=== PATIENT | female | born 1945 | race Caucasian/White ===

== ENCOUNTER 2016-09-19 22:43 | Inpatient (IN) | payer BC, OTHER ==
[~2016-09-19] VITALS: Ht 162.6 cm; Wt 102.3 kg
[~2016-09-19 22:43] MED LIST: ACET-1311 PO; ADVIN25050 INH; AMOX1TAB43 PO; CRDCD240 PO; DXY100 PO; EMOL-63 TOP; FERR325T74 PO; HYDR-5688 PO; INSU70IN2 SC; LEVO200T20 PO; LNX125 PO; LSX40 PO; MAGN400T6 PO; METO2.5T PO; NTRGSL4 SL; OMEP20CA9 PO; OXGN; POLY335019 PO; POTA20TA16 PO; RIVA1TAB4 PO; THEO300T5 PO; TIOTCAP INH; TRAM-10 PO
[2016-09-19] MEDS ORDERED: SODIUM CHLORIDE 0.9% 250ML 250 ML IV STA (22:58)
[2016-09-19] MEDS ORDERED: ACETAMINOPHEN 500 MG TAB PO STA (23:07)
[2016-09-19] MEDS ORDERED: DAPTOmycin IV 550 MG in SODIUM CHLORIDE 0.9% 50ML 50 ML IV STA (23:09)
[2016-09-19] MEDS ORDERED: IMIPENEM/CILASTATIN IV 500 MG in DEXTROSE 5% 100ML 100 ML IV STA (23:09)
[2016-09-19 23:22] LABS: ISTAT CREATININE 1.4 mg/dl (0.6-1.3); ISTAT HEMOGLOBIN 8.2 g/dl (12.0-16.0); ISTAT IONIZED CALCIUM 1.02 mmol/l (1.12-1.32)
[2016-09-19] MEDS ORDERED: NYSTATIN POWDER 15GM BTL EXT STA (23:24)
[2016-09-19] MEDS ORDERED: POTASSIUM CHLORIDE 10 MEQ TABCR PO STA (23:27)
[2016-09-19] MEDS ORDERED: OPTIRAY 320 IV PRN (23:30)
[2016-09-19 23:38] LABS: INR 1.2 (0.9-1.1); PARTIAL THROMBOPLASTIN RATIO 1.2; PROTHROMBIN TIME (PATIENT) 12.7 SECONDS (9.0-12.0)
[2016-09-19] MEDS ORDERED: NTRGSL/4 UT (23:40)
[2016-09-19] MEDS ORDERED: TRAM-10 PO (23:41)
[2016-09-19 23:47] LABS: MEAN CELL VOLUME 85.9 fL (80-100); MEAN CORPUSCULAR HEMOGLOBIN 30.2 pg (25-34); MEAN CORPUSCULAR HGB CONC 35.2 g/dl (32-36); MEAN PLATELET VOLUME 8.4 fL (7.4-10.4); PLATELET COUNT 234 K/uL (130-400); RED BLOOD COUNT 2.91 M/uL (4.2-5.4); WHITE BLOOD COUNT 36.44 K/uL (4.8-10.8)
[2016-09-19 23:52] LABS: BUN/CREATININE RATIO 18.2 (10-20); CALCIUM 8.7 mg/dl (8.5-10.1); CREATININE 1.5 mg/dl (0.60-1.20); MAGNESIUM 1.8 mg/dl (1.8-2.4); POTASSIUM 2.7 mmol/L (3.5-5.1)
[2016-09-19 23:55] LABS: ALB/GLOB RATIO 0.7 (0.9-2); BASO % 0.1 %; BASO ABS # 0.02 K/uL (0-0.2); COMPLETE YES; IG% 0.7 %; LYMPH % 0.8 %; LYMPH ABS # 0.28 K/uL (1.2-3.4); MONO % 1.3 %; NEUT % 97.1 %; PLT ESTIMATE NORMAL; POLYCHROMASIA 1+; SPHEROCYTE 2+
[2016-09-20] VITALS (8 sets, daily range): BP systolic 93–145; BP diastolic 47–71; PULSE 58–80; TEMP 36.8–37.4; O2SAT 96–100; BMI 37.5
[2016-09-20 00:03] LABS: BETA-HYDROXYBUTYRATE 2.03 mg/dL (0.2-2.81); CKMB/CK RATIO 0.6 (0-3.0); THYROID STIMULATING HORMONE 4.8 uIu/ml (0.300-4.500)
[2016-09-20] MEDS ORDERED: LEVO50TA6 PO (00:04)
[2016-09-20] MEDS ORDERED: SODIUM CHLORIDE 0.9% 1000ML 1,000 ML IV STA ×2 (00:15→01:12)
[2016-09-20 00:53] LABS: URINE APPEARANCE CLEAR (CLEAR); URINE BILIRUBIN NEG (NEG); URINE COLOR YELLOW; URINE NITRITE NEG (NEG); URINE SPECIFIC GRAVITY 1.011 (1.000-1.030); UROBILINOGEN NEG (NEG); ZZURINE CULT IF INDIC CATH NO
[2016-09-20 01:00] LABS: MANUAL MICROSCOPIC REQUIRED? NO; REVIEW REQ? NO
--- NOTE | 2016-09-20 01:12 | EMERGENCY ROOM VISIT NOTE ---
History First contact with patient: 22:49 Chief Complaint: FALL Stated Complaint: FALL/ DIZZY, SOB History of Present Illness The patient is a 71 year old female who presents to the Emergency Room with complaints of falls, fever and confusion for the past day. Patient fell twice today. Patient was just discharged from [facility] for a diabetic wound that has a wound VAC on it. Family denies chest pain, dyspnea, cough, congestion, vomiting, diarrhea. Patient was unable to get up so she summoned EMS. This is her second summoned EMS today. The first time she refused care. She is unsure she is currently on antibiotics. Review of Systems See HPI for pertinent positives & negatives. A total of 10 systems reviewed and were otherwise negative. Past Medical/Surgical History Medical Problems: (1) Ambulatory dysfunction (2) Ambulatory dysfunction (3) Anemia (4) CHF (congestive heart failure) (5) Cholecystectomy (6) Chronic congestive heart failure (7) Chronic obstructive lung disease (8) COPD exacerbation (9) Diabetes mellitus (10) History of anxiety (11) History of hypokalemia (12) Hypokalemia (13) Hypothyroidism (14) Obstructive sleep apnea (15) Open wound (16) PNA (pneumonia) (17) Shortness of breath Family History Heart disease Social History Smoking Status: Unknown if Ever Smoked Smokeless Tobacco Use: No Alcohol Use: none Drug Use: none Marital Status: Housing Status: lives with family, intermediate Occupation Status: disabled Current/Historical Medications Scheduled Digoxin (Digoxin), 0.125 MCG PO QAM Diltiazem Hcl Cd (Cardizem Cd *), 240 MG PO QAM Emollient (Eucerin), 1 APPLN TOP BID Ferrous Gluconate (Ferrous Gluconate), 650 MG PO BID Fluticasone Prop/Salmeterol (Advair Diskus 250/50 Mcg *), 1 PUFF INH BID Furosemide (Furosemide), 80 MG PO BID Insulin Human Isophan/Regular (Novolin 70/30), 90 UNITS SC BID Levothyroxine Sodium (Levoxyl), 200 MCG PO DAILY Levothyroxine Sodium (Levothyroxine Sodium), 50 MCG PO DAILY Magnesium Oxide (Mag-Ox), 400 MG PO BID Metolazone (Zaroxolyn), 2.5 MG PO MWF Nitroglycerin (Nitrostat), 0.4 MG UT PRN Omeprazole (Prilosec), 20 MG PO DAILY Oxygen (Oxygen), 3 LITERS NA CONTINOUS Potassium Ext Rel (Klor-Con), 40 MEQ PO QID Rivaroxaban (Xarelto), 20 MG PO DAILYBD Theophylline (Theophylline Cr), 600 MG PO HS Tiotropium [place] (Spiriva Handihaler), 1 CAP INH DAILY Scheduled PRN Acetaminophen (Tylenol), 650 MG PO Q8H PRN for mild pain or fever Polyethylene Glycol 3350 (Miralax), 17 GM PO DAILY PRN for Constipation Tramadol (Ultram), 50 MG PO Q6H PRN for Pain Allergies Coded Allergies: Duloxetine (Verified Adverse Reaction, Mild, DIZZINESS, 05/27/16) Indigotindisulfonate (Verified Adverse Reaction, Unknown, "spaced out", ) Physical Exam Vital Signs Date Time Temp Pulse Resp B/P Pulse Ox O2 Delivery O2 Flow Rate FiO2 09/19/16 23:22 99 Nasal Cannula 3.0 09/19/16 22:56 39.4 80 21 130/56 99 Nasal Cannula 3.0 Physical Exam VITALS: Vitals are noted on the nurse's note and reviewed by myself. Vital signs febrile GENERAL: Ill-appearing elderly female mildly confused SKIN: Left foot with wound VAC present with cellulitis extending up to the calf The rest of the skin was without rashes, erythema, edema, or bruising. . Capillary reflex less than 2 seconds. HEAD: Normocephalic atraumatic. EARS: External auditory canals clear, tympanic membranes pearly christine without erythema or effusion bilaterally. EYES: Pupils equal round and reactive to light and accommodation. Conjunctivae without injection, sclerae without icterus. Extraocular movements intact. NOSE: Patent, turbinates without inflammation or discharge. No sinus tenderness. MOUTH: Mucous membranes dry Pharynx without erythema or exudate. Uvula midline. Airway patent. Tongue does not deviate. NECK: Supple without nuchal rigidity. No lymphadenopathy. No thyromegaly. Cervical spine is nontender. No JVD. HEART irregularly irregular with 2/6 systolic murmur LUNGS: Clear to auscultation bilaterally without wheezes . No retractions or accessory muscle use. ABDOMEN: Positive bowel sounds x 4. Normal tympanic percussion. Soft, diffusely tender to palpation, no CVA tenderness, without masses or organomegaly. Mo sign negative. No guarding or rebound tenderness. MUSCULOSKELETAL: No muscle atrophy noted. NEURO: Patient was alert and oriented to person place. Normal sensation to light and sharp touch. No focal neurological deficits. Medical Decision & Procedures Laboratory Results 09/19/16 22:55 Red Blood Count 2.91, Mean Corpuscular Volume 85.9, Mean Corpuscular Hemoglobin 30.2, Mean Corpuscular Hemoglobin Concent 35.2, Mean Platelet Volume 8.4, Neutrophils (%) (Auto) 97.1, Lymphocytes (%) (Auto) 0.8, Monocytes (%) (Auto) 1.3, Eosinophils (%) (Auto) 0.0, Basophils (%) (Auto) 0.1, Neutrophils # (Auto) 35.40, Lymphocytes # (Auto) 0.28, Monocytes # (Auto) 0.49, Eosinophils # (Auto) 0.01, Basophils # (Auto) 0.02 09/19/16 22:55 Test 09/19/16 22:55 09/19/16 23:01 09/19/16 23:05 09/19/16 23:26 White Blood Count 36.44 K/uL (4.8-10.8) Red Blood Count 2.91 M/uL (4.2-5.4) Hemoglobin 8.8 g/dL (12.0-16.0) Hematocrit 25.0 % (37-47) Mean Corpuscular Volume 85.9 fL (80-100) Mean Corpuscular Hemoglobin 30.2 pg (25-34) Mean Corpuscular Hemoglobin Concent 35.2 g/dl (32-36) Platelet Count 234 K/uL (130-400) Mean Platelet Volume 8.4 fL (7.4-10.4) Neutrophils (%) (Auto) 97.1 % Lymphocytes (%) (Auto) 0.8 % Monocytes (%) (Auto) 1.3 % Eosinophils (%) (Auto) 0.0 % Basophils (%) (Auto) 0.1 % Neutrophils # (Auto) 35.40 K/uL (1.4-6.5) Lymphocytes # (Auto) 0.28 K/uL (1.2-3.4) Monocytes # (Auto) 0.49 K/uL (0.11-0.59) Eosinophils # (Auto) 0.01 K/uL (0-0.5) Basophils # (Auto) 0.02 K/uL (0-0.2) RDW Standard Deviation 57.5 fL (36.4-46.3) RDW Coefficient of Variation 18.5 % (11.5-14.5) Immature Granulocyte % (Auto) 0.7 % Immature Granulocyte # (Auto) 0.24 K/uL (0.00-0.02) Platelet Estimate NORMAL Polychromasia 1+ Basophilic Stippling 1+ Spherocytes 2+ Prothrombin Time 12.7 SECONDS (9.0-12.0) Prothromb Time International Ratio 1.2 (0.9-1.1) Activated Partial Thromboplast Time 30.8 SECONDS (21.0-31.0) Partial Thromboplastin Ratio 1.2 Est Creatinine Clear Calc Drug Dose 37.2 ml/min Estimated GFR () 39.9 Estimated GFR (Non- 34.4 BUN/Creatinine Ratio 18.2 (10-20) Calcium Level 8.7 mg/dl (8.5-10.1) Magnesium Level 1.8 mg/dl (1.8-2.4) Total Bilirubin 1.9 mg/dl (0.2-1) Aspartate Amino Transf (AST/SGOT) 15 U/L (15-37) Alanine Aminotransferase (ALT/SGPT) 13 U/L (12-78) Alkaline Phosphatase 106 U/L (45-117) Total Creatine Kinase 131 U/L (26-192) Creatine Kinase MB 0.8 ng/ml (0.5-3.6) Creatine Kinase MB Ratio 0.6 (0-3.0) Troponin I 0.038 ng/ml (0-0.045) Total Protein 6.5 gm/dl (6.4-8.2) Albumin 2.7 gm/dl (3.4-5.0) Globulin 3.8 gm/dl (2.5-4.0) Albumin/Globulin Ratio 0.7 (0.9-2) Beta-Hydroxybutyric Acid 2.03 mg/dL (0.2-2.81) Thyroid Stimulating Hormone (TSH) 4.800 uIu/ml (0.300-4.500) Digoxin Level 1.2 ng/ml (0.8-2.0) Bedside Lactic Acid Venous 2.73 mmol/L (0.90-1.70) Bedside Hemoglobin 8.2 g/dl (12.0-16.0) Bedside Hematocrit 24 % (37-47) Bedside Sodium 130 mEq/L (135-144) Bedside Potassium 2.7 mEq/L (3.3-5.0) Bedside Chloride 80 mEq/L (101-112) Bedside Total CO2 39 mEq/l (24-31) Anion Gap 15.0 mmol/L (16-25) Bedside Blood Urea Nitrogen 27 mg/dl (7-18) Bedside Creatinine 1.4 mg/dl (0.6-1.3) Bedside Glucose (other) 328 mg/dl (70-99) Bedside Ionized Calcium (Magdaleno) 1.02 mmol/l (1.12-1.32) Test 09/20/16 00:05 Urine Color YELLOW Urine Appearance CLEAR (CLEAR) Urine pH 6.0 (4.5-7.5) Urine Specific [place] 1.011 (1.000-1.030) Urine Protein TRACE (NEG) Urine Glucose (UA) NEG (NEG) Urine Ketones NEG (NEG) Urine Occult Blood NEG (NEG) Urine Nitrite NEG (NEG) Urine Bilirubin NEG (NEG) Urine Urobilinogen NEG (NEG) Urine Leukocyte Esterase NEG (NEG) Urine WBC (Auto) 0 /hpf (0-5) Urine RBC (Auto) 0-4 /hpf (0-4) Urine Hyaline Casts (Auto) 1-5 /lpf (0-5) Urine Epithelial Cells (Auto) 5-10 /lpf (0-5) Urine Bacteria (Auto) NEG (NEG) Medications Administered Medications (Trade) Dose Ordered Sig/Hans Route Start Time Stop Time Status Last Admin Dose Admin Sodium Chloride (Nss 250ml) 250 ml @ 999 mls/hr Q16M STAT IV 09/19/16 22:58 09/19/16 23:13 DC 09/19/16 22:58 999 MLS/HR Acetaminophen 1000 mg 1,000 mg NOW STAT PO 09/19/16 23:07 09/19/16 23:08 DC 09/19/16 23:58 1,000 MG Imipenem/ Cilastatin Sodium 500 mg/Dextrose 110 ml @ 100 mls/hr NOW STAT IV 09/19/16 23:09 09/20/16 00:14 DC 09/19/16 23:58 100 MLS/HR Daptomycin/Sodium Chloride (Cubicin IV/Nss 50ml) 61 ml @ 100 mls/hr NOW STAT IV 09/19/16 23:09 09/19/16 23:45 DC 09/19/16 23:58 100 MLS/HR Nystatin (Mycostatin Powder) 1 appln NOW STAT EXT 09/19/16 23:24 09/19/16 23:25 DC 09/19/16 23:57 1 APPLN Potassium Chloride 40 meq 40 meq NOW STAT PO 09/19/16 23:27 09/19/16 23:28 DC 09/19/16 23:58 40 MEQ Sodium Chloride (Nss 1000ml) 1,000 ml @ 999 mls/hr Q1H1M STAT IV 09/20/16 00:15 09/20/16 01:15 09/20/16 00:15 999 MLS/HR ED Course Prior records/ancillary studies reviewed. Triage Nursing notes reviewed. Additional history obtained from EMS. The patient's history was concerning for fever, fall, confusion. Differential diagnosis: Etiologies such as sepsis, UTI, pneumonia, metabolic, electrolyte abnormalities , cardiac sources, intracerebral event, toxicologic, neurologic, as well as others were entertained. Physical examination: As above. Pertinent findings were febrile and left lower leg infection from the wound ulcer. Vital signs reviewed and revealed febrile ER treatment provided: IV fluid resuscitation with Normal saline solution, 1250mL bolus. IV fluid hydration with Normal saline solution at 100 mL/hr. Blood and urine cultures Antibiotics:Imipenem, Daptomycin potassium, Tylenol On reassessment the patient vital signs improved. Diagnostics interpretation by me: ECG: Irregularly irregular with no acute ST-T wave changes, ventricular rate of 83. Impression atrial fibrillation interpreted by myself The labs revealed leukocytosis on CBC. Chemistry panel revealed hypokalemia. Elevated creatinine baseline for patient. LFTs revealed. Cardiac enzymes were negative. Serum Lactate measurement was 2.73. Blood and urine cultures are pending. Imaging studies: Chest xray revealed mild pulmonary congestion per my interpretation There is no evidence of acute intracranial hemorrhage, mass effect, or midline shift. There are involutional and chronic small vessel ischemic changes. Christine-white differentiation is preserved. There is intracranial atherosclerosis. The visualized paranasal sinuses and mastoid air cells are clear. The calvarium is intact. CT ABDOMEN & PELVIS: Findings: There is cardiomegaly. There is a 7.3 mm pulmonary nodule at the right lung base (series 4, image 14). There is a small hiatal hernia. Gallbladder is surgically absent. The liver demonstrates borderline in surface nodularity. The spleen is mildly enlarged. There are tortuous collateral vessels near the splenic hilum representing a spontaneous splenorenal shunt and indicative of portal hypertension. The pancreas and left adrenal gland are within normal limits. There is a 23 mm indeterminant nodule in the right adrenal gland. There is a cyst in the right kidney. The kidneys are otherwise similar in size and contour, without hydronephrosis. There is aortoiliac atherosclerosis without aneurysm. There is no evidence of bowel obstruction, appendicitis, or diverticulitis. Uterus and urinary bladder are unremarkable. There is no free fluid or free air. There is diffuse body wall edema. There are no acute osseous findings. Impression: 1. Subtle liver surface nodularity raising the possibility of cirrhosis, which is supported by the presence of mild splenomegaly and spontaneous splenorenal shunt. 2. 7.3 mm pulmonary nodule right lung base. Consider CT follow-upin 3-6 months to document stability. 3. 23 mm indeterminate nodule right adrenal gland. While this is likely an adenoma, it is incompletely evaluated without noncontrast images. Correlation with clinical history is recommended. Adrenal protocol CT may be obtained as clinically indicated. 4. Diffuse body wall edema Radiologist: Eboni Stokes M.D. Consultation: A consultation was placed with the Dr. Olea hospitalist. The case was discussed and diagnostics were reviewed. The patient was evaluated in the ER for further treatment. case reviewed with my Attending. Exam and history seem consistent with sepsis most likely from the wound infection. Patient was febrile and had a leukocytosis of 36,000. Potassium was replaced. She was started on broad-spectrum antibiotics and hydrated as above. She will be evaluated by medicine for admission. She was reassessed multiple times. Blood cultures are pending. Elevated lactic acid. I did review the wound clinic picture of the patient's leg and today is much worse from the other day. Medical Decision as above Impression Primary Impression: Sepsis Additional Impressions: Hypokalemia Leukocytosis Cellulitis of left lower leg Critical Care I have personally spent greater than 30 minutes of critical care time in the direct management of this patient. This includes bedside care, interpretation of diagnostic studies, and testing, discussion with consultants, patient, and family members, and other required patient management activities. This 30 minutes is in excess of all separately billable procedures. Departure Information Dispostion Being Evaluated By Hospitalist Condition FAIR Referrals Oscar Etienne M.D. (PCP) Patient Instructions My [facility] Problem Qualifiers Primary Impression: Sepsis Sepsis type: sepsis due to unspecified organism Qualified Codes: A41.9 - Sepsis, unspecified organism
[2016-09-20 01:19] LABS: INFLUENZA A PCR Neg for Influ A (NEG); INFLUENZA B PCR Neg for Influ B (NEG)
[2016-09-20] MEDS ORDERED: TRAMADOL HCL 50 MG TAB PO PRN (02:30)
[2016-09-20] MEDS ORDERED: ZOLPIDEM TARTRATE 5 MG TAB PO PRN (02:30)
[2016-09-20] MEDS ORDERED: NITROGLYCERIN 0.4 MG SL PER TAB CHARGE UT SCH (02:30)
[2016-09-20] MEDS ORDERED: POLYETHYLENE (MIRALAX) 17 GM PACK PO PRN (02:30)
[2016-09-20] MEDS ORDERED: ACETAMINOPHEN 325 MG TAB PO PRN (02:30)
[2016-09-20] MEDS ORDERED: MoRPHine SULFATE 4 MG/ML 1 ML CARP\\VIAL ONE (02:51)
[2016-09-20] MEDS ORDERED: GLUCOSE 40% GEL 15 GM TUBE PO PRN (03:00)
[2016-09-20] MEDS ORDERED: ONDANSETRON INJ 2 MG/ML 2 ML VIAL IV PRN (03:00)
[2016-09-20] MEDS ORDERED: DEXTROSE 50% 50 ML SYR IV PRN (03:00)
[2016-09-20] MEDS ORDERED: GLUCOSE 10 TABS/TUBE PO PRN (03:00)
[2016-09-20] MEDS ORDERED: GLUCAGON FOR INJ 1 MG VIAL SQ PRN (03:00)
[2016-09-20] MEDS ORDERED: MoRPHine SULFATE 2 MG/ML CARP IV PRN (03:30)
[2016-09-20] MEDS ORDERED: MoRPHine SULFATE 4 MG/ML 1 ML CARP\\VIAL IV PRN (03:30)
[2016-09-20] MEDS ORDERED: AZTREONAM IV 1,000 MG in DEXTROSE 5% 100ML 100 ML IV SCH (04:00)
[2016-09-20] MEDS ORDERED: ALBUMIN 25% 50 ML with FUROSEMIDE INJ 40 MG IV STA ×2 (04:00)
[2016-09-20] MEDS: LEVOTHYROXINE 50 MCG TAB PO SCH (05:53)
[2016-09-20] MEDS: LEVOTHYROXINE 200 MCG TAB PO SCH (05:53)
[2016-09-20] MEDS: TRAMADOL HCL 50 MG TAB PO PRN (06:24)
--- NOTE | 2016-09-20 06:26 | History and Physical ---
History & Physical Date & Time of Service: Sep 20, 2016 at 06:13 Chief Complaint: Cellulitis Of Left Lower Leg Primary Care Physician: Oscar Etienne M.D. History of Present Illness Source: patient The patient is a 71-year-old female who presents emergency department with complaint of 2 falls, confusion and fever for the past day prior to arrival. She was recently discharged from [facility] for a diabetic left lower extremity wound with wound VAC in place. She was unable to get up either time, and was instances called EMS. The first time she refused care from EMS, the second time she agreed to come to emergency department for assessment. Past Medical/Surgical History Medical Problems: (1) Ambulatory dysfunction Status: Chronic (2) CHF (congestive heart failure) Status: Chronic (3) Cholecystectomy Status: Resolved (4) Chronic congestive heart failure Status: Chronic (5) Chronic obstructive lung disease Status: Chronic (6) COPD exacerbation Status: Resolved (7) Diabetes mellitus Status: Chronic (8) History of anxiety Status: Chronic (9) History of hypokalemia Status: Chronic (10) Hypothyroidism Status: Chronic (11) Obstructive sleep apnea Status: Chronic (12) PNA (pneumonia) Status: Resolved Family History Heart disease Social History Smoking Status: Former Smoker Smokeless Tobacco Use: No Alcohol Use: none Drug Use: none Marital Status: Housing status: lives alone Occupational Status: disabled Immunizations History of Influenza Vaccine: Unknown Influenza Vaccine Date: Jun 23, 2013 History of Tetanus Vaccine?: Unknown History of Pneumococcal: Unknown Pneumococcal Date: Jun 23, 2011 History of Hepatitis B Vaccine: Unknown Multi-Drug Resistant Organisms History of MDRO: No Type of MDRO: MRSA Allergies Coded Allergies: Duloxetine (Verified Adverse Reaction, Mild, DIZZINESS, 05/27/16) Indigotindisulfonate (Verified Adverse Reaction, Unknown, "spaced out", ) Home Medications Scheduled Digoxin (Digoxin), 0.125 MCG PO QAM Diltiazem Hcl Cd (Cardizem Cd *), 240 MG PO QAM Emollient (Eucerin), 1 APPLN TOP BID Ferrous Gluconate (Ferrous Gluconate), 650 MG PO BID Fluticasone Prop/Salmeterol (Advair Diskus 250/50 Mcg *), 1 PUFF INH BID Furosemide (Furosemide), 80 MG PO BID Insulin Human Isophan/Regular (Novolin 70/30), 90 UNITS SC BID Levothyroxine Sodium (Levoxyl), 200 MCG PO DAILY Levothyroxine Sodium (Levothyroxine Sodium), 50 MCG PO DAILY Magnesium Oxide (Mag-Ox), 400 MG PO BID Metolazone (Zaroxolyn), 2.5 MG PO MWF Nitroglycerin (Nitrostat), 0.4 MG UT PRN Omeprazole (Prilosec), 20 MG PO DAILY Oxygen (Oxygen), 3 LITERS NA CONTINOUS Potassium Ext Rel (Klor-Con), 40 MEQ PO QID Rivaroxaban (Xarelto), 20 MG PO DAILYBD Theophylline (Theophylline Cr), 600 MG PO HS Tiotropium [place] (Spiriva Handihaler), 1 CAP INH DAILY Scheduled PRN Acetaminophen (Tylenol), 650 MG PO Q8H PRN for mild pain or fever Polyethylene Glycol 3350 (Miralax), 17 GM PO DAILY PRN for Constipation Tramadol (Ultram), 50 MG PO Q6H PRN for Pain Review of Systems The patient denies chest pain, palpitations, shortness of breath, cough, lower extremity swelling, vision change, hearing change, sore throat, sweats, weight change, nausea, vomiting, abdominal pain, pelvic pain, blood in urine or stool , dysuria, urinary frequency or urgency, memory loss, rash, abnormal bruising or bleeding, focal weakness, night sweats, or allergy symptoms. The review of systems is otherwise negative other than for that already noted above, and at least 10 systems have been reviewed. Physical Exam Vital Signs Date Time Temp Pulse Resp B/P Pulse Ox O2 Delivery O2 Flow Rate FiO2 09/20/16 04:45 37.4 75 16 93/54 96 Nasal Cannula 3.0 09/20/16 04:35 37.0 75 18 97/47 96 Nasal Cannula 3.0 09/20/16 03:16 77 17 105/37 94 Nasal Cannula 3.0 09/20/16 03:13 75 09/20/16 02:20 78 17 105/34 96 Nasal Cannula 3.0 09/20/16 01:10 76 18 104/33 99 Nasal Cannula 3.0 09/20/16 00:10 72 09/19/16 23:22 99 Nasal Cannula 3.0 09/19/16 22:56 39.4 80 21 130/56 99 Nasal Cannula 3.0 The patient is awake, alert and oriented 3, normocephalic and atraumatic, lying in bed and in no acute distress. HEENT--PERRL, mucous membranes moist, and oropharynx normal. Neck--supple, no JVD or bruits, thyroid normal, trachea midline, no adenopathy. Heart--normal S1 and S2, no extra beats, no murmurs, rubs or gallops. Lungs--clear bilaterally with good air movement, no respiratory distress, no accessory muscle use. Abdomen--normal bowel sounds and soft, nontender and nondistended, no hernias or masses, no organomegaly and obese Extremities--no cyanosis, clubbing. She has generalized pitting edema lower extremity, upper extremity and abdominal wall. The left lower extremity has diffuse erythema and warmth involving the entire foot and three quarters [address] the way up the tibial shaft. Dermatologic--as noted above. Neurologic--cranial nerves II through XII grossly intact. Psychiatric--normal affect. Diagnostics Laboratory Results Results Past 24 Hours Test 09/19/16 22:55 09/19/16 23:01 09/19/16 23:05 09/19/16 23:26 Range/Units White Blood Count 36.44 4.8-10.8 K/uL Red Blood Count 2.91 4.2-5.4 M/uL Hemoglobin 8.8 12.0-16.0 g/dL Hematocrit 25.0 37-47 % Mean Corpuscular Volume 85.9 80-100 fL Mean Corpuscular Hemoglobin 30.2 25-34 pg Mean Corpuscular Hemoglobin Concent 35.2 32-36 g/dl Platelet Count 234 130-400 K/uL Mean Platelet Volume 8.4 7.4-10.4 fL Neutrophils (%) (Auto) 97.1 % Lymphocytes (%) (Auto) 0.8 % Monocytes (%) (Auto) 1.3 % Eosinophils (%) (Auto) 0.0 % Basophils (%) (Auto) 0.1 % Neutrophils # (Auto) 35.40 1.4-6.5 K/uL Lymphocytes # (Auto) 0.28 1.2-3.4 K/uL Monocytes # (Auto) 0.49 0.11-0.59 K/uL Eosinophils # (Auto) 0.01 0-0.5 K/uL Basophils # (Auto) 0.02 0-0.2 K/uL RDW Standard Deviation 57.5 36.4-46.3 fL RDW Coefficient of Variation 18.5 11.5-14.5 % Immature Granulocyte % (Auto) 0.7 % Immature Granulocyte # (Auto) 0.24 0.00-0.02 K/uL Platelet Estimate NORMAL Polychromasia 1+ Basophilic Stippling 1+ Spherocytes 2+ Prothrombin Time 12.7 9.0-12.0 SECONDS Prothromb Time International Ratio 1.2 0.9-1.1 Activated Partial Thromboplast Time 30.8 21.0-31.0 SECONDS Partial Thromboplastin Ratio 1.2 Sodium Level 133 136-145 mmol/L Potassium Level 2.7 3.5-5.1 mmol/L Chloride Level 83 98-107 mmol/L Carbon Dioxide Level 37 21-32 mmol/L Anion Gap 13.0 15.0 16-25 mmol/L Blood Urea Nitrogen 27 7-18 mg/dl Creatinine 1.50 0.60-1.20 mg/dl Est Creatinine Clear Calc Drug Dose 37.2 ml/min Estimated GFR () 39.9 Estimated GFR (Non- 34.4 BUN/Creatinine Ratio 18.2 10-20 Random Glucose 322 70-99 mg/dl Calcium Level 8.7 8.5-10.1 mg/dl Magnesium Level 1.8 1.8-2.4 mg/dl Total Bilirubin 1.9 0.2-1 mg/dl Aspartate Amino Transf (AST/SGOT) 15 15-37 U/L Alanine Aminotransferase (ALT/SGPT) 13 12-78 U/L Alkaline Phosphatase 106 45-117 U/L Total Creatine Kinase 131 26-192 U/L Creatine Kinase MB 0.8 0.5-3.6 ng/ml Creatine Kinase MB Ratio 0.6 0-3.0 Troponin I 0.038 0-0.045 ng/ml Total Protein 6.5 6.4-8.2 gm/dl Albumin 2.7 3.4-5.0 gm/dl Globulin 3.8 2.5-4.0 gm/dl Albumin/Globulin Ratio 0.7 0.9-2 Beta-Hydroxybutyric Acid 2.03 0.2-2.81 mg/dL Thyroid Stimulating Hormone (TSH) 4.800 0.300-4.500 uIu/ml Digoxin Level 1.2 0.8-2.0 ng/ml Bedside Lactic Acid Venous 2.73 0.90-1.70 mmol/L Bedside Hemoglobin 8.2 12.0-16.0 g/dl Bedside Hematocrit 24 37-47 % Bedside Sodium 130 135-144 mEq/L Bedside Potassium 2.7 3.3-5.0 mEq/L Bedside Chloride 80 101-112 mEq/L Bedside Total CO2 39 24-31 mEq/l Bedside Blood Urea Nitrogen 27 7-18 mg/dl Bedside Creatinine 1.4 0.6-1.3 mg/dl Bedside Glucose (other) 328 70-99 mg/dl Bedside Ionized Calcium (Magdaleno) 1.02 1.12-1.32 mmol/l Influenza Type A (RT-PCR) Neg for Influ A NEG Influenza Type B (RT-PCR) Neg for Influ B NEG Test 09/20/16 00:05 09/20/16 02:13 Range/Units Urine Color YELLOW Urine Appearance CLEAR CLEAR Urine pH 6.0 4.5-7.5 Urine Specific [place] 1.011 1.000-1.030 Urine Protein TRACE NEG Urine Glucose (UA) NEG NEG Urine Ketones NEG NEG Urine Occult Blood NEG NEG Urine Nitrite NEG NEG Urine Bilirubin NEG NEG Urine Urobilinogen NEG NEG Urine Leukocyte Esterase NEG NEG Urine WBC (Auto) 0 0-5 /hpf Urine RBC (Auto) 0-4 0-4 /hpf Urine Hyaline Casts (Auto) 1-5 0-5 /lpf Urine Epithelial Cells (Auto) 5-10 0-5 /lpf Urine Bacteria (Auto) NEG NEG Lactic Acid Level 2.6 0.4-2.0 mmol/L Microbiology Results 09/19/16 Blood Culture, Received Pending 09/19/16 Blood Culture, Received Pending Impression Assessment and Plan Left lower extremity cellulitis in the setting of a diabetic foot infection with wound VAC in place--she will be admitted to the medical floor. We'll place her on daptomycin 550 mg IV daily, and Zosyn 3.375 mg IV every 8 hours. We'll consult wound care, and infectious disease. Diabetes mellitus--continue Novolin 70/30 9 units subcutaneous twice a day, will place on Accu-Cheks before meals and at bedtime with NovoLog coverage. CAD/hypertension/CHF/anasarca/hypokalemia/dysrhythmia--continue digoxin 0.125 mg by mouth every morning, Cardizem CD 240 mg by mouth every morning, mag oxide 400 mg by mouth twice a day, nitroglycerin sublingual when necessary, potassium extended release 40 mEq by mouth 4 times a day, Xarelto 20 mg by mouth daily. We'll change furosemide 80 mg by mouth twice a day 2 albumin 25 g with Lasix 40 mg IV 4 times a day. We will hold Zaroxolyn 2.5 mg by mouth every Friday , Friday, Friday. Hypothyroidism--continue levothyroxine sodium at 250 g by mouth daily. COPD--continue Advair Diskus 250/50 one inhalation twice a day, Spiriva HandiHaler 1 inhalation every morning, and theophylline CR 600 mg by mouth at bedtime. GERD--change omeprazole 20 mg by mouth daily to pantoprazole 40 mg by mouth daily. Level of Care Med/Surg Advanced Directives Existing Advance Directive: Yes Existing Living Will: Yes Existing Power of Contractor Field Hauling: Yes Resuscitation Status FULL RESUSCITATION VTE Prophylaxis VTE Risk Assessment Done? Y/N: Yes Risk Level: Moderate
--- NOTE | 2016-09-20 06:55 | DIAGNOSTIC IMAGING REPORT ---
CHEST ONE VIEW PORTABLE CLINICAL HISTORY: Sepsis. Fall. COMPARISON STUDY: Chest radiograph June 24, 2016. FINDINGS: Lung volumes are normal. No consolidation is identified. Moderate cardiomegaly is unchanged. Upper mediastinal widening is unchanged. Prominence of the vascular is unchanged. There is no evidence for overt pulmonary edema. IMPRESSION: No acute cardiopulmonary findings. Stable cardiomegaly and pulmonary vascular congestion. Electronically signed by: Joe Rajput M.D. 09/20/2016 6:53 AM Dictated Date/Time: 09/20/2016 6:52 AM
--- NOTE | 2016-09-20 07:15 | DIAGNOSTIC IMAGING REPORT ---
HEAD CT NONCONTRAST CT DOSE: 2094.11 mGy.cm HISTORY: Altered mental status. TECHNIQUE: Multiaxial CT images of the head were performed without the use of intravenous contrast. Automated exposure control was utilized for this study. Comparison: Head CT 03/27/2008. Findings: The paranasal sinuses and mastoid air cells are clear. The calvarium and skull base are intact. The ventricles and sulci are within normal limits. There is no mass, hematoma, midline shift, or acute infarct. Impression: No acute intracranial abnormality. Electronically signed by: Alexander Herman M.D. 09/20/2016 7:14 AM Dictated Date/Time: 09/20/2016 7:09 AM
--- NOTE | 2016-09-20 07:50 | DIAGNOSTIC IMAGING REPORT ---
CT OF THE ABDOMEN AND PELVIS WITH CONTRAST CLINICAL HISTORY: Altered mental status. Abdominal pain. COMPARISON STUDY: CT of the abdomen and pelvis December 13, 2008 TECHNIQUE: Following IV administration of 92 mL of Optiray-320, axial images of the abdomen and pelvis were obtained from the lung bases to the proximal femurs. Images were reviewed in the axial, sagittal, and coronal planes. IV contrast was administered without complication. FINDINGS: Moderate cardiomegaly is noted. Note is made of a 7 mm right lower lobe nodule which is new since CT of December 13, 2008. This is shown on image 12 of 98. There may be a partially visualized right middle lobe nodule shown on image 1. No pneumatosis, free air or portal venous gas is present. There is a moderate sized hiatal hernia. The liver is likely cirrhotic. The gallbladder is surgically absent. There is moderate splenomegaly. Left upper quadrant collaterals are noted with a suspected splenorenal shunt. There may be small bilateral renal calculi. There is no hydronephrosis. Note is made of a 2.5 cm cyst within the upper pole of the right kidney. A 2.8 cm right adrenal nodule has increased in size since exam of December 13, 2008 but likely reflects an adenoma. There is no evidence for a bowel obstruction. Anasarca is noted. There is mild endometrial thickening in a postmenopausal patient. There are multiple mildly enlarged aortoiliac as well as inguinal lymph nodes. An index left common iliac node measures 1.3 cm in short axis diameter. An index left external iliac node measures 1.3 cm an index left inguinal node measures 1.4 cm. Apparent rectal wall thickening is probably due to underdistention. IMPRESSION: 1. Suspected cirrhosis with manifestations of portal hypertension including mild to moderate splenomegaly and varices formation with a splenorenal shunt. No ascites. Anasarca. 2. Interval development of a 7 mm right lower lobe nodule and a possible right middle lobe nodule which is partially imaged on this exam. A follow-up chest CT is recommended on nonemergent basis. 3. Mild endometrial thickening in a postmenopausal patient. Correlation with postmenopausal bleeding is recommended as well as follow-up pelvic ultrasound. 4. Mild aortoiliac and inguinal lymphadenopathy. This could be reactive given lower extremity cellulitis although a neoplastic process could appear similar. A short-term follow-up CT of the abdomen and pelvis in 2 months is recommended. 5. 2.8 cm right adrenal nodule which likely reflects an adenoma. Discussed with Dr. Coe at time of dictation. 6. Mild nonspecific rectal wall thickening which may be due to underdistention. Electronically signed by: Joe Rajput M.D. 09/20/2016 7:48 AM Dictated Date/Time: 09/20/2016 7:15 AM
[2016-09-20] MEDS: INSULIN ASPART 100 UNITS/ML 3 ML PEN SC SCH ×4 (08:25→20:34)
[2016-09-20] MEDS: INSULIN HUMAN 70% NPH/30% REGULAR SC SCH ×2 (08:26→17:31)
[2016-09-20] MEDS: EUCERIN CR 120 GM JAR EXT SCH ×2 (08:37→20:39)
[2016-09-20] MEDS: FERROUS GLUCONATE 324 MG TAB PO SCH ×2 (08:37→17:34)
[2016-09-20] MEDS: FLUTICASONE/SALMETEROL 250/50 (ADVAIR) 14 PUFF/1 INHALER INH SCH ×2 (08:37→20:39)
[2016-09-20] MEDS: TIOTROPIUM BROMIDE 5 PUFF/90 MCG INH INH SCH (08:38)
[2016-09-20] MEDS: DILTIAZEM HCL 240 MG CAPCR PO SCH (08:39)
[2016-09-20] MEDS: MAGNESIUM OXIDE 400 MG TAB PO SCH ×2 (08:39→20:40)
[2016-09-20] MEDS: POTASSIUM CHLORIDE 20 MEQ TABCR PO SCH ×4 (08:39→20:40)
[2016-09-20] MEDS: PANTOprazole SOD 40 MG TAB PO SCH (08:40)
[2016-09-20] MEDS ORDERED: ALBUMIN 25% 50 ML with FUROSEMIDE INJ 40 MG IV SCH ×4 (09:00→11:00)
[2016-09-20 09:30] LABS: BUN/CREATININE RATIO 16.9 (10-20); CALCIUM 8.4 mg/dl (8.5-10.1); CREATININE 1.9 mg/dl (0.60-1.20); POTASSIUM 2.8 mmol/L (3.5-5.1)
[2016-09-20 09:32] LABS: BETA-HYDROXYBUTYRATE 3.08 mg/dL (0.2-2.81)
[2016-09-20] MEDS ORDERED: INSULIN GLARGINE PER UNIT 30 UNITS in SYRINGE 0 ML SC STA (09:47)
[2016-09-20] MEDS ORDERED: POTASSIUM CHLORIDE 10 MEQ TABCR PO ONE (10:15)
[2016-09-20] MEDS ORDERED: INSULIN GLARGINE SOLOSTAR 100 UNITS/ML 3 ML PEN SC ONE (10:15)
[2016-09-20] MEDS: POTASSIUM CHLR 10 MEQ / WTR 10 MEQ in PREMIXED WATER 100 ML IV SCH ×4 (10:24→17:28)
--- NOTE | 2016-09-20 10:26 | Progress Note ---
Progress Note ID Consult Dictated #[id number] A/P: 1. LLE cellulitis/diabetic foot ulcer, concerning for osteo 2. Leukocytosis 3. Fever -Continue emperic abx, follow cultures -Wound care eval pending, suggest re-imaging of foot -Will need prolonged abx and follow up post d/c, maintain broad spectrum Iv abx for now pending additional workup -C. 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
[2016-09-20] MEDS ORDERED: PIPERACILL/TAZOBAC CONSULT ACTIVE PRN (11:00)
[2016-09-20] MEDS ORDERED: PIPERACILL/TAZOBAC IV 4.5 GM in DEXTROSE 5% 100ML IV ONE (11:00)
--- NOTE | 2016-09-20 11:12 | INFECT. DISEASE CONSULTATION ---
DATE OF CONSULTATION: 09/20/2016 DATE OF CONSULTATION: 09/20/2016. REQUESTING PHYSICIAN: Dr. Bhakta. HISTORY OF PRESENT ILLNESS: This is a 71-year-old female who was admitted from home after she had 2 days of weakness and nausea at home. She states she did have 1 day of diarrhea prior to admission as well. She states her son has been sick with GI flu and she feels that she had the same illness. She denies any fevers or chills. She is being followed at the wound care center for a left heel ulceration. She was admitted in late July to early August with the same. At that time she was followed by infectious diseases. A culture of ulcer grew group B strep and MRSA. She was discharged on a 4-week course of oral doxycycline and Augmentin. She also has had a VAC in place. She was at rehab and now is discharged to home. She states that she did stop her antibiotics within the last week to 10 days. She denies having any diarrhea, nausea, vomiting or abdominal pain while on antibiotics. She has been followed routinely at the wound care center for VAC care and wound debridement. She was last there on 09/11/2016 and had a culture obtained from the heel that grew Enterobacter with resistance to Rocephin only. She currently is not on any antibiotics. She was to follow up this past Friday to review culture results and potentially start antibiotics; however, due to the weather she was unable to make her appointment. She has been receiving VAC changes at home; however with home care. She states they have been checking her temperature at each visit and she has not had any fevers documented. She does complain of pain in the left lower extremity but also significant neuropathy. She did have a fever of 39.4 on arrival to the hospital yesterday. She states over the last 24-48 hours, she has had increasing weakness and dizziness and associated nausea. She does admit to poor p.o. intake as well. For this reason, she called EMS. They did arrive and she initially refused transport to the hospital, but continued to feel worse and called EMS a second time. She then was transferred to the hospital. In the Emergency Room, she was found to have markedly elevated white blood cell count of 36.4. She has been started on empiric antibiotics consisting of daptomycin and Zosyn. She also received one time dose of imipenem in the Emergency Room. Cultures are pending at this time. She has been afebrile since admission to the hospital. On my examination her major complaint is of nausea. She was given medication this morning and she states it did give her relief. She denies any cough, shortness of breath or chest pain. She currently denies any nausea, vomiting, diarrhea, or abdominal pain but does admit to continued poor appetite. She denies any urinary complaints. She does have pain in the left lower extremity. The VAC is currently off pending wound care evaluation. All remaining review of systems are reviewed and are negative except or as noted above. PAST MEDICAL HISTORY: Significant for ambulatory dysfunction, congestive heart failure, COPD, type 2 diabetes, anxiety, hypothyroidism, obstructive sleep apnea. PAST SURGICAL HISTORY: Significant for cholecystectomy and multiple foot debridements with wound VAC. FAMILY HISTORY: Noncontributory. SOCIAL HISTORY: Significant for history of tobacco use. She denies any alcohol or drug use. She lives at home. ALLERGIES: SHE HAS ALLERGIES TO DULOXETINE. CURRENT MEDICATIONS: Include daptomycin, theophylline, digoxin, Xarelto, Lasix, potassium, insulin, Cardizem, Advair, magnesium, potassium, Spiriva, Protonix, insulin, iron, Synthroid, aztreonam, Percocet, morphine, Ultram, Zofran, Ambien, Tylenol, MiraLax. PHYSICAL EXAMINATION: VITAL SIGNS: Her temperature on admission was 39.4. Her current temperature is 37.1, pulse 73, respiratory rate 20, blood pressure 145/68, oxygen saturation is 98% on 3 liters nasal cannula. GENERAL: She is awake, alert and oriented x3. She is in no acute distress. HEAD, EYES, EARS, NOSE, AND THROAT: Mucous membranes are dry. HEART: Regular. LUNGS: Clear. ABDOMEN: Soft with minimal tenderness. There is no rebound, rigidity or guarding. EXTREMITIES: Examination of the lower extremities reveals chronic changes bilaterally. The left lower extremity does have warmth, erythema and tenderness to mid calf. There is significant edema around the heel ulceration. There is no active purulent drainage; however, there is significant ulceration of the left heel with surrounding induration, edema and erythema. LABORATORY STUDIES: CBC yesterday reveals a white blood cell count of 36.4, hemoglobin 8.8, hematocrit 25, platelets are 234. Chemistry panel today reveals a sodium of 133, potassium 2.8, chloride 86, bicarbonate 34, BUN 32, creatinine 1.9, anion gap is 13, glucose is 373. Lactic acid is 2.1. LFTs are within normal limits. Urinalysis today is unremarkable. Flu swab was negative. Blood cultures are pending. Wound culture from the 4th grew Enterobacter with resistance to Rocephin only. Previous blood culture from 08/06/2016 grew group B strep and MRSA. Review of imaging CT of the abdomen and pelvis was done this morning. No free air is identified. Moderate splenomegaly is found. No hydronephrosis. There is a cyst in the right kidney, no bowel obstruction is noted, questionable cirrhosis with portal hypertension. Seven millimeter right lower lobe nodule. CT of the head was done in the Emergency Room and showed no abnormality. A chest x-ray was done in the Emergency Room and shows no evidence of pneumonia. There was some pulmonary congestion. She did have a foot x-ray on 08/06/2016 that showed no evidence to suggest osteomyelitis. No repeat foot imaging has been done since that time. ASSESSMENT AND PLAN: 1. Left lower extremity cellulitis with a heel ulceration and diabetic foot ulcer. 2. Significant leukocytosis and fever on admission. PLAN: At this time, she will be continued on empiric antibiotics. A C. diff has been ordered and is pending. If she has any clinical worsening empiric oral vancomycin could be administered. She was on a prolonged course of doxycycline and Augmentin prior to this admission so certainly would be at risk for C. diff. A wound care evaluation is pending regarding her heel ulceration. Certainly the Enterobacter would be susceptible to oral antibiotics; however, additional information should be obtained regarding extensive injury either with x-rays or CAT scan. Her last foot imaging was at the end of July and did not show osteomyelitis; however, she continues now with the open wound. She will need continued followup with infectious diseases after her discharge from the hospital. Certainly can be done at the wound center; however, we will follow along with you. Thank you for this consultation.
[2016-09-20] MEDS ORDERED: PIPERACILL/TAZOBAC IV 3.375 GM in DEXTROSE 5% 100ML 100 ML IV SCH (12:00)
--- NOTE | 2016-09-20 12:00 | Nephrology Consultation ---
Nephrology Consultation Date & Providers Date of Consultation: Sep 20, 2016. Primary Care Provider: Oscar Etienne M.D. Referring Provider: Reason for Consultation AINSLEY and hypokalemia History of Present Illness Valery is a 71 y o F with PMH significant for CKD, HTN, COPD, CHF, chronic LE edema and ambulatory dysfunction admitted to the hospital after she had recurrent fall at home. Nephrology consult was requested to manage AINSLEY and hypokalemia. EMR records were reviewed in detail during pts visit. Valery has baseline stage 3 CKD but her cr has been variable overtime and has been some where around 1.3-1.5. Seems to be volume sensitive as she has been on high dose of diuretics for chronic CHF and LE edema. At home she was on lasix 80 BID and metolazone which is currently on hold. Over last few days she was generally not feeling well, has been having poor po intake and had episodes of diarrhea but she continued on her regular dose of diuretics. Yesterday she had 2 episodes of fall at home and after second fall she was brought to ED by EMS. Her cr on admission was 1.5 and K was 2.7 which worsened further to 1.9 this am. UA with trace proteinuria but no hematuria. Her BP has been extremily variable since yesterday with several hypotensive episode but now improved. CT abdomen/pelvis on admission with Iv contrast was negative for post renal obstruction but had multiple intra abdominal enlarged LN. Also found to have endometrial thickening and lung nodule. She has chronic LE ulcer and there was concern for osteomyelitis. She was seen by ID and started on Daptomycin and Imepnem. Currently over all she continues to feel poorly and hurting all over but denies nausea, SOB, CP. Johnston catheter was placed. Allergies Coded Allergies: Duloxetine (Verified Adverse Reaction, Mild, DIZZINESS, 05/27/16) Indigotindisulfonate (Verified Adverse Reaction, Unknown, "spaced out", ) Inpatient Medications Current Inpatient Medications Medications (Trade) Dose Ordered Sig/Hans Route Start Time Stop Time Status Last Admin Dose Admin Ioversol (Optiray 320) 100 ml UD PRN IV 09/19/16 23:30 09/23/16 23:29 Zolpidem Tartrate (Ambien Tab) 5 mg HSZ PRN PO 09/20/16 02:30 10/20/16 02:29 Acetaminophen (Tylenol Tab) 650 mg Q8H PRN PO 09/20/16 02:30 10/20/16 02:29 Digoxin (Lanoxin Tab) 0.125 mg DAILY@1600 PO 09/20/16 16:00 10/20/16 15:59 Diltiazem HCl (Cardizem Cd Cap) 240 mg QAM PO 09/20/16 09:00 10/20/16 08:59 09/20/16 08:39 240 MG Salmeterol Xinafoate/ Fluticasone (Advair Diskus 250/50 Inh) 1 puff BID INH 09/20/16 09:00 10/20/16 08:59 09/20/16 08:37 1 PUFF Insulin Human Isoph/Insulin Regular (novoLIN 70/30 REGULAR) 90 units BIDM SC 09/20/16 08:00 10/20/16 07:59 09/20/16 08:26 90 UNITS Levothyroxine Sodium (Synthroid Tab) 200 mcg DAILYBB PO 09/20/16 06:30 10/20/16 06:29 09/20/16 05:53 200 MCG Magnesium Oxide (Mag-Ox Tab) 400 mg BID PO 09/20/16 09:00 10/20/16 08:59 09/20/16 08:39 400 MG Nitroglycerin (Nitrostat Tab) 0.4 mg PRN UT 09/20/16 02:30 10/20/16 02:29 Potassium Chloride (Klor-Con Tab) 40 meq QID PO 09/20/16 09:00 10/20/16 08:59 09/20/16 08:39 40 MEQ Rivaroxaban (Xarelto Tab) 20 mg DAILYBD PO 09/20/16 16:00 10/20/16 15:59 Theophylline (Paul-Dur Extended Rel Tab) 600 mg HS PO 09/20/16 21:00 10/20/16 20:59 Tiotropium [place] (Spiriva Handihaler Inhaler) 1 puff DAILY INH 09/20/16 09:00 10/20/16 08:59 09/20/16 08:38 1 PUFF Multi-Ingredient Ointment (Eucerin Unscented Cr) 1 appln BID EXT 09/20/16 09:00 10/20/16 08:59 09/20/16 08:37 1 APPLN Ferrous Gluconate (Ferrous Gluconate Tab) 648 mg BIDM PO 09/20/16 08:00 10/20/16 07:59 09/20/16 08:37 648 MG Pantoprazole Sodium (Protonix Tab) 40 mg QAM PO 09/20/16 09:00 10/20/16 08:59 09/20/16 08:40 40 MG Polyethylene (Miralax Powder Packet) 17 gm DAILY PRN PO 09/20/16 02:30 10/20/16 02:29 Ondansetron HCl (Zofran Inj) 4 mg Q6H PRN IV 09/20/16 03:00 10/20/16 02:59 09/20/16 08:34 4 MG Insulin Aspart (novoLOG ASPART) SLIDING SCALE If C... ACHS SC 09/20/16 06:30 10/20/16 06:59 09/20/16 08:25 10 UNITS Glucose (Glucose 40% Gel) UD PRN PO 09/20/16 03:00 10/20/16 02:59 Glucose (Glucose Chew Tab) 1 tabs UD PRN PO 09/20/16 03:00 10/20/16 02:59 Dextrose (Dextrose 50% 50ML Syringe) 50 ml UD PRN IV 09/20/16 03:00 10/20/16 02:59 Glucagon (Glucagon Inj) 1 mg UD PRN SQ 09/20/16 03:00 10/20/16 02:59 Acetaminophen/ Hydrocodone Bitart ([place] 5/325 Tab) 1 tab Q6H PRN PO 09/20/16 03:30 10/04/16 03:29 Acetaminophen/ Hydrocodone Bitart ([place] 5/325 Tab) 2 tab Q6H PRN PO 09/20/16 03:30 10/04/16 03:29 Morphine Sulfate (MoRPHine SULFATE INJ) 2 mg Q2H PRN IV 09/20/16 03:30 10/04/16 03:29 Morphine Sulfate (MoRPHine SULFATE INJ) 4 mg Q2H PRN IV 09/20/16 03:30 10/04/16 03:29 Tramadol HCl (Ultram Tab) 50 mg Q4H PRN PO 09/20/16 03:30 10/20/16 03:29 09/20/16 06:24 50 MG Tramadol HCl 100 mg 100 mg Q4H PRN PO 09/20/16 03:30 10/20/16 03:29 Daptomycin/Sodium Chloride (Cubicin IV/Nss 50ml) 61 ml @ 100 mls/hr DAILY@0000 IV 09/21/16 00:00 09/29/16 00:37 Levothyroxine Sodium 50 mcg 50 mcg DAILYBB PO 09/20/16 06:30 10/20/16 06:29 09/20/16 05:53 50 MCG Furosemide 40 mg/ Albumin Human 54 ml @ 54 mls/hr BID@0900,2100 IV 09/20/16 11:00 09/22/16 21:59 09/20/16 10:32 54 MLS/HR Potassium Chloride/Prmx (Kcl 10 Meq / Wtr/Premixed Water) 100 ml @ 100 mls/hr Q1H IV 09/20/16 10:30 09/20/16 12:29 09/20/16 10:24 100 MLS/HR Piperacillin Sod/ Tazobactam Sod 1 ea 1 ea UD PRN N/A 09/20/16 11:00 10/20/16 10:59 Piperacillin Sod/ Tazobactam Sod 4.5 gm/Dextrose 120 ml @ 200 mls/hr NOW ONCE IV 09/20/16 11:00 09/20/16 11:35 Piperacillin Sod/ Tazobactam Sod/ Dextrose (Zosyn Iv/D5 100ml) 120 ml @ 30 mls/hr Q8H IV 09/20/16 16:00 10/20/16 15:59 Family History Heart disease Social History Smoking Status: Former Smoker Smokeless Tobacco Use: No Alcohol Use: none Drug Use: none Marital Status: Housing Status: lives alone Occupation: disabled Review of Systems Constitutional: no fatigue, weakness, chills, fever or night sweats Head neck: no visual changes, hearing loss Respiratory: No cough, dyspnea on exertion, shortness of breath, sputum or wheezing Cardiac: No chest pain or palpitation Abdomen: No anorexia, nausea, vomiting. No constipation or diarrhea, Musculoskeletal: No joint pain, muscle pain, back pain : No dysuria, hematuria, foamy urine, incontinence, No urinary frequency Endocrine: no polyuria, excessive thirst, heat or cold intolerance Hematological: no petechiae, easy bruising Neurologic: no confusion, weakness, No memory loss, No numbness/tingling, No paralysis, No vertigo Skin: no rash , Psychiatry: no anxiety, depression. Physical Exam Date Time Temp Pulse Resp B/P Pulse Ox O2 Delivery O2 Flow Rate FiO2 09/20/16 07:59 37.1 73 20 145/68 98 3.0 09/20/16 04:45 37.4 75 16 93/54 96 Nasal Cannula 3.0 09/20/16 04:35 37.0 75 18 97/47 96 Nasal Cannula 3.0 09/20/16 03:16 77 17 105/37 94 Nasal Cannula 3.0 09/20/16 03:13 75 09/20/16 02:20 78 17 105/34 96 Nasal Cannula 3.0 09/20/16 01:10 76 18 104/33 99 Nasal Cannula 3.0 09/20/16 00:10 72 09/19/16 23:22 99 Nasal Cannula 3.0 09/19/16 22:56 39.4 80 21 130/56 99 Nasal Cannula 3.0 GENERAL: elderly female, AAA x 3, obese, chronically ill-appearing, not in any distress. HEENT: Atraumatic, normocephalic. NECK: Supple, no JVD, no carotid bruit appreciated. ENT: No sinus tenderness MOUTH and THROAT: Moist oral mucosa, no oral ulcer or pharyngeal erythema RESPIRATORY: Normal breathing efforts, no accessory muscle use, clear to auscultation bilaterally, no wheezes or rales. CARDIOVASCULAR: S1, S2 normal, rate rhythm regular. ABDOMEN: Soft, nontender, positive bowel sound. SKIN: No skin rash EXTREMITY: B/L lower extremity edema trace edema, deformed foot with chronic ulcer NEURO: No gross focal neurological deficit, speech fluent. PSYCHIATRY: Normal mood and judgment Laboratory Results Last 24 Hours Test 09/19/16 22:55 09/19/16 23:01 09/19/16 23:05 09/19/16 23:26 White Blood Count 36.44 K/uL Red Blood Count 2.91 M/uL Hemoglobin 8.8 g/dL Hematocrit 25.0 % Mean Corpuscular Volume 85.9 fL Mean Corpuscular Hemoglobin 30.2 pg Mean Corpuscular Hemoglobin Concent 35.2 g/dl Platelet Count 234 K/uL Mean Platelet Volume 8.4 fL Neutrophils (%) (Auto) 97.1 % Lymphocytes (%) (Auto) 0.8 % Monocytes (%) (Auto) 1.3 % Eosinophils (%) (Auto) 0.0 % Basophils (%) (Auto) 0.1 % Neutrophils # (Auto) 35.40 K/uL Lymphocytes # (Auto) 0.28 K/uL Monocytes # (Auto) 0.49 K/uL Eosinophils # (Auto) 0.01 K/uL Basophils # (Auto) 0.02 K/uL RDW Standard Deviation 57.5 fL RDW Coefficient of Variation 18.5 % Immature Granulocyte % (Auto) 0.7 % Immature Granulocyte # (Auto) 0.24 K/uL Platelet Estimate NORMAL Polychromasia 1+ Basophilic Stippling 1+ Spherocytes 2+ Prothrombin Time 12.7 SECONDS Prothromb Time International Ratio 1.2 Activated Partial Thromboplast Time 30.8 SECONDS Partial Thromboplastin Ratio 1.2 Sodium Level 133 mmol/L Potassium Level 2.7 mmol/L Chloride Level 83 mmol/L Carbon Dioxide Level 37 mmol/L Anion Gap 13.0 mmol/L 15.0 mmol/L Blood Urea Nitrogen 27 mg/dl Creatinine 1.50 mg/dl Est Creatinine Clear Calc Drug Dose 37.2 ml/min Estimated GFR () 39.9 Estimated GFR (Non- 34.4 BUN/Creatinine Ratio 18.2 Random Glucose 322 mg/dl Calcium Level 8.7 mg/dl Magnesium Level 1.8 mg/dl Total Bilirubin 1.9 mg/dl Aspartate Amino Transf (AST/SGOT) 15 U/L Alanine Aminotransferase (ALT/SGPT) 13 U/L Alkaline Phosphatase 106 U/L Total Creatine Kinase 131 U/L Creatine Kinase MB 0.8 ng/ml Creatine Kinase MB Ratio 0.6 Troponin I 0.038 ng/ml Total Protein 6.5 gm/dl Albumin 2.7 gm/dl Globulin 3.8 gm/dl Albumin/Globulin Ratio 0.7 Beta-Hydroxybutyric Acid 2.03 mg/dL Thyroid Stimulating Hormone (TSH) 4.800 uIu/ml Digoxin Level 1.2 ng/ml Bedside Lactic Acid Venous 2.73 mmol/L Bedside Hemoglobin 8.2 g/dl Bedside Hematocrit 24 % Bedside Sodium 130 mEq/L Bedside Potassium 2.7 mEq/L Bedside Chloride 80 mEq/L Bedside Total CO2 39 mEq/l Bedside Blood Urea Nitrogen 27 mg/dl Bedside Creatinine 1.4 mg/dl Bedside Glucose (other) 328 mg/dl Bedside Ionized Calcium ([place]) 1.02 mmol/l Influenza Type A (RT-PCR) Neg for Influ A Influenza Type B (RT-PCR) Neg for Influ B Test 09/20/16 00:05 09/20/16 02:13 09/20/16 08:53 09/20/16 09:36 Urine Color YELLOW Urine Appearance CLEAR Urine pH 6.0 Urine Specific [place] 1.011 Urine Protein TRACE Urine Glucose (UA) NEG Urine Ketones NEG Urine Occult Blood NEG Urine Nitrite NEG Urine Bilirubin NEG Urine Urobilinogen NEG Urine Leukocyte Esterase NEG Urine WBC (Auto) 0 /hpf Urine RBC (Auto) 0-4 /hpf Urine Hyaline Casts (Auto) 1-5 /lpf Urine Epithelial Cells (Auto) 5-10 /lpf Urine Bacteria (Auto) NEG Lactic Acid Level 2.6 mmol/L 2.1 mmol/L Sodium Level 133 mmol/L Potassium Level 2.8 mmol/L Chloride Level 86 mmol/L Carbon Dioxide Level 34 mmol/L Anion Gap 13.0 mmol/L Blood Urea Nitrogen 32 mg/dl Creatinine 1.90 mg/dl Est Creatinine Clear Calc Drug Dose 30.6 ml/min Estimated GFR () 30.0 Estimated GFR (Non- 25.9 BUN/Creatinine Ratio 16.9 Random Glucose 337 mg/dl Calcium Level 8.4 mg/dl Beta-Hydroxybutyric Acid 3.08 mg/dL Free Thyroxine 1.33 ng/dl Bedside Glucose 373 mg/dl Test 09/20/16 09:53 Impression (1) AINSLEY (acute kidney injury) (2) Hypokalemia (3) Ambulatory dysfunction (4) CHF (congestive heart failure) (5) CKD (chronic kidney disease) stage 3, GFR 30-59 ml/min 71 y o F with PMH of CKD, Hypertension, Chf, ambulatory dysfunction, chronic LE edema and chronic ischemic ulcer with possible osteomyelitis. Admitted to hospital with fall at home and concern for flu and possible C diff. Found to have AINSLEY which seems to be hemodynamically mediated vs contrast nephropathy with IV contrast exposure, hypotension with variable BP, hypoalbuminemia, high does of diuretic. Baseline cr around 1.5, developed AINSLEY, cr 1.9. Currently non oliguric. Recommendations --would hold diuretics for now as pt in fact seems euvolemic or slightly volume depleted but avoid any further IV fluid. Encourage po intake --replace K with 80 meq KCL --avoid all NSAIDs --Discussed in detail with the patient and explained the current status of her kidney function --with her underlying comorbidities, she is at risk for further worsening of renal function --will monitor renal function with hemodynamic support Thank you for the consult. Will follow.
[2016-09-20 12:33] LABS: ARTERIAL BLD GAS O2 SATURATION 97.4 % (90-95); ARTERIAL BLOOD GAS BASE EXCESS 10.2 mEq/L (-9-1.8); ARTERIAL BLOOD GAS HCO3 35 mmol/L (19-24); ARTERIAL BLOOD GAS PO2 96 mm/Hg (80-95); ARTERIAL BLOOD GAS pH 7.47 (7.35-7.45); O2 ADMINISTRATION 2.5 L
[2016-09-20 12:34] LABS: ALLEN TEST POS (POS)
[2016-09-20] MEDS: ACETAMINOPHEN 325 MG TAB PO PRN (12:50)
[2016-09-20] MEDS: HYDROCODONE/ACETAMOPHEN 5/325MG TAB PO PRN ×2 (13:36→20:38)
--- NOTE | 2016-09-20 13:51 | Progress Note ---
Subjective Subjective Date of Service: Sep 20, 2016. Pt evaluation today including: conversation w/ patient, physical exam, chart review, review of studies, review of inpatient medication list Problem List Medical Problems: (1) Atrial fibrillation Status: Acute (2) Bifascicular block Status: Acute (3) Cellulitis of both lower extremities Status: Acute (4) Cellulitis of foot, left Status: Acute (5) Cellulitis of left lower leg Status: Acute (6) CHF (congestive heart failure) Status: Acute (7) Constipation Status: Acute (8) Diabetic foot ulcer Status: Acute (9) Electrolyte abnormality Status: Acute (10) Hypokalemia Status: Acute (11) Leukocytosis Status: Acute (12) Sepsis Status: Acute (13) UTI (urinary tract infection) Status: Acute Review of Systems Constitutional: No fever ENT: No hearing loss Respiratory: + dyspnea on exertion Cardiac: No chest pain Abdomen: No pain Female : No dysuria Neurologic: No memory loss Psychiatric: No depression symptoms Physical Exam Vital Signs Vital Signs Past 24 Hours: Date Time Temp Pulse Resp B/P Pulse Ox O2 Delivery O2 Flow Rate FiO2 09/20/16 12:31 36.8 65 20 145/71 99 Nasal Cannula 3.0 09/20/16 12:23 37.1 73 20 98 3.0 09/20/16 08:00 Nasal Cannula 3.0 09/20/16 07:59 37.1 73 20 145/68 98 3.0 09/20/16 04:45 37.4 75 16 93/54 96 Nasal Cannula 3.0 09/20/16 04:35 37.0 75 18 97/47 96 Nasal Cannula 3.0 09/20/16 03:16 77 17 105/37 94 Nasal Cannula 3.0 09/20/16 03:13 75 09/20/16 02:20 78 17 105/34 96 Nasal Cannula 3.0 09/20/16 01:10 76 18 104/33 99 Nasal Cannula 3.0 09/20/16 00:10 72 09/19/16 23:22 99 Nasal Cannula 3.0 09/19/16 22:56 39.4 80 21 130/56 99 Nasal Cannula 3.0 Physical Exam: General Appearance: WD/WN, no apparent distress, + obese Eyes: bilateral eyes normal inspection ENT: hearing grossly normal Neck: supple Respiratory/Chest: + crackles Cardiovascular: regular rate, rhythm Abdomen: normal bowel sounds Extremities: normal range of motion Neurologic/Psychiatric: alert Skin: normal color Medications Medications: Current Inpatient Medications Medications (Trade) Dose Ordered Sig/Hans Route Start Time Stop Time Status Last Admin Dose Admin Ioversol (Optiray 320) 100 ml UD PRN IV 09/19/16 23:30 09/23/16 23:29 Zolpidem Tartrate (Ambien Tab) 5 mg HSZ PRN PO 09/20/16 02:30 10/20/16 02:29 Acetaminophen (Tylenol Tab) 650 mg Q8H PRN PO 09/20/16 02:30 10/20/16 02:29 09/20/16 12:50 650 MG Digoxin (Lanoxin Tab) 0.125 mg DAILY@1600 PO 09/20/16 16:00 10/20/16 15:59 Diltiazem HCl (Cardizem Cd Cap) 240 mg QAM PO 09/20/16 09:00 10/20/16 08:59 09/20/16 08:39 240 MG Salmeterol Xinafoate/ Fluticasone (Advair Diskus 250/50 Inh) 1 puff BID INH 09/20/16 09:00 10/20/16 08:59 09/20/16 08:37 1 PUFF Insulin Human Isoph/Insulin Regular (novoLIN 70/30 REGULAR) 90 units BIDM SC 09/20/16 08:00 10/20/16 07:59 09/20/16 08:26 90 UNITS Levothyroxine Sodium (Synthroid Tab) 200 mcg DAILYBB PO 09/20/16 06:30 10/20/16 06:29 09/20/16 05:53 200 MCG Magnesium Oxide (Mag-Ox Tab) 400 mg BID PO 09/20/16 09:00 10/20/16 08:59 09/20/16 08:39 400 MG Nitroglycerin (Nitrostat Tab) 0.4 mg PRN UT 09/20/16 02:30 10/20/16 02:29 Potassium Chloride (Klor-Con Tab) 40 meq QID PO 09/20/16 09:00 10/20/16 08:59 09/20/16 12:25 40 MEQ Rivaroxaban (Xarelto Tab) 20 mg DAILYBD PO 09/20/16 16:00 10/20/16 15:59 Theophylline (Paul-Dur Extended Rel Tab) 600 mg HS PO 09/20/16 21:00 10/20/16 20:59 Tiotropium [place] (Spiriva Handihaler Inhaler) 1 puff DAILY INH 09/20/16 09:00 10/20/16 08:59 09/20/16 08:38 1 PUFF Multi-Ingredient Ointment (Eucerin Unscented Cr) 1 appln BID EXT 09/20/16 09:00 10/20/16 08:59 09/20/16 08:37 1 APPLN Ferrous Gluconate (Ferrous Gluconate Tab) 648 mg BIDM PO 09/20/16 08:00 10/20/16 07:59 09/20/16 08:37 648 MG Pantoprazole Sodium (Protonix Tab) 40 mg QAM PO 09/20/16 09:00 10/20/16 08:59 09/20/16 08:40 40 MG Polyethylene (Miralax Powder Packet) 17 gm DAILY PRN PO 09/20/16 02:30 10/20/16 02:29 Ondansetron HCl (Zofran Inj) 4 mg Q6H PRN IV 09/20/16 03:00 10/20/16 02:59 09/20/16 08:34 4 MG Insulin Aspart (novoLOG ASPART) SLIDING SCALE If C... ACHS SC 09/20/16 06:30 10/20/16 06:59 09/20/16 12:15 5 UNITS Glucose (Glucose 40% Gel) UD PRN PO 09/20/16 03:00 10/20/16 02:59 Glucose (Glucose Chew Tab) 1 tabs UD PRN PO 09/20/16 03:00 10/20/16 02:59 Dextrose (Dextrose 50% 50ML Syringe) 50 ml UD PRN IV 09/20/16 03:00 10/20/16 02:59 Glucagon (Glucagon Inj) 1 mg UD PRN SQ 09/20/16 03:00 10/20/16 02:59 Acetaminophen/ Hydrocodone Bitart ([place] 5/325 Tab) 1 tab Q6H PRN PO 09/20/16 03:30 10/04/16 03:29 Acetaminophen/ Hydrocodone Bitart ([place] 5/325 Tab) 2 tab Q6H PRN PO 09/20/16 03:30 10/04/16 03:29 09/20/16 13:36 2 TAB Morphine Sulfate (MoRPHine SULFATE INJ) 2 mg Q2H PRN IV 09/20/16 03:30 10/04/16 03:29 Morphine Sulfate (MoRPHine SULFATE INJ) 4 mg Q2H PRN IV 09/20/16 03:30 10/04/16 03:29 Tramadol HCl (Ultram Tab) 50 mg Q4H PRN PO 09/20/16 03:30 10/20/16 03:29 09/20/16 06:24 50 MG Tramadol HCl 100 mg 100 mg Q4H PRN PO 09/20/16 03:30 10/20/16 03:29 Daptomycin/Sodium Chloride (Cubicin IV/Nss 50ml) 61 ml @ 100 mls/hr DAILY@0000 IV 09/21/16 00:00 09/29/16 00:37 Levothyroxine Sodium (Synthroid Tab) 50 mcg DAILYBB PO 09/20/16 06:30 10/20/16 06:29 09/20/16 05:53 50 MCG Piperacillin Sod/ Tazobactam Sod 1 ea 1 ea UD PRN N/A 09/20/16 11:00 10/20/16 10:59 Piperacillin Sod/ Tazobactam Sod 4.5 gm/Dextrose 120 ml @ 30 mls/hr Q8H IV 09/20/16 16:00 10/20/16 15:59 Potassium Chloride/Prmx (Kcl 20 Meq / Wtr/Premixed Water) 100 ml @ 50 mls/hr NOW STAT IV 09/20/16 13:40 09/20/16 15:39 UNV Laboratory Data Labs: Last 24 Hours Test 09/19/16 22:55 09/19/16 23:01 09/19/16 23:05 09/19/16 23:26 White Blood Count 36.44 K/uL Red Blood Count 2.91 M/uL Hemoglobin 8.8 g/dL Hematocrit 25.0 % Mean Corpuscular Volume 85.9 fL Mean Corpuscular Hemoglobin 30.2 pg Mean Corpuscular Hemoglobin Concent 35.2 g/dl Platelet Count 234 K/uL Mean Platelet Volume 8.4 fL Neutrophils (%) (Auto) 97.1 % Lymphocytes (%) (Auto) 0.8 % Monocytes (%) (Auto) 1.3 % Eosinophils (%) (Auto) 0.0 % Basophils (%) (Auto) 0.1 % Neutrophils # (Auto) 35.40 K/uL Lymphocytes # (Auto) 0.28 K/uL Monocytes # (Auto) 0.49 K/uL Eosinophils # (Auto) 0.01 K/uL Basophils # (Auto) 0.02 K/uL RDW Standard Deviation 57.5 fL RDW Coefficient of Variation 18.5 % Immature Granulocyte % (Auto) 0.7 % Immature Granulocyte # (Auto) 0.24 K/uL Platelet Estimate NORMAL Polychromasia 1+ Basophilic Stippling 1+ Spherocytes 2+ Prothrombin Time 12.7 SECONDS Prothromb Time International Ratio 1.2 Activated Partial Thromboplast Time 30.8 SECONDS Partial Thromboplastin Ratio 1.2 Sodium Level 133 mmol/L Potassium Level 2.7 mmol/L Chloride Level 83 mmol/L Carbon Dioxide Level 37 mmol/L Anion Gap 13.0 mmol/L 15.0 mmol/L Blood Urea Nitrogen 27 mg/dl Creatinine 1.50 mg/dl Est Creatinine Clear Calc Drug Dose 37.2 ml/min Estimated GFR () 39.9 Estimated GFR (Non- 34.4 BUN/Creatinine Ratio 18.2 Random Glucose 322 mg/dl Calcium Level 8.7 mg/dl Magnesium Level 1.8 mg/dl Total Bilirubin 1.9 mg/dl Aspartate Amino Transf (AST/SGOT) 15 U/L Alanine Aminotransferase (ALT/SGPT) 13 U/L Alkaline Phosphatase 106 U/L Total Creatine Kinase 131 U/L Creatine Kinase MB 0.8 ng/ml Creatine Kinase MB Ratio 0.6 Troponin I 0.038 ng/ml Total Protein 6.5 gm/dl Albumin 2.7 gm/dl Globulin 3.8 gm/dl Albumin/Globulin Ratio 0.7 Beta-Hydroxybutyric Acid 2.03 mg/dL Thyroid Stimulating Hormone (TSH) 4.800 uIu/ml Digoxin Level 1.2 ng/ml Bedside Lactic Acid Venous 2.73 mmol/L Bedside Hemoglobin 8.2 g/dl Bedside Hematocrit 24 % Bedside Sodium 130 mEq/L Bedside Potassium 2.7 mEq/L Bedside Chloride 80 mEq/L Bedside Total CO2 39 mEq/l Bedside Blood Urea Nitrogen 27 mg/dl Bedside Creatinine 1.4 mg/dl Bedside Glucose (other) 328 mg/dl Bedside Ionized Calcium ([place]) 1.02 mmol/l Influenza Type A (RT-PCR) Neg for Influ A Influenza Type B (RT-PCR) Neg for Influ B Test 09/20/16 00:05 09/20/16 02:13 09/20/16 08:53 09/20/16 09:36 Urine Color YELLOW Urine Appearance CLEAR Urine pH 6.0 Urine Specific [place] 1.011 Urine Protein TRACE Urine Glucose (UA) NEG Urine Ketones NEG Urine Occult Blood NEG Urine Nitrite NEG Urine Bilirubin NEG Urine Urobilinogen NEG Urine Leukocyte Esterase NEG Urine WBC (Auto) 0 /hpf Urine RBC (Auto) 0-4 /hpf Urine Hyaline Casts (Auto) 1-5 /lpf Urine Epithelial Cells (Auto) 5-10 /lpf Urine Bacteria (Auto) NEG Lactic Acid Level 2.6 mmol/L 2.1 mmol/L Sodium Level 133 mmol/L Potassium Level 2.8 mmol/L Chloride Level 86 mmol/L Carbon Dioxide Level 34 mmol/L Anion Gap 13.0 mmol/L Blood Urea Nitrogen 32 mg/dl Creatinine 1.90 mg/dl Est Creatinine Clear Calc Drug Dose 30.6 ml/min Estimated GFR () 30.0 Estimated GFR (Non- 25.9 BUN/Creatinine Ratio 16.9 Random Glucose 337 mg/dl Calcium Level 8.4 mg/dl Beta-Hydroxybutyric Acid 3.08 mg/dL Free Thyroxine 1.33 ng/dl Bedside Glucose 373 mg/dl Test 09/20/16 11:11 09/20/16 12:10 Bedside Glucose 293 mg/dl Arterial Blood pH 7.47 Arterial Blood Partial Pressure CO2 49 mmHg Arterial Blood Partial Pressure O2 96 mm/Hg Arterial Blood HCO3 35 mmol/L Arterial Blood Oxygen Saturation 97.4 % Arterial Blood Base Excess 10.2 mEq/L Arterial Blood Gas Delivery 2.5 L Bernard Test POS Assessment and Plan A 71 yo female comes with Left lower extremity cellulitis in the setting of a diabetic foot infection continue medical floor. appreciated ID input, continue daptomycin 550 mg IV daily, and Zosyn 3.375 mg IV every 8 hours. consult wound care/Dr Wells lactic acid trending up, transfer to [facility] bacteremia 1/ blood cultures are positive for gram positive cocci. cont above abx and follow ID recs recheck blood cultures, lactic acid trending up, but no acidosis present on ABG , will recheck it again Anasarca/edema sec to cirrhosis, portal HTN and hypoalbuminemia, stopped Lasix due to euvolemia and worsening kidney function ARF in the setting of hypotension and contrast induced nephropathy, diarrhea causing dehydration. stop lasix, continue monitoring creatinine, nephrology consulted, recheck BMP at 3 pm Diarrhea in the setting of using antibiotics, check cdiff, stool cultures Diabetes mellitus type 2, a1c is pending, elevated glucose this am due to patient not getting pm Novolin 70/30 continue Novolin 70/30 90 units subcutaneous twice a day, given additional 30 units Glargine sq continue Accu-Cheks before meals and at bedtime with NovoLog coverage. diabetic diet, life educator consulted CAD/hypertension/CHF/hypokalemia/dysrhythmia, continue digoxin 0.125 mg by mouth every morning, Cardizem CD 240 mg by mouth every morning, mag oxide 400 mg by mouth twice a day, nitroglycerin sublingual when necessary, potassium extended release 40 mEq by mouth 4 times a day, Xarelto 20 mg by mouth daily. We'll Stop Lasix with albumin, hold Zaroxolyn 2.5 mg by mouth every Friday, Friday, Friday. recheck BMP at 3 pm Interval development of a 7 mm right lower lobe nodule and a possible right middle lobe nodule on abdomen CT 09/20/16. may need CT chest Mild endometrial thickening in a postmenopausal patient. check pelvic ultrasound. 2.8 cm right adrenal nodule which likely reflects an adenoma. needs outpatient workup Hypothyroidism, continue levothyroxine sodium at 250 g by mouth daily. COPD, continue Advair Diskus 250/50 one inhalation twice a day, Spiriva HandiHaler 1 inhalation every morning, and theophylline CR 600 mg by mouth at bedtime. GERD, pantoprazole 40 mg by mouth daily. DVT/GI proph FULL code
[2016-09-20 15:51] LABS: BUN/CREATININE RATIO 16.5 (10-20); CALCIUM 8.1 mg/dl (8.5-10.1); CREATININE 2.1 mg/dl (0.60-1.20); POTASSIUM 3.8 mmol/L (3.5-5.1)
[2016-09-20] MEDS ORDERED: RIVAROXABAN 10 MG TAB PO SCH (16:00)
[2016-09-20] MEDS ORDERED: DIGOXIN 0.125 MG TAB PO SCH (16:00)
--- NOTE | 2016-09-20 16:04 | DIAGNOSTIC IMAGING REPORT ---
ULTRASOUND OF THE PELVIS CLINICAL HISTORY: Endometrial thickening shown by CT. COMPARISON STUDY: Pelvic CT dated 09/19/2016. TECHNIQUE: Real-time, grayscale, and color flow sonography of the pelvis is performed transabdominally. Images are reviewed in the transverse and longitudinal planes. The examination is degraded by large body habitus and lack of transvaginal examination. FINDINGS: Uterus: The uterus is normal in size and echotexture, measuring 9.0 x 4.4 x 5.4 cm. Endometrium: The endometrium appears thickened and heterogeneous with cystic spaces. This measures up to 1.4 cm in thickness Ovaries: The ovaries were not visualized. Pelvis: There is no free fluid in the cul-de-sac. No concerning adnexal lesion is seen. IMPRESSION: 1. The examination is degraded by large body habitus and lack of a transvaginal assessment. 2. The endometrial stripe appears thickened and heterogeneous and contains cystic spaces. This measures up to 1.4 cm and is abnormal for age. Although this could represent endometrial hyperplasia, follow-up with gynecology is recommended for endometrial biopsy to exclude underlying neoplasm. 3. The ovaries were not visualized on this transabdominal examination. Electronically signed by: Rahul Early M.D. 09/20/2016 4:02 PM Dictated Date/Time: 09/20/2016 3:59 PM
[2016-09-20] MEDS: RIVAROXABAN TAB 15 MG TAB PO SCH (17:29)
[2016-09-20] MEDS: PIPERACILL/TAZOBAC IV 4.5 GM in DEXTROSE 5% 100ML IV SCH (17:58)
[2016-09-20 18:55] LABS: ESTIMATED AVERAGE GLUCOSE 105 mg/dl; HA1C FLAG Normal (Normal)
[2016-09-20] MEDS: THEOPHYLLINE 300MG EXTENDED REL TAB PO SCH (20:40)
[2016-09-21] VITALS (12 sets, daily range): BP systolic 114–152; BP diastolic 55–68; PULSE 64–101; TEMP 36.6–37.2; O2SAT 96–100
[2016-09-21] MEDS: PIPERACILL/TAZOBAC IV 4.5 GM in DEXTROSE 5% 100ML IV SCH ×3 (00:26→21:09)
[2016-09-21] MEDS: DAPTOmycin IV 550 MG in SODIUM CHLORIDE 0.9% 50ML 50 ML IV SCH (00:26)
[2016-09-21] MEDS: HYDROCODONE/ACETAMOPHEN 5/325MG TAB PO PRN ×3 (03:53→21:08)
[2016-09-21 05:39] LABS: HEMATOCRIT 21.8 % (37-47); MEAN CELL VOLUME 88.3 fL (80-100); MEAN CORPUSCULAR HGB CONC 33.9 g/dl (32-36); MEAN PLATELET VOLUME 8.2 fL (7.4-10.4); PLATELET COUNT 170 K/uL (130-400); RED BLOOD COUNT 2.47 M/uL (4.2-5.4); WHITE BLOOD COUNT 21.32 K/uL (4.8-10.8)
[2016-09-21] MEDS: TRAMADOL HCL 50 MG TAB PO PRN (05:41)
[2016-09-21] MEDS: LEVOTHYROXINE 50 MCG TAB PO SCH (05:42)
[2016-09-21] MEDS: LEVOTHYROXINE 200 MCG TAB PO SCH (05:42)
[2016-09-21 06:12] LABS: BASO ABS # 0.01 K/uL (0-0.2); COMPLETE YES; EOS % 0.8 %; IG% 0.4 %; LYMPH % 2.8 %; LYMPH ABS # 0.59 K/uL (1.2-3.4); MONO % 4.2 %; NEUT % 91.8 %; POLYCHROMASIA 1+
[2016-09-21 06:13] LABS: BUN/CREATININE RATIO 15.7 (10-20); CREATININE 2.6 mg/dl (0.60-1.20); MAGNESIUM 2.2 mg/dl (1.8-2.4); POTASSIUM 4.6 mmol/L (3.5-5.1)
[2016-09-21] MEDS: MAGNESIUM OXIDE 400 MG TAB PO SCH ×2 (09:07→20:57)
[2016-09-21] MEDS: PANTOprazole SOD 40 MG TAB PO SCH (09:08)
[2016-09-21] MEDS: FERROUS GLUCONATE 324 MG TAB PO SCH ×2 (09:08→16:38)
[2016-09-21] MEDS: DILTIAZEM HCL 240 MG CAPCR PO SCH (09:08)
[2016-09-21] MEDS: POTASSIUM CHLORIDE 20 MEQ TABCR PO SCH ×4 (09:09→20:49)
[2016-09-21] MEDS: FLUTICASONE/SALMETEROL 250/50 (ADVAIR) 14 PUFF/1 INHALER INH SCH ×2 (09:09→20:47)
[2016-09-21] MEDS: EUCERIN CR 120 GM JAR EXT SCH ×2 (09:10→20:53)
[2016-09-21] MEDS: TIOTROPIUM BROMIDE 5 PUFF/90 MCG INH INH SCH (09:10)
[2016-09-21] MEDS: INSULIN ASPART 100 UNITS/ML 3 ML PEN SC SCH ×4 (09:23→20:55)
[2016-09-21 11:06] LABS: FERRITIN 691.4 ng/ml (8.0-388.0)
--- NOTE | 2016-09-21 11:32 | Progress Note ---
Subjective Subjective Date of Service: Sep 21, 2016. Pt evaluation today including: conversation w/ patient, physical exam, chart review, review of studies, review of inpatient medication list Problem List Medical Problems: (1) Atrial fibrillation Status: Acute (2) Bifascicular block Status: Acute (3) Cellulitis of both lower extremities Status: Acute (4) Cellulitis of foot, left Status: Acute (5) Cellulitis of left lower leg Status: Acute (6) CHF (congestive heart failure) Status: Acute (7) Constipation Status: Acute (8) Diabetic foot ulcer Status: Acute (9) Electrolyte abnormality Status: Acute (10) Hypokalemia Status: Acute (11) Leukocytosis Status: Acute (12) Sepsis Status: Acute (13) UTI (urinary tract infection) Status: Acute Review of Systems Constitutional: No fever, No weight loss ENT: No hearing loss Respiratory: No cough Abdomen: No pain Female : No dysuria Neurologic: No memory loss Psychiatric: No depression symptoms Endo: + fatigue Physical Exam Vital Signs Vital Signs Past 24 Hours: Date Time Temp Pulse Resp B/P Pulse Ox O2 Delivery O2 Flow Rate FiO2 09/21/16 07:39 36.9 69 20 141/65 99 Nasal Cannula 2.5 09/21/16 04:00 Nasal Cannula 3.0 09/21/16 03:25 36.7 71 16 135/61 100 Nasal Cannula 2.0 09/21/16 00:02 Nasal Cannula 3.0 09/20/16 20:05 Nasal Cannula 3.0 09/20/16 20:00 60 09/20/16 19:56 36.8 80 20 123/57 97 Nasal Cannula 2.0 09/20/16 17:43 60 09/20/16 16:05 Nasal Cannula 3.0 09/20/16 15:24 36.9 58 20 105/58 100 Nasal Cannula 3.0 09/20/16 12:31 36.8 65 20 145/71 99 Nasal Cannula 3.0 09/20/16 12:23 37.1 73 20 98 3.0 Physical Exam: General Appearance: WD/WN, no apparent distress, + obese Eyes: bilateral eyes normal inspection ENT: hearing grossly normal, pharynx normal Neck: supple, no JVD Respiratory/Chest: chest non-tender, + crackles (occasional crackles ) Cardiovascular: regular rate, rhythm, no gallop Abdomen: non tender, soft Extremities: + pertinent finding (left foot has a wound with a wound vac attached) Neurologic/Psychiatric: no motor/sensory deficits, normal mood/affect Skin: normal color Medications Medications: Current Inpatient Medications Medications (Trade) Dose Ordered Sig/Hans Route Start Time Stop Time Status Last Admin Dose Admin Ioversol (Optiray 320) 100 ml UD PRN IV 09/19/16 23:30 09/23/16 23:29 Zolpidem Tartrate (Ambien Tab) 5 mg HSZ PRN PO 09/20/16 02:30 10/20/16 02:29 Acetaminophen (Tylenol Tab) 650 mg Q8H PRN PO 09/20/16 02:30 10/20/16 02:29 09/20/16 12:50 650 MG Digoxin (Lanoxin Tab) 0.125 mg DAILY@1600 PO 09/20/16 16:00 10/20/16 15:59 Future Hold 09/20/16 17:43 0.125 MG Diltiazem HCl (Cardizem Cd Cap) 240 mg QAM PO 09/20/16 09:00 10/20/16 08:59 09/21/16 09:08 240 MG Salmeterol Xinafoate/ Fluticasone (Advair Diskus 250/50 Inh) 1 puff BID INH 09/20/16 09:00 10/20/16 08:59 09/21/16 09:09 1 PUFF Levothyroxine Sodium (Synthroid Tab) 200 mcg DAILYBB PO 09/20/16 06:30 10/20/16 06:29 09/21/16 05:42 200 MCG Magnesium Oxide (Mag-Ox Tab) 400 mg BID PO 09/20/16 09:00 10/20/16 08:59 09/21/16 09:07 400 MG Nitroglycerin (Nitrostat Tab) 0.4 mg PRN UT 09/20/16 02:30 10/20/16 02:29 Potassium Chloride (Klor-Con Tab) 40 meq QID PO 09/20/16 09:00 10/20/16 08:59 09/21/16 09:09 40 MEQ Theophylline (Paul-Dur Extended Rel Tab) 600 mg HS PO 09/20/16 21:00 10/20/16 20:59 09/20/16 20:40 600 MG Tiotropium [place] (Spiriva Handihaler Inhaler) 1 puff DAILY INH 09/20/16 09:00 10/20/16 08:59 09/21/16 09:10 1 PUFF Multi-Ingredient Ointment (Eucerin Unscented Cr) 1 appln BID EXT 09/20/16 09:00 10/20/16 08:59 09/21/16 09:10 1 APPLN Ferrous Gluconate (Ferrous Gluconate Tab) 648 mg BIDM PO 09/20/16 08:00 10/20/16 07:59 09/21/16 09:08 648 MG Pantoprazole Sodium (Protonix Tab) 40 mg QAM PO 09/20/16 09:00 10/20/16 08:59 09/21/16 09:08 40 MG Polyethylene (Miralax Powder Packet) 17 gm DAILY PRN PO 09/20/16 02:30 10/20/16 02:29 Ondansetron HCl (Zofran Inj) 4 mg Q6H PRN IV 09/20/16 03:00 10/20/16 02:59 09/20/16 08:34 4 MG Insulin Aspart (novoLOG ASPART) SLIDING SCALE If C... ACHS SC 09/20/16 06:30 10/20/16 06:59 09/21/16 09:23 3 UNITS Glucose (Glucose 40% Gel) UD PRN PO 09/20/16 03:00 10/20/16 02:59 Glucose (Glucose Chew Tab) 1 tabs UD PRN PO 09/20/16 03:00 10/20/16 02:59 Dextrose (Dextrose 50% 50ML Syringe) 50 ml UD PRN IV 09/20/16 03:00 10/20/16 02:59 Glucagon (Glucagon Inj) 1 mg UD PRN SQ 09/20/16 03:00 10/20/16 02:59 Acetaminophen/ Hydrocodone Bitart ([place] 5/325 Tab) 1 tab Q6H PRN PO 09/20/16 03:30 10/04/16 03:29 Acetaminophen/ Hydrocodone Bitart ([place] 5/325 Tab) 2 tab Q6H PRN PO 09/20/16 03:30 10/04/16 03:29 09/21/16 09:19 2 TAB Morphine Sulfate (MoRPHine SULFATE INJ) 2 mg Q2H PRN IV 09/20/16 03:30 10/04/16 03:29 Morphine Sulfate (MoRPHine SULFATE INJ) 4 mg Q2H PRN IV 09/20/16 03:30 10/04/16 03:29 Tramadol HCl (Ultram Tab) 50 mg Q4H PRN PO 09/20/16 03:30 10/20/16 03:29 09/20/16 06:24 50 MG Tramadol HCl 100 mg 100 mg Q4H PRN PO 09/20/16 03:30 10/20/16 03:29 09/21/16 05:41 100 MG Daptomycin/Sodium Chloride (Cubicin IV/Nss 50ml) 61 ml @ 100 mls/hr DAILY@0000 IV 09/21/16 00:00 09/29/16 00:37 09/21/16 00:26 100 MLS/HR Levothyroxine Sodium (Synthroid Tab) 50 mcg DAILYBB PO 09/20/16 06:30 10/20/16 06:29 09/21/16 05:42 50 MCG Piperacillin Sod/ Tazobactam Sod 1 ea 1 ea UD PRN N/A 09/20/16 11:00 10/20/16 10:59 Piperacillin Sod/ Tazobactam Sod/ Dextrose (Zosyn Iv/D5 100ml) 120 ml @ 30 mls/hr Q8H IV 09/20/16 16:00 10/20/16 15:59 09/21/16 09:18 30 MLS/HR Rivaroxaban (Xarelto Tab) 15 mg DAILYBD PO 09/20/16 16:15 10/20/16 16:14 Future hold 09/20/16 17:29 15 MG Insulin Human Isoph/Insulin Regular (novoLIN 70/30 REGULAR) 70 units BIDM SC 09/21/16 16:45 10/21/16 16:44 Nystatin (Mycostatin Powder) 1 appln TID PRN EXT 09/21/16 10:30 10/21/16 10:29 Laboratory Data Labs: Last 24 Hours Test 09/20/16 12:10 09/20/16 14:53 09/20/16 16:13 09/20/16 20:05 Arterial Blood pH 7.47 Arterial Blood Partial Pressure CO2 49 mmHg Arterial Blood Partial Pressure O2 96 mm/Hg Arterial Blood HCO3 35 mmol/L Arterial Blood Oxygen Saturation 97.4 % Arterial Blood Base Excess 10.2 mEq/L Arterial Blood Gas Delivery 2.5 L Bernard Test POS Sodium Level 133 mmol/L Potassium Level 3.8 mmol/L Chloride Level 87 mmol/L Carbon Dioxide Level 35 mmol/L Anion Gap 11.0 mmol/L Blood Urea Nitrogen 35 mg/dl Creatinine 2.10 mg/dl Est Creatinine Clear Calc Drug Dose 27.7 ml/min Estimated GFR () 26.6 Estimated GFR (Non- 22.9 BUN/Creatinine Ratio 16.5 Random Glucose 194 mg/dl Estimated Average Glucose 105 mg/dl Hemoglobin A1c 5.3 % Calcium Level 8.1 mg/dl Digoxin Level 1.7 ng/ml Bedside Glucose 190 mg/dl 66 mg/dl Test 09/20/16 20:07 09/20/16 20:26 09/20/16 21:19 09/21/16 05:26 Bedside Glucose 61 mg/dl 69 mg/dl 93 mg/dl White Blood Count 21.32 K/uL Red Blood Count 2.47 M/uL Hemoglobin 7.4 g/dL Hematocrit 21.8 % Mean Corpuscular Volume 88.3 fL Mean Corpuscular Hemoglobin 30.0 pg Mean Corpuscular Hemoglobin Concent 33.9 g/dl Platelet Count 170 K/uL Mean Platelet Volume 8.2 fL Neutrophils (%) (Auto) 91.8 % Lymphocytes (%) (Auto) 2.8 % Monocytes (%) (Auto) 4.2 % Eosinophils (%) (Auto) 0.8 % Basophils (%) (Auto) 0.0 % Neutrophils # (Auto) 19.58 K/uL Lymphocytes # (Auto) 0.59 K/uL Monocytes # (Auto) 0.89 K/uL Eosinophils # (Auto) 0.16 K/uL Basophils # (Auto) 0.01 K/uL RDW Standard Deviation 61.2 fL RDW Coefficient of Variation 18.7 % Immature Granulocyte % (Auto) 0.4 % Immature Granulocyte # (Auto) 0.09 K/uL Polychromasia 1+ Basophilic Stippling 1+ Sodium Level 134 mmol/L Potassium Level 4.6 mmol/L Chloride Level 90 mmol/L Carbon Dioxide Level 35 mmol/L Anion Gap 9.0 mmol/L Blood Urea Nitrogen 41 mg/dl Creatinine 2.60 mg/dl Est Creatinine Clear Calc Drug Dose 22.4 ml/min Estimated GFR () 20.5 Estimated GFR (Non- 17.7 BUN/Creatinine Ratio 15.7 Random Glucose 140 mg/dl Calcium Level 8.0 mg/dl Magnesium Level 2.2 mg/dl Iron Level 33 mcg/dl Total Iron Binding Capacity 127 mcg/dl Transferrin 112 mg/dl Transferrin % Saturation 21 % Ferritin 691.4 ng/ml Test 09/21/16 06:03 Bedside Glucose 134 mg/dl Assessment and Plan A 71 yo female comes with Left lower extremity cellulitis in the setting of a diabetic foot infection, wound vac continue medical floor. appreciated ID input, continue daptomycin 550 mg IV daily, and Zosyn 3.375 mg IV every 8 hours. consult wound care/Dr Wells lactic acid trending up, will recheck in am bacteremia 1/2 blood cultures are positive for group G Beta strep. cont above abx and follow ID recs rechecked blood cultures, lactic acid trending up, but no acidosis present on ABG, will recheck it again in am Anasarca/edema sec to cirrhosis, portal HTN and hypoalbuminemia, patient is intravascularly dry, stopped Lasix due to euvolemia and worsening kidney function ARF, worse in the setting of hypotension and contrast induced nephropathy, diarrhea causing dehydration. stop lasix, continue monitoring creatinine, appreciated nephrology consult, recheck BMP at 6 pm anemia of chronic kidney dz/iron defeciency anemia: given 1 units PRBCs today, iron studies completed today, may benefit from erythropoietin injection, will d/ w nephrology Diarrhea in the setting of using antibiotics, check cdiff, stool cultures Diabetes mellitus type 2, a1c is pending, elevated glucose this am due to patient not getting pm Novolin 70/30 decrease Novolin 70/30 to 70 units subcutaneous twice a day due to hypoglycemia continue Accu-Cheks before meals and at bedtime with NovoLog coverage. diabetic diet, drug abuse social worker consulted CAD/hypertension/CHF/hypokalemia/dysrhythmia, continue digoxin 0.125 mg by mouth every morning, Cardizem CD 240 mg by mouth every morning, mag oxide 400 mg by mouth twice a day, nitroglycerin sublingual when necessary, potassium extended release 40 mEq by mouth 4 times a day, Xarelto 20 mg by mouth daily. hold Lasix with albumin, hold Zaroxolyn 2.5 mg by mouth every Friday,Friday, Friday. recheck BMP at 6 pm Interval development of a 7 mm right lower lobe nodule and a possible right middle lobe nodule on abdomen CT 09/20/16. [address] chest with contrast when kidneys recover to evaluate for metastatic endometrial cancer? Mild endometrial thickening in a postmenopausal patient. pelvic ultrasound: thickening endometrial lining, 1.4 cm. consult obgyn, may need biopsy outpatient 2.8 cm right adrenal nodule which likely reflects an adenoma. needs outpatient workup Hypothyroidism, continue levothyroxine sodium at 250 g by mouth daily. COPD, continue Advair Diskus 250/50 one inhalation twice a day, Spiriva HandiHaler 1 inhalation every morning, and theophylline CR 600 mg by mouth at bedtime. GERD, pantoprazole 40 mg by mouth daily. DVT/GI proph FULL code
--- NOTE | 2016-09-21 12:03 | Nephrology Progress Note ---
Nephrology Progress Note Date of Service Sep 21, 2016. Chief Complaint F/U for AINSLEY and hypokalemia. Lea Rasmussen was seen and examined this morning. She has been otherwise doing well, urine output somewhat low around 450 over last 24 hours. Renal function worsened further to creatinine 2.6, electrolyte remain acceptable. Blood pressure stable. Review of Systems A complete review of systems was performed. Pertinent positives are noted above. All other systems are negative. Vital Signs Last 8 Hrs Date Time Temp Pulse Resp B/P Pulse Ox O2 Delivery O2 Flow Rate FiO2 09/21/16 07:39 36.9 69 20 141/65 99 Nasal Cannula 2.5 09/21/16 04:00 Nasal Cannula 3.0 09/21/16 03:25 36.7 71 16 135/61 100 Nasal Cannula 2.0 I & O 24-Hour Column 09/21/16 08:00 Intake Total 1847 ml Output Total 625 ml Balance 1222 ml Last Recorded Weight Weight (Kilograms): 101.500 Physical Exam GENERAL: Elderly female, AAA x 3, pleasant, obese, chronically ill appearing, not in any distress. NECK: Supple, no JVD. RESPIRATORY: Normal breathing efforts, no accessory muscle use, clear to auscultation bilaterally, no wheezes or rales. CARDIOVASCULAR: S1, S2 normal, rate rhythm regular. EXTREMITY: Bilateral lower extremity foot deformity with chronic ulcer NEURO: speech fluent. PSYCHIATRY: Normal mood and judgment Family History Heart disease Social History Smoking Status: Never smoker Smokeless Tobacco Use: No Alcohol Use: none Drug Use: none Marital Status: Housing Status: lives alone Occupation: disabled Laboratory Results Past 24 Hours 09/21/16 05:26 Red Blood Count 2.47, Mean Corpuscular Volume 88.3, Mean Corpuscular Hemoglobin 30.0, Mean Corpuscular Hemoglobin Concent 33.9, Mean Platelet Volume 8.2, Neutrophils (%) (Auto) 91.8, Lymphocytes (%) (Auto) 2.8, Monocytes (%) (Auto) 4.2, Eosinophils (%) (Auto) 0.8, Basophils (%) (Auto) 0.0, Neutrophils # (Auto) 19.58, Lymphocytes # (Auto) 0.59, Monocytes # (Auto) 0.89, Eosinophils # (Auto) 0.16, Basophils # (Auto) 0.01 09/20/16 14:53 09/21/16 05:26 Test 09/20/16 11:11 09/20/16 12:10 09/20/16 14:53 09/20/16 16:13 Bedside Glucose 293 mg/dl (70-90) 190 mg/dl (70-90) Arterial Blood pH 7.47 (7.35-7.45) Arterial Blood Partial Pressure CO2 49 mmHg (35-46) Arterial Blood Partial Pressure O2 96 mm/Hg (80-95) Arterial Blood HCO3 35 mmol/L (19-24) Arterial Blood Oxygen Saturation 97.4 % (90-95) Arterial Blood Base Excess 10.2 mEq/L (-9-1.8) Arterial Blood Gas Delivery 2.5 L Bernard Test POS (POS) Anion Gap 11.0 mmol/L (3-11) Est Creatinine Clear Calc Drug Dose 27.7 ml/min Estimated GFR () 26.6 Estimated GFR (Non- 22.9 BUN/Creatinine Ratio 16.5 (10-20) Estimated Average Glucose 105 mg/dl Hemoglobin A1c 5.3 % (4.5-5.6) Calcium Level 8.1 mg/dl (8.5-10.1) Digoxin Level 1.7 ng/ml (0.8-2.0) Test 09/20/16 20:05 09/20/16 20:07 09/20/16 20:26 09/20/16 21:19 Bedside Glucose 66 mg/dl (70-90) 61 mg/dl (70-90) 69 mg/dl (70-90) 93 mg/dl (70-90) Test 09/21/16 05:26 09/21/16 06:03 White Blood Count 21.32 K/uL (4.8-10.8) Red Blood Count 2.47 M/uL (4.2-5.4) Hemoglobin 7.4 g/dL (12.0-16.0) Hematocrit 21.8 % (37-47) Mean Corpuscular Volume 88.3 fL (80-100) Mean Corpuscular Hemoglobin 30.0 pg (25-34) Mean Corpuscular Hemoglobin Concent 33.9 g/dl (32-36) Platelet Count 170 K/uL (130-400) Mean Platelet Volume 8.2 fL (7.4-10.4) Neutrophils (%) (Auto) 91.8 % Lymphocytes (%) (Auto) 2.8 % Monocytes (%) (Auto) 4.2 % Eosinophils (%) (Auto) 0.8 % Basophils (%) (Auto) 0.0 % Neutrophils # (Auto) 19.58 K/uL (1.4-6.5) Lymphocytes # (Auto) 0.59 K/uL (1.2-3.4) Monocytes # (Auto) 0.89 K/uL (0.11-0.59) Eosinophils # (Auto) 0.16 K/uL (0-0.5) Basophils # (Auto) 0.01 K/uL (0-0.2) RDW Standard Deviation 61.2 fL (36.4-46.3) RDW Coefficient of Variation 18.7 % (11.5-14.5) Immature Granulocyte % (Auto) 0.4 % Immature Granulocyte # (Auto) 0.09 K/uL (0.00-0.02) Polychromasia 1+ Basophilic Stippling 1+ Anion Gap 9.0 mmol/L (3-11) Est Creatinine Clear Calc Drug Dose 22.4 ml/min Estimated GFR () 20.5 Estimated GFR (Non- 17.7 BUN/Creatinine Ratio 15.7 (10-20) Calcium Level 8.0 mg/dl (8.5-10.1) Magnesium Level 2.2 mg/dl (1.8-2.4) Bedside Glucose 134 mg/dl (70-90) Allergies Coded Allergies: Duloxetine (Verified Adverse Reaction, Mild, DIZZINESS, 05/27/16) Indigotindisulfonate (Verified Adverse Reaction, Unknown, "spaced out", ) Medications Current Inpatient Medications Medications (Trade) Dose Ordered Sig/Hans Route Start Time Stop Time Status Last Admin Dose Admin Ioversol (Optiray 320) 100 ml UD PRN IV 09/19/16 23:30 09/23/16 23:29 Zolpidem Tartrate (Ambien Tab) 5 mg HSZ PRN PO 09/20/16 02:30 10/20/16 02:29 Acetaminophen (Tylenol Tab) 650 mg Q8H PRN PO 09/20/16 02:30 10/20/16 02:29 09/20/16 12:50 650 MG Digoxin (Lanoxin Tab) 0.125 mg DAILY@1600 PO 09/20/16 16:00 10/20/16 15:59 09/20/16 17:43 0.125 MG Diltiazem HCl (Cardizem Cd Cap) 240 mg QAM PO 09/20/16 09:00 10/20/16 08:59 09/21/16 09:08 240 MG Salmeterol Xinafoate/ Fluticasone (Advair Diskus 250/50 Inh) 1 puff BID INH 09/20/16 09:00 10/20/16 08:59 09/21/16 09:09 1 PUFF Levothyroxine Sodium (Synthroid Tab) 200 mcg DAILYBB PO 09/20/16 06:30 10/20/16 06:29 09/21/16 05:42 200 MCG Magnesium Oxide (Mag-Ox Tab) 400 mg BID PO 09/20/16 09:00 10/20/16 08:59 09/21/16 09:07 400 MG Nitroglycerin (Nitrostat Tab) 0.4 mg PRN UT 09/20/16 02:30 10/20/16 02:29 Potassium Chloride (Klor-Con Tab) 40 meq QID PO 09/20/16 09:00 10/20/16 08:59 09/21/16 09:09 40 MEQ Theophylline (Paul-Dur Extended Rel Tab) 600 mg HS PO 09/20/16 21:00 10/20/16 20:59 09/20/16 20:40 600 MG Tiotropium [place] (Spiriva Handihaler Inhaler) 1 puff DAILY INH 09/20/16 09:00 10/20/16 08:59 09/21/16 09:10 1 PUFF Multi-Ingredient Ointment (Eucerin Unscented Cr) 1 appln BID EXT 09/20/16 09:00 10/20/16 08:59 09/21/16 09:10 1 APPLN Ferrous Gluconate (Ferrous Gluconate Tab) 648 mg BIDM PO 09/20/16 08:00 10/20/16 07:59 09/21/16 09:08 648 MG Pantoprazole Sodium (Protonix Tab) 40 mg QAM PO 09/20/16 09:00 10/20/16 08:59 09/21/16 09:08 40 MG Polyethylene (Miralax Powder Packet) 17 gm DAILY PRN PO 09/20/16 02:30 10/20/16 02:29 Ondansetron HCl (Zofran Inj) 4 mg Q6H PRN IV 09/20/16 03:00 10/20/16 02:59 09/20/16 08:34 4 MG Insulin Aspart (novoLOG ASPART) SLIDING SCALE If C... ACHS SC 09/20/16 06:30 10/20/16 06:59 09/21/16 09:23 3 UNITS Glucose (Glucose 40% Gel) UD PRN PO 09/20/16 03:00 10/20/16 02:59 Glucose (Glucose Chew Tab) 1 tabs UD PRN PO 09/20/16 03:00 10/20/16 02:59 Dextrose (Dextrose 50% 50ML Syringe) 50 ml UD PRN IV 09/20/16 03:00 10/20/16 02:59 Glucagon (Glucagon Inj) 1 mg UD PRN SQ 09/20/16 03:00 10/20/16 02:59 Acetaminophen/ Hydrocodone Bitart ([place] 5/325 Tab) 1 tab Q6H PRN PO 09/20/16 03:30 10/04/16 03:29 Acetaminophen/ Hydrocodone Bitart ([place] 5/325 Tab) 2 tab Q6H PRN PO 09/20/16 03:30 10/04/16 03:29 09/21/16 09:19 2 TAB Morphine Sulfate (MoRPHine SULFATE INJ) 2 mg Q2H PRN IV 09/20/16 03:30 10/04/16 03:29 Morphine Sulfate (MoRPHine SULFATE INJ) 4 mg Q2H PRN IV 09/20/16 03:30 10/04/16 03:29 Tramadol HCl (Ultram Tab) 50 mg Q4H PRN PO 09/20/16 03:30 10/20/16 03:29 09/20/16 06:24 50 MG Tramadol HCl 100 mg 100 mg Q4H PRN PO 09/20/16 03:30 10/20/16 03:29 09/21/16 05:41 100 MG Daptomycin/Sodium Chloride (Cubicin IV/Nss 50ml) 61 ml @ 100 mls/hr DAILY@0000 IV 09/21/16 00:00 09/29/16 00:37 09/21/16 00:26 100 MLS/HR Levothyroxine Sodium (Synthroid Tab) 50 mcg DAILYBB PO 09/20/16 06:30 10/20/16 06:29 09/21/16 05:42 50 MCG Piperacillin Sod/ Tazobactam Sod 1 ea 1 ea UD PRN N/A 09/20/16 11:00 10/20/16 10:59 Piperacillin Sod/ Tazobactam Sod/ Dextrose (Zosyn Iv/D5 100ml) 120 ml @ 30 mls/hr Q8H IV 09/20/16 16:00 10/20/16 15:59 09/21/16 09:18 30 MLS/HR Rivaroxaban (Xarelto Tab) 15 mg DAILYBD PO 09/20/16 16:15 10/20/16 16:14 09/20/16 17:29 15 MG Insulin Human Isoph/Insulin Regular (novoLIN 70/30 REGULAR) 70 units BIDM SC 09/21/16 16:45 10/21/16 16:44 Impression (1) AINSLEY (acute kidney injury) (2) Hypokalemia (3) Ambulatory dysfunction (4) CHF (congestive heart failure) (5) CKD (chronic kidney disease) stage 3, GFR 30-59 ml/min (6) Anemia 71 y o F with PMH of CKD, Hypertension, Chf, ambulatory dysfunction, chronic LE edema and chronic ischemic ulcer with possible osteomyelitis. Admitted to hospital with fall at home and concern for flu and possible C diff. Found to have AINSLEY which seems to be hemodynamically mediated vs contrast nephropathy with IV contrast exposure, hypotension with variable BP, hypoalbuminemia, high does of diuretic. Baseline cr around 1.5, developed AINSLEY, cr 1.9. Currently non oliguric. Recommendations --start on NS at 75 ml/h for 1 L and then reassess --renal function worsened further, could be due to hemodynamically mediated ATN vs contrast nephropathy, may take few days until renal function stabilize --avoid all NSAIDs --Discussed in detail with the patient and explained the current status of her kidney function --with her underlying comorbidities, she is at risk for further worsening of renal function --will monitor renal function with hemodynamic support --check iron study --agree with PRBC 1 unit today Will follow.
[2016-09-21] MEDS: SODIUM CHLORIDE 0.9% 1000ML 1,000 ML IV SCH (12:47)
[2016-09-21] MEDS ORDERED: HEPARIN SOD 5000 UNIT/0.5 ML CARP SQ SCH (14:00)
[2016-09-21] MEDS ORDERED: NURSING VERBAL MED ORDER ONE (14:30)
[2016-09-21] MEDS ORDERED: ALPRAZOLAM 0.5 MG TAB PO PRN (14:30)
[2016-09-21] MEDS: RIVAROXABAN TAB 15 MG TAB PO SCH (16:38)
[2016-09-21] MEDS: INSULIN HUMAN 70% NPH/30% REGULAR SC SCH (16:39)
[2016-09-21 19:40] LABS: BUN/CREATININE RATIO 16.4 (10-20); CREATININE 2.7 mg/dl (0.60-1.20); POTASSIUM 5.7 mmol/L (3.5-5.1)
[2016-09-21] MEDS: THEOPHYLLINE 300MG EXTENDED REL TAB PO SCH (20:48)
[2016-09-21] MEDS: NYSTATIN POWDER 15GM BTL EXT PRN (20:58)
--- NOTE | 2016-09-21 21:15 | GYNECOLOGICAL CONSULTATION ---
DATE OF CONSULTATION: 09/21/2016 HISTORY OF PRESENT ILLNESS: The patient is a 71-year-old 1, P1-0-0-1 postmenopausal white female who had been admitted because of ongoing cellulitis of her left lower leg and multiple other medical issues. Apparently she also had a fever and sepsis on admission. We were consulted because CT scan of the abdomen and pelvis had shown thickened endometrium. A followup abdominal ultrasound also confirmed the presence of a 1.4 cm microcystic endometrial lining. The patient has been postmenopausal for at least 20 years. She does not recall the actual date. She has not experienced any abnormal discharge vaginally nor any vaginal bleeding since menopause that she can recall. 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 I checked her historical chart because she had seen Dr. Blanca Becker in the past and there is no record from 2008 and onward. She states that while she was seeing Dr. Becker, there was some thickening on ultrasound and abnormal bleeding, at which point she had what sounds like a D\\T\\C and everything was benign. She has had no other further issues of this type. She has not been back to see Dr. Becker for quite a while. She felt like that these MEDICAID BILLING CLERK visits were not necessary. She has also not had a mammogram for quite a while, and again she cannot remember the last time she has had one. Because of her oxygen-requiring status, she felt it was cumbersome to have that study done. She states that she has a poor surgical risk and is concerned for any other problems that might require a surgery. OBSTETRIC HISTORY: She was an infertility patient, her periods were irregular and sporadic. She originally saw Dr. Leonard Johnson who gave her fertility pills and was able to conceive her son. She did not pursue infertility treatment following the delivery of her son, "I was happy with 1 child." Menopause apparently was uneventful. While she was seeing Dr. Johnson, she had been told that she had early cancer, she believes of the cervix and she had a procedure to "clean out her tubes" prior to the infertility treatment; however, following this diagnosis, her Pap smears have all been within normal limits, according to the patient. I explained to the patient with the 1.4 cm thickened endometrium and probable history of endometrial polyp in the past, that this is the most likely diagnosis at this time in light of no vaginal bleeding or unusual discharge, this most likely is benign. In light also of the patient's ongoing chronic and acute medical conditions, the evaluation in our MEDICAID BILLING CLERK office can be done at a later date. I explained to Mrs. Gloria that a hysterosonogram would be done in the office using normal saline to evaluate the endometrial lining to see if it is indeed a polyp or just a thickened endometrium which would require an endometrial biopsy in the office. Hopefully, these procedures can be done in the office as she is a poor surgical risk. Occasionally, the surgical procedure is not successful because of cervical stenosis. The patient states that she would not treat any cancer nor would she want to have any surgical procedure to further pursue the thickened lining if it was not able to be done in the office. The plan would be to have her follow up with Dr. Becker if possible since this was her doctor in the past, for the hysterosonogram and evaluation of thickened lining when she has been discharged and the weather is better. If you have any other concerns about this patient, please do not hesitate to call.
[2016-09-22] MEDS: DAPTOmycin IV 550 MG in SODIUM CHLORIDE 0.9% 50ML 50 ML IV SCH (00:04)
[2016-09-22 04:30] VITALS: BP 137/66; PULSE 70; TEMP 36.9; O2SAT 100
[2016-09-22] MEDS: HYDROCODONE/ACETAMOPHEN 5/325MG TAB PO PRN ×2 (05:00→18:21)
[2016-09-22] MEDS: LEVOTHYROXINE 200 MCG TAB PO SCH (05:01)
[2016-09-22] MEDS: LEVOTHYROXINE 50 MCG TAB PO SCH (05:01)
[2016-09-22 06:12] LABS: BASO % 0.2 %; BASO ABS # 0.03 K/uL (0-0.2); EOS % 1.8 %; HEMATOCRIT 23.5 % (37-47); IG% 0.4 %; LYMPH % 4.8 %; LYMPH ABS # 0.67 K/uL (1.2-3.4); MEAN CELL VOLUME 90.4 fL (80-100); MEAN CORPUSCULAR HGB CONC 33.2 g/dl (32-36); MEAN PLATELET VOLUME 8.9 fL (7.4-10.4); MONO % 4.6 %; NEUT % 88.2 %; PLATELET COUNT 193 K/uL (130-400); WHITE BLOOD COUNT 13.99 K/uL (4.8-10.8)
[2016-09-22 06:46] LABS: BUN/CREATININE RATIO 17.9 (10-20); CREATININE 2.3 mg/dl (0.60-1.20); MAGNESIUM 2.5 mg/dl (1.8-2.4); POTASSIUM 4.4 mmol/L (3.5-5.1)
[2016-09-22 07:00] LABS: COMPLETE YES
[2016-09-22 07:31] VITALS: BP 154/64; PULSE 81; TEMP 36.8; O2SAT 98
[2016-09-22] MEDS: PIPERACILL/TAZOBAC IV 4.5 GM in DEXTROSE 5% 100ML IV SCH ×3 (08:05→23:54)
[2016-09-22] MEDS: FERROUS GLUCONATE 324 MG TAB PO SCH ×2 (08:05→17:08)
[2016-09-22] MEDS: POTASSIUM CHLORIDE 20 MEQ TABCR PO SCH (08:06)
[2016-09-22] MEDS: FLUTICASONE/SALMETEROL 250/50 (ADVAIR) 14 PUFF/1 INHALER INH SCH ×2 (08:06→20:32)
[2016-09-22] MEDS: MAGNESIUM OXIDE 400 MG TAB PO SCH (08:07)
[2016-09-22] MEDS: TIOTROPIUM BROMIDE 5 PUFF/90 MCG INH INH SCH (08:07)
[2016-09-22] MEDS: PANTOprazole SOD 40 MG TAB PO SCH (08:08)
[2016-09-22] MEDS: EUCERIN CR 120 GM JAR EXT SCH ×2 (08:08→20:33)
[2016-09-22] MEDS: DILTIAZEM HCL 240 MG CAPCR PO SCH (08:08)
[2016-09-22] MEDS: INSULIN ASPART 100 UNITS/ML 3 ML PEN SC SCH ×4 (08:17→20:29)
[2016-09-22] MEDS: INSULIN HUMAN 70% NPH/30% REGULAR SC SCH ×2 (08:18→17:13)
[2016-09-22] MEDS: SODIUM CHLORIDE 0.9% 1000ML 1,000 ML IV SCH (08:26)
[2016-09-22] MEDS ORDERED: hydrOXYzine HCL 25 MG TAB PO PRN (09:30)
[2016-09-22 11:08] VITALS: BP 138/55; PULSE 76; TEMP 36.9; O2SAT 98
--- NOTE | 2016-09-22 12:27 | Nephrology Progress Note ---
Nephrology Progress Note Date of Service Sep 22, 2016. Chief Complaint F/U for AINSLEY and hypokalemia. Lea Rasmussen was seen and examined this morning. She has been otherwise doing well, urine output improved > 1L over last 24 hours. Renal function started to improve, creatinine 2.3, electrolyte remain acceptable. Blood pressure stable. Review of Systems A complete review of systems was performed. Pertinent positives are noted above. All other systems are negative. Vital Signs Last 8 Hrs Date Time Temp Pulse Resp B/P Pulse Ox O2 Delivery O2 Flow Rate FiO2 09/22/16 07:31 36.8 81 20 154/64 98 Nasal Cannula 3.0 Humidified Oxygen 09/22/16 04:30 36.9 70 18 137/66 100 09/22/16 04:10 Nasal Cannula 3.0 I & O 24-Hour Column 09/22/16 08:00 Intake Total 2397 ml Output Total 1800 ml Balance 597 ml Last Recorded Weight Weight (Kilograms): 101.500 Physical Exam GENERAL: Elderly female, AAA x 3, pleasant, not in any distress. NECK: Supple, no JVD. RESPIRATORY: decreased BS at bases CARDIOVASCULAR: S1, S2 normal, rate rhythm regular. EXTREMITY: B/L foot deformity, trace b/l lower extremity edema with chronic ulcer NEURO: speech fluent. PSYCHIATRY: Normal mood and judgment Family History Heart disease Social History Smoking Status: Never smoker Smokeless Tobacco Use: No Alcohol Use: none Drug Use: none Marital Status: Housing Status: lives alone Occupation: disabled Laboratory Results Past 24 Hours 09/22/16 06:00 Red Blood Count 2.60, Mean Corpuscular Volume 90.4, Mean Corpuscular Hemoglobin 30.0, Mean Corpuscular Hemoglobin Concent 33.2, Mean Platelet Volume 8.9, Neutrophils (%) (Auto) 88.2, Lymphocytes (%) (Auto) 4.8, Monocytes (%) (Auto) 4.6, Eosinophils (%) (Auto) 1.8, Basophils (%) (Auto) 0.2, Neutrophils # (Auto) 12.34, Lymphocytes # (Auto) 0.67, Monocytes # (Auto) 0.65, Eosinophils # (Auto) 0.25, Basophils # (Auto) 0.03 09/21/16 18:55 09/22/16 06:00 Test 09/21/16 11:52 09/21/16 15:51 09/21/16 18:55 09/21/16 20:36 Bedside Glucose 206 mg/dl (70-90) 234 mg/dl (70-90) 206 mg/dl (70-90) Anion Gap 12.0 mmol/L (3-11) Est Creatinine Clear Calc Drug Dose 21.8 ml/min Estimated GFR () 19.6 Estimated GFR (Non- 16.9 BUN/Creatinine Ratio 16.4 (10-20) Calcium Level 8.0 mg/dl (8.5-10.1) Test 09/22/16 06:00 09/22/16 06:55 White Blood Count 13.99 K/uL (4.8-10.8) Red Blood Count 2.60 M/uL (4.2-5.4) Hemoglobin 7.8 g/dL (12.0-16.0) Hematocrit 23.5 % (37-47) Mean Corpuscular Volume 90.4 fL (80-100) Mean Corpuscular Hemoglobin 30.0 pg (25-34) Mean Corpuscular Hemoglobin Concent 33.2 g/dl (32-36) Platelet Count 193 K/uL (130-400) Mean Platelet Volume 8.9 fL (7.4-10.4) Neutrophils (%) (Auto) 88.2 % Lymphocytes (%) (Auto) 4.8 % Monocytes (%) (Auto) 4.6 % Eosinophils (%) (Auto) 1.8 % Basophils (%) (Auto) 0.2 % Neutrophils # (Auto) 12.34 K/uL (1.4-6.5) Lymphocytes # (Auto) 0.67 K/uL (1.2-3.4) Monocytes # (Auto) 0.65 K/uL (0.11-0.59) Eosinophils # (Auto) 0.25 K/uL (0-0.5) Basophils # (Auto) 0.03 K/uL (0-0.2) RDW Standard Deviation 59.5 fL (36.4-46.3) RDW Coefficient of Variation 18.0 % (11.5-14.5) Immature Granulocyte % (Auto) 0.4 % Immature Granulocyte # (Auto) 0.05 K/uL (0.00-0.02) Red Blood Cell Morphology Unremarkable Anion Gap 11.0 mmol/L (3-11) Est Creatinine Clear Calc Drug Dose 25.6 ml/min Estimated GFR () 23.8 Estimated GFR (Non- 20.5 BUN/Creatinine Ratio 17.9 (10-20) Lactic Acid Level 1.8 mmol/L (0.4-2.0) Calcium Level 8.0 mg/dl (8.5-10.1) Phosphorus Level 3.0 mg/dl (2.5-4.9) Magnesium Level 2.5 mg/dl (1.8-2.4) Bedside Glucose 141 mg/dl (70-90) Allergies Coded Allergies: Duloxetine (Verified Adverse Reaction, Mild, DIZZINESS, 05/27/16) Indigotindisulfonate (Verified Adverse Reaction, Unknown, "spaced out", ) Medications Current Inpatient Medications Medications (Trade) Dose Ordered Sig/Hans Route Start Time Stop Time Status Last Admin Dose Admin Ioversol (Optiray 320) 100 ml UD PRN IV 09/19/16 23:30 09/23/16 23:29 Zolpidem Tartrate (Ambien Tab) 5 mg HSZ PRN PO 09/20/16 02:30 10/20/16 02:29 Acetaminophen (Tylenol Tab) 650 mg Q8H PRN PO 09/20/16 02:30 10/20/16 02:29 09/20/16 12:50 650 MG Digoxin (Lanoxin Tab) 0.125 mg DAILY@1600 PO 09/20/16 16:00 10/20/16 15:59 Future Hold 09/20/16 17:43 0.125 MG Diltiazem HCl (Cardizem Cd Cap) 240 mg QAM PO 09/20/16 09:00 10/20/16 08:59 09/22/16 08:08 240 MG Salmeterol Xinafoate/ Fluticasone (Advair Diskus 250/50 Inh) 1 puff BID INH 09/20/16 09:00 10/20/16 08:59 09/22/16 08:06 1 PUFF Levothyroxine Sodium (Synthroid Tab) 200 mcg DAILYBB PO 09/20/16 06:30 10/20/16 06:29 09/22/16 05:01 200 MCG Magnesium Oxide (Mag-Ox Tab) 400 mg BID PO 09/20/16 09:00 10/20/16 08:59 09/22/16 08:07 400 MG Nitroglycerin (Nitrostat Tab) 0.4 mg PRN UT 09/20/16 02:30 10/20/16 02:29 Potassium Chloride (Klor-Con Tab) 40 meq QID PO 09/20/16 09:00 10/20/16 08:59 09/22/16 08:06 40 MEQ Theophylline (Paul-Dur Extended Rel Tab) 600 mg HS PO 09/20/16 21:00 10/20/16 20:59 09/21/16 20:48 600 MG Tiotropium [place] (Spiriva Handihaler Inhaler) 1 puff DAILY INH 09/20/16 09:00 10/20/16 08:59 09/22/16 08:07 1 PUFF Multi-Ingredient Ointment (Eucerin Unscented Cr) 1 appln BID EXT 09/20/16 09:00 10/20/16 08:59 09/22/16 08:08 1 APPLN Ferrous Gluconate (Ferrous Gluconate Tab) 648 mg BIDM PO 09/20/16 08:00 10/20/16 07:59 09/22/16 08:05 648 MG Pantoprazole Sodium (Protonix Tab) 40 mg QAM PO 09/20/16 09:00 10/20/16 08:59 09/22/16 08:08 40 MG Polyethylene (Miralax Powder Packet) 17 gm DAILY PRN PO 09/20/16 02:30 10/20/16 02:29 Ondansetron HCl (Zofran Inj) 4 mg Q6H PRN IV 09/20/16 03:00 10/20/16 02:59 09/20/16 08:34 4 MG Insulin Aspart (novoLOG ASPART) SLIDING SCALE If C... ACHS SC 09/20/16 06:30 10/20/16 06:59 09/22/16 08:17 4 UNITS Glucose (Glucose 40% Gel) UD PRN PO 09/20/16 03:00 10/20/16 02:59 Glucose (Glucose Chew Tab) 1 tabs UD PRN PO 09/20/16 03:00 10/20/16 02:59 Dextrose (Dextrose 50% 50ML Syringe) 50 ml UD PRN IV 09/20/16 03:00 10/20/16 02:59 Glucagon (Glucagon Inj) 1 mg UD PRN SQ 09/20/16 03:00 10/20/16 02:59 Acetaminophen/ Hydrocodone Bitart ([place] 5/325 Tab) 1 tab Q6H PRN PO 09/20/16 03:30 10/04/16 03:29 Acetaminophen/ Hydrocodone Bitart ([place] 5/325 Tab) 2 tab Q6H PRN PO 09/20/16 03:30 10/04/16 03:29 09/22/16 05:00 2 TAB Tramadol HCl (Ultram Tab) 50 mg Q4H PRN PO 09/20/16 03:30 10/20/16 03:29 09/20/16 06:24 50 MG Tramadol HCl 100 mg 100 mg Q4H PRN PO 09/20/16 03:30 10/20/16 03:29 09/21/16 05:41 100 MG Daptomycin/Sodium Chloride (Cubicin IV/Nss 50ml) 61 ml @ 100 mls/hr DAILY@0000 IV 09/21/16 00:00 09/29/16 00:37 09/22/16 00:04 100 MLS/HR Levothyroxine Sodium (Synthroid Tab) 50 mcg DAILYBB PO 09/20/16 06:30 10/20/16 06:29 09/22/16 05:01 50 MCG Piperacillin Sod/ Tazobactam Sod (Consult) 1 ea UD PRN N/A 09/20/16 11:00 10/20/16 10:59 Rivaroxaban (Xarelto Tab) 15 mg DAILYBD PO 09/20/16 16:15 10/20/16 16:14 Future hold 09/21/16 16:38 15 MG Insulin Human Isoph/Insulin Regular (novoLIN 70/30 REGULAR) 70 units BIDM SC 09/21/16 16:45 10/21/16 16:44 09/22/16 08:18 70 UNITS Nystatin 1 appln 1 appln TID PRN EXT 09/21/16 10:30 10/21/16 10:29 09/21/16 20:58 1 APPLN Piperacillin Sod/ Tazobactam Sod 4.5 gm/Dextrose 120 ml @ 30 mls/hr Q12H IV 09/21/16 20:00 10/21/16 19:59 09/22/16 08:05 30 MLS/HR Sodium Chloride (Nss 1000ml) 1,000 ml @ 75 mls/hr [id number] IV 09/21/16 12:00 10/21/16 11:59 09/22/16 08:26 75 MLS/HR Alprazolam (Xanax Tab) 0.5 mg Q8H PRN PO 09/21/16 14:30 10/21/16 14:29 Hydroxyzine HCl (Vistaril Tab) 25 mg Q8H PRN PO 09/22/16 09:30 10/22/16 09:29 Impression (1) AINSLEY (acute kidney injury) (2) Hypokalemia (3) Ambulatory dysfunction (4) CHF (congestive heart failure) (5) CKD (chronic kidney disease) stage 3, GFR 30-59 ml/min (6) Anemia 71 y o F with PMH of CKD, Hypertension, Chf with diastolic dysfunction ambulatory dysfunction, chronic LE edema and chronic ischemic ulcer with possible osteomyelitis. Admitted to hospital with fall at home and concern for flu and possible C diff. Developed AINSLEY with IV contrast exposure , hypotension with variable BP, hypoalbuminemia, high does of diuretic. Baseline cr around 1.5, developed AINSLEY, cr peaked to 2.6, and now started to improve. non oliguric. Has baseline chronic kidney disease with variable creatinine around 1.5. Recommendations --discontinue IV fluid --continue to monitor renal function with daily renal panel, renal function seems to be improving, expect renal function continued to improve with hemodynamic support. --suggest continue to hold diuretics for now --avoid all NSAIDs Will follow.
--- NOTE | 2016-09-22 14:11 | Progress Note ---
Subjective Subjective Date of Service: Sep 22, 2016. Pt evaluation today including: conversation w/ patient, physical exam, chart review, review of studies, review of inpatient medication list Problem List Medical Problems: (1) Atrial fibrillation Status: Acute (2) Bifascicular block Status: Acute (3) Cellulitis of both lower extremities Status: Acute (4) Cellulitis of foot, left Status: Acute (5) Cellulitis of left lower leg Status: Acute (6) CHF (congestive heart failure) Status: Acute (7) Constipation Status: Acute (8) Diabetic foot ulcer Status: Acute (9) Electrolyte abnormality Status: Acute (10) Hypokalemia Status: Acute (11) Leukocytosis Status: Acute (12) Sepsis Status: Acute (13) UTI (urinary tract infection) Status: Acute Review of Systems Constitutional: No fever, No weight loss ENT: No hearing loss Respiratory: No cough Cardiac: No chest pain Abdomen: No pain Musculoskeletal: No joint pain Neurologic: No memory loss Psychiatric: No depression symptoms Endo: No fatigue Physical Exam Vital Signs Vital Signs Past 24 Hours: Date Time Temp Pulse Resp B/P Pulse Ox O2 Delivery O2 Flow Rate FiO2 09/22/16 11:08 36.9 76 24 138/55 98 Nasal Cannula 3.0 Humidified Oxygen 09/22/16 07:31 36.8 81 20 154/64 98 Nasal Cannula 3.0 Humidified Oxygen 09/22/16 04:30 36.9 70 18 137/66 100 09/22/16 04:10 Nasal Cannula 3.0 09/22/16 00:00 Nasal Cannula 3.0 09/21/16 23:55 36.7 79 18 135/55 96 Room Air 09/21/16 20:00 Nasal Cannula 3.0 09/21/16 19:38 36.6 67 24 149/68 98 Nasal Cannula 3.0 09/21/16 16:00 Nasal Cannula 3.0 09/21/16 15:27 36.7 64 22 144/64 97 2.0 09/21/16 14:26 36.8 75 22 146/68 98 2.0 Physical Exam: General Appearance: + obese Eyes: bilateral eyes normal inspection ENT: hearing grossly normal, pharynx normal Neck: supple, no JVD Respiratory/Chest: chest non-tender, + rales (bases) Cardiovascular: no edema, no JVD Abdomen: no organomegaly Extremities: non-tender Neurologic/Psychiatric: no motor/sensory deficits Skin: normal color Medications Medications: Current Inpatient Medications Medications (Trade) Dose Ordered Sig/Hans Route Start Time Stop Time Status Last Admin Dose Admin Ioversol (Optiray 320) 100 ml UD PRN IV 09/19/16 23:30 09/23/16 23:29 Zolpidem Tartrate (Ambien Tab) 5 mg HSZ PRN PO 09/20/16 02:30 10/20/16 02:29 Acetaminophen (Tylenol Tab) 650 mg Q8H PRN PO 09/20/16 02:30 10/20/16 02:29 09/20/16 12:50 650 MG Digoxin (Lanoxin Tab) 0.125 mg DAILY@1600 PO 09/20/16 16:00 10/20/16 15:59 Future Hold 09/20/16 17:43 0.125 MG Diltiazem HCl (Cardizem Cd Cap) 240 mg QAM PO 09/20/16 09:00 10/20/16 08:59 09/22/16 08:08 240 MG Salmeterol Xinafoate/ Fluticasone (Advair Diskus 250/50 Inh) 1 puff BID INH 09/20/16 09:00 10/20/16 08:59 09/22/16 08:06 1 PUFF Levothyroxine Sodium (Synthroid Tab) 200 mcg DAILYBB PO 09/20/16 06:30 10/20/16 06:29 09/22/16 05:01 200 MCG Nitroglycerin (Nitrostat Tab) 0.4 mg PRN UT 09/20/16 02:30 10/20/16 02:29 Theophylline (Paul-Dur Extended Rel Tab) 600 mg HS PO 09/20/16 21:00 10/20/16 20:59 09/21/16 20:48 600 MG Tiotropium [place] (Spiriva Handihaler Inhaler) 1 puff DAILY INH 09/20/16 09:00 10/20/16 08:59 09/22/16 08:07 1 PUFF Multi-Ingredient Ointment (Eucerin Unscented Cr) 1 appln BID EXT 09/20/16 09:00 10/20/16 08:59 09/22/16 08:08 1 APPLN Ferrous Gluconate (Ferrous Gluconate Tab) 648 mg BIDM PO 09/20/16 08:00 10/20/16 07:59 09/22/16 08:05 648 MG Pantoprazole Sodium (Protonix Tab) 40 mg QAM PO 09/20/16 09:00 10/20/16 08:59 09/22/16 08:08 40 MG Polyethylene (Miralax Powder Packet) 17 gm DAILY PRN PO 09/20/16 02:30 10/20/16 02:29 Ondansetron HCl (Zofran Inj) 4 mg Q6H PRN IV 09/20/16 03:00 10/20/16 02:59 09/20/16 08:34 4 MG Insulin Aspart (novoLOG ASPART) SLIDING SCALE If C... ACHS SC 09/20/16 06:30 10/20/16 06:59 09/22/16 12:16 5 UNITS Glucose (Glucose 40% Gel) UD PRN PO 09/20/16 03:00 10/20/16 02:59 Glucose (Glucose Chew Tab) 1 tabs UD PRN PO 09/20/16 03:00 10/20/16 02:59 Dextrose (Dextrose 50% 50ML Syringe) 50 ml UD PRN IV 09/20/16 03:00 10/20/16 02:59 Glucagon (Glucagon Inj) 1 mg UD PRN SQ 09/20/16 03:00 10/20/16 02:59 Acetaminophen/ Hydrocodone Bitart ([place] 5/325 Tab) 1 tab Q6H PRN PO 09/20/16 03:30 10/04/16 03:29 Acetaminophen/ Hydrocodone Bitart ([place] 5/325 Tab) 2 tab Q6H PRN PO 09/20/16 03:30 10/04/16 03:29 09/22/16 05:00 2 TAB Tramadol HCl (Ultram Tab) 50 mg Q4H PRN PO 09/20/16 03:30 10/20/16 03:29 09/20/16 06:24 50 MG Tramadol HCl 100 mg 100 mg Q4H PRN PO 09/20/16 03:30 10/20/16 03:29 09/21/16 05:41 100 MG Daptomycin/Sodium Chloride (Cubicin IV/Nss 50ml) 61 ml @ 100 mls/hr DAILY@0000 IV 09/21/16 00:00 09/29/16 00:37 09/22/16 00:04 100 MLS/HR Levothyroxine Sodium (Synthroid Tab) 50 mcg DAILYBB PO 09/20/16 06:30 10/20/16 06:29 09/22/16 05:01 50 MCG Piperacillin Sod/ Tazobactam Sod (Consult) 1 ea UD PRN N/A 09/20/16 11:00 10/20/16 10:59 Rivaroxaban (Xarelto Tab) 15 mg DAILYBD PO 09/20/16 16:15 10/20/16 16:14 Future hold 09/21/16 16:38 15 MG Insulin Human Isoph/Insulin Regular (novoLIN 70/30 REGULAR) 70 units BIDM SC 09/21/16 16:45 10/21/16 16:44 09/22/16 08:18 70 UNITS Nystatin 1 appln 1 appln TID PRN EXT 09/21/16 10:30 10/21/16 10:29 09/21/16 20:58 1 APPLN Piperacillin Sod/ Tazobactam Sod/ Dextrose (Zosyn Iv/D5 100ml) 120 ml @ 30 mls/hr Q12H IV 09/21/16 20:00 10/21/16 19:59 09/22/16 08:05 30 MLS/HR Alprazolam (Xanax Tab) 0.5 mg Q8H PRN PO 09/21/16 14:30 10/21/16 14:29 Hydroxyzine HCl (Vistaril Tab) 25 mg Q8H PRN PO 09/22/16 09:30 10/22/16 09:29 Laboratory Data Labs: Last 24 Hours Test 09/21/16 15:51 09/21/16 18:55 09/21/16 20:36 09/22/16 06:00 Bedside Glucose 234 mg/dl 206 mg/dl Sodium Level 133 mmol/L 136 mmol/L Potassium Level 5.7 mmol/L 4.4 mmol/L Chloride Level 90 mmol/L 93 mmol/L Carbon Dioxide Level 31 mmol/L 32 mmol/L Anion Gap 12.0 mmol/L 11.0 mmol/L Blood Urea Nitrogen 44 mg/dl 41 mg/dl Creatinine 2.70 mg/dl 2.30 mg/dl Est Creatinine Clear Calc Drug Dose 21.8 ml/min 25.6 ml/min Estimated GFR () 19.6 23.8 Estimated GFR (Non- 16.9 20.5 BUN/Creatinine Ratio 16.4 17.9 Random Glucose 213 mg/dl 120 mg/dl Calcium Level 8.0 mg/dl 8.0 mg/dl White Blood Count 13.99 K/uL Red Blood Count 2.60 M/uL Hemoglobin 7.8 g/dL Hematocrit 23.5 % Mean Corpuscular Volume 90.4 fL Mean Corpuscular Hemoglobin 30.0 pg Mean Corpuscular Hemoglobin Concent 33.2 g/dl Platelet Count 193 K/uL Mean Platelet Volume 8.9 fL Neutrophils (%) (Auto) 88.2 % Lymphocytes (%) (Auto) 4.8 % Monocytes (%) (Auto) 4.6 % Eosinophils (%) (Auto) 1.8 % Basophils (%) (Auto) 0.2 % Neutrophils # (Auto) 12.34 K/uL Lymphocytes # (Auto) 0.67 K/uL Monocytes # (Auto) 0.65 K/uL Eosinophils # (Auto) 0.25 K/uL Basophils # (Auto) 0.03 K/uL RDW Standard Deviation 59.5 fL RDW Coefficient of Variation 18.0 % Immature Granulocyte % (Auto) 0.4 % Immature Granulocyte # (Auto) 0.05 K/uL Red Blood Cell Morphology Unremarkable Lactic Acid Level 1.8 mmol/L Phosphorus Level 3.0 mg/dl Magnesium Level 2.5 mg/dl Test 09/22/16 06:55 09/22/16 11:05 Bedside Glucose 141 mg/dl 152 mg/dl Assessment and Plan A 71 yo female comes with Left lower extremity cellulitis in the setting of a diabetic foot infection, wound vac continue medical floor. appreciated ID input, continue daptomycin 550 mg IV daily, and Zosyn 3.375 mg IV every 8 hours. consult wound care/Dr Wells lactic acid improved bacteremia 1/2 blood cultures are positive for group G Beta strep. likely a contaminant rechecked blood cultures also negative, lactic acid trended down, no acidosis present on ABG, Anasarca/edema sec to cirrhosis, portal HTN and hypoalbuminemia, patient is intravascularly dry, stopped Lasix due to euvolemia and worsening kidney function, stopped IVF ARF, improved with IVF, ATN? sec hypotension and contrast induced nephropathy, diarrhea causing dehydration. stop lasix yesterday, stopped fluids today, continue monitoring creatinine, appreciated nephrology consult, recheck BMP at 6 pm anemia of chronic kidney dz/iron defeciency anemia: given 1 units PRBCs 09/22/16 , iron studies completed, may benefit from erythropoietin injection, will d/w nephrology, patient received IVF and now hgb 7.8 from 7.4, likely delusional, check CBC at 6pm Diarrhea in the setting of using antibiotics, check cdiff, stool cultures Diabetes mellitus type 2, a1c is pending, elevated glucose this am due to patient not getting pm Novolin 70/30 decrease Novolin 70/30 to 70 units subcutaneous twice a day due to hypoglycemia continue Accu-Cheks before meals and at bedtime with NovoLog coverage. 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 hold Lasix with albumin, hold Zaroxolyn 2.5 mg by mouth every Friday,Friday, Friday. recheck BMP at 6 pm Interval development of a 7 mm right lower lobe nodule and a possible right middle lobe nodule on abdomen CT 09/20/16. may [address] CT chest with contrast when kidneys recover to evaluate for metastatic endometrial cancer? Mild endometrial thickening in a postmenopausal patient. pelvic ultrasound: thickening endometrial lining, 1.4 cm. appreciated obgyn input, may need biopsy outpatient in 1 week 2.8 cm right adrenal nodule which likely reflects an adenoma. needs outpatient workup Hypothyroidism, continue levothyroxine sodium at 250 g by mouth daily. COPD, continue Advair Diskus 250/50 one inhalation twice a day, Spiriva HandiHaler 1 inhalation every morning, and theophylline CR 600 mg by mouth at bedtime. GERD, pantoprazole 40 mg by mouth daily. DVT/GI proph FULL code
[2016-09-22 16:01] VITALS: BP 143/63; PULSE 78; TEMP 36.9; O2SAT 99
[2016-09-22] MEDS: RIVAROXABAN TAB 15 MG TAB PO SCH (17:07)
[2016-09-22 19:19] LABS: BUN/CREATININE RATIO 18.7 (10-20); CALCIUM 8.1 mg/dl (8.5-10.1); CREATININE 1.9 mg/dl (0.60-1.20)
[2016-09-22 19:20] LABS: POTASSIUM 3.4 mmol/L (3.5-5.1)
[2016-09-22 19:35] VITALS: BP 144/62; PULSE 80; TEMP 36.9; O2SAT 99
[2016-09-22] MEDS: THEOPHYLLINE 300MG EXTENDED REL TAB PO SCH (20:34)
[2016-09-23] VITALS (7 sets, daily range): BP systolic 127–186; BP diastolic 63–76; PULSE 76–101; TEMP 36.4–37.2; O2SAT 98–100; BMI 39.1
[2016-09-23] MEDS: DAPTOmycin IV 550 MG in SODIUM CHLORIDE 0.9% 50ML 50 ML IV SCH ×2 (00:13→23:52)
[2016-09-23] MEDS: LEVOTHYROXINE 200 MCG TAB PO SCH (05:58)
[2016-09-23] MEDS: LEVOTHYROXINE 50 MCG TAB PO SCH (05:58)
[2016-09-23] MEDS: INSULIN ASPART 100 UNITS/ML 3 ML PEN SC SCH ×4 (07:00→20:23)
[2016-09-23 08:16] LABS: BASO % 0.3 %; BASO ABS # 0.03 K/uL (0-0.2); EOS % 4.5 %; HEMATOCRIT 26.6 % (37-47); IG% 1.6 %; LYMPH % 7.6 %; LYMPH ABS # 0.69 K/uL (1.2-3.4); MEAN CELL VOLUME 89.9 fL (80-100); MEAN CORPUSCULAR HEMOGLOBIN 30.1 pg (25-34); MEAN CORPUSCULAR HGB CONC 33.5 g/dl (32-36); MEAN PLATELET VOLUME 8.6 fL (7.4-10.4); MONO % 5.9 %; NEUT % 80.1 %; PLATELET COUNT 212 K/uL (130-400); RED BLOOD COUNT 2.96 M/uL (4.2-5.4); WHITE BLOOD COUNT 9.03 K/uL (4.8-10.8)
[2016-09-23] MEDS: FLUTICASONE/SALMETEROL 250/50 (ADVAIR) 14 PUFF/1 INHALER INH SCH ×2 (08:18→20:46)
[2016-09-23] MEDS: NYSTATIN POWDER 15GM BTL EXT PRN (08:18)
[2016-09-23] MEDS: TIOTROPIUM BROMIDE 5 PUFF/90 MCG INH INH SCH (08:18)
[2016-09-23] MEDS: FERROUS GLUCONATE 324 MG TAB PO SCH ×2 (08:19→17:38)
[2016-09-23] MEDS: EUCERIN CR 120 GM JAR EXT SCH ×2 (08:20→20:50)
[2016-09-23] MEDS: DILTIAZEM HCL 240 MG CAPCR PO SCH (08:20)
[2016-09-23] MEDS: PANTOprazole SOD 40 MG TAB PO SCH (08:20)
[2016-09-23] MEDS: HYDROCODONE/ACETAMOPHEN 5/325MG TAB PO PRN ×3 (08:34→20:50)
[2016-09-23 08:40] LABS: BUN/CREATININE RATIO 18.1 (10-20); CALCIUM 8.5 mg/dl (8.5-10.1); CREATININE 1.5 mg/dl (0.60-1.20)
[2016-09-23] MEDS: PIPERACILL/TAZOBAC IV 4.5 GM in DEXTROSE 5% 100ML IV SCH ×3 (08:50→23:52)
[2016-09-23 09:01] LABS: COMPLETE YES
[2016-09-23] MEDS ORDERED: NURSING VERBAL MED ORDER ONE (09:15)
[2016-09-23] MEDS ORDERED: PHARMACY GLYCEMIC MGMT CONSULT PRN (09:19)
[2016-09-23] MEDS ORDERED: POTASSIUM CHLORIDE 10 MEQ TABCR PO ONE (09:30)
[2016-09-23] MEDS: INSULIN GLARGINE SOLOSTAR 100 UNITS/ML 3 ML PEN SC SCH ×2 (10:54→20:49)
--- NOTE | 2016-09-23 10:59 | Nephrology Progress Note ---
Nephrology Progress Note Date of Service Sep 23, 2016. Chief Complaint AINSLEY Subjective Valery was very tearful this morning. She is experiencing significant anxiety in the hospital. She slept well with zolpidem last night but states the medication made her feel uncomfortably weak. She denies any shortness of breath. She has no fevers or chills. Hypoglycemic episode noted yesterday evening. Review of Systems A complete review of systems was performed. Pertinent positives are noted above. All other systems are negative. Vital Signs Last 8 Hrs Date Time Temp Pulse Resp B/P Pulse Ox O2 Delivery O2 Flow Rate FiO2 09/23/16 07:57 36.8 82 20 144/75 99 Nasal Cannula 3.0 09/23/16 04:00 Nasal Cannula 3.0 09/23/16 03:15 36.4 78 18 149/76 100 Room Air I & O 24-Hour Column 09/23/16 08:00 Intake Total 2659 ml Output Total 4050 ml Balance -1391 ml Last Recorded Weight Weight (Kilograms): 103.200 Physical Exam General Appearance: no apparent distress, + obese Head: normocephalic, atraumatic Eyes: normal inspection, sclerae normal ENT: normal ENT inspection, pharynx normal Neck: supple, no JVD Respiratory/Chest: + rales (basilar right greater than left) Cardiovascular: no gallop, + irregularly irregular Abdomen/GI: non tender, soft Genitourinary - Female: + pertinent finding ([place] draining yellow urine) Extremities/Musculoskelatal: normal inspection, + pedal edema Neurologic/Psych: alert, + depressed affect Family History Heart disease Social History Smoking Status: Never smoker Smokeless Tobacco Use: No Alcohol Use: none Drug Use: none Marital Status: Housing Status: lives alone Occupation: disabled Laboratory Results Past 24 Hours 09/23/16 07:39 Red Blood Count 2.96, Mean Corpuscular Volume 89.9, Mean Corpuscular Hemoglobin 30.1, Mean Corpuscular Hemoglobin Concent 33.5, Mean Platelet Volume 8.6, Neutrophils (%) (Auto) 80.1, Lymphocytes (%) (Auto) 7.6, Monocytes (%) (Auto) 5.9, Eosinophils (%) (Auto) 4.5, Basophils (%) (Auto) 0.3, Neutrophils # (Auto) 7.23, Lymphocytes # (Auto) 0.69, Monocytes # (Auto) 0.53, Eosinophils # (Auto) 0.41, Basophils # (Auto) 0.03 09/22/16 18:35 09/23/16 07:39 Test 09/22/16 11:05 09/22/16 16:16 09/22/16 18:35 09/22/16 20:00 Bedside Glucose 152 mg/dl (70-90) 140 mg/dl (70-90) 45 mg/dl (70-90) Anion Gap 9.0 mmol/L (3-11) Est Creatinine Clear Calc Drug Dose 31.0 ml/min Estimated GFR () 30.0 Estimated GFR (Non- 25.9 BUN/Creatinine Ratio 18.7 (10-20) Calcium Level 8.1 mg/dl (8.5-10.1) Test 09/22/16 20:25 09/23/16 02:14 09/23/16 07:39 09/23/16 09:49 Bedside Glucose 110 mg/dl (70-90) 84 mg/dl (70-90) 143 mg/dl (70-90) White Blood Count 9.03 K/uL (4.8-10.8) Red Blood Count 2.96 M/uL (4.2-5.4) Hemoglobin 8.9 g/dL (12.0-16.0) Hematocrit 26.6 % (37-47) Mean Corpuscular Volume 89.9 fL (80-100) Mean Corpuscular Hemoglobin 30.1 pg (25-34) Mean Corpuscular Hemoglobin Concent 33.5 g/dl (32-36) Platelet Count 212 K/uL (130-400) Mean Platelet Volume 8.6 fL (7.4-10.4) Neutrophils (%) (Auto) 80.1 % Lymphocytes (%) (Auto) 7.6 % Monocytes (%) (Auto) 5.9 % Eosinophils (%) (Auto) 4.5 % Basophils (%) (Auto) 0.3 % Neutrophils # (Auto) 7.23 K/uL (1.4-6.5) Lymphocytes # (Auto) 0.69 K/uL (1.2-3.4) Monocytes # (Auto) 0.53 K/uL (0.11-0.59) Eosinophils # (Auto) 0.41 K/uL (0-0.5) Basophils # (Auto) 0.03 K/uL (0-0.2) RDW Standard Deviation 58.2 fL (36.4-46.3) RDW Coefficient of Variation 17.6 % (11.5-14.5) Immature Granulocyte % (Auto) 1.6 % Immature Granulocyte # (Auto) 0.14 K/uL (0.00-0.02) Red Blood Cell Morphology Unremarkable Anion Gap 10.0 mmol/L (3-11) Est Creatinine Clear Calc Drug Dose 39.7 ml/min Estimated GFR () 39.9 Estimated GFR (Non- 34.4 BUN/Creatinine Ratio 18.1 (10-20) Calcium Level 8.5 mg/dl (8.5-10.1) Albumin 2.2 gm/dl (3.4-5.0) Allergies Coded Allergies: Duloxetine (Verified Adverse Reaction, Mild, DIZZINESS, 05/27/16) Indigotindisulfonate (Verified Adverse Reaction, Unknown, "spaced out", ) Medications Current Inpatient Medications Medications (Trade) Dose Ordered Sig/Hans Route Start Time Stop Time Status Last Admin Dose Admin Ioversol (Optiray 320) 100 ml UD PRN IV 09/19/16 23:30 09/23/16 23:29 Zolpidem Tartrate (Ambien Tab) 5 mg HSZ PRN PO 09/20/16 02:30 10/20/16 02:29 Acetaminophen (Tylenol Tab) 650 mg Q8H PRN PO 09/20/16 02:30 10/20/16 02:29 09/20/16 12:50 650 MG Digoxin (Lanoxin Tab) 0.125 mg DAILY@1600 PO 09/20/16 16:00 10/20/16 15:59 Future Hold 09/20/16 17:43 0.125 MG Diltiazem HCl (Cardizem Cd Cap) 240 mg QAM PO 09/20/16 09:00 10/20/16 08:59 09/23/16 08:20 240 MG Salmeterol Xinafoate/ Fluticasone (Advair Diskus 250/50 Inh) 1 puff BID INH 09/20/16 09:00 10/20/16 08:59 09/23/16 08:18 1 PUFF Levothyroxine Sodium (Synthroid Tab) 200 mcg DAILYBB PO 09/20/16 06:30 10/20/16 06:29 09/23/16 05:58 200 MCG Nitroglycerin (Nitrostat Tab) 0.4 mg PRN UT 09/20/16 02:30 10/20/16 02:29 Theophylline (Paul-Dur Extended Rel Tab) 600 mg HS PO 09/20/16 21:00 10/20/16 20:59 09/22/16 20:34 600 MG Tiotropium [place] (Spiriva Handihaler Inhaler) 1 puff DAILY INH 09/20/16 09:00 10/20/16 08:59 09/23/16 08:18 1 PUFF Multi-Ingredient Ointment (Eucerin Unscented Cr) 1 appln BID EXT 09/20/16 09:00 10/20/16 08:59 09/23/16 08:20 1 APPLN Ferrous Gluconate (Ferrous Gluconate Tab) 648 mg BIDM PO 09/20/16 08:00 10/20/16 07:59 09/23/16 08:19 648 MG Pantoprazole Sodium (Protonix Tab) 40 mg QAM PO 09/20/16 09:00 10/20/16 08:59 09/23/16 08:20 40 MG Polyethylene (Miralax Powder Packet) 17 gm DAILY PRN PO 09/20/16 02:30 10/20/16 02:29 Ondansetron HCl (Zofran Inj) 4 mg Q6H PRN IV 09/20/16 03:00 10/20/16 02:59 09/20/16 08:34 4 MG Insulin Aspart (novoLOG ASPART) SLIDING SCALE If C... ACHS SC 09/20/16 06:30 10/20/16 06:59 09/22/16 17:12 2 UNITS Glucose (Glucose 40% Gel) UD PRN PO 09/20/16 03:00 10/20/16 02:59 Glucose (Glucose Chew Tab) 1 tabs UD PRN PO 09/20/16 03:00 10/20/16 02:59 Dextrose (Dextrose 50% 50ML Syringe) 50 ml UD PRN IV 09/20/16 03:00 10/20/16 02:59 09/22/16 20:12 50 ML Glucagon (Glucagon Inj) 1 mg UD PRN SQ 09/20/16 03:00 10/20/16 02:59 Acetaminophen/ Hydrocodone Bitart ([place] 5/325 Tab) 1 tab Q6H PRN PO 09/20/16 03:30 10/04/16 03:29 Acetaminophen/ Hydrocodone Bitart ([place] 5/325 Tab) 2 tab Q6H PRN PO 09/20/16 03:30 10/04/16 03:29 09/23/16 08:34 2 TAB Tramadol HCl (Ultram Tab) 50 mg Q4H PRN PO 09/20/16 03:30 10/20/16 03:29 09/20/16 06:24 50 MG Tramadol HCl 100 mg 100 mg Q4H PRN PO 09/20/16 03:30 10/20/16 03:29 09/21/16 05:41 100 MG Daptomycin/Sodium Chloride (Cubicin IV/Nss 50ml) 61 ml @ 100 mls/hr DAILY@0000 IV 09/21/16 00:00 09/29/16 00:37 09/23/16 00:13 100 MLS/HR Levothyroxine Sodium (Synthroid Tab) 50 mcg DAILYBB PO 09/20/16 06:30 10/20/16 06:29 09/23/16 05:58 50 MCG Piperacillin Sod/ Tazobactam Sod (Consult) 1 ea UD PRN N/A 09/20/16 11:00 10/20/16 10:59 Rivaroxaban (Xarelto Tab) 15 mg DAILYBD PO 09/20/16 16:15 10/20/16 16:14 Future hold 09/22/16 17:07 15 MG Insulin Human Isoph/Insulin Regular (novoLIN 70/30 REGULAR) 70 units BIDM SC 09/21/16 16:45 10/21/16 16:44 Future Hold 09/22/16 17:13 70 UNITS Nystatin (Mycostatin Powder) 1 appln TID PRN EXT 09/21/16 10:30 10/21/16 10:29 09/23/16 08:18 1 APPLN Alprazolam (Xanax Tab) 0.5 mg Q8H PRN PO 09/21/16 14:30 10/21/16 14:29 Hydroxyzine HCl 25 mg 25 mg Q8H PRN PO 09/22/16 09:30 10/22/16 09:29 09/22/16 20:35 25 MG Piperacillin Sod/ Tazobactam Sod/ Dextrose (Zosyn Iv/D5 100ml) 120 ml @ 30 mls/hr Q8H IV 09/22/16 16:00 10/22/16 15:59 09/23/16 08:50 30 MLS/HR Miscellaneous Information (Consult Glycemic Management Pharmacy) 1 ea UD PRN N/A 09/23/16 09:19 10/23/16 09:18 Insulin Glargine (Lantus Solostar Pen) 50 unit BID SC 09/23/16 10:27 10/23/16 10:26 Impression (1) AINSLEY (acute kidney injury) (2) Hypokalemia (3) Ambulatory dysfunction (4) CHF (congestive heart failure) (5) CKD (chronic kidney disease) stage 3, GFR 30-59 ml/min (6) Anemia Valery is a 71 year-old female with CKD, Hypertension, CHF with diastolic dysfunction, ambulatory dysfunction, chronic LE edema and chronic ischemic ulcer with possible osteomyelitis. Admitted to hospital with fall at home and viral syndrome. Developed AINSLEY with IV contrast exposure, hypotension with variable BP, hypoalbuminemia, high does of diuretic. Baseline creatinine around 1.5 mg/dL. Non oliguric. Recommendations -- IVF discontinued. Maintain even fluid balance -- Document I/O's -- Replete hypokalemia, additional 20 mEq BID ordered this morning -- Check metabolic profile in the AM with repeat magnesium level -- May consider restarting diuretics as needed to maintain even to slightly negative fluid balance
--- NOTE | 2016-09-23 11:01 | Progress Note ---
Subjective Date of Service: Sep 23, 2016. Subjective Pt evaluation today including: conversation w/ patient, physical exam, chart review, lab review, review of studies Problem List Medical Problems: (1) Atrial fibrillation Status: Acute (2) Bifascicular block Status: Acute (3) Cellulitis of both lower extremities Status: Acute (4) Cellulitis of foot, left Status: Acute (5) Cellulitis of left lower leg Status: Acute (6) CHF (congestive heart failure) Status: Acute (7) Constipation Status: Acute (8) Diabetic foot ulcer Status: Acute (9) Electrolyte abnormality Status: Acute (10) Hypokalemia Status: Acute (11) Leukocytosis Status: Acute (12) Sepsis Status: Acute (13) UTI (urinary tract infection) Status: Acute Review of Systems Constitutional: No chills, No fever Eyes: No worsening of vision ENT: No hearing loss Respiratory: No cough, No shortness of breath, No sputum Cardiac: No chest pain Abdomen: No pain, No vomiting Musculoskeletal: No joint pain, No muscle pain Female : No dysuria, No hematuria Neurologic: No paralysis, No weakness Psychiatric: No depression symptoms Heme: No abnormal bleeding/bruising Skin: No rash Objective Vital Signs Date Time Temp Pulse Resp B/P Pulse Ox O2 Delivery O2 Flow Rate FiO2 09/23/16 07:57 36.8 82 20 144/75 99 Nasal Cannula 3.0 09/23/16 04:00 Nasal Cannula 3.0 09/23/16 03:15 36.4 78 18 149/76 100 Room Air 09/23/16 00:50 36.4 86 21 148/63 100 Nasal Cannula 3.0 09/23/16 00:01 Nasal Cannula 3.0 09/22/16 20:00 Nasal Cannula 3.0 09/22/16 19:35 36.9 80 20 144/62 99 Nasal Cannula 3.0 09/22/16 16:01 36.9 78 24 143/63 99 Nasal Cannula 3.0 09/22/16 15:20 Nasal Cannula 3.0 09/22/16 12:05 Nasal Cannula 3.0 09/22/16 11:08 36.9 76 24 138/55 98 Nasal Cannula 3.0 Humidified Oxygen Physical Exam General Appearance: no apparent distress Eyes: normal inspection, PERRL, EOMI ENT: normal ENT inspection, hearing grossly normal Neck: supple Respiratory/Chest: lungs clear, normal breath sounds, no respiratory distress, no accessory muscle use Cardiovascular: regular rate, rhythm, no edema, no gallop, no JVD, no murmur Abdomen: non tender, soft, no organomegaly Extremities: normal range of motion, + pertinent finding (deformity in both feet, wound vac in left foot) Neurologic/Psychiatric: electronic health records specialist II-XII nml as tested, no motor/sensory deficits, alert, normal mood/affect, oriented x 3 Skin: normal color, warm/dry, no rash Laboratory Results Last 24 Hours Test 09/22/16 11:05 09/22/16 16:16 09/22/16 18:35 09/22/16 20:00 Bedside Glucose 152 mg/dl 140 mg/dl 45 mg/dl Sodium Level 137 mmol/L Potassium Level 3.4 mmol/L Chloride Level 97 mmol/L Carbon Dioxide Level 31 mmol/L Anion Gap 9.0 mmol/L Blood Urea Nitrogen 36 mg/dl Creatinine 1.90 mg/dl Est Creatinine Clear Calc Drug Dose 31.0 ml/min Estimated GFR () 30.0 Estimated GFR (Non- 25.9 BUN/Creatinine Ratio 18.7 Random Glucose 70 mg/dl Calcium Level 8.1 mg/dl Test 09/22/16 20:25 09/23/16 02:14 09/23/16 07:39 09/23/16 09:49 Bedside Glucose 110 mg/dl 84 mg/dl 143 mg/dl White Blood Count 9.03 K/uL Red Blood Count 2.96 M/uL Hemoglobin 8.9 g/dL Hematocrit 26.6 % Mean Corpuscular Volume 89.9 fL Mean Corpuscular Hemoglobin 30.1 pg Mean Corpuscular Hemoglobin Concent 33.5 g/dl Platelet Count 212 K/uL Mean Platelet Volume 8.6 fL Neutrophils (%) (Auto) 80.1 % Lymphocytes (%) (Auto) 7.6 % Monocytes (%) (Auto) 5.9 % Eosinophils (%) (Auto) 4.5 % Basophils (%) (Auto) 0.3 % Neutrophils # (Auto) 7.23 K/uL Lymphocytes # (Auto) 0.69 K/uL Monocytes # (Auto) 0.53 K/uL Eosinophils # (Auto) 0.41 K/uL Basophils # (Auto) 0.03 K/uL RDW Standard Deviation 58.2 fL RDW Coefficient of Variation 17.6 % Immature Granulocyte % (Auto) 1.6 % Immature Granulocyte # (Auto) 0.14 K/uL Red Blood Cell Morphology Unremarkable Sodium Level 139 mmol/L Potassium Level 3.0 mmol/L Chloride Level 99 mmol/L Carbon Dioxide Level 30 mmol/L Anion Gap 10.0 mmol/L Blood Urea Nitrogen 27 mg/dl Creatinine 1.50 mg/dl Est Creatinine Clear Calc Drug Dose 39.7 ml/min Estimated GFR () 39.9 Estimated GFR (Non- 34.4 BUN/Creatinine Ratio 18.1 Random Glucose 54 mg/dl Calcium Level 8.5 mg/dl Albumin 2.2 gm/dl Assessment and Plan Left foot diabetic cellulitis/abscess S/P I&D and wound VAC Continue wound care continue Abx daptomycin 550 mg IV daily, and Zosyn 4.5 G IV every 8 hours. (A culture of ulcer grew group B strep and MRSA. She was discharged on a 4-week course of oral doxycycline and Augmentin from 08/14) Diabetes mellitus--continue Novolin 70/30 twice a day, Had multiple episodes of hypoglycemia will consult pharmacy to adjust insulin dose. CAD/hypertension/CHF/anasarca currently appears to be at base lone diuretics are on hold as well as IVF Hypothyroidism--continue levothyroxine sodium at 250 g by mouth daily. TSH was 4.8 COPD--continue Advair Diskus 250/50 one inhalation twice a day, Spiriva HandiHaler 1 inhalation every morning, and theophylline CR 600 mg by mouth at bedtime. GERD--change omeprazole 20 mg by mouth daily to pantoprazole 40 mg by mouth daily. AINSLEY/CKD nephrology consult appreciated Hold IVF Hold nephrotoxics and diuretics monitor renal function 1.4 cm thickened endometrium and probable history of endometrial polyp in the past General Assistant consult appreciated The plan would be to have her follow up with Dr. Becker ( her doctor in the past), for the hysterosonogram upon discharged Suspected liver cirrhosis with manifestations of portal hypertension/ splenomegaly and varices formation on CT abdomen 7 mm right lower lobe nodule and a possible right and middle lobe nodule which can be followed up as an out patient 3. Mild endometrial thickening in a postmenopausal patient. Correlation with postmenopausal bleeding is recommended as well as follow-up pelvic ultrasound. Mild aortoiliac and inguinal lymphadenopathy. This could be reactive given lower extremity cellulitis although a neoplastic process could appear similar. A short-term follow-up CT of the abdomen and pelvis in 2 months is recommended. 2.8 cm right adrenal nodule which likely reflects an adenoma Afib currently rate controlled continue xarelto
--- NOTE | 2016-09-23 14:20 | Pharmacy Progress Note ---
Glycemic Control Intl Consult Date of Service Sep 23, 2016. Scope Glycemic Pharmacist consulted by Dr Wild on 09/23/16 for glycemic control and to write orders per [facility] inpatient glycemic control protocol Objective Weight (Kilograms): 103.200 Accuchecks BSG (last 24hrs): Test 09/22/16 16:16 09/22/16 18:35 09/22/16 20:00 09/22/16 20:25 Bedside Glucose 140 mg/dl (70-90) 45 mg/dl (70-90) 110 mg/dl (70-90) Random Glucose 70 mg/dl (70-99) Test 09/23/16 02:14 09/23/16 07:39 09/23/16 09:49 09/23/16 11:22 Bedside Glucose 84 mg/dl (70-90) 143 mg/dl (70-90) 135 mg/dl (70-90) Random Glucose 54 mg/dl (70-99) Laboratory Data (last 24hrs) Test 09/22/16 18:35 09/23/16 07:39 Anion Gap 9.0 mmol/L 10.0 mmol/L BUN/Creatinine Ratio 18.7 18.1 Blood Urea Nitrogen 36 mg/dl 27 mg/dl Creatinine 1.90 mg/dl 1.50 mg/dl Potassium Level 3.4 mmol/L 3.0 mmol/L Sodium Level 137 mmol/L 139 mmol/L White Blood Count 9.03 K/uL Red Blood Count 2.96 M/uL Hemoglobin 8.9 g/dL Hematocrit 26.6 % Mean Corpuscular Volume 89.9 fL Mean Corpuscular Hemoglobin 30.1 pg Mean Corpuscular Hemoglobin Concent 33.5 g/dl Platelet Count 212 K/uL Mean Platelet Volume 8.6 fL Neutrophils (%) (Auto) 80.1 % Lymphocytes (%) (Auto) 7.6 % Monocytes (%) (Auto) 5.9 % Eosinophils (%) (Auto) 4.5 % Basophils (%) (Auto) 0.3 % Neutrophils # (Auto) 7.23 K/uL Lymphocytes # (Auto) 0.69 K/uL Monocytes # (Auto) 0.53 K/uL Eosinophils # (Auto) 0.41 K/uL Basophils # (Auto) 0.03 K/uL HbA1c Test 09/20/16 14:53 Hemoglobin A1c 5.3 % (4.5-5.6) Recent Pertinent Medications Outpatient Anti-diabetic Regimen: * Novolin 70%/30% 90 units bid * A1c = 5.3 % 09/20/16 The patient is currently receiving: * Basal insulin: Novolin 70%/30% 70 units every 12 hours * Correctional Insulin: Novolog Correction per scale ACHS Goal Range: Low 100 mg/dL - High 150 mg/dL Correction Factor: 30 mg/dL/unit * Prandial insulin: Per carb ratio of 1 unit per 10 grams CHO consumed Risk Factors for Insulin Resistance: * Steroids: no * Infection: diabetic foot infection, on Zosyn and daptomycin * Pressors: no * IVF: Zosyn mixed in D5W * Recent Surgery: no * Diet: type 2 diabetic AHA, variable appetite * Mechanical Ventilation: no Assessment & Plan ASSESSMENT: * ADA & AACE recommend a goal blood sugar range 140-180 mg/dl for the majority of critically ill & non-critically ill patients. However, more stringent targets may be selected in individual cases. * 71 yo type 2 diabetic admitted with cellulitis. A1c of 5.3 indicates too- tight glycemic control recently with some hypoglycemic episodes. On admission she was started on home dose of Novolin 70/30 (fixed dose basal and carb coverage) with additional Novolog correction and carb factor. She received 233 units of insulin on 09/20 with hypoglycemic episode. * Novolin 70/30 was decreased to 70 units bid with same Novolog. She received 86 units of insulin on 09/21, 151 units on 09/22 with hypoglycemic episode yesterday evening and this morning, likely due to some accumulation with poor renal function and inadequate po intake. Insulins held until BSG's rebounded, then switched to Lantus lower dose and slightly tighter Novolog, for greater flexibility. Will reassess in am. PLAN FOR INPATIENT GLYCEMIC CONTROL: Holding Novolin 70%/30% * Changing to Lantus 50 units SQ BID, give 1/2 dose if BSG is less than 120 * Changing correction factor to 20 mg/dl/unit * Changing carb ratio to 1 unit per 7 grams CHO consumed * Changing goal range to Low 120 mg/dL - High 160 mg/dL, higher to decrease risk of hypoglycemia * Please note that the plan above was derived based on current level of insulin resistance and hospital stress. These recommendations are appropriate for inpatient admission only. Plan of care upon discharge will need to be reassessed to avoid potential outpatient hypo/hyperglycemia. Thank you.
[2016-09-23] MEDS: RIVAROXABAN TAB 15 MG TAB PO SCH (17:38)
[2016-09-23] MEDS: POTASSIUM CHLORIDE 20 MEQ TABCR PO SCH (20:47)
[2016-09-23] MEDS: THEOPHYLLINE 300MG EXTENDED REL TAB PO SCH (20:47)
[2016-09-24] VITALS (11 sets, daily range): BP systolic 119–153; BP diastolic 55–76; PULSE 55–84; TEMP 36.7–37.2; O2SAT 97–99
[2016-09-24] MEDS: ACETAMINOPHEN 325 MG TAB PO PRN (00:05)
[2016-09-24] MEDS: HYDROCODONE/ACETAMOPHEN 5/325MG TAB PO PRN ×2 (02:33→22:44)
[2016-09-24] MEDS: LEVOTHYROXINE 50 MCG TAB PO SCH (04:51)
[2016-09-24] MEDS: LEVOTHYROXINE 200 MCG TAB PO SCH (04:51)
[2016-09-24] MEDS: INSULIN ASPART 100 UNITS/ML 3 ML PEN SC SCH ×4 (08:24→21:00)
[2016-09-24] MEDS: PIPERACILL/TAZOBAC IV 4.5 GM in DEXTROSE 5% 100ML IV SCH ×2 (08:30→16:29)
[2016-09-24] MEDS: TRAMADOL HCL 50 MG TAB PO PRN (08:34)
[2016-09-24] MEDS: FLUTICASONE/SALMETEROL 250/50 (ADVAIR) 14 PUFF/1 INHALER INH SCH ×2 (08:35→22:36)
[2016-09-24] MEDS: FERROUS GLUCONATE 324 MG TAB PO SCH ×2 (08:35→16:29)
[2016-09-24] MEDS: TIOTROPIUM BROMIDE 5 PUFF/90 MCG INH INH SCH (08:36)
[2016-09-24] MEDS: DILTIAZEM HCL 240 MG CAPCR PO SCH (08:36)
[2016-09-24] MEDS: EUCERIN CR 120 GM JAR EXT SCH ×2 (08:36→20:00)
[2016-09-24] MEDS: POTASSIUM CHLORIDE 20 MEQ TABCR PO SCH ×2 (08:36→22:37)
[2016-09-24] MEDS: PANTOprazole SOD 40 MG TAB PO SCH (08:37)
[2016-09-24 08:38] LABS: BASO % 0.5 %; BASO ABS # 0.05 K/uL (0-0.2); EOS % 3.6 %; HEMATOCRIT 25.6 % (37-47); IG% 3.6 %; LYMPH % 6.6 %; LYMPH ABS # 0.72 K/uL (1.2-3.4); MEAN CELL VOLUME 89.8 fL (80-100); MEAN CORPUSCULAR HEMOGLOBIN 29.8 pg (25-34); MEAN CORPUSCULAR HGB CONC 33.2 g/dl (32-36); MEAN PLATELET VOLUME 8.3 fL (7.4-10.4); MONO % 7.9 %; NEUT % 77.8 %; PLATELET COUNT 204 K/uL (130-400); RED BLOOD COUNT 2.85 M/uL (4.2-5.4); WHITE BLOOD COUNT 10.98 K/uL (4.8-10.8)
[2016-09-24] MEDS ORDERED: INSULIN GLARGINE SOLOSTAR 100 UNITS/ML 3 ML PEN SC SCH ×2 (09:00→21:00)
[2016-09-24 09:01] LABS: ANISOCYTOSIS PRESENT; COMPLETE YES
[2016-09-24 09:15] LABS: CALCIUM 8.7 mg/dl (8.5-10.1); CREATININE 1.4 mg/dl (0.60-1.20); MAGNESIUM 2.4 mg/dl (1.8-2.4); POTASSIUM 3.3 mmol/L (3.5-5.1)
[2016-09-24 09:22] LABS: ALB/GLOB RATIO 0.6 (0.9-2); PHOSPHORUS 1.9 mg/dl (2.5-4.9)
[2016-09-24] MEDS ORDERED: POTASSIUM PHOS 3 MMOL/1 ML INFUSION IV STA (10:07)
--- NOTE | 2016-09-24 10:07 | Nephrology Progress Note ---
Nephrology Progress Note Date of Service Sep 24, 2016. Chief Complaint AINSLEY Subjective No acute events overnight. Denies shortness of breath. No fevers or chills. Appetite good. Denies significant fluid retention. Review of Systems A complete review of systems was performed. Pertinent positives are noted above. All other systems are negative. Vital Signs Last 8 Hrs Date Time Temp Pulse Resp B/P Pulse Ox O2 Delivery O2 Flow Rate FiO2 09/24/16 08:00 99 Nasal Cannula 3.0 Humidified Oxygen 09/24/16 07:15 36.9 80 20 134/67 99 Nasal Cannula 3.0 Humidified Oxygen 09/24/16 04:00 Nasal Cannula 3.0 09/24/16 03:56 36.9 83 18 135/65 99 3.0 I & O 24-Hour Column 09/24/16 08:00 Intake Total 1357 ml Output Total 4400 ml Balance -3043 ml Last Recorded Weight Weight (Kilograms): 102.300 Physical Exam General Appearance: no apparent distress, + obese Head: normocephalic, atraumatic Eyes: normal inspection, sclerae normal ENT: normal ENT inspection, pharynx normal Neck: supple, + JVD Respiratory/Chest: lungs clear, + rales Cardiovascular: regular rate, rhythm, no gallop Abdomen/GI: non tender, soft Extremities/Musculoskelatal: normal inspection, + pedal edema, + pertinent finding Neurologic/Psych: alert, oriented x 3 Family History Heart disease Social History Smoking Status: Never smoker Smokeless Tobacco Use: No Alcohol Use: none Drug Use: none Marital Status: Housing Status: lives alone Occupation: disabled Laboratory Results Past 24 Hours 09/24/16 08:11 Red Blood Count 2.85, Mean Corpuscular Volume 89.8, Mean Corpuscular Hemoglobin 29.8, Mean Corpuscular Hemoglobin Concent 33.2, Mean Platelet Volume 8.3, Neutrophils (%) (Auto) 77.8, Lymphocytes (%) (Auto) 6.6, Monocytes (%) (Auto) 7.9, Eosinophils (%) (Auto) 3.6, Basophils (%) (Auto) 0.5, Neutrophils # (Auto) 8.55, Lymphocytes # (Auto) 0.72, Monocytes # (Auto) 0.87, Eosinophils # (Auto) 0.40, Basophils # (Auto) 0.05 09/24/16 08:11 Test 09/23/16 11:22 09/23/16 16:16 09/23/16 20:13 09/24/16 07:02 Bedside Glucose 135 mg/dl (70-90) 99 mg/dl (70-90) 97 mg/dl (70-90) 122 mg/dl (70-90) Test 09/24/16 08:11 White Blood Count 10.98 K/uL (4.8-10.8) Red Blood Count 2.85 M/uL (4.2-5.4) Hemoglobin 8.5 g/dL (12.0-16.0) Hematocrit 25.6 % (37-47) Mean Corpuscular Volume 89.8 fL (80-100) Mean Corpuscular Hemoglobin 29.8 pg (25-34) Mean Corpuscular Hemoglobin Concent 33.2 g/dl (32-36) Platelet Count 204 K/uL (130-400) Mean Platelet Volume 8.3 fL (7.4-10.4) Neutrophils (%) (Auto) 77.8 % Lymphocytes (%) (Auto) 6.6 % Monocytes (%) (Auto) 7.9 % Eosinophils (%) (Auto) 3.6 % Basophils (%) (Auto) 0.5 % Neutrophils # (Auto) 8.55 K/uL (1.4-6.5) Lymphocytes # (Auto) 0.72 K/uL (1.2-3.4) Monocytes # (Auto) 0.87 K/uL (0.11-0.59) Eosinophils # (Auto) 0.40 K/uL (0-0.5) Basophils # (Auto) 0.05 K/uL (0-0.2) RDW Standard Deviation 58.1 fL (36.4-46.3) RDW Coefficient of Variation 17.6 % (11.5-14.5) Immature Granulocyte % (Auto) 3.6 % Immature Granulocyte # (Auto) 0.39 K/uL (0.00-0.02) Nucleated RBC Absolute Count (auto) 0.02 K/uL (0-0) Nucleated Red Blood Cells % 0.2 % Basophilic Stippling 1+ Anisocytosis PRESENT Anion Gap 11.0 mmol/L (3-11) Est Creatinine Clear Calc Drug Dose 42.3 ml/min Estimated GFR () 43.4 Estimated GFR (Non- 37.4 BUN/Creatinine Ratio 16.0 (10-20) Calcium Level 8.7 mg/dl (8.5-10.1) Phosphorus Level 1.9 mg/dl (2.5-4.9) Magnesium Level 2.4 mg/dl (1.8-2.4) Total Bilirubin 0.7 mg/dl (0.2-1) Aspartate Amino Transf (AST/SGOT) 13 U/L (15-37) Alanine Aminotransferase (ALT/SGPT) 10 U/L (12-78) Alkaline Phosphatase 134 U/L (45-117) Total Protein 6.1 gm/dl (6.4-8.2) Albumin 2.3 gm/dl (3.4-5.0) Globulin 3.8 gm/dl (2.5-4.0) Albumin/Globulin Ratio 0.6 (0.9-2) Allergies Coded Allergies: Duloxetine (Verified Adverse Reaction, Mild, DIZZINESS, 05/27/16) Indigotindisulfonate (Verified Adverse Reaction, Unknown, "spaced out", ) Medications Current Inpatient Medications Medications (Trade) Dose Ordered Sig/Hans Route Start Time Stop Time Status Last Admin Dose Admin Zolpidem Tartrate (Ambien Tab) 5 mg HSZ PRN PO 09/20/16 02:30 10/20/16 02:29 Acetaminophen (Tylenol Tab) 650 mg Q8H PRN PO 09/20/16 02:30 10/20/16 02:29 09/24/16 00:05 650 MG Digoxin (Lanoxin Tab) 0.125 mg DAILY@1600 PO 09/20/16 16:00 10/20/16 15:59 Future Hold 09/20/16 17:43 0.125 MG Diltiazem HCl (Cardizem Cd Cap) 240 mg QAM PO 09/20/16 09:00 10/20/16 08:59 09/24/16 08:36 240 MG Salmeterol Xinafoate/ Fluticasone (Advair Diskus 250/50 Inh) 1 puff BID INH 09/20/16 09:00 10/20/16 08:59 09/24/16 08:35 1 PUFF Levothyroxine Sodium (Synthroid Tab) 200 mcg DAILYBB PO 09/20/16 06:30 10/20/16 06:29 09/24/16 04:51 200 MCG Nitroglycerin (Nitrostat Tab) 0.4 mg PRN UT 09/20/16 02:30 10/20/16 02:29 Theophylline (Paul-Dur Extended Rel Tab) 600 mg HS PO 09/20/16 21:00 10/20/16 20:59 09/23/16 20:47 600 MG Tiotropium Freeman (Spiriva Handihaler Inhaler) 1 puff DAILY INH 09/20/16 09:00 10/20/16 08:59 09/24/16 08:36 1 PUFF Multi-Ingredient Ointment (Eucerin Unscented Cr) 1 appln BID EXT 09/20/16 09:00 10/20/16 08:59 09/24/16 08:36 1 APPLN Ferrous Gluconate (Ferrous Gluconate Tab) 648 mg BIDM PO 09/20/16 08:00 10/20/16 07:59 09/24/16 08:35 648 MG Pantoprazole Sodium (Protonix Tab) 40 mg QAM PO 09/20/16 09:00 10/20/16 08:59 09/24/16 08:37 40 MG Polyethylene (Miralax Powder Packet) 17 gm DAILY PRN PO 09/20/16 02:30 10/20/16 02:29 Ondansetron HCl (Zofran Inj) 4 mg Q6H PRN IV 09/20/16 03:00 10/20/16 02:59 09/20/16 08:34 4 MG Insulin Aspart (novoLOG ASPART) SLIDING SCALE If C... ACHS SC 09/20/16 06:30 10/20/16 06:59 09/24/16 08:24 6 UNITS Glucose (Glucose 40% Gel) UD PRN PO 09/20/16 03:00 10/20/16 02:59 Glucose (Glucose Chew Tab) 1 tabs UD PRN PO 09/20/16 03:00 10/20/16 02:59 Dextrose (Dextrose 50% 50ML Syringe) 50 ml UD PRN IV 09/20/16 03:00 10/20/16 02:59 09/22/16 20:12 50 ML Glucagon (Glucagon Inj) 1 mg UD PRN SQ 09/20/16 03:00 10/20/16 02:59 Acetaminophen/ Hydrocodone Bitart ([place] 5/325 Tab) 1 tab Q6H PRN PO 09/20/16 03:30 10/04/16 03:29 Acetaminophen/ Hydrocodone Bitart ([place] 5/325 Tab) 2 tab Q6H PRN PO 09/20/16 03:30 10/04/16 03:29 09/24/16 02:33 2 TAB Tramadol HCl (Ultram Tab) 50 mg Q4H PRN PO 09/20/16 03:30 10/20/16 03:29 09/24/16 08:34 50 MG Tramadol HCl 100 mg 100 mg Q4H PRN PO 09/20/16 03:30 10/20/16 03:29 09/21/16 05:41 100 MG Daptomycin/Sodium Chloride (Cubicin IV/Nss 50ml) 61 ml @ 100 mls/hr DAILY@0000 IV 09/21/16 00:00 09/29/16 00:37 09/23/16 23:52 100 MLS/HR Levothyroxine Sodium (Synthroid Tab) 50 mcg DAILYBB PO 09/20/16 06:30 10/20/16 06:29 09/24/16 04:51 50 MCG Piperacillin Sod/ Tazobactam Sod (Consult) 1 ea UD PRN N/A 09/20/16 11:00 10/20/16 10:59 Rivaroxaban (Xarelto Tab) 15 mg DAILYBD PO 09/20/16 16:15 10/20/16 16:14 Future hold 09/23/16 17:38 15 MG Insulin Human Isoph/Insulin Regular (novoLIN 70/30 REGULAR) 70 units BIDM SC 09/21/16 16:45 10/21/16 16:44 Future Hold 09/22/16 17:13 70 UNITS Nystatin (Mycostatin Powder) 1 appln TID PRN EXT 09/21/16 10:30 10/21/16 10:29 09/23/16 08:18 1 APPLN Alprazolam (Xanax Tab) 0.5 mg Q8H PRN PO 09/21/16 14:30 10/21/16 14:29 09/24/16 08:30 0.5 MG Hydroxyzine HCl 25 mg 25 mg Q8H PRN PO 09/22/16 09:30 10/22/16 09:29 09/22/16 20:35 25 MG Piperacillin Sod/ Tazobactam Sod/ Dextrose (Zosyn Iv/D5 100ml) 120 ml @ 30 mls/hr Q8H IV 09/22/16 16:00 10/22/16 15:59 09/24/16 08:30 30 MLS/HR Miscellaneous Information (Consult Glycemic Management Pharmacy) 1 ea UD PRN N/A 09/23/16 09:19 10/23/16 09:18 Potassium Chloride (Klor-Con Tab) 20 meq BID PO 09/23/16 21:00 10/23/16 20:59 09/24/16 08:36 20 MEQ Insulin Glargine (Lantus Solostar Pen) 35 unit BID SC 09/24/16 09:00 10/24/16 08:59 Impression (1) AINSLEY (acute kidney injury) (2) Hypokalemia (3) Ambulatory dysfunction (4) CHF (congestive heart failure) (5) CKD (chronic kidney disease) stage 3, GFR 30-59 ml/min (6) Anemia Valery is a 71 year-old female with CKD, Hypertension, CHF with diastolic dysfunction, ambulatory dysfunction, chronic LE edema and chronic ischemic ulcer with possible osteomyelitis. Admitted to hospital with fall at home and viral syndrome. Developed AINSLEY with IV contrast exposure, hypotension with variable BP, hypoalbuminemia, high does of diuretic. Baseline creatinine around 1.5 mg/dL. Non oliguric. Recommendations -- Maintain even fluid balance -- Start spironolactone 25 mg daily this AM -- Continue KCl replacement with oral potassium chloride 20 mEq BID -- Document I/O's -- Check metabolic profile with Mg in AM
[2016-09-24] MEDS ORDERED: POTASSIUM PHOSPHATE INJ 15 MMOL in SODIUM CHLORIDE 0.9% 250ML 250 ML IV SCH (11:15)
[2016-09-24] MEDS ORDERED: SPIRONOLACTONE 25 MG TAB PO ONE (11:30)
--- NOTE | 2016-09-24 14:53 | Pharmacy Progress Note ---
Glycemic Control: Progress Nt Date of Service Sep 24, 2016. Scope Glycemic Pharmacist consulted by Dr Wild on 09/23/16 for glycemic control and to write orders per [facility] inpatient glycemic control protocol. Objective Accuchecks BSG (last 24hrs): Test 09/23/16 16:16 09/23/16 20:13 09/24/16 07:02 09/24/16 08:11 Bedside Glucose 99 mg/dl (70-90) 97 mg/dl (70-90) 122 mg/dl (70-90) Random Glucose 128 mg/dl (70-99) Test 09/24/16 11:52 Bedside Glucose 162 mg/dl (70-90) Laboratory Data (last 24hrs) Test 09/24/16 08:11 Anion Gap 11.0 mmol/L BUN/Creatinine Ratio 16.0 Blood Urea Nitrogen 22 mg/dl Creatinine 1.40 mg/dl Potassium Level 3.3 mmol/L Sodium Level 138 mmol/L White Blood Count 10.98 K/uL Red Blood Count 2.85 M/uL Hemoglobin 8.5 g/dL Hematocrit 25.6 % Mean Corpuscular Volume 89.8 fL Mean Corpuscular Hemoglobin 29.8 pg Mean Corpuscular Hemoglobin Concent 33.2 g/dl Platelet Count 204 K/uL Mean Platelet Volume 8.3 fL Neutrophils (%) (Auto) 77.8 % Lymphocytes (%) (Auto) 6.6 % Monocytes (%) (Auto) 7.9 % Eosinophils (%) (Auto) 3.6 % Basophils (%) (Auto) 0.5 % Neutrophils # (Auto) 8.55 K/uL Lymphocytes # (Auto) 0.72 K/uL Monocytes # (Auto) 0.87 K/uL Eosinophils # (Auto) 0.40 K/uL Basophils # (Auto) 0.05 K/uL HbA1c: Test 09/20/16 14:53 Hemoglobin A1c 5.3 % (4.5-5.6) Recent Pertinent Medications Outpatient Anti-diabetic Regimen: * Novolin 70/30 90 units SQ BID * A1c = 5.3 % 09/20/16 The patient is currently receiving: * Basal insulin: Lantus 50 units every 12 hours - give 1/2 dose if BSG less than 110 * Correctional Insulin: Novolog Correction per scale ACHS Goal Range: Low 120 mg/dL - High 160 mg/dL Correction Factor: 20 mg/dL/unit * Prandial insulin: Per carb ratio of 1 unit per 7 grams CHO consumed * Oral Agents: None currently Risk Factors for Insulin Resistance: * Infection: diabetic foot infxn; receiving daptomycin + Zosyn * Diet: ordered T2DM / AHA diet; tolerating diet well today Assessment & Plan ASSESSMENT: 09/23/16 (prior note): * 71 yo type 2 diabetic admitted with cellulitis. A1c of 5.3 indicates too- tight glycemic control recently with some hypoglycemic episodes. On admission she was started on home dose of Novolin 70/30 (fixed dose basal and carb coverage) with additional Novolog correction and carb factor. She received 233 units of insulin on 09/20 with hypoglycemic episode. * Novolin 70/30 was decreased to 70 units bid with same Novolog. She received 86 units of insulin on 09/21, 151 units on 09/22 with hypoglycemic episode yesterday evening and this morning, likely due to some accumulation with poor renal function and inadequate po intake. Insulins held until BSG's rebounded, then switched to Lantus lower dose and slightly tighter Novolog, for greater flexibility. Will reassess in am. 09/24/16: * Fasting BSG 122 this AM with 75 units of Lantus on board. Pt only received 25 units Lantus last PM due to BSG < 110. Will reduce the Lantus dose further today. She already received 50 units of Lantus this AM (confirmed with RN). Will reduce this evening's dose and restart tomorrow in equally divided doses BID (35 units BID) * Over the last 24 hours she has received 81 units of SQ insulin total. Most of which was basal insulin. She really ate very few carbs yesterday. * I agree with the current Novolog doses. Thus far they have prevented post- prandial hyperglycemia. PLAN FOR INPATIENT GLYCEMIC CONTROL: * Decreasing Lantus to 20 units SQ this PM x 1 then begin 35 units BID tomorrow AM; give 1/2 dose if BSG less than 110 * Continuing correction factor of 20 mg/dl/unit * Continuing carb ratio of 1 unit per 7 grams CHO consumed * Continuing goal range of Low 120 mg/dL - High 160 mg/dL * Please note that the plan above was derived based on current level of insulin resistance and hospital stress. These recommendations are appropriate for inpatient admission only. Plan of care upon discharge will need to be reassessed to avoid potential outpatient hypo/hyperglycemia. Thank you.
--- NOTE | 2016-09-24 15:06 | Progress Note ---
Subjective Date of Service: Sep 24, 2016. Subjective pt with one bottle GBS from initial blood cultures, repeats negative. wound care eval pending, remains on broad abx, tolerating well. wbc improved overall, 10.9 today. afebrile. creat 1.4.h/o wound with MRSA Problem List Medical Problems: (1) Atrial fibrillation Status: Acute (2) Bifascicular block Status: Acute (3) Cellulitis of both lower extremities Status: Acute (4) Cellulitis of foot, left Status: Acute (5) Cellulitis of left lower leg Status: Acute (6) CHF (congestive heart failure) Status: Acute (7) Constipation Status: Acute (8) Diabetic foot ulcer Status: Acute (9) Electrolyte abnormality Status: Acute (10) Hypokalemia Status: Acute (11) Leukocytosis Status: Acute (12) Sepsis Status: Acute (13) UTI (urinary tract infection) Status: Acute Objective Vital Signs Date Time Temp Pulse Resp B/P Pulse Ox O2 Delivery O2 Flow Rate FiO2 09/24/16 12:00 99 Nasal Cannula 3.0 Humidified Oxygen 09/24/16 11:54 37.2 84 20 153/76 99 Nasal Cannula 3.0 Humidified Oxygen 09/24/16 08:00 99 Nasal Cannula 3.0 Humidified Oxygen 09/24/16 07:15 36.9 80 20 134/67 99 Nasal Cannula 3.0 Humidified Oxygen 09/24/16 04:00 Nasal Cannula 3.0 09/24/16 03:56 36.9 83 18 135/65 99 3.0 09/24/16 00:15 98 Nasal Cannula 3.0 09/24/16 00:06 36.8 83 18 131/55 98 09/23/16 20:30 99 Nasal Cannula 3.0 09/23/16 19:40 36.6 76 20 140/67 99 2.0 09/23/16 16:00 Nasal Cannula 3.0 09/23/16 15:49 37.2 101 20 158/70 98 Room Air Laboratory Results Last 24 Hours Test 09/23/16 16:16 09/23/16 20:13 09/24/16 07:02 09/24/16 08:11 Bedside Glucose 99 mg/dl 97 mg/dl 122 mg/dl White Blood Count 10.98 K/uL Red Blood Count 2.85 M/uL Hemoglobin 8.5 g/dL Hematocrit 25.6 % Mean Corpuscular Volume 89.8 fL Mean Corpuscular Hemoglobin 29.8 pg Mean Corpuscular Hemoglobin Concent 33.2 g/dl Platelet Count 204 K/uL Mean Platelet Volume 8.3 fL Neutrophils (%) (Auto) 77.8 % Lymphocytes (%) (Auto) 6.6 % Monocytes (%) (Auto) 7.9 % Eosinophils (%) (Auto) 3.6 % Basophils (%) (Auto) 0.5 % Neutrophils # (Auto) 8.55 K/uL Lymphocytes # (Auto) 0.72 K/uL Monocytes # (Auto) 0.87 K/uL Eosinophils # (Auto) 0.40 K/uL Basophils # (Auto) 0.05 K/uL RDW Standard Deviation 58.1 fL RDW Coefficient of Variation 17.6 % Immature Granulocyte % (Auto) 3.6 % Immature Granulocyte # (Auto) 0.39 K/uL Nucleated RBC Absolute Count (auto) 0.02 K/uL Nucleated Red Blood Cells % 0.2 % Basophilic Stippling 1+ Anisocytosis PRESENT Sodium Level 138 mmol/L Potassium Level 3.3 mmol/L Chloride Level 98 mmol/L Carbon Dioxide Level 29 mmol/L Anion Gap 11.0 mmol/L Blood Urea Nitrogen 22 mg/dl Creatinine 1.40 mg/dl Est Creatinine Clear Calc Drug Dose 42.3 ml/min Estimated GFR () 43.4 Estimated GFR (Non- 37.4 BUN/Creatinine Ratio 16.0 Random Glucose 128 mg/dl Calcium Level 8.7 mg/dl Phosphorus Level 1.9 mg/dl Magnesium Level 2.4 mg/dl Total Bilirubin 0.7 mg/dl Aspartate Amino Transf (AST/SGOT) 13 U/L Alanine Aminotransferase (ALT/SGPT) 10 U/L Alkaline Phosphatase 134 U/L Total Protein 6.1 gm/dl Albumin 2.3 gm/dl Globulin 3.8 gm/dl Albumin/Globulin Ratio 0.6 Test 09/24/16 11:52 Bedside Glucose 162 mg/dl Assessment and Plan (1) Septicemia due to group B Streptococcus Assessment & Plan: for now will continue abx pending wound eval, hopefully can change to po soon. will need continued follow up in wound center. (2) Cellulitis of left lower leg Status: Acute
[2016-09-24] MEDS: RIVAROXABAN TAB 15 MG TAB PO SCH (16:29)
--- NOTE | 2016-09-24 18:09 | Progress Note ---
Subjective Date of Service: Sep 24, 2016. Subjective Pt evaluation today including: conversation w/ patient, physical exam, chart review, lab review, review of studies Voiding: no incontinence Problem List Medical Problems: (1) Atrial fibrillation Status: Acute (2) Bifascicular block Status: Acute (3) Cellulitis of both lower extremities Status: Acute (4) Cellulitis of foot, left Status: Acute (5) Cellulitis of left lower leg Status: Acute (6) CHF (congestive heart failure) Status: Acute (7) Constipation Status: Acute (8) Diabetic foot ulcer Status: Acute (9) Electrolyte abnormality Status: Acute (10) Hypokalemia Status: Acute (11) Leukocytosis Status: Acute (12) Sepsis Status: Acute (13) UTI (urinary tract infection) Status: Acute Review of Systems Constitutional: No chills, No fever Eyes: No worsening of vision ENT: No hearing loss Respiratory: No cough, No shortness of breath, No sputum Cardiac: No chest pain, No edema, No orthopnea Abdomen: + constipation, No diarrhea, No nausea, No pain, No vomiting Musculoskeletal: No joint pain Female : No dysuria Psychiatric: No depression symptoms Endo: No fatigue Skin: No rash Medications Current Inpatient Medications Medications (Trade) Dose Ordered Sig/Hans Route Start Time Stop Time Status Last Admin Dose Admin Zolpidem Tartrate (Ambien Tab) 5 mg HSZ PRN PO 09/20/16 02:30 10/20/16 02:29 Acetaminophen (Tylenol Tab) 650 mg Q8H PRN PO 09/20/16 02:30 10/20/16 02:29 09/24/16 00:05 650 MG Digoxin (Lanoxin Tab) 0.125 mg DAILY@1600 PO 09/20/16 16:00 10/20/16 15:59 Future Hold 09/20/16 17:43 0.125 MG Diltiazem HCl (Cardizem Cd Cap) 240 mg QAM PO 09/20/16 09:00 10/20/16 08:59 09/24/16 08:36 240 MG Salmeterol Xinafoate/ Fluticasone (Advair Diskus 250/50 Inh) 1 puff BID INH 09/20/16 09:00 10/20/16 08:59 09/24/16 08:35 1 PUFF Levothyroxine Sodium (Synthroid Tab) 200 mcg DAILYBB PO 09/20/16 06:30 10/20/16 06:29 09/24/16 04:51 200 MCG Nitroglycerin (Nitrostat Tab) 0.4 mg PRN UT 09/20/16 02:30 10/20/16 02:29 Theophylline ([place] Extended Rel Tab) 600 mg HS PO 09/20/16 21:00 10/20/16 20:59 09/23/16 20:47 600 MG Tiotropium [place] (Spiriva Handihaler Inhaler) 1 puff DAILY INH 09/20/16 09:00 10/20/16 08:59 09/24/16 08:36 1 PUFF Multi-Ingredient Ointment (Eucerin Unscented Cr) 1 appln BID EXT 09/20/16 09:00 10/20/16 08:59 09/24/16 08:36 1 APPLN Ferrous Gluconate (Ferrous Gluconate Tab) 648 mg BIDM PO 09/20/16 08:00 10/20/16 07:59 09/24/16 16:29 648 MG Pantoprazole Sodium (Protonix Tab) 40 mg QAM PO 09/20/16 09:00 10/20/16 08:59 09/24/16 08:37 40 MG Polyethylene (Miralax Powder Packet) 17 gm DAILY PRN PO 09/20/16 02:30 10/20/16 02:29 Ondansetron HCl (Zofran Inj) 4 mg Q6H PRN IV 09/20/16 03:00 10/20/16 02:59 09/20/16 08:34 4 MG Insulin Aspart (novoLOG ASPART) SLIDING SCALE If C... ACHS SC 09/20/16 06:30 10/20/16 06:59 09/24/16 11:00 6 UNITS Glucose (Glucose 40% Gel) UD PRN PO 09/20/16 03:00 10/20/16 02:59 Glucose (Glucose Chew Tab) 1 tabs UD PRN PO 09/20/16 03:00 10/20/16 02:59 Dextrose (Dextrose 50% 50ML Syringe) 50 ml UD PRN IV 09/20/16 03:00 10/20/16 02:59 09/22/16 20:12 50 ML Glucagon (Glucagon Inj) 1 mg UD PRN SQ 09/20/16 03:00 10/20/16 02:59 Acetaminophen/ Hydrocodone Bitart ([place] 5/325 Tab) 1 tab Q6H PRN PO 09/20/16 03:30 10/04/16 03:29 Acetaminophen/ Hydrocodone Bitart ([place] 5/325 Tab) 2 tab Q6H PRN PO 09/20/16 03:30 10/04/16 03:29 09/24/16 02:33 2 TAB Tramadol HCl (Ultram Tab) 50 mg Q4H PRN PO 09/20/16 03:30 10/20/16 03:29 09/24/16 08:34 50 MG Tramadol HCl 100 mg 100 mg Q4H PRN PO 09/20/16 03:30 10/20/16 03:29 09/21/16 05:41 100 MG Daptomycin/Sodium Chloride ([place] IV/Nss 50ml) 61 ml @ 100 mls/hr DAILY@0000 IV 09/21/16 00:00 09/29/16 00:37 09/23/16 23:52 100 MLS/HR Levothyroxine Sodium (Synthroid Tab) 50 mcg DAILYBB PO 09/20/16 06:30 10/20/16 06:29 09/24/16 04:51 50 MCG Piperacillin Sod/ Tazobactam Sod (Consult) 1 ea UD PRN N/A 09/20/16 11:00 10/20/16 10:59 Rivaroxaban (Xarelto Tab) 15 mg DAILYBD PO 09/20/16 16:15 10/20/16 16:14 Future hold 09/24/16 16:29 15 MG Insulin Human Isoph/Insulin Regular (novoLIN 70/30 REGULAR) 70 units BIDM SC 09/21/16 16:45 10/21/16 16:44 Future Hold 09/22/16 17:13 70 UNITS Nystatin (Mycostatin Powder) 1 appln TID PRN EXT 09/21/16 10:30 10/21/16 10:29 09/23/16 08:18 1 APPLN Alprazolam (Xanax Tab) 0.5 mg Q8H PRN PO 09/21/16 14:30 10/21/16 14:29 09/24/16 08:30 0.5 MG Hydroxyzine HCl 25 mg 25 mg Q8H PRN PO 09/22/16 09:30 10/22/16 09:29 09/22/16 20:35 25 MG Piperacillin Sod/ Tazobactam Sod/ Dextrose (Zosyn Iv/D5 100ml) 120 ml @ 30 mls/hr Q8H IV 09/22/16 16:00 10/22/16 15:59 09/24/16 16:29 30 MLS/HR Miscellaneous Information (Consult Glycemic Management Pharmacy) 1 ea UD PRN N/A 09/23/16 09:19 10/23/16 09:18 Potassium Chloride (Klor-Con Tab) 20 meq BID PO 09/23/16 21:00 10/23/16 20:59 09/24/16 08:36 20 MEQ Spironolactone (Aldactone Tab) 25 mg QAM PO 09/25/16 09:00 10/25/16 08:59 Insulin Glargine (Lantus Solostar Pen) 20 unit HS SC 09/24/16 21:00 09/24/16 21:01 Insulin Glargine (Lantus Solostar Pen) 35 unit BID SC 09/25/16 09:00 10/25/16 08:59 Objective Vital Signs Date Time Temp Pulse Resp B/P Pulse Ox O2 Delivery O2 Flow Rate FiO2 09/24/16 16:00 99 Nasal Cannula 3.0 Humidified Oxygen 09/24/16 15:31 36.8 55 18 137/67 97 09/24/16 12:00 99 Nasal Cannula 3.0 Humidified Oxygen 09/24/16 11:54 37.2 84 20 153/76 99 Nasal Cannula 3.0 Humidified Oxygen 09/24/16 08:00 99 Nasal Cannula 3.0 Humidified Oxygen 09/24/16 07:15 36.9 80 20 134/67 99 Nasal Cannula 3.0 Humidified Oxygen 09/24/16 04:00 Nasal Cannula 3.0 09/24/16 03:56 36.9 83 18 135/65 99 3.0 09/24/16 00:15 98 Nasal Cannula 3.0 09/24/16 00:06 36.8 83 18 131/55 98 09/23/16 20:30 99 Nasal Cannula 3.0 09/23/16 19:40 36.6 76 20 140/67 99 2.0 Physical Exam General Appearance: no apparent distress Eyes: normal inspection ENT: normal ENT inspection, hearing grossly normal Neck: supple Respiratory/Chest: chest non-tender, lungs clear, normal breath sounds, no respiratory distress, no accessory muscle use Cardiovascular: regular rate, rhythm, no edema, no gallop, no JVD, no murmur Abdomen: normal bowel sounds, non tender, soft, no organomegaly, no pulsatile mass Extremities: + inflammation, + pertinent finding (wwound vac in place) Neurologic/Psychiatric: pie dough roller II-XII nml as tested, no motor/sensory deficits, alert, normal mood/affect, oriented x 3 Skin: warm/dry, no rash Laboratory Results Last 24 Hours Test 09/23/16 20:13 09/24/16 07:02 09/24/16 08:11 09/24/16 11:52 Bedside Glucose 97 mg/dl 122 mg/dl 162 mg/dl White Blood Count 10.98 K/uL Red Blood Count 2.85 M/uL Hemoglobin 8.5 g/dL Hematocrit 25.6 % Mean Corpuscular Volume 89.8 fL Mean Corpuscular Hemoglobin 29.8 pg Mean Corpuscular Hemoglobin Concent 33.2 g/dl Platelet Count 204 K/uL Mean Platelet Volume 8.3 fL Neutrophils (%) (Auto) 77.8 % Lymphocytes (%) (Auto) 6.6 % Monocytes (%) (Auto) 7.9 % Eosinophils (%) (Auto) 3.6 % Basophils (%) (Auto) 0.5 % Neutrophils # (Auto) 8.55 K/uL Lymphocytes # (Auto) 0.72 K/uL Monocytes # (Auto) 0.87 K/uL Eosinophils # (Auto) 0.40 K/uL Basophils # (Auto) 0.05 K/uL RDW Standard Deviation 58.1 fL RDW Coefficient of Variation 17.6 % Immature Granulocyte % (Auto) 3.6 % Immature Granulocyte # (Auto) 0.39 K/uL Nucleated RBC Absolute Count (auto) 0.02 K/uL Nucleated Red Blood Cells % 0.2 % Basophilic Stippling 1+ Anisocytosis PRESENT Sodium Level 138 mmol/L Potassium Level 3.3 mmol/L Chloride Level 98 mmol/L Carbon Dioxide Level 29 mmol/L Anion Gap 11.0 mmol/L Blood Urea Nitrogen 22 mg/dl Creatinine 1.40 mg/dl Est Creatinine Clear Calc Drug Dose 42.3 ml/min Estimated GFR () 43.4 Estimated GFR (Non- 37.4 BUN/Creatinine Ratio 16.0 Random Glucose 128 mg/dl Calcium Level 8.7 mg/dl Phosphorus Level 1.9 mg/dl Magnesium Level 2.4 mg/dl Total Bilirubin 0.7 mg/dl Aspartate Amino Transf (AST/SGOT) 13 U/L Alanine Aminotransferase (ALT/SGPT) 10 U/L Alkaline Phosphatase 134 U/L Total Protein 6.1 gm/dl Albumin 2.3 gm/dl Globulin 3.8 gm/dl Albumin/Globulin Ratio 0.6 Test 09/24/16 16:16 Bedside Glucose 111 mg/dl Assessment and Plan Left foot diabetic cellulitis/abscess S/P I&D and wound VAC Continue wound care continue Abx daptomycin 550 mg IV daily, and Zosyn 4.5 G IV every 8 hours. (A culture of ulcer grew group B strep and MRSA last admission. She was discharged on a 4-week course of oral doxycycline and Augmentin from 08/14) ID following awaiting this admission cultures to finalize Diabetes mellitus--continue Novolin 70/30 twice a day, Had multiple episodes of hypoglycemia pharmacy to adjust insulin dose. CAD/hypertension/CHF/anasarca currently appears to be at base lone diuretics are on hold as well as IVF Hypothyroidism--continue levothyroxine sodium at 250 g by mouth daily. TSH was 4.8 COPD--continue Advair Diskus 250/50 one inhalation twice a day, Spiriva HandiHaler 1 inhalation every morning, and theophylline CR 600 mg by mouth at bedtime. GERD--change omeprazole 20 mg by mouth daily to pantoprazole 40 mg by mouth daily. [facility] nephrology consult appreciated Hold IVF Hold nephrotoxics and diuretics monitor renal function 1.4 cm thickened endometrium and probable history of endometrial polyp in the past Dough Maker consult appreciated The plan would be to have her follow up with Dr. Becker ( her doctor in the past), for the hysterosonogram upon discharged Suspected liver cirrhosis with manifestations of portal hypertension/ splenomegaly and varices formation on CT abdomen 7 mm right lower lobe nodule and a possible right and middle lobe nodule which can be followed up as an out patient 3. Mild endometrial thickening in a postmenopausal patient. Correlation with postmenopausal bleeding is recommended as well as follow-up pelvic ultrasound. Mild aortoiliac and inguinal lymphadenopathy. This could be reactive given lower extremity cellulitis although a neoplastic process could appear similar. A short-term follow-up CT of the abdomen and pelvis in 2 months is recommended. 2.8 cm right adrenal nodule which likely reflects an adenoma Afib currently rate controlled continue xarelto
[2016-09-24] MEDS: THEOPHYLLINE 300MG EXTENDED REL TAB PO SCH (22:40)
[2016-09-25] VITALS: O2SAT 99
[2016-09-25] MEDS: DAPTOmycin IV 550 MG in SODIUM CHLORIDE 0.9% 50ML 50 ML IV SCH ×2
[2016-09-25] MEDS: LEVOTHYROXINE 50 MCG TAB PO SCH (06:30)
[2016-09-25] MEDS: LEVOTHYROXINE 200 MCG TAB PO SCH (06:30)
[2016-09-25 06:50] LABS: BUN/CREATININE RATIO 18.7 (10-20); CALCIUM 8.6 mg/dl (8.5-10.1); CREATININE 1.3 mg/dl (0.60-1.20); MAGNESIUM 2.3 mg/dl (1.8-2.4); POTASSIUM 3.7 mmol/L (3.5-5.1)
[2016-09-25 06:56] LABS: ALB/GLOB RATIO 0.5 (0.9-2); PHOSPHORUS 2.8 mg/dl (2.5-4.9)
[2016-09-25 07:01] LABS: HEMATOCRIT 23.7 % (37-47); MEAN CELL VOLUME 88.8 fL (80-100); MEAN CORPUSCULAR HEMOGLOBIN 29.6 pg (25-34); MEAN CORPUSCULAR HGB CONC 33.3 g/dl (32-36); MEAN PLATELET VOLUME 8.6 fL (7.4-10.4); PLATELET COUNT 201 K/uL (130-400); RED BLOOD COUNT 2.67 M/uL (4.2-5.4); WHITE BLOOD COUNT 10.79 K/uL (4.8-10.8)
[2016-09-25 07:30] LABS: ANISOCYTOSIS PRESENT; BASO % 0.3 %; BASO ABS # 0.03 K/uL (0-0.2); COMPLETE YES; EOS % 2.3 %; IG% 7.5 %; LYMPH % 7.2 %; LYMPH ABS # 0.78 K/uL (1.2-3.4); MONO % 9.4 %; NEUT % 73.3 %
[2016-09-25] MEDS: FLUTICASONE/SALMETEROL 250/50 (ADVAIR) 14 PUFF/1 INHALER INH SCH ×2 (07:38→21:00)
[2016-09-25] MEDS: PANTOprazole SOD 40 MG TAB PO SCH (07:38)
[2016-09-25] MEDS: DILTIAZEM HCL 240 MG CAPCR PO SCH (07:38)
[2016-09-25] MEDS: FERROUS GLUCONATE 324 MG TAB PO SCH ×2 (07:39→16:03)
[2016-09-25] MEDS: SPIRONOLACTONE 25 MG TAB PO SCH (07:39)
[2016-09-25] MEDS: POTASSIUM CHLORIDE 20 MEQ TABCR PO SCH ×2 (07:40→21:01)
[2016-09-25] MEDS: EUCERIN CR 120 GM JAR EXT SCH ×2 (07:40→21:00)
[2016-09-25 07:44] VITALS: BP 147/62; PULSE 72; TEMP 36.8; O2SAT 100
[2016-09-25] MEDS: HYDROCODONE/ACETAMOPHEN 5/325MG TAB PO PRN ×2 (07:51→16:02)
[2016-09-25 08:30] VITALS: O2SAT 100
[2016-09-25] MEDS: INSULIN GLARGINE SOLOSTAR 100 UNITS/ML 3 ML PEN SC SCH ×2 (09:29→21:06)
[2016-09-25] MEDS: INSULIN ASPART 100 UNITS/ML 3 ML PEN SC SCH ×4 (09:32→21:05)
[2016-09-25] MEDS: PIPERACILL/TAZOBAC IV 4.5 GM in DEXTROSE 5% 100ML IV SCH ×4 (09:44→16:01)
--- NOTE | 2016-09-25 10:40 | Progress Note ---
Subjective Date of Service: Sep 25, 2016. Subjective repeat blood cultures negative, tolerating abx. no imaging of foot but previous imaging on last admission negative for osteo. afebrile. tolerating abx. 09/09 blood culture - gbs, repeats all negative. no events overnight. Problem List Medical Problems: (1) Atrial fibrillation Status: Acute (2) Bifascicular block Status: Acute (3) Cellulitis of both lower extremities Status: Acute (4) Cellulitis of foot, left Status: Acute (5) Cellulitis of left lower leg Status: Acute (6) CHF (congestive heart failure) Status: Acute (7) Constipation Status: Acute (8) Diabetic foot ulcer Status: Acute (9) Electrolyte abnormality Status: Acute (10) Hypokalemia Status: Acute (11) Leukocytosis Status: Acute (12) Sepsis Status: Acute (13) UTI (urinary tract infection) Status: Acute Objective Vital Signs Date Time Temp Pulse Resp B/P Pulse Ox O2 Delivery O2 Flow Rate FiO2 09/25/16 07:44 36.8 72 16 147/62 100 Nasal Cannula 3.0 09/25/16 00:00 99 Room Air 3.0 09/24/16 23:11 36.7 71 16 128/69 98 Room Air 2.0 09/24/16 20:00 36.7 75 18 119/56 99 Nasal Cannula 3.0 09/24/16 16:00 99 Nasal Cannula 3.0 Humidified Oxygen 09/24/16 15:31 36.8 55 18 137/67 97 09/24/16 12:00 99 Nasal Cannula 3.0 Humidified Oxygen 09/24/16 11:54 37.2 84 20 153/76 99 Nasal Cannula 3.0 Humidified Oxygen Laboratory Results Item Value Date Time Gram Stain - Final Complete 08/06/16 1525 Ulcer Foot Left Blood Culture - Final Complete 09/19/16 2300 Blood Group G Beta Strep Blood Culture - Preliminary Resulted 09/20/16 1453 Blood NO GROWTH TO DATE. Blood Culture - Preliminary Resulted 09/20/16 1455 Blood NO GROWTH TO DATE. Last 24 Hours Test 09/24/16 11:52 09/24/16 16:16 09/25/16 05:26 09/25/16 08:00 Bedside Glucose 162 mg/dl 111 mg/dl White Blood Count 10.79 K/uL Red Blood Count 2.67 M/uL Hemoglobin 7.9 g/dL Hematocrit 23.7 % Mean Corpuscular Volume 88.8 fL Mean Corpuscular Hemoglobin 29.6 pg Mean Corpuscular Hemoglobin Concent 33.3 g/dl Platelet Count 201 K/uL Mean Platelet Volume 8.6 fL Neutrophils (%) (Auto) 73.3 % Lymphocytes (%) (Auto) 7.2 % Monocytes (%) (Auto) 9.4 % Eosinophils (%) (Auto) 2.3 % Basophils (%) (Auto) 0.3 % Neutrophils # (Auto) 7.91 K/uL Lymphocytes # (Auto) 0.78 K/uL Monocytes # (Auto) 1.01 K/uL Eosinophils # (Auto) 0.25 K/uL Basophils # (Auto) 0.03 K/uL RDW Standard Deviation 58.3 fL RDW Coefficient of Variation 17.9 % Immature Granulocyte % (Auto) 7.5 % Immature Granulocyte # (Auto) 0.81 K/uL Nucleated RBC Absolute Count (auto) 0.04 K/uL Nucleated Red Blood Cells % 0.4 % Basophilic Stippling 1+ Anisocytosis PRESENT Sodium Level 139 mmol/L Potassium Level 3.7 mmol/L Chloride Level 100 mmol/L Carbon Dioxide Level 33 mmol/L Anion Gap 6.0 mmol/L Blood Urea Nitrogen 24 mg/dl Creatinine 1.30 mg/dl Est Creatinine Clear Calc Drug Dose 45.5 ml/min Estimated GFR () 47.5 Estimated GFR (Non- 41.0 BUN/Creatinine Ratio 18.7 Random Glucose 168 mg/dl Calcium Level 8.6 mg/dl Phosphorus Level 2.8 mg/dl Magnesium Level 2.3 mg/dl Total Bilirubin 0.8 mg/dl Aspartate Amino Transf (AST/SGOT) 10 U/L Alanine Aminotransferase (ALT/SGPT) 10 U/L Alkaline Phosphatase 127 U/L Total Protein 6.0 gm/dl Albumin 2.1 gm/dl Globulin 3.9 gm/dl Albumin/Globulin Ratio 0.5 Assessment and Plan (1) Septicemia due to group B Streptococcus Assessment & Plan: can continue iv abx for now, upon d/c can change to po augmentin 875mg po bid with food for 14 days. will need continued outpt wound care including vac. can follow with ID at wound center as well. (2) Cellulitis of left lower leg Status: Acute
--- NOTE | 2016-09-25 10:40 | Nephrology Progress Note ---
Nephrology Progress Note Date of Service Sep 25, 2016. Chief Complaint AINSLEY Subjective No acute events overnight. No complaints this morning. Denies shortness of breath. No pain. Appetite good. No fevers or chills. Review of Systems A complete review of systems was performed. Pertinent positives are noted above. All other systems are negative. Vital Signs Last 8 Hrs Date Time Temp Pulse Resp B/P Pulse Ox O2 Delivery O2 Flow Rate FiO2 09/25/16 07:44 36.8 72 16 147/62 100 Nasal Cannula 3.0 I & O 24-Hour Column 09/25/16 08:00 Intake Total 1651 ml Output Total 2600 ml Balance -949 ml Last Recorded Weight Weight (Kilograms): 102.300 Physical Exam General Appearance: WD/WN, no apparent distress Head: normocephalic, atraumatic Eyes: normal inspection, sclerae normal ENT: normal ENT inspection, pharynx normal Neck: supple, no JVD Respiratory/Chest: lungs clear, no respiratory distress, no accessory muscle use Cardiovascular: regular rate, rhythm, no gallop Abdomen/GI: non tender, soft Extremities/Musculoskelatal: normal inspection, + pedal edema Neurologic/Psych: alert, oriented x 3 Family History Heart disease Social History Smoking Status: Never smoker Smokeless Tobacco Use: No Alcohol Use: none Drug Use: none Marital Status: Housing Status: lives alone Occupation: disabled Laboratory Results Past 24 Hours 09/25/16 05:26 Red Blood Count 2.67, Mean Corpuscular Volume 88.8, Mean Corpuscular Hemoglobin 29.6, Mean Corpuscular Hemoglobin Concent 33.3, Mean Platelet Volume 8.6, Neutrophils (%) (Auto) 73.3, Lymphocytes (%) (Auto) 7.2, Monocytes (%) (Auto) 9.4, Eosinophils (%) (Auto) 2.3, Basophils (%) (Auto) 0.3, Neutrophils # (Auto) 7.91, Lymphocytes # (Auto) 0.78, Monocytes # (Auto) 1.01, Eosinophils # (Auto) 0.25, Basophils # (Auto) 0.03 09/25/16 05:26 Test 09/24/16 11:52 09/24/16 16:16 09/25/16 05:26 09/25/16 08:00 Bedside Glucose 162 mg/dl (70-90) 111 mg/dl (70-90) White Blood Count 10.79 K/uL (4.8-10.8) Red Blood Count 2.67 M/uL (4.2-5.4) Hemoglobin 7.9 g/dL (12.0-16.0) Hematocrit 23.7 % (37-47) Mean Corpuscular Volume 88.8 fL (80-100) Mean Corpuscular Hemoglobin 29.6 pg (25-34) Mean Corpuscular Hemoglobin Concent 33.3 g/dl (32-36) Platelet Count 201 K/uL (130-400) Mean Platelet Volume 8.6 fL (7.4-10.4) Neutrophils (%) (Auto) 73.3 % Lymphocytes (%) (Auto) 7.2 % Monocytes (%) (Auto) 9.4 % Eosinophils (%) (Auto) 2.3 % Basophils (%) (Auto) 0.3 % Neutrophils # (Auto) 7.91 K/uL (1.4-6.5) Lymphocytes # (Auto) 0.78 K/uL (1.2-3.4) Monocytes # (Auto) 1.01 K/uL (0.11-0.59) Eosinophils # (Auto) 0.25 K/uL (0-0.5) Basophils # (Auto) 0.03 K/uL (0-0.2) RDW Standard Deviation 58.3 fL (36.4-46.3) RDW Coefficient of Variation 17.9 % (11.5-14.5) Immature Granulocyte % (Auto) 7.5 % Immature Granulocyte # (Auto) 0.81 K/uL (0.00-0.02) Nucleated RBC Absolute Count (auto) 0.04 K/uL (0-0) Nucleated Red Blood Cells % 0.4 % Basophilic Stippling 1+ Anisocytosis PRESENT Anion Gap 6.0 mmol/L (3-11) Est Creatinine Clear Calc Drug Dose 45.5 ml/min Estimated GFR () 47.5 Estimated GFR (Non- 41.0 BUN/Creatinine Ratio 18.7 (10-20) Calcium Level 8.6 mg/dl (8.5-10.1) Phosphorus Level 2.8 mg/dl (2.5-4.9) Magnesium Level 2.3 mg/dl (1.8-2.4) Total Bilirubin 0.8 mg/dl (0.2-1) Aspartate Amino Transf (AST/SGOT) 10 U/L (15-37) Alanine Aminotransferase (ALT/SGPT) 10 U/L (12-78) Alkaline Phosphatase 127 U/L (45-117) Total Protein 6.0 gm/dl (6.4-8.2) Albumin 2.1 gm/dl (3.4-5.0) Globulin 3.9 gm/dl (2.5-4.0) Albumin/Globulin Ratio 0.5 (0.9-2) Allergies Coded Allergies: Duloxetine (Verified Adverse Reaction, Mild, DIZZINESS, 05/27/16) Indigotindisulfonate (Verified Adverse Reaction, Unknown, "spaced out", ) Medications Current Inpatient Medications Medications (Trade) Dose Ordered Sig/Hans Route Start Time Stop Time Status Last Admin Dose Admin Zolpidem Tartrate (Ambien Tab) 5 mg HSZ PRN PO 09/20/16 02:30 10/20/16 02:29 Acetaminophen (Tylenol Tab) 650 mg Q8H PRN PO 09/20/16 02:30 10/20/16 02:29 09/24/16 00:05 650 MG Digoxin (Lanoxin Tab) 0.125 mg DAILY@1600 PO 09/20/16 16:00 10/20/16 15:59 Future Hold 09/20/16 17:43 0.125 MG Diltiazem HCl (Cardizem Cd Cap) 240 mg QAM PO 09/20/16 09:00 10/20/16 08:59 09/25/16 07:38 240 MG Salmeterol Xinafoate/ Fluticasone (Advair Diskus 250/50 Inh) 1 puff BID INH 09/20/16 09:00 10/20/16 08:59 09/25/16 07:38 1 PUFF Levothyroxine Sodium (Synthroid Tab) 200 mcg DAILYBB PO 09/20/16 06:30 10/20/16 06:29 09/25/16 06:30 200 MCG Nitroglycerin (Nitrostat Tab) 0.4 mg PRN UT 09/20/16 02:30 10/20/16 02:29 Theophylline (Paul-Dur Extended Rel Tab) 600 mg HS PO 09/20/16 21:00 10/20/16 20:59 09/24/16 22:40 600 MG Tiotropium Fenwick (Spiriva Handihaler Inhaler) 1 puff DAILY INH 09/20/16 09:00 10/20/16 08:59 09/24/16 08:36 1 PUFF Multi-Ingredient Ointment (Eucerin Unscented Cr) 1 appln BID EXT 09/20/16 09:00 10/20/16 08:59 09/25/16 07:40 1 APPLN Ferrous Gluconate (Ferrous Gluconate Tab) 648 mg BIDM PO 09/20/16 08:00 10/20/16 07:59 09/25/16 07:39 648 MG Pantoprazole Sodium (Protonix Tab) 40 mg QAM PO 09/20/16 09:00 10/20/16 08:59 09/25/16 07:38 40 MG Polyethylene (Miralax Powder Packet) 17 gm DAILY PRN PO 09/20/16 02:30 10/20/16 02:29 Ondansetron HCl (Zofran Inj) 4 mg Q6H PRN IV 09/20/16 03:00 10/20/16 02:59 09/20/16 08:34 4 MG Insulin Aspart (novoLOG ASPART) SLIDING SCALE If C... ACHS SC 09/20/16 06:30 10/20/16 06:59 09/25/16 09:32 17 UNITS Glucose (Glucose 40% Gel) UD PRN PO 09/20/16 03:00 10/20/16 02:59 Glucose (Glucose Chew Tab) 1 tabs UD PRN PO 09/20/16 03:00 10/20/16 02:59 Dextrose (Dextrose 50% 50ML Syringe) 50 ml UD PRN IV 09/20/16 03:00 10/20/16 02:59 09/22/16 20:12 50 ML Glucagon (Glucagon Inj) 1 mg UD PRN SQ 09/20/16 03:00 10/20/16 02:59 Acetaminophen/ Hydrocodone Bitart (Wentworth 5/325 Tab) 1 tab Q6H PRN PO 09/20/16 03:30 10/04/16 03:29 09/24/16 22:44 1 TAB Acetaminophen/ Hydrocodone Bitart ([place]worth 5/325 Tab) 2 tab Q6H PRN PO 09/20/16 03:30 10/04/16 03:29 09/25/16 07:51 2 TAB Tramadol HCl (Ultram Tab) 50 mg Q4H PRN PO 09/20/16 03:30 10/20/16 03:29 09/24/16 08:34 50 MG Tramadol HCl 100 mg 100 mg Q4H PRN PO 09/20/16 03:30 10/20/16 03:29 09/21/16 05:41 100 MG Daptomycin/Sodium Chloride (Cubicin IV/Nss 50ml) 61 ml @ 100 mls/hr DAILY@0000 IV 09/21/16 00:00 09/29/16 00:37 09/25/16 00:00 100 MLS/HR Levothyroxine Sodium (Synthroid Tab) 50 mcg DAILYBB PO 09/20/16 06:30 10/20/16 06:29 09/25/16 06:30 50 MCG Piperacillin Sod/ Tazobactam Sod (Consult) 1 ea UD PRN N/A 09/20/16 11:00 10/20/16 10:59 Rivaroxaban (Xarelto Tab) 15 mg DAILYBD PO 09/20/16 16:15 10/20/16 16:14 Future hold 09/24/16 16:29 15 MG Nystatin (Mycostatin Powder) 1 appln TID PRN EXT 09/21/16 10:30 10/21/16 10:29 09/23/16 08:18 1 APPLN Alprazolam (Xanax Tab) 0.5 mg Q8H PRN PO 09/21/16 14:30 10/21/16 14:29 09/24/16 08:30 0.5 MG Hydroxyzine HCl 25 mg 25 mg Q8H PRN PO 09/22/16 09:30 10/22/16 09:29 09/22/16 20:35 25 MG Piperacillin Sod/ Tazobactam Sod/ Dextrose (Zosyn Iv/D5 100ml) 120 ml @ 30 mls/hr Q8H IV 09/22/16 16:00 10/22/16 15:59 09/25/16 09:44 30 MLS/HR Miscellaneous Information (Consult Glycemic Management Pharmacy) 1 ea UD PRN N/A 09/23/16 09:19 10/23/16 09:18 Potassium Chloride (Klor-Con Tab) 20 meq BID PO 09/23/16 21:00 10/23/16 20:59 09/25/16 07:40 20 MEQ Spironolactone (Aldactone Tab) 25 mg QAM PO 09/25/16 08:00 10/25/16 08:59 09/25/16 07:39 25 MG Insulin Glargine (Lantus Solostar Pen) 35 unit BID SC 09/25/16 08:00 10/25/16 08:59 09/25/16 09:29 35 UNIT Impression (1) AINSLEY (acute kidney injury) (2) Hypokalemia (3) Ambulatory dysfunction (4) CHF (congestive heart failure) (5) CKD (chronic kidney disease) stage 3, GFR 30-59 ml/min (6) Anemia Valery is a 71 year-old female with CKD, Hypertension, CHF with diastolic dysfunction, ambulatory dysfunction, chronic LE edema and chronic ischemic ulcer with possible osteomyelitis. Admitted to hospital with fall at home and viral syndrome. Developed AINSLEY with IV contrast exposure, hypotension with variable BP, hypoalbuminemia, high does of diuretic. Baseline creatinine around 1.5 mg/dL. Non oliguric. Recommendations -- Maintain even to slightly negative fluid balance -- Continue spironolactone 25 mg daily -- Continue to hold loop diuretic -- Continue KCl replacement with oral potassium chloride 20 mEq BID -- Document I/O's -- Check metabolic profile with Mg in AM -- Remove Johnston catheter for voiding trial today
[2016-09-25] MEDS: TIOTROPIUM BROMIDE 5 PUFF/90 MCG INH INH SCH (12:31)
[2016-09-25 15:21] VITALS: BP 144/72; PULSE 81; TEMP 37.1; O2SAT 100
[2016-09-25 16:02] VITALS: O2SAT 100
[2016-09-25] MEDS: RIVAROXABAN TAB 15 MG TAB PO SCH (16:03)
--- NOTE | 2016-09-25 18:08 | Progress Note ---
Subjective Date of Service: Sep 25, 2016. Subjective Pt evaluation today including: conversation w/ patient, physical exam, chart review, lab review, review of studies Problem List Medical Problems: (1) Atrial fibrillation Status: Acute (2) Bifascicular block Status: Acute (3) Cellulitis of both lower extremities Status: Acute (4) Cellulitis of foot, left Status: Acute (5) Cellulitis of left lower leg Status: Acute (6) CHF (congestive heart failure) Status: Acute (7) Constipation Status: Acute (8) Diabetic foot ulcer Status: Acute (9) Electrolyte abnormality Status: Acute (10) Hypokalemia Status: Acute (11) Leukocytosis Status: Acute (12) Sepsis Status: Acute (13) UTI (urinary tract infection) Status: Acute Review of Systems Constitutional: No fever Eyes: No worsening of vision ENT: No hearing loss Respiratory: No cough, No shortness of breath, No sputum Cardiac: No chest pain, No orthopnea Abdomen: No diarrhea, No nausea, No pain, No vomiting Musculoskeletal: + problem reported (wound vac in place), No joint pain, No muscle pain Female : No dysuria Neurologic: No memory loss Psychiatric: No depression symptoms Heme: No abnormal bleeding/bruising Endo: No fatigue Skin: No rash Objective Vital Signs Date Time Temp Pulse Resp B/P Pulse Ox O2 Delivery O2 Flow Rate FiO2 09/25/16 15:21 37.1 81 16 144/72 100 Nasal Cannula 3.0 09/25/16 08:30 100 Nasal Cannula 3.0 09/25/16 07:44 36.8 72 16 147/62 100 Nasal Cannula 3.0 09/25/16 00:00 99 Room Air 3.0 09/24/16 23:11 36.7 71 16 128/69 98 Room Air 2.0 09/24/16 20:00 36.7 75 18 119/56 99 Nasal Cannula 3.0 Physical Exam General Appearance: no apparent distress Eyes: normal inspection, PERRL, EOMI ENT: normal ENT inspection, hearing grossly normal, TMs normal, pharynx normal Neck: supple, no adenopathy, thyroid normal Respiratory/Chest: chest non-tender, lungs clear, normal breath sounds, no respiratory distress, no accessory muscle use Cardiovascular: regular rate, rhythm, no edema, no gallop, no JVD, no murmur Abdomen: normal bowel sounds, non tender, soft, no organomegaly, no pulsatile mass Extremities: + pertinent finding (wound vac in place, wound margins appears clean) 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, no motor/sensory deficits, alert, normal mood/affect Skin: normal color, warm/dry, no rash Laboratory Results Last 24 Hours Test 09/24/16 23:09 09/25/16 05:26 09/25/16 08:03 09/25/16 11:39 Bedside Glucose 183 mg/dl 312 mg/dl 245 mg/dl White Blood Count 10.79 K/uL Red Blood Count 2.67 M/uL Hemoglobin 7.9 g/dL Hematocrit 23.7 % Mean Corpuscular Volume 88.8 fL Mean Corpuscular Hemoglobin 29.6 pg Mean Corpuscular Hemoglobin Concent 33.3 g/dl Platelet Count 201 K/uL Mean Platelet Volume 8.6 fL Neutrophils (%) (Auto) 73.3 % Lymphocytes (%) (Auto) 7.2 % Monocytes (%) (Auto) 9.4 % Eosinophils (%) (Auto) 2.3 % Basophils (%) (Auto) 0.3 % Neutrophils # (Auto) 7.91 K/uL Lymphocytes # (Auto) 0.78 K/uL Monocytes # (Auto) 1.01 K/uL Eosinophils # (Auto) 0.25 K/uL Basophils # (Auto) 0.03 K/uL RDW Standard Deviation 58.3 fL RDW Coefficient of Variation 17.9 % Immature Granulocyte % (Auto) 7.5 % Immature Granulocyte # (Auto) 0.81 K/uL Nucleated RBC Absolute Count (auto) 0.04 K/uL Nucleated Red Blood Cells % 0.4 % Basophilic Stippling 1+ Anisocytosis PRESENT Sodium Level 139 mmol/L Potassium Level 3.7 mmol/L Chloride Level 100 mmol/L Carbon Dioxide Level 33 mmol/L Anion Gap 6.0 mmol/L Blood Urea Nitrogen 24 mg/dl Creatinine 1.30 mg/dl Est Creatinine Clear Calc Drug Dose 45.5 ml/min Estimated GFR () 47.5 Estimated GFR (Non- 41.0 BUN/Creatinine Ratio 18.7 Random Glucose 168 mg/dl Calcium Level 8.6 mg/dl Phosphorus Level 2.8 mg/dl Magnesium Level 2.3 mg/dl Total Bilirubin 0.8 mg/dl Aspartate Amino Transf (AST/SGOT) 10 U/L Alanine Aminotransferase (ALT/SGPT) 10 U/L Alkaline Phosphatase 127 U/L Total Protein 6.0 gm/dl Albumin 2.1 gm/dl Globulin 3.9 gm/dl Albumin/Globulin Ratio 0.5 Assessment and Plan Left foot diabetic cellulitis/abscess S/P I&D and wound VAC Continue wound care continue Abx daptomycin 550 mg IV daily, and Zosyn 4.5 G IV every 8 hours. (A culture of ulcer grew group B strep and MRSA last admission. She was discharged on a 4-week course of oral doxycycline and Augmentin from 08/14) as per ID upon d/c can change to po augmentin 875mg po bid with food for 14 days ID following awaiting this admission cultures to finalize Diabetes mellitus--continue Novolin 70/30 twice a day, Had multiple episodes of hypoglycemia pharmacy to adjust insulin dose. CAD/hypertension/CHF/anasarca currently appears to be at base lone diuretics are on hold as well as IVF Hypothyroidism--continue levothyroxine sodium at 250 g by mouth daily. TSH was 4.8 COPD--continue Advair Diskus 250/50 one inhalation twice a day, Spiriva HandiHaler 1 inhalation every morning, and theophylline CR 600 mg by mouth at bedtime. GERD--change omeprazole 20 mg by mouth daily to pantoprazole 40 mg by mouth daily. AINSLEY/CKD nephrology consult appreciated Hold IVF Hold nephrotoxics and diuretics monitor renal function 1.4 cm thickened endometrium and probable history of endometrial polyp in the past [facility] consult appreciated The plan would be to have her follow up with Dr. Becker ( her doctor in the past), for the hysterosonogram upon discharged Suspected liver cirrhosis with manifestations of portal hypertension/ splenomegaly and varices formation on CT abdomen 7 mm right lower lobe nodule and a possible right and middle lobe nodule which can be followed up as an out patient 3. Mild endometrial thickening in a postmenopausal patient. Correlation with postmenopausal bleeding is recommended as well as follow-up pelvic ultrasound. Mild aortoiliac and inguinal lymphadenopathy. This could be reactive given lower extremity cellulitis although a neoplastic process could appear similar. A short-term follow-up CT of the abdomen and pelvis in 2 months is recommended. 2.8 cm right adrenal nodule which likely reflects an adenoma Afib currently rate controlled continue xarelto
[2016-09-25] MEDS: TRAMADOL HCL 50 MG TAB PO PRN (20:59)
[2016-09-25] MEDS: THEOPHYLLINE 300MG EXTENDED REL TAB PO SCH (21:01)
[2016-09-25 22:58] VITALS: BP 129/72; PULSE 77; TEMP 36.7; O2SAT 97
[2016-09-26] VITALS: O2SAT 97
[2016-09-26] MEDS: DAPTOmycin IV 550 MG in SODIUM CHLORIDE 0.9% 50ML 50 ML IV SCH (00:52)
[2016-09-26] MEDS: PIPERACILL/TAZOBAC IV 4.5 GM in DEXTROSE 5% 100ML IV SCH ×2 (00:52→08:42)
[2016-09-26] MEDS: HYDROCODONE/ACETAMOPHEN 5/325MG TAB PO PRN ×2 (00:53→15:18)
[2016-09-26] MEDS: LEVOTHYROXINE 50 MCG TAB PO SCH (05:35)
[2016-09-26] MEDS: LEVOTHYROXINE 200 MCG TAB PO SCH (05:35)
[2016-09-26 06:13] LABS: BUN/CREATININE RATIO 14.8 (10-20); CALCIUM 8.7 mg/dl (8.5-10.1); CREATININE 1.3 mg/dl (0.60-1.20); MAGNESIUM 2.1 mg/dl (1.8-2.4)
[2016-09-26 07:41] VITALS: BP 147/74; PULSE 86; TEMP 36.7; O2SAT 100
[2016-09-26 08:33] LABS: HEMATOCRIT 24.8 % (37-47); MEAN CELL VOLUME 90.2 fL (80-100); MEAN CORPUSCULAR HEMOGLOBIN 29.5 pg (25-34); MEAN CORPUSCULAR HGB CONC 32.7 g/dl (32-36); MEAN PLATELET VOLUME 8.4 fL (7.4-10.4); PLATELET COUNT 229 K/uL (130-400); RED BLOOD COUNT 2.75 M/uL (4.2-5.4); WHITE BLOOD COUNT 10.94 K/uL (4.8-10.8)
[2016-09-26] MEDS: FERROUS GLUCONATE 324 MG TAB PO SCH ×2 (08:42→17:08)
[2016-09-26] MEDS: FLUTICASONE/SALMETEROL 250/50 (ADVAIR) 14 PUFF/1 INHALER INH SCH (08:42)
[2016-09-26] MEDS: POTASSIUM CHLORIDE 20 MEQ TABCR PO SCH (08:43)
[2016-09-26] MEDS: DILTIAZEM HCL 240 MG CAPCR PO SCH (08:43)
[2016-09-26] MEDS: SPIRONOLACTONE 25 MG TAB PO SCH (08:44)
[2016-09-26] MEDS: PANTOprazole SOD 40 MG TAB PO SCH (08:44)
[2016-09-26] MEDS: TIOTROPIUM BROMIDE 5 PUFF/90 MCG INH INH SCH (08:44)
[2016-09-26] MEDS: EUCERIN CR 120 GM JAR EXT SCH (08:44)
[2016-09-26 08:45] VITALS: O2SAT 100
[2016-09-26] MEDS: INSULIN ASPART 100 UNITS/ML 3 ML PEN SC SCH ×2 (08:55→13:04)
[2016-09-26] MEDS: INSULIN GLARGINE SOLOSTAR 100 UNITS/ML 3 ML PEN SC SCH (08:55)
[2016-09-26 08:58] LABS: BUN/CREATININE RATIO 15.3 (10-20); CALCIUM 9.1 mg/dl (8.5-10.1); CREATININE 1.2 mg/dl (0.60-1.20)
[2016-09-26 09:22] LABS: BASO % 0.2 %; BASO ABS # 0.02 K/uL (0-0.2); COMPLETE YES; EOS % 3.1 %; IG% 9.3 %; LYMPH % 8.4 %; LYMPH ABS # 0.92 K/uL (1.2-3.4); MONO % 7.8 %; NEUT % 71.2 %; POLYCHROMASIA 1+
[2016-09-26 11:02] VITALS: BP 120/70; PULSE 82; TEMP 36.8; O2SAT 98
[2016-09-26] MEDS ORDERED: AMOX875T PO (12:43)
[2016-09-26] MEDS ORDERED: MCRK20 PO (12:43)
[2016-09-26] MEDS ORDERED: FURO20TA PO (12:43)
[2016-09-26] MEDS ORDERED: LCTX PO (12:43)
[2016-09-26] MEDS ORDERED: INSU3INJ2 SQ (12:43)
[2016-09-26] MEDS ORDERED: HYDR-5688 PO (12:43)
[2016-09-26] MEDS ORDERED: SPR25 PO (12:43)
[2016-09-26] MEDS ORDERED: TRAM-10 PO (12:43)
--- NOTE | 2016-09-26 12:46 | Discharge Instructions ---
Discharge Instructions Admission Admission Date: Sep 20, 2016 at 02:51 Admission Diagnosis: Cellulitis Of Left Lower Leg. Discharge Care Plan - Problem: Medical Problems: (1) Cellulitis of left lower leg (2) Leukocytosis (3) Sepsis (4) AINSLEY Care Plan - Goal(s): Improve function Care Plan - Instructions: Recommended Home Diet: 1800 Wilfred Wt Reduction, AHA Phase I (2gmNa/LoCho), Diabetic AHA Phase I VTE Core Measure Inpt VTE Proph given/why not?: Other Anticoagulation Follow Up Follow-Up: follow up with wound care clinic as scheduled Continue home O2 continue home PT/OT and visiting nurse for insulin and medication review Laboratory Results Test Results: Hemoglobin A1c Test 09/20/16 14:53 Range/Units Estimated Average Glucose 105 mg/dl Hemoglobin A1c 5.3 4.5-5.6 % Lipid Panel Test 08/19/16 05:47 Range/Units Triglycerides Level 170 H 0-150 mg/dl Cholesterol Level 125 0-200 mg/dl HDL Cholesterol 48 mg/dl Cholesterol/HDL Ratio 2.6 LDL Cholesterol, Calculated 43 mg/dl Shen Sandhu Recommendations: Call your doctor if: * Temperature above 101 degrees * Pain not relieved by pain medicine ordered * There is increased drainage or redness from any incision * You have any unanswered questions or concerns. Your Doctors Instructions noted above were prepared by provider Kelechi Kelley.
--- NOTE | 2016-09-26 13:10 | Discharge Summary ---
Discharge Summary Admission Date: Sep 20, 2016 at 02:51 Discharge Date: Sep 26, 2016 Discharge Disposition: Home with services Problems/Secondary Diagnoses: Left foot diabetic cellulitis/abscess S/P I&D and wound VAC Diabetes mellitus--continue Novolin 70/30 twice a day, CAD/hypertension/CHF/anasarca Hypothyroidism COPD GERD AINSLEY/CKD 1.4 cm thickened endometrium and probable history of endometrial polyp in the past Veterinary Receptionist consult appreciated The plan would be to have her follow up with Dr. Becker ( her doctor in the past), for the hysterosonogram upon discharged Suspected liver cirrhosis with manifestations of portal hypertension/ splenomegaly and varices formation on CT abdomen 7 mm right lower lobe nodule and a possible right and middle lobe nodule which can be followed up as an out patient Mild aortoiliac and inguinal lymphadenopathy. This could be reactive given lower extremity cellulitis although a neoplastic process could appear similar. A short-term follow-up CT of the abdomen and pelvis in 2 months is recommended. 2.8 cm right adrenal nodule which likely reflects an adenoma Afib Immunizations: Have You Had Influenza Vaccine: Unknown Influenza Vaccine Date: Jun 23, 2013 History of Tetanus Vaccine?: Unknown History of Pneumococcal: Unknown Pneumococcal Date: Jun 23, 2011 History of Hepatitis B Vaccine: Unknown Medication Reconciliation New Medications: Amoxicillin & Pot Clavulanate (Augmentin 875-125 mg) 1 Tab Tab 1 TAB PO BID for 14 Days, #28 TAB Furosemide (Lasix) 20 Mg Tab 1 TAB PO DAILY for 30 Days, #30 TAB 5 Refills Insulin Isophane & Reg (Human) (Humulin 70/30 Kwikpen (70-30) 100 Unit/ml) 1 Inj Inj 65 UNITS SQ BIDM for 30 Days, #1 BOX 3 Refills Lactobacillus Acidophilus (Lactinex) Tab 2 TAB PO TID for 20 Days, #60 TAB Hydrocodone/Acetaminophen 5MG/325MG ([place] 5MG/325MG) Tab 1 TAB PO Q6H PRN for mod Pain for 30 Days, #30 TAB PRN PAIN Potassium Chloride (Klor-Con M20) 20 Meq Tabcr 20 MEQ PO DAILY for 30 Days, #30 TAB 2 Refills Spironolactone (Spironolactone) 25 Mg Tab 25 MG PO QAM for 30 Days, #30 TAB Changed Medications: Tramadol (Ultram) 50 Mg Tab 50 MG PO Q8H PRN for Pain for 30 Days, #30 TAB (Changed from: Q6H) Continued Medications: Acetaminophen (Tylenol) 325 Mg Tab 650 MG PO Q8H PRN for mild pain or fever, TAB Digoxin (Digoxin) 0.125 Mg Tab 0.125 MCG PO QAM Diltiazem Hcl Cd (Cardizem Cd *) 240 Mg Capcr 240 MG PO QAM Emollient (Eucerin) 1 Lot Lot 1 APPLN TOP BID apply to legs Ferrous Gluconate (Ferrous Gluconate) 325 Mg Tab 650 MG PO BID Fluticasone Prop/Salmeterol (Advair Diskus 250/50 Mcg *) Aerp 1 PUFF INH BID Levothyroxine Sodium (Levoxyl) 200 Mcg Tab 200 MCG PO DAILY, TAB TAKE WITH 50MCG = 250MCG DAILY. Levothyroxine Sodium (Levothyroxine Sodium) 50 Mcg Tab 50 MCG PO DAILY, TAB TAKE WITH 200MCG = 250MCG DAILY. Magnesium Oxide (Mag-Ox) 400 Mg Tab 400 MG PO BID, TAB Nitroglycerin (Nitrostat) 0.4 Mg Tab 0.4 MG UT PRN, BTL NEEDED FOR CHEST PAIN : ONE TABLET, UNDER THE TONGUE, EVERY 5 MINUTES UP TO 3 DOSES. Omeprazole (Prilosec) 20 Mg Cap 20 MG PO DAILY, CAP Oxygen (Oxygen) Gas 3 LITERS NA CONTINOUS Polyethylene Glycol 3350 (Miralax) 1 Pow Pow 17 GM PO DAILY PRN for Constipation, #527 GM Rivaroxaban (Xarelto) 20 Mg Tab 20 MG PO DAILYBD, TAB WITH EVENING MEAL Theophylline (Theophylline Cr) 300 Mg Tab 600 MG PO HS Tiotropium [place] (Spiriva Handihaler) 18 Mcg/ Aerp 1 CAP INH DAILY, INHALER Discontinued Medications: Furosemide (Furosemide) 40 Mg Tab 80 MG PO BID Insulin Human Isophan/Regular (Novolin 70/30) Inj 90 UNITS SC BID, BTL Metolazone (Zaroxolyn) 2.5 Mg Tab 2.5 MG PO MWF, TAB 30 MIN PRIOR TO MORNING FUROSEMIDE Potassium Ext Rel (Klor-Con) 20 Meq Tabcr 40 MEQ PO QID, TAB Discharge Exam Review of Systems: Constitutional: No chills, No fatigue, No fever, No problem reported, No sweats, No weakness, No weight loss Eyes: No diplopia, No discharge, No eye pain, No problem reported, No redness, No worsening of vision ENT: No dental problems, No hearing loss, No nasal symptoms, No problem reported, No sore throat, No tinnitus, No trouble swallowing, No unusual epistaxis Respiratory: No cough, No dyspnea at rest, No dyspnea on exertion, No hemoptysis, No problem reported, No shortness of breath, No sputum, No wheezing Cardiovascular: No PND, No chest pain, No claudication, No edema, No orthopnea, No palpitations, No problem reported Abdomen: No GI bleeding, No constipation, No diarrhea, No nausea, No pain, No problem reported, No vomiting Musculoskeletal: + joint pain, + swelling, No calf pain, No muscle pain, No problem reported Genitourinary - Female: No dysmenorrhea, No dysuria, No hematuria, No menorrhagia, No metrorrhagia, No , No problem reported, No rash, No urinary frequency, No urinary incontinence, No urinary retention, No urinary urgency, No vaginal bleeding, No vaginal discharge, No vaginal itching, No vulvodynia Genitourinary - Male: No dysuria, No hematuria, No impotence, No lesions, No penile discharge, No problem reported, No urinary frequency, No urinary hesitancy, No urinary incontinence, No urinary retention, No urinary urgency Neurologic: No balance problems, No memory loss, No numbness/tingling, No paralysis, No problem reported, No vertigo, No weakness Psychiatric: No anhedonism, No anxiety, No depression symptoms, No insomnia , No problem reported, No substance abuse Endocrine: No excessive thirst, No excessive urination, No fatigue, No problem reported Hematologic / Lymphatic: No abnormal bleeding/bruising, No clotting problems , No night sweats, No problem reported, No swollen lymph nodes Integumentary: No bleeding, No color change, No itch, No new/changing skin lesions, No problem reported, No rash Physical Exam: General Appearance: no apparent distress Eyes: normal inspection, PERRL, EOMI ENT: normal ENT inspection, hearing grossly normal, TMs normal Neck: supple Respiratory/Chest: chest non-tender, lungs clear, normal breath sounds, no respiratory distress, no accessory muscle use Cardiovascular: regular rate, rhythm, no edema, no gallop, no murmur Abdomen / GI: normal bowel sounds, non tender, soft, no organomegaly, no pulsatile mass, normal rectal exam Extremities: + pertinent finding (wound vac in place, wound edges in the foot looks clean) Neurologic/Psychiatric: automatic maintainer II-XII nml as tested, no motor/sensory deficits , alert, normal mood/affect, normal reflexes Skin: normal color, warm/dry, no rash Hospital Course 71 years old woman with Hx of diabetes and left lower Ext cellulitis S/P wound vac presented with AINSLEY/CKD with worsening cellulitis she was admitted to hospital [facility] and found to have the current problems Left foot diabetic cellulitis/abscess S/P I&D and wound VAC consulted wound care and ID started Abx daptomycin 550 mg IV daily, and Zosyn 4.5 G IV every 8 hours. ( last admission culture of ulcer grew group B strep and MRSA last admission. She was discharged on a 4-week course of oral doxycycline and Augmentin from 08/14) this admission she was on Dapto/zosyn till discharge, wound grew B strept as per ID upon d/c can change to po augmentin 875mg po bid with food for 14 days Diabetes mellitus--continued Novolin 70/30 twice a day upon discharge but was decreased to 65 uints BID as her HgbA1C was 5.3, she was also switched to insulin pen, Had multiple episodes of hypoglycemia CAD/hypertension/CHF/anasarca diuretics were hold required IVF upon discharge lasix was decreased from 40mg BID prior to admission to 20mg po daily she was started on aldactone 25mg po daily Hence her lasix was decreased , potassium supplement also was decreased Hypothyroidism--continue levothyroxine sodium at 250 g by mouth daily. TSH was 4.8 COPD--continue Advair Diskus 250/50 one inhalation twice a day, Spiriva HandiHaler 1 inhalation every morning, and theophylline CR 600 mg by mouth at bedtime. GERD--change omeprazole 20 mg by mouth daily to pantoprazole 40 mg by mouth daily. AINSLEY/CKD nephrology consult appreciated needed IVF nephrotoxics and diuretics dose decreased upon discharge monitor renal function 1.4 cm thickened endometrium and probable history of endometrial polyp in the past Veterinary Receptionist consult appreciated The plan would be to have her follow up with Dr. Becker ( her doctor in the past), for the hysterosonogram upon discharged Suspected liver cirrhosis with manifestations of portal hypertension/ splenomegaly and varices formation on CT abdomen 7 mm right lower lobe nodule and a possible right and middle lobe nodule which can be followed up as an out patient, was accidentally found on CT scan was accidentally found on CT scan Mild aortoiliac and inguinal lymphadenopathy. This could be reactive given lower extremity cellulitis although a neoplastic process could appear similar. A short-term follow-up CT of the abdomen and pelvis in 2 months is recommended. 2.8 cm right adrenal nodule which likely reflects an adenoma was accidentally found on CT scan Afib currently rate controlled continued xarelto was found today to be stable enough for discharge home health will follow her up at home This includes examination of the patient, discharge planning, medication reconciliation, and communication with other providers. Discharge Instructions Please refer to the electronic Patient Visit Report (Discharge Instructions) for additional information.
[2016-09-26 13:12] VITALS: O2SAT 98
[2016-09-26] MEDS ORDERED: insu (13:33)
[2016-09-26] MEDS ORDERED: NVLGI7030 SC (13:35)
[2016-09-26] MEDS ORDERED: FERR325T74 PO (13:37)
--- NOTE | 2016-09-26 14:22 | CONSULTATION REPORT ---
DATE OF CONSULTATION: 09/20/2016 DATE OF CONSULTATION: 09/20/2016. SUBJECTIVE: The patient is well known to the wound clinic and was just recently seen in our office 9 days prior. The patient was recently admitted for cellulitis of the left lower extremity as well as a Castaneda grade 2 diabetic foot ulcer to the left foot. The patient states that there was increased swelling and redness which occurred which prompted her for along with some subsequent falls to [facility]. The patient currently denies any significant pain, fever, chills or night sweats. The patient denies any other systemic complaints. OBJECTIVE: The patient's vital signs were reviewed and found to be unremarkable. The patient is afebrile. The left extremity reveals the presence of a deteriorated diabetic foot ulcer on the plantar surface of the left foot now measuring 4.2 x 4.8 x 2.4 cm. This site does probe to bone. There is no significant central slough or active drainage present. There is increased swelling and erythema noted. ASSESSMENT: Castaneda grade 2 diabetic foot ulcer, left foot with deterioration and associated cellulitis of the left lower extremity. PLAN: At this time, patient is currently receiving antibiotic therapy. There is no indication for any further debridement of this ulcerative site at this time. The patient will have the wound VAC maintained, black foam 125 mm of negative pressure, wound VAC change Friday, Friday, Friday. The patient will continue to be monitored during her hospitalization and reevaluated as indicated. The patient will be also following on an outpatient basis upon discharge.
[2016-09-26 14:57] VITALS: BP 120/70; PULSE 82; TEMP 36.8; O2SAT 98
[2016-09-26 15:58] VITALS: Ht 162.6 cm; Wt 102.3 kg
[2016-09-26] MEDS: RIVAROXABAN TAB 15 MG TAB PO SCH (17:08)
[2016-10-20] MEDS ORDERED: LCTX PO (17:19)
[2016-10-20] MEDS ORDERED: HYDR-5688 PO (17:19)
[2016-10-20] MEDS ORDERED: HPRIS5M SQ (17:19)
[2016-10-20] MEDS ORDERED: NVLGIPEN SC (17:19)
[2016-10-20] MEDS ORDERED: SULF-183 PO (17:19)
[2016-10-20] MEDS ORDERED: TRAM-10 PO (17:19)
[2016-10-20] MEDS ORDERED: INSDGIPEN SC (17:19)
[2016-10-21] MEDS ORDERED: AMOX1TAB43 PO (10:37)
[2016-10-21] MEDS ORDERED: ENOX80IN SQ (10:55)
[2016-10-21] MEDS ORDERED: NVLGI7030 SC (14:42)
[2016-11-05] MEDS ORDERED: AMOX500T PO (13:08)
[2016-11-25] MEDS ORDERED: LINE1TAB6 PO (16:02)
[2016-11-25] MEDS ORDERED: LEVO1TAB33 PO (16:02)
[2017-01-02] MEDS ORDERED: LNX25 PO (14:36)
[2017-01-02] MEDS ORDERED: LVQ500 PO (14:36)
[2017-01-02] MEDS ORDERED: LSX40 PO (14:36)
[2017-01-02] MEDS ORDERED: FRRS300 PO (14:36)
[2017-01-02] MEDS ORDERED: NRN600 PO (14:36)
[2017-01-21] MEDS ORDERED: INSDGIPEN SC (12:54)
[2017-01-22] MEDS ORDERED: HYDR-3983 PO (15:45)
[2017-01-22] MEDS ORDERED: LORA-741 PO (15:45)
== END 2016-09-26 18:20 | disposition home health service (06) | DRG 872 ==
LOC: ENRESERVDT → ENRESERVTM → EDBD 22:43 → C.EDB 22:44 → C.MS2W 09-20 02:51 → EDBEDREQ 09-20 10:20 → C.2T 09-20 12:34 → C.4E 09-24 19:55
PROVIDERS: ADMIT Hospitalist; ATTEND Internal Medicine
DX: A40.1 Sepsis due to streptococcus, group B (principal); L03.116 Cellulitis of left lower limb; K76.6 Portal hypertension; N17.9 Acute kidney failure, unspecified; I13.0 Hypertensive heart and chronic kidney disease with heart failure and stage 1 through stage 4 chronic kidney disease, or unspecified chronic kidney disease; E03.9 Hypothyroidism, unspecified; G47.33 Obstructive sleep apnea (adult) (pediatric); Z87.891 Personal history of nicotine dependence; E87.6 Hypokalemia; J44.9 Chronic obstructive pulmonary disease, unspecified; K21.9 Gastro-esophageal reflux disease without esophagitis; E11.22 Type 2 diabetes mellitus with diabetic chronic kidney disease; N18.3 Chronic kidney disease, stage 3 (moderate); E66.9 Obesity, unspecified; Z68.38 Body mass index [BMI] 38.0-38.9, adult; E11.21 Type 2 diabetes mellitus with diabetic nephropathy; E86.0 Dehydration; D63.1 Anemia in chronic kidney disease; R19.7 Diarrhea, unspecified; R91.1 Solitary pulmonary nodule; Z78.0 Asymptomatic menopausal state; E88.09 Other disorders of plasma-protein metabolism, not elsewhere classified; E11.65 Type 2 diabetes mellitus with hyperglycemia; E11.649 Type 2 diabetes mellitus with hypoglycemia without coma; I48.91 Unspecified atrial fibrillation; B95.62 Methicillin resistant Staphylococcus aureus infection as the cause of diseases classified elsewhere; K74.60 Unspecified cirrhosis of liver; I25.10 Atherosclerotic heart disease of native coronary artery without angina pectoris; I50.9 Heart failure, unspecified; D50.9 Iron deficiency anemia, unspecified; E11.621 Type 2 diabetes mellitus with foot ulcer; L97.509 Non-pressure chronic ulcer of other part of unspecified foot with unspecified severity; F41.9 Anxiety disorder, unspecified; R26.9 Unspecified abnormalities of gait and mobility; R47.1 Dysarthria and anarthria; Z79.4 Long term (current) use of insulin; Z99.81 Dependence on supplemental oxygen; Z79.899 Other long term (current) drug therapy; Z88.8 Allergy status to other drugs, medicaments and biological substances; Z87.01 Personal history of pneumonia (recurrent); Z90.49 Acquired absence of other specified parts of digestive tract; Z82.49 Family history of ischemic heart disease and other diseases of the circulatory system

== ENCOUNTER → 2016-10-11 | Outpatient (CLI) | payer BC ==
[~2016-10-11] MED LIST changes: +ADVIN25/60 INH; +AMOX500T PO; +AMOX875T PO; +ASCO500T16 PO; +ATV5 PO; +CYM20 PO; +DILT240C75 PO; -DXY100 PO; +ENOX80IN SQ; +FERR325T18 PO; +FRRS300 PO; +FURO20TA PO; +HPRIS5M SQ; +HYDR-3983 PO; +IMD/2 PO; +INSDGIPEN SC; -INSU70IN2 SC; +IPRASOL4 INH; +LCTX PO; +LEVO1TAB33 PO; +LEVO200T PO; +LEVO50TA6 PO; +LINE1TAB6 PO; +LNX25 PO; +LORA-741 PO; +LVQ500 PO; +MCRK20 PO; -METO2.5T PO; +MRPSR15 PO; +NRN300 PO; +NRN600 PO; +NTRGSL/4 UT; -NTRGSL4 SL; +NVLGI7030 SC; +NVLGIPEN SC; -POTA20TA16 PO; +SPR25 PO; +SPRIN/30 INH; +SULF-183 PO; +XRL10 PO; +insu
--- NOTE | 2016-10-11 16:56 | DIAGNOSTIC IMAGING REPORT ---
LEFT FOOT MIN 3 VIEWS ROUTINE CLINICAL HISTORY: S91.309A infection. Wound. COMPARISON: None. DISCUSSION: Findings of generalized deterioration of the osseous structures of the ankle and foot suggesting a Charcot type joint generalized soft tissue edema. Air within the soft tissues inferior to the foot and ankle. Soft tissue infection must be considered. No well-defined evidence for osteomyelitis. Findings of old fractures of the calcaneus and fifth metatarsal. Generalized degenerative changes throughout. IMPRESSION: 1. Neuropathic type joint. 2. Soft tissue edema and air within the medial as well as inferior aspect of the foot consistent with open wounds and soft tissue cellulitis. 3. No evidence for osteomyelitis Electronically signed by: Castillo Thompson M.D. 10/11/2016 4:55 PM Dictated Date/Time: 10/11/2016 4:53 PM
== END | disposition home or self-care (01) ==
LOC: C.RAD 16:37
PROVIDERS: ATTEND Internal Medicine
DX: S91.309A Unspecified open wound, unspecified foot, initial encounter (principal); X58.XXXA Exposure to other specified factors, initial encounter; R60.9 Edema, unspecified

== ENCOUNTER 2016-10-15 12:09 | Inpatient (IN) | payer BC, OTHER ==
[~2016-10-15] VITALS: Ht 162.6 cm; Wt 96.8 kg
[2016-10-15] VITALS (10 sets, daily range): BP systolic 107–136; BP diastolic 49–70; PULSE 76–101; TEMP 37.1–38.2; O2SAT 92–100; BMI 36.6
[~2016-10-15 12:09] MED LIST changes: -ADVIN25/60 INH; -AMOX1TAB43 PO; -AMOX500T PO; -AMOX875T PO; -ASCO500T16 PO; -ATV5 PO; -CYM20 PO; -DILT240C75 PO; -ENOX80IN SQ; -FERR325T18 PO; -FRRS300 PO; -HPRIS5M SQ; -HYDR-3983 PO; -IMD/2 PO; -INSDGIPEN SC; -IPRASOL4 INH; -LEVO1TAB33 PO; -LEVO200T PO; -LINE1TAB6 PO; -LNX25 PO; -LORA-741 PO; -LSX40 PO; -LVQ500 PO; -MRPSR15 PO; -NRN300 PO; -NRN600 PO; -NVLGIPEN SC; -SPRIN/30 INH; -SULF-183 PO; -XRL10 PO
[2016-10-15] MEDS ORDERED: DILT240C75 PO (12:55)
[2016-10-15] MEDS ORDERED: LEVO200T PO (12:55)
[2016-10-15] MEDS ORDERED: SPRIN/30 INH (12:55)
[2016-10-15] MEDS ORDERED: FERR325T18 PO (12:55)
[2016-10-15] MEDS ORDERED: ADVIN25/60 INH (12:55)
[2016-10-15] MEDS ORDERED: SODIUM CHLORIDE 0.9% 500ML 500 ML IV STA (13:02)
[2016-10-15] MEDS ORDERED: ONDANSETRON INJ 2 MG/ML 2 ML VIAL IV STA (13:07)
[2016-10-15] MEDS ORDERED: MoRPHine SULFATE 4 MG/ML 1 ML CARP\\VIAL IM STA (13:07)
[2016-10-15] MEDS ORDERED: DAPTOmycin IV 600 MG in SODIUM CHLORIDE 0.9% 50ML 50 ML IV STA (13:29)
[2016-10-15] MEDS ORDERED: PIPERACILLIN/TAZOBACTAM 4.5 GM/100ML D5W IV STA (13:29)
[2016-10-15] MEDS ORDERED: MoRPHine SULFATE 4 MG/ML 1 ML CARP\\VIAL IV STA (13:55)
[2016-10-15 13:56] LABS: ISTAT CREATININE 1.2 mg/dl (0.6-1.3); ISTAT HEMOGLOBIN 7.1 g/dl (12.0-16.0); ISTAT IONIZED CALCIUM 1.12 mmol/l (1.12-1.32)
[2016-10-15 14:01] LABS: HEMATOCRIT 22.3 % (37-47); MEAN CELL VOLUME 84.2 fL (80-100); MEAN CORPUSCULAR HEMOGLOBIN 27.2 pg (25-34); MEAN CORPUSCULAR HGB CONC 32.3 g/dl (32-36); MEAN PLATELET VOLUME 7.9 fL (7.4-10.4); PLATELET COUNT 261 K/uL (130-400); RED BLOOD COUNT 2.65 M/uL (4.2-5.4); WHITE BLOOD COUNT 15.09 K/uL (4.8-10.8)
[2016-10-15 14:20] LABS: COMPLETE YES; EOS % 0.2 %; IG% 0.4 %; INR 1.4 (0.9-1.1); LYMPH % 1.8 %; LYMPH ABS # 0.27 K/uL (1.2-3.4); MONO % 4.6 %; PARTIAL THROMBOPLASTIN RATIO 1.5; POLYCHROMASIA 1+; PROTHROMBIN TIME (PATIENT) 14.9 SECONDS (9.0-12.0)
[2016-10-15 14:26] LABS: ALT/SGPT 6 U/L (12-78); AST/SGOT 8 U/L (15-37); BLOOD UREA NITROGEN 14 mg/dl (7-18); BUN/CREATININE RATIO 12.3 (10-20); CALCIUM 8.9 mg/dl (8.5-10.1); CARBON DIOXIDE 26 mmol/L (21-32); CHLORIDE 95 mmol/L (98-107); GLUCOSE 90 mg/dl (70-99); POTASSIUM 3.9 mmol/L (3.5-5.1); SODIUM 133 mmol/L (136-145)
--- NOTE | 2016-10-15 14:28 | EMERGENCY ROOM VISIT NOTE ---
History First contact with patient: 12:52 Chief Complaint: WOUND INFECTION Stated Complaint: FOOT WOUND History of Present Illness The patient is a 71 year old female who presents to the Emergency Room via ambulance with complaints of "foot wound". Patient states that she has a painful wound to the left foot of which she sees [facility] wound center as well as Dr. Etienne. She states that today she talked to him, the nurse at at Dr. Etienne's office who then talked with the wound care center and it was suggested that the patient should be in the hospital because of the pain. She notes that her left leg, particularly left foot is very painful and she rates the pain as severe. She has had a wound on the left foot for the past 1-2 months and was told it is down to the bone. She currently has finished her antibiotics and is out of them. She is waiting up on culture results for further antibiotics. She has felt warm, and chills despite warming temperature. She denies any chest pain, shortness of breath, trouble breathing , abdominal pain. She was recently admitted and discharged for sepsis. Review of Systems A complete 10-point Review of Systems was discussed with the patient, with pertinent positives and negatives listed in the History of Present Illness. All remaining Review of Systems questions can be considered negative unless otherwise specified. Past Medical/Surgical History Medical Problems: (1) AINSLEY (acute kidney injury) (2) Ambulatory dysfunction (3) Ambulatory dysfunction (4) Anemia (5) CHF (congestive heart failure) (6) Cholecystectomy (7) Chronic congestive heart failure (8) Chronic obstructive lung disease (9) CKD (chronic kidney disease) stage 3, GFR 30-59 ml/min (10) COPD exacerbation (11) Diabetes mellitus (12) History of anxiety (13) History of hypokalemia (14) Hypokalemia (15) Hypothyroidism (16) Obstructive sleep apnea (17) Open wound (18) PNA (pneumonia) (19) Septicemia due to group B Streptococcus (20) Shortness of breath Family History Heart disease Social History Smoking Status: Former Smoker Alcohol Use: none Drug Use: none Marital Status: Housing Status: lives with family, [employer] Occupation Status: disabled Current/Historical Medications Scheduled Digoxin (Digoxin), 0.125 MCG PO QAM Diltiazem Hcl Extended Release (Diltiazem Hcl), 240 MG PO QAM Emollient (Eucerin), 1 APPLN TOP BID Ferrous Gluconate (Ferrous Gluconate), 324 MG PO DAILY Fluticasone Prop/Salmeterol (Advair Diskus 250/50 60 Dose), 1 PUFF INH BID Furosemide (Lasix), 1 TAB PO DAILY Insulin Aspart 70/30 (Novolog Mix 70/30), 65 UNITS SC BIDM Lactobacillus Acidophilus (Lactinex), 2 TAB PO TID Levothyroxine Sodium (Levothyroxine Sodium), 50 MCG PO DAILY Levothyroxine Sodium (Synthroid), 200 MCG PO DAILY Magnesium Oxide (Mag-Ox), 400 MG PO BID Nitroglycerin (Nitrostat), 0.4 MG UT PRN Omeprazole (Prilosec), 20 MG PO DAILY Oxygen (Oxygen), 3 LITERS NA CONTINOUS Potassium Chloride (Klor-Con M20), 20 MEQ PO DAILY Spironolactone (Spironolactone), 25 MG PO QAM Theophylline (Theophylline Cr), 600 MG PO HS Tiotropium [place] (Spiriva Handihaler), 1 CAP INH DAILY Scheduled PRN Acetaminophen (Tylenol), 650 MG PO Q8H PRN for mild pain or fever Hydrocodone/Acetaminophen 5MG/325MG ([place] 5MG/325MG), 1 TAB PO Q6H PRN for mod Pain Polyethylene Glycol 3350 (Miralax), 17 GM PO DAILY PRN for Constipation Tramadol (Ultram), 50 MG PO Q8H PRN for Pain Allergies Coded Allergies: Duloxetine (Verified Adverse Reaction, Mild, DIZZINESS, 10/15/16) Indigotindisulfonate (Verified Adverse Reaction, Unknown, "spaced out", 10/15/16) Physical Exam Vital Signs Date Time Temp Pulse Resp B/P Pulse Ox O2 Delivery O2 Flow Rate FiO2 10/15/16 12:57 Nasal Cannula 2.0 10/15/16 12:24 37.2 88 20 160/73 99 Room Air Physical Exam VITAL SIGNS - Vital signs and nursing notes were reviewed. Patient was noted to be afebrile, hypertensive at 160/73, not tachycardic and saturating well on room air at 99%. Upon my prompt entrance into the exam room the patient's O2 sat had dropped to 91% therefore she was placed upon stat oxygen nasal cannula which was titrated to 2-1/2-3 L. She did do well with this. GENERAL -71-year-old female appearing her stated age who is in no acute distress. Communicates well with provider and answers questions appropriately. SKIN - there is erythema of the left lower leg with bandage in place overlying an edematous foot. HEAD - NC/AT. EYES - Sclera anicteric. Palpebral conjunctiva pink and moist with no injection noted. MOUTH/OROPHARYNX - Without perioral cyanosis. LUNGS - Chest wall symmetric without accessory muscle use, intercostals retractions, or central cyanosis. Normal vesicular breath sounds CTA B/L. No wheezes, rales, or rhonchi appreciated. CARDIAC - RRR with S1/S2. No murmur, rubs, or gallops appreciated. Medical Decision & Procedures Laboratory Results 10/15/16 13:30 Red Blood Count 2.65, Mean Corpuscular Volume 84.2, Mean Corpuscular Hemoglobin 27.2, Mean Corpuscular Hemoglobin Concent 32.3, Mean Platelet Volume 7.9, Neutrophils (%) (Auto) 93.0, Lymphocytes (%) (Auto) 1.8, Monocytes (%) (Auto) 4.6, Eosinophils (%) (Auto) 0.2, Basophils (%) (Auto) 0.0, Neutrophils # (Auto) 14.04, Lymphocytes # (Auto) 0.27, Monocytes # (Auto) 0.69, Eosinophils # (Auto) 0.03, Basophils # (Auto) 0.00 10/15/16 13:30 Test 10/15/16 13:27 10/15/16 13:30 10/15/16 13:31 10/15/16 13:50 Bedside Lactic Acid Venous 1.16 mmol/L (0.90-1.70) White Blood Count 15.09 K/uL (4.8-10.8) Red Blood Count 2.65 M/uL (4.2-5.4) Hemoglobin 7.2 g/dL (12.0-16.0) Hematocrit 22.3 % (37-47) Mean Corpuscular Volume 84.2 fL (80-100) Mean Corpuscular Hemoglobin 27.2 pg (25-34) Mean Corpuscular Hemoglobin Concent 32.3 g/dl (32-36) Platelet Count 261 K/uL (130-400) Mean Platelet Volume 7.9 fL (7.4-10.4) Neutrophils (%) (Auto) 93.0 % Lymphocytes (%) (Auto) 1.8 % Monocytes (%) (Auto) 4.6 % Eosinophils (%) (Auto) 0.2 % Basophils (%) (Auto) 0.0 % Neutrophils # (Auto) 14.04 K/uL (1.4-6.5) Lymphocytes # (Auto) 0.27 K/uL (1.2-3.4) Monocytes # (Auto) 0.69 K/uL (0.11-0.59) Eosinophils # (Auto) 0.03 K/uL (0-0.5) Basophils # (Auto) 0.00 K/uL (0-0.2) RDW Standard Deviation 52.2 fL (36.4-46.3) RDW Coefficient of Variation 16.9 % (11.5-14.5) Immature Granulocyte % (Auto) 0.4 % Immature Granulocyte # (Auto) 0.06 K/uL (0.00-0.02) Polychromasia 1+ Prothrombin Time 14.9 SECONDS (9.0-12.0) Prothromb Time International Ratio 1.4 (0.9-1.1) Activated Partial Thromboplast Time 38.7 SECONDS (21.0-31.0) Partial Thromboplastin Ratio 1.5 Estimated GFR () 58.1 Estimated GFR (Non- 50.1 BUN/Creatinine Ratio 12.3 (10-20) Calcium Level 8.9 mg/dl (8.5-10.1) Aspartate Amino Transf (AST/SGOT) 8 U/L (15-37) Alanine Aminotransferase (ALT/SGPT) 6 U/L (12-78) Albumin 2.0 gm/dl (3.4-5.0) Bedside Hemoglobin 7.1 g/dl (12.0-16.0) Bedside Hematocrit 21 % (37-47) Bedside Sodium 131 mEq/L (135-144) Bedside Potassium 3.9 mEq/L (3.3-5.0) Bedside Chloride 93 mEq/L (101-112) Bedside Total CO2 24 mEq/l (24-31) Anion Gap 18.0 mmol/L (16-25) Bedside Blood Urea Nitrogen 13 mg/dl (7-18) Bedside Creatinine 1.2 mg/dl (0.6-1.3) Bedside Glucose (other) 99 mg/dl (70-99) Bedside Ionized Calcium ([place]) 1.12 mmol/l (1.12-1.32) Bedside Troponin I 0.000 ng/ml (0-0.045) [id number]-Type Natriuretic Peptide 2301 pg/ml (0-900) Medications Administered Medications (Trade) Dose Ordered Sig/Hans Route Start Time Stop Time Status Last Admin Dose Admin Ondansetron HCl (Zofran Inj) 4 mg NOW STAT IV 10/15/16 13:07 10/15/16 13:08 DC 10/15/16 13:07 4 MG Morphine Sulfate (MoRPHine SULFATE INJ) 4 mg NOW STAT IV 10/15/16 13:55 10/15/16 13:56 DC 10/15/16 13:55 4 MG Medical Decision Patient was seen and evaluated as above. After obtaining a thorough history and physical examination stat IV access was obtained and a CBC and a CMP, prothrombin time, PTT, blood culture, apply monitor, tenuous pulse ox, ED start oxygen, i-STAT, nothing by mouth, [id number] be RECREATION AIDE, lactic acid, troponin, half liter of normal saline, 4 mg of morphine, 4 g of Zofran secondary to subjective and objective initial findings. I then spoke with our pharmacist and discussed the patient's previous admission and cultures for concern that she may also be septic again. Patient continued to state "help me" when I would talk with her. She was given 4.5 mg of Zosyn, and 600 mg of daptomycin after pharmaceutical calculation. I then spoke with Dr. Kwok infectious disease at 1:35 PM who indicated I should place and infectious disease consult and can be seen by Dr. Tijerina who is currently in the hospital. This was placed because of the requirement of prescribing daptomycin with infectious disease consult. Case was discussed with my attending who also personally evaluated the patient. We do believe the patient would benefit from inpatient admission. CBC revealed leukocytosis of 15.9, hemoglobin of 7.2. The leukocytosis has decreased however the hemoglobin has worsened. Coagulation studies revealed an INR of 1.4. Sodium was decreased at 133, 4 was also low at 95. Total bilirubin was elevated with AST nail T being decreased. Alkaline phosphatase was elevated at 132. Troponin was negative. BNP was 2301. This workup was obtained due to the patient's saturation 71% on room air, and tachycardia at 140-150 bpm and concern for additional emergent causes. Blood cultures were also obtained. The case was discussed with the hospitalist who said he was familiar with the patient's case. Please refer to further documentation regarding the patient's stay. I do believe she'll benefit from inpatient admission. EKG revealed atrial fibrillation, rate of 91 bpm and when compared with EKG of September 19 revealed an incomplete right bundle-branch block has now replaced the right bundle branch block. This finding will not change current management. In evaluation treatment this patient following differential diagnoses were entertained: Sepsis, cellulitis, abscess, heart failure, HI, among others. Impression Primary Impression: Wound infection Additional Impressions: Afib Anemia chf exac, chronic resp failure Departure Information Dispostion Admitted as an inpatient Condition FAIR Referrals Oscar Etienne M.D. (PCP) Patient Instructions My [facility] Problem Qualifiers
--- NOTE | 2016-10-15 14:28 | EMERGENCY ROOM VISIT NOTE ---
History First contact with patient: 12:52 Chief Complaint: WOUND INFECTION Stated Complaint: FOOT WOUND History of Present Illness The patient is a 71 year old female who presents to the Emergency Room with complaints of Past Medical/Surgical History Medical Problems: (1) AINSLEY (acute kidney injury) (2) Ambulatory dysfunction (3) Ambulatory dysfunction (4) Anemia (5) CHF (congestive heart failure) (6) Cholecystectomy (7) Chronic congestive heart failure (8) Chronic obstructive lung disease (9) CKD (chronic kidney disease) stage 3, GFR 30-59 ml/min (10) COPD exacerbation (11) Diabetes mellitus (12) History of anxiety (13) History of hypokalemia (14) Hypokalemia (15) Hypothyroidism (16) Obstructive sleep apnea (17) Open wound (18) PNA (pneumonia) (19) Septicemia due to group B Streptococcus (20) Shortness of breath Family History Heart disease Social History Smoking Status: Former Smoker Alcohol Use: none Drug Use: none Marital Status: Housing Status: lives with family, residential Occupation Status: disabled Current/Historical Medications Scheduled Digoxin (Digoxin), 0.125 MCG PO QAM Diltiazem Hcl Extended Release (Diltiazem Hcl), 240 MG PO QAM Emollient (Eucerin), 1 APPLN TOP BID Ferrous Gluconate (Ferrous Gluconate), 324 MG PO DAILY Fluticasone Prop/Salmeterol (Advair Diskus 250/50 60 Dose), 1 PUFF INH BID Furosemide (Lasix), 1 TAB PO DAILY Insulin Aspart 70/30 (Novolog Mix 70/30), 65 UNITS SC BIDM Lactobacillus Acidophilus (Lactinex), 2 TAB PO TID Levothyroxine Sodium (Levothyroxine Sodium), 50 MCG PO DAILY Levothyroxine Sodium (Synthroid), 200 MCG PO DAILY Magnesium Oxide (Mag-Ox), 400 MG PO BID Nitroglycerin (Nitrostat), 0.4 MG UT PRN Omeprazole (Prilosec), 20 MG PO DAILY Oxygen (Oxygen), 3 LITERS NA CONTINOUS Potassium Chloride (Klor-Con M20), 20 MEQ PO DAILY Spironolactone (Spironolactone), 25 MG PO QAM Theophylline (Theophylline Cr), 600 MG PO HS Tiotropium [place] (Spiriva Handihaler), 1 CAP INH DAILY Scheduled PRN Acetaminophen (Tylenol), 650 MG PO Q8H PRN for mild pain or fever Hydrocodone/Acetaminophen 5MG/325MG ([place] 5MG/325MG), 1 TAB PO Q6H PRN for mod Pain Polyethylene Glycol 3350 (Miralax), 17 GM PO DAILY PRN for Constipation Tramadol (Ultram), 50 MG PO Q8H PRN for Pain Allergies Coded Allergies: Duloxetine (Verified Adverse Reaction, Mild, DIZZINESS, 10/15/16) Indigotindisulfonate (Verified Adverse Reaction, Unknown, "spaced out", 10/15/16) Physical Exam Vital Signs Date Time Temp Pulse Resp B/P Pulse Ox O2 Delivery O2 Flow Rate FiO2 10/15/16 12:57 Nasal Cannula 2.0 10/15/16 12:24 37.2 88 20 160/73 99 Room Air Medical Decision & Procedures Laboratory Results 10/15/16 13:30 Red Blood Count 2.65, Mean Corpuscular Volume 84.2, Mean Corpuscular Hemoglobin 27.2, Mean Corpuscular Hemoglobin Concent 32.3, Mean Platelet Volume 7.9, Neutrophils (%) (Auto) 93.0, Lymphocytes (%) (Auto) 1.8, Monocytes (%) (Auto) 4.6, Eosinophils (%) (Auto) 0.2, Basophils (%) (Auto) 0.0, Neutrophils # (Auto) 14.04, Lymphocytes # (Auto) 0.27, Monocytes # (Auto) 0.69, Eosinophils # (Auto) 0.03, Basophils # (Auto) 0.00 10/15/16 13:30 Test 10/15/16 13:27 10/15/16 13:30 10/15/16 13:31 10/15/16 13:50 Bedside Lactic Acid Venous 1.16 mmol/L (0.90-1.70) White Blood Count 15.09 K/uL (4.8-10.8) Red Blood Count 2.65 M/uL (4.2-5.4) Hemoglobin 7.2 g/dL (12.0-16.0) Hematocrit 22.3 % (37-47) Mean Corpuscular Volume 84.2 fL (80-100) Mean Corpuscular Hemoglobin 27.2 pg (25-34) Mean Corpuscular Hemoglobin Concent 32.3 g/dl (32-36) Platelet Count 261 K/uL (130-400) Mean Platelet Volume 7.9 fL (7.4-10.4) Neutrophils (%) (Auto) 93.0 % Lymphocytes (%) (Auto) 1.8 % Monocytes (%) (Auto) 4.6 % Eosinophils (%) (Auto) 0.2 % Basophils (%) (Auto) 0.0 % Neutrophils # (Auto) 14.04 K/uL (1.4-6.5) Lymphocytes # (Auto) 0.27 K/uL (1.2-3.4) Monocytes # (Auto) 0.69 K/uL (0.11-0.59) Eosinophils # (Auto) 0.03 K/uL (0-0.5) Basophils # (Auto) 0.00 K/uL (0-0.2) RDW Standard Deviation 52.2 fL (36.4-46.3) RDW Coefficient of Variation 16.9 % (11.5-14.5) Immature Granulocyte % (Auto) 0.4 % Immature Granulocyte # (Auto) 0.06 K/uL (0.00-0.02) Polychromasia 1+ Prothrombin Time 14.9 SECONDS (9.0-12.0) Prothromb Time International Ratio 1.4 (0.9-1.1) Activated Partial Thromboplast Time 38.7 SECONDS (21.0-31.0) Partial Thromboplastin Ratio 1.5 Estimated GFR () 58.1 Estimated GFR (Non- 50.1 BUN/Creatinine Ratio 12.3 (10-20) Calcium Level 8.9 mg/dl (8.5-10.1) Aspartate Amino Transf (AST/SGOT) 8 U/L (15-37) Alanine Aminotransferase (ALT/SGPT) 6 U/L (12-78) Albumin 2.0 gm/dl (3.4-5.0) Bedside Hemoglobin 7.1 g/dl (12.0-16.0) Bedside Hematocrit 21 % (37-47) Bedside Sodium 131 mEq/L (135-144) Bedside Potassium 3.9 mEq/L (3.3-5.0) Bedside Chloride 93 mEq/L (101-112) Bedside Total CO2 24 mEq/l (24-31) Anion Gap 18.0 mmol/L (16-25) Bedside Blood Urea Nitrogen 13 mg/dl (7-18) Bedside Creatinine 1.2 mg/dl (0.6-1.3) Bedside Glucose (other) 99 mg/dl (70-99) Bedside Ionized Calcium ([place]) 1.12 mmol/l (1.12-1.32) Bedside Troponin I 0.000 ng/ml (0-0.045) HK-Iwl-D-Type Natriuretic Peptide 2301 pg/ml (0-900) Medications Administered Medications (Trade) Dose Ordered Sig/Hans Route Start Time Stop Time Status Last Admin Dose Admin Ondansetron HCl (Zofran Inj) 4 mg NOW STAT IV 10/15/16 13:07 10/15/16 13:08 DC 10/15/16 13:07 4 MG Morphine Sulfate (MoRPHine SULFATE INJ) 4 mg NOW STAT IV 10/15/16 13:55 10/15/16 13:56 DC 10/15/16 13:55 4 MG Departure Information Referrals Oscar Etienne M.D. (PCP) Patient Instructions My [facility]
[2016-10-15 14:30] LABS: ALB/GLOB RATIO 0.4 (0.9-2); ALKALINE PHOSPHATASE 132 U/L (45-117)
[2016-10-15] MEDS ORDERED: NITROGLYCERIN 0.4 MG SL PER TAB CHARGE UT PRN (15:00)
[2016-10-15] MEDS ORDERED: ACETAMINOPHEN 325 MG TAB PO PRN (15:00)
[2016-10-15] MEDS ORDERED: ALUMINUM/MAGNESIUM/SIMETH (MAALOX MAX) 30 ML UDC PO PRN (15:15)
[2016-10-15] MEDS ORDERED: MAGNESIUM HYDROXIDE SUSP 30 ML UDC PO PRN (15:15)
[2016-10-15] MEDS ORDERED: POLYETHYLENE (MIRALAX) 17 GM PACK PO PRN ×2 (15:15→15:45)
[2016-10-15] MEDS ORDERED: ONDANSETRON INJ 2 MG/ML 2 ML VIAL IV PRN (15:15)
--- NOTE | 2016-10-15 15:31 | DIAGNOSTIC IMAGING REPORT ---
CHEST ONE VIEW PORTABLE CLINICAL HISTORY: Congestive failure COMPARISON STUDY: 09/19/2016 FINDINGS: The heart remains enlarged. There is cephalization of pulmonary vascular flow consistent with pulmonary venous hypertension. There is no lobar consolidation. There is no significant pleural fluid.[ IMPRESSION: Stable cardiomegaly and pulmonary venous hypertension Electronically signed by: Gennaro Coleman M.D. 10/15/2016 3:29 PM Dictated Date/Time: 10/15/2016 3:29 PM
[2016-10-15] MEDS ORDERED: GLUCOSE 10 TABS/TUBE PO PRN (16:00)
[2016-10-15] MEDS ORDERED: DEXTROSE 50% 50 ML SYR IV PRN (16:00)
[2016-10-15] MEDS ORDERED: FUROSEMIDE INJ 20 MG in SYRINGE 0 ML IV ONE (16:00)
[2016-10-15] MEDS ORDERED: GLUCOSE 40% GEL 15 GM TUBE PO PRN (16:00)
[2016-10-15] MEDS ORDERED: GLUCAGON FOR INJ 1 MG VIAL SQ PRN (16:00)
[2016-10-15] MEDS ORDERED: PIPERACILL/TAZOBAC CONSULT ACTIVE PRN (16:15)
--- NOTE | 2016-10-15 18:07 | HISTORY & PHYSICAL EXAMINATION ---
DATE OF ADMISSION: 10/15/2016 CHIEF COMPLAINT: Left foot infection. HISTORY OF PRESENT ILLNESS: This is a 71-year-old female who comes to Emergency Room complaining of left foot infection. The patient had multiple admissions for left foot infection and had a wound VAC placed before which she stopped using last week as per nurse talking to the wound care center. The patient stated that she has a painful wound on her left foot which she was followed by a wound care center as well as Dr. Etienne. Today, she talked to Dr. Etienne's office who also talked to the wound care center and they suggested the patient should be admitted to the hospital because of pain. The patient also was taking Xarelto because of her AFib and due to concern for bleeding from her wound, she stopped her Xarelto. Also she could not get any more Xarelto because she was not able to walk and did not take Xarelto since Friday. She also noticed that her left leg particularly left foot was very painful and she rates her pain as severe as 8/10. She mentioned that she has this wound in her left foot about last 1-2 months and she was told that it was gone to the bone. She currently finished all antibiotics recently. Her recent wound culture infection was collected by Dr. Wells on 09/11/2016, showed moderate white blood cells, Enterobacter cloacae with sensitivities to everything except for cefotaxime and ceftriaxone. The patient denies having fever, but she feels chills and feels really warm. She denies any shortness of breath, chest pain, trouble breathing. She did mention that she has trouble with urinating. She was recently admitted to [facility] between September 20 through 09/26/2016 because of the sepsis and wound infection. She was seen by Dr. Wells who evaluated the patient for a Castaneda grade 2 diabetic foot ulcer with the left foot with deterioration associated cellulitis of the left lower extremity. He recommended no debridement at that time of the ulcerative site and recommended wound VAC to maintain as well as provided with black foam, 125 mm negative pressure and change wound VAC on Friday, Friday and Friday. Dr. Wells continued to follow this patient while patient was in wound care center; however, the patient did not see Dr. Wells in the last 2 weeks. In addition, the patient was seen by nephrology last time due to contrast induced nephropathy which has improved with given IV fluids. REVIEW OF SYSTEMS: Negative except as above. Ten out of 14 systems were reviewed. PAST MEDICAL HISTORY: Acute kidney injury, ambulatory dysfunction, anemia, CHF, cholecystectomy, chronic congestive heart failure with ejection fraction of 55%, CKD stage III, COPD, diabetes mellitus type 2, anxiety, hypokalemia, hypothyroidism, obstructive sleep apnea, food infection and diabetic foot ulcer, pneumonia, septicemia due to group B streptococcus. FAMILY HISTORY: Significant for heart disease. No diabetes, no cancer. SOCIAL HISTORY: Does not smoke, does not drink, and does not use drugs. ALLERGIES: SHE IS ALLERGIC TO DULOXETINE AND INDIGOTINDISULFONATE. CURRENT MEDICATIONS: Digoxin 125 mcg p.o. daily, diltiazem 240 mg p.o. daily, Eucerin one application topical b.i.d., ferrous gluconate 324 mg p.o. daily, Advair Diskus 250/50 one puff inhaled b.i.d., furosemide 20-40 mg 1 tablet as needed for a lower extremity swelling. Also, the patient does not take insulin aspartate and now on unknown dose of Novolin mix 70/30, presumed the patient was taking 65 units before that same dose was continued by diabetic nurse practitioner, levothyroxine 250 mcg p.o. daily, magnesium oxide 400 mg p.o. b.i.d., nitroglycerin 0.4 mg as needed, omeprazole 20 mg p.o. daily, oxygen 3 liters continuously nasal cannula, potassium 20 mEq p.o. daily, spironolactone 25 mg p.o. daily, theophylline 600 mg p.o. at bedtime, tiotropium 1 capsule inhaled daily, Tylenol 650 mg p.o. q. 8 hours p.r.n. mild pain and fever, Martinez 5/325 mg 1 tablet p.o. q. 6 hours, MiraLax 17 grams p.o. daily p.r.n. constipation, tramadol 50 mg p.o. q. 8 hours p.r.n. pain. LABORATORY DATA: White count of 15 units and hemoglobin 7.2, platelets 261. Sodium 133, potassium 3.9, chloride 95, CO2 of 26, BUN of 14, creatinine of 1.1, glucose of 90. Blood cultures were collected and pending and total bilirubin 1.1. LFTs normal, alkaline phosphatase 132. BNP 2301, total protein 7.1, albumin 2.0. INR is 1.4, PTT is 38.7. IMAGING DATA: She had a chest x-ray done that shows stable cardiomegaly, pulmonary venous hypertension with cephalization of pulmonary vascular fold consistent with pulmonary venous hypertension. Her EKG 91 beats per minute, atrial fibrillation. QRS 116, QTC 425. Incomplete right bundle branch block. PHYSICAL EXAMINATION: VITAL SIGNS: Temperature 37.2, pulse 88, respirations 20, blood pressure 160/73, pulse ox 99 on room air. GENERAL: Not in acute distress, pale. HEENT: Normocephalic, atraumatic. PERRLA, EOMI. Mouth moist, no lesions. NECK: No JVD. Trachea in the midline. Thyroid is not enlarged. LUNGS: There are some crackles at the bases. No wheezing. HEART: Irregularly irregular heart rate and rhythm. No gallops. ABDOMEN: Soft, nontender, nondistended. Bowel sounds present bilateral. EXTREMITIES: No clubbing, cyanosis. There is 1+ pitting edema present. Left foot bottom has about 5 x 5 cm diabetic ulcer. Unable to determine if it goes all the way to the bone. There is a lot of foul smelling discharge present. There is pus. SKIN: No rash, no jaundice and rest as above. PSYCHIATRIC: Mood and judgment are normal. ASSESSMENT AND PLAN: This is a 71-year-old female who comes with left foot wound infection. 1. Left lower extremity wound infection with underlying cellulitis in the setting of diabetic foot infection, Castaneda grade 2 diabetic foot ulcer with deterioration compared to the previous admission. Admit to PCU, start patient on IV daptomycin and IV Zosyn every 8 hours. Consult wound care and infectious disease. Consult Dr. Wells to see if debridement is required and wound VAC is indicated. 2. Uncontrolled type 2 diabetes with recent change of NovoLog to Novolin 70/30. We will place patient on 30 units of Lantus as well as insulin sliding scale and we will see what insulin requirements she has. Her most recent A1c was done on 07/21/2017 was 5.3. The patient did have multiple episodes of hypoglycemia; however, she is unable to provide me with information whether it was in the morning or at night; therefore, we will take a careful approach with giving her full dose of insulin and monitor her sugars a.c. plus at bedtime. 3. History of coronary artery disease, hypertension, history of diastolic congestive heart failure with ejection fraction 55% on echocardiogram in February 2016, anasarca and atrial fibrillation. Continue with digoxin 125 mcg by mouth daily, Cardizem-CD 240 mg daily in the morning, mag oxide 400 mg twice a day as well as nitroglycerin sublingually when necessary, potassium extended release 40 mEq by mouth. We will hold Xarelto due to recent bleeding from her wound and also give her a dose of Lasix with albumin. We will hold her Zaroxolyn that she was taking 2.5 mg every Friday, Friday and Friday. 4. Anemia of blood loss with current hemoglobin of 7.1 and obtain consent and we will give her 1 unit of packed red blood cells and recheck her CBC tonight. 5. History of atrial fibrillation. I will hold her Xarelto due to bleeding and we will continue her outpatient diltiazem and digoxin due to possible debridement requirement by Dr. Wells. She had during last admission evaluation by [employer] because of 1.4 cm thickened endometrium and a probable history of endometrial polyp in the past. She needs to be followed up with Dr. Sims for hysterosonogram if it is not scheduled yet. Also she had suspected liver cirrhosis with manifestations of portal hypertension, splenomegaly on CT abdomen as well as a 7 mm right lower lobe nodule and the right middle lobe nodule. Mild iliac and inguinal lymphadenopathy and short term follow up CAT scan of abdomen and pelvis within next 1 month is recommended. 6. History of 2.8 cm right adrenal nodule which she likely reflects an adenoma which needs to be further evaluated by nuclear medicine medical director in outpatient setting. Deep venous thrombosis prophylaxis, we will start patient on heparin. The patient is Do Not Resuscitate. 7. Hypothyroidism, continue levothyroxine 250 mcg by mouth daily. 8. Chronic obstructive pulmonary disease. Continue Advair 250/50 inhalation twice a day, Spiriva and theophylline 600 mg by mouth at bedtime. 9. Gastroesophageal reflux disease. Change omeprazole to pantoprazole 40 mg by mouth daily. Time spent doing this admission 50 minutes. MTDD
[2016-10-15] MEDS: HYDROCODONE/ACETAMOPHEN 5/325MG TAB PO PRN (18:16)
[2016-10-15] MEDS ORDERED: ALBUMIN 25% 50 ML with FUROSEMIDE INJ 40 MG IV SCH ×2 (19:00)
[2016-10-15] MEDS: LACTOBACILLUS ACIDOPHILUS (FLORANEX) TAB PO SCH (19:07)
[2016-10-15] MEDS: PATIENT'S HEIGHT AND/OR WEIGHT NEEDED SCH ×3 (19:08→20:22)
[2016-10-15] MEDS: INSULIN ASPART 100 UNITS/ML 3 ML PEN SC SCH ×2 (19:09→21:00)
[2016-10-15] MEDS ORDERED: INSULIN GLARGINE PER UNIT 30 UNITS in SYRINGE 0 ML SC SCH (21:00)
[2016-10-15] MEDS: PIPERACILL/TAZOBAC IV 4.5 GM in DEXTROSE 5% 100ML 100 ML IV SCH (21:02)
[2016-10-15] MEDS: FLUTICASONE/SALMETEROL 250/50 (ADVAIR) 14 PUFF/1 INHALER INH SCH (21:03)
[2016-10-15] MEDS: EUCERIN CR 120 GM JAR EXT SCH (21:03)
[2016-10-15] MEDS: MAGNESIUM OXIDE 400 MG TAB PO SCH (21:05)
[2016-10-15] MEDS: THEOPHYLLINE 300MG EXTENDED REL TAB PO SCH (21:06)
[2016-10-15] MEDS: INSULIN GLARGINE SOLOSTAR 100 UNITS/ML 3 ML PEN SC SCH (21:14)
[2016-10-15] MEDS: HEPARIN SOD 5000 UNIT/0.5 ML CARP SQ SCH (21:15)
[2016-10-15] MEDS: ACETAMINOPHEN 325 MG TAB PO PRN (21:16)
[2016-10-15 23:55] LABS: HEMATOCRIT 23.3 % (37-47)
[2016-10-16 00:06] VITALS: BP 97/57; PULSE 96; TEMP 37; O2SAT 98
[2016-10-16] MEDS: HYDROCODONE/ACETAMOPHEN 5/325MG TAB PO PRN ×3 (00:56→16:02)
[2016-10-16 04:02] VITALS: BP 131/66; PULSE 98; TEMP 37; O2SAT 100
[2016-10-16] MEDS: PIPERACILL/TAZOBAC IV 4.5 GM in DEXTROSE 5% 100ML 100 ML IV SCH ×3 (04:06→20:05)
[2016-10-16] MEDS: TRAMADOL HCL 50 MG TAB PO PRN ×2 (04:07→12:00)
[2016-10-16] MEDS: LEVOTHYROXINE SODIUM PO SCH ×2 (06:33)
[2016-10-16 07:40] VITALS: BP 147/68; PULSE 92; TEMP 36.8; O2SAT 98
[2016-10-16] MEDS: EUCERIN CR 120 GM JAR EXT SCH ×2 (07:54→20:13)
[2016-10-16] MEDS: LACTOBACILLUS ACIDOPHILUS (FLORANEX) TAB PO SCH ×3 (07:54→16:04)
[2016-10-16] MEDS: DILTIAZEM HCL 240 MG CAPCR PO SCH (07:55)
[2016-10-16] MEDS: POTASSIUM CHLORIDE 20 MEQ TABCR PO SCH (07:55)
[2016-10-16] MEDS: SPIRONOLACTONE 25 MG TAB PO SCH (07:55)
[2016-10-16] MEDS: FLUTICASONE/SALMETEROL 250/50 (ADVAIR) 14 PUFF/1 INHALER INH SCH ×2 (07:55→20:13)
[2016-10-16] MEDS: FERROUS GLUCONATE 324 MG TAB PO SCH (07:55)
[2016-10-16] MEDS: PANTOprazole SOD 40 MG TAB PO SCH (07:56)
[2016-10-16] MEDS: FUROSEMIDE 20 MG TAB PO SCH (07:56)
[2016-10-16] MEDS: DIGOXIN 0.125 MG TAB PO SCH (07:56)
[2016-10-16] MEDS: MAGNESIUM OXIDE 400 MG TAB PO SCH ×2 (07:56→20:14)
[2016-10-16 08:05] LABS: BASO % 0.1 %; BASO ABS # 0.01 K/uL (0-0.2); EOS % 0.7 %; IG% 0.5 %; LYMPH % 3.4 %; LYMPH ABS # 0.38 K/uL (1.2-3.4); MEAN CELL VOLUME 83.9 fL (80-100); MEAN CORPUSCULAR HGB CONC 32.2 g/dl (32-36); MONO % 5.8 %; NEUT % 89.5 %; PLATELET COUNT 253 K/uL (130-400); RED BLOOD COUNT 2.74 M/uL (4.2-5.4); WHITE BLOOD COUNT 11.03 K/uL (4.8-10.8)
[2016-10-16] MEDS: INSULIN ASPART 100 UNITS/ML 3 ML PEN SC SCH ×4 (08:22→20:21)
[2016-10-16] MEDS: HEPARIN SOD 5000 UNIT/0.5 ML CARP SQ SCH ×2 (08:23→20:20)
[2016-10-16 08:36] LABS: BUN/CREATININE RATIO 14.2 (10-20); CALCIUM 8.7 mg/dl (8.5-10.1); CREATININE 1.2 mg/dl (0.60-1.20); POTASSIUM 3.6 mmol/L (3.5-5.1)
[2016-10-16] MEDS ORDERED: TIOTROPIUM BROMIDE 5 PUFF/90 MCG INH INH SCH (09:00)
[2016-10-16] MEDS ORDERED: LEVOTHYROXINE 200 MCG TAB PO SCH (09:00)
[2016-10-16] MEDS ORDERED: LEVOTHYROXINE 50 MCG TAB PO SCH (09:00)
[2016-10-16 09:06] LABS: COMPLETE YES
--- NOTE | 2016-10-16 11:06 | Progress Note ---
Progress Note ID Consult Dictated #[id number] A/P: 1. Left foot diabetic foot infection 2. Leukocytosis 3. Fever -Continue emperic abx, follow cultures, wound culture should be obtained if not done already -Final abx will depend on culture results -Wound care following as well -Will need continue outpt follow up with ID and wound center post d/c -Will follow, thank you
--- NOTE | 2016-10-16 11:26 | INFECT. DISEASE CONSULTATION ---
DATE OF CONSULTATION: 10/16/2016 REQUESTING PHYSICIAN: Dr. Coe. HISTORY OF PRESENT ILLNESS: This is a 71-year-old female who was admitted from home after she had worsening left foot pain. She states she has been following both with her primary care physician as well as the wound care center. She was last seen by infectious diseases on her previous admission in September. At that time, she was diagnosed with a group B strep bloodstream infection. She was initially treated with IV antibiotics and transitioned to a 14-day course of oral Augmentin. She was still on Augmentin at the time of this admission. She was also instructed to follow up with infectious diseases at the wound care center; however, she has not been seen by ID since her discharge from the hospital. She did have a wound VAC in place and was receiving home care as well as wound care for treatment of this. She is on Xarelto for a history of Afib and did notice increased bleeding in the ulcer of the left foot. She contacted both her primary care physician yesterday as well as the wound care center and was instructed to present to the Emergency Room secondary to worsening foot pain. She does admit to bleeding and drainage from the foot. She is ambulating with some difficulty at home. She denies any fevers or chills at home; however, she did have a T-max of 38.2 degrees overnight. This morning she is afebrile. She was started empirically on daptomycin and Zosyn and is tolerating these antibiotics well. She did have an initial leukocytosis of 15,000 which has improved to 11 today. Blood cultures were obtained in the Emergency Room and are pending. She did have an x-ray done in the ER which showed stable cardiomegaly. Her last foot culture grew Enterobacter on 09/11/2016, which was resistant to Rocephin. She is currently tolerating antibiotics. She states she was evaluated by the wound care center this morning in the hospital and cultures from the foot were obtained at that time. Her only complaint on my exam today is remaining pain in the foot. She continues to deny fevers or chills. She denies any nausea, vomiting, diarrhea or abdominal pain. She states her appetite is stable. She has no urinary complaints but currently has a Johnston catheter in place. All remaining review of systems are reviewed and are negative except for as noted above. PAST MEDICAL HISTORY: Significant for kidney disease, ambulatory dysfunction, anemia, congestive heart failure, COPD, type 2 diabetes, anxiety, electrolyte abnormalities, hypothyroidism, obstructive sleep apnea, diabetic foot ulceration with infection. SURGICAL HISTORY: Significant for cholecystectomy and foot debridements. FAMILY HISTORY: Noncontributory. SOCIAL HISTORY: Negative for tobacco use, alcohol use or drug use. ALLERGIES: SHE IS ALLERGIC TO DULOXETINE AND IODINE. CURRENT MEDICATIONS: Include Spiriva, daptomycin, digoxin, iron, Lasix, potassium, spironolactone, Cardizem, Protonix, Synthroid, Advair, magnesium, theophylline, subcu heparin, Lantus, Zosyn, Floranex, Tylenol, Maalox, milk of magnesia, Zofran, MiraLax, Percocet and Ultram. PHYSICAL EXAMINATION: VITAL SIGNS: She is currently afebrile, T-max is 38.2 overnight, pulse 92, respiratory rate is 16, blood pressure is 147/68, oxygen saturations 98-100% on 3 liters nasal cannula. GENERAL: She is awake, alert and oriented x3. She is in no acute distress. HEENT: Mucous membranes are moist. Dentition is poor. Extraocular muscles are intact. HEART: Regular. LUNGS: Clear with poor inspiratory effort. ABDOMEN: Soft and nondistended. EXTREMITIES: There is bilateral lower extremity edema. There are chronic changes to bilateral feet. Examination of the left foot reveals a large ulceration without active bleeding or purulent drainage. There is surrounding warmth, tenderness and erythema of the left foot. LABORATORY STUDIES: CBC today reveals a white blood cell count of 11.0, hemoglobin 7.4, hematocrit 23, platelets are 253. Chemistry panel reveals a sodium of 133, potassium 3.6, chloride 96, bicarbonate 25, BUN 17, creatinine 1.2, glucose is 150. LFTs were not elevated on admission. Blood cultures are pending. Chest x-ray is as above. No imaging of the foot has been ordered. ASSESSMENT AND PLAN: Left foot infection. Foot culture should be obtained if they have not already been done. I will follow up the results of blood culture. She is on broad spectrum antibiotics and will remain on those pending additional laboratory studies. Imaging of the foot should be obtained if not done already. Wound care is consulted and we will follow along as well. Thank you for this consultation.
[2016-10-16] MEDS: DAPTOmycin IV 600 MG in SODIUM CHLORIDE 0.9% 50ML 50 ML IV SCH (12:00)
[2016-10-16] MEDS ORDERED: NURSING VERBAL MED ORDER ONE (12:15)
--- NOTE | 2016-10-16 12:26 | PROGRESS NOTE ---
DATE: 10/16/2016 SUBJECTIVE: The patient is seen today on inpatient consultation following admission yesterday for increased swelling and redness to her left foot. The patient was last seen in the wound clinic 9 days ago for a Castaneda grade 2 diabetic foot ulcer of the left foot. The patient states she noticed increased swelling and pain in the foot over the past 24 hours and was subsequently admitted for further evaluation and intravenous antibiotic treatment. The patient today denies any significant pain. The patient denies any fever, chills or night sweats. The patient denies any other systemic complaints. OBJECTIVE: VITAL SIGNS: The patient's vital signs were reviewed and found to be unremarkable. The patient is afebrile. GENERAL: The patient is lying in a hospital bed in no acute distress, alert and cooperative throughout the examination. The ulcerative site today measures 3.4 x 5 x 2.1 cm. This is similar to dimension of the wound 9 days ago. There is some central slough; however, as well as some necrotic tissue noted. Bone is exposed at the base and now irregular in shape to palpation. There is no distinct odor or active drainage present. There is some periwound maceration, but no significant erythema present. There is overall edema of the foot and ankle, which is chronic. ASSESSMENT: 1. Castaneda grade 2 diabetic foot ulcer of the left foot. 2. Rule out underlying osteomyelitis of the foot. PLAN: At this time, the site did require debridement and with the patient's permission and after the application of topical Xylocaine 4%, the central slough and necrotic tissue along with some subcutaneous tissue was removed with scissors and forceps. Bleeding did occur and was controlled with direct pressure. The underlying bone will require a biopsy and we will attempt to perform this tomorrow at the bedside. INR performed yesterday was 1.4. Hemoglobin and hematocrit were 7.4 and 23, platelet count adequate at 253,000. The site will be managed with a wound VAC, Adaptic over the bone at the base, black foam, set at 125 mm of negative pressure. Wound VAC changed every other day. This represented an excisional debridement of less than 20 square cm.
[2016-10-16] MEDS: MoRPHine SULFATE 4 MG/ML 1 ML CARP\\VIAL IV PRN (12:29)
[2016-10-16 16:00] VITALS: O2SAT 98
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
[2016-10-16 20:00] VITALS: BP 122/52; PULSE 82; TEMP 37.1; O2SAT 98
[2016-10-16] MEDS: THEOPHYLLINE 300MG EXTENDED REL TAB PO SCH (20:14)
[2016-10-16] MEDS: INSULIN GLARGINE SOLOSTAR 100 UNITS/ML 3 ML PEN SC SCH (20:21)
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
[2016-10-16 23:13] VITALS: BP 130/68; PULSE 86; TEMP 37; O2SAT 98
[2016-10-17] VITALS (8 sets, daily range): BP systolic 129–156; BP diastolic 55–71; PULSE 76–92; TEMP 36.6–36.9; O2SAT 97–99
[2016-10-17] MEDS: HYDROCODONE/ACETAMOPHEN 5/325MG TAB PO PRN ×4 (00:25→23:33)
[2016-10-17] MEDS: ACETAMINOPHEN 325 MG TAB PO PRN (03:04)
[2016-10-17] MEDS: PIPERACILL/TAZOBAC IV 4.5 GM in DEXTROSE 5% 100ML 100 ML IV SCH ×3 (04:13→19:36)
[2016-10-17] MEDS: LEVOTHYROXINE SODIUM PO SCH ×2 (06:06)
[2016-10-17] MEDS: LACTOBACILLUS ACIDOPHILUS (FLORANEX) TAB PO SCH ×3 (08:18→16:16)
[2016-10-17] MEDS: EUCERIN CR 120 GM JAR EXT SCH ×2 (08:18→19:36)
[2016-10-17] MEDS: FLUTICASONE/SALMETEROL 250/50 (ADVAIR) 14 PUFF/1 INHALER INH SCH ×2 (08:18→19:36)
[2016-10-17] MEDS: TIOTROPIUM BROMIDE 5 PUFF/90 MCG INH INH SCH (08:18)
[2016-10-17] MEDS: DIGOXIN 0.125 MG TAB PO SCH (08:19)
[2016-10-17] MEDS: PANTOprazole SOD 40 MG TAB PO SCH (08:19)
[2016-10-17] MEDS: POTASSIUM CHLORIDE 20 MEQ TABCR PO SCH (08:19)
[2016-10-17] MEDS: FUROSEMIDE 20 MG TAB PO SCH (08:19)
[2016-10-17] MEDS: FERROUS GLUCONATE 324 MG TAB PO SCH (08:19)
[2016-10-17] MEDS: SPIRONOLACTONE 25 MG TAB PO SCH (08:19)
[2016-10-17] MEDS: DILTIAZEM HCL 240 MG CAPCR PO SCH (08:19)
[2016-10-17] MEDS: MAGNESIUM OXIDE 400 MG TAB PO SCH ×2 (08:19→19:40)
[2016-10-17 08:27] LABS: HEMATOCRIT 22.8 % (37-47); MEAN CELL VOLUME 85.4 fL (80-100); MEAN CORPUSCULAR HEMOGLOBIN 27.3 pg (25-34); MEAN PLATELET VOLUME 8.2 fL (7.4-10.4); PLATELET COUNT 252 K/uL (130-400); RED BLOOD COUNT 2.67 M/uL (4.2-5.4); WHITE BLOOD COUNT 7.66 K/uL (4.8-10.8)
[2016-10-17] MEDS: INSULIN ASPART 100 UNITS/ML 3 ML PEN SC SCH ×4 (08:28→20:29)
[2016-10-17] MEDS: HEPARIN SOD 5000 UNIT/0.5 ML CARP SQ SCH ×2 (08:29→20:28)
[2016-10-17 08:51] LABS: BASO % 0.1 %; BASO ABS # 0.01 K/uL (0-0.2); COMPLETE YES; EOS % 1.8 %; IG% 0.8 %; LYMPH % 7.7 %; LYMPH ABS # 0.59 K/uL (1.2-3.4); MONO % 7.7 %; NEUT % 81.9 %
[2016-10-17 08:55] LABS: BUN/CREATININE RATIO 13.9 (10-20); CALCIUM 8.8 mg/dl (8.5-10.1); CREATININE 1.3 mg/dl (0.60-1.20)
[2016-10-17] MEDS ORDERED: INSULIN GLARGINE SOLOSTAR 100 UNITS/ML 3 ML PEN SC SCH (09:00)
[2016-10-17] MEDS: MoRPHine SULFATE 4 MG/ML 1 ML CARP\\VIAL IV PRN (10:55)
[2016-10-17] MEDS: DAPTOmycin IV 600 MG in SODIUM CHLORIDE 0.9% 50ML 50 ML IV SCH (12:13)
--- NOTE | 2016-10-17 12:47 | Progress Note ---
Subjective Date of Service: Oct 17, 2016. Subjective blood cultures negative, tolerating abx. afebrile overnight. leukocytosis resolved. pt stated wound culture was obtained but I do not see culture results. continues with wound care. Problem List Medical Problems: (1) Atrial fibrillation Status: Acute (2) Bifascicular block Status: Acute (3) Cellulitis of both lower extremities Status: Acute (4) Cellulitis of foot, left Status: Acute (5) Cellulitis of left lower leg Status: Acute (6) CHF (congestive heart failure) Status: Acute (7) Constipation Status: Acute (8) Diabetic foot ulcer Status: Acute (9) Electrolyte abnormality Status: Acute (10) Hypokalemia Status: Acute (11) Leukocytosis Status: Acute (12) Sepsis Status: Acute (13) UTI (urinary tract infection) Status: Acute Objective Vital Signs Date Time Temp Pulse Resp B/P Pulse Ox O2 Delivery O2 Flow Rate FiO2 10/17/16 12:00 Nasal Cannula 3.0 10/17/16 11:19 36.8 92 18 129/67 99 Nasal Cannula 3.0 10/17/16 08:19 76 10/17/16 07:45 Nasal Cannula 3.0 10/17/16 07:18 36.6 76 18 129/68 99 Nasal Cannula 3.0 10/17/16 04:12 36.8 90 18 138/64 97 Nasal Cannula 3.0 10/17/16 04:00 Nasal Cannula 3.0 10/17/16 00:00 Nasal Cannula 3.0 10/16/16 23:13 37.0 86 20 130/68 98 10/16/16 20:00 98 Nasal Cannula 3.0 10/16/16 20:00 37.1 82 18 122/52 98 Nasal Cannula 3.0 10/16/16 16:00 98 Nasal Cannula 3.0 Laboratory Results Item Value Date Time Blood Culture - Preliminary Resulted 10/15/16 1330 Blood NO GROWTH TO DATE. Blood Culture - Preliminary Resulted 10/15/16 1350 Blood NO GROWTH TO DATE. Last 24 Hours Test 10/16/16 16:33 10/16/16 20:16 10/17/16 07:29 10/17/16 07:58 Bedside Glucose 287 mg/dl 286 mg/dl 279 mg/dl White Blood Count 7.66 K/uL Red Blood Count 2.67 M/uL Hemoglobin 7.3 g/dL Hematocrit 22.8 % Mean Corpuscular Volume 85.4 fL Mean Corpuscular Hemoglobin 27.3 pg Mean Corpuscular Hemoglobin Concent 32.0 g/dl Platelet Count 252 K/uL Mean Platelet Volume 8.2 fL Neutrophils (%) (Auto) 81.9 % Lymphocytes (%) (Auto) 7.7 % Monocytes (%) (Auto) 7.7 % Eosinophils (%) (Auto) 1.8 % Basophils (%) (Auto) 0.1 % Neutrophils # (Auto) 6.27 K/uL Lymphocytes # (Auto) 0.59 K/uL Monocytes # (Auto) 0.59 K/uL Eosinophils # (Auto) 0.14 K/uL Basophils # (Auto) 0.01 K/uL RDW Standard Deviation 52.2 fL RDW Coefficient of Variation 16.7 % Immature Granulocyte % (Auto) 0.8 % Immature Granulocyte # (Auto) 0.06 K/uL Sodium Level 133 mmol/L Potassium Level 4.0 mmol/L Chloride Level 95 mmol/L Carbon Dioxide Level 27 mmol/L Anion Gap 11.0 mmol/L Blood Urea Nitrogen 18 mg/dl Creatinine 1.30 mg/dl Est Creatinine Clear Calc Drug Dose 44.3 ml/min Estimated GFR () 47.5 Estimated GFR (Non- 41.0 BUN/Creatinine Ratio 13.9 Random Glucose 262 mg/dl Calcium Level 8.8 mg/dl Test 10/17/16 11:32 Bedside Glucose 305 mg/dl Assessment and Plan (1) Wound infection Assessment & Plan: continue abx, will order wound culture but she has had multiple days of IV abx, may be negative. blood cultures negative, continue to follow.
--- NOTE | 2016-10-17 14:48 | Hospitalist Progress Note ---
Hospitalist Progress Note Date of Service Oct 17, 2016. (Dee Bills ., PA-C) Subjective Pt evaluation today including: conversation w/ patient, physical exam, chart review, lab review, review of studies, review of inpatient medication list Voiding: no voiding problems, no incontinence Patient states she is feeling well, but not ready to be discharged. She feels as though we are "kicking her out of the hospital" before she is ready. She needs more time to prepare/get in contact with son. Patient denies any fever, chills, sweats, lightheadedness, dizziness, vision changes, CP, palpitations, edema, SOB, wheezing, cough, abdominal pain, nausea, vomiting, diarrhea, urinary symptoms, melena, numbness/tingling, weakness, muscle/joint pain, anxiety/depression, active bleeding, or new skin discoloration/changes. (Dee Bills ., PA-C) Medications Current Inpatient Medications Medications (Trade) Dose Ordered Sig/Hans Route Start Time Stop Time Status Last Admin Dose Admin Digoxin (Lanoxin Tab) 0.125 mg QAM PO 10/16/16 09:00 11/15/16 08:59 10/17/16 08:19 0.125 MG Ferrous Gluconate (Ferrous Gluconate Tab) 324 mg DAILY PO 10/16/16 09:00 11/15/16 08:59 10/17/16 08:19 324 MG Salmeterol Xinafoate/ Fluticasone (Advair Diskus 250/50 Inh) 1 puff BID INH 10/15/16 21:00 11/14/16 20:59 10/17/16 08:18 1 PUFF Furosemide (Lasix Tab) 20 mg DAILY PO 10/16/16 09:00 11/15/16 08:59 10/17/16 08:19 20 MG Acetaminophen/ Hydrocodone Bitart ([place] 5/325 Tab) 1 tab Q6H PRN PO 10/15/16 15:00 10/29/16 14:59 10/17/16 08:20 1 TAB Lactobacillus Acidophilus (Floranex Tab) 2 tab TIDM PO 10/15/16 17:18 11/14/16 17:59 10/17/16 12:13 2 TAB Magnesium Oxide (Mag-Ox Tab) 400 mg BID PO 2/7/17 21:00 11/14/16 20:59 10/17/16 08:19 400 MG Nitroglycerin (Nitrostat Tab) 0.4 mg DAILY PRN UT 10/15/16 15:00 11/14/16 14:59 Potassium Chloride (Klor-Con Tab) 20 meq DAILY PO 10/16/16 09:00 11/15/16 08:59 10/17/16 08:19 20 MEQ Spironolactone (Aldactone Tab) 25 mg QAM PO 10/16/16 09:00 11/15/16 08:59 10/17/16 08:19 25 MG Theophylline (Paul-Dur Extended Rel Tab) 600 mg HS PO 10/15/16 21:00 11/14/16 20:59 10/16/16 20:14 600 MG Tramadol HCl (Ultram Tab) 50 mg Q8H PRN PO 10/15/16 15:00 11/14/16 14:59 10/16/16 12:00 50 MG Diltiazem HCl (Cardizem Cd Cap) 240 mg DAILY PO 10/16/16 09:00 11/15/16 08:59 10/17/16 08:19 240 MG Multi-Ingredient Ointment (Eucerin Unscented Cr) 1 appln BID EXT 10/15/16 21:00 11/14/16 20:59 10/17/16 08:18 1 APPLN Pantoprazole Sodium (Protonix Tab) 40 mg QAM PO 10/16/16 09:00 11/15/16 08:59 10/17/16 08:19 40 MG Insulin Aspart SLIDING SCALE G... ACHS SC 10/15/16 16:00 11/14/16 15:59 10/17/16 12:21 16 UNITS Daptomycin 600 mg/ Sodium Chloride 62 ml @ 100 mls/hr Q24H IV 10/16/16 13:00 10/25/16 12:59 10/17/16 12:13 100 MLS/HR Piperacillin Sod/ Tazobactam Sod/ Dextrose (Zosyn Iv/D5 100ml) 120 ml @ 28.75 mls/ hr Q8H IV 10/15/16 20:00 10/25/16 19:59 10/17/16 12:13 28.75 MLS/HR Heparin Sodium (Porcine) (Heparin Sq 5000 Unit/0.5ml) 5,000 unit Q12 SQ 10/15/16 21:00 11/14/16 20:59 10/17/16 08:29 5,000 UNIT Acetaminophen (Tylenol Tab) 650 mg Q4H PRN PO 10/15/16 15:15 11/14/16 15:14 10/17/16 03:04 650 MG Al Hydrox/Mg Hydrox/Simethicone (Maalox Max Susp) 15 ml Q4H PRN PO 10/15/16 15:15 11/14/16 15:14 Magnesium Hydroxide (Milk Of Magnesia Susp) 30 ml Q12H PRN PO 10/15/16 15:15 11/14/16 15:14 Ondansetron HCl (Zofran Inj) 4 mg Q6H PRN IV 10/15/16 15:15 11/14/16 15:14 Polyethylene (Miralax Powder Packet) 17 gm DAILY PRN PO 10/15/16 15:15 11/14/16 15:14 Levothyroxine Sodium/ Levothyroxine Sodium (Synthroid Tab/ Synthroid Tab) 250 mcg DAILYBB PO 10/16/16 06:30 11/15/16 06:59 10/17/16 06:06 250 MCG Insulin Glargine (Lantus Solostar Pen) 30 unit HS SC 10/15/16 21:00 10/17/16 21:00 10/16/16 20:21 30 UNIT Glucose (Glucose 40% Gel) 15-30 GRAMS 15 GRAMS... UD PRN PO 10/15/16 16:00 11/14/16 15:59 Glucose (Glucose Chew Tab) 4-8 Tablets 4 Tabl... UD PRN PO 10/15/16 16:00 11/14/16 15:59 Dextrose (Dextrose 50% 50ML Syringe) 25-50ML OF 50% DW IV FOR... UD PRN IV 10/15/16 16:00 11/14/16 15:59 Glucagon (Glucagon Inj) 1 mg UD PRN SQ 10/15/16 16:00 11/14/16 15:59 Piperacillin Sod/ Tazobactam Sod (Consult) 1 ea UD PRN N/A 10/15/16 16:15 11/14/16 16:14 Tiotropium [place] (Spiriva Handihaler Inhaler) 1 puff DAILY INH 10/17/16 09:00 11/16/16 08:59 10/17/16 08:18 1 PUFF Morphine Sulfate (MoRPHine SULFATE INJ) 4 mg Q4H PRN IV 10/16/16 12:30 10/30/16 12:29 10/17/16 10:55 4 MG Insulin Glargine (Lantus Solostar Pen) 20 unit BID SC 10/17/16 21:00 11/16/16 20:59 (Dee Bills, QUINTONC) Objective Vital Signs Date Time Temp Pulse Resp B/P Pulse Ox O2 Delivery O2 Flow Rate FiO2 10/17/16 12:00 Nasal Cannula 3.0 10/17/16 11:19 36.8 92 18 129/67 99 Nasal Cannula 3.0 10/17/16 08:19 76 10/17/16 07:45 Nasal Cannula 3.0 10/17/16 07:18 36.6 76 18 129/68 99 Nasal Cannula 3.0 10/17/16 04:12 36.8 90 18 138/64 97 Nasal Cannula 3.0 10/17/16 04:00 Nasal Cannula 3.0 10/17/16 00:00 Nasal Cannula 3.0 10/16/16 23:13 37.0 86 20 130/68 98 10/16/16 20:00 98 Nasal Cannula 3.0 10/16/16 20:00 37.1 82 18 122/52 98 Nasal Cannula 3.0 10/16/16 16:00 98 Nasal Cannula 3.0 (Dee Bills, JULI-C) Physical Exam General Appearance: no apparent distress, + obese Eyes: normal inspection, PERRL ENT: hearing grossly normal Neck: supple Respiratory/Chest: lungs clear, no respiratory distress, no accessory muscle use Cardiovascular: regular rate, rhythm, + systolic murmur Abdomen: normal bowel sounds, non tender, soft Extremities: + pertinent finding (Chronic venous stasis and anatomical alteration to feet. Wounds dressed in clean dressings) Neurologic/Psychiatric: alert, oriented x 3, + pertinent finding (anxious) Skin: normal color, warm/dry, no rash (Dee Bills, QUINTONC) Laboratory Results Last 24 Hours Test 2/8/17 16:33 10/16/16 20:16 10/17/16 07:29 10/17/16 07:58 Bedside Glucose 287 mg/dl 286 mg/dl 279 mg/dl White Blood Count 7.66 K/uL Red Blood Count 2.67 M/uL Hemoglobin 7.3 g/dL Hematocrit 22.8 % Mean Corpuscular Volume 85.4 fL Mean Corpuscular Hemoglobin 27.3 pg Mean Corpuscular Hemoglobin Concent 32.0 g/dl Platelet Count 252 K/uL Mean Platelet Volume 8.2 fL Neutrophils (%) (Auto) 81.9 % Lymphocytes (%) (Auto) 7.7 % Monocytes (%) (Auto) 7.7 % Eosinophils (%) (Auto) 1.8 % Basophils (%) (Auto) 0.1 % Neutrophils # (Auto) 6.27 K/uL Lymphocytes # (Auto) 0.59 K/uL Monocytes # (Auto) 0.59 K/uL Eosinophils # (Auto) 0.14 K/uL Basophils # (Auto) 0.01 K/uL RDW Standard Deviation 52.2 fL RDW Coefficient of Variation 16.7 % Immature Granulocyte % (Auto) 0.8 % Immature Granulocyte # (Auto) 0.06 K/uL Sodium Level 133 mmol/L Potassium Level 4.0 mmol/L Chloride Level 95 mmol/L Carbon Dioxide Level 27 mmol/L Anion Gap 11.0 mmol/L Blood Urea Nitrogen 18 mg/dl Creatinine 1.30 mg/dl Est Creatinine Clear Calc Drug Dose 44.3 ml/min Estimated GFR () 47.5 Estimated GFR (Non- 41.0 BUN/Creatinine Ratio 13.9 Random Glucose 262 mg/dl Calcium Level 8.8 mg/dl Test 10/17/16 11:32 Bedside Glucose 305 mg/dl (Dee Bills, NORA) Assessment and Plan This is a 71-year-old female who comes toEmergency Room complaining of left foot infection. The patient had multiple admissions for left foot infection and had a wound VAC placed before which she stopped using last week as per nurse talking to the wound care center. The patient stated that she has a painful wound on her left foot which she was followed by a wound care center as well as Dr. Etienne. Left lower extremity wound: - Admit med/surg - Pending bone bx, continue IV Daptomycin and IV Zosyn - Infectious disease and wound care following, appreciate recommendations Uncontrolled type 2 diabetes: - Lantus 20 unit SC BID - BSG ACHS with sliding insulin scale coverage Coronary artery disease, hypertension, diastolic congestive heart failure with ejection fraction 55% on echocardiogram in February 2016, anasarca and atrial fibrillation: - Continue with Digoxin 125 mcg by mouth daily - Continue Cardizem-CD 240 mg daily in the morning - Contiue Mag oxide 400 mg twice a day - Nitroglycerin sublingually when necessary - Potassium extended release 40 mEq by mouth - Hold Xarelto for now due to low hgb. Continue to follow H&H, stable Anemia of blood loss: - Continue to follow Hgb and follow for bleeding - Holding Xarelto due to low hgb Atrial fibrillation. - Continue Diltiazem and Digoxin History of 2.8 cm right adrenal nodule which she likely reflects an adenoma which needs to be further evaluated by naval aircrew[employer] avionics in outpatient setting Hypothyroidism: Continue Levothyroxine 250 mcg by mouth daily Chronic obstructive pulmonary disease: Continue Advair 250/50 inhalation twice a day, Spiriva and theophylline 600 mg by mouth at bedtime GERD: Change omeprazole to Pantoprazole 40 mg by mouth daily Right middle lobe nodule. Mild iliac and inguinal lymphadenopathy and short term follow up CAT scan of abdomen and pelvis within next 1 month is recommended \\ DVT prophylaxis: - Heparin 5000 units SQ q12 hrs. Resume Xarelto when able Dispo: At this time, patient is stable for discharge. Hopeful patient will decide to go to [facility] as she will likely need IV antibiotic treatment. Additionally, due to home situation, it is not safe for patient to return home with wound. Case management, [facility] volunteer patient representative, and Dr. Limon to talk with patient today. Patient is very reluctant to go to [facility]. It seems finical issues are a big concern to patient. Patient concerned if [facility] can manage her wound vac/provide proper care. Also, patient had a bad experience during last stay at [facility]. (Dee Bills ., PA-C) i personally examined pt and verified all andrea points irwin Bills PAC feeling better now - was feeling overwhelmed earlier - worried about finances, wound care, etc. understands now that everyone is just trying to take care of her. vitals noted, nad, breathing unlabored. foot ulcer w presumed osteomyelitis - await bone bx by wound care - but anticipate need for 6wks IV abx and ongoing local wound care/vac/etc see yesterday's notes as well. anticipate need for SNF (Jensen Limon D.O.)
[2016-10-17] MEDS: THEOPHYLLINE 300MG EXTENDED REL TAB PO SCH (19:39)
[2016-10-17] MEDS: INSULIN GLARGINE SOLOSTAR 100 UNITS/ML 3 ML PEN SC SCH (20:30)
[2016-10-17] MEDS: TRAMADOL HCL 50 MG TAB PO PRN (21:33)
[2016-10-18] VITALS (8 sets, daily range): BP systolic 117–149; BP diastolic 53–73; PULSE 78–90; TEMP 36.8–37.3; O2SAT 98–100
[2016-10-18] MEDS: PIPERACILL/TAZOBAC IV 4.5 GM in DEXTROSE 5% 100ML 100 ML IV SCH ×3 (03:38→20:20)
[2016-10-18] MEDS: LEVOTHYROXINE SODIUM PO SCH ×2 (06:40)
[2016-10-18] MEDS: HYDROCODONE/ACETAMOPHEN 5/325MG TAB PO PRN ×3 (06:41→20:44)
[2016-10-18] MEDS: FLUTICASONE/SALMETEROL 250/50 (ADVAIR) 14 PUFF/1 INHALER INH SCH ×2 (07:45→20:32)
[2016-10-18] MEDS: TIOTROPIUM BROMIDE 5 PUFF/90 MCG INH INH SCH (07:46)
[2016-10-18] MEDS: FERROUS GLUCONATE 324 MG TAB PO SCH (07:47)
[2016-10-18] MEDS: DILTIAZEM HCL 240 MG CAPCR PO SCH (07:47)
[2016-10-18] MEDS: SPIRONOLACTONE 25 MG TAB PO SCH (07:47)
[2016-10-18] MEDS: POTASSIUM CHLORIDE 20 MEQ TABCR PO SCH (07:48)
[2016-10-18] MEDS: DIGOXIN 0.125 MG TAB PO SCH (07:48)
[2016-10-18] MEDS: FUROSEMIDE 20 MG TAB PO SCH (07:49)
[2016-10-18] MEDS: PANTOprazole SOD 40 MG TAB PO SCH (07:49)
[2016-10-18] MEDS: MAGNESIUM OXIDE 400 MG TAB PO SCH ×2 (07:50→20:33)
[2016-10-18] MEDS: EUCERIN CR 120 GM JAR EXT SCH ×2 (07:50→20:31)
[2016-10-18] MEDS: LACTOBACILLUS ACIDOPHILUS (FLORANEX) TAB PO SCH ×3 (07:51→17:29)
[2016-10-18] MEDS: INSULIN ASPART 100 UNITS/ML 3 ML PEN SC SCH ×4 (08:38→20:21)
[2016-10-18] MEDS: HEPARIN SOD 5000 UNIT/0.5 ML CARP SQ SCH ×2 (08:39→20:23)
[2016-10-18] MEDS: INSULIN GLARGINE SOLOSTAR 100 UNITS/ML 3 ML PEN SC SCH ×2 (08:39→20:22)
[2016-10-18 08:50] LABS: HEMATOCRIT 22.5 % (37-47); MEAN CELL VOLUME 84.9 fL (80-100); MEAN CORPUSCULAR HEMOGLOBIN 26.8 pg (25-34); MEAN CORPUSCULAR HGB CONC 31.6 g/dl (32-36); MEAN PLATELET VOLUME 8.3 fL (7.4-10.4); PLATELET COUNT 240 K/uL (130-400); RED BLOOD COUNT 2.65 M/uL (4.2-5.4); WHITE BLOOD COUNT 8.97 K/uL (4.8-10.8)
--- NOTE | 2016-10-18 09:13 | Progress Note ---
Subjective Date of Service: Oct 18, 2016. Subjective Pt evaluation today including: conversation w/ patient, physical exam, chart review, lab review pt seen in follow up, vac in place. pain improved. no f/c wound culture pending. blood cultures negative to date. tolerating abx. feeling better today. plans to follow at [facility] [place] post d/c. All remaining ros reviewed and are negative. Problem List Medical Problems: (1) Atrial fibrillation Status: Acute (2) Bifascicular block Status: Acute (3) Cellulitis of both lower extremities Status: Acute (4) Cellulitis of foot, left Status: Acute (5) Cellulitis of left lower leg Status: Acute (6) CHF (congestive heart failure) Status: Acute (7) Constipation Status: Acute (8) Diabetic foot ulcer Status: Acute (9) Electrolyte abnormality Status: Acute (10) Hypokalemia Status: Acute (11) Leukocytosis Status: Acute (12) Sepsis Status: Acute (13) UTI (urinary tract infection) Status: Acute Objective Vital Signs Date Time Temp Pulse Resp B/P Pulse Ox O2 Delivery O2 Flow Rate FiO2 10/18/16 07:48 70 10/18/16 07:40 36.9 90 16 134/73 100 Nasal Cannula 2.0 10/18/16 04:19 36.8 90 18 137/66 99 2.0 10/18/16 04:00 Nasal Cannula 3.0 10/18/16 00:00 Nasal Cannula 3.0 10/17/16 23:07 36.9 90 18 135/55 97 Nasal Cannula 3.0 10/17/16 20:00 98 Nasal Cannula 3.0 10/17/16 19:51 36.9 85 18 145/66 99 Room Air 10/17/16 16:00 99 Nasal Cannula 3.0 10/17/16 15:24 36.8 85 18 156/71 99 Nasal Cannula 3.0 10/17/16 12:00 Nasal Cannula 3.0 10/17/16 11:19 36.8 92 18 129/67 99 Nasal Cannula 3.0 Physical Exam General Appearance: WD/WN, no apparent distress Eyes: EOMI Neck: supple Respiratory/Chest: lungs clear, normal breath sounds, no respiratory distress Cardiovascular: regular rate, rhythm Abdomen: soft Neurologic/Psychiatric: alert, oriented x 3 Skin: normal color Comments: vac in place. no surrounding warmth, tenderness, no drainage Laboratory Results Item Value Date Time Blood Culture - Preliminary Resulted 10/15/16 1350 Blood NO GROWTH TO DATE. Blood Culture - Preliminary Resulted 10/15/16 1330 Blood NO GROWTH TO DATE. Last 24 Hours Test 10/17/16 11:32 10/17/16 16:34 10/17/16 20:12 10/18/16 07:35 Bedside Glucose 305 mg/dl 228 mg/dl 225 mg/dl 286 mg/dl Test 10/18/16 08:25 White Blood Count 8.97 K/uL Red Blood Count 2.65 M/uL Hemoglobin 7.1 g/dL Hematocrit 22.5 % Mean Corpuscular Volume 84.9 fL Mean Corpuscular Hemoglobin 26.8 pg Mean Corpuscular Hemoglobin Concent 31.6 g/dl Platelet Count 240 K/uL Mean Platelet Volume 8.3 fL RDW Standard Deviation 51.3 fL RDW Coefficient of Variation 16.5 % Assessment and Plan (1) Wound infection Assessment & Plan: no wound culture, blood cultures negative. can continue abx , upon d/c can change to po abx. Old foot cultures reviewed, grew Enterobacter on 09/11, previous to that had GBS and MRSA in 07/2016. 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 can change to bactrim ds 1 po bid upon d/c. will need continue wound care post d/c. can follow with ID at wound center as well. ok for d/c from ID standpoint when medically stable.
[2016-10-18 09:14] LABS: BUN/CREATININE RATIO 15.1 (10-20); CALCIUM 8.6 mg/dl (8.5-10.1); CREATININE 1.2 mg/dl (0.60-1.20); POTASSIUM 4.3 mmol/L (3.5-5.1)
[2016-10-18 09:22] LABS: ANISOCYTOSIS PRESENT; BASO % 0.1 %; BASO ABS # 0.01 K/uL (0-0.2); COMPLETE YES; EOS % 2.1 %; HYPOCHROMIA PRESENT; LYMPH % 6.5 %; LYMPH ABS # 0.58 K/uL (1.2-3.4); MONO % 6.9 %; NEUT % 83.4 %; POLYCHROMASIA 1+
[2016-10-18] MEDS: MoRPHine SULFATE 4 MG/ML 1 ML CARP\\VIAL IV PRN (11:39)
--- NOTE | 2016-10-18 11:51 | PROGRESS NOTE ---
DATE: 10/18/2016 SUBJECTIVE: The patient is seen today for followup evaluation of a Castaneda grade 2 diabetic foot ulcer to the left foot. The patient has been tolerating a wound VAC today. The patient was undergoing physical therapy upon arrival and did have some bleeding from the VAC site. The patient denies any new systemic complaints at this time. OBJECTIVE: The patient's vital signs were reviewed and found to be unremarkable. The patient is afebrile. The ulcerative site today shows some increased granulation tissue evolving in the side go. Bone is exposed at the base. There is some minor bleeding present which seems to be controlled with direct pressure. ASSESSMENT: 1. Castaneda grade 2 diabetic foot ulcer to the left foot. 2. Rule out underlying osteomyelitis. PLAN: A bone biopsy will be performed today. With the patient's permission, after the application of topical Xylocaine 4%, the bone tissue was removed with a rongeur. No significant bleeding occurred. The site was covered, however, with bone wax. Wound VAC will be reapplied with Adaptic at the base, followed by black foam 125 mm of negative pressure. Wound VAC changed Friday, Friday, Friday. The patient will continue to be monitored during hospitalization and also seen on an outpatient basis. This represented a bone biopsy.
--- NOTE | 2016-10-18 12:08 | Hospitalist Progress Note ---
Hospitalist Progress Note Date of Service Oct 18, 2016. (Dee Bills ., PA-C) Subjective Pt evaluation today including: conversation w/ patient, physical exam, chart review, lab review, review of inpatient medication list Patient states she is not feeling well. +significant wound pain- Dr. Wells recently in to see patient, bone biopsy done, new dressing/wound vac placed. [facility] strategic partnership representative has not been in to see patient yet. Per patient, she is NOT ready to be discharged, she has not made a decision yet. She is very frustrated with her sugar levels- she believes it is due to being on NovoLog and not Novolin. Patient denies any fever, chills, sweats, lightheadedness, dizziness, vision changes, CP, palpitations, edema, SOB, wheezing, cough, abdominal pain, nausea, vomiting, diarrhea, urinary symptoms, melena, numbness/ tingling, weakness, depression, active bleeding, or new skin discoloration/ changes. (Dee Bills ., PA-C) Medications Current Inpatient Medications Medications (Trade) Dose Ordered Sig/Hans Route Start Time Stop Time Status Last Admin Dose Admin Digoxin (Lanoxin Tab) 0.125 mg QAM PO 10/16/16 09:00 11/15/16 08:59 10/18/16 07:48 0.125 MG Ferrous Gluconate (Ferrous Gluconate Tab) 324 mg DAILY PO 10/16/16 09:00 11/15/16 08:59 10/18/16 07:47 324 MG Salmeterol Xinafoate/ Fluticasone (Advair Diskus 250/50 Inh) 1 puff BID INH 10/15/16 21:00 11/14/16 20:59 10/18/16 07:45 1 PUFF Furosemide (Lasix Tab) 20 mg DAILY PO 10/16/16 09:00 11/15/16 08:59 10/18/16 07:49 20 MG Acetaminophen/ Hydrocodone Bitart ([place] 5/325 Tab) 1 tab Q6H PRN PO 10/15/16 15:00 10/29/16 14:59 10/18/16 06:41 1 TAB Lactobacillus Acidophilus (Floranex Tab) 2 tab TIDM PO 10/15/16 17:18 11/14/16 17:59 10/18/16 11:51 2 TAB Magnesium Oxide (Mag-Ox Tab) 400 mg BID PO 10/15/16 21:00 11/14/16 20:59 10/18/16 07:50 400 MG Nitroglycerin (Nitrostat Tab) 0.4 mg DAILY PRN UT 10/15/16 15:00 11/14/16 14:59 Potassium Chloride (Klor-Con Tab) 20 meq DAILY PO 10/16/16 09:00 11/15/16 08:59 10/18/16 07:48 20 MEQ Spironolactone (Aldactone Tab) 25 mg QAM PO 10/16/16 09:00 11/15/16 08:59 10/18/16 07:47 25 MG Theophylline (Paul-Dur Extended Rel Tab) 600 mg HS PO 10/15/16 21:00 11/14/16 20:59 10/17/16 19:39 600 MG Tramadol HCl (Ultram Tab) 50 mg Q8H PRN PO 10/15/16 15:00 11/14/16 14:59 10/17/16 21:33 50 MG Diltiazem HCl (Cardizem Cd Cap) 240 mg DAILY PO 10/16/16 09:00 11/15/16 08:59 10/18/16 07:47 240 MG Multi-Ingredient Ointment (Eucerin Unscented Cr) 1 appln BID EXT 10/15/16 21:00 11/14/16 20:59 10/18/16 07:50 1 APPLN Pantoprazole Sodium (Protonix Tab) 40 mg QAM PO 10/16/16 09:00 11/15/16 08:59 10/18/16 07:49 40 MG Insulin Aspart SLIDING SCALE G... ACHS SC 10/15/16 16:00 11/14/16 15:59 10/18/16 08:38 17 UNITS Daptomycin 600 mg/ Sodium Chloride 62 ml @ 100 mls/hr Q24H IV 10/16/16 13:00 10/25/16 12:59 10/17/16 12:13 100 MLS/HR Piperacillin Sod/ Tazobactam Sod/ Dextrose (Zosyn Iv/D5 100ml) 120 ml @ 28.75 mls/ hr Q8H IV 10/15/16 20:00 10/25/16 19:59 10/18/16 11:49 28.75 MLS/HR Heparin Sodium (Porcine) (Heparin Sq 5000 Unit/0.5ml) 5,000 unit Q12 SQ 10/15/16 21:00 11/14/16 20:59 10/18/16 08:39 5,000 UNIT Acetaminophen (Tylenol Tab) 650 mg Q4H PRN PO 10/15/16 15:15 11/14/16 15:14 10/17/16 03:04 650 MG Al Hydrox/Mg Hydrox/Simethicone (Maalox Max Susp) 15 ml Q4H PRN PO 10/15/16 15:15 11/14/16 15:14 Magnesium Hydroxide (Milk Of Magnesia Susp) 30 ml Q12H PRN PO 10/15/16 15:15 11/14/16 15:14 Ondansetron HCl (Zofran Inj) 4 mg Q6H PRN IV 10/15/16 15:15 11/14/16 15:14 Polyethylene (Miralax Powder Packet) 17 gm DAILY PRN PO 10/15/16 15:15 11/14/16 15:14 Levothyroxine Sodium/ Levothyroxine Sodium (Synthroid Tab/ Synthroid Tab) 250 mcg DAILYBB PO 10/16/16 06:30 11/15/16 06:59 10/18/16 06:40 250 MCG Glucose (Glucose 40% Gel) 15-30 GRAMS 15 GRAMS... UD PRN PO 10/15/16 16:00 11/14/16 15:59 Glucose (Glucose Chew Tab) 4-8 Tablets 4 Tabl... UD PRN PO 10/15/16 16:00 11/14/16 15:59 Dextrose (Dextrose 50% 50ML Syringe) 25-50ML OF 50% DW IV FOR... UD PRN IV 10/15/16 16:00 11/14/16 15:59 Glucagon (Glucagon Inj) 1 mg UD PRN SQ 10/15/16 16:00 11/14/16 15:59 Piperacillin Sod/ Tazobactam Sod (Consult) 1 ea UD PRN N/A 10/15/16 16:15 11/14/16 16:14 Tiotropium [place] (Spiriva Handihaler Inhaler) 1 puff DAILY INH 10/17/16 09:00 11/16/16 08:59 10/18/16 07:46 1 PUFF Morphine Sulfate (MoRPHine SULFATE INJ) 4 mg Q4H PRN IV 10/16/16 12:30 10/30/16 12:29 10/18/16 11:39 4 MG Insulin Glargine (Lantus Solostar Pen) 20 unit BID SC 10/17/16 21:00 11/16/16 20:59 10/18/16 08:39 20 UNIT (Dee Bills, QUINTONC) Objective Vital Signs Date Time Temp Pulse Resp B/P Pulse Ox O2 Delivery O2 Flow Rate FiO2 10/18/16 08:00 100 Nasal Cannula 2.0 10/18/16 07:48 70 10/18/16 07:40 36.9 90 16 134/73 100 Nasal Cannula 2.0 10/18/16 04:19 36.8 90 18 137/66 99 2.0 10/18/16 04:00 Nasal Cannula 3.0 10/18/16 00:00 Nasal Cannula 3.0 10/17/16 23:07 36.9 90 18 135/55 97 Nasal Cannula 3.0 10/17/16 20:00 98 Nasal Cannula 3.0 10/17/16 19:51 36.9 85 18 145/66 99 Room Air 10/17/16 16:00 99 Nasal Cannula 3.0 10/17/16 15:24 36.8 85 18 156/71 99 Nasal Cannula 3.0 10/17/16 12:00 Nasal Cannula 3.0 (Dee Bills PA-C) Physical Exam General Appearance: no apparent distress, + obese Eyes: normal inspection, PERRL ENT: hearing grossly normal Neck: supple Respiratory/Chest: lungs clear, no respiratory distress, no accessory muscle use Cardiovascular: regular rate, rhythm, + systolic murmur Abdomen: normal bowel sounds, non tender, soft Extremities: + pertinent finding (Chronic venous stasis and anatomical alteration to feet. left foot wound dressed in clean dressing ) Neurologic/Psychiatric: alert, oriented x 3, + pertinent finding (anxious ) Skin: normal color, warm/dry, no rash (Dee Bills PA-C) Laboratory Results Last 24 Hours Test 10/17/16 16:34 2/9/17 20:12 10/18/16 07:35 10/18/16 08:25 Bedside Glucose 228 mg/dl 225 mg/dl 286 mg/dl White Blood Count 8.97 K/uL Red Blood Count 2.65 M/uL Hemoglobin 7.1 g/dL Hematocrit 22.5 % Mean Corpuscular Volume 84.9 fL Mean Corpuscular Hemoglobin 26.8 pg Mean Corpuscular Hemoglobin Concent 31.6 g/dl Platelet Count 240 K/uL Mean Platelet Volume 8.3 fL Neutrophils (%) (Auto) 83.4 % Lymphocytes (%) (Auto) 6.5 % Monocytes (%) (Auto) 6.9 % Eosinophils (%) (Auto) 2.1 % Basophils (%) (Auto) 0.1 % Neutrophils # (Auto) 7.48 K/uL Lymphocytes # (Auto) 0.58 K/uL Monocytes # (Auto) 0.62 K/uL Eosinophils # (Auto) 0.19 K/uL Basophils # (Auto) 0.01 K/uL RDW Standard Deviation 51.3 fL RDW Coefficient of Variation 16.5 % Immature Granulocyte % (Auto) 1.0 % Immature Granulocyte # (Auto) 0.09 K/uL Polychromasia 1+ Hypochromasia PRESENT Anisocytosis PRESENT Sodium Level 131 mmol/L Potassium Level 4.3 mmol/L Chloride Level 95 mmol/L Carbon Dioxide Level 28 mmol/L Anion Gap 8.0 mmol/L Blood Urea Nitrogen 18 mg/dl Creatinine 1.20 mg/dl Est Creatinine Clear Calc Drug Dose 48.1 ml/min Estimated GFR () 52.3 Estimated GFR (Non- 45.1 BUN/Creatinine Ratio 15.1 Random Glucose 289 mg/dl Calcium Level 8.6 mg/dl Test 10/18/16 11:31 Bedside Glucose 304 mg/dl (Dee Bills, NORA) Assessment and Plan This is a 71-year-old female who comes toEmergency Room complaining of left foot infection. The patient had multiple admissions for left foot infection and had a wound VAC placed before which she stopped using last week as per nurse talking to the wound care center. The patient stated that she has a painful wound on her left foot which she was followed by a wound care center as well as Dr. Etienne. Left lower extremity wound: - Admit med/surg - Pending bone bx, continue IV Daptomycin and IV Zosyn - Pain management with IV Morphine - Infectious disease and wound care following, appreciate recommendations Uncontrolled type 2 diabetes: - Lantus 20 unit SC BID - BSG ACHS with sliding insulin scale coverage Coronary artery disease, hypertension, diastolic congestive heart failure with ejection fraction 55% on echocardiogram in February 2016, anasarca and atrial fibrillation: - Continue with Digoxin 125 mcg by mouth daily - Continue Cardizem-CD 240 mg daily in the morning - Contiue Mag oxide 400 mg twice a day - Nitroglycerin sublingually when necessary - Potassium extended release 40 mEq by mouth - Hold Xarelto for now due to low hgb. Continue to follow H&H, stable Anemia of blood loss: - Continue to follow Hgb and follow for bleeding - Holding Xarelto due to low hgb Atrial fibrillation. - Continue Diltiazem and Digoxin History of 2.8 cm right adrenal nodule which she likely reflects an adenoma which needs to be further evaluated by costume design teacher in outpatient setting Hypothyroidism: Continue Levothyroxine 250 mcg by mouth daily Chronic obstructive pulmonary disease: Continue Advair 250/50 inhalation twice a day, Spiriva and theophylline 600 mg by mouth at bedtime GERD: Change omeprazole to Pantoprazole 40 mg by mouth daily Right middle lobe nodule. Mild iliac and inguinal lymphadenopathy and short term follow up CAT scan of abdomen and pelvis within next 1 month is recommended \ DVT prophylaxis: - Heparin 5000 units SQ q12 hrs. Resume Xarelto when able Dispo: At this time, patient is stable for discharge. Hopeful patient will decide to go to [facility] as she will need IV antibiotic treatment. Additionally, due to home situation, it is not safe for patient to return home with wound. Case management and Dr. Limon talked. Pending [facility] strategic partnership representative to come speak with patient. Patient is very reluctant to go to [facility]. It seems finical issues are a big concern to patient. Patient concerned if [facility] can manage her wound vac/provide proper care. Also, patient had a bad experience during last stay at [facility]. (Dee Bills ., PAPerfectoC) pt seen, case discussed w Marciano Bills PAC. still waiting on finalization w insurance in regards to wound vac. sleeping comfortably d/w wound team had bone bx today vitals noted, nad, sleeping comfortably d/w case management foot ulcer and osteomyelitis -ongoing local wound care, ID input appreciated - can likely reduce to bactrim at DC. stable for SNF once wound vac issues clearly set up DVT proph -heparin SQ otherwise as above (Jensen Limon D.O.)
[2016-10-18] MEDS: DAPTOmycin IV 600 MG in SODIUM CHLORIDE 0.9% 50ML 50 ML IV SCH (12:28)
[2016-10-18] MEDS: THEOPHYLLINE 300MG EXTENDED REL TAB PO SCH (20:32)
[2016-10-19] VITALS (14 sets, daily range): BP systolic 121–146; BP diastolic 63–72; PULSE 67–90; TEMP 36.7–37.2; O2SAT 95–100
[2016-10-19] MEDS: MoRPHine SULFATE 4 MG/ML 1 ML CARP\\VIAL IV PRN (00:01)
[2016-10-19] MEDS: PIPERACILL/TAZOBAC IV 4.5 GM in DEXTROSE 5% 100ML 100 ML IV SCH ×2 (03:36→12:21)
[2016-10-19] MEDS: LEVOTHYROXINE SODIUM PO SCH ×2 (06:40)
[2016-10-19] MEDS: HYDROCODONE/ACETAMOPHEN 5/325MG TAB PO PRN ×3 (06:41→20:40)
[2016-10-19 08:18] LABS: HEMATOCRIT 21.8 % (37-47); MEAN CELL VOLUME 85.2 fL (80-100); MEAN CORPUSCULAR HEMOGLOBIN 26.6 pg (25-34); MEAN CORPUSCULAR HGB CONC 31.2 g/dl (32-36); MEAN PLATELET VOLUME 8.3 fL (7.4-10.4); PLATELET COUNT 285 K/uL (130-400); RED BLOOD COUNT 2.56 M/uL (4.2-5.4); WHITE BLOOD COUNT 8.42 K/uL (4.8-10.8)
[2016-10-19 08:36] LABS: BUN/CREATININE RATIO 15.5 (10-20); CALCIUM 8.6 mg/dl (8.5-10.1); CREATININE 1.1 mg/dl (0.60-1.20); POTASSIUM 4.2 mmol/L (3.5-5.1)
[2016-10-19 08:38] LABS: BASO % 0.1 %; BASO ABS # 0.01 K/uL (0-0.2); COMPLETE YES; EOS % 2.1 %; IG% 1.1 %; LYMPH % 6.8 %; LYMPH ABS # 0.57 K/uL (1.2-3.4); MONO % 6.4 %; NEUT % 83.5 %
[2016-10-19] MEDS: FLUTICASONE/SALMETEROL 250/50 (ADVAIR) 14 PUFF/1 INHALER INH SCH ×2 (08:54→20:38)
[2016-10-19] MEDS: INSULIN ASPART 100 UNITS/ML 3 ML PEN SC SCH ×4 (08:56→20:34)
[2016-10-19] MEDS: INSULIN GLARGINE SOLOSTAR 100 UNITS/ML 3 ML PEN SC SCH ×2 (08:56→20:34)
[2016-10-19] MEDS: HEPARIN SOD 5000 UNIT/0.5 ML CARP SQ SCH ×2 (08:57→20:35)
[2016-10-19] MEDS: TIOTROPIUM BROMIDE 5 PUFF/90 MCG INH INH SCH (08:57)
[2016-10-19] MEDS: LACTOBACILLUS ACIDOPHILUS (FLORANEX) TAB PO SCH ×3 (08:58→17:00)
[2016-10-19] MEDS: EUCERIN CR 120 GM JAR EXT SCH ×2 (08:58→20:45)
[2016-10-19] MEDS: FERROUS GLUCONATE 324 MG TAB PO SCH (08:59)
[2016-10-19] MEDS: SPIRONOLACTONE 25 MG TAB PO SCH (08:59)
[2016-10-19] MEDS: DILTIAZEM HCL 240 MG CAPCR PO SCH (08:59)
[2016-10-19] MEDS: POTASSIUM CHLORIDE 20 MEQ TABCR PO SCH (09:00)
[2016-10-19] MEDS: DIGOXIN 0.125 MG TAB PO SCH (09:00)
[2016-10-19] MEDS: PANTOprazole SOD 40 MG TAB PO SCH (09:01)
[2016-10-19] MEDS: MAGNESIUM OXIDE 400 MG TAB PO SCH ×2 (09:01→20:39)
[2016-10-19] MEDS: FUROSEMIDE 20 MG TAB PO SCH (09:01)
[2016-10-19] MEDS ORDERED: NURSING VERBAL MED ORDER ONE (12:15)
[2016-10-19] MEDS: DAPTOmycin IV 600 MG in SODIUM CHLORIDE 0.9% 50ML 50 ML IV SCH (12:56)
[2016-10-19] MEDS: TRAMADOL HCL 50 MG TAB PO PRN (14:25)
--- NOTE | 2016-10-19 16:22 | Progress Note ---
Subjective Date of Service: Oct 19, 2016. Subjective Pt evaluation today including: conversation w/ patient, physical exam, chart review, lab review feeling ok now. had a lot of bleeding from foot wound yesterday per her report. no f/c/s. no lightheaded/dizzy - discussed Hgb and +/- of transfuse because Hgb < 7 vs watchful waiting since relatively asymptomatic. she notes she's needed transfused before, figures it will not improve well on its own - prefers transfusion prior to leaving hospital. Problem List Medical Problems: (1) Atrial fibrillation Status: Acute (2) Bifascicular block Status: Acute (3) Cellulitis of both lower extremities Status: Acute (4) Cellulitis of foot, left Status: Acute (5) Cellulitis of left lower leg Status: Acute (6) CHF (congestive heart failure) Status: Acute (7) Constipation Status: Acute (8) Diabetic foot ulcer Status: Acute (9) Electrolyte abnormality Status: Acute (10) Hypokalemia Status: Acute (11) Leukocytosis Status: Acute (12) Sepsis Status: Acute (13) UTI (urinary tract infection) Status: Acute Review of Systems Constitutional: No fatigue Respiratory: No shortness of breath Cardiac: No chest pain Skin: + see HPI ros otherwise negative except for as above Objective Vital Signs Date Time Temp Pulse Resp B/P Pulse Ox O2 Delivery O2 Flow Rate FiO2 10/19/16 15:45 37.0 86 18 125/63 98 Nasal Cannula 3.0 10/19/16 11:02 36.9 67 20 146/68 98 3.0 10/19/16 09:00 82 10/19/16 08:00 99 Nasal Cannula 3.0 10/19/16 07:23 36.7 88 20 137/66 99 Nasal Cannula 3.0 10/19/16 04:08 36.8 90 18 121/72 99 Nasal Cannula 3.0 10/19/16 03:48 Nasal Cannula 3.0 10/19/16 00:00 Nasal Cannula 3.0 10/18/16 23:26 37.0 89 16 143/54 99 Nasal Cannula 3.0 10/18/16 20:00 Nasal Cannula 3.0 10/18/16 19:37 37.3 78 20 149/65 98 Nasal Cannula 3.0 Physical Exam General Appearance: no apparent distress Eyes: EOMI ENT: hearing grossly normal Neck: trachea midline Respiratory/Chest: no respiratory distress, no accessory muscle use Neurologic/Psychiatric: community liaison officer II-XII nml as tested, alert, normal mood/affect Skin: normal color, warm/dry Laboratory Results Last 24 Hours Test 10/18/16 20:06 10/19/16 07:17 10/19/16 07:28 10/19/16 11:11 Bedside Glucose 281 mg/dl 316 mg/dl 369 mg/dl White Blood Count 8.42 K/uL Red Blood Count 2.56 M/uL Hemoglobin 6.8 g/dL Hematocrit 21.8 % Mean Corpuscular Volume 85.2 fL Mean Corpuscular Hemoglobin 26.6 pg Mean Corpuscular Hemoglobin Concent 31.2 g/dl Platelet Count 285 K/uL Mean Platelet Volume 8.3 fL Neutrophils (%) (Auto) 83.5 % Lymphocytes (%) (Auto) 6.8 % Monocytes (%) (Auto) 6.4 % Eosinophils (%) (Auto) 2.1 % Basophils (%) (Auto) 0.1 % Neutrophils # (Auto) 7.03 K/uL Lymphocytes # (Auto) 0.57 K/uL Monocytes # (Auto) 0.54 K/uL Eosinophils # (Auto) 0.18 K/uL Basophils # (Auto) 0.01 K/uL RDW Standard Deviation 51.5 fL RDW Coefficient of Variation 16.5 % Immature Granulocyte % (Auto) 1.1 % Immature Granulocyte # (Auto) 0.09 K/uL Red Blood Cell Morphology Unremarkable Absolute Reticulocyte Count 0.04 10^6/uL Percent Reticulocyte Count 1.7 % Sodium Level 133 mmol/L Potassium Level 4.2 mmol/L Chloride Level 96 mmol/L Carbon Dioxide Level 27 mmol/L Anion Gap 10.0 mmol/L Blood Urea Nitrogen 17 mg/dl Creatinine 1.10 mg/dl Est Creatinine Clear Calc Drug Dose 52.8 ml/min Estimated GFR () 58.1 Estimated GFR (Non- 50.1 BUN/Creatinine Ratio 15.5 Random Glucose 300 mg/dl Calcium Level 8.6 mg/dl Total Creatine Kinase 17 U/L Assessment and Plan Left lower extremity wound: - change abx to bactrim per ID recommendations (pending bone results, of course) - wound vac/local care - w bleeding/vac situation/etc - will need to hold discharge until clearly situated anemia -acute on chronic - acute appearing to be due to foot related blood loss, chronic likely anemia of chronic disease -after extensive discussion - transfuse Uncontrolled type 2 diabetes: - Lantus 27 unit SC BID - BSG ACHS with sliding insulin scale coverage (tighten carb ratio to 1:3) Coronary artery disease, hypertension, diastolic congestive heart failure with ejection fraction 55% on echocardiogram in February 2016, anasarca and atrial fibrillation: - Continue with Digoxin 125 mcg by mouth daily - Continue Cardizem-CD 240 mg daily in the morning - Contiue Mag oxide 400 mg twice a day - Nitroglycerin sublingually when necessary - Potassium extended release 40 mEq by mouth - Hold Xarelto for now due to low hgb and foot blleding. Continue to follow H&H , stable Atrial fibrillation. - Continue Diltiazem and Digoxin; resume xarelto once foot safe/stable History of 2.8 cm right adrenal nodule which she likely reflects an adenoma which needs to be further evaluated by conservation agent in outpatient setting Hypothyroidism: Continue Levothyroxine 250 mcg by mouth daily Chronic obstructive pulmonary disease: Continue Advair 250/50 inhalation twice a day, Spiriva and theophylline 600 mg by mouth at bedtime GERD: Change omeprazole to Pantoprazole 40 mg by mouth daily Right middle lobe nodule. Mild iliac and inguinal lymphadenopathy and short term follow up CAT scan of abdomen and pelvis within next 1 month is recommended \ DVT prophylaxis: - Heparin 5000 units SQ q12 hrs. Resume Xarelto when able
[2016-10-19] MEDS: THEOPHYLLINE 300MG EXTENDED REL TAB PO SCH (20:39)
[2016-10-19] MEDS: SULFAMETHOXAZOLE/TRIMETHOPRIM DS 800/160MG TAB PO SCH (20:40)
[2016-10-20] VITALS (13 sets, daily range): BP systolic 129–154; BP diastolic 61–71; PULSE 74–94; TEMP 36.6–37.1; O2SAT 98–100
[2016-10-20] MEDS: HYDROCODONE/ACETAMOPHEN 5/325MG TAB PO PRN ×4 (02:44→21:19)
[2016-10-20] MEDS: LEVOTHYROXINE SODIUM PO SCH ×2 (05:51)
[2016-10-20] MEDS: EUCERIN CR 120 GM JAR EXT SCH ×2 (08:11→21:17)
[2016-10-20 08:12] LABS: HEMATOCRIT 22.5 % (37-47); MEAN CELL VOLUME 85.2 fL (80-100); MEAN CORPUSCULAR HEMOGLOBIN 27.7 pg (25-34); MEAN CORPUSCULAR HGB CONC 32.4 g/dl (32-36); MEAN PLATELET VOLUME 8.2 fL (7.4-10.4); PLATELET COUNT 263 K/uL (130-400); RED BLOOD COUNT 2.64 M/uL (4.2-5.4); WHITE BLOOD COUNT 8.06 K/uL (4.8-10.8)
[2016-10-20] MEDS: FLUTICASONE/SALMETEROL 250/50 (ADVAIR) 14 PUFF/1 INHALER INH SCH ×2 (08:12→21:17)
[2016-10-20] MEDS: TIOTROPIUM BROMIDE 5 PUFF/90 MCG INH INH SCH (08:13)
[2016-10-20] MEDS: SPIRONOLACTONE 25 MG TAB PO SCH (08:14)
[2016-10-20] MEDS: DILTIAZEM HCL 240 MG CAPCR PO SCH (08:14)
[2016-10-20] MEDS: FERROUS GLUCONATE 324 MG TAB PO SCH (08:15)
[2016-10-20] MEDS: POTASSIUM CHLORIDE 20 MEQ TABCR PO SCH (08:15)
[2016-10-20] MEDS: DIGOXIN 0.125 MG TAB PO SCH (08:16)
[2016-10-20] MEDS: FUROSEMIDE 20 MG TAB PO SCH (08:16)
[2016-10-20] MEDS: SULFAMETHOXAZOLE/TRIMETHOPRIM DS 800/160MG TAB PO SCH ×2 (08:17→21:18)
[2016-10-20] MEDS: MAGNESIUM OXIDE 400 MG TAB PO SCH ×2 (08:17→21:17)
[2016-10-20] MEDS: LACTOBACILLUS ACIDOPHILUS (FLORANEX) TAB PO SCH ×3 (08:18→18:00)
[2016-10-20] MEDS: PANTOprazole SOD 40 MG TAB PO SCH (08:18)
[2016-10-20] MEDS: INSULIN ASPART 100 UNITS/ML 3 ML PEN SC SCH ×4 (08:34→21:16)
[2016-10-20] MEDS: HEPARIN SOD 5000 UNIT/0.5 ML CARP SQ SCH ×2 (08:35→21:16)
[2016-10-20] MEDS: INSULIN GLARGINE SOLOSTAR 100 UNITS/ML 3 ML PEN SC SCH ×2 (08:35→21:14)
[2016-10-20 08:47] LABS: BUN/CREATININE RATIO 16.9 (10-20); CALCIUM 8.6 mg/dl (8.5-10.1); CREATININE 1.1 mg/dl (0.60-1.20); POTASSIUM 4.2 mmol/L (3.5-5.1)
[2016-10-20 08:49] LABS: BASO % 0.1 %; BASO ABS # 0.01 K/uL (0-0.2); COMPLETE YES; HYPERSEGMENTED POLYS 1+; IG% 1.1 %; LYMPH % 6.8 %; LYMPH ABS # 0.55 K/uL (1.2-3.4); MONO % 7.3 %; NEUT % 82.7 %
[2016-10-20] MEDS ORDERED: INSULIN GLARGINE SOLOSTAR 100 UNITS/ML 3 ML PEN SC ONE (11:30)
--- NOTE | 2016-10-20 17:15 | Progress Note ---
Subjective Date of Service: Oct 20, 2016. Subjective Pt evaluation today including: conversation w/ patient, physical exam, chart review, lab review, review of inpatient medication list feeling ok no f/c/s no other problems since transfusion for SNF in AM Problem List Medical Problems: (1) Atrial fibrillation Status: Acute (2) Bifascicular block Status: Acute (3) Cellulitis of both lower extremities Status: Acute (4) Cellulitis of foot, left Status: Acute (5) Cellulitis of left lower leg Status: Acute (6) CHF (congestive heart failure) Status: Acute (7) Constipation Status: Acute (8) Diabetic foot ulcer Status: Acute (9) Electrolyte abnormality Status: Acute (10) Hypokalemia Status: Acute (11) Leukocytosis Status: Acute (12) Sepsis Status: Acute (13) UTI (urinary tract infection) Status: Acute Review of Systems ros otherwise negative except for as above Objective Vital Signs Date Time Temp Pulse Resp B/P Pulse Ox O2 Delivery O2 Flow Rate FiO2 10/20/16 16:00 100 Nasal Cannula 3.0 10/20/16 15:34 36.9 90 20 154/71 99 3.0 10/20/16 12:00 100 Nasal Cannula 3.0 10/20/16 11:33 36.6 91 20 137/61 100 Nasal Cannula 3.0 10/20/16 08:16 77 10/20/16 08:00 99 Nasal Cannula 3.0 10/20/16 07:44 36.9 88 22 134/71 99 Nasal Cannula 10/20/16 04:48 36.8 89 18 135/65 98 Nasal Cannula 3.0 10/20/16 03:51 99 Nasal Cannula 3.0 10/20/16 00:30 99 Nasal Cannula 3.0 10/20/16 00:16 37.1 74 20 129/62 98 Nasal Cannula 3.0 10/19/16 20:30 37.1 81 20 128/65 99 3.0 10/19/16 20:15 37.1 88 20 132/68 97 3.0 10/19/16 20:00 99 Nasal Cannula 3.0 10/19/16 19:15 36.9 75 20 146/65 96 2.0 10/19/16 18:45 37.2 78 20 136/70 100 2.0 10/19/16 18:30 37.0 81 20 131/63 95 2.0 10/19/16 18:15 37.1 85 20 130/66 Physical Exam General Appearance: no apparent distress Eyes: EOMI ENT: hearing grossly normal Neck: trachea midline Respiratory/Chest: no respiratory distress, no accessory muscle use Extremities: normal range of motion Neurologic/Psychiatric: it intern II-XII nml as tested, alert, normal mood/affect Skin: normal color, warm/dry Laboratory Results Last 24 Hours Test 10/19/16 20:15 10/20/16 07:54 10/20/16 07:55 10/20/16 11:55 Bedside Glucose 188 mg/dl 312 mg/dl 255 mg/dl White Blood Count 8.06 K/uL Red Blood Count 2.64 M/uL Hemoglobin 7.3 g/dL Hematocrit 22.5 % Mean Corpuscular Volume 85.2 fL Mean Corpuscular Hemoglobin 27.7 pg Mean Corpuscular Hemoglobin Concent 32.4 g/dl Platelet Count 263 K/uL Mean Platelet Volume 8.2 fL Neutrophils (%) (Auto) 82.7 % Lymphocytes (%) (Auto) 6.8 % Monocytes (%) (Auto) 7.3 % Eosinophils (%) (Auto) 2.0 % Basophils (%) (Auto) 0.1 % Neutrophils # (Auto) 6.66 K/uL Lymphocytes # (Auto) 0.55 K/uL Monocytes # (Auto) 0.59 K/uL Eosinophils # (Auto) 0.16 K/uL Basophils # (Auto) 0.01 K/uL RDW Standard Deviation 50.8 fL RDW Coefficient of Variation 16.5 % Immature Granulocyte % (Auto) 1.1 % Immature Granulocyte # (Auto) 0.09 K/uL Hypersegmented Polys 1+ Sodium Level 133 mmol/L Potassium Level 4.2 mmol/L Chloride Level 96 mmol/L Carbon Dioxide Level 28 mmol/L Anion Gap 9.0 mmol/L Blood Urea Nitrogen 19 mg/dl Creatinine 1.10 mg/dl Est Creatinine Clear Calc Drug Dose 52.6 ml/min Estimated GFR () 58.1 Estimated GFR (Non- 50.1 BUN/Creatinine Ratio 16.9 Random Glucose 293 mg/dl Calcium Level 8.6 mg/dl Test 10/20/16 16:23 Bedside Glucose 253 mg/dl Assessment and Plan Left lower extremity wound: - changed abx to bactrim per ID recommendations (pending bone results, of course ) - wound vac/local care - w bleeding/vac situation/etc - will need to hold discharge until clearly situated (appearing stable for transfer 10/21) anemia -acute on chronic - acute appearing to be due to foot related blood loss, chronic likely anemia of chronic disease -after extensive discussion - transfused -- Hgb improved some Uncontrolled type 2 diabetes: - Lantus 32 units BID - BSG ACHS with sliding insulin scale coverage (tightened carb ratio to 1:3) Coronary artery disease, hypertension, diastolic congestive heart failure with ejection fraction 55% on echocardiogram in February 2016, anasarca and atrial fibrillation: - Continue with Digoxin 125 mcg by mouth daily - Continue Cardizem-CD 240 mg daily in the morning - Contiue Mag oxide 400 mg twice a day - Nitroglycerin sublingually when necessary - Potassium extended release 40 mEq by mouth - Hold Xarelto for now due to low hgb and foot blleding. Continue to follow H&H , stable Atrial fibrillation. - Continue Diltiazem and Digoxin; resume xarelto once foot safe/stable History of 2.8 cm right adrenal nodule which she likely reflects an adenoma which needs to be further evaluated by horticulture supervisor in outpatient setting Hypothyroidism: Continue Levothyroxine 250 mcg by mouth daily Chronic obstructive pulmonary disease: Continue Advair 250/50 inhalation twice a day, Spiriva and theophylline 600 mg by mouth at bedtime GERD: Change omeprazole to Pantoprazole 40 mg by mouth daily Right middle lobe nodule. Mild iliac and inguinal lymphadenopathy and short term follow up CAT scan of abdomen and pelvis within next 1 month is recommended \ DVT prophylaxis: - Heparin 5000 units SQ q12 hrs. Resume Xarelto when able (probably will be in the next 1-2 wks as outpt since bleeding just occurred w foot wound)
[2016-10-20] MEDS ORDERED: SULF-183 PO (17:19)
[2016-10-20] MEDS ORDERED: LCTX PO (17:19)
[2016-10-20] MEDS ORDERED: NVLGIPEN SC (17:19)
[2016-10-20] MEDS ORDERED: HYDR-5688 PO (17:19)
[2016-10-20] MEDS ORDERED: INSDGIPEN SC (17:19)
[2016-10-20] MEDS ORDERED: HPRIS5M SQ (17:19)
[2016-10-20] MEDS ORDERED: TRAM-10 PO (17:19)
--- NOTE | 2016-10-20 17:22 | Discharge Instructions ---
Discharge Instructions Admission Reason for Admission: Afib, Wound Infection Discharge Discharge Diagnosis / Problem: foot ulcer w presumptive osteomyelitis Discharge Goals Goal(s): Diagnostic testing, Therapeutic intervention Activity Recommendations Activity Level: Assistance Required (nonweight bearing affected foot) Therapies: Physical Therapy, Occupational Therapy . Additional Information Patient informed of condition: Yes Advance Directives: Yes DNR: Yes Level of Care: Skilled Communicable Disease: No Prognosis: Stable Instructions / Follow-Up Instructions / Follow-Up CBC, BMP 2/15 then weekly x 3 then reassess wound vac/wound care instructions per [facility] wound clinic will need ongoing follow up at wound clinic for ongoing care of foot ulcer with exposed bone Current Hospital Diet Patient's current hospital diet: Diabetes Type 2 Diet Discharge Diet Recommended Diet: Diabetes Type 2 Diet Pending Studies Studies pending at discharge: yes List of pending studies: bone biopsy and culture Laboratory Results Hemoglobin A1c Test 09/20/16 14:53 Range/Units Estimated Average Glucose 105 mg/dl Hemoglobin A1c 5.3 4.5-5.6 % Lipid Panel Test 08/19/16 05:47 Range/Units Triglycerides Level 170 H 0-150 mg/dl Cholesterol Level 125 0-200 mg/dl HDL Cholesterol 48 mg/dl Cholesterol/HDL Ratio 2.6 LDL Cholesterol, Calculated 43 mg/dl Medical Emergencies . Who to Call and When: Medical Emergencies: If at any time you feel your situation is an emergency, please call 911 immediately. . Non-Emergent Contact Non-Emergency issues call your: Primary Care Provider, Specialist (wound clinic ) . . "Provider Documentation" section prepared by Jensen Limon. Core Measure Problem Core Measures: None
[2016-10-20] MEDS: THEOPHYLLINE 300MG EXTENDED REL TAB PO SCH (21:18)
[2016-10-21] VITALS: O2SAT 99
[2016-10-21] MEDS: HYDROCODONE/ACETAMOPHEN 5/325MG TAB PO PRN ×2 (03:26→13:10)
[2016-10-21 03:48] VITALS: BP 121/58; PULSE 75; TEMP 36.8; O2SAT 98
[2016-10-21 04:00] VITALS: O2SAT 99
[2016-10-21] MEDS: LEVOTHYROXINE SODIUM PO SCH ×2 (05:44)
[2016-10-21 06:24] LABS: BASO % 0.1 %; BASO ABS # 0.01 K/uL (0-0.2); EOS % 1.9 %; HEMATOCRIT 23.9 % (37-47); IG% 1.1 %; LYMPH % 7.7 %; LYMPH ABS # 0.74 K/uL (1.2-3.4); MEAN CELL VOLUME 83.9 fL (80-100); MEAN CORPUSCULAR HEMOGLOBIN 27.4 pg (25-34); MEAN CORPUSCULAR HGB CONC 32.6 g/dl (32-36); MEAN PLATELET VOLUME 8.1 fL (7.4-10.4); MONO % 6.2 %; PLATELET COUNT 290 K/uL (130-400); RED BLOOD COUNT 2.85 M/uL (4.2-5.4); WHITE BLOOD COUNT 9.62 K/uL (4.8-10.8)
[2016-10-21 06:57] LABS: COMPLETE YES
[2016-10-21 07:02] LABS: BUN/CREATININE RATIO 14.9 (10-20); CALCIUM 8.9 mg/dl (8.5-10.1); CREATININE 1.2 mg/dl (0.60-1.20); POTASSIUM 4.2 mmol/L (3.5-5.1)
[2016-10-21 07:33] VITALS: BP 148/65; PULSE 94; TEMP 36.7; O2SAT 96
[2016-10-21] MEDS: POTASSIUM CHLORIDE 20 MEQ TABCR PO SCH (09:14)
[2016-10-21] MEDS: FERROUS GLUCONATE 324 MG TAB PO SCH (09:15)
[2016-10-21] MEDS: DIGOXIN 0.125 MG TAB PO SCH (09:19)
[2016-10-21] MEDS: PANTOprazole SOD 40 MG TAB PO SCH (09:20)
[2016-10-21] MEDS: DILTIAZEM HCL 240 MG CAPCR PO SCH (09:20)
[2016-10-21] MEDS: MAGNESIUM OXIDE 400 MG TAB PO SCH (09:20)
[2016-10-21] MEDS: SULFAMETHOXAZOLE/TRIMETHOPRIM DS 800/160MG TAB PO SCH (09:21)
[2016-10-21] MEDS: LACTOBACILLUS ACIDOPHILUS (FLORANEX) TAB PO SCH ×2 (09:21→13:00)
[2016-10-21] MEDS: SPIRONOLACTONE 25 MG TAB PO SCH (09:21)
[2016-10-21] MEDS: FUROSEMIDE 20 MG TAB PO SCH (09:22)
[2016-10-21] MEDS: FLUTICASONE/SALMETEROL 250/50 (ADVAIR) 14 PUFF/1 INHALER INH SCH (09:22)
[2016-10-21] MEDS: EUCERIN CR 120 GM JAR EXT SCH (09:34)
[2016-10-21] MEDS: INSULIN GLARGINE SOLOSTAR 100 UNITS/ML 3 ML PEN SC SCH (09:41)
[2016-10-21] MEDS: HEPARIN SOD 5000 UNIT/0.5 ML CARP SQ SCH (09:41)
[2016-10-21] MEDS: TIOTROPIUM BROMIDE 5 PUFF/90 MCG INH INH SCH (10:36)
[2016-10-21] MEDS: INSULIN ASPART 100 UNITS/ML 3 ML PEN SC SCH ×2 (10:36→13:07)
[2016-10-21] MEDS ORDERED: AMOX1TAB43 PO (10:37)
[2016-10-21] MEDS ORDERED: ENOX80IN SQ (10:55)
--- NOTE | 2016-10-21 10:57 | Discharge Summary ---
Discharge Summary Admission Date: Oct 15, 2016 at 15:18 Discharge Date: Oct 21, 2016 Discharge Disposition: assisted facility Problems/Secondary Diagnoses: Left foot diabetic cellulitis/abscess S/P I&D and wound VAC Diabetes mellitus--continue Novolin 70/30 twice a day, CAD/hypertension/CHF/anasarca Hypothyroidism COPD GERD AINSLEY/CKD 1.4 cm thickened endometrium and probable history of endometrial polyp in the past Chief Of Planning consult appreciated The plan would be to have her follow up with Dr. Becker ( her doctor in the past), for the hysterosonogram upon discharged Suspected liver cirrhosis with manifestations of portal hypertension/ splenomegaly and varices formation on CT abdomen 7 mm right lower lobe nodule and a possible right and middle lobe nodule which can be followed up as an out patient Mild aortoiliac and inguinal lymphadenopathy. This could be reactive given lower extremity cellulitis although a neoplastic process could appear similar. A short-term follow-up CT of the abdomen and pelvis in 2 months is recommended. 2.8 cm right adrenal nodule which likely reflects an adenoma Afib Immunizations: Have You Had Influenza Vaccine: Unknown Influenza Vaccine Date: Jun 23, 2013 History of Tetanus Vaccine?: Unknown History of Pneumococcal: Unknown Pneumococcal Date: Jun 23, 2011 History of Hepatitis B Vaccine: Unknown Medication Reconciliation New Medications: Amoxicillin & Pot Clavulanate (Amoxicillin/Clavulanate P) 1 Tab Tab 1 TAB PO BID for 14 Days, #28 TAB Enoxaparin (Lovenox) 80 Mg/0.8 Ml Inj 90 MG SQ Q24H for 30 Days, SYR Insulin Aspart (Novolog Flexpen) 100 Units/Ml Inj 0 UNITS SC ACHS, #1 Insulin Glargine (Lantus Solostar) 100 Unit/Ml Inj 32 UNIT SC BID for 30 Days Lactobacillus Acidophilus (Floranex) 1 Tab Tab 2 TAB PO TIDM, #90 TAB Sulfamethoxazole-Trimethoprim (Smz-Tmp Ds) 1 Tab Tab 1 TAB PO Q12, #30 TAB Continued Medications: Acetaminophen (Tylenol) 325 Mg Tab 650 MG PO Q8H PRN for mild pain or fever, TAB Digoxin (Digoxin) 0.125 Mg Tab 0.125 MCG PO QAM Diltiazem Hcl Extended Release (Diltiazem Hcl) 240 Mg Cap 240 MG PO QAM Emollient (Eucerin) 1 Lot Lot 1 APPLN TOP BID apply to legs Ferrous Gluconate (Ferrous Gluconate) 324 Mg Tab 324 MG PO DAILY, TAB Fluticasone Prop/Salmeterol (Advair Diskus 250/50 60 Dose) 1 Ea Aerp 1 PUFF INH BID, INHALER Furosemide (Lasix) 20 Mg Tab 1 TAB PO DAILY for 30 Days, #30 TAB 5 Refills Hydrocodone/Acetaminophen 5MG/325MG ([place] 5MG/325MG) Tab 1 TAB PO Q6H PRN for mod Pain for 30 Days, #30 TAB (This prescription has been renewed) PRN PAIN Levothyroxine Sodium (Levothyroxine Sodium) 50 Mcg Tab 50 MCG PO DAILY, TAB TAKE WITH 200MCG = 250MCG DAILY. Levothyroxine Sodium (Synthroid) 200 Mcg Tab 200 MCG PO DAILY TAKE WITH 50MCG TO TOTAL 250MCG Magnesium Oxide (Mag-Ox) 400 Mg Tab 400 MG PO BID, TAB Nitroglycerin (Nitrostat) 0.4 Mg Tab 0.4 MG UT PRN, BTL NEEDED FOR CHEST PAIN : ONE TABLET, UNDER THE TONGUE, EVERY 5 MINUTES UP TO 3 DOSES. Omeprazole (Prilosec) 20 Mg Cap 20 MG PO DAILY, CAP Oxygen (Oxygen) Gas 3 LITERS NA CONTINOUS Polyethylene Glycol 3350 (Miralax) 1 Pow Pow 17 GM PO DAILY PRN for Constipation, #527 GM Potassium Chloride (Klor-Con M20) 20 Meq Tabcr 20 MEQ PO DAILY for 30 Days, #30 TAB 2 Refills Spironolactone (Spironolactone) 25 Mg Tab 25 MG PO QAM for 30 Days, #30 TAB Theophylline (Theophylline Cr) 300 Mg Tab 600 MG PO HS Tiotropium [place] (Spiriva Handihaler) 30 Puff/540 Mcg Aerp 1 CAP INH DAILY, INHALER Tramadol (Ultram) 50 Mg Tab 50 MG PO Q8H PRN for Pain for 30 Days, #30 TAB (This prescription has been renewed) Discontinued Medications: Insulin Aspart 70/30 (Novolog Mix 70/30) Susp 65 UNITS SC BIDM for 30 Days, #1 BTL Discharge Exam needs to stop SQ lovenox and start xarelto as soon as wound vac removed Review of Systems: Constitutional: No chills, No fatigue, No fever, No problem reported, No sweats, No weakness, No weight loss Eyes: No diplopia, No discharge, No eye pain, No problem reported, No redness, No worsening of vision ENT: No dental problems, No hearing loss, No nasal symptoms, No problem reported, No sore throat, No tinnitus, No trouble swallowing, No unusual epistaxis Respiratory: No cough, No dyspnea at rest, No dyspnea on exertion, No hemoptysis, No problem reported, No shortness of breath, No sputum, No wheezing Cardiovascular: No PND, No chest pain, No claudication, No edema, No orthopnea, No palpitations, No problem reported Abdomen: No GI bleeding, No constipation, No diarrhea, No nausea, No pain, No problem reported, No vomiting Musculoskeletal: + problem reported (left foot vac, looks good , in place), No calf pain, No joint pain, No muscle pain, No swelling Neurologic: No balance problems, No memory loss, No numbness/tingling, No paralysis, No problem reported, No vertigo, No weakness Endocrine: No excessive thirst, No excessive urination, No fatigue, No problem reported Hematologic / Lymphatic: No abnormal bleeding/bruising, No clotting problems , No night sweats, No problem reported, No swollen lymph nodes Integumentary: No bleeding, No color change, No itch, No new/changing skin lesions, No problem reported, No rash Hospital Course 71 years old woman with Hx of diabetes and left lower Ext cellulitis S/P wound vac presented with worsening cellulitis she was admitted to [facility] and found to have the current problems Left foot diabetic cellulitis/abscess S/P I&D and wound VAC consulted wound care and ID started Abx daptomycin 550 mg IV daily, and Zosyn 4.5 G IV every 8 hours. ( last admission culture of ulcer grew group B strep and MRSA last admission. this admission it grew Enterobacter coleaca sensitive to bactrim and enterococcus fecalis sensitive to PCN) as per ID upon d/c she was discharged on po augmentin 875mg po bid and bactrim DS BID for 14 days, she will follow up with wound care clinic and Dr. Carrasco will see her there, Also she was discharged on lactinex for C diff prophylaxis. she will get BMP every 3 days by PCP to follow up renal function and potassium level Diabetes mellitus--continued Novolin 70/30 twice a day upon discharge but was decreased to 65 uints BID as her HgbA1C was 5.3, she was also switched to insulin pen, Had multiple episodes of hypoglycemia CAD/hypertension/CHF/anasarca discharged on 20mg po daily she was started on aldactone 25mg po daily Hypothyroidism--continue levothyroxine sodium at 250 g by mouth daily. TSH was 4.8 COPD--continue Advair Diskus 250/50 one inhalation twice a day, Spiriva HandiHaler 1 inhalation every morning, and theophylline CR 600 mg by mouth at bedtime. GERD--change omeprazole 20 mg by mouth daily to pantoprazole 40 mg by mouth daily. 1.4 cm thickened endometrium and probable history of endometrial polyp in the past Chief Of Planning consult appreciated The plan would be to have her follow up with Dr. Becker ( her doctor in the past), for the hysterosonogram upon discharged Suspected liver cirrhosis with manifestations of portal hypertension/ splenomegaly and varices formation on CT abdomen 7 mm right lower lobe nodule and a possible right and middle lobe nodule which can be followed up as an out patient, was accidentally found on CT scan was accidentally found on CT scan Mild aortoiliac and inguinal lymphadenopathy. This could be reactive given lower extremity cellulitis although a neoplastic process could appear similar. A short-term follow-up CT of the abdomen and pelvis in 2 months is recommended. 2.8 cm right adrenal nodule which likely reflects an adenoma was accidentally found on CT scan Afib currently rate controlled discharge on Lovenox 1mg/kg daily until wound vac removal then she can be switched to xarelto was found today to be stable enough for discharge This discharge process took 45 minutes time, includes examination of the patient, discharge planning, medication reconciliation, and communication with other providers. Total Time Spent: Greater than 30 minutes This includes examination of the patient, discharge planning, medication reconciliation, and communication with other providers. Discharge Instructions Please refer to the electronic Patient Visit Report (Discharge Instructions) for additional information.
[2016-10-21 11:43] VITALS: BP 151/66; TEMP 36.8; O2SAT 96
[2016-10-21 13:45] VITALS: BP 151/66; PULSE 80; TEMP 36.8; O2SAT 96
[2016-10-21 14:26] VITALS: Ht 162.6 cm; Wt 96.8 kg
[2016-10-21] MEDS ORDERED: NVLGI7030 SC (14:42)
[2016-11-05] MEDS ORDERED: AMOX500T PO (13:08)
[2016-11-25] MEDS ORDERED: LINE1TAB6 PO (16:02)
[2016-11-25] MEDS ORDERED: LEVO1TAB33 PO (16:02)
[2017-01-02] MEDS ORDERED: NRN600 PO (14:36)
[2017-01-02] MEDS ORDERED: LSX40 PO (14:36)
[2017-01-02] MEDS ORDERED: FRRS300 PO (14:36)
[2017-01-02] MEDS ORDERED: LVQ500 PO (14:36)
[2017-01-02] MEDS ORDERED: LNX25 PO (14:36)
[2017-01-21] MEDS ORDERED: INSDGIPEN SC (12:54)
[2017-01-22] MEDS ORDERED: HYDR-3983 PO (15:45)
[2017-01-22] MEDS ORDERED: LORA-741 PO (15:45)
== END 2016-10-21 16:22 | DRG 623 ==
LOC: ENRESERVDT → ENRESERVTM → EDBD 12:09 → C.EDD 12:10 → C.MED 15:18 → UNDOADMIN 15:18 → EDBEDREQ 15:39 → C.MED 10-16 08:12
PROVIDERS: ADMIT Hospitalist; ATTEND Family Medicine
PROC: 0JBR0ZZ Excision of Left Foot Subcutaneous Tissue and Fascia, Open Approach (ICD-10-PCS; principal; 2016-10-16)
PROC: 0QBM0ZX Excision of Left Tarsal, Open Approach, Diagnostic (ICD-10-PCS; 2016-10-18)
DX: E11.622 Type 2 diabetes mellitus with other skin ulcer (principal); I50.32 Chronic diastolic (congestive) heart failure; L03.116 Cellulitis of left lower limb; D62 Acute posthemorrhagic anemia; M86.9 Osteomyelitis, unspecified; N17.9 Acute kidney failure, unspecified; L97.529 Non-pressure chronic ulcer of other part of left foot with unspecified severity; E11.22 Type 2 diabetes mellitus with diabetic chronic kidney disease; E11.65 Type 2 diabetes mellitus with hyperglycemia; I12.9 Hypertensive chronic kidney disease with stage 1 through stage 4 chronic kidney disease, or unspecified chronic kidney disease; N18.3 Chronic kidney disease, stage 3 (moderate); E03.9 Hypothyroidism, unspecified; J44.9 Chronic obstructive pulmonary disease, unspecified; I48.91 Unspecified atrial fibrillation; K21.9 Gastro-esophageal reflux disease without esophagitis; I25.10 Atherosclerotic heart disease of native coronary artery without angina pectoris; D63.8 Anemia in other chronic diseases classified elsewhere; R91.1 Solitary pulmonary nodule; Z66 Do not resuscitate; Z79.2 Long term (current) use of antibiotics; Z79.4 Long term (current) use of insulin; Z79.899 Other long term (current) drug therapy

== ENCOUNTER → 2016-10-23 | Outpatient (CLI) | payer BC ==
[~2016-10-23] MED LIST changes: +ADVIN25/60 INH; -ADVIN25050 INH; +AMOX1TAB43 PO; +AMOX500T PO; +ASCO500T16 PO; +ATV5 PO; -CRDCD240 PO; +CYM20 PO; +DILT240C75 PO; +ENOX80IN SQ; +FERR325T18 PO; -FERR325T74 PO; +FRRS300 PO; +HYDR-3983 PO; +IMD/2 PO; +INSDGIPEN SC; +IPRASOL4 INH; +LEVO1TAB33 PO; +LEVO200T PO; -LEVO200T20 PO; +LINE1TAB6 PO; +LNX25 PO; +LORA-741 PO; +LSX40 PO; +LVQ500 PO; +MRPSR15 PO; +NRN300 PO; +NRN600 PO; +NVLGIPEN SC; +SPRIN/30 INH; +SULF-183 PO; -TIOTCAP INH; +XRL10 PO; -insu
[2016-10-23 09:15] LABS: BLOOD UREA NITROGEN 23 mg/dl (7-18); CALCIUM 8.7 mg/dl (8.5-10.1); CARBON DIOXIDE 26 mmol/L (21-32); CHLORIDE 99 mmol/L (98-107); EOS % 2.3 %; GLUCOSE 251 mg/dl (70-99); HEMATOCRIT 23.3 % (37-47); LYMPH % 8.3 %; LYMPH ABS # 0.59 K/uL (1.2-3.4); MEAN CELL VOLUME 83.8 fL (80-100); MEAN CORPUSCULAR HGB CONC 32.2 g/dl (32-36); MEAN PLATELET VOLUME 8.1 fL (7.4-10.4); NEUT % 78.4 %; PLATELET COUNT 282 K/uL (130-400); POTASSIUM 4.4 mmol/L (3.5-5.1); RED BLOOD COUNT 2.78 M/uL (4.2-5.4); SODIUM 135 mmol/L (136-145); WHITE BLOOD COUNT 7.09 K/uL (4.8-10.8)
[2016-10-23 09:44] LABS: COMPLETE YES
== END ==
LOC: C.LABUPNIT 08:58
PROVIDERS: ATTEND Family Medicine
DX: R60.9 Edema, unspecified (principal); N17.9 Acute kidney failure, unspecified

== ENCOUNTER → 2016-10-27 | Outpatient (CLI) | payer BC ==
[2016-10-27 09:22] LABS: ALT/SGPT 10 U/L (12-78); BLOOD UREA NITROGEN 20 mg/dl (7-18); BUN/CREATININE RATIO 16.8 (10-20); CALCIUM 8.7 mg/dl (8.5-10.1); CARBON DIOXIDE 26 mmol/L (21-32); CHLORIDE 105 mmol/L (98-107); GLUCOSE 118 mg/dl (70-99); POTASSIUM 4.3 mmol/L (3.5-5.1); SODIUM 141 mmol/L (136-145)
[2016-10-27 09:25] LABS: ALB/GLOB RATIO 0.4 (0.9-2); ALKALINE PHOSPHATASE 114 U/L (45-117); AST/SGOT 10 U/L (15-37)
== END ==
LOC: C.LABUPNIT 10:25
PROVIDERS: ATTEND Family Medicine
DX: D64.9 Anemia, unspecified (principal); E87.6 Hypokalemia; N17.9 Acute kidney failure, unspecified

== ENCOUNTER → 2016-10-30 | Outpatient (CLI) | payer BC ==
[2016-10-30 09:11] LABS: HEMATOCRIT 23.8 % (37-47); MEAN CELL VOLUME 84.7 fL (80-100); MEAN CORPUSCULAR HGB CONC 31.9 g/dl (32-36); MEAN PLATELET VOLUME 8.1 fL (7.4-10.4); PLATELET COUNT 267 K/uL (130-400); RED BLOOD COUNT 2.81 M/uL (4.2-5.4); WHITE BLOOD COUNT 6.34 K/uL (4.8-10.8)
[2016-10-30 09:18] LABS: BLOOD UREA NITROGEN 25 mg/dl (7-18); BUN/CREATININE RATIO 19.2 (10-20); CALCIUM 8.9 mg/dl (8.5-10.1); CARBON DIOXIDE 25 mmol/L (21-32); CHLORIDE 101 mmol/L (98-107); GLUCOSE 220 mg/dl (70-99); POTASSIUM 4.6 mmol/L (3.5-5.1); SODIUM 135 mmol/L (136-145)
== END ==
LOC: C.LABUPNIT 08:59
PROVIDERS: ATTEND Family Medicine
DX: N17.9 Acute kidney failure, unspecified (principal); E03.9 Hypothyroidism, unspecified

== ENCOUNTER → 2016-11-06 | Outpatient (CLI) | payer BC ==
[~2016-11-06] MED LIST changes: -AMOX1TAB43 PO
[2016-11-06 09:22] LABS: BLOOD UREA NITROGEN 18 mg/dl (7-18); BUN/CREATININE RATIO 17.8 (10-20); CALCIUM 9.1 mg/dl (8.5-10.1); CARBON DIOXIDE 26 mmol/L (21-32); CHLORIDE 104 mmol/L (98-107); GLUCOSE 96 mg/dl (70-99); POTASSIUM 4.1 mmol/L (3.5-5.1); SODIUM 138 mmol/L (136-145)
== END ==
LOC: C.LABUPNIT 08:55
PROVIDERS: ATTEND Family Medicine
DX: N17.9 Acute kidney failure, unspecified (principal)

== ENCOUNTER → 2016-11-13 | Outpatient (CLI) | payer BC ==
[~2016-11-13] MED LIST changes: +ASCOCRY2; +COLE5GRA PO; +DIGO1TAB90 PEG; +DULO-24 PO; +FERR1TAB13 PO; +GABA-113 PO; +HMLI7525 SC; +INSDGI SC; +LACT1TAB4 PO; +MOML PO; +MULT-116 PO; +MULT-190 PO; +MULTTAB63 PO; +NVLG SC; +RANI150C4 PO; +RIVA1.5T PO; +SALI0.6510 NAE; +SODIENE PR
[2016-11-13 09:27] LABS: BASO % 0.2 %; BASO ABS # 0.01 K/uL (0-0.2); EOS % 5.8 %; HEMATOCRIT 25.3 % (37-47); IG% 1.2 %; LYMPH ABS # 0.74 K/uL (1.2-3.4); MEAN CELL VOLUME 86.1 fL (80-100); MEAN CORPUSCULAR HEMOGLOBIN 26.5 pg (25-34); MEAN CORPUSCULAR HGB CONC 30.8 g/dl (32-36); MEAN PLATELET VOLUME 8.5 fL (7.4-10.4); MONO % 11.6 %; NEUT % 68.2 %; PLATELET COUNT 218 K/uL (130-400); RED BLOOD COUNT 2.94 M/uL (4.2-5.4); WHITE BLOOD COUNT 5.68 K/uL (4.8-10.8)
[2016-11-13 10:25] LABS: ANISOCYTOSIS PRESENT; COMPLETE YES; POLYCHROMASIA 1+
--- NOTE | 2016-11-14 10:00 | CODING QUERY NO DIAGNOSIS ---
: 1945 TREATMENT RENDERED WITHOUT A DIAGNOSIS To promote full compliance with coding requirements relating to patient care, physician participation is requested in all cases of physician coder uncertainty. Please assist us with providing a diagnosis/symptom for the test(s) below: A diagnosis/symptom was not documented on your Order. A valid diagnosis/symptom is required to bill all insurances. Please remember that we are unable to code a diagnosis of rule out, probable, possible, questionable, or suspected. Tests that require a diagnosis: DOS: 11/13/16 * CBC with Auto Differential DIAGNOSIS: Provider Signature: Date: Thank you Caryl Haynes Health Information Management Once completed, please kindly fax back to [phone] For questions please call [phone]
== END ==
LOC: C.LABUPNIT 09:03
PROVIDERS: ATTEND Family Medicine
DX: D64.9 Anemia, unspecified (principal); M86.9 Osteomyelitis, unspecified

== ENCOUNTER → 2016-11-27 | Outpatient (CLI) | payer BC ==
[~2016-11-27] MED LIST changes: -ENOX80IN SQ; -NVLGI7030 SC; -SULF-183 PO
[2016-11-27 09:36] LABS: BLOOD UREA NITROGEN 17 mg/dl (7-18); BUN/CREATININE RATIO 14.2 (10-20); CARBON DIOXIDE 29 mmol/L (21-32); CHLORIDE 104 mmol/L (98-107); GLUCOSE 134 mg/dl (70-99); POTASSIUM 4.1 mmol/L (3.5-5.1); SODIUM 140 mmol/L (136-145)
[2016-11-27 09:46] LABS: THYROID STIMULATING HORMONE 0.466 uIu/ml (0.300-4.500)
== END | disposition home or self-care (01) ==
LOC: C.LABUPNIT 09:07
PROVIDERS: ATTEND Family Medicine
DX: E03.9 Hypothyroidism, unspecified (principal); E11.621 Type 2 diabetes mellitus with foot ulcer

== ENCOUNTER → 2016-11-29 | Outpatient (CLI) | payer BC ==
[~2016-11-29] MED LIST changes: -COLE5GRA PO; -DIGO1TAB90 PEG; -DULO-24 PO; -FERR1TAB13 PO; -GABA-113 PO; -HMLI7525 SC; -INSDGI SC; -LACT1TAB4 PO; -MOML PO; +MULT-116; -MULT-116 PO; -MULT-190 PO; -MULTTAB63 PO; -NVLG SC; -RANI150C4 PO; -RIVA1.5T PO; -SALI0.6510 NAE; -SODIENE PR
--- NOTE | 2016-11-29 16:43 | DIAGNOSTIC IMAGING REPORT ---
CT left foot and ankle LEFT LOWER EXTREMITY WITH CLINICAL HISTORY: NON HEALING WOUND LEFT FOOT TECHNIQUE: Transaxial acquisition with multi axial reformatted images COMPARISON STUDY: None FINDINGS: Destructive change of all major bones of the ankle. The talus is completely fragmented with soft tissue replacing mass. There are destructive changes at virtually all of the proximal row of the tarsal bones as well as anterior superior aspect of the calcaneus. Fluid pockets are noted throughout combine with solid infiltrative soft tissue change. The peripheral cellulitis throughout the bulk of the foot and ankle. There is moderate impaction of the tibia in relation to the IMPRESSION: Near complete destruction of all major osseous structures of the ankle and proximal foot. Fragmentation at virtually all osseous structures with impaction of the tibia in to the region of the talus which is completely destroyed. Appearance consistent with generalized osteomyelitis with destructive change throughout the bulk of the ankle is no significant composite proximal foot. Superimposed cellulitis throughout Electronically signed by: Castillo Thompson M.D. 11/29/2016 4:42 PM Dictated Date/Time: 11/29/2016 4:37 PM
== END | disposition home or self-care (01) ==
LOC: C.CTS 15:29
PROVIDERS: ATTEND Hospitalist
DX: L97.529 Non-pressure chronic ulcer of other part of left foot with unspecified severity (principal); L03.116 Cellulitis of left lower limb

== ENCOUNTER → 2016-12-11 | Outpatient (CLI) | payer BC ==
[~2016-12-11] MED LIST changes: -AMOX500T PO; +COLE5GRA PO; +DIGO1TAB90 PEG; +DULO-24 PO; +FERR1TAB13 PO; +GABA-113 PO; +HMLI7525 SC; +INSDGI SC; +LACT1TAB4 PO; +MOML PO; -MULT-116; +MULT-116 PO; +MULT-190 PO; +MULTTAB63 PO; +NVLG SC; +RANI150C4 PO; +RIVA1.5T PO; +SALI0.6510 NAE; +SODIENE PR
== END | disposition home or self-care (01) ==
LOC: C.RDSM 14:52
PROVIDERS: ATTEND Physical Medicine & Rehabilitation Sports Medicine
DX: S91.302A Unspecified open wound, left foot, initial encounter (principal); M25.572 Pain in left ankle and joints of left foot; X58.XXXA Exposure to other specified factors, initial encounter

== ENCOUNTER 2016-12-13 13:53 | Inpatient (IN) | payer BC, OTHER ==
[~2016-12-13] VITALS: Ht 160 cm; Wt 91.7 kg
[~2016-12-13 13:53] MED LIST changes: -ASCO500T16 PO; -ASCOCRY2; -ATV5 PO; -COLE5GRA PO; -CYM20 PO; -DIGO1TAB90 PEG; -DULO-24 PO; -FERR1TAB13 PO; -FRRS300 PO; -GABA-113 PO; -HMLI7525 SC; -HYDR-3983 PO; -IMD/2 PO; -INSDGI SC; -INSDGIPEN SC; -IPRASOL4 INH; -LACT1TAB4 PO; -LNX25 PO; -LORA-741 PO; -LSX40 PO; -LVQ500 PO; -MOML PO; -MRPSR15 PO; -MULT-116 PO; -MULT-190 PO; -MULTTAB63 PO; -NRN300 PO; -NRN600 PO; -NVLG SC; -RANI150C4 PO; -RIVA1.5T PO; -RIVA1TAB4 PO; -SALI0.6510 NAE; -SODIENE PR; -XRL10 PO
--- NOTE | 2016-12-13 15:30 | EMERGENCY ROOM VISIT NOTE ---
ED Visit Note First contact with patient: 15:10 I did evaluate and examine this patient myself. I did guide management for the patient. I agree with the PA's assessment as discussed. Please see the PAs dictation for further details. I did independently review the blood work. The patient will be hospitalized and started on IV antibiotics. Orthopedics will be consulted.
[2016-12-13] MEDS ORDERED: LEVOFLOXACIN / D5W 750 MG IV STA (15:37)
[2016-12-13] MEDS ORDERED: LINEZOLID 600MG / D5W IV STA (15:38)
--- NOTE | 2016-12-13 15:47 | EMERGENCY ROOM VISIT NOTE ---
History First contact with patient: 15:10 Chief Complaint: FOOT PAIN Stated Complaint: LEFT LEG/FOOT PAIN History of Present Illness The patient is a 71 year old female who presents to the Emergency Department for evaluation of pain to the LEFT foot. She most recently was admitted at [facility] for an ongoing diabetic foot ulcer to the affected foot. Approximately one week ago she had a CAT scan performed of the affected foot and found to have worsening infection and infection into the bone. She was referred to orthopedic surgery and saw Dr. Unger. She is now scheduled to have a below the knee amputation of the LEFT lower extremity. She was discharged from [facility] at her request yesterday and had a wound VAC removed prior to discharge. She reports that when she was ambulating into her kitchen upon returning home last evening her shoe turned on her causing her immediate pain which she describes as "excruciating". The patient reports that she sat in her lift chair all evening and only made a few trips to her bedside commode which cause worsening pain. She was seen at the wound center today and was informed that her wound had certainly worsened. She was referred back to [facility] for continued management. The patient rates her current discomfort as a 10/10. She denies any known fevers, chills, chest pain, palpitations, shortness of breath, nausea, or vomiting. The patient has a history complicated by diabetes as well as COPD. Review of Systems A complete 10-point Review of Systems was discussed with the patient, with pertinent positives and negatives listed in the History of Present Illness. All remaining Review of Systems questions can be considered negative unless otherwise specified. Past Medical/Surgical History Medical Problems: (1) Afib (2) AINSLEY (acute kidney injury) (3) Ambulatory dysfunction (4) Ambulatory dysfunction (5) Anemia (6) CHF (congestive heart failure) (7) Cholecystectomy (8) Chronic congestive heart failure (9) Chronic obstructive lung disease (10) CKD (chronic kidney disease) stage 3, GFR 30-59 ml/min (11) COPD exacerbation (12) Diabetes mellitus (13) History of anxiety (14) History of hypokalemia (15) Hypokalemia (16) Hypothyroidism (17) Obstructive sleep apnea (18) Open wound (19) Osteomyelitis of left foot (20) PNA (pneumonia) (21) Septicemia due to group B Streptococcus (22) Shortness of breath (23) Wound infection Family History Heart disease Social History Smoking Status: Former Smoker Alcohol Use: none Drug Use: none Marital Status: Housing Status: lives with family, retirement Occupation Status: disabled Current/Historical Medications Scheduled Digoxin (Digoxin), 0.125 MCG PO QAM Diltiazem Hcl Extended Release (Diltiazem Hcl), 240 MG PO QAM Emollient (Eucerin), 1 APPLN TOP BID Ferrous Gluconate (Ferrous Gluconate), 324 MG PO DAILY Fluticasone Prop/Salmeterol (Advair Diskus 250/50 60 Dose), 1 PUFF INH BID Furosemide (Lasix), 1 TAB PO DAILY Insulin Aspart (Novolog Flexpen), 0 UNITS SC ACHS Lactobacillus Acidophilus (Floranex), 2 TAB PO TIDM Levofloxacin (Levaquin), 500 MG PO DAILY Levothyroxine Sodium (Levothyroxine Sodium), 50 MCG PO DAILY Levothyroxine Sodium (Synthroid), 200 MCG PO DAILY Linezolid (Zyvox), 600 MG PO BID Magnesium Oxide (Mag-Ox), 400 MG PO BID Nitroglycerin (Nitrostat), 0.4 MG UT PRN Omeprazole (Prilosec), 20 MG PO DAILY Oxygen (Oxygen), 3 LITERS NA CONTINOUS Potassium Chloride (Klor-Con M20), 20 MEQ PO DAILY Spironolactone (Spironolactone), 25 MG PO QAM Theophylline (Theophylline Cr), 600 MG PO HS Tiotropium [place] (Spiriva Handihaler), 1 CAP INH DAILY Scheduled PRN Acetaminophen (Tylenol), 650 MG PO Q8H PRN for mild pain or fever Hydrocodone/Acetaminophen 5MG/325MG ([place] 5MG/325MG), 1 TAB PO Q6H PRN for mod Pain Polyethylene Glycol 3350 (Miralax), 17 GM PO DAILY PRN for Constipation Tramadol (Ultram), 50 MG PO Q8H PRN for Pain Allergies Coded Allergies: Duloxetine (Verified Adverse Reaction, Mild, DIZZINESS, 10/15/16) Indigotindisulfonate (Verified Adverse Reaction, Unknown, "spaced out", 10/15/16) Physical Exam Vital Signs Date Time Temp Pulse Resp B/P Pulse Ox O2 Delivery O2 Flow Rate FiO2 12/13/16 17:05 90 12/13/16 15:59 94 16 143/55 100 Nasal Cannula 3.0 12/13/16 15:59 100 Nasal Cannula 3.0 12/13/16 13:59 37.8 94 22 146/66 98 Nasal Cannula 3.0 Pain Rating (0-10): 10 Physical Exam VITAL SIGNS - Vital signs and nursing notes were reviewed. GENERAL - 71-year-old female appearing her stated age and in noticeable discomfort throughout the exam. MUSCULOSKELETAL - puncture-like ulceration noted to the midportion of the plantar surface of the LEFT foot. Significant surrounding edema as well as erythema and warmth to touch. Active bloody discharge from the wound appreciated. Circumferential cellulitis extending up the lower extremity. Decreased range of motion appreciated. NEUROLOGIC/VASCULAR - Neurovascularly intact distally with +2/5 dorsalis pedis pulses palpated bilaterally. Normal sensation to light and sharp touch appreciated distally. Medical Decision & Procedures ER Provider Diagnostic Interpretation: Radiological imaging and reports were reviewed by myself. Radiologist's Interpretation as follows: LEFT FOOT MIN 3 VIEWS ROUTINE CLINICAL HISTORY: worsening foot wound w/ new injury and worsening pain pain. Edema. COMPARISON: CT 11/29/2016 DISCUSSION: Extensive destructive changes of the distal tibia fibula talus as well as anterior calcaneus are again noted. A radiopaque density has been inserted adjacent to the pre-existing residual component of the anterior calcaneus which potentially relates to a therapeutic implant, although that history is not provided.. Mild deformity of all remaining osseous structures. Generalized osteopenia. Distraction of significant components of the tarsal region. Generalized soft tissue edema. IMPRESSION: Findings consistent with diffuse osteomyelitis primarily involving the ankle as well as components of the tarsal region. Generalized soft tissue edematous change. Possibility of mildly progressive osteomyelitis must be considered. No evidence for an acute fracture Laboratory Results 12/13/16 16:20 Red Blood Count 3.30, Mean Corpuscular Volume 87.3, Mean Corpuscular Hemoglobin 29.1, Mean Corpuscular Hemoglobin Concent 33.3, Mean Platelet Volume 8.2, Neutrophils (%) (Auto) 72.0, Lymphocytes (%) (Auto) 8.2, Monocytes (%) (Auto) 11.7, Eosinophils (%) (Auto) 7.3, Basophils (%) (Auto) 0.4, Neutrophils # (Auto ) 5.25, Lymphocytes # (Auto) 0.60, Monocytes # (Auto) 0.85, Eosinophils # (Auto ) 0.53, Basophils # (Auto) 0.03 12/13/16 16:20 Test 12/13/16 16:00 12/13/16 16:20 12/13/16 16:37 Urine Color DK YELLOW Urine Appearance CLEAR (CLEAR) Urine pH 5.5 (4.5-7.5) Urine Specific [place] 1.025 (1.000-1.030) Urine Protein TRACE (NEG) Urine Glucose (UA) NEG (NEG) Urine Ketones NEG (NEG) Urine Occult Blood NEG (NEG) Urine Nitrite NEG (NEG) Urine Bilirubin NEG (NEG) Urine Urobilinogen NEG (NEG) Urine Leukocyte Esterase NEG (NEG) Urine WBC (Auto) 1-5 /hpf (0-5) Urine RBC (Auto) 0-4 /hpf (0-4) Urine Hyaline Casts (Auto) 0 /lpf (0-5) Urine Epithelial Cells (Auto) 10-20 /lpf (0-5) Urine Bacteria (Auto) NEG (NEG) White Blood Count 7.29 K/uL (4.8-10.8) Red Blood Count 3.30 M/uL (4.2-5.4) Hemoglobin 9.6 g/dL (12.0-16.0) Hematocrit 28.8 % (37-47) Mean Corpuscular Volume 87.3 fL (80-100) Mean Corpuscular Hemoglobin 29.1 pg (25-34) Mean Corpuscular Hemoglobin Concent 33.3 g/dl (32-36) Platelet Count 127 K/uL (130-400) Mean Platelet Volume 8.2 fL (7.4-10.4) Neutrophils (%) (Auto) 72.0 % Lymphocytes (%) (Auto) 8.2 % Monocytes (%) (Auto) 11.7 % Eosinophils (%) (Auto) 7.3 % Basophils (%) (Auto) 0.4 % Neutrophils # (Auto) 5.25 K/uL (1.4-6.5) Lymphocytes # (Auto) 0.60 K/uL (1.2-3.4) Monocytes # (Auto) 0.85 K/uL (0.11-0.59) Eosinophils # (Auto) 0.53 K/uL (0-0.5) Basophils # (Auto) 0.03 K/uL (0-0.2) RDW Standard Deviation 62.5 fL (36.4-46.3) RDW Coefficient of Variation 20.3 % (11.5-14.5) Immature Granulocyte % (Auto) 0.4 % Immature Granulocyte # (Auto) 0.03 K/uL (0.00-0.02) Polychromasia 1+ Anisocytosis PRESENT Erythrocyte Sedimentation Rate 31 mm/hr (0-21) Prothrombin Time 12.0 SECONDS (9.0-12.0) Prothromb Time International Ratio 1.1 (0.9-1.1) Activated Partial Thromboplast Time 28.7 SECONDS (21.0-31.0) Partial Thromboplastin Ratio 1.1 Anion Gap 7.0 mmol/L (3-11) Estimated GFR () 58.1 Estimated GFR (Non- 50.1 BUN/Creatinine Ratio 18.7 (10-20) Calcium Level 9.4 mg/dl (8.5-10.1) Magnesium Level 2.2 mg/dl (1.8-2.4) Total Bilirubin 1.6 mg/dl (0.2-1) Aspartate Amino Transf (AST/SGOT) 9 U/L (15-37) Alanine Aminotransferase (ALT/SGPT) 8 U/L (12-78) Alkaline Phosphatase 89 U/L (45-117) C-Reactive Protein 9.76 mg/dl (0-0.29) Total Protein 7.3 gm/dl (6.4-8.2) Albumin 3.2 gm/dl (3.4-5.0) Globulin 4.1 gm/dl (2.5-4.0) Albumin/Globulin Ratio 0.8 (0.9-2) Bedside Lactic Acid Venous 1.03 mmol/L (0.90-1.70) Medications Administered Medications (Trade) Dose Ordered Sig/Hans Route Start Time Stop Time Status Last Admin Dose Admin Levofloxacin 150 ml @ 100 mls/hr NOW STAT IV 12/13/16 15:37 12/13/16 17:06 DC 12/13/16 17:32 100 MLS/HR Linezolid/Prmx (Zyvox / D5W/ Premixed D5W) 300 ml @ 200 mls/hr NOW STAT IV 12/13/16 15:38 4/7/17 17:07 DC 12/13/16 16:32 200 MLS/HR Acetaminophen (Tylenol Tab) 650 mg NOW STAT PO 12/13/16 16:36 12/13/16 16:37 DC 12/13/16 18:57 650 MG Acetaminophen/ Hydrocodone Bitart ([place] 5/325 Tab) 1 tab Q6H PRN PO 12/13/16 18:15 12/27/16 18:14 12/13/16 20:36 1 TAB Procedure Patient was placed on the private equity associate and monitored throughout the entire extent of their stay. In addition, the patient's pulse oximetry was monitored throughout the entire stay. Any abnormalities or aberrancies were addressed appropriately. ED Course Patient was seen and evaluated by myself. Previous hospitalization notes were reviewed as for outpatient wound center consultations. Labs were drawn, saline lock in place. Blood cultures were obtained. Patient was treated with IV Levaquin and IV linezolid. She received 650 oral Tylenol for fever. X-ray of the affected foot was obtained. Laboratory results demonstrate no acute leukocytosis. The patient is anemic. There are no significant electrolyte abnormalities. ESR and CRP are elevated. Urinalysis does not suggest infection. Imaging results as above. Case was discussed with my attending physician who apparently evaluated the patient and agrees with diagnostic approach treatment plan. I did discuss the case with orthopedic physician field administrative assistant for [facility] orthopedics. He is unfamiliar with the patient. Patient was admitted to the [facility] program for further evaluation and management. Patient admitted in stable condition. Medical Decision Given the patient's presentation and exam findings, I did elect to perform the above-mentioned workup. The patient presents today with worsening pain to the LEFT foot. She is a known wound to the affected foot. She stepped the foot awkwardly resulting in injury and worsening pain yesterday. She has a low- grade fever on presentation. Her wound and lower extremity are poorly appearing. She has a circumferential cellulitis with nonhealing wound to the foot. The cellulitis extending up the lower chart. X-ray suggestive of diffuse osteomyelitis. Given the patient's fever despite her outpatient antibiotics. I do feel the patient will warrant inpatient management for aggressive antibiotics and possible intervention. The patient will be admitted to the [facility] for further evaluation and management. Patient admitted in stable condition. In the evaluation and treatment of this patient, the following differential diagnoses were considered: sepsis, Cellulitis, dermatitis, fracture, dislocation , amongst others. Impression Primary Impression: Osteomyelitis of left foot Departure Information Dispostion Admitted as an inpatient Condition FAIR Referrals Oscar Etienne M.D. (PCP) Patient Instructions My [facility] Problem Qualifiers Primary Impression: Osteomyelitis of left foot Osteomyelitis type: unspecified type Qualified Codes: M86.9 - Osteomyelitis , unspecified
--- NOTE | 2016-12-13 16:02 | DIAGNOSTIC IMAGING REPORT ---
LEFT FOOT MIN 3 VIEWS ROUTINE CLINICAL HISTORY: worsening foot wound w/ new injury and worsening pain pain. Edema. COMPARISON: CT 11/29/2016 DISCUSSION: Extensive destructive changes of the distal tibia fibula talus as well as anterior calcaneus are again noted. A radiopaque density has been inserted adjacent to the pre-existing residual component of the anterior calcaneus which potentially relates to a therapeutic implant, although that history is not provided.. Mild deformity of all remaining osseous structures. Generalized osteopenia. Distraction of significant components of the tarsal region. Generalized soft tissue edema. IMPRESSION: Findings consistent with diffuse osteomyelitis primarily involving the ankle as well as components of the tarsal region. Generalized soft tissue edematous change. Possibility of mildly progressive osteomyelitis must be considered. No evidence for an acute fracture Electronically signed by: Castillo Thompson M.D. 12/13/2016 4:00 PM Dictated Date/Time: 12/13/2016 3:55 PM
[2016-12-13] MEDS ORDERED: ACETAMINOPHEN 325 MG TAB PO STA (16:36)
[2016-12-13 16:46] LABS: HEMATOCRIT 28.8 % (37-47); MEAN CELL VOLUME 87.3 fL (80-100); MEAN CORPUSCULAR HEMOGLOBIN 29.1 pg (25-34); MEAN CORPUSCULAR HGB CONC 33.3 g/dl (32-36); MEAN PLATELET VOLUME 8.2 fL (7.4-10.4); PLATELET COUNT 127 K/uL (130-400); WHITE BLOOD COUNT 7.29 K/uL (4.8-10.8)
[2016-12-13 16:55] LABS: INR 1.1 (0.9-1.1); PARTIAL THROMBOPLASTIN RATIO 1.1
[2016-12-13 17:02] LABS: BLOOD UREA NITROGEN 21 mg/dl (7-18); BUN/CREATININE RATIO 18.7 (10-20); C-REACTIVE PROTEIN 9.76 mg/dl (0-0.29); CALCIUM 9.4 mg/dl (8.5-10.1); CARBON DIOXIDE 29 mmol/L (21-32); CHLORIDE 102 mmol/L (98-107); GLUCOSE 225 mg/dl (70-99); MAGNESIUM 2.2 mg/dl (1.8-2.4); POTASSIUM 4.3 mmol/L (3.5-5.1); SODIUM 138 mmol/L (136-145)
[2016-12-13 17:04] LABS: ALB/GLOB RATIO 0.8 (0.9-2); ALKALINE PHOSPHATASE 89 U/L (45-117); ALT/SGPT 8 U/L (12-78); AST/SGOT 9 U/L (15-37)
[2016-12-13 17:28] LABS: URINE APPEARANCE CLEAR (CLEAR); URINE BILIRUBIN NEG (NEG); URINE COLOR DK YELLOW; URINE NITRITE NEG (NEG); URINE PH 5.5 (4.5-7.5); URINE SPECIFIC GRAVITY 1.025 (1.000-1.030); UROBILINOGEN NEG (NEG); ZZURINE CULT IF INDIC CATH NO
[2016-12-13 17:31] LABS: MANUAL MICROSCOPIC REQUIRED? NO; REVIEW REQ? NO
[2016-12-13 17:35] LABS: ANISOCYTOSIS PRESENT; BASO % 0.4 %; BASO ABS # 0.03 K/uL (0-0.2); COMPLETE YES; EOS % 7.3 %; IG% 0.4 %; LYMPH % 8.2 %; MONO % 11.7 %; POLYCHROMASIA 1+
[2016-12-13] MEDS ORDERED: POLYETHYLENE (MIRALAX) 17 GM PACK PO PRN (18:15)
[2016-12-13] MEDS ORDERED: MoRPHine SULFATE 2 MG/ML CARP IV PRN ×3 (18:15→19:00)
[2016-12-13] MEDS ORDERED: ONDANSETRON INJ 2 MG/ML 2 ML VIAL IV PRN (18:15)
[2016-12-13] MEDS ORDERED: NON-FORMULARY MEDICATION (Polyethylene Glycol 3350 (Miralax) 17 GM) PO PRN (18:15)
[2016-12-13] MEDS ORDERED: ALUMINUM/MAGNESIUM/SIMETH (MAALOX MAX) 30 ML UDC PO PRN (18:15)
[2016-12-13] MEDS ORDERED: MAGNESIUM HYDROXIDE SUSP 30 ML UDC PO PRN (18:15)
[2016-12-13] MEDS ORDERED: NITROGLYCERIN 0.4 MG SL PER TAB CHARGE SL PRN (18:15)
--- NOTE | 2016-12-13 18:34 | History and Physical ---
History & Physical Date & Time of Service: Dec 13, 2016 at 18:15 Chief Complaint: Left Leg/Foot Pain Primary Care Physician: Oscar Etienne M.D. History of Present Illness Source: patient, clinic records, hospital records Patient is a pleasant 71 y/o female, with PMHx of chronic lower extremity wound , T2DM, CAD, HTN, diastolic HF, a.fib, hypothyroidism, COPD, and GERD, who presented to the ED because of worsening LLE wound. Patient has frequent admission due to lower extremity wounds. Her last admission on 10/15/16, patient was discharged to [facility]. On 12/12, patient left [facility]. Antibiotics discontinued and wound vac removed. Patient states she left because she felt there was no need to continue treatment because of upcoming amputation. Last evening, her shoe twisted causing her extreme pain to the left lower extremity. She was seen by Dr. Wells today (12/13), and instructed to return to [facility]. Patient is scheduled for left below the knee amputation at the beginning of January by Dr. Unger. According to Dr. Wells's note today, he was going to contact Dr. Unger to see if procedure can be scheduled for an earlier date. Currently, patient admits to severe pain of left lower extremity. Patient denies any fever, chills, sweats, lightheadedness, dizziness, vision changes, CP , palpitations, edema, SOB, wheezing, cough, abdominal pain, nausea, vomiting, diarrhea, urinary symptoms, melena, numbness/tingling, weakness, muscle/joint pain, anxiety/depression, active bleeding. Past Medical/Surgical History Medical Problems: chronic lower extremity wound T2DM CAD HTN diastolic HF a.fib hypothyroidism COPD GERD Family History Heart disease Social History Smoking Status: Former Smoker Drug Use: none Marital Status: Housing status: lives alone Occupational Status: disabled Immunizations History of Influenza Vaccine: Unknown Influenza Vaccine Date: Jun 23, 2013 History of Tetanus Vaccine?: Unknown History of Pneumococcal: Unknown Pneumococcal Date: Jun 23, 2011 History of Hepatitis B Vaccine: Unknown Multi-Drug Resistant Organisms History of MDRO: No Type of MDRO: MRSA Allergies Coded Allergies: Duloxetine (Verified Adverse Reaction, Mild, DIZZINESS, 10/15/16) Indigotindisulfonate (Verified Adverse Reaction, Unknown, "spaced out", 10/15/16) Home Medications Scheduled Digoxin (Digoxin), 0.125 MCG PO QAM Diltiazem Hcl Extended Release (Diltiazem Hcl), 240 MG PO QAM Emollient (Eucerin), 1 APPLN TOP BID Ferrous Gluconate (Ferrous Gluconate), 324 MG PO DAILY Fluticasone Prop/Salmeterol (Advair Diskus 250/50 60 Dose), 1 PUFF INH BID Furosemide (Lasix), 1 TAB PO DAILY Insulin Aspart (Novolog Flexpen), 0 UNITS SC ACHS Lactobacillus Acidophilus (Floranex), 2 TAB PO TIDM Levofloxacin (Levaquin), 500 MG PO DAILY Levothyroxine Sodium (Levothyroxine Sodium), 50 MCG PO DAILY Levothyroxine Sodium (Synthroid), 200 MCG PO DAILY Linezolid (Zyvox), 600 MG PO BID Magnesium Oxide (Mag-Ox), 400 MG PO BID Nitroglycerin (Nitrostat), 0.4 MG UT PRN Omeprazole (Prilosec), 20 MG PO DAILY Oxygen (Oxygen), 3 LITERS NA CONTINOUS Potassium Chloride (Klor-Con M20), 20 MEQ PO DAILY Spironolactone (Spironolactone), 25 MG PO QAM Theophylline (Theophylline Cr), 600 MG PO HS Tiotropium [place] (Spiriva Handihaler), 1 CAP INH DAILY Scheduled PRN Acetaminophen (Tylenol), 650 MG PO Q8H PRN for mild pain or fever Hydrocodone/Acetaminophen 5MG/325MG (Johnson 5MG/325MG), 1 TAB PO Q6H PRN for mod Pain Polyethylene Glycol 3350 (Miralax), 17 GM PO DAILY PRN for Constipation Tramadol (Ultram), 50 MG PO Q8H PRN for Pain Physical Exam Vital Signs Date Time Temp Pulse Resp B/P Pulse Ox O2 Delivery O2 Flow Rate FiO2 12/13/16 17:05 90 12/13/16 15:59 94 16 143/55 100 Nasal Cannula 3.0 12/13/16 15:59 100 Nasal Cannula 3.0 12/13/16 13:59 37.8 94 22 146/66 98 Nasal Cannula 3.0 General Appearance: no apparent distress, + obese Head: normocephalic, atraumatic Eyes: normal inspection, PERRL ENT: hearing grossly normal Neck: supple Respiratory/Chest: lungs clear, no respiratory distress, no accessory muscle use Cardiovascular: regular rate, rhythm, + systolic murmur Abdomen/GI: normal bowel sounds, non tender, soft Extremities/Musculoskelatal: no calf tenderness, + swelling, + pertinent finding (Chronic venous stasis and anatomical alteration to feet; LLE extremity wound located on medical foot with obvious bleeding ) Neurologic/Psych: alert, normal mood/affect, oriented x 3 Skin: normal color, warm/dry, no rash Diagnostics Laboratory Results Results Past 24 Hours Test 12/13/16 16:00 12/13/16 16:20 12/13/16 16:37 Range/Units Urine Color DK YELLOW Urine Appearance CLEAR CLEAR Urine pH 5.5 4.5-7.5 Urine Specific Dwight 1.025 1.000-1.030 Urine Protein TRACE NEG Urine Glucose (UA) NEG NEG Urine Ketones NEG NEG Urine Occult Blood NEG NEG Urine Nitrite NEG NEG Urine Bilirubin NEG NEG Urine Urobilinogen NEG NEG Urine Leukocyte Esterase NEG NEG Urine WBC (Auto) 1-5 0-5 /hpf Urine RBC (Auto) 0-4 0-4 /hpf Urine Hyaline Casts (Auto) 0 0-5 /lpf Urine Epithelial Cells (Auto) 10-20 0-5 /lpf Urine Bacteria (Auto) NEG NEG White Blood Count 7.29 4.8-10.8 K/uL Red Blood Count 3.30 4.2-5.4 M/uL Hemoglobin 9.6 12.0-16.0 g/dL Hematocrit 28.8 37-47 % Mean Corpuscular Volume 87.3 80-100 fL Mean Corpuscular Hemoglobin 29.1 25-34 pg Mean Corpuscular Hemoglobin Concent 33.3 32-36 g/dl Platelet Count 127 130-400 K/uL Mean Platelet Volume 8.2 7.4-10.4 fL Neutrophils (%) (Auto) 72.0 % Lymphocytes (%) (Auto) 8.2 % Monocytes (%) (Auto) 11.7 % Eosinophils (%) (Auto) 7.3 % Basophils (%) (Auto) 0.4 % Neutrophils # (Auto) 5.25 1.4-6.5 K/uL Lymphocytes # (Auto) 0.60 1.2-3.4 K/uL Monocytes # (Auto) 0.85 0.11-0.59 K/uL Eosinophils # (Auto) 0.53 0-0.5 K/uL Basophils # (Auto) 0.03 0-0.2 K/uL RDW Standard Deviation 62.5 36.4-46.3 fL RDW Coefficient of Variation 20.3 11.5-14.5 % Immature Granulocyte % (Auto) 0.4 % Immature Granulocyte # (Auto) 0.03 0.00-0.02 K/uL Polychromasia 1+ Anisocytosis PRESENT Erythrocyte Sedimentation Rate 31 0-21 mm/hr Prothrombin Time 12.0 9.0-12.0 SECONDS Prothromb Time International Ratio 1.1 0.9-1.1 Activated Partial Thromboplast Time 28.7 21.0-31.0 SECONDS Partial Thromboplastin Ratio 1.1 Sodium Level 138 136-145 mmol/L Potassium Level 4.3 3.5-5.1 mmol/L Chloride Level 102 98-107 mmol/L Carbon Dioxide Level 29 21-32 mmol/L Anion Gap 7.0 3-11 mmol/L Blood Urea Nitrogen 21 7-18 mg/dl Creatinine 1.10 0.60-1.20 mg/dl Estimated GFR () 58.1 Estimated GFR (Non- 50.1 BUN/Creatinine Ratio 18.7 10-20 Random Glucose 225 70-99 mg/dl Calcium Level 9.4 8.5-10.1 mg/dl Magnesium Level 2.2 1.8-2.4 mg/dl Total Bilirubin 1.6 0.2-1 mg/dl Aspartate Amino Transf (AST/SGOT) 9 15-37 U/L Alanine Aminotransferase (ALT/SGPT) 8 12-78 U/L Alkaline Phosphatase 89 45-117 U/L C-Reactive Protein 9.76 0-0.29 mg/dl Total Protein 7.3 6.4-8.2 gm/dl Albumin 3.2 3.4-5.0 gm/dl Globulin 4.1 2.5-4.0 gm/dl Albumin/Globulin Ratio 0.8 0.9-2 Bedside Lactic Acid Venous 1.03 0.90-1.70 mmol/L Microbiology Results 12/13/16 Blood Culture, Received Pending 12/13/16 Blood Culture, Received Pending Diagnostic Radiology LEFT FOOT MIN 3 VIEWS ROUTINE CLINICAL HISTORY: worsening foot wound w/ new injury and worsening pain pain. Edema. COMPARISON: CT 11/29/2016 DISCUSSION: Extensive destructive changes of the distal tibia fibula talus as well as anterior calcaneus are again noted. A radiopaque density has been inserted adjacent to the pre-existing residual component of the anterior calcaneus which potentially relates to a therapeutic implant, although that history is not provided.. Mild deformity of all remaining osseous structures. Generalized osteopenia. Distraction of significant components of the tarsal region. Generalized soft tissue edema. IMPRESSION: Findings consistent with diffuse osteomyelitis primarily involving the ankle as well as components of the tarsal region. Generalized soft tissue edematous change. Possibility of mildly progressive osteomyelitis must be considered. No evidence for an acute fracture Electronically signed by: Castillo Thompson M.D. 12/13/2016 4:00 PM Dictated Date/Time: 12/13/2016 3:55 PM The status of this report is Signed. Draft = Not yet reviewed or approved by Radiologist. Signed = Reviewed and approved by Radiologist. Impression Assessment and Plan 71 y/o female, with PMHx of chronic lower extremity wound, T2DM, CAD, HTN, diastolic HF, a.fib, hypothyroidism, COPD, and GERD, who presented to the ED because of worsening LLE wound. LLE osteomyelitis: - Admit med/surg - IV Linezolid + Levaquin--> may consider ID consult - IV NSS @ 80 ml/hr x1 bag - Pain management with IV Morphine - O2 protocol--> wears 2L at all times - Consult wound care, appreciate recommendations T2DM: - BSG ACHS with sliding insulin scale coverage - Will likely need Lantus coverage, on last admission she required Lantus 20 u BID Coronary artery disease, hypertension, diastolic congestive heart failure with ejection fraction 55% on echocardiogram in February 2016, anasarca: - Continue with Digoxin 125 mcg by mouth daily - Continue Cardizem-CD 240 mg daily in the morning - Continue Mag oxide 400 mg twice a day - Nitroglycerin sublingually when necessary - Continue Lasix 20 mg daily - Potassium extended release 40 mEq by mouth Atrial fibrillation: Continue Diltiazem and Digoxin Hypothyroidism: Continue Levothyroxine 250 mcg by mouth daily COPD: Continue Advair 250/50 inhalation twice a day, Spiriva and Theophylline 600 mg by mouth at bedtime Chronic anemia- stable: Continue Iron supplement GERD: Change omeprazole to Pantoprazole 40 mg by mouth daily GI Prophylaxis: Maalox PRN, IV Zofran PRN, Colace and/or Milk of Mag PRN DVT prophylaxis: Hold on chemical therapy at this time due to open wound w/ obvious bleeding/chronic anemia Code Status: LEVEL V, DNR Dispo: From home, signed out from [facility] on 12/12- will likely need placement again- social work specialist consulted, PT/OT PA Physician Supervision Note: I interviewed and examined the patient. Discussed with Dee MONTERROSO and agree with findings and plan as documented in the note. Any exceptions or clarifications are listed here: None diabetic female with smoldering left diabetic foot infection and osteomyelitis on top of chronic venous stasis will restart antibiotics suggested in past by ID pt is not happy about being here, but understands reddened foot, open draining area on dorsum of left foot with ascending redness and warmth Linezoid and levaquin consider picc, consider ID, may need snf for care until surgical decision for possible revision of ulcer or more aggressive surgery Documented By: Tirso Carrera Level of Care Med/Surg Resuscitation Status DO NOT RESUSCITATE VTE Prophylaxis VTE Risk Assessment Done? Y/N: Yes Risk Level: Moderate Given or contraindicated: Warfarin (Coumadin), T.E.D. Stockings, SCD's
[2016-12-13] MEDS ORDERED: MoRPHine SULFATE 2 MG/ML CARP ONE (18:58)
[2016-12-13 19:45] VITALS: BP 130/63; PULSE 94; TEMP 37.6; O2SAT 97
[2016-12-13] MEDS ORDERED: SODIUM CHLORIDE 0.9% 1000ML 1,000 ML IV ONE (20:30)
[2016-12-13] MEDS ORDERED: LEVOFLOXACIN CONSULT ACTIVE PRN (20:30)
[2016-12-13] MEDS: HYDROCODONE/ACETAMOPHEN 5/325MG TAB PO PRN (20:36)
[2016-12-13 20:47] VITALS: BP 130/63; PULSE 94; TEMP 37.6; O2SAT 97; Ht 160 cm; Wt 91.7 kg
[2016-12-13] MEDS ORDERED: HEPARIN SOD 5000 UNIT/0.5 ML CARP SQ SCH (21:00)
[2016-12-13] MEDS: MAGNESIUM OXIDE 400 MG TAB PO SCH (21:44)
[2016-12-13] MEDS: THEOPHYLLINE 300MG EXTENDED REL TAB PO SCH (21:45)
[2016-12-13] MEDS: FLUTICASONE/SALMETEROL 250/50 (ADVAIR) 14 PUFF/1 INHALER INH SCH (21:45)
[2016-12-13] MEDS: EUCERIN CR 120 GM JAR EXT SCH (21:46)
[2016-12-13] MEDS: INSULIN ASPART 100 UNITS/ML 3 ML PEN SC SCH (21:53)
[2016-12-13] MEDS: MoRPHine SULFATE 4 MG/ML 1 ML CARP\\VIAL IV PRN (23:49)
[2016-12-14 00:06] VITALS: BP 125/62; PULSE 82; TEMP 37.1; O2SAT 100
[2016-12-14] MEDS: HYDROCODONE/ACETAMOPHEN 5/325MG TAB PO PRN ×3 (03:05→20:02)
[2016-12-14] MEDS: LEVOTHYROXINE SODIUM PO SCH ×2 (05:26)
[2016-12-14] MEDS: MoRPHine SULFATE 4 MG/ML 1 ML CARP\\VIAL IV PRN ×4 (05:26→21:09)
[2016-12-14] MEDS: LINEZOLID / D5W 600 MG in PREMIXED IN D5W 300 ML IV SCH ×2 (05:26→18:08)
[2016-12-14 05:50] LABS: HEMATOCRIT 23.7 % (37-47); MEAN CELL VOLUME 87.8 fL (80-100); MEAN CORPUSCULAR HEMOGLOBIN 29.3 pg (25-34); MEAN CORPUSCULAR HGB CONC 33.3 g/dl (32-36); PLATELET COUNT 101 K/uL (130-400); WHITE BLOOD COUNT 5.89 K/uL (4.8-10.8)
[2016-12-14 06:27] LABS: BUN/CREATININE RATIO 18.5 (10-20); CALCIUM 8.6 mg/dl (8.5-10.1); CREATININE 1.1 mg/dl (0.60-1.20); MAGNESIUM 2.3 mg/dl (1.8-2.4); POTASSIUM 3.7 mmol/L (3.5-5.1)
[2016-12-14 07:07] VITALS: BP 143/71; PULSE 83; TEMP 36.8; O2SAT 100
[2016-12-14] MEDS: TIOTROPIUM BROMIDE 5 PUFF/90 MCG INH INH SCH (08:30)
[2016-12-14] MEDS: MAGNESIUM OXIDE 400 MG TAB PO SCH ×2 (08:30→21:07)
[2016-12-14] MEDS: FLUTICASONE/SALMETEROL 250/50 (ADVAIR) 14 PUFF/1 INHALER INH SCH ×2 (08:30→21:07)
[2016-12-14] MEDS: FERROUS GLUCONATE 324 MG TAB PO SCH (08:30)
[2016-12-14] MEDS: PANTOprazole SOD 40 MG TAB PO SCH (08:30)
[2016-12-14] MEDS: SPIRONOLACTONE 25 MG TAB PO SCH (08:30)
[2016-12-14] MEDS: POTASSIUM CHLORIDE 20 MEQ TABCR PO SCH (08:31)
[2016-12-14] MEDS: LACTOBACILLUS ACIDOPHILUS (FLORANEX) TAB PO SCH ×3 (08:31→18:09)
[2016-12-14] MEDS: DILTIAZEM HCL 240 MG CAPCR PO SCH (08:31)
[2016-12-14] MEDS: FUROSEMIDE 20 MG TAB PO SCH (08:31)
[2016-12-14] MEDS: DIGOXIN 0.125 MG TAB PO SCH (08:32)
[2016-12-14] MEDS: EUCERIN CR 120 GM JAR EXT SCH ×2 (08:33→21:07)
[2016-12-14] MEDS ORDERED: NON-FORMULARY MEDICATION (Omeprazole (Prilosec) 20 MG) PO SCH (09:00)
[2016-12-14] MEDS ORDERED: LEVOTHYROXINE 50 MCG TAB PO SCH (09:00)
[2016-12-14] MEDS ORDERED: LEVOTHYROXINE 200 MCG TAB PO SCH (09:00)
[2016-12-14] MEDS: INSULIN ASPART 100 UNITS/ML 3 ML PEN SC SCH ×4 (10:02→21:03)
[2016-12-14 15:29] VITALS: BP 122/62; PULSE 73; TEMP 37; O2SAT 96
[2016-12-14] MEDS: LEVOFLOXACIN / D5W 750 MG in PREMIXED IN D5W 150 ML IV SCH (18:08)
--- NOTE | 2016-12-14 18:24 | Progress Note ---
Subjective Date of Service: Dec 14, 2016. Subjective Pt evaluation today including: conversation w/ patient, physical exam, chart review, lab review, review of inpatient medication list reviewed [facility] charts as well discharged from there on 12/12 - unclear in documentation but seems that pt/ family wanted discharge more than appearing that medical team was truly ready to discharge her - but she expressed frustration wtih [facility] as soon as i entered the room. had seen dr harrington - who felt that she'll likely need BKA - and she then felt that she no longer needed wound vac or abx since amputation pending. appears that amputation originally planned for may no other acute complaints. Problem List Medical Problems: (1) Atrial fibrillation Status: Acute (2) Bifascicular block Status: Acute (3) Cellulitis of both lower extremities Status: Acute (4) Cellulitis of foot, left Status: Acute (5) Cellulitis of left lower leg Status: Acute (6) CHF (congestive heart failure) Status: Acute (7) Constipation Status: Acute (8) Diabetic foot ulcer Status: Acute (9) Electrolyte abnormality Status: Acute (10) Hypokalemia Status: Acute (11) Leukocytosis Status: Acute (12) Sepsis Status: Acute (13) UTI (urinary tract infection) Status: Acute Review of Systems ros otherwise negative except for as above does note that she was appreciative of my care, in spite of her dissatisfaction with her overall [facility] experience Objective Vital Signs Date Time Temp Pulse Resp B/P Pulse Ox O2 Delivery O2 Flow Rate FiO2 12/14/16 15:29 37.0 73 17 122/62 96 Nasal Cannula 3.0 12/14/16 08:32 88 12/14/16 07:15 Nasal Cannula 3.0 12/14/16 07:07 36.8 83 20 143/71 100 3.0 12/14/16 00:06 37.1 82 20 125/62 100 3.0 12/13/16 23:45 Nasal Cannula 3.0 12/13/16 20:47 37.6 94 16 130/63 97 Nasal Cannula 3.0 12/13/16 19:45 37.6 94 16 130/63 97 Nasal Cannula 3.0 12/13/16 19:41 79 16 135/57 100 12/13/16 18:45 37.4 91 20 135/57 100 Room Air 3.0 Nasal Cannula Physical Exam General Appearance: no apparent distress Eyes: EOMI ENT: hearing grossly normal Neck: trachea midline Respiratory/Chest: no respiratory distress, no accessory muscle use Extremities: + pertinent finding (LLE diffuse now dull erythema from ~3cm distal to knee distal. 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 nml as tested, alert, normal mood/affect Skin: normal color, warm/dry Laboratory Results Last 24 Hours Test 12/13/16 20:27 12/14/16 05:08 12/14/16 08:13 12/14/16 12:11 Bedside Glucose 199 mg/dl 190 mg/dl 251 mg/dl White Blood Count 5.89 K/uL Red Blood Count 2.70 M/uL Hemoglobin 7.9 g/dL Hematocrit 23.7 % Mean Corpuscular Volume 87.8 fL Mean Corpuscular Hemoglobin 29.3 pg Mean Corpuscular Hemoglobin Concent 33.3 g/dl RDW Standard Deviation 64.6 fL RDW Coefficient of Variation 20.4 % Platelet Count 101 K/uL Mean Platelet Volume 8.0 fL Sodium Level 140 mmol/L Potassium Level 3.7 mmol/L Chloride Level 103 mmol/L Carbon Dioxide Level 32 mmol/L Anion Gap 5.0 mmol/L Blood Urea Nitrogen 20 mg/dl Creatinine 1.10 mg/dl Est Creatinine Clear Calc Drug Dose 51.9 ml/min Estimated GFR () 58.1 Estimated GFR (Non- 50.1 BUN/Creatinine Ratio 18.5 Random Glucose 143 mg/dl Calcium Level 8.6 mg/dl Magnesium Level 2.3 mg/dl Test 12/14/16 17:12 Bedside Glucose 223 mg/dl Assessment and Plan 71 y/o female, with PMHx of chronic lower extremity wound, T2DM, CAD, HTN, diastolic HF, a.fib, hypothyroidism, COPD, and GERD, who presented to the ED because of worsening LLE wound. LLE osteomyelitis: - IV Linezolid + Levaquin--> may consider ID consult - Pain management with IV Morphine - pain seems under control - ongoing local wound care - IV abx for a few days for better / less surgical risk - will then ask ortho to see for probable amputation sooner - she's now failed several attempts at wound vac and antibiotics - the most recent at [facility] under constant medical supervision - so agree that it's unlikely that the wounds are going to heal; further she showed a fairly abrupt and severe decompensation wtih current cellulitis. T2DM: - sugars slightly higher than goal - tighten correction factor, keep carb ratio the same - add 10 lantus HS and then continue to titrate anemia - has required transfusion in the past - no clear blood loss today although foot has been known to be culprit, and Hgb 7.9 - continue to follow transfuse if continues to trend down - especially w likely amputation this hospitalization Coronary artery disease, hypertension, diastolic congestive heart failure with ejection fraction 55% on echocardiogram in February 2016, anasarca: - control overall appearing reasonable at this point - Continue with Digoxin 125 mcg by mouth daily - Continue Cardizem-CD 240 mg daily in the morning - Continue Mag oxide 400 mg twice a day - Nitroglycerin sublingually when necessary - Continue Lasix 20 mg daily - Potassium extended release 40 mEq by mouth Atrial fibrillation: Continue Diltiazem and Digoxin Hypothyroidism: Continue Levothyroxine 250 mcg by mouth daily COPD: Continue Advair 250/50 inhalation twice a day, Spiriva and Theophylline 600 mg by mouth at bedtime Chronic anemia- stable: Continue Iron supplement GERD: Change omeprazole to Pantoprazole 40 mg by mouth daily GI Prophylaxis: Maalox PRN, IV Zofran PRN, Colace and/or Milk of Mag PRN DVT prophylaxis: Hold on chemical therapy at this time due to open wound w/ obvious bleeding/chronic anemia -- especially w drop in Hgb Code Status: LEVEL V, DNR Dispo: From home, signed out from [facility] on 12/12- will likely need placement again- social services counselor consulted, PT/OT
[2016-12-14] MEDS ORDERED: DEXTROSE 50% 50 ML SYR IV PRN (19:00)
[2016-12-14] MEDS ORDERED: GLUCOSE 40% GEL 15 GM TUBE PO PRN (19:00)
[2016-12-14] MEDS ORDERED: GLUCOSE 10 TABS/TUBE PO PRN (19:00)
[2016-12-14] MEDS ORDERED: GLUCAGON FOR INJ 1 MG VIAL SQ PRN (19:00)
[2016-12-14] MEDS: INSULIN GLARGINE SOLOSTAR 100 UNITS/ML 3 ML PEN SC SCH (21:04)
[2016-12-14] MEDS: THEOPHYLLINE 300MG EXTENDED REL TAB PO SCH (21:08)
[2016-12-14 23:03] VITALS: BP 130/67; PULSE 73; TEMP 36.9; O2SAT 96
[2016-12-15] MEDS: MoRPHine SULFATE 4 MG/ML 1 ML CARP\\VIAL IV PRN ×5 (01:35→21:58)
[2016-12-15] MEDS: HYDROCODONE/ACETAMOPHEN 5/325MG TAB PO PRN ×3 (03:28→16:46)
[2016-12-15] MEDS: LEVOTHYROXINE SODIUM PO SCH ×2 (05:48)
[2016-12-15] MEDS: LINEZOLID / D5W 600 MG in PREMIXED IN D5W 300 ML IV SCH ×2 (05:48→16:47)
[2016-12-15 07:11] VITALS: BP 136/62; PULSE 79; TEMP 36.6; O2SAT 99
[2016-12-15 08:21] LABS: HEMATOCRIT 22.4 % (37-47); MEAN CELL VOLUME 87.5 fL (80-100); MEAN CORPUSCULAR HEMOGLOBIN 29.3 pg (25-34); MEAN CORPUSCULAR HGB CONC 33.5 g/dl (32-36); RED BLOOD COUNT 2.56 M/uL (4.2-5.4); WHITE BLOOD COUNT 4.92 K/uL (4.8-10.8)
[2016-12-15 08:52] LABS: MEAN PLATELET VOLUME 8.6 fL (7.4-10.4); PLATELET COUNT 99 K/uL (130-400); PLT ESTIMATE DECREASED
[2016-12-15 08:53] LABS: BUN/CREATININE RATIO 17.4 (10-20); CALCIUM 8.4 mg/dl (8.5-10.1); CREATININE 1.2 mg/dl (0.60-1.20)
[2016-12-15] MEDS: DIGOXIN 0.125 MG TAB PO SCH (09:22)
[2016-12-15] MEDS: FERROUS GLUCONATE 324 MG TAB PO SCH (09:22)
[2016-12-15] MEDS: POTASSIUM CHLORIDE 20 MEQ TABCR PO SCH (09:23)
[2016-12-15] MEDS: PANTOprazole SOD 40 MG TAB PO SCH (09:23)
[2016-12-15] MEDS: FUROSEMIDE 20 MG TAB PO SCH (09:23)
[2016-12-15] MEDS: MAGNESIUM OXIDE 400 MG TAB PO SCH ×2 (09:23→21:57)
[2016-12-15] MEDS: TIOTROPIUM BROMIDE 5 PUFF/90 MCG INH INH SCH (09:24)
[2016-12-15] MEDS: FLUTICASONE/SALMETEROL 250/50 (ADVAIR) 14 PUFF/1 INHALER INH SCH ×2 (09:24→21:42)
[2016-12-15] MEDS: LACTOBACILLUS ACIDOPHILUS (FLORANEX) TAB PO SCH ×3 (09:25→17:53)
[2016-12-15] MEDS: DILTIAZEM HCL 240 MG CAPCR PO SCH (09:25)
[2016-12-15] MEDS: SPIRONOLACTONE 25 MG TAB PO SCH (09:25)
[2016-12-15] MEDS: EUCERIN CR 120 GM JAR EXT SCH ×2 (09:25→21:00)
[2016-12-15] MEDS: INSULIN ASPART 100 UNITS/ML 3 ML PEN SC SCH ×4 (10:36→21:47)
[2016-12-15] MEDS ORDERED: SODIUM CHLORIDE 0.65% NA SOLN 45 ML (OCEAN) ONE (12:12)
[2016-12-15] MEDS ORDERED: NURSING DECISION MEDICATION ORDER SCH (12:30)
[2016-12-15] MEDS ORDERED: SODIUM CHLORIDE 0.65% NA SOLN 45 ML (OCEAN) PRN (12:45)
[2016-12-15 15:37] VITALS: BP 133/61; PULSE 71; TEMP 37.1; O2SAT 100
--- NOTE | 2016-12-15 17:06 | Progress Note ---
Subjective Date of Service: Dec 15, 2016. Subjective Pt evaluation today including: conversation w/ patient, physical exam, chart review, lab review, review of inpatient medication list feeling about the same, worried about getting out of bed because she thought once she was out of bed she'd have to stay out of bed all day and use the bathroom every time instead of ever being able to use the bed alba and was worried about having her leg down all day. once we discussed that the goal is more movement, DVT prevention, decubiti prevention, and that even a short time out of bed but at least QID would be reasonable for above noted goals,s he was much more amenable leg pain ongoing - morphine helps for a short while then worse again. ongoing pain accepting that she'll likely have bka this admission - will consult ortho for eval but since BKA was planned as outpt for january and she's now worsened, she's anticipating this as the course. ongoing bleeding from foot wound off and on - seems to "gush" then stop Problem List Medical Problems: (1) Atrial fibrillation Status: Acute (2) Bifascicular block Status: Acute (3) Cellulitis of both lower extremities Status: Acute (4) Cellulitis of foot, left Status: Acute (5) Cellulitis of left lower leg Status: Acute (6) CHF (congestive heart failure) Status: Acute (7) Constipation Status: Acute (8) Diabetic foot ulcer Status: Acute (9) Electrolyte abnormality Status: Acute (10) Hypokalemia Status: Acute (11) Leukocytosis Status: Acute (12) Sepsis Status: Acute (13) UTI (urinary tract infection) Status: Acute Review of Systems ros otherwise negative except for as above Objective Vital Signs Date Time Temp Pulse Resp B/P Pulse Ox O2 Delivery O2 Flow Rate FiO2 12/15/16 15:37 37.1 71 17 133/61 100 Nasal Cannula 3.0 12/15/16 09:22 84 12/15/16 08:00 Nasal Cannula 3.0 12/15/16 07:11 36.6 79 18 136/62 99 Nasal Cannula 3.0 12/14/16 23:40 Nasal Cannula 3.0 12/14/16 23:03 36.9 73 17 130/67 96 Nasal Cannula 3.0 Physical Exam General Appearance: no apparent distress (fatigued but pleasant nad) Eyes: EOMI ENT: hearing grossly normal Neck: trachea midline Respiratory/Chest: no respiratory distress, no accessory muscle use Extremities: + pertinent finding (ongiong LLE edema and dull but tender erythema - almost identical to yesterday) Neurologic/Psychiatric: 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 masking 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 [id number] nml as tested, alert, normal mood/affect ( baseline for her - pleasantly anxious, perseverates on times she feels someone has done her wrong) Skin: + pertinent finding (see above) Laboratory Results Last 24 Hours Test 12/14/16 17:12 12/14/16 20:34 12/15/16 06:55 12/15/16 07:23 Bedside Glucose 223 mg/dl 233 mg/dl 270 mg/dl White Blood Count 4.92 K/uL Red Blood Count 2.56 M/uL Hemoglobin 7.5 g/dL Hematocrit 22.4 % Mean Corpuscular Volume 87.5 fL Mean Corpuscular Hemoglobin 29.3 pg Mean Corpuscular Hemoglobin Concent 33.5 g/dl RDW Standard Deviation 64.2 fL RDW Coefficient of Variation 20.5 % Platelet Count 99 K/uL Mean Platelet Volume 8.6 fL Platelet Estimate DECREASED Sodium Level 138 mmol/L Potassium Level 4.0 mmol/L Chloride Level 100 mmol/L Carbon Dioxide Level 29 mmol/L Anion Gap 9.0 mmol/L Blood Urea Nitrogen 21 mg/dl Creatinine 1.20 mg/dl Est Creatinine Clear Calc Drug Dose 47.6 ml/min Estimated GFR () 52.3 Estimated GFR (Non- 45.1 BUN/Creatinine Ratio 17.4 Random Glucose 229 mg/dl Calcium Level 8.4 mg/dl Test 12/15/16 11:58 Bedside Glucose 279 mg/dl Assessment and Plan 71 y/o female, with PMHx of chronic lower extremity wound, T2DM, CAD, HTN, diastolic HF, a.fib, hypothyroidism, COPD, and GERD, who presented to the ED because of worsening LLE wound. LLE osteomyelitis: - IV Linezolid + Levaquin--> may consider ID consult but since likely BKA and infection at least stable, continue current regimen for now - Pain management with IV Morphine - pain reasonable but "off and on" control - - tighten morphine to q3 prn, add gabapentin HS (especially since pain has been going on for so long) titrate as possible - ongoing local wound care - IV abx ongoing - but also will consult ortho for eval, anticipate need for BKA - since abx/wound care/wound vac has been tried several times and failed each time -- including most recent trial in SNF setting where compliance could be controlled for T2DM: - sugars still higher than goal - continue correction factor, tighten carb ratio - increase latnus to 10 SQ BID and then continue to titrate anemia - has required transfusion in the past - does have ongoing erratic and intermittent blood loss from foot. hemodynamically stable and no need for transfusion at this time but given the likely impending surgery, i expect she' ll likely end up w transfusion during this stay. type/screen. Coronary artery disease, hypertension, diastolic congestive heart failure with ejection fraction 55% on echocardiogram in February 2016, anasarca: - control overall appearing reasonable at this point - Continue with Digoxin 125 mcg by mouth daily - Continue Cardizem-CD 240 mg daily in the morning - Continue Mag oxide 400 mg twice a day - Nitroglycerin sublingually when necessary - Continue Lasix 20 mg daily - Potassium extended release 40 mEq by mouth Atrial fibrillation: Continue Diltiazem and Digoxin; appearing stable. Hypothyroidism: Continue Levothyroxine 250 mcg by mouth daily COPD: Continue Advair 250/50 inhalation twice a day, Spiriva and Theophylline 600 mg by mouth at bedtime; appearing stable Chronic anemia- stable: Continue Iron supplement GERD: Change omeprazole to Pantoprazole 40 mg by mouth daily GI Prophylaxis: Maalox PRN, IV Zofran PRN, Colace and/or Milk of Mag PRN DVT prophylaxis: Hold on chemical therapy at this time due to open wound w/ obvious bleeding/chronic anemia -- especially w drop in Hgb. mechanical prophylaxis of dubious benefit and real risk of possible harm (skin breakdown, falls) and would be too painful on infection affected side. OOB QID minimum, vigilance and low threshold to check dopplers if suspicious findings arise Code Status: LEVEL V, DNR Dispo: From home, signed out from [facility] on 12/12 (doesn't appear to have been "full AMA" but certainly appears that they were not truly consenting to her desire to leave as much as not able to stop her from leaving) - will likely need placement again- rn social work consulted, PT/OT
[2016-12-15] MEDS: LEVOFLOXACIN / D5W 750 MG in PREMIXED IN D5W 150 ML IV SCH (17:53)
[2016-12-15] MEDS: INSULIN GLARGINE SOLOSTAR 100 UNITS/ML 3 ML PEN SC SCH ×2 (21:00→21:48)
[2016-12-15] MEDS: THEOPHYLLINE 300MG EXTENDED REL TAB PO SCH (21:58)
[2016-12-15] MEDS: GABAPENTIN 300 MG CAP PO SCH (22:09)
[2016-12-15 23:16] VITALS: BP 137/61; PULSE 82; TEMP 37; O2SAT 100
[2016-12-16] VITALS (15 sets, daily range): BP systolic 120–150; BP diastolic 54–69; PULSE 70–82; TEMP 37–37.6; O2SAT 91–100
[2016-12-16] MEDS: HYDROCODONE/ACETAMOPHEN 5/325MG TAB PO PRN ×2 (00:07→05:51)
[2016-12-16] MEDS: MoRPHine SULFATE 4 MG/ML 1 ML CARP\\VIAL IV PRN ×4 (02:19→16:36)
[2016-12-16] MEDS: LINEZOLID / D5W 600 MG in PREMIXED IN D5W 300 ML IV SCH ×3 (05:48→16:36)
[2016-12-16] MEDS: LEVOTHYROXINE SODIUM PO SCH ×2 (05:52)
[2016-12-16 06:01] LABS: BASO % 0.2 %; BASO ABS # 0.01 K/uL (0-0.2); EOS % 7.1 %; HEMATOCRIT 22.3 % (37-47); IG% 0.2 %; LYMPH ABS # 0.54 K/uL (1.2-3.4); MEAN CELL VOLUME 87.5 fL (80-100); MEAN CORPUSCULAR HGB CONC 33.2 g/dl (32-36); MEAN PLATELET VOLUME 8.3 fL (7.4-10.4); MONO % 14.9 %; NEUT % 66.6 %; PLATELET COUNT 109 K/uL (130-400); RED BLOOD COUNT 2.55 M/uL (4.2-5.4); WHITE BLOOD COUNT 4.91 K/uL (4.8-10.8)
[2016-12-16 06:26] LABS: COMPLETE YES
[2016-12-16 06:37] LABS: BUN/CREATININE RATIO 15.1 (10-20); CALCIUM 8.9 mg/dl (8.5-10.1); CREATININE 1.3 mg/dl (0.60-1.20); POTASSIUM 4.3 mmol/L (3.5-5.1)
[2016-12-16] MEDS: POTASSIUM CHLORIDE 20 MEQ TABCR PO SCH (08:51)
[2016-12-16] MEDS: LACTOBACILLUS ACIDOPHILUS (FLORANEX) TAB PO SCH ×3 (08:51→18:33)
[2016-12-16] MEDS: FERROUS GLUCONATE 324 MG TAB PO SCH (08:51)
[2016-12-16] MEDS: FUROSEMIDE 20 MG TAB PO SCH (08:51)
[2016-12-16] MEDS: DIGOXIN 0.125 MG TAB PO SCH (08:52)
[2016-12-16] MEDS: PANTOprazole SOD 40 MG TAB PO SCH (08:52)
[2016-12-16] MEDS: SPIRONOLACTONE 25 MG TAB PO SCH (08:53)
[2016-12-16] MEDS: TIOTROPIUM BROMIDE 5 PUFF/90 MCG INH INH SCH (08:53)
[2016-12-16] MEDS: FLUTICASONE/SALMETEROL 250/50 (ADVAIR) 14 PUFF/1 INHALER INH SCH ×2 (08:53→21:49)
[2016-12-16] MEDS: MAGNESIUM OXIDE 400 MG TAB PO SCH ×2 (08:53→21:48)
[2016-12-16] MEDS: DILTIAZEM HCL 240 MG CAPCR PO SCH (08:53)
[2016-12-16] MEDS: EUCERIN CR 120 GM JAR EXT SCH ×2 (08:54→21:49)
[2016-12-16] MEDS: INSULIN ASPART 100 UNITS/ML 3 ML PEN SC SCH ×4 (08:57→21:54)
[2016-12-16] MEDS: INSULIN GLARGINE SOLOSTAR 100 UNITS/ML 3 ML PEN SC SCH ×2 (08:58→21:52)
--- NOTE | 2016-12-16 09:04 | Medical Consult ---
Consultation Date of Consultation: Dec 16, 2016. Attending Physician: Jensen Limon D.O. Reason for Consultation: left foot osteomyelitis, diabetic foot ulcer History of Present Illness Patient is a 71 year old female who was referred to Dr. Unger from Dr. Wells. She was seen in our outpatient office on Friday12/11/16. She has been followed at the Wound clinic for the last 6 months after a callus on the medial aspect of her foot opened up and began draining. She has had a wound vac on her foot for the last 4 months approximately. She has been on oral antibiotics per ID. After a lengthy discussion regarding treatment plans, she agreed to proceed with a left below knee amputation. She was scheduled for surgery on 01/14. She was a resident of [facility], but signed herself out AMA on due to "Running out of money" and why should she be there if they "were going to take it off". Once home that evening she states that she put weight on her left foot and developed severe pain of her left foot. She states that she's never had pain like she has now. She went to the Wound Clinic on Friday and had a lot of bleeding to the point that it was uncontrolled and the wound vac could not be reapplied. She was advised to go the ED for admission and inpatient evaluation by Dr. Unger. She states that it was also recommended for her to return to [facility], but she "can't afford it" and had a lot of pain , so she came to the ED on Friday12/13/16. She was admitted by medicine. Dr. Unger was consulted for evaluation and treatment of her left foot ulcer, osteomyelitis and Charcot arthropathy. She denies new injury, just states she put her foot down. She states that she has had diabetic neuropathy for many years. Past Medical/Surgical History Medical Problems: (1) Atrial fibrillation Status: Acute (2) Bifascicular block Status: Acute (3) Cellulitis of both lower extremities Status: Acute (4) Cellulitis of foot, left Status: Acute (5) Cellulitis of left lower leg Status: Acute (6) CHF (congestive heart failure) Status: Acute (7) Constipation Status: Acute (8) Diabetic foot ulcer Status: Acute (9) Electrolyte abnormality Status: Acute (10) Hypokalemia Status: Acute (11) Leukocytosis Status: Acute (12) Sepsis Status: Acute (13) UTI (urinary tract infection) Status: Acute Family History Heart disease Social History Smoking Status: Former Smoker Alcohol Use: none Drug Use: none Marital Status: Housing Status: lives with family, pen[facility]ent[facility] Occupation Status: disabled Allergies Coded Allergies: Duloxetine (Verified Adverse Reaction, Mild, DIZZINESS, 10/15/16) Indigotindisulfonate (Verified Adverse Reaction, Unknown, "spaced out", 10/15/16) Home Medications Active Novolog Flexpen (Insulin Aspart) 100 Units/Ml Inj 0 Units SC ACHS Floranex (Lactobacillus Acidophilus) 1 Tab Tab 2 Tab PO TIDM [place] 5MG/325MG (Acetaminophen/Hydrocodone Bitart) Tab 1 Tab PO Q6H PRN 30 Days PRN PAIN Ultram (Tramadol HCl) 50 Mg Tab 50 Mg PO Q8H PRN 30 Days Klor-Con M20 (Potassium Chloride) 20 Meq Tabcr 20 Meq PO DAILY 30 Days Lasix (Furosemide) 20 Mg Tab 1 Tab PO DAILY 30 Days Spironolactone 25 Mg Tab 25 Mg PO QAM 30 Days Reported Levaquin (Levofloxacin) 500 Mg Tab 500 Mg PO DAILY 30 Days Zyvox (Linezolid) 600 Mg Tab 600 Mg PO BID 30 Days Spiriva Handihaler (Tiotropium [place]) 30 Puff/540 Mcg Aerp 1 Cap INH DAILY Synthroid (Levothyroxine Sodium) 200 Mcg Tab 200 Mcg PO DAILY TAKE WITH 50MCG TO TOTAL 250MCG Advair Diskus 250/50 60 Dose (Fluticasone Prop/Salmeterol) 1 Ea Aerp 1 Puff INH BID Ferrous Gluconate 324 Mg Tab 324 Mg PO DAILY Diltiazem Hcl (Diltiazem Hcl Extended Release) 240 Mg Cap 240 Mg PO QAM Levothyroxine Sodium 50 Mcg Tab 50 Mcg PO DAILY TAKE WITH 200MCG = 250MCG DAILY. Nitrostat (Nitroglycerin) 0.4 Mg Tab 0.4 Mg UT PRN NEEDED FOR CHEST PAIN : ONE TABLET, UNDER THE TONGUE, EVERY 5 MINUTES UP TO 3 DOSES. Miralax (Polyethylene Glycol 3350) 1 Pow Pow 17 Gm PO DAILY PRN Eucerin (Emollient) 1 Lot Lot 1 Appln TOP BID apply to legs Tylenol (Acetaminophen) 325 Mg Tab 650 Mg PO Q8H PRN Mag-Ox (Magnesium Oxide) 400 Mg Tab 400 Mg PO BID Oxygen Gas 3 Liters NA CONTINOUS Digoxin 0.125 Mg Tab 0.125 Mcg PO QAM Theophylline Cr (Theophylline) 300 Mg Tab 600 Mg PO HS Prilosec (Omeprazole) 20 Mg Cap 20 Mg PO DAILY Current Inpatient Medications Current Inpatient Medications Medications (Trade) Dose Ordered Sig/Hans Route Start Time Stop Time Status Last Admin Dose Admin Acetaminophen (Tylenol Tab) 650 mg Q4H PRN PO 12/13/16 18:15 01/12/17 18:14 Al Hydrox/Mg Hydrox/Simethicone (Maalox Max Susp) 15 ml Q4H PRN PO 12/13/16 18:15 01/12/17 18:14 Magnesium Hydroxide (Milk Of Magnesia Susp) 30 ml Q6H PRN PO 12/13/16 18:15 01/12/17 18:14 Polyethylene (Miralax Powder Packet) 17 gm DAILY PRN PO 12/13/16 18:15 01/12/17 18:14 Ondansetron HCl (Zofran Inj) 4 mg Q6H PRN IV 12/13/16 18:15 01/12/17 18:14 Digoxin (Lanoxin Tab) 0.125 mg QAM PO 12/14/16 09:00 01/13/17 08:59 12/15/16 09:22 0.125 MG Ferrous Gluconate (Ferrous Gluconate Tab) 324 mg DAILY PO 12/14/16 09:00 01/13/17 08:59 12/15/16 09:22 324 MG Salmeterol Xinafoate/ Fluticasone (Advair Diskus 250/50 Inh) 1 puff BID INH 12/13/16 21:00 01/12/17 20:59 12/15/16 21:42 1 PUFF Furosemide (Lasix Tab) 20 mg DAILY PO 12/14/16 09:00 01/13/17 08:59 12/15/16 09:23 20 MG Acetaminophen/ Hydrocodone Bitart ([place] 5/325 Tab) 1 tab Q6H PRN PO 12/13/16 18:15 12/27/16 18:14 12/16/16 05:51 1 TAB Lactobacillus Acidophilus (Floranex Tab) 2 tab TIDM PO 12/14/16 08:30 01/13/17 08:29 12/15/16 17:53 2 TAB Magnesium Oxide (Mag-Ox Tab) 400 mg BID PO 12/13/16 21:00 01/12/17 20:59 12/15/16 21:57 400 MG Nitroglycerin (Nitrostat Tab) 0.4 mg DAILY PRN SL 12/13/16 18:15 01/12/17 18:14 Potassium Chloride (Klor-Con Tab) 20 meq DAILY PO 12/14/16 09:00 01/13/17 08:59 12/15/16 09:23 20 MEQ Spironolactone (Aldactone Tab) 25 mg QAM PO 12/14/16 09:00 01/13/17 08:59 12/15/16 09:25 25 MG Theophylline (Paul-Dur Extended Rel Tab) 600 mg HS PO 12/13/16 21:00 01/12/17 20:59 12/15/16 21:58 600 MG Tiotropium [place] (Spiriva Handihaler Inhaler) 1 puff DAILY INH 12/14/16 09:00 01/13/17 08:59 12/15/16 09:24 1 PUFF Tramadol HCl (Ultram Tab) 50 mg Q8H PRN PO 12/13/16 18:15 01/12/17 18:14 Diltiazem HCl (Cardizem Cd Cap) 240 mg QAM PO 12/14/16 09:00 01/13/17 08:59 12/15/16 09:25 240 MG Multi-Ingredient Ointment 1 appln 1 appln BID EXT 12/13/16 21:00 01/12/17 20:59 12/15/16 09:25 1 APPLN Levofloxacin 750 mg/Prmx 150 ml @ 100 mls/hr DAILY@1800 IV 12/14/16 18:00 01/24/17 17:59 12/15/16 17:53 100 MLS/HR Linezolid/Prmx (Zyvox / D5W/ Premixed D5W) 300 ml @ 300 mls/hr Q12@0500,1700 IV 12/14/16 05:00 01/25/17 04:59 12/16/16 07:01 300 MLS/HR Pantoprazole Sodium (Protonix Tab) 40 mg QAM PO 12/14/16 09:00 01/13/17 08:59 12/15/16 09:23 40 MG Insulin Aspart (novoLOG ASPART) SLIDING SCALE G... ACHS SC 12/13/16 21:00 01/12/17 20:59 12/15/16 21:47 5 UNITS Morphine Sulfate (MoRPHine SULFATE INJ) 2 mg Q4H PRN IV 12/13/16 19:00 12/27/16 18:59 12/15/16 17:49 2 MG Levofloxacin (Consult) 1 ea UD PRN N/A 12/13/16 20:30 01/12/17 20:29 Levothyroxine Sodium/ Levothyroxine Sodium (Synthroid Tab/ Synthroid Tab) 250 mcg DAILYBB PO 12/14/16 06:00 01/13/17 05:59 12/16/16 05:52 250 MCG Glucose (Glucose 40% Gel) 15-30 GRAMS 15 GRAMS... UD PRN PO 12/14/16 19:00 01/13/17 18:59 Glucose (Glucose Chew Tab) 4-8 Tablets 4 Tabl... UD PRN PO 12/14/16 19:00 01/13/17 18:59 Dextrose (Dextrose 50% 50ML Syringe) 25-50ML OF 50% DW IV FOR... UD PRN IV 12/14/16 19:00 01/13/17 18:59 Glucagon (Glucagon Inj) 1 mg UD PRN SQ 12/14/16 19:00 01/13/17 18:59 Sodium Chloride (King Nasal [place]) 1 sprays QID PRN NA 12/15/16 12:45 01/14/17 12:44 Insulin Glargine (Lantus Solostar Pen) 10 unit BID SC 12/15/16 21:00 01/14/17 20:59 12/15/16 21:48 10 UNIT Morphine Sulfate (MoRPHine SULFATE INJ) 4 mg Q3HWA PRN IV 12/15/16 18:00 12/29/16 17:59 12/16/16 07:05 4 MG Gabapentin (Neurontin Cap) 300 mg HS PO 12/15/16 21:00 01/14/17 20:59 12/15/16 22:09 300 MG Review of Systems Constitutional: No chills, No fever, No weight loss Eyes: No eye pain ENT: No hearing loss Respiratory: No cough, No shortness of breath Cardiovascular: No chest pain Abdomen: No nausea, No pain, No vomiting Musculoskeletal: + joint pain (left foot/ankle), + swelling (left leg) Neurologic: + balance problems Psychiatric: + problem reported (she states that she has been having nightmares about the amputation, she states that "she can hear and see them cutting her leg off". ) Hematologic / Lymphatic: No abnormal bleeding/bruising, No clotting problems Integumentary: + color change (left leg, chronic insufficiency changes/erythema /scaly skin) Physical Exam Date Time Temp Pulse Resp B/P Pulse Ox O2 Delivery O2 Flow Rate FiO2 12/16/16 08:31 100 Nasal Cannula 3.0 12/16/16 08:13 37.1 73 16 127/62 100 Nasal Cannula 3.0 12/16/16 08:04 37.1 73 16 127/62 100 Nasal Cannula 2.0 12/16/16 07:20 Nasal Cannula 3.0 Humidified Oxygen 12/16/16 00:10 Nasal Cannula 3.0 Humidified Oxygen 12/15/16 23:16 37.0 82 16 137/61 100 Nasal Cannula 3.0 12/15/16 16:15 Nasal Cannula 3.0 Humidified Oxygen 12/15/16 15:37 37.1 71 17 133/61 100 Nasal Cannula 3.0 12/15/16 09:22 84 General Appearance: WD/WN, no apparent distress Head: normocephalic, atraumatic Eyes: normal inspection, PERRL, EOMI ENT: normal ENT inspection, hearing grossly normal Extremities/Musculoskelatal: + pedal edema, + swelling, + pertinent finding ( left foot wrapped in compression dressing left foot; dressing not removed today as Dr. Unger looked at it Friday. Her toes are swollen, able to wiggle slightly. Nontender to palpation, toes are warm, good cap refill. Pain with palpation of anterior left tib/fib with erythema, edema and scaly skin. Calf supple, nontender with palpation, tolerates gentle left knee ROM) Neurologic/Psych: alert, oriented x 3, + pertinent finding (tearful regarding discussion of upcoming surgery) Laboratory Results Last 24 Hours Test 12/15/16 11:58 12/15/16 17:16 12/15/16 20:03 12/15/16 20:52 Bedside Glucose 279 mg/dl 222 mg/dl 251 mg/dl 295 mg/dl Test 12/16/16 05:18 12/16/16 07:57 White Blood Count 4.91 K/uL Red Blood Count 2.55 M/uL Hemoglobin 7.4 g/dL Hematocrit 22.3 % Mean Corpuscular Volume 87.5 fL Mean Corpuscular Hemoglobin 29.0 pg Mean Corpuscular Hemoglobin Concent 33.2 g/dl Platelet Count 109 K/uL Mean Platelet Volume 8.3 fL Neutrophils (%) (Auto) 66.6 % Lymphocytes (%) (Auto) 11.0 % Monocytes (%) (Auto) 14.9 % Eosinophils (%) (Auto) 7.1 % Basophils (%) (Auto) 0.2 % Neutrophils # (Auto) 3.27 K/uL Lymphocytes # (Auto) 0.54 K/uL Monocytes # (Auto) 0.73 K/uL Eosinophils # (Auto) 0.35 K/uL Basophils # (Auto) 0.01 K/uL RDW Standard Deviation 64.8 fL RDW Coefficient of Variation 20.6 % Immature Granulocyte % (Auto) 0.2 % Immature Granulocyte # (Auto) 0.01 K/uL Sodium Level 136 mmol/L Potassium Level 4.3 mmol/L Chloride Level 100 mmol/L Carbon Dioxide Level 31 mmol/L Anion Gap 5.0 mmol/L Blood Urea Nitrogen 20 mg/dl Creatinine 1.30 mg/dl Est Creatinine Clear Calc Drug Dose 43.9 ml/min Estimated GFR () 47.5 Estimated GFR (Non- 41.0 BUN/Creatinine Ratio 15.1 Random Glucose 145 mg/dl Calcium Level 8.9 mg/dl Bedside Glucose 198 mg/dl Assessment & Plan Assessment: Chronic osteomyelitis left foot, diabetic foot ulcer, charcot arthropathy left foot Plan: As discussed as an outpatient, we will plan for left below knee amputation sometime this week during her hospital stay. She will need cleared for surgery by medicine. We will consult Dr. Gray for evaluation of her left leg and to perform non-invasive vascular studies to assist in determining amputation level. She understands and agrees. She should remain nonweight bearing left lower extremity. After Dr. Gray's evaluation we will further discuss treatment plan at that time. She is aware and agrees with plan. All questions were answered. She will need SNF after surgery for recovery.
[2016-12-16] MEDS: POLYETHYLENE (MIRALAX) 17 GM PACK PO SCH ×2 (11:17→21:48)
--- NOTE | 2016-12-16 11:57 | Surgery Consultation ---
Consultation Date of Service Dec 16, 2016. (Brisa Burns, NORA) Chief Complaint LLE wound, eval vascular status for amputation (Brisa Burns, NORA) History of Present Illness The patient is a 71 year old female with multiple medical problems, including HTN, CAD, DMII, a fib, hypothyroidism, admitted with chronic LLE wound and osteomyelitis, seen today regarding vascular status for LLE BKA vs AKA. Pt admits some pain to LLE. States she had a wound vac on it for a while, but it was removed just before leaving [facility]. Denies OLVERA, fever, chills, chest pain, SOB, abd pain, N/V, rest pain, claudication, other complaints. Seen by orthopedics and recommended to have BKA, but requested vascular eval before surgery. (Brisa Burns, NORA) Vitals Vital Signs Past 12 Hours Date Time Temp Pulse Resp B/P Pulse Ox O2 Delivery O2 Flow Rate FiO2 12/16/16 08:52 74 12/16/16 08:31 100 Nasal Cannula 3.0 12/16/16 08:13 37.1 73 16 127/62 100 Nasal Cannula 3.0 12/16/16 08:04 37.1 73 16 127/62 100 Nasal Cannula 2.0 12/16/16 07:20 Nasal Cannula 3.0 Humidified Oxygen 12/16/16 00:10 Nasal Cannula 3.0 Humidified Oxygen (Brisa Bunrs, NORA) Allergies Coded Allergies: Duloxetine (Verified Adverse Reaction, Mild, DIZZINESS, 10/15/16) Indigotindisulfonate (Verified Adverse Reaction, Unknown, "spaced out", 10/15/16) Home Medications Scheduled Digoxin (Digoxin), 0.125 MCG PO QAM Diltiazem Hcl Extended Release (Diltiazem Hcl), 240 MG PO QAM Emollient (Eucerin), 1 APPLN TOP BID Ferrous Gluconate (Ferrous Gluconate), 324 MG PO DAILY Fluticasone Prop/Salmeterol (Advair Diskus 250/50 60 Dose), 1 PUFF INH BID Furosemide (Lasix), 1 TAB PO DAILY Insulin Aspart (Novolog Flexpen), 0 UNITS SC ACHS Lactobacillus Acidophilus (Floranex), 2 TAB PO TIDM Levofloxacin (Levaquin), 500 MG PO DAILY Levothyroxine Sodium (Levothyroxine Sodium), 50 MCG PO DAILY Levothyroxine Sodium (Synthroid), 200 MCG PO DAILY Linezolid (Zyvox), 600 MG PO BID Magnesium Oxide (Mag-Ox), 400 MG PO BID Nitroglycerin (Nitrostat), 0.4 MG UT PRN Omeprazole (Prilosec), 20 MG PO DAILY Oxygen (Oxygen), 3 LITERS NA CONTINOUS Potassium Chloride (Klor-Con M20), 20 MEQ PO DAILY Spironolactone (Spironolactone), 25 MG PO QAM Theophylline (Theophylline Cr), 600 MG PO HS Tiotropium Cardale (Spiriva Handihaler), 1 CAP INH DAILY Scheduled PRN Acetaminophen (Tylenol), 650 MG PO Q8H PRN for mild pain or fever Hydrocodone/Acetaminophen 5MG/325MG ([place] 5MG/325MG), 1 TAB PO Q6H PRN for mod Pain Polyethylene Glycol 3350 (Miralax), 17 GM PO DAILY PRN for Constipation Tramadol (Ultram), 50 MG PO Q8H PRN for Pain Problem List Medical Problems: (1) Afib (2) AINSLEY (acute kidney injury) (3) Ambulatory dysfunction (4) Ambulatory dysfunction (5) Anemia (6) CHF (congestive heart failure) (7) Cholecystectomy (8) Chronic congestive heart failure (9) Chronic obstructive lung disease (10) CKD (chronic kidney disease) stage 3, GFR 30-59 ml/min (11) COPD exacerbation (12) Diabetes mellitus (13) History of anxiety (14) History of hypokalemia (15) Hypokalemia (16) Hypothyroidism (17) Obstructive sleep apnea (18) Open wound (19) Osteomyelitis of left foot (20) PNA (pneumonia) (21) Septicemia due to group B Streptococcus (22) Shortness of breath (23) Wound infection (Brisa Burns PA-C) Surgical / Medical History Hx Cardiac Surgery: No Hx Abdominal Surgery: Yes (cholectomy) Hx Cancer Surgery: No Hx Thoracic Surgery: No Hx Orthopedic: No Hx Urinary Tract Surgery: No HX Other Surgery: No Past Medical/Surgical History: Diabetes, High Cholesterol, Hypertension, Kidney Disease (Brisa Burns PA-C) Family History Heart disease (Brisa Burns PA-C) Heart disease (Graham Gray M.D.) Social History Smoking Status: Former Smoker Hx Tobacco Use In Past Year?: No Hx Alcohol Use - Type & Amnt: No Hx Substance Use -Type & Amnt: No (Brisa Burns, NORA) Review of Systems Constitutional: + fatigue, No chills, No fever, No malaise Skin: No change in color Eyes: No visual changes ENMT: No sore throat Respiratory: No TURCIOS, No cough, No hemoptysis, No short of breath Cardiovascular: + edema, No chest pain, No intermittent claudication, No palpitations, No syncope Gastrointestinal: No abdominal pain, No diarrhea, No nausea, No vomiting Genitourinary - Female: No dysuria, No hematuria Neurologic: No dizziness, No lethargy, No numbness (Brisa Burns, NORA) Physical Exam Constitutional: General Apperance: well-nourished, well-developed, obese Level of Distress: NAD, acutely ill, chronically ill Psychiatric: Mental Status: active & alert, normal mood, normal affect Orientation: oriented except where noted, to time, to place, to person Memory: recent memory normal, remote memory normal Head: normocephalic, atraumatic Eyes: EOM: EOMI ENMT: normal ENT inspection, hearing grossly normal Neck: supple, trachea midline Lungs: Respiratory effort: no dyspnea Auscultation: no wheezing, no rales/crackles, no rhonchi, decreased breath sounds Cardiovascular: Apical Impulse: not displaced Heart Auscultation: no rubs, no gallops, pertinent finding (irregular) Peripheral Pulses: Pulses: full and equal, in all extremities except if noted Bruits: none appreciated Carotid Pulse: normal on the left, normal on the right Radial Pulse: normal on the left, normal on the right Femoral Pulse: decreased on the left, decreased on the right Posterior Tibialis Pulse: decreased on the right, pertinent finding (not eval d/t dressing) Dorsalis Pedis Pulse: decreased on the right, pertinent finding (not eval d/ t dressing on LLE) Abdomen: Bowel Sounds: normal Inspection & Palpation: soft, non-distended, no tenderness, guarding & rebound Musculoskeletal: normal strength (5/5 throughout), normal tone Extremities: Upper Right: no cyanosis, no edema, no varicosities Upper Left: no cyanosis, no edema, no varicosities Lower Right: no cyanosis, no varicosities, no palpable cord, edema Lower Left: no cyanosis, no varicosities, no palpable cord, edema Neurologic: Cranial Nerves: grossly intact Sensation: grossly intact (Brisa Burns, PA-C) Assessment and Plan ASSESSMENT and PLAN: LLE osteomyelitis PAD, mild Pt with mild PAD and 3 vessel runoff per US. Discussed with Rose, agrees with LLE BKA. No vascular surgical intervention required at this time. Please call if needed. (Brisa Burns, PA-C) Agree with exam and treatment plan of the Vascular PA. Would recommend left BKA. With the present vascular supply, it should heal well at that level. Thank you very much for letting me participate in the care of this patient. (Graham Gray M.D.)
--- NOTE | 2016-12-16 12:08 | DIAGNOSTIC IMAGING REPORT ---
LEFT LEG ARTERIAL DOPPLER STUDY CLINICAL HISTORY: left foot osteomyelitis. COMPARISON STUDY: Bilateral lower arterial Doppler study 06/24/2016. FINDINGS: The patient was unable to tolerate the ankle brachial indices. Calcified plaque throughout the left lower extremity arterial system. Monophasic waveforms throughout the left lower extremity arterial system. No areas of arterial occlusion. Elevated peak velocities seen within the left common femoral, superficial femoral, popliteal, posterior to right suggesting mild stenosis. These measure up to 283 cm/s within the distal left superficial femoral artery. IMPRESSION: 1. Diffuse calcified plaque within the left lower arterial system without evidence for arterial occlusion. 2. Elevated peak systolic velocities within the left common femoral, superficial femoral, popliteal, and posterior tibial artery suggesting mild stenosis. 3. Monophasic waveforms throughout the left lower extremity arterial system. This could proximal proximal stenosis within the iliac arteries. Electronically signed by: Alexander Herman M.D. 12/16/2016 12:06 PM Dictated Date/Time: 12/16/2016 12:01 PM
--- NOTE | 2016-12-16 13:38 | PROGRESS NOTE ---
DATE: 12/16/2016 INPATIENT PROGRESS NOTE SUBJECTIVE: The patient is seen today following admission on Friday for a going Castaneda grade 3 diabetic foot ulcer to the left foot with associated osteomyelitis. The patient had a bowel bleeding problem in the office, requiring hospitalization and further replacement at a retirement facility. The patient states that she is prepared for amputation now, which is planned for this week. The patient denies any new systemic complaints at this time. OBJECTIVE: The patient's vital signs were reviewed and found to be unremarkable. The patient is afebrile. The ulcerative site today shows to be unchanged from 3 days prior. There is no active bleeding at the present time; there is some periwound erythema and swelling present and no significant tenderness to palpation noted. ASSESSMENT: Castaneda grade 3 diabetic foot ulcer, left foot with associated osteomyelitis. PLAN: At this time, the site will just continue to be dressed with kaltostat, ABDs and gauze. The patient is continued to be nonweightbearing. The patient is pending an evaluation by Dr. Gray to determine vascular status prior to a probable BK amputation per Dr. Unger in the next few days. The patient will continue to be monitored during her hospitalization and certainly monitored in the outpatient setting when she is discharged.
[2016-12-16] MEDS ORDERED: FUROSEMIDE INJ 20 MG in SYRINGE 0 ML IV SCH ×2 (15:15→18:00)
--- NOTE | 2016-12-16 15:36 | Orthopedic Progress Note ---
Orthopedic Progress Note Date of Service Dec 16, 2016. Subjective Additional Notes: Discussed with patient surgery for Left Below Knee Amputation. She is scared, but seems to understand the importance of having this procedure done. She states that she's been having nightmares about the surgery. She would also like to speak with Anesthesia beforehand as well. Tolerating diet today, pain controlled with IV morphine. Objective dressing C/D/I, A&O x3, toes mobile Date Time Temp Pulse Resp B/P Pulse Ox O2 Delivery O2 Flow Rate FiO2 12/16/16 08:52 74 12/16/16 08:31 100 Nasal Cannula 3.0 12/16/16 08:13 37.1 73 16 127/62 100 Nasal Cannula 3.0 12/16/16 08:04 37.1 73 16 127/62 100 Nasal Cannula 2.0 12/16/16 07:20 Nasal Cannula 3.0 Humidified Oxygen 12/16/16 00:10 Nasal Cannula 3.0 Humidified Oxygen 12/15/16 23:16 37.0 82 16 137/61 100 Nasal Cannula 3.0 12/15/16 16:15 Nasal Cannula 3.0 Humidified Oxygen 12/15/16 15:37 37.1 71 17 133/61 100 Nasal Cannula 3.0 Laboratory Results 24 Hours: Test 12/16/16 05:18 White Blood Count 4.91 K/uL Red Blood Count 2.55 M/uL Hemoglobin 7.4 g/dL Hematocrit 22.3 % Mean Corpuscular Volume 87.5 fL Mean Corpuscular Hemoglobin 29.0 pg Mean Corpuscular Hemoglobin Concent 33.2 g/dl Platelet Count 109 K/uL Mean Platelet Volume 8.3 fL Neutrophils (%) (Auto) 66.6 % Lymphocytes (%) (Auto) 11.0 % Monocytes (%) (Auto) 14.9 % Eosinophils (%) (Auto) 7.1 % Basophils (%) (Auto) 0.2 % Neutrophils # (Auto) 3.27 K/uL Lymphocytes # (Auto) 0.54 K/uL Monocytes # (Auto) 0.73 K/uL Eosinophils # (Auto) 0.35 K/uL Basophils # (Auto) 0.01 K/uL Assessment & Plan Assessment: Left foot chronic osteomyelitis, diabetic foot ulcer, charcot arthropathy Plan: Plan is for her to undergo a left below knee amputation on 12/17/[address] Unger. Risks/complications discussed, informed consent obtained and on chart. As discussed with medicine they will transfuse 2 units PRBCs today. Repeat CBC in AM. Have 2 units PRBCs on hold for tomorrow in case needed during or after surgery. All questions answered, attempted to call her son to update him regarding surgical plan, no answer. Left our office number for him to call with questions or concerns. Will make NPO p MN. Anesthesia consult placed as well. Will discuss findings with Dr. Unger as well.
--- NOTE | 2016-12-16 16:21 | Medical Consult ---
Consultation Date of Consultation: Dec 16, 2016. Attending Physician: Wade Lui MD Reason for Consultation: Zyvox History of Present Illness Patient is a 71-year-old female who presented to the emergency department with complaints of worsening left lower extremity wound. The patient has had a chronic left lower extremity wound that has been treated at the [facility] and at [facility]. The patient was discharged from [facility] on 12/12/2016. She was previously on antibiotic therapy and had a wound VAC on her left lower extremity, but that was removed prior to her leaving [facility]. The patient ultimately was scheduled for amputation of the left lower extremity due to chronic osteomyelitis and wound nonhealing. She had acutely worsening pain prior to admission and decided to present to the hospital for evaluation. She states that she has had sweats and chills on an off at home, but denies fever, shortness of breath, chest pains, palpitations, urinary symptoms, nausea, vomiting, or diarrhea. Since admission, the patient white blood cell count has been stable and was 7.29 on admission. Her C reactive protein was 9.76 on admission, and her ESR was 31. She was placed on p.o. Zyvox and Levaquin which was her previous antibiotic therapy due to her culture results. Her previous cultures were reviewed today. It is noted that the patient has had Enterobacter, Enterococcus faecalis, peptostreptococcus, and MRSA from her wounds in th the past. She is anticipating left BKA tomorrow. I did also discuss this patient with Carole George PA-C. Past Medical/Surgical History Medical Problems: (1) Atrial fibrillation Status: Acute (2) Bifascicular block Status: Acute (3) Cellulitis of both lower extremities Status: Acute (4) Cellulitis of foot, left Status: Acute (5) Cellulitis of left lower leg Status: Acute (6) CHF (congestive heart failure) Status: Acute (7) Constipation Status: Acute (8) Diabetic foot ulcer Status: Acute (9) Electrolyte abnormality Status: Acute (10) Hypokalemia Status: Acute (11) Leukocytosis Status: Acute (12) Sepsis Status: Acute (13) UTI (urinary tract infection) Status: Acute Medical Problems: (1) Afib (2) AINSLEY (acute kidney injury) (3) Ambulatory dysfunction (4) Ambulatory dysfunction (5) Anemia (6) CHF (congestive heart failure) (7) Cholecystectomy (8) Chronic congestive heart failure (9) Chronic obstructive lung disease (10) CKD (chronic kidney disease) stage 3, GFR 30-59 ml/min (11) COPD exacerbation (12) Diabetes mellitus (13) History of anxiety (14) History of hypokalemia (15) Hypokalemia (16) Hypothyroidism (17) Obstructive sleep apnea (18) Open wound (19) Osteomyelitis of left foot (20) PNA (pneumonia) (21) Septicemia due to group B Streptococcus (22) Shortness of breath (23) Wound infection Family History Heart disease Noncontributory Social History Smoking Status: Former Smoker Alcohol Use: none Drug Use: none Marital Status: Housing Status: lives with family, intermediate Occupation Status: disabled Allergies Coded Allergies: Duloxetine (Verified Adverse Reaction, Mild, DIZZINESS, 10/15/16) Indigotindisulfonate (Verified Adverse Reaction, Unknown, "spaced out", 10/15/16) Home Medications Reported Home Medications Medications Dose Route/Sig Max Daily Dose Days Date Category Dose Instructions Levaquin (Levofloxacin) 500 Mg Tab 500 Mg PO DAILY 30 11/25/16 Reported Zyvox (Linezolid) 600 Mg Tab 600 Mg PO BID 30 11/25/16 Reported Novolog Flexpen (Insulin Aspart) 100 Units/Ml Inj 0 Units SC ACHS 10/20/16 Rx Floranex (Lactobacillus Acidophilus) 1 Tab Tab 2 Tab PO TIDM 10/20/16 Rx [place] 5MG/325MG (Acetaminophen/Hydrocodone Bitart) Tab 1 Tab PO Q6H PRN 30 10/20/16 Rx PRN PAIN Ultram (Tramadol HCl) 50 Mg Tab 50 Mg PO Q8H PRN 30 10/20/16 Rx Spiriva Handihaler (Tiotropium [place]) 30 Puff/540 Mcg Aerp 1 Cap INH DAILY 10/15/16 Reported Synthroid (Levothyroxine Sodium) 200 Mcg Tab 200 Mcg PO DAILY 10/15/16 Reported TAKE WITH 50MCG TO TOTAL 250MCG Advair Diskus 250/50 60 Dose (Fluticasone Prop/Salmeterol) 1 Ea Aerp 1 Puff INH BID 10/15/16 Reported Ferrous Gluconate 324 Mg Tab 324 Mg PO DAILY 10/15/16 Reported Diltiazem Hcl (Diltiazem Hcl Extended Release) 240 Mg Cap 240 Mg PO QAM 10/15/16 Reported Klor-Con M20 (Potassium Chloride) 20 Meq Tabcr 20 Meq PO DAILY 30 09/26/16 Rx Lasix (Furosemide) 20 Mg Tab 1 Tab PO DAILY 30 09/26/16 Rx Spironolactone 25 Mg Tab 25 Mg PO QAM 30 09/26/16 Rx Levothyroxine Sodium 50 Mcg Tab 50 Mcg PO DAILY 09/20/16 Reported TAKE WITH 200MCG = 250MCG DAILY. Nitrostat (Nitroglycerin) 0.4 Mg Tab 0.4 Mg UT PRN 09/19/16 Reported NEEDED FOR CHEST PAIN : ONE TABLET, UNDER THE TONGUE, EVERY 5 MINUTES UP TO 3 DOSES. Miralax (Polyethylene Glycol 3350) 1 Pow Pow 17 Gm PO DAILY PRN 08/06/16 Reported Eucerin (Emollient) 1 Lot Lot 1 Appln TOP BID 08/06/16 Reported apply to legs Tylenol (Acetaminophen) 325 Mg Tab 650 Mg PO Q8H PRN 08/06/16 Reported Mag-Ox (Magnesium Oxide) 400 Mg Tab 400 Mg PO BID 05/17/16 Reported Oxygen Gas 3 Liters NA CONTINOUS 02/20/16 Reported Digoxin 0.125 Mg Tab 0.125 Mcg PO QAM 02/20/16 Reported Theophylline Cr (Theophylline) 300 Mg Tab 600 Mg PO HS 05/21/14 Reported Prilosec (Omeprazole) 20 Mg Cap 20 Mg PO DAILY 08/22/13 Reported Current Inpatient Medications Current Inpatient Medications Medications (Trade) Dose Ordered Sig/Hans Route Start Time Stop Time Status Last Admin Dose Admin Acetaminophen (Tylenol Tab) 650 mg Q4H PRN PO 12/13/16 18:15 01/12/17 18:14 Al Hydrox/Mg Hydrox/Simethicone (Maalox Max Susp) 15 ml Q4H PRN PO 12/13/16 18:15 01/12/17 18:14 Magnesium Hydroxide (Milk Of Magnesia Susp) 30 ml Q6H PRN PO 12/13/16 18:15 01/12/17 18:14 Ondansetron HCl (Zofran Inj) 4 mg Q6H PRN IV 12/13/16 18:15 01/12/17 18:14 Digoxin (Lanoxin Tab) 0.125 mg QAM PO 12/14/16 09:00 01/13/17 08:59 12/16/16 08:52 0.125 MG Ferrous Gluconate (Ferrous Gluconate Tab) 324 mg DAILY PO 12/14/16 09:00 01/13/17 08:59 12/16/16 08:51 324 MG Salmeterol Xinafoate/ Fluticasone (Advair Diskus 250/50 Inh) 1 puff BID INH 12/13/16 21:00 01/12/17 20:59 12/16/16 08:53 1 PUFF Furosemide (Lasix Tab) 20 mg DAILY PO 12/14/16 09:00 01/13/17 08:59 12/16/16 08:51 20 MG Acetaminophen/ Hydrocodone Bitart ([place] 5/325 Tab) 1 tab Q6H PRN PO 12/13/16 18:15 12/27/16 18:14 12/16/16 05:51 1 TAB Lactobacillus Acidophilus (Floranex Tab) 2 tab TIDM PO 12/14/16 08:30 01/13/17 08:29 12/16/16 13:05 2 TAB Magnesium Oxide (Mag-Ox Tab) 400 mg BID PO 12/13/16 21:00 01/12/17 20:59 12/16/16 08:53 400 MG Nitroglycerin (Nitrostat Tab) 0.4 mg DAILY PRN SL 12/13/16 18:15 01/12/17 18:14 Potassium Chloride (Klor-Con Tab) 20 meq DAILY PO 12/14/16 09:00 01/13/17 08:59 12/16/16 08:51 20 MEQ Spironolactone (Aldactone Tab) 25 mg QAM PO 12/14/16 09:00 01/13/17 08:59 12/16/16 08:53 25 MG Theophylline ([place] Extended Rel Tab) 600 mg HS PO 12/13/16 21:00 01/12/17 20:59 12/15/16 21:58 600 MG Tiotropium [place] (Spiriva Handihaler Inhaler) 1 puff DAILY INH 12/14/16 09:00 01/13/17 08:59 12/16/16 08:53 1 PUFF Tramadol HCl (Ultram Tab) 50 mg Q8H PRN PO 12/13/16 18:15 01/12/17 18:14 Diltiazem HCl (Cardizem Cd Cap) 240 mg QAM PO 12/14/16 09:00 01/13/17 08:59 12/16/16 08:53 240 MG Multi-Ingredient Ointment 1 appln 1 appln BID EXT 12/13/16 21:00 01/12/17 20:59 12/16/16 08:54 1 APPLN Levofloxacin 750 mg/Prmx 150 ml @ 100 mls/hr DAILY@1800 IV 12/14/16 18:00 01/24/17 17:59 12/15/16 17:53 100 MLS/HR Linezolid/Prmx (Zyvox / D5W/ Premixed D5W) 300 ml @ 300 mls/hr Q12@0500,1700 IV 12/14/16 05:00 01/25/17 04:59 12/16/16 07:01 300 MLS/HR Pantoprazole Sodium (Protonix Tab) 40 mg QAM PO 12/14/16 09:00 01/13/17 08:59 12/16/16 08:52 40 MG Insulin Aspart (novoLOG ASPART) SLIDING SCALE G... ACHS SC 12/13/16 21:00 01/12/17 20:59 12/16/16 13:12 7 UNITS Morphine Sulfate (MoRPHine SULFATE INJ) 2 mg Q4H PRN IV 12/13/16 19:00 12/27/16 18:59 12/15/16 17:49 2 MG Levofloxacin (Consult) 1 ea UD PRN N/A 12/13/16 20:30 01/12/17 20:29 Levothyroxine Sodium/ Levothyroxine Sodium (Synthroid Tab/ Synthroid Tab) 250 mcg DAILYBB PO 12/14/16 06:00 01/13/17 05:59 12/16/16 05:52 250 MCG Glucose (Glucose 40% Gel) 15-30 GRAMS 15 GRAMS... UD PRN PO 12/14/16 19:00 01/13/17 18:59 Glucose (Glucose Chew Tab) 4-8 Tablets 4 Tabl... UD PRN PO 12/14/16 19:00 01/13/17 18:59 Dextrose (Dextrose 50% 50ML Syringe) 25-50ML OF 50% DW IV FOR... UD PRN IV 12/14/16 19:00 01/13/17 18:59 Glucagon (Glucagon Inj) 1 mg UD PRN SQ 12/14/16 19:00 01/13/17 18:59 Sodium Chloride ([place] Nasal [place]) 1 sprays QID PRN NA 12/15/16 12:45 01/14/17 12:44 Insulin Glargine (Lantus Solostar Pen) 10 unit BID SC 12/15/16 21:00 01/14/17 20:59 12/16/16 08:58 10 UNIT Morphine Sulfate (MoRPHine SULFATE INJ) 4 mg Q3HWA PRN IV 12/15/16 18:00 12/29/16 17:59 12/16/16 11:17 4 MG Gabapentin (Neurontin Cap) 300 mg HS PO 12/15/16 21:00 01/14/17 20:59 12/15/16 22:09 300 MG Polyethylene 17 gm 17 gm BID PO 12/16/16 09:30 01/15/17 09:29 12/16/16 11:17 17 GM Furosemide 20 mg/ Syringe 2 ml @ 4 mls/min 1800 IV 12/16/16 18:00 12/16/16 20:00 Furosemide/Syringe (Lasix Inj/ Syringe) 2 ml @ 4 mls/min 1630 ONCE IV 12/16/16 16:30 12/16/16 16:31 Review of Systems Constitutional: No chills, No fever, No sweats Eyes: No worsening of vision ENT: No hearing loss Respiratory: No cough, No shortness of breath Cardiovascular: No chest pain Abdomen: No diarrhea, No nausea, No pain, No vomiting Musculoskeletal: + problem reported (pain in the left lower extremity- chronic neuropathy, chronic wound of LLE) Genitourinary - Female: No dysuria, No urinary frequency Integumentary: + new/changing skin lesions (wound left foot), No itch, No rash Physical Exam Date Time Temp Pulse Resp B/P Pulse Ox O2 Delivery O2 Flow Rate FiO2 12/16/16 16:08 37.5 82 18 126/56 97 Nasal Cannula 3.0 Humidified Oxygen 12/16/16 08:52 74 12/16/16 08:31 100 Nasal Cannula 3.0 12/16/16 08:13 37.1 73 16 127/62 100 Nasal Cannula 3.0 12/16/16 08:04 37.1 73 16 127/62 100 Nasal Cannula 2.0 12/16/16 07:20 Nasal Cannula 3.0 Humidified Oxygen 12/16/16 00:10 Nasal Cannula 3.0 Humidified Oxygen 12/15/16 23:16 37.0 82 16 137/61 100 Nasal Cannula 3.0 General Appearance: WD/WN, no apparent distress Head: normocephalic, atraumatic Eyes: normal inspection, sclerae normal ENT: hearing grossly normal Neck: supple, trachea midline Respiratory/Chest: chest non-tender, normal breath sounds, no respiratory distress, no accessory muscle use Cardiovascular: regular rate, rhythm Abdomen/GI: normal bowel sounds, non tender Extremities/Musculoskelatal: + swelling (moderate edema LLE. Pain to palpation of LLE), + pertinent finding (bandage in palce on left foot. C/D/I) Neurologic/Psych: alert, normal mood/affect Skin: + pertinent finding (moderate erythema of the left lower extremity which appears semi-chronic, and mild erythema of the right lower extermity.) Laboratory Results LEFT LEG ARTERIAL DOPPLER STUDY CLINICAL HISTORY: left foot osteomyelitis. COMPARISON STUDY: Bilateral lower arterial Doppler study 06/24/2016. FINDINGS: The patient was unable to tolerate the ankle brachial indices. Calcified plaque throughout the left lower extremity arterial system. Monophasic waveforms throughout the left lower extremity arterial system. No areas of arterial occlusion. Elevated peak velocities seen within the left common femoral, superficial femoral, popliteal, posterior to right suggesting mild stenosis. These measure up to 283 cm/s within the distal left superficial femoral artery. IMPRESSION: 1. Diffuse calcified plaque within the left lower arterial system without evidence for arterial occlusion. 2. Elevated peak systolic velocities within the left common femoral, superficial femoral, popliteal, and posterior tibial artery suggesting mild stenosis. 3. Monophasic waveforms throughout the left lower extremity arterial system. This could proximal proximal stenosis within the iliac arteries. Item Value Date Time MRSA DNA Surveillance Screen - Final Complete 12/13/16 2140 Nasal Specimen Negative for MRSA by DNA Probe Blood Culture - Preliminary Resulted 12/13/16 1630 Blood NO GROWTH TO DATE. Blood Culture - Preliminary Resulted 12/13/16 1620 Blood NO GROWTH TO DATE. Last 24 Hours Test 12/15/16 17:16 12/15/16 20:03 12/15/16 20:52 12/16/16 05:18 Bedside Glucose 222 mg/dl 251 mg/dl 295 mg/dl White Blood Count 4.91 K/uL Red Blood Count 2.55 M/uL Hemoglobin 7.4 g/dL Hematocrit 22.3 % Mean Corpuscular Volume 87.5 fL Mean Corpuscular Hemoglobin 29.0 pg Mean Corpuscular Hemoglobin Concent 33.2 g/dl Platelet Count 109 K/uL Mean Platelet Volume 8.3 fL Neutrophils (%) (Auto) 66.6 % Lymphocytes (%) (Auto) 11.0 % Monocytes (%) (Auto) 14.9 % Eosinophils (%) (Auto) 7.1 % Basophils (%) (Auto) 0.2 % Neutrophils # (Auto) 3.27 K/uL Lymphocytes # (Auto) 0.54 K/uL Monocytes # (Auto) 0.73 K/uL Eosinophils # (Auto) 0.35 K/uL Basophils # (Auto) 0.01 K/uL RDW Standard Deviation 64.8 fL RDW Coefficient of Variation 20.6 % Immature Granulocyte % (Auto) 0.2 % Immature Granulocyte # (Auto) 0.01 K/uL Sodium Level 136 mmol/L Potassium Level 4.3 mmol/L Chloride Level 100 mmol/L Carbon Dioxide Level 31 mmol/L Anion Gap 5.0 mmol/L Blood Urea Nitrogen 20 mg/dl Creatinine 1.30 mg/dl Est Creatinine Clear Calc Drug Dose 43.9 ml/min Estimated GFR () 47.5 Estimated GFR (Non- 41.0 BUN/Creatinine Ratio 15.1 Random Glucose 145 mg/dl Calcium Level 8.9 mg/dl Test 12/16/16 07:57 12/16/16 11:56 Bedside Glucose 198 mg/dl 211 mg/dl Assessment & Plan Diabetic female with chronic left lower extremity wounds and underlying osteomyelitis. Anticipating BKA tomorrow. Discussed with orthopedics and reviewed vascular's recommendations. Patient is currently on PO Zyvox and Levaquin. Feel that these are appropriate to continue through surgery and likely for approximately 7 days after surgery is completed pending wound healing. We will continue to follow. Case reviewed and agree with above assessment.
[2016-12-16] MEDS ORDERED: FUROSEMIDE INJ 20 MG in SYRINGE 0 ML IV ONE (16:30)
[2016-12-16] MEDS: LEVOFLOXACIN / D5W 750 MG in PREMIXED IN D5W 150 ML IV SCH (18:33)
--- NOTE | 2016-12-16 19:04 | PROGRESS NOTE ---
DATE: 12/16/2016 SUBJECTIVE: Valery is admitted to the hospital for her left lower extremity. She is known to me from an outpatient visit last week. She is seen in conjunction with Dominga George. For further details, refer to her dictation. She and I evaluated the patient and I am in agreement with the plan. Events of the last several days have been noted. She is having more pain in her leg. She has been afebrile. Her vital signs have been stable. She is not tachycardic. White count is normal. She is anemic and will receive some blood. She does have mild renal insufficiency. Her blood sugars are noted. Lower extremity ultrasound is noted. Vascular evaluation indicates that a below-knee amputation has adequate vascularity to heal. Anesthesia preop, ID consultation. She has been medically evaluated. She will be n.p.o. after midnight. She will receive 2 units of blood tonight. Will discuss perioperative antibiotics with ID. Her blood thinners have been held. Nutritional status will need to be addressed. She is neuropathic, diabetic, has a Charcot ankle with an open wound that is infected with multiple organisms and likely has osteomyelitis. She is having nightmares and is very fearful, reassurance is offered. The plan is for below-knee amputation. She does have a little bit more swelling and redness in her leg than she did the other day when seen in my office. I think some of this is venous congestion and mirrors the area of her chronic venous stasis change. The leg is elevated and will be reassessed tomorrow. We discussed the pros and cons of different forms of treatment. I think that an amputation is really her only viable option. She has agreed to proceed and informed consent has been obtained. JOSE
--- NOTE | 2016-12-16 20:36 | Anesthesiology Progress Note ---
Pre-OP Anesthesia Assessment Date of Note Dec 16, 2016. Notes 71yo female scheduled for left BKA. PMH includes DM, HTN, CAD (2 vessel PTCA 2007), chronic atrial fibrillation, COPD, obesity. PT is also anemic with hgb 7.4g% on this admission. (PRBC transfusion is in progress.) Pt reports remote history of post-op resp failure which resulted in tracheostomy. She uses continuous O2 3 l/m nasal cannula. It is noted however, that when I met pt she was off O2 and SaO2 was 100%. Preoperative CXR was requested and is pending at this time. Pt is otherwise acceptable candidate for planned procedure. GA vs SAB described. She expressed understanding and signed informed consent. Would check post-transfusion HGB preoperatively.
[2016-12-16] MEDS: THEOPHYLLINE 300MG EXTENDED REL TAB PO SCH (21:48)
[2016-12-16] MEDS: GABAPENTIN 300 MG CAP PO SCH (21:48)
[2016-12-17] VITALS (9 sets, daily range): BP systolic 113–165; BP diastolic 55–77; PULSE 73–117; TEMP 36.8–37.3; O2SAT 95–100
[2016-12-17] MEDS: HYDROCODONE/ACETAMOPHEN 5/325MG TAB PO PRN (00:29)
[2016-12-17] MEDS ORDERED: NURSING VERBAL MED ORDER ONE ×2 (00:45→17:10)
--- NOTE | 2016-12-17 04:42 | Progress Note ---
Subjective Date of Service: Dec 16, 2016. Subjective Pt evaluation today including: conversation w/ patient, conversation w/ family (son by phone), physical exam, chart review, lab review, review of studies ( arterial doppler left leg), conversation w/ business development consultant (orthopedics), review of inpatient medication list Pain: left foot/leg; paresthesias (chronic) both feet PO Intake: fair Voiding: no voiding problems patient was just consented for left BKA tomorrow and was very distraught at the time of my assessment she denied any other complaints she was agreeable to PRBCs this afternoon in preparation for surgery she has had PRBCs in the past w/o difficulty denies overt bleeding from any location Problem List Medical Problems: (1) Atrial fibrillation Status: Acute (2) Bifascicular block Status: Acute (3) Cellulitis of both lower extremities Status: Acute (4) Cellulitis of foot, left Status: Acute (5) Cellulitis of left lower leg Status: Acute (6) CHF (congestive heart failure) Status: Acute (7) Constipation Status: Acute (8) Diabetic foot ulcer Status: Acute (9) Electrolyte abnormality Status: Acute (10) Hypokalemia Status: Acute (11) Leukocytosis Status: Acute (12) Sepsis Status: Acute (13) UTI (urinary tract infection) Status: Acute Review of Systems Constitutional: No chills, No fever Respiratory: No cough, No dyspnea at rest Cardiac: No chest pain, No orthopnea Abdomen: No pain Objective Vital Signs Date Time Temp Pulse Resp B/P Pulse Ox O2 Delivery O2 Flow Rate FiO2 12/16/16 20:38 37.2 76 20 137/66 97 3.0 12/16/16 19:20 37.5 76 18 127/68 99 2.0 12/16/16 18:50 37.6 75 18 129/69 99 3.0 12/16/16 18:20 37.6 75 20 127/62 100 12/16/16 18:05 37.6 75 20 150/64 100 3.0 12/16/16 17:51 37.3 75 20 131/66 100 12/16/16 16:08 37.5 82 18 126/56 97 Nasal Cannula 3.0 Humidified Oxygen 12/16/16 15:50 Nasal Cannula 3.0 Humidified Oxygen 12/16/16 08:52 74 12/16/16 08:31 100 Nasal Cannula 3.0 12/16/16 08:13 37.1 73 16 127/62 100 Nasal Cannula 3.0 12/16/16 08:04 37.1 73 16 127/62 100 Nasal Cannula 2.0 12/16/16 07:20 Nasal Cannula 3.0 Humidified Oxygen 12/16/16 00:10 Nasal Cannula 3.0 Humidified Oxygen 12/15/16 23:16 37.0 82 16 137/61 100 Nasal Cannula 3.0 Physical Exam General Appearance: no apparent distress ENT: pharynx normal Neck: + JVD Respiratory/Chest: lungs clear, no respiratory distress, no accessory muscle use, + decreased breath sounds (bases) Cardiovascular: regular rate, rhythm, no gallop, no murmur Abdomen: normal bowel sounds, non tender, soft, no organomegaly Extremities: + pedal edema (left foot) Neurologic/Psychiatric: alert, oriented x 3 Skin: + pertinent finding (diffuse erythema extending from just below the left knee down to the foot; the left foot & ankle are dressed in large dressings; the erythematous area is mildly tender to palpation) Comments: musculoskeletal - foot deformity noted on right vascular - pulses right foot 1+; unable to check pulses on left due to large dressing in place Laboratory Results Last 24 Hours Test 12/16/16 05:18 12/16/16 07:57 12/16/16 11:56 12/16/16 16:59 White Blood Count 4.91 K/uL Red Blood Count 2.55 M/uL Hemoglobin 7.4 g/dL Hematocrit 22.3 % Mean Corpuscular Volume 87.5 fL Mean Corpuscular Hemoglobin 29.0 pg Mean Corpuscular Hemoglobin Concent 33.2 g/dl Platelet Count 109 K/uL Mean Platelet Volume 8.3 fL Neutrophils (%) (Auto) 66.6 % Lymphocytes (%) (Auto) 11.0 % Monocytes (%) (Auto) 14.9 % Eosinophils (%) (Auto) 7.1 % Basophils (%) (Auto) 0.2 % Neutrophils # (Auto) 3.27 K/uL Lymphocytes # (Auto) 0.54 K/uL Monocytes # (Auto) 0.73 K/uL Eosinophils # (Auto) 0.35 K/uL Basophils # (Auto) 0.01 K/uL RDW Standard Deviation 64.8 fL RDW Coefficient of Variation 20.6 % Immature Granulocyte % (Auto) 0.2 % Immature Granulocyte # (Auto) 0.01 K/uL Sodium Level 136 mmol/L Potassium Level 4.3 mmol/L Chloride Level 100 mmol/L Carbon Dioxide Level 31 mmol/L Anion Gap 5.0 mmol/L Blood Urea Nitrogen 20 mg/dl Creatinine 1.30 mg/dl Est Creatinine Clear Calc Drug Dose 43.9 ml/min Estimated GFR () 47.5 Estimated GFR (Non- 41.0 BUN/Creatinine Ratio 15.1 Random Glucose 145 mg/dl Calcium Level 8.9 mg/dl Bedside Glucose 198 mg/dl 211 mg/dl 209 mg/dl Assessment and Plan 71yo female with: 1. left foot ulcer with associated LLE cellulitis and osteomyelitis of the foot - despite numerous courses of antibiotics, wound vacs, debridement by Dr. Wells, etc this region has failed to heal over a lengthy period of time. At this time we will continue IV antibiotic therapy but the definitive plan is for left BKA by Dr. Unger tomorrow. Appreciate ortho, ID, and wound care consultations. Pt has consented for left BKA tomorrow. 2. acute/chronic anemia - acute component 2nd to blood draws, etc. Tx 2 units PRBCs today with repeat CBC in am. 3. chronic resp failure 2nd to COPD - stable, on home O2 amount. 4. chronic diastolic CHF - compensated. 5. constipation - add bowel regimen. 6. T2DM - uncontrolled; adjust correction factor and goal range. 7. HTN - controlled on home meds. 8. CKD stage 3 - creatinine is stable and at baseline. 9. COPD - stable, not in exacerbation. Cont home inhalers. 10. hypothyroidism - no TSH in our EMR. Check such in AM. Cont synthroid in meantime. 11. CAD - no ischemic symptoms at this time. EKG pending. 12. h/o a. fib - continue digoxin, cardizem. Clinically seems to be in NSR but await EKG. 13. GERD - PPI. 14. DVT proph - holding chemical means due to upcoming surgery. 15. PAD - appreciate vascular eval. Has MILD PAD of the LEs but nothing in need of surgical intervention at this time. son updated by phone Continued [facility] stay due to: ambulation difficulties, multiple IV medications needed, other (left BKA) Discharge planning: uncertain
[2016-12-17] MEDS: LINEZOLID / D5W 600 MG in PREMIXED IN D5W 300 ML IV SCH ×2 (05:08→18:22)
[2016-12-17] MEDS ORDERED: VANCOMYCIN 1GM/270ML NSS IV ONE (06:00)
[2016-12-17 06:01] LABS: HEMATOCRIT 26.3 % (37-47); MEAN CELL VOLUME 85.9 fL (80-100); MEAN CORPUSCULAR HEMOGLOBIN 28.8 pg (25-34); MEAN CORPUSCULAR HGB CONC 33.5 g/dl (32-36); MEAN PLATELET VOLUME 8.8 fL (7.4-10.4); PLATELET COUNT 113 K/uL (130-400); RED BLOOD COUNT 3.06 M/uL (4.2-5.4); WHITE BLOOD COUNT 4.45 K/uL (4.8-10.8)
[2016-12-17 06:28] LABS: BUN/CREATININE RATIO 14.6 (10-20); CALCIUM 8.8 mg/dl (8.5-10.1); CREATININE 1.4 mg/dl (0.60-1.20); MAGNESIUM 2.2 mg/dl (1.8-2.4)
[2016-12-17] MEDS: INSULIN ASPART 100 UNITS/ML 3 ML PEN SC SCH ×4 (06:28→23:25)
[2016-12-17] MEDS: LEVOTHYROXINE SODIUM PO SCH ×2 (06:29)
[2016-12-17 06:39] LABS: THYROID STIMULATING HORMONE 0.727 uIu/ml (0.300-4.500)
--- NOTE | 2016-12-17 07:51 | DIAGNOSTIC IMAGING REPORT ---
SINGLE VIEW CHEST CLINICAL HISTORY: COPD. FINDINGS: An AP, portable, upright chest radiograph is compared to study dated to. The examination is degraded by portable technique and patient rotation. The heart is enlarged and there is atherosclerotic calcification of the thoracic aorta. There is mild pulmonary vascular congestion. Chronic interstitial thickening is unchanged. No airspace consolidation is seen typical for pneumonia. Trace pleural effusions are suspected. No pneumothorax is seen. The skeletal structures are osteopenic. The bony thorax is grossly intact. IMPRESSION: 1. Cardiomegaly with mild pulmonary vascular congestion. 2. Trace pleural effusions are suspected. Electronically signed by: Rahul Early M.D. 12/17/2016 7:49 AM Dictated Date/Time: 12/17/2016 7:48 AM
[2016-12-17] MEDS: LACTOBACILLUS ACIDOPHILUS (FLORANEX) TAB PO SCH ×3 (08:30→18:21)
[2016-12-17] MEDS: FERROUS GLUCONATE 324 MG TAB PO SCH (09:00)
[2016-12-17] MEDS: POTASSIUM CHLORIDE 20 MEQ TABCR PO SCH (09:00)
[2016-12-17] MEDS: PANTOprazole SOD 40 MG TAB PO SCH (09:00)
[2016-12-17] MEDS: MAGNESIUM OXIDE 400 MG TAB PO SCH ×2 (09:00→21:00)
[2016-12-17] MEDS: INSULIN GLARGINE SOLOSTAR 100 UNITS/ML 3 ML PEN SC SCH (09:00)
[2016-12-17] MEDS: POLYETHYLENE (MIRALAX) 17 GM PACK PO SCH ×2 (09:00→21:00)
[2016-12-17] MEDS: DILTIAZEM HCL 240 MG CAPCR PO SCH (09:00)
[2016-12-17] MEDS: FUROSEMIDE 20 MG TAB PO SCH (09:21)
[2016-12-17] MEDS: EUCERIN CR 120 GM JAR EXT SCH ×2 (09:21→22:05)
[2016-12-17] MEDS: MoRPHine SULFATE 4 MG/ML 1 ML CARP\\VIAL IV PRN (09:21)
[2016-12-17] MEDS: SPIRONOLACTONE 25 MG TAB PO SCH (09:22)
[2016-12-17] MEDS: FLUTICASONE/SALMETEROL 250/50 (ADVAIR) 14 PUFF/1 INHALER INH SCH ×2 (09:22→21:00)
[2016-12-17] MEDS: TIOTROPIUM BROMIDE 5 PUFF/90 MCG INH INH SCH (09:23)
[2016-12-17] MEDS ORDERED: INSULIN GLARGINE SOLOSTAR 100 UNITS/ML 3 ML PEN SC ONE (10:00)
[2016-12-17] MEDS ORDERED: DILTIAZEM HCL 120 MG CAPCR PO ONE (10:00)
[2016-12-17] MEDS: DIGOXIN 0.125 MG TAB PO SCH (10:05)
[2016-12-17] MEDS ORDERED: ROPIVACAINE 0.5% 5 MG/ML 30 ML VIAL ONE (10:34)
[2016-12-17] MEDS ORDERED: CEFAZOLIN IV 2,000 MG/60 ML D5W IV ONE (11:00)
[2016-12-17] MEDS ORDERED: DEXAMETHASONE SOD INJ 4 MG/ML VIAL ONE (11:44)
[2016-12-17] MEDS ORDERED: FENTANYL CITRATE INJ 50 MCG/1 ML 2 ML VIAL ONE (11:44)
[2016-12-17] MEDS ORDERED: PROPOFOL IV EMULSION 10 MG/ML 20 ML VIAL IV ONE (11:44)
[2016-12-17] MEDS ORDERED: ONDANSETRON INJ 2 MG/ML 2 ML VIAL ONE (11:44)
[2016-12-17] MEDS ORDERED: ROCURONIUM BROMIDE 10 MG/ML 5 ML VIAL ONE (11:44)
[2016-12-17] MEDS ORDERED: LIDOCAINE HCL 2% 2 ML VIAL (20MG/ML) ONE (11:44)
[2016-12-17] MEDS ORDERED: MIDAZOLAM HCL 1 MG/ML 2ML VIAL ONE (11:44)
--- NOTE | 2016-12-17 13:31 | History & Physical Bridge Note ---
H&P Re-Evaluation Bridge Note: I have examined the patient, reviewed the History & Physical and in the interval since the performance of the History & Physical I have noted the following changes of clinical significance: No changes noted
[2016-12-17] MEDS ORDERED: EpHEDrine SULFATE INJ 50 MG/ML AMP IV PRN (14:45)
[2016-12-17] MEDS ORDERED: ATROPINE SULFATE 0.1 MG/ML 5ML SYR IV PRN (14:45)
[2016-12-17] MEDS ORDERED: ONDANSETRON INJ 2 MG/ML 2 ML VIAL IV PRN ×2 (14:45→17:00)
[2016-12-17] MEDS ORDERED: PHENYLEPHRINE 100MCG/ML 5ML SYR IV PRN (14:45)
[2016-12-17] MEDS ORDERED: GLYCOPYRROLATE INJ 0.2 MG/ML VIAL ONE (15:28)
[2016-12-17] MEDS ORDERED: NEOSTIGMINE METHYLSULFATE 5 MG/5 ML SYR ONE (15:28)
--- NOTE | 2016-12-17 16:34 | [facility] Post Operative Brief Note ---
Immediate Operative Summary Operative Date Dec 17, 2016. Pre-Operative Diagnosis Left foot chronic osteomyelitis, charcot arthropathy Post-Operative Diagnosis same Procedure(s) Performed Below knee amputation- Left leg Surgeon Dr Unger Angiography Nurse Surgeon(s) Dominga BUSTOS Estimated Blood Loss 200 Findings open draining wound left foot Specimens A. Left leg-Below the knee amputation Drains 1 Anesthesia general Complication(s) None Disposition PCU
[2016-12-17 16:35] LABS: HEMATOCRIT 24.5 % (37-47)
[2016-12-17] MEDS: HYDROmorphone INJ 2 MG/ML SYR/VIAL IV PRN ×6 (17:05→17:32)
--- NOTE | 2016-12-17 17:10 | [facility] Operative Report ---
Operative Report Operative Date Dec 17, 2016. Pre-Operative Diagnosis Left foot chronic osteomyelitis, charcot arthropathy Post-Operative Diagnosis Left foot chronic osteomyelitis; charcot arthropathy Procedure(s) Performed Below knee amputation left lower extremity Surgeon Dr Unger [employer] [employer] Surgeon(s) Dominga BUSTOS Estimated Blood Loss 200ML Findings Osteomyelitis left foot Specimens A. Left leg-Below the knee amputation Drains 1 Anesthesia general Complication(s) None Disposition Recovery Room / PACU (stable) Indications Patient is a 71 year old female with left foot charcot arthropathy, diabetic foot ulcer, osteomyelitis. X-rays/CT scan, cultures obtained, amputation recommended for definitive treatment. Risks/complications discussed, informed consent obtained. Description of Procedure Patient was taken to the operating room, placed under general anesthesia, given IV Ancef for surgical prophylaxis. Time out performed, prepped and draped in routine sterile fashion. I was present the entire case, please see Dr. Unger's operative report for further detail. Patient was awakened and taken to the recovery room in stable condition. I attest to the content of the Intraoperative Record and any orders documented therein. Any exceptions are noted below.
[2016-12-17] MEDS ORDERED: LORAZEPAM 2 MG/ML 1 ML VIAL ONE (17:21)
[2016-12-17] MEDS ORDERED: HYDROmorphone INJ 1 MG/ML SYR ONE (17:31)
--- NOTE | 2016-12-17 17:44 | DIAGNOSTIC IMAGING REPORT ---
LEFT KNEE 2 VIEWS HISTORY: Postop. S/p Left below knee amputation; entire amputation site distally COMPARISON: Left lower leg 12/11/2016. FINDINGS: The patient is status post a below the knee amputation. There are surgical drains at the resection site. Otherwise, no radiopaque foreign bodies. Mild to moderate osteoarthritis within the left knee. No fracture or dislocation. IMPRESSION: Status post below the knee amputation. Surgical drains are in place. Electronically signed by: Alexander Herman M.D. 12/17/2016 5:42 PM Dictated Date/Time: 12/17/2016 5:40 PM
--- NOTE | 2016-12-17 17:46 | OPERATIVE REPORT ---
DATE OF OPERATION: 12/17/2016 PREOPERATIVE DIAGNOSES: Left foot chronic osteomyelitis involving the mid foot and hindfoot with Charcot arthropathy of the ankle joint. POSTOPERATIVE DIAGNOSES: Same. PROCEDURE: Left below knee amputation. SURGEON: Dr. Kota Unger. DIGITAL HARDWARE DESIGN ENGINEER: Dominga George. SECOND DIGITAL HARDWARE DESIGN ENGINEER: Jaimie Trivedi, third year [employer] medical student. ANESTHESIA: General. INDICATIONS OF PROCEDURE: The patient is a 71-year-old female previously treated in the wound clinic for left foot deformity consistent with Charcot arthropathy. She has developed an open draining wound several months ago, which was treated with a multi-model therapy including a wound VAC and antibiotics, but persisted and draining. She has Charcot deformity of her ankle with loss of longitudinal arch of the foot and abduction of the forefoot. She has an open sinus medial mid foot. Radiograph and CT scan showed destructive changes of the mid and hindfoot consistent with Charcot arthropathy and likely chronic osteomyelitis of multiple bones. This is not a reconstructable situation. There appears to be involvement of the tibiotalar joint. Treatment options, risks and benefits were discussed and I have recommended a below knee amputation. The patient reluctantly has agreed to proceed. We discussed the possibility of the need for amputation at a higher level. We also discussed with her that if it left untreated, this could result in a systemic infection that could adversely affect her health. PROCEDURE IN DETAIL: Informed consent was obtained. The patient identified as Valery Gloria. She identified the operative site as the left leg. I marked the leg with my initials. A preop surgical timeout was performed. A preop dose of IV antibiotics was given. She was taken to the operating room and positioned supine on the operating room table. A general anesthetic was administered. Tourniquet applied to the left thigh. The left leg was prescrubbed with chlorhexidine and then double prepped with ChloraPrep down to the ankle. The foot and open wound were excluded from the surgical field with an occlusive stockinette. DVT prophylaxis postoperatively will be done with Lovenox. She received a preop dose of IV antibiotics. She is on chronic IV therapy. Consultation with infectious diseases, medicine and vascular surgery were performed. Vascular surgery found adequate arterial flow to support healing of a below knee amputation. A bump was placed under the left hip. The patient has a Charcot ankle on the contralateral side without open wound or evidence of infection. The limb was exsanguinated with gravity and tourniquet inflated to 250 mmHg and later inflated to 300 mmHg. The medial joint line was identified and a dana on the skin was made 13 cm distal to that. The diameter of the leg was approximately 14 cm at the level of amputation. Anterior and posterior skin flaps were then created in a fish-mouth fashion, measuring 8 cm in length. She had chronic venous stasis changes of the lower extremity. There was some very mild erythema and edema as well as chronic thickening and dermal changes consistent with chronic venous stasis. This was much more severe with scaly changes of the skin, located more distally and because of that, I felt that a longer posterior flap would be better to avoid and therefore, chose the fish-mouth flap. Additionally, she has palpable pedal pulses and good arterial flow and so, she should have good inflow to the anterior skin flap. Skin was sharply incised along the line of the incision in a full thickness fashion. Anteriorly, this was carried down to the crest of the tibia and the anterior and lateral compartment fascia were incised and this was dissected in a subfascial and subperiosteal fashion proximally. This was dissected proximally to the point, where the 13 cm distal to the joint line was remeasured and marked on the bone. We then divided the anterior compartment musculature using a Bovie about a centimeter distal to the anticipated level of the tibial amputation. The anterior tibial artery and vein were ligated. Neural structures were encountered and were pulled distally, resected with the cautery and allowed to retract proximally. The greater and lesser saphenous veins were ligated with 2-0 silk ties. Larger structures were double or triple ligated as necessary. The lateral compartment musculature was then divided in a likewise fashion. The posterior tib muscle was identified and also released in a likewise fashion. The tibia was transected with the oscillating saw at the aforementioned dana and beveled anterior, medial and lateral and smoothed with the saw. The fibula was amputated about 1.5 cm proximal to this level in a transverse fashion. The posterior compartment musculature was dissected out. The posterior tibial artery and vein were dissected out, double ligated and transected at the level of the tibia. The tibial nerve was transected as well. The peroneal vessels were also ligated and transected. The posterior compartment muscles were then folded up anterior and enough length was left to perform a myoplasty. The limb was then amputated through the posterior compartment musculature and passed off the field. Tourniquet was then let down after 60 minutes of inflation. Copious irrigation was performed. The muscle was salmon colored even at the beginning of the operation and not typical bright red beefy tissue. Bleeding was controlled where appropriate with religation of vessels with 2-0 silk ties, 2-0 Vicryl pursestring stitches, electrocautery or direct pressure. The posterior muscle flap was too bulky. Distally, this was resected and the gastrocnemius provided adequate coverage. The gastrocnemius was trimmed to fit and then, a myoplasty procedure was performed by folding the gastrocnemius anteriorly and using #1 Vicryl sutures to sew it down to the anterior lateral compartment fascia. This provided good covering. Bleeding was well controlled. A drain was inserted deep, brought out lateral, a large Hemovac. Then, the skin was closed using 0 Vicryl stitches and then on the epidermal layer, 3 large [id number] stitches were applied as tension stitches. Then, 2-0 nylon sutures were applied in between in a likewise or simple fashion to close the skin in a tension free fashion. Leg was cleaned with wet and dry sponges. A well-padded soft sterile dressing was applied over the stump and above the knee to the thigh. The patient awakened from anesthesia without difficulty and taken to recovery room in stable condition. The resected leg was sent for specimen. There were no complications. Counts were correct at the end of case. Blood loss was estimated to be 200 mL. After the amputation, there was a fair amount of punctate bleeding from the muscle even though it did not look like normal healthy muscle. At the conclusion of the procedure, there was no one available to speak to. She will be a plan transfer to the PCU due to her multiple medical problems including diabetes, atrial fibrillation, lung and kidney disease. I attest to the content of the Intraoperative Record and any orders documented therein. Any exceptio ns are noted below.
[2016-12-17] MEDS ORDERED: [UNRECOGNIZED DRUG - REMARK] SCH (18:05)
--- NOTE | 2016-12-17 18:05 | Anesthesiology Progress Note ---
Anesthesia Post Op Note Date & Time Dec 17, 2016 at 18:05 Vital Signs Pain Intensity: 4 Vital Signs Past 12 Hours Date Time Temp Pulse Resp B/P Pulse Ox O2 Delivery O2 Flow Rate FiO2 12/17/16 17:56 37.5 12/17/16 17:50 156/56 12/17/16 17:47 86 19 12/17/16 17:47 81 19 98 12/17/16 17:45 163/60 12/17/16 17:42 85 18 99 12/17/16 17:42 87 18 12/17/16 17:41 83 19 98 12/17/16 17:41 78 19 12/17/16 17:40 163/61 12/17/16 17:36 81 20 98 12/17/16 17:36 83 20 12/17/16 17:35 149/70 12/17/16 17:31 85 17 98 12/17/16 17:31 88 17 12/17/16 17:30 165/63 12/17/16 17:26 80 18 12/17/16 17:26 83 18 98 12/17/16 17:25 168/66 12/17/16 17:21 80 20 12/17/16 17:21 81 20 98 12/17/16 17:20 167/57 12/17/16 17:18 95 20 98 12/17/16 17:18 82 20 12/17/16 17:15 174/64 12/17/16 17:13 86 18 12/17/16 17:13 86 18 98 12/17/16 17:11 172/65 12/17/16 17:08 86 23 98 12/17/16 17:08 82 23 12/17/16 17:05 171/76 12/17/16 17:03 82 19 12/17/16 17:03 88 19 96 12/17/16 17:00 170/68 12/17/16 16:58 36.4 86 16 163/79 98 Nasal Cannula 4 12/17/16 16:58 80 30 163/79 99 12/17/16 16:58 82 30 12/17/16 10:05 76 12/17/16 08:05 Room Air 12/17/16 07:11 36.9 73 17 128/62 100 Nasal Cannula 2.0 Notes Mental Status: alert / awake / arousable, participated in evaluation Pt Amnestic to Procedure: Yes Nausea / Vomiting: adequately controlled Pain: adequately controlled Airway Patency, RR, SpO2: stable & adequate BP & HR: stable & adequate Hydration State: stable & adequate Anesthetic Complications: no major complications apparent
[2016-12-17] MEDS ORDERED: LORAZEPAM INJ 0.5 MG in SYRINGE 0.75 ML IV ONE (18:30)
--- NOTE | 2016-12-17 18:50 | Pharmacy Progress Note ---
Enoxaparin Dosing Consult Date of Service: Dec 17, 2016. Pharmacy Dosing Scope Pharmacy is consulted to review the use of enoxaparin in a special risk patient population possibly prone to accumulate drug: renal impairment AND Obesity & to initiate/continue/recommend change in the setting of ordered PROPHYLACTIC enoxaparin sub-q dosing therapy, order appropriate labs and adjust drug/dose/ frequency. Subjective The patient is a 71 year old female admitted on Dec 13, 2016 at 18:15 for Osteomyelitis Of Left Foot. Patient is to receive prophylactic Lovenox starting POD 1, 12/18/16 Pertinent PMH: DM, HTN, HCT<30, RENAL Dx, PAD, CAD Objective Height (Feet): 5 Height (Inches): 3.00 Weight (Kilograms): 99.250 BMI (kg/m2): 38.8 Laboratory Results: Last 24 Hours Test 12/17/16 05:20 12/17/16 16:23 Blood Urea Nitrogen 20 mg/dl (7-18) Creatinine 1.40 mg/dl (0.60-1.20) Hematocrit 26.3 % (37-47) 24.5 % (37-47) Hemoglobin 8.8 g/dL (12.0-16.0) 8.6 g/dL (12.0-16.0) Platelet Count 113 K/uL (130-400) Last 72 Hours Test 12/15/16 06:55 12/16/16 05:18 12/17/16 05:20 Platelet Count 99 K/uL 109 K/uL 113 K/uL White Blood Count 4.91 K/uL Red Blood Count 2.55 M/uL Hemoglobin 7.4 g/dL Hematocrit 22.3 % Mean Corpuscular Volume 87.5 fL Mean Corpuscular Hemoglobin 29.0 pg Mean Corpuscular Hemoglobin Concent 33.2 g/dl Mean Platelet Volume 8.3 fL Neutrophils (%) (Auto) 66.6 % Lymphocytes (%) (Auto) 11.0 % Monocytes (%) (Auto) 14.9 % Eosinophils (%) (Auto) 7.1 % Basophils (%) (Auto) 0.2 % Neutrophils # (Auto) 3.27 K/uL Lymphocytes # (Auto) 0.54 K/uL Monocytes # (Auto) 0.73 K/uL Eosinophils # (Auto) 0.35 K/uL Basophils # (Auto) 0.01 K/uL Recent Anticoagulant Meds NONE Assessment & Plan Regarding PROPHYLACTIC Enoxaparin: Start enoxaparin 40 mg sub-q every 24 hours based on review of the following special population risk factors for drug accumulation: renal impairment and obesity or estimated creatinine clearance of 41 mL/min. Labs: May consider ordering Xa lvl if pt is to be on LMWH for an extended period. We will continue to monitor this patient and make adjustments as needed. Thank you.
[2016-12-17] MEDS ORDERED: HYDROmorphone INJ 0.5 MG/0.5 ML SYR ONE (19:24)
[2016-12-17] MEDS ORDERED: HYDROmorphone HCL 0.5MG/ML 50 ML CASSETTE IV PRN (19:45)
[2016-12-17] MEDS ORDERED: NALOXONE HCL 0.4 MG/1 ML VIAL/CARP IV PRN (19:45)
[2016-12-17] MEDS: THEOPHYLLINE 300MG EXTENDED REL TAB PO SCH (21:00)
[2016-12-17] MEDS: GABAPENTIN 300 MG CAP PO SCH (21:00)
[2016-12-17] MEDS: SODIUM CHLORIDE 0.9% 1000ML 1,000 ML IV SCH (22:05)
--- NOTE | 2016-12-17 22:29 | Progress Note ---
Subjective Date of Service: Dec 17, 2016. Subjective Pt evaluation today including: conversation w/ patient, conversation w/ family (son by phone), physical exam, chart review, lab review, review of inpatient medication list Pain: SEVERE, 06/17 - following her surgery PO Intake: did not eat following surgery I saw the patient after she was transferred to telemetry following her amputation. She had SEVERE pain in the left leg. She was crying during my visit - "I have never had such bad pain in my life!" She had 3mg of IV dilaudid in the PACU and despite such was not comfortable. When asked about chronic narcotic use she states she had been taking hydrocodone for about 2 years; at least 2 tabs/day. Denied any sob, orthopnea, chest pain, abd pain. Problem List Medical Problems: (1) Atrial fibrillation Status: Acute (2) Bifascicular block Status: Acute (3) Cellulitis of both lower extremities Status: Acute (4) Cellulitis of foot, left Status: Acute (5) Cellulitis of left lower leg Status: Acute (6) CHF (congestive heart failure) Status: Acute (7) Constipation Status: Acute (8) Diabetic foot ulcer Status: Acute (9) Electrolyte abnormality Status: Acute (10) Hypokalemia Status: Acute (11) Leukocytosis Status: Acute (12) Sepsis Status: Acute (13) UTI (urinary tract infection) Status: Acute Review of Systems Constitutional: No fever Respiratory: No shortness of breath Cardiac: No chest pain, No orthopnea Abdomen: No pain Musculoskeletal: + see HPI Objective Vital Signs Date Time Temp Pulse Resp B/P Pulse Ox O2 Delivery O2 Flow Rate FiO2 12/17/16 20:15 37.0 86 18 165/63 99 Nasal Cannula 3.0 12/17/16 20:00 Room Air 12/17/16 19:57 36.8 117 18 116/75 95 Room Air 12/17/16 18:06 81 20 12/17/16 18:06 80 20 98 12/17/16 18:05 165/55 12/17/16 18:01 81 18 99 12/17/16 18:01 82 18 12/17/16 18:00 150/58 12/17/16 17:56 80 18 12/17/16 17:56 81 18 98 12/17/16 17:56 37.5 12/17/16 17:55 153/59 12/17/16 17:51 79 17 12/17/16 17:51 78 17 97 12/17/16 17:50 156/56 12/17/16 17:47 86 19 12/17/16 17:47 81 19 98 12/17/16 17:45 163/60 12/17/16 17:42 85 18 99 12/17/16 17:42 87 18 12/17/16 17:41 83 19 98 12/17/16 17:41 78 19 12/17/16 17:40 163/61 12/17/16 17:36 81 20 98 12/17/16 17:36 83 20 12/17/16 17:35 149/70 12/17/16 17:31 85 17 98 12/17/16 17:31 88 17 12/17/16 17:30 165/63 12/17/16 17:26 80 18 12/17/16 17:26 83 18 98 12/17/16 17:25 168/66 12/17/16 17:21 80 20 12/17/16 17:21 81 20 98 12/17/16 17:20 167/57 12/17/16 17:18 95 20 98 12/17/16 17:18 82 20 12/17/16 17:15 174/64 12/17/16 17:13 86 18 12/17/16 17:13 86 18 98 12/17/16 17:11 172/65 12/17/16 17:08 86 23 98 12/17/16 17:08 82 23 12/17/16 17:05 171/76 12/17/16 17:03 82 19 12/17/16 17:03 88 19 96 12/17/16 17:00 170/68 12/17/16 16:58 36.4 86 16 163/79 98 Nasal Cannula 4 12/17/16 16:58 80 30 163/79 99 12/17/16 16:58 82 30 12/17/16 10:05 76 12/17/16 08:05 Room Air 12/17/16 07:11 36.9 73 17 128/62 100 Nasal Cannula 2.0 12/17/16 00:50 Nasal Cannula 3.0 Humidified Oxygen 12/16/16 23:15 37.2 70 18 128/64 91 3.0 Physical Exam General Appearance: + severe distress (due to pain) ENT: pharynx normal Neck: no JVD Respiratory/Chest: no respiratory distress, no accessory muscle use, + decreased breath sounds (bases) Cardiovascular: no gallop, + irregularly irregular Abdomen: normal bowel sounds, non tender, soft, no organomegaly, + hernia ( multiple, reducible ) Extremities: + pertinent finding (left BKA with dressings and drain in place) Neurologic/Psychiatric: alert, oriented x 3 Comments: musculo - foot deformity on right, pulses right foot 1+ Laboratory Results Last 24 Hours Test 12/17/16 05:20 12/17/16 05:57 12/17/16 16:23 12/17/16 17:00 White Blood Count 4.45 K/uL Red Blood Count 3.06 M/uL Hemoglobin 8.8 g/dL 8.6 g/dL Hematocrit 26.3 % 24.5 % Mean Corpuscular Volume 85.9 fL Mean Corpuscular Hemoglobin 28.8 pg Mean Corpuscular Hemoglobin Concent 33.5 g/dl RDW Standard Deviation 59.1 fL RDW Coefficient of Variation 19.5 % Platelet Count 113 K/uL Mean Platelet Volume 8.8 fL Sodium Level 135 mmol/L Potassium Level 4.0 mmol/L Chloride Level 98 mmol/L Carbon Dioxide Level 30 mmol/L Anion Gap 7.0 mmol/L Blood Urea Nitrogen 20 mg/dl Creatinine 1.40 mg/dl Est Creatinine Clear Calc Drug Dose 40.8 ml/min Estimated GFR () 43.4 Estimated GFR (Non- 37.4 BUN/Creatinine Ratio 14.6 Random Glucose 149 mg/dl Calcium Level 8.8 mg/dl Magnesium Level 2.2 mg/dl Thyroid Stimulating Hormone (TSH) 0.727 uIu/ml Bedside Glucose 173 mg/dl 181 mg/dl Test 12/17/16 18:23 12/17/16 20:38 Bedside Glucose 187 mg/dl 183 mg/dl Assessment and Plan 71yo female with: 1. left foot ulcer with associated LLE cellulitis and osteomyelitis of the foot - s/p left BKA today. She will remain on IV/PO abx for at least 1 week according to ID. Significant pain post-op - see below. 2. acute/chronic anemia - acute component 2nd to blood draws, etc. s/p 2 units PRBCs yesterday with stable H/H today. Post-op her H/H were rechecked and were satisfactory. Repeat CBC am. 3. chronic resp failure 2nd to COPD - stable, on home O2 amount. 4. chronic diastolic CHF - compensated. 5. constipation - cont bowel regimen. 6. T2DM - improved control with insulin adjustments yesterday. 7. HTN - controlled on home meds. 8. CKD stage 3 - creatinine is stable and at baseline. 9. COPD - stable, not in exacerbation. Cont home inhalers. 10. hypothyroidism - TSH compensated; cont synthroid at current dose. 11. CAD - no ischemic symptoms at this time. 12. a. fib - continue digoxin, cardizem. 13. GERD - PPI. 14. DVT proph - start chemical means in AM if ok with orthopedics. 15. PAD - appreciate vascular eval. Has MILD PAD of the LEs but nothing in need of surgical intervention at this time. 16. pain control - suspect significant narcotic tolerance given long-standing narcotic usage. Will institute [employer] dilaudid tonight; start 0.25mg demand dose with q20 minute lock-out. Adjust as needed. Stop IV morphine. son updated by phone tonight Continued [facility] stay due to: ambulation difficulties, multiple IV medications needed, other (left BKA) Discharge planning: uncertain
[2016-12-17] MEDS ORDERED: HYDROmorphone INJ 0.5 MG/0.5 ML SYR IV STA (23:38)
[2016-12-18] VITALS (10 sets, daily range): BP systolic 132–166; BP diastolic 62–68; PULSE 87–99; TEMP 37–39.4; O2SAT 95–98
[2016-12-18] MEDS: HYDROCODONE/ACETAMOPHEN 5/325MG TAB PO PRN ×2 (01:03→07:36)
[2016-12-18] MEDS ORDERED: HYDROmorphone INJ 0.5 MG/0.5 ML SYR IV STA (03:27)
[2016-12-18] MEDS ORDERED: HYDROmorphone INJ 0.5 MG/0.5 ML SYR ONE (03:53)
[2016-12-18] MEDS: LINEZOLID / D5W 600 MG in PREMIXED IN D5W 300 ML IV SCH (04:55)
[2016-12-18] MEDS ORDERED: NURSING VERBAL MED ORDER ONE (05:15)
[2016-12-18] MEDS: LEVOTHYROXINE SODIUM PO SCH ×2 (05:45)
[2016-12-18] MEDS: LACTOBACILLUS ACIDOPHILUS (FLORANEX) TAB PO SCH ×3 (07:34→16:45)
[2016-12-18] MEDS: INSULIN ASPART 100 UNITS/ML 3 ML PEN SC SCH ×4 (07:44→21:01)
[2016-12-18 08:07] LABS: HEMATOCRIT 24.9 % (37-47); MEAN CORPUSCULAR HGB CONC 34.1 g/dl (32-36); PLATELET COUNT 109 K/uL (130-400); RED BLOOD COUNT 2.93 M/uL (4.2-5.4); WHITE BLOOD COUNT 6.59 K/uL (4.8-10.8)
[2016-12-18 08:29] LABS: BUN/CREATININE RATIO 14.4 (10-20); CALCIUM 8.1 mg/dl (8.5-10.1); CREATININE 1.2 mg/dl (0.60-1.20); POTASSIUM 4.1 mmol/L (3.5-5.1)
--- NOTE | 2016-12-18 08:45 | Anesthesiology Progress Note ---
Anesthesia Post Op Note Date & Time Dec 18, 2016 at 08:43 Vital Signs Vital Signs Past 12 Hours Date Time Temp Pulse Resp B/P Pulse Ox O2 Delivery O2 Flow Rate FiO2 12/18/16 07:06 38.7 98 20 153/63 96 Nasal Cannula 3.0 12/18/16 04:00 97 Nasal Cannula 3.0 12/18/16 03:50 37.0 87 20 132/62 98 Nasal Cannula 3.0 12/18/16 00:00 97 Nasal Cannula 3.0 12/17/16 23:57 37.3 83 20 142/69 97 Nasal Cannula 3.0 12/17/16 22:36 81 18 113/77 95 Nasal Cannula 3.0 12/17/16 21:30 94 18 148/72 95 Nasal Cannula 3.0 Notes Mental Status: alert / awake / arousable, participated in evaluation Pt Amnestic to Procedure: Yes Nausea / Vomiting: adequately controlled Pain: adequately controlled Airway Patency, RR, SpO2: stable & adequate BP & HR: stable & adequate Hydration State: stable & adequate Neuraxial Anesthesia: sensory block resolved Anesthetic Complications: no major complications apparent
--- NOTE | 2016-12-18 08:48 | Orthopedic Progress Note ---
Orthopedic Progress Note Date of Service Dec 18, 2016. Subjective Post OP Day: 1 Denies: SOB, chest pain, light headedness, nausea / vomiting Additional Notes: Patient states that "she's never had this much excruciating pain in all her life ". She has CONNIE SCRATCHER ordered, nursing states that she isn't using well on her own. She is oriented appropriately. Objective dressing C/D/I, hemovac drainage (functioning, drainage 75ml last over night) left leg elevated on a pillow, ice on limb. She falls asleep while I'm talking to her but wakes up suddenly and moans. Date Time Temp Pulse Resp B/P Pulse Ox O2 Delivery O2 Flow Rate FiO2 12/18/16 07:06 38.7 98 20 153/63 96 Nasal Cannula 3.0 12/18/16 04:00 97 Nasal Cannula 3.0 12/18/16 03:50 37.0 87 20 132/62 98 Nasal Cannula 3.0 12/18/16 00:00 97 Nasal Cannula 3.0 12/17/16 23:57 37.3 83 20 142/69 97 Nasal Cannula 3.0 12/17/16 22:36 81 18 113/77 95 Nasal Cannula 3.0 12/17/16 21:30 94 18 148/72 95 Nasal Cannula 3.0 12/17/16 20:30 37.0 79 18 147/72 95 Nasal Cannula 3.0 12/17/16 20:15 37.0 86 18 165/63 99 Nasal Cannula 3.0 12/17/16 20:00 97 Nasal Cannula 3.0 12/17/16 20:00 Room Air 12/17/16 19:57 36.8 117 18 116/75 95 Room Air 12/17/16 18:30 37.0 81 18 165/55 97 Nasal Cannula 3.0 Humidified Oxygen 12/17/16 18:06 81 20 12/17/16 18:06 80 20 98 12/17/16 18:05 165/55 12/17/16 18:01 81 18 99 12/17/16 18:01 82 18 12/17/16 18:00 150/58 12/17/16 17:56 80 18 12/17/16 17:56 81 18 98 12/17/16 17:56 37.5 12/17/16 17:55 153/59 12/17/16 17:51 79 17 12/17/16 17:51 78 17 97 12/17/16 17:50 156/56 12/17/16 17:47 86 19 12/17/16 17:47 81 19 98 12/17/16 17:45 163/60 12/17/16 17:42 85 18 99 12/17/16 17:42 87 18 12/17/16 17:41 83 19 98 12/17/16 17:41 78 19 12/17/16 17:40 163/61 12/17/16 17:36 81 20 98 12/17/16 17:36 83 20 12/17/16 17:35 149/70 12/17/16 17:31 85 17 98 12/17/16 17:31 88 17 12/17/16 17:30 165/63 12/17/16 17:26 80 18 12/17/16 17:26 83 18 98 12/17/16 17:25 168/66 12/17/16 17:21 80 20 12/17/16 17:21 81 20 98 12/17/16 17:20 167/57 12/17/16 17:18 95 20 98 12/17/16 17:18 82 20 12/17/16 17:15 174/64 12/17/16 17:13 86 18 12/17/16 17:13 86 18 98 12/17/16 17:11 172/65 12/17/16 17:08 86 23 98 12/17/16 17:08 82 23 12/17/16 17:05 171/76 12/17/16 17:03 82 19 12/17/16 17:03 88 19 96 12/17/16 17:00 170/68 12/17/16 16:58 36.4 86 16 163/79 98 Nasal Cannula 4 12/17/16 16:58 80 30 163/79 99 12/17/16 16:58 82 30 12/17/16 10:05 76 Laboratory Results 24 Hours: Test 12/17/16 16:23 12/18/16 07:50 Hematocrit 24.5 % 24.9 % Hemoglobin 8.6 g/dL 8.5 g/dL Assessment & Plan Assessment: Left foot chronic osteomyelitis, diabetic foot ulcer, charcot arthropathy POD 1 left lower extremity below knee amputation Plan: OOB to chair today. Continue hemovac, will recheck drainage later today Ice to left lower extremity stump Elevate left lower extremity Pain management as per medicine. Regular Diabetic diet as ordered Will continue to follow. Will discuss findings with Dr. Ute Magallanes to start this morning for DVT prophylaxis. Discharge Planning Discharge Planning: group home facility
[2016-12-18] MEDS: POTASSIUM CHLORIDE 20 MEQ TABCR PO SCH ×2 (09:00→09:43)
[2016-12-18] MEDS: ENOXAPARIN 40 MG/0.4 ML SYR SQ SCH (09:00)
[2016-12-18] MEDS: PANTOprazole SOD 40 MG TAB PO SCH ×2 (09:00→09:43)
[2016-12-18] MEDS: EUCERIN CR 120 GM JAR EXT SCH ×2 (09:00→20:58)
[2016-12-18] MEDS: FERROUS GLUCONATE 324 MG TAB PO SCH ×2 (09:00→09:43)
[2016-12-18] MEDS: MAGNESIUM OXIDE 400 MG TAB PO SCH ×2 (09:43→09:59)
[2016-12-18] MEDS: GABAPENTIN 300 MG CAP PO SCH ×2 (09:44→20:58)
[2016-12-18] MEDS: DIGOXIN 0.125 MG TAB PO SCH (09:45)
[2016-12-18] MEDS: POLYETHYLENE (MIRALAX) 17 GM PACK PO SCH ×3 (09:46→21:00)
[2016-12-18] MEDS: TIOTROPIUM BROMIDE 5 PUFF/90 MCG INH INH SCH (09:46)
[2016-12-18] MEDS: FLUTICASONE/SALMETEROL 250/50 (ADVAIR) 14 PUFF/1 INHALER INH SCH ×2 (09:46→20:59)
[2016-12-18] MEDS: FUROSEMIDE 20 MG TAB PO SCH (09:47)
[2016-12-18] MEDS: SPIRONOLACTONE 25 MG TAB PO SCH (09:47)
[2016-12-18] MEDS ORDERED: BISACODYL 10 MG SUPP PR STA (11:16)
[2016-12-18] MEDS ORDERED: SODIUM CHLORIDE 0.9% 500ML 500 ML IV SCH (11:30)
[2016-12-18 12:07] LABS: VEN BLD GAS O2 SATURATION 78.3 %
--- NOTE | 2016-12-18 12:17 | Hospitalist Progress Note ---
Hospitalist Progress Note Date of Service Dec 18, 2016. (Mago Matias ., QUINTONC) Subjective Pt evaluation today including: conversation w/ patient, physical exam, chart review, lab review, review of inpatient medication list Pain: 10/10 sharp pain in LLE PO Intake: Poor Voiding: pratt catheter in place Patient complains of severe 10 out of 10 sharp pain in her left lower extremity. Patient repeatedly states that "this is the worst pain of my life." She denies any other complaints, although it is difficult to have a conversation with her due to her distress. Per nursing, the patient has not really been using her Dilaudid HRIS ADMINISTRATOR pump. The patient does not seem to understand the concept of pressing the button to receive medication. This was explained to her several times, and she verbalized understanding. The patient has also been intermittently febrile with Tmax of 38.7C. Currently afebrile. Patient reports poor appetite due to pain. Pratt catheter is in place. The patient denies chills, sweats, chest pain, palpitations, claudication, cough, wheezing, shortness of breath, nausea, vomiting, abdominal pain, dysuria, hematuria, urinary retention, paralysis, weakness, numbness and tingling. Additional Comments: See HPI for pertinent positives and negatives. All other systems reviewed and negative. (Mago Matias ., JULI-C) Objective Vital Signs Date Time Temp Pulse Resp B/P Pulse Ox O2 Delivery O2 Flow Rate FiO2 12/18/16 11:10 37.2 93 24 152/64 96 12/18/16 10:25 37.7 12/18/16 09:45 90 12/18/16 08:47 37.2 95 24 158/62 96 12/18/16 08:00 Nasal Cannula 3.0 12/18/16 07:06 38.7 98 20 153/63 96 Nasal Cannula 3.0 12/18/16 04:00 97 Nasal Cannula 3.0 12/18/16 03:50 37.0 87 20 132/62 98 Nasal Cannula 3.0 12/18/16 00:00 97 Nasal Cannula 3.0 12/17/16 23:57 37.3 83 20 142/69 97 Nasal Cannula 3.0 12/17/16 22:36 81 18 113/77 95 Nasal Cannula 3.0 12/17/16 21:30 94 18 148/72 95 Nasal Cannula 3.0 12/17/16 20:30 37.0 79 18 147/72 95 Nasal Cannula 3.0 12/17/16 20:15 37.0 86 18 165/63 99 Nasal Cannula 3.0 12/17/16 20:00 97 Nasal Cannula 3.0 12/17/16 20:00 Room Air 12/17/16 19:57 36.8 117 18 116/75 95 Room Air 12/17/16 18:30 37.0 81 18 165/55 97 Nasal Cannula 3.0 Humidified Oxygen 12/17/16 18:06 81 20 12/17/16 18:06 80 20 98 12/17/16 18:05 165/55 12/17/16 18:01 81 18 99 12/17/16 18:01 82 18 12/17/16 18:00 150/58 12/17/16 17:56 80 18 12/17/16 17:56 81 18 98 12/17/16 17:56 37.5 12/17/16 17:55 153/59 12/17/16 17:51 79 17 12/17/16 17:51 78 17 97 12/17/16 17:50 156/56 12/17/16 17:47 86 19 12/17/16 17:47 81 19 98 12/17/16 17:45 163/60 12/17/16 17:42 85 18 99 12/17/16 17:42 87 18 12/17/16 17:41 83 19 98 12/17/16 17:41 78 19 12/17/16 17:40 163/61 12/17/16 17:36 81 20 98 12/17/16 17:36 83 20 12/17/16 17:35 149/70 12/17/16 17:31 85 17 98 12/17/16 17:31 88 17 12/17/16 17:30 165/63 12/17/16 17:26 80 18 12/17/16 17:26 83 18 98 12/17/16 17:25 168/66 12/17/16 17:21 80 20 12/17/16 17:21 81 20 98 12/17/16 17:20 167/57 12/17/16 17:18 95 20 98 12/17/16 17:18 82 20 4/11/17 17:15 174/64 12/17/16 17:13 86 18 12/17/16 17:13 86 18 98 12/17/16 17:11 172/65 12/17/16 17:08 86 23 98 12/17/16 17:08 82 23 12/17/16 17:05 171/76 12/17/16 17:03 82 19 12/17/16 17:03 88 19 96 12/17/16 17:00 170/68 12/17/16 16:58 36.4 86 16 163/79 98 Nasal Cannula 4 12/17/16 16:58 80 30 163/79 99 12/17/16 16:58 82 30 (Mago Matias ., PA-C) Physical Exam General Appearance: WD/WN, + severe distress (secondary to pain) Eyes: normal inspection, PERRL, sclerae normal ENT: normal ENT inspection, hearing grossly normal, pharynx normal Neck: supple, no JVD, trachea midline Respiratory/Chest: lungs clear, normal breath sounds, no respiratory distress Cardiovascular: no gallop, no murmur, + irregularly irregular (rate controlled) Abdomen: normal bowel sounds, non tender, soft Extremities: no pedal edema, + pertinent finding (left BKA, dressings intact. extremely tender. Deformity of right foot.) Neurologic/Psychiatric: alert, oriented x 3, + pertinent finding (very distressed due to pain) Skin: normal color, warm/dry, no rash (Mago Matias ., PA-C) Laboratory Results Last 24 Hours Test 12/17/16 16:23 12/17/16 17:00 12/17/16 18:23 12/17/16 20:38 Hemoglobin 8.6 g/dL Hematocrit 24.5 % Bedside Glucose 181 mg/dl 187 mg/dl 183 mg/dl Test 12/17/16 23:13 12/18/16 06:27 12/18/16 07:50 12/18/16 11:16 Bedside Glucose 147 mg/dl 176 mg/dl White Blood Count 6.59 K/uL Red Blood Count 2.93 M/uL Hemoglobin 8.5 g/dL Hematocrit 24.9 % Mean Corpuscular Volume 85.0 fL Mean Corpuscular Hemoglobin 29.0 pg Mean Corpuscular Hemoglobin Concent 34.1 g/dl RDW Standard Deviation 59.5 fL RDW Coefficient of Variation 19.4 % Platelet Count 109 K/uL Mean Platelet Volume 8.0 fL Sodium Level 134 mmol/L Potassium Level 4.1 mmol/L Chloride Level 98 mmol/L Carbon Dioxide Level 29 mmol/L Anion Gap 7.0 mmol/L Blood Urea Nitrogen 17 mg/dl Creatinine 1.20 mg/dl Est Creatinine Clear Calc Drug Dose 47.6 ml/min Estimated GFR () 52.3 Estimated GFR (Non- 45.1 BUN/Creatinine Ratio 14.4 Random Glucose 183 mg/dl Calcium Level 8.1 mg/dl (Mago Matias, NORA) Assessment and Plan 69 female with a history of chronic lower extremity wounds, T2DM, CAD, HTN, diastolic CHF, a.fib, hypothyroidism, COPD, and GERD who presented to the ED with a worsening LLE wound. Left foot ulcer w/LLE cellulitis and left foot osteomyelitis--s/p left BKA on . POD #1 -Admit to telemetry following procedure. Patient rate controlled A. fib overnight with heart rate in 70s to 90s -ID consulted, appreciate recs: Continue on Zyvox and Levaquin for 1 week postop. -Severe pain, patient on Dilaudid HRIS ADMINISTRATOR. 0.25 mg demand dose with q20m lock-out interval Acute on chronic anemia--stable -Received 2 units PRBCs on 12/16 -Hemoglobin remains stable at 8.5 on 12/18 -Continue to monitor COPD with chronic respiratory failure--stable, saturating at 97% on 3 L -O2 by protocol -Continue Advair 1 puff inh BID, theophylline 600 mg PO qhs, and Spiriva Chronic diastolic CHF--stable -Continue spironolactone 25 mg PO qam and Lasix 20 mg PO qd M4GV--oklx HgbA1c checked on 09/20/16 was 5.3 -Insulin sliding scale -Check BSGs q ac and qhs HTN/a-fib--stable -Continue diltiazem 240 mg PO qam, digoxin 125 mcg PO qd CKD stage 3--baseline creatinine 1.2 -Creatinine 1.4 on 12/17 -Creatinine improved, back to baseline on 12/18 at 1.2 Hypothyroidism -Continue Synthroid 250 mcg PO qd DVT prophylaxis -Enoxaparin 40 mg SC q24h per ortho Code Status -Level V, DO NOT RESUSCITATE Dispo -Pt accepted to [facility], discharge uncertain due to intractable pain This chart was completed in part utilizing [employer] Speech Voice Recognition software. Attempts were made to minimize the grammatical errors, random word insertions, pronoun errors and incomplete sentences. Any formal questions or concerns about the content, text or information contained within the body of this dictation should be directly addressed to the provider for clarification. (Mago Matias ., PA-C) Attending Attestation: Pt seen/examined, chart reviewed, care plan d/w JULI Matias. I agree w/ the andrea components of her documentation. Please see my full progress note from today for additional details. Wade Lui MD (Wade Lui MD)
--- NOTE | 2016-12-18 13:28 | Medical Student: [facility] ---
Med Student Progress Note Date of Service Dec 18, 2016. Subjective Pt evaluation today including: conversation w/ patient, physical exam, lab review, review of studies Pain: 10 Voiding: pratt catheter in place 71 year old female status POD#1 left BKA for chronic LLE wound and osteomyelitis. Patient rates pain 10/10 and repeatedly states that "this is the worst pain of my life." Her distress makes having a conversation with her difficult. Denies chest pain, shortness of breath, abdominal pain, nausea, and vomiting. She has not been eating or drinking due to pain. Nursing staff says she has not been continuously using her Dilaudid HOG SCALDER pump overnight. She does not seem to understand how to press the button but verbalizes understanding when explained to her. She has been reported to trying to activated the medication by chewing on the trigger device. Patient had a febrile temperature of 38.7C this morning. She is currently afebrile. Pratt catheter is in place. Review of Systems Respiratory: No cough, No shortness of breath Cardiac: No chest pain, No palpitations Abdomen: No nausea, No pain, No vomiting Notes: Patient's distress makes ROS very difficult to complete. Objective Vital Signs Date Time Temp Pulse Resp B/P Pulse Ox O2 Delivery O2 Flow Rate FiO2 12/18/16 11:24 37.4 99 20 151/66 97 Nasal Cannula 3.0 12/18/16 11:10 37.2 93 24 152/64 96 12/18/16 10:25 37.7 12/18/16 09:45 90 12/18/16 08:47 37.2 95 24 158/62 96 12/18/16 08:00 Nasal Cannula 3.0 12/18/16 07:06 38.7 98 20 153/63 96 Nasal Cannula 3.0 12/18/16 04:00 97 Nasal Cannula 3.0 12/18/16 03:50 37.0 87 20 132/62 98 Nasal Cannula 3.0 12/18/16 00:00 97 Nasal Cannula 3.0 12/17/16 23:57 37.3 83 20 142/69 97 Nasal Cannula 3.0 12/17/16 22:36 81 18 113/77 95 Nasal Cannula 3.0 12/17/16 21:30 94 18 148/72 95 Nasal Cannula 3.0 12/17/16 20:30 37.0 79 18 147/72 95 Nasal Cannula 3.0 12/17/16 20:15 37.0 86 18 165/63 99 Nasal Cannula 3.0 12/17/16 20:00 97 Nasal Cannula 3.0 12/17/16 20:00 Room Air 12/17/16 19:57 36.8 117 18 116/75 95 Room Air 12/17/16 18:30 37.0 81 18 165/55 97 Nasal Cannula 3.0 Humidified Oxygen 12/17/16 18:06 81 20 12/17/16 18:06 80 20 98 12/17/16 18:05 165/55 12/17/16 18:01 81 18 99 12/17/16 18:01 82 18 12/17/16 18:00 150/58 12/17/16 17:56 80 18 12/17/16 17:56 81 18 98 12/17/16 17:56 37.5 12/17/16 17:55 153/59 12/17/16 17:51 79 17 12/17/16 17:51 78 17 97 12/17/16 17:50 156/56 12/17/16 17:47 86 19 12/17/16 17:47 81 19 98 12/17/16 17:45 163/60 12/17/16 17:42 85 18 99 12/17/16 17:42 87 18 12/17/16 17:41 83 19 98 12/17/16 17:41 78 19 12/17/16 17:40 163/61 12/17/16 17:36 81 20 98 12/17/16 17:36 83 20 12/17/16 17:35 149/70 12/17/16 17:31 85 17 98 12/17/16 17:31 88 17 12/17/16 17:30 165/63 12/17/16 17:26 80 18 12/17/16 17:26 83 18 98 12/17/16 17:25 168/66 12/17/16 17:21 80 20 12/17/16 17:21 81 20 98 12/17/16 17:20 167/57 12/17/16 17:18 95 20 98 12/17/16 17:18 82 20 12/17/16 17:15 174/64 12/17/16 17:13 86 18 4/11/17 17:13 86 18 98 12/17/16 17:11 172/65 12/17/16 17:08 86 23 98 12/17/16 17:08 82 23 12/17/16 17:05 171/76 12/17/16 17:03 82 19 12/17/16 17:03 88 19 96 12/17/16 17:00 170/68 12/17/16 16:58 36.4 86 16 163/79 98 Nasal Cannula 4 12/17/16 16:58 80 30 163/79 99 12/17/16 16:58 82 30 Physical Exam General Appearance: + severe distress, + obese ENT: hearing grossly normal Neck: no JVD Respiratory/Chest: chest non-tender, lungs clear, normal breath sounds, no respiratory distress, no accessory muscle use Cardiovascular: no murmur, + irregularly irregular Abdomen: normal bowel sounds, non tender, soft Extremities: + pertinent finding (left BKA dressing and drain intact) Neurologic/Psychiatric: alert, + disoriented (unable to understand some commands), + pertinent finding (patient very upset about surgery) Laboratory Results Last 24 Hours Test 12/17/16 16:23 12/17/16 17:00 12/17/16 18:23 12/17/16 20:38 Hemoglobin 8.6 g/dL Hematocrit 24.5 % Bedside Glucose 181 mg/dl 187 mg/dl 183 mg/dl Test 12/17/16 23:13 12/18/16 06:27 12/18/16 07:50 12/18/16 11:33 Bedside Glucose 147 mg/dl 176 mg/dl 215 mg/dl White Blood Count 6.59 K/uL Red Blood Count 2.93 M/uL Hemoglobin 8.5 g/dL Hematocrit 24.9 % Mean Corpuscular Volume 85.0 fL Mean Corpuscular Hemoglobin 29.0 pg Mean Corpuscular Hemoglobin Concent 34.1 g/dl RDW Standard Deviation 59.5 fL RDW Coefficient of Variation 19.4 % Platelet Count 109 K/uL Mean Platelet Volume 8.0 fL Sodium Level 134 mmol/L Potassium Level 4.1 mmol/L Chloride Level 98 mmol/L Carbon Dioxide Level 29 mmol/L Anion Gap 7.0 mmol/L Blood Urea Nitrogen 17 mg/dl Creatinine 1.20 mg/dl Est Creatinine Clear Calc Drug Dose 47.6 ml/min Estimated GFR () 52.3 Estimated GFR (Non- 45.1 BUN/Creatinine Ratio 14.4 Random Glucose 183 mg/dl Calcium Level 8.1 mg/dl Test 12/18/16 11:57 Venous Blood pH 7.45 Venous Blood Partial Pressure CO2 42 mmHg Venous Blood Partial Pressure O2 44 mmHg Venous Blood HCO3 29 mmol/L Venous Blood Oxygen Saturation 78.3 % Venous Blood Base Excess 4.0 mmol/L Assessment and Plan Assessment and Plan: ASSESSMENT 71 year old female status POD#1 left BKA for chronic LLE wound and osteomyelitis. Nursing staff have been repeatedly trying to show patient how to use HOG SCALDER pump. Patient's level of orientation seems to come and ago. PLAN 1) Left lower extremity osteomyelitis -status POD#1 left BKA -per ortho surgical site looks good, patient should be OOB to chair -continue IV/PO antibiotics for 1 week 2) Pain control with narcotic tolerance -HOG SCALDER Dilaudid 0.25mg with 20 minute lock out. -Consider switching to continuous if patient is unable to use HOG SCALDER correctly. 3) acute on chronic anemia -secondary to anemia of chronic disease -s/p transfusion of 2 units RBC on 12/16 -Hemoglobin 8.5, Hematocrit 24.9 4) Diastolic CHF -compensated 5) Constipation -no bowel movement in 1 week -Suppository ordered 6) Hypertension -Dilitazem 7) T2DM -sliding scale insulin -fasting glucose this morning was 183 8) CK stage 3 -Cr 1.2 9) Hypothyroid -continue synthroid 10) CAD -no ischemic symptoms at this time 11) atrial fibrillation -digoxin -cardizem 12) GERD -Pantropazole 40mg 13) PAD -mild lower extremity PAD, no surgical intervention recommended by vascular 14) DVT -Started on Lovenox after seen by orthopedics Continued [facility] stay due to: ambulation difficulties, multiple IV medications needed, other (left BKA) Discharge planning: uncertain
--- NOTE | 2016-12-18 13:48 | Infectious Disease Progress Nt ---
Progress Note Date of Service Dec 18, 2016. Subjective Pt evaluation today including: conversation w/ patient, physical exam, chart review, lab review, review of studies, conversation w/ software sales consultant (pharmacy), review of inpatient medication list Patient is now s/p left BKA. She states that she is experiencing severe pain. This is 10/10 pain which is not well controlled on current pain medication. She appears to be slightly disoriented, so her review of systems is of questionable reliability. The patient states that she has not moved her bowels today. White blood cell count today was 6.59. Her creatinine is stable 1.20. She continues on Levaquin and Zyvox. All Other Systems: Reviewed and Negative Medications Current Inpatient Medications Medications (Trade) Dose Ordered Sig/Hans Route Start Time Stop Time Status Last Admin Dose Admin Acetaminophen (Tylenol Tab) 650 mg Q4H PRN PO 12/13/16 18:15 01/12/17 18:14 Al Hydrox/Mg Hydrox/Simethicone (Maalox Max Susp) 15 ml Q4H PRN PO 12/13/16 18:15 01/12/17 18:14 Magnesium Hydroxide (Milk Of Magnesia Susp) 30 ml Q6H PRN PO 12/13/16 18:15 01/12/17 18:14 Ondansetron HCl (Zofran Inj) 4 mg Q6H PRN IV 12/13/16 18:15 01/12/17 18:14 Digoxin (Lanoxin Tab) 0.125 mg QAM PO 12/14/16 09:00 01/13/17 08:59 12/18/16 09:45 0.125 MG Ferrous Gluconate (Ferrous Gluconate Tab) 324 mg DAILY PO 12/14/16 09:00 01/13/17 08:59 12/16/16 08:51 324 MG Salmeterol Xinafoate/ Fluticasone (Advair Diskus 250/50 Inh) 1 puff BID INH 12/13/16 21:00 01/12/17 20:59 12/18/16 09:46 1 PUFF Furosemide (Lasix Tab) 20 mg DAILY PO 12/14/16 09:00 01/13/17 08:59 12/18/16 09:47 20 MG Acetaminophen/ Hydrocodone Bitart ([place] 5/325 Tab) 1 tab Q6H PRN PO 12/13/16 18:15 12/27/16 18:14 12/18/16 07:36 1 TAB Lactobacillus Acidophilus (Floranex Tab) 2 tab TIDM PO 12/14/16 08:30 01/13/17 08:29 12/18/16 07:34 2 TAB Magnesium Oxide (Mag-Ox Tab) 400 mg BID PO 12/13/16 21:00 01/12/17 20:59 12/16/16 21:48 400 MG Nitroglycerin (Nitrostat Tab) 0.4 mg DAILY PRN SL 12/13/16 18:15 01/12/17 18:14 Potassium Chloride (Klor-Con Tab) 20 meq DAILY PO 12/14/16 09:00 01/13/17 08:59 12/16/16 08:51 20 MEQ Spironolactone (Aldactone Tab) 25 mg QAM PO 12/14/16 09:00 01/13/17 08:59 12/18/16 09:47 25 MG Theophylline (Paul-Dur Extended Rel Tab) 600 mg HS PO 12/13/16 21:00 01/12/17 20:59 12/16/16 21:48 600 MG Tiotropium [place] (Spiriva Handihaler Inhaler) 1 puff DAILY INH 12/14/16 09:00 01/13/17 08:59 12/18/16 09:46 1 PUFF Tramadol HCl (Ultram Tab) 50 mg Q8H PRN PO 12/13/16 18:15 01/12/17 18:14 Diltiazem HCl (Cardizem Cd Cap) 240 mg QAM PO 12/14/16 09:00 01/13/17 08:59 Future Hold 12/16/16 08:53 240 MG Multi-Ingredient Ointment (Eucerin Unscented Cr) 1 appln BID EXT 12/13/16 21:00 01/12/17 20:59 12/18/16 09:00 1 APPLN Pantoprazole Sodium (Protonix Tab) 40 mg QAM PO 12/14/16 09:00 01/13/17 08:59 12/16/16 08:52 40 MG Levofloxacin (Consult) 1 ea UD PRN N/A 12/13/16 20:30 01/12/17 20:29 Levothyroxine Sodium/ Levothyroxine Sodium (Synthroid Tab/ Synthroid Tab) 250 mcg DAILYBB PO 12/14/16 06:00 01/13/17 05:59 12/18/16 05:45 250 MCG Glucose (Glucose 40% Gel) 15-30 GRAMS 15 GRAMS... UD PRN PO 12/14/16 19:00 01/13/17 18:59 Glucose (Glucose Chew Tab) 4-8 Tablets 4 Tabl... UD PRN PO 12/14/16 19:00 01/13/17 18:59 Dextrose (Dextrose 50% 50ML Syringe) 25-50ML OF 50% DW IV FOR... UD PRN IV 12/14/16 19:00 01/13/17 18:59 Glucagon (Glucagon Inj) 1 mg UD PRN SQ 12/14/16 19:00 01/13/17 18:59 Sodium Chloride (Labette Nasal [place]) 1 sprays QID PRN NA 12/15/16 12:45 01/14/17 12:44 Insulin Glargine (Lantus Solostar Pen) 10 unit BID SC 12/15/16 21:00 01/14/17 20:59 Future Hold 12/16/16 21:52 10 UNIT Polyethylene 17 gm 17 gm BID PO 12/16/16 09:30 01/15/17 09:29 12/18/16 09:46 17 GM Levofloxacin/Prmx (Levaquin / D5W/ Premixed D5W) 150 ml @ 100 mls/hr Q48H IV 12/18/16 18:00 01/24/17 23:59 Enoxaparin Sodium (Lovenox Inj) 40 mg Q24H SQ 12/18/16 09:00 01/17/17 08:59 12/18/16 09:00 40 MG Miscellaneous Information (Pharmacy Consult) 1 ea UD N/A 12/17/16 18:05 01/16/17 18:04 Naloxone HCl (Narcan Inj) 0.1 mg Q5M PRN IV 12/17/16 19:45 01/16/17 19:44 Hydromorphone HCl 25 mg 25 mg PRN PRN IV 12/17/16 19:45 12/31/16 19:44 12/17/16 22:15 25 MG Sodium Chloride (Nss 1000ml) 1,000 ml @ 15 mls/hr Q24H IV 12/17/16 19:31 01/16/17 19:30 12/17/16 22:05 15 MLS/HR Insulin Aspart (novoLOG ASPART) SLIDING SCALE G... ACHS SC 12/18/16 07:00 01/17/17 06:59 12/18/16 11:36 3 UNITS Gabapentin 300 mg 300 mg BID PO 12/18/16 09:00 01/17/17 08:59 12/18/16 09:44 300 MG Sodium Chloride (Nss 500ml) 500 ml @ 50 mls/hr Q10H IV 12/18/16 11:30 12/18/16 21:29 12/18/16 11:38 50 MLS/HR Objective Vital Signs Date Time Temp Pulse Resp B/P Pulse Ox O2 Delivery O2 Flow Rate FiO2 12/18/16 12:00 Nasal Cannula 3.0 12/18/16 11:24 37.4 99 20 151/66 97 Nasal Cannula 3.0 12/18/16 11:10 37.2 93 24 152/64 96 12/18/16 10:25 37.7 12/18/16 09:45 90 12/18/16 08:47 37.2 95 24 158/62 96 12/18/16 08:00 Nasal Cannula 3.0 12/18/16 07:06 38.7 98 20 153/63 96 Nasal Cannula 3.0 12/18/16 04:00 97 Nasal Cannula 3.0 12/18/16 03:50 37.0 87 20 132/62 98 Nasal Cannula 3.0 12/18/16 00:00 97 Nasal Cannula 3.0 12/17/16 23:57 37.3 83 20 142/69 97 Nasal Cannula 3.0 12/17/16 22:36 81 18 113/77 95 Nasal Cannula 3.0 12/17/16 21:30 94 18 148/72 95 Nasal Cannula 3.0 12/17/16 20:30 37.0 79 18 147/72 95 Nasal Cannula 3.0 12/17/16 20:15 37.0 86 18 165/63 99 Nasal Cannula 3.0 12/17/16 20:00 97 Nasal Cannula 3.0 12/17/16 20:00 Room Air 12/17/16 19:57 36.8 117 18 116/75 95 Room Air 12/17/16 18:30 37.0 81 18 165/55 97 Nasal Cannula 3.0 Humidified Oxygen 12/17/16 18:06 81 20 12/17/16 18:06 80 20 98 12/17/16 18:05 165/55 12/17/16 18:01 81 18 99 12/17/16 18:01 82 18 12/17/16 18:00 150/58 12/17/16 17:56 80 18 12/17/16 17:56 81 18 98 12/17/16 17:56 37.5 12/17/16 17:55 153/59 12/17/16 17:51 79 17 12/17/16 17:51 78 17 97 12/17/16 17:50 156/56 12/17/16 17:47 86 19 12/17/16 17:47 81 19 98 12/17/16 17:45 163/60 12/17/16 17:42 85 18 99 12/17/16 17:42 87 18 12/17/16 17:41 83 19 98 12/17/16 17:41 78 19 12/17/16 17:40 163/61 12/17/16 17:36 81 20 98 12/17/16 17:36 83 20 12/17/16 17:35 149/70 12/17/16 17:31 85 17 98 12/17/16 17:31 88 17 12/17/16 17:30 165/63 12/17/16 17:26 80 18 12/17/16 17:26 83 18 98 12/17/16 17:25 168/66 12/17/16 17:21 80 20 12/17/16 17:21 81 20 98 12/17/16 17:20 167/57 12/17/16 17:18 95 20 98 12/17/16 17:18 82 20 12/17/16 17:15 174/64 12/17/16 17:13 86 18 12/17/16 17:13 86 18 98 12/17/16 17:11 172/65 12/17/16 17:08 86 23 98 12/17/16 17:08 82 23 12/17/16 17:05 171/76 12/17/16 17:03 82 19 12/17/16 17:03 88 19 96 12/17/16 17:00 170/68 12/17/16 16:58 36.4 86 16 163/79 98 Nasal Cannula 4 12/17/16 16:58 80 30 163/79 99 12/17/16 16:58 82 30 Physical Exam General Appearance: + moderate distress (pain) Eyes: normal inspection ENT: hearing grossly normal Neck: supple, trachea midline Respiratory/Chest: chest non-tender, no respiratory distress, no accessory muscle use Cardiovascular: + tachycardia Extremities: + pertinent finding (left BKA- large dressing in place) Neurologic/Psychiatric: + disoriented Skin: normal color Laboratory Results Item Value Date Time MRSA DNA Surveillance Screen - Final Complete 12/13/16 2140 Nasal Specimen Negative for MRSA by DNA Probe Blood Culture - Preliminary Resulted 12/13/16 1630 Blood NO GROWTH TO DATE. Blood Culture - Preliminary Resulted 12/13/16 1620 Blood NO GROWTH TO DATE. Last 24 Hours Test 12/17/16 16:23 12/17/16 17:00 12/17/16 18:23 12/17/16 20:38 Hemoglobin 8.6 g/dL Hematocrit 24.5 % Bedside Glucose 181 mg/dl 187 mg/dl 183 mg/dl Test 12/17/16 23:13 12/18/16 06:27 12/18/16 07:50 12/18/16 11:33 Bedside Glucose 147 mg/dl 176 mg/dl 215 mg/dl White Blood Count 6.59 K/uL Red Blood Count 2.93 M/uL Hemoglobin 8.5 g/dL Hematocrit 24.9 % Mean Corpuscular Volume 85.0 fL Mean Corpuscular Hemoglobin 29.0 pg Mean Corpuscular Hemoglobin Concent 34.1 g/dl RDW Standard Deviation 59.5 fL RDW Coefficient of Variation 19.4 % Platelet Count 109 K/uL Mean Platelet Volume 8.0 fL Sodium Level 134 mmol/L Potassium Level 4.1 mmol/L Chloride Level 98 mmol/L Carbon Dioxide Level 29 mmol/L Anion Gap 7.0 mmol/L Blood Urea Nitrogen 17 mg/dl Creatinine 1.20 mg/dl Est Creatinine Clear Calc Drug Dose 47.6 ml/min Estimated GFR () 52.3 Estimated GFR (Non- 45.1 BUN/Creatinine Ratio 14.4 Random Glucose 183 mg/dl Calcium Level 8.1 mg/dl Test 12/18/16 11:57 Venous Blood pH 7.45 Venous Blood Partial Pressure CO2 42 mmHg Venous Blood Partial Pressure O2 44 mmHg Venous Blood HCO3 29 mmol/L Venous Blood Oxygen Saturation 78.3 % Venous Blood Base Excess 4.0 mmol/L Assessment and Plan Diabetic female with chronic left lower extremity wounds and underlying osteomyelitis now s/p left BKA. Patient continues on Zyvox and Levaquin, discussed with pharmacy and these can be converted to p.o. antibiotic therapy. The patient likely will need approximately 7 days of therapy after her surgical date. We will continue to follow this patient Case reviewed and agree with above assessment.
[2016-12-18] MEDS: ACETAMINOPHEN 325 MG TAB PO PRN (15:57)
[2016-12-18] MEDS: LINEZOLID 600 MG TAB PO SCH (15:58)
[2016-12-18 16:41] LABS: URINE APPEARANCE CLOUDY (CLEAR); URINE BILIRUBIN NEG (NEG); URINE COLOR YELLOW; URINE NITRITE NEG (NEG); URINE SPECIFIC GRAVITY 1.016 (1.000-1.030); UROBILINOGEN NEG (NEG)
[2016-12-18 16:53] LABS: MANUAL MICROSCOPIC REQUIRED? NO; REVIEW REQ? YES
[2016-12-18 17:27] LABS: URINE PATH CASTS 1-5 GRANULAR CASTS /lpf (0)
[2016-12-18] MEDS ORDERED: PIPERACILL/TAZOBAC CONSULT ACTIVE PRN (17:30)
[2016-12-18] MEDS ORDERED: PIPERACILL/TAZOBAC IV 3.375 GM in DEXTROSE 5% 100ML 100 ML IV SCH (17:30)
[2016-12-18] MEDS ORDERED: LEVOFLOXACIN 750 MG TAB PO SCH (18:00)
[2016-12-18] MEDS ORDERED: LEVOFLOXACIN / D5W 750 MG in PREMIXED IN D5W 150 ML IV SCH (18:00)
[2016-12-18] MEDS ORDERED: PIPERACILL/TAZOBAC IV 4.5 GM in DEXTROSE 5% 100ML IV ONE (18:00)
--- NOTE | 2016-12-18 18:32 | PROGRESS NOTE ---
DATE: 12/18/2016 Valery is sleeping. She is easily arousable. She is alert to person and place but not to date. She complains of pain in her left leg and that she cannot move. She can move both upper extremities and the right lower extremity without difficulty. Her residual limb dressing is intact. Her Hemovac has put out 85 mL. I will plan to leave this in overnight and likely remove tomorrow. She did spike a temperature of 39.4 degrees earlier today. Her white count is 6, hemoglobin 9, hematocrit 25, platelet count is 109, her PRP is noted. IMPRESSION: Right below knee amputation. PLAN: Findings are discussed with the patient. Blood cultures have been done for her temperature; likely pulmonary in nature. We will evaluate the wound tomorrow. Continue to monitor for signs or symptoms of surgical site infection. Consultation with acute pain service may be helpful due to potential for neuropathic and phantom limb type pain. Lovenox for DVT prophylaxis. Her H\T\H is stable. Continue antibiotics. Nutrition consult. Radiograph of the residual limb shows maintenance of length of approximately 14 cm. Overall no knee arthritis, no visible complication.
--- NOTE | 2016-12-18 19:33 | Progress Note ---
Subjective Date of Service: Dec 18, 2016. Subjective Pt evaluation today including: conversation w/ patient, physical exam, chart review, lab review, conversation w/ excellence consultant (ID, orthopedics), review of inpatient medication list Pain: severe, left leg PO Intake: did not eat breakfast Voiding: pratt catheter in place tele with stable a. fib overnight she had severe left leg pain through the night but had difficulty manipulating the FOOD AND BEVERAGE CHECKER pump button she was very tearful during the visit, stating "I would rather be than this " despite such she was oriented to place, person, time describes the pain as a throbbing, stabbing pain in the left leg denies sob Problem List Medical Problems: (1) Atrial fibrillation Status: Acute (2) Bifascicular block Status: Acute (3) Cellulitis of both lower extremities Status: Acute (4) Cellulitis of foot, left Status: Acute (5) Cellulitis of left lower leg Status: Acute (6) CHF (congestive heart failure) Status: Acute (7) Constipation Status: Acute (8) Diabetic foot ulcer Status: Acute (9) Electrolyte abnormality Status: Acute (10) Hypokalemia Status: Acute (11) Leukocytosis Status: Acute (12) Sepsis Status: Acute (13) UTI (urinary tract infection) Status: Acute Review of Systems Constitutional: + fever Respiratory: No cough, No shortness of breath Cardiac: No chest pain, No orthopnea Abdomen: No pain Objective Vital Signs Date Time Temp Pulse Resp B/P Pulse Ox O2 Delivery O2 Flow Rate FiO2 12/18/16 16:00 Nasal Cannula 3.0 12/18/16 15:37 39.4 99 20 166/68 96 Nasal Cannula 3.0 12/18/16 12:00 Nasal Cannula 3.0 12/18/16 11:24 37.4 99 20 151/66 97 Nasal Cannula 3.0 12/18/16 11:10 37.2 93 24 152/64 96 12/18/16 10:25 37.7 12/18/16 09:45 90 12/18/16 08:47 37.2 95 24 158/62 96 12/18/16 08:00 Nasal Cannula 3.0 12/18/16 07:06 38.7 98 20 153/63 96 Nasal Cannula 3.0 12/18/16 04:00 97 Nasal Cannula 3.0 12/18/16 03:50 37.0 87 20 132/62 98 Nasal Cannula 3.0 12/18/16 00:00 97 Nasal Cannula 3.0 12/17/16 23:57 37.3 83 20 142/69 97 Nasal Cannula 3.0 12/17/16 22:36 81 18 113/77 95 Nasal Cannula 3.0 12/17/16 21:30 94 18 148/72 95 Nasal Cannula 3.0 12/17/16 20:30 37.0 79 18 147/72 95 Nasal Cannula 3.0 12/17/16 20:15 37.0 86 18 165/63 99 Nasal Cannula 3.0 12/17/16 20:00 97 Nasal Cannula 3.0 12/17/16 20:00 Room Air 12/17/16 19:57 36.8 117 18 116/75 95 Room Air Physical Exam General Appearance: + mild distress (tearful, in pain) ENT: + pertinent finding (MM dry) Neck: no JVD Respiratory/Chest: lungs clear, no respiratory distress, no accessory muscle use Cardiovascular: no gallop, + irregularly irregular Abdomen: normal bowel sounds, non tender, soft, no organomegaly Extremities: + pertinent finding (left BKA; dressings and drain in place; right foot pulses 1+; no edema; foot deformity) Neurologic/Psychiatric: alert, oriented x 3, + depressed affect Skin: + pallor Laboratory Results Last 24 Hours Test 12/17/16 20:38 12/17/16 23:13 12/18/16 06:27 12/18/16 07:50 Bedside Glucose 183 mg/dl 147 mg/dl 176 mg/dl White Blood Count 6.59 K/uL Red Blood Count 2.93 M/uL Hemoglobin 8.5 g/dL Hematocrit 24.9 % Mean Corpuscular Volume 85.0 fL Mean Corpuscular Hemoglobin 29.0 pg Mean Corpuscular Hemoglobin Concent 34.1 g/dl RDW Standard Deviation 59.5 fL RDW Coefficient of Variation 19.4 % Platelet Count 109 K/uL Mean Platelet Volume 8.0 fL Sodium Level 134 mmol/L Potassium Level 4.1 mmol/L Chloride Level 98 mmol/L Carbon Dioxide Level 29 mmol/L Anion Gap 7.0 mmol/L Blood Urea Nitrogen 17 mg/dl Creatinine 1.20 mg/dl Est Creatinine Clear Calc Drug Dose 47.6 ml/min Estimated GFR () 52.3 Estimated GFR (Non- 45.1 BUN/Creatinine Ratio 14.4 Random Glucose 183 mg/dl Calcium Level 8.1 mg/dl Test 12/18/16 11:33 12/18/16 11:57 12/18/16 16:00 12/18/16 16:15 Bedside Glucose 215 mg/dl 194 mg/dl Venous Blood pH 7.45 Venous Blood Partial Pressure CO2 42 mmHg Venous Blood Partial Pressure O2 44 mmHg Venous Blood HCO3 29 mmol/L Venous Blood Oxygen Saturation 78.3 % Venous Blood Base Excess 4.0 mmol/L Urine Color YELLOW Urine Appearance CLOUDY Urine pH 5.0 Urine Specific [place] 1.016 Urine Protein 1+ Urine Glucose (UA) NEG Urine Ketones NEG Urine Occult Blood 1+ Urine Nitrite NEG Urine Bilirubin NEG Urine Urobilinogen NEG Urine Leukocyte Esterase NEG Urine WBC (Auto) 1-5 /hpf Urine RBC (Auto) 0-4 /hpf Urine Hyaline Casts (Auto) 5-10 /lpf Urine Epithelial Cells (Auto) 10-20 /lpf Urine Bacteria (Auto) NEG Urine Pathogenic Casts 1-5 GRANULAR CASTS /lpf Urine Yeast (Auto) Assessment and Plan 71yo female with: 1. left foot ulcer with associated LLE cellulitis and osteomyelitis of the foot - s/p left BKA, POD #1. She will remain on IV/PO abx for at least 1 week according to ID. Appreciate orthopedic assistance; defer management to ortho. 2. acute/chronic anemia - acute component 2nd to blood draws, etc. s/p 2 units PRBCs earlier this stay. H/H stable post-op. Previous iron studies, b12, folate all normal. Suspect chronic anemia due to anemia of chronic disease (left foot osteomyelitis ). 3. chronic resp failure 2nd to COPD - stable, on home O2 amount. 4. chronic diastolic CHF - compensated. 5. constipation - cont bowel regimen. No BM in several days; dulcolax suppos x 1. 6. T2DM - control adequate w/ current insulin regimen. 7. HTN - controlled on home meds. 8. CKD stage 3 - creatinine stable and at baseline. 9. COPD - stable, not in exacerbation. Cont home inhalers. 10. hypothyroidism - TSH compensated; cont synthroid at current dose. 11. CAD - no ischemic symptoms at this time. 12. a. fib - continue digoxin, cardizem. 13. GERD - PPI. 14. DVT proph - lovenox 40mg daily. 15. PAD - has MILD PAD of the LEs but nothing in need of surgical intervention at this time. 16. pain control - continue FOOD AND BEVERAGE CHECKER dilaudid. Education regarding the FOOD AND BEVERAGE CHECKER given to patient. Adjust as needed. Will increase gabapentin to 300mg BID to for probable phantom limb pain. 17. fever - reculture the blood; send u/a and urine cx. Spoke with ID - will broaden the levaquin to zosyn. Cont zyvox. Transient inflammatory response to surgery? Other? Follow cultures for 48 hours. 18. thrombocytopenia - low but stable. Chronic issue. 19. fatigue, sleepiness - check VBG to ensure no hypercarbia. leave on tele again overnight Continued [facility] stay due to: inadequate oral pain control, ambulation difficulties, multiple IV medications needed, other (left BKA) Discharge planning: uncertain
[2016-12-18] MEDS: THEOPHYLLINE 300MG EXTENDED REL TAB PO SCH (20:58)
[2016-12-19] VITALS (8 sets, daily range): BP systolic 126–166; BP diastolic 59–71; PULSE 66–98; TEMP 36.8–37.3; O2SAT 97–99
[2016-12-19] MEDS: PIPERACILL/TAZOBAC IV 4.5 GM in DEXTROSE 5% 100ML IV SCH ×3 (00:08→16:29)
[2016-12-19] MEDS: HYDROCODONE/ACETAMOPHEN 5/325MG TAB PO PRN ×3 (05:26→23:45)
[2016-12-19] MEDS: SODIUM CHLORIDE 0.9% 1000ML 1,000 ML IV SCH (05:27)
[2016-12-19] MEDS: LEVOTHYROXINE SODIUM PO SCH ×2 (05:27)
[2016-12-19 05:57] LABS: HEMATOCRIT 25.1 % (37-47); MEAN CELL VOLUME 86.3 fL (80-100); MEAN CORPUSCULAR HEMOGLOBIN 28.5 pg (25-34); MEAN CORPUSCULAR HGB CONC 33.1 g/dl (32-36); MEAN PLATELET VOLUME 8.4 fL (7.4-10.4); PLATELET COUNT 100 K/uL (130-400); RED BLOOD COUNT 2.91 M/uL (4.2-5.4)
[2016-12-19 06:36] LABS: BUN/CREATININE RATIO 14.5 (10-20); CALCIUM 8.2 mg/dl (8.5-10.1); CREATININE 1.1 mg/dl (0.60-1.20); POTASSIUM 4.1 mmol/L (3.5-5.1)
[2016-12-19] MEDS: INSULIN ASPART 100 UNITS/ML 3 ML PEN SC SCH ×5 (07:00→20:44)
[2016-12-19] MEDS: POTASSIUM CHLORIDE 20 MEQ TABCR PO SCH (08:22)
[2016-12-19] MEDS: LINEZOLID 600 MG TAB PO SCH ×2 (08:22→20:39)
[2016-12-19] MEDS: GABAPENTIN 300 MG CAP PO SCH ×2 (08:23→20:37)
[2016-12-19] MEDS: SPIRONOLACTONE 25 MG TAB PO SCH (08:23)
[2016-12-19] MEDS: FUROSEMIDE 20 MG TAB PO SCH (08:23)
[2016-12-19] MEDS: DIGOXIN 0.125 MG TAB PO SCH (08:23)
[2016-12-19] MEDS: PANTOprazole SOD 40 MG TAB PO SCH (08:24)
[2016-12-19] MEDS: FERROUS GLUCONATE 324 MG TAB PO SCH (08:24)
[2016-12-19] MEDS: LACTOBACILLUS ACIDOPHILUS (FLORANEX) TAB PO SCH ×3 (08:24→17:58)
[2016-12-19] MEDS: MAGNESIUM OXIDE 400 MG TAB PO SCH ×2 (08:24→20:37)
[2016-12-19] MEDS: ENOXAPARIN 40 MG/0.4 ML SYR SQ SCH (08:25)
[2016-12-19] MEDS: TRAMADOL HCL 50 MG TAB PO PRN (08:25)
[2016-12-19] MEDS: FLUTICASONE/SALMETEROL 250/50 (ADVAIR) 14 PUFF/1 INHALER INH SCH ×2 (08:25→20:37)
[2016-12-19] MEDS: EUCERIN CR 120 GM JAR EXT SCH ×2 (08:26→20:38)
[2016-12-19] MEDS: POLYETHYLENE (MIRALAX) 17 GM PACK PO SCH ×2 (08:26→20:35)
[2016-12-19] MEDS: TIOTROPIUM BROMIDE 5 PUFF/90 MCG INH INH SCH (08:27)
--- NOTE | 2016-12-19 09:25 | Progress Note ---
Orthopedic SOAP Note Subjective Date of Service: Dec 19, 2016. 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 Problem List Medical Problems: (1) Atrial fibrillation Status: Acute (2) Bifascicular block Status: Acute (3) Cellulitis of both lower extremities Status: Acute (4) Cellulitis of foot, left Status: Acute (5) Cellulitis of left lower leg Status: Acute (6) CHF (congestive heart failure) Status: Acute (7) Constipation Status: Acute (8) Diabetic foot ulcer Status: Acute (9) Electrolyte abnormality Status: Acute (10) Hypokalemia Status: Acute (11) Leukocytosis Status: Acute (12) Sepsis Status: Acute (13) UTI (urinary tract infection) Status: Acute Objective dressing C/D/I (serosanguineous drainage but nothing current or excessive ), incision C/D/I (incision looks stable, no current drainage, minimal swelling, some mild erythema but nothing significant or worrisome this morning), A&O x3, hemovac drainage (minimal drainage, HV drain removed, tolerated well) Did not tolerate dressing change well today, pain reported seemed rather heightened for how little and gentle dressing was changed Date Time Temp Pulse Resp B/P Pulse Ox O2 Delivery O2 Flow Rate FiO2 12/19/16 08:23 93 12/19/16 04:00 Nasal Cannula 3.0 12/19/16 03:54 37.3 86 20 132/71 98 Nasal Cannula 3.0 12/19/16 00:00 36.8 87 20 166/68 97 Nasal Cannula 3.0 12/19/16 00:00 Nasal Cannula 3.0 12/18/16 20:00 Nasal Cannula 3.0 12/18/16 19:48 38.6 94 18 144/65 95 Nasal Cannula 3.0 12/18/16 16:00 Nasal Cannula 3.0 12/18/16 15:37 39.4 99 20 166/68 96 Nasal Cannula 3.0 12/18/16 12:00 Nasal Cannula 3.0 12/18/16 11:24 37.4 99 20 151/66 97 Nasal Cannula 3.0 12/18/16 11:10 37.2 93 24 152/64 96 12/18/16 10:25 37.7 12/18/16 09:45 90 Laboratory Results 24 Hours: Test 12/19/16 05:12 Hematocrit 25.1 % Hemoglobin 8.3 g/dL Assessment Left foot chronic osteomyelitis, diabetic foot ulcer, charcot arthropathy POD 2 left lower extremity below knee amputation Plan OOB to chair today. Continue hemovac, will recheck drainage later today Ice to left lower extremity stump Elevate left lower extremity Pain management as per medicine. Regular Diabetic diet as ordered Will continue to follow. Will discuss findings with Dr. Ute Magallanes for DVT prophylaxis.
--- NOTE | 2016-12-19 09:58 | Hospitalist Progress Note ---
Hospitalist Progress Note Date of Service Dec 19, 2016. (Mago Matias ., JULI-C) Subjective Pt evaluation today including: conversation w/ patient, physical exam, chart review, lab review, review of inpatient medication list Pain: 10/10 sharp pain in LLE PO Intake: Poor, no appetite secondary to pain Voiding: pratt catheter in place Patient reports still having severe, 10/10 sharp, throbbing pain in the LLE, although she appears to be resting much more comfortably today compared to yesterday and appears to be in less distress. She does complain of nausea and chest congestion. She associates some shortness of breath with the chest congestion. She states that she has a productive cough, although not a lot of phlegm comes up. She is still not eating much due to the pain and has no appetite. Pratt catheter is in place. The patient denies fevers, chills, sweats, chest pain, palpitations, claudication, wheezing, vomiting, abdominal pain, dysuria, hematuria, urinary retention, paralysis, weakness, numbness and tingling. Additional Comments: See HPI for pertinent positives and negatives. All other systems reviewed and negative. (Mago Matias ., PA-C) Objective Vital Signs Date Time Temp Pulse Resp B/P Pulse Ox O2 Delivery O2 Flow Rate FiO2 12/19/16 08:23 93 12/19/16 04:00 Nasal Cannula 3.0 12/19/16 03:54 37.3 86 20 132/71 98 Nasal Cannula 3.0 12/19/16 00:00 36.8 87 20 166/68 97 Nasal Cannula 3.0 12/19/16 00:00 Nasal Cannula 3.0 12/18/16 20:00 Nasal Cannula 3.0 12/18/16 19:48 38.6 94 18 144/65 95 Nasal Cannula 3.0 12/18/16 16:00 Nasal Cannula 3.0 12/18/16 15:37 39.4 99 20 166/68 96 Nasal Cannula 3.0 12/18/16 12:00 Nasal Cannula 3.0 12/18/16 11:24 37.4 99 20 151/66 97 Nasal Cannula 3.0 12/18/16 11:10 37.2 93 24 152/64 96 12/18/16 10:25 37.7 (Mago Matias ., PA-C) Physical Exam General Appearance: WD/WN, + mild distress (secondary to pain), + obese Eyes: normal inspection, PERRL, EOMI ENT: normal ENT inspection, hearing grossly normal, pharynx normal Neck: supple, no JVD, trachea midline Respiratory/Chest: lungs clear, normal breath sounds, no respiratory distress, + decreased breath sounds (poor respiratory effort, says deep breaths "makes me want to cough") Cardiovascular: no gallop, no murmur, + irregularly irregular Abdomen: normal bowel sounds, non tender, soft Extremities: no pedal edema, + pertinent finding (L BKA, very tender. Wrapped in SERGIO bandage. Right foot deformity.) Neurologic/Psychiatric: alert, normal mood/affect (affect improved today, appears to be in less distress compared to examination yesterday.), oriented x 3 Skin: normal color, warm/dry, no rash (Mago Matias ., PA-C) Laboratory Results Last 24 Hours Test 12/18/16 11:33 12/18/16 11:57 12/18/16 16:00 12/18/16 16:15 Bedside Glucose 215 mg/dl 194 mg/dl Venous Blood pH 7.45 Venous Blood Partial Pressure CO2 42 mmHg Venous Blood Partial Pressure O2 44 mmHg Venous Blood HCO3 29 mmol/L Venous Blood Oxygen Saturation 78.3 % Venous Blood Base Excess 4.0 mmol/L Urine Color YELLOW Urine Appearance CLOUDY Urine pH 5.0 Urine Specific Felt 1.016 Urine Protein 1+ Urine Glucose (UA) NEG Urine Ketones NEG Urine Occult Blood 1+ Urine Nitrite NEG Urine Bilirubin NEG Urine Urobilinogen NEG Urine Leukocyte Esterase NEG Urine WBC (Auto) 1-5 /hpf Urine RBC (Auto) 0-4 /hpf Urine Hyaline Casts (Auto) 5-10 /lpf Urine Epithelial Cells (Auto) 10-20 /lpf Urine Bacteria (Auto) NEG Urine Pathogenic Casts 1-5 GRANULAR CASTS /lpf Urine Yeast (Auto) Test 12/18/16 20:18 12/19/16 05:12 12/19/16 06:28 Bedside Glucose 169 mg/dl 155 mg/dl White Blood Count 6.60 K/uL Red Blood Count 2.91 M/uL Hemoglobin 8.3 g/dL Hematocrit 25.1 % Mean Corpuscular Volume 86.3 fL Mean Corpuscular Hemoglobin 28.5 pg Mean Corpuscular Hemoglobin Concent 33.1 g/dl RDW Standard Deviation 60.9 fL RDW Coefficient of Variation 19.2 % Platelet Count 100 K/uL Mean Platelet Volume 8.4 fL Sodium Level 135 mmol/L Potassium Level 4.1 mmol/L Chloride Level 98 mmol/L Carbon Dioxide Level 29 mmol/L Anion Gap 8.0 mmol/L Blood Urea Nitrogen 16 mg/dl Creatinine 1.10 mg/dl Est Creatinine Clear Calc Drug Dose 51.9 ml/min Estimated GFR () 58.1 Estimated GFR (Non- 50.1 BUN/Creatinine Ratio 14.5 Random Glucose 152 mg/dl Calcium Level 8.2 mg/dl (Mago Matias, QUINTONC) Assessment and Plan 71 y/o female with a history of chronic lower extremity wounds, T2DM, CAD, HTN, diastolic CHF, a.fib, hypothyroidism, COPD, and GERD who presented to the ED with a worsening LLE wound. Left foot ulcer w/LLE cellulitis and left foot osteomyelitis--s/p left BKA on . POD #2 -Admit to telemetry following procedure. Patient rate controlled A. fib overnight with heart rate in 80s to 90s. Transfer to med/surg on 12/19 -ID consulted, appreciate recs: Broaden spectrum due to high post op fevers ( Tmax 39.4C) with IV Zosyn empirically. Can convert Zyvox to PO. Will need abx at least 7 days post op. -Linezolid 600 mg PO BID. Day #2 of 7 postop. -D/C Levaquin -Zosyn IV. Day #2. -Pt. asking for morphine, saying Dilaudid not helping. Dilaudid NANNY BABYSITTER d/c'd -Morphine 2 mg IV q3h -Nausea, will increase to Zofran 4 mg IV q4h prn nausea -Ortho following: OOB to chair today. Continue hemovac, will recheck drainage later today. Ice and elevate LLE. Acute on chronic anemia--stable -Received 2 units PRBCs on 12/16 -Hemoglobin remains stable at 8.3 on 12/19 -Continue to monitor COPD with chronic respiratory failure--stable, saturating at 98% on 3 L -O2 by protocol -Continue Advair 1 puff inh BID, theophylline 600 mg PO qhs, and Spiriva Chronic diastolic CHF--stable -Continue spironolactone 25 mg PO qam and Lasix 20 mg PO qd [id number]--yufq HgbA1c checked on 09/20/16 was 5.3 -Insulin sliding scale -Check BSGs q ac and qhs HTN/a-fib--stable -Continue diltiazem 240 mg PO qam, digoxin 125 mcg PO qd CKD stage 3--baseline creatinine 1.2 -Creatinine 1.4 on 12/17 -Creatinine remains stable and at baseline. 1.1 on 12/19 Hypothyroidism -Continue Synthroid 250 mcg PO qd Congestion, productive cough -Start Mucinex 600 mg PO BID DVT prophylaxis -Enoxaparin 40 mg SC q24h per ortho Code Status -Level V, DO NOT RESUSCITATE Dispo -Pt accepted to [facility], discharge uncertain due to intractable pain This chart was completed in part utilizing [employer] Speech Voice Recognition software. Attempts were made to minimize the grammatical errors, random word insertions, pronoun errors and incomplete sentences. Any formal questions or concerns about the content, text or information contained within the body of this dictation should be directly addressed to the provider for clarification. (Mago Matias ., PA-C) Attending Attestation: Pt seen/examined, chart reviewed, care plan d/w JULI Matias. I agree w/ the andrea components of her documentation. Pt with ongoing LLE pain - throbbing, toothache pain. Nurses report better/more consistent use of dilaudid NANNY BABYSITTER. With that said the patient states "it doesn't help" and requests going to IV morphine. No BM in several days. Despite such patient refused miralax this am. Pt is under the impression she is going to have a 2nd surgery on her left leg (? ). c/o cough but no dyspnea. VSS no fever this AM gen - very anxious, tearful, mild distress when trying to do anything in the bed neck - no JVD heart - irregular lungs - CTA b/l, no rales, mild decrease BS bases abd - soft, NT ext - LLE BKA, dressings in place; right foot w/o edema musculo - foot deformity right foot - no change labs - blood cx's neg BMP stable A/P: s/p left BKA for chronic osteomyelitis/nonhealing wounds left foot/ankle - POD # 2 d/c IV dilaudid - change to IV morphine prn tele stable - d/c such, move patient to med/surg bowel regimen - add dulcolax today extreme anxiety/stress - consider additional meds for this; supportive therapy, etc. left message for son evening of 12/19 Wade Lui MD (Wade Lui MD)
[2016-12-19] MEDS: GUAIFENESIN 600 MG TABCR PO SCH ×2 (10:06→20:36)
[2016-12-19] MEDS ORDERED: BISACODYL 5 MG TABEC PO ONE (11:15)
[2016-12-19] MEDS: MoRPHine SULFATE 2 MG/ML CARP IV PRN ×3 (12:40→20:41)
--- NOTE | 2016-12-19 13:52 | Medical Student: [facility] ---
Med Student Progress Note Date of Service Dec 19, 2016. Subjective Pt evaluation today including: conversation w/ patient, physical exam, lab review, review of studies Pain: 10/10 Voiding: pratt catheter in place 71 year old female with T2DM and chronic lower extremity wounds who is POD#2 of left BKA for LLE osteomyelitis. Patient rates pain 10/10 overnight. She is expressing concerns that "they are going to do more surgery and take more of my leg" despite several attempts of explaining that she will not be having another surgery. Denies chest pain, shortness of breath, abdominal pain, nausea, vomiting, and palpitations. Still has not had a bowel movement in days. She refused her bowel regimen this morning. She has not eaten since the surgery. Patient does not think the METAL SORTER diluadid is helping and wants morphine. Review of Systems Respiratory: + cough, + sputum (white), No shortness of breath Cardiac: No chest pain Abdomen: + constipation, No diarrhea, No nausea, No pain, No vomiting Musculoskeletal: + problem reported (left leg pain 10/10) Objective Vital Signs Date Time Temp Pulse Resp B/P Pulse Ox O2 Delivery O2 Flow Rate FiO2 12/19/16 12:00 98 Nasal Cannula 3.0 12/19/16 11:44 37.0 66 16 126/66 99 Nasal Cannula 12/19/16 10:35 36.9 98 18 135/59 99 Nasal Cannula 3.0 12/19/16 08:23 93 12/19/16 08:00 98 Nasal Cannula 3.0 12/19/16 04:00 Nasal Cannula 3.0 12/19/16 03:54 37.3 86 20 132/71 98 Nasal Cannula 3.0 12/19/16 00:00 36.8 87 20 166/68 97 Nasal Cannula 3.0 12/19/16 00:00 Nasal Cannula 3.0 12/18/16 20:00 Nasal Cannula 3.0 12/18/16 19:48 38.6 94 18 144/65 95 Nasal Cannula 3.0 12/18/16 16:00 Nasal Cannula 3.0 12/18/16 15:37 39.4 99 20 166/68 96 Nasal Cannula 3.0 Physical Exam General Appearance: + severe distress, + obese ENT: hearing grossly normal Neck: no JVD, no carotid bruits Respiratory/Chest: chest non-tender, lungs clear, normal breath sounds, no respiratory distress, no accessory muscle use Cardiovascular: regular rate, rhythm, no murmur, + irregularly irregular, + pertinent finding Abdomen: normal bowel sounds, non tender, soft, no organomegaly Extremities: + pertinent finding (left leg BKA) Neurologic/Psychiatric: alert, oriented x 3, + depressed affect Skin: normal color, warm/dry, no rash Laboratory Results Last 24 Hours Test 12/18/16 16:00 12/18/16 16:15 12/18/16 20:18 12/19/16 05:12 Urine Color YELLOW Urine Appearance CLOUDY Urine pH 5.0 Urine Specific Roland 1.016 Urine Protein 1+ Urine Glucose (UA) NEG Urine Ketones NEG Urine Occult Blood 1+ Urine Nitrite NEG Urine Bilirubin NEG Urine Urobilinogen NEG Urine Leukocyte Esterase NEG Urine WBC (Auto) 1-5 /hpf Urine RBC (Auto) 0-4 /hpf Urine Hyaline Casts (Auto) 5-10 /lpf Urine Epithelial Cells (Auto) 10-20 /lpf Urine Bacteria (Auto) NEG Urine Pathogenic Casts 1-5 GRANULAR CASTS /lpf Urine Yeast (Auto) Bedside Glucose 194 mg/dl 169 mg/dl White Blood Count 6.60 K/uL Red Blood Count 2.91 M/uL Hemoglobin 8.3 g/dL Hematocrit 25.1 % Mean Corpuscular Volume 86.3 fL Mean Corpuscular Hemoglobin 28.5 pg Mean Corpuscular Hemoglobin Concent 33.1 g/dl RDW Standard Deviation 60.9 fL RDW Coefficient of Variation 19.2 % Platelet Count 100 K/uL Mean Platelet Volume 8.4 fL Sodium Level 135 mmol/L Potassium Level 4.1 mmol/L Chloride Level 98 mmol/L Carbon Dioxide Level 29 mmol/L Anion Gap 8.0 mmol/L Blood Urea Nitrogen 16 mg/dl Creatinine 1.10 mg/dl Est Creatinine Clear Calc Drug Dose 51.9 ml/min Estimated GFR () 58.1 Estimated GFR (Non- 50.1 BUN/Creatinine Ratio 14.5 Random Glucose 152 mg/dl Calcium Level 8.2 mg/dl Test 12/19/16 06:28 12/19/16 11:10 Bedside Glucose 155 mg/dl 159 mg/dl Assessment and Plan Assessment and Plan: ASSESSMENT 71 year old female with chronic lower extremity wounds and T2DM, POD#2 left BKA. Pain is unchanged. Patient has used METAL SORTER inconsistently over last 36 hours. Will discontinue and start on IV morphine. Patient has been stable on monitor and will be moved off telemetry today. She needs to get OOB to chair today if tolerated. Constipation has been going on for about a week. Nurse says patient refused bowel regimen this morning. PLAN 1) Left foot osteomyelitis s/p left BKA POD#2. -Patient has been stable on the monitor overnight. Afib is rate controlled with heart rate in 80-90s. Transfer to med/surg today. -Zosyn started on 12/18 for boarden spectrum coverage due to 39.4C temperature yesterday post-op. Can be switched to PO Zyvox. Continue antibiotics for total of 7 days. -Levaquin D/C on 12/18. -linezolid 600mg PO BID. Day #2 of 7 post-op -D/C METAL SORTER diluadid. -Start IV morphine 2mg q3 hours. -Ortho wants OOB to chair today. -Recheck hemovac today. 2) Acute on chronic anemia -Received 2 units PRBCs on 12/16 -Hemoglobin stable at 8.3 -Continue to monitor 3) COPD -saturating at 98% on 3 L -Continue Advair 1 puff inh BID, theophylline 600 mg PO qhs, and Spiriva 4) Chronic diastolic CHF -Continue spironolactone 25 mg PO qam and Lasix 20 mg PO qd 5) T2DM -HgbA1c on 09/20/16 was 5.3 -Insulin sliding scale -Check BSG q ac and q hs 6) HTN and a-fib -Continue diltiazem 240 mg PO qam, digoxin 125 mcg PO qd 7) CKD stage 3 -Creatinine 1.4, stable at baseline 8) Hypothyroidism -Continue Synthroid 250 mcg PO qd 9) Productive cough -Start Mucinex 600 mg PO BID 10) DVT prophylaxis -Enoxaparin 40 mg SC q24h per ortho 11) Code Status -Level V, DNR 12) Discharge plans -Patient accepted to [facility] -Plans are uncertain due to intractable pain Continued [facility] stay due to: inadequate oral pain control, ambulation difficulties, multiple IV medications needed, other (left BKA) Discharge planning: uncertain
--- NOTE | 2016-12-19 17:55 | PROGRESS NOTE ---
DATE: 12/19/2016 SUBJECTIVE: Valery is sleeping. She is easily arousable. She complains of pain in her residual left limb. Her dressing shows a little bit of spotting of blood. She is afebrile. Her vital signs are stable. Her blood cultures are negative. Hematocrit 25, white count 7 and platelets 100. PRP is noted. PLAN: Continue Lovenox for DVT prophylaxis, try to mobilize her to get out of bed to chair. I think due to the amount of pain she has been having in her residual limb, it would be best to hold on any type of compressive stump mica laminating machine feeder for now. Will continue to monitor.
[2016-12-19] MEDS: BOOST GLUCOSE CONTROL PO SCH (17:59)
[2016-12-19] MEDS: THEOPHYLLINE 300MG EXTENDED REL TAB PO SCH (20:36)
[2016-12-20] MEDS: PIPERACILL/TAZOBAC IV 4.5 GM in DEXTROSE 5% 100ML IV SCH ×2 (00:38→10:39)
[2016-12-20] MEDS: MoRPHine SULFATE 2 MG/ML CARP IV PRN ×3 (03:11→12:16)
[2016-12-20] MEDS: LEVOTHYROXINE SODIUM PO SCH ×2 (06:04)
[2016-12-20 07:06] VITALS: BP 139/64; PULSE 88; TEMP 36.5; O2SAT 100
[2016-12-20 07:25] LABS: HEMATOCRIT 23.5 % (37-47); MEAN CELL VOLUME 86.7 fL (80-100); MEAN CORPUSCULAR HEMOGLOBIN 28.4 pg (25-34); MEAN CORPUSCULAR HGB CONC 32.8 g/dl (32-36); RED BLOOD COUNT 2.71 M/uL (4.2-5.4); WHITE BLOOD COUNT 4.68 K/uL (4.8-10.8)
[2016-12-20 07:54] LABS: BUN/CREATININE RATIO 15.6 (10-20); CALCIUM 8.2 mg/dl (8.5-10.1); POTASSIUM 3.9 mmol/L (3.5-5.1)
[2016-12-20 08:04] LABS: MEAN PLATELET VOLUME 8.4 fL (7.4-10.4); PLATELET COUNT 80 K/uL (130-400); PLT ESTIMATE DECREASED
[2016-12-20] MEDS: LINEZOLID 600 MG TAB PO SCH ×2 (08:50→21:43)
[2016-12-20] MEDS: PANTOprazole SOD 40 MG TAB PO SCH (08:51)
[2016-12-20] MEDS: FUROSEMIDE 20 MG TAB PO SCH (08:51)
[2016-12-20] MEDS: GUAIFENESIN 600 MG TABCR PO SCH ×2 (08:51→21:44)
[2016-12-20] MEDS: FLUTICASONE/SALMETEROL 250/50 (ADVAIR) 14 PUFF/1 INHALER INH SCH ×2 (08:51→21:41)
--- NOTE | 2016-12-20 08:51 | Orthopedic Progress Note ---
Orthopedic Progress Note Date of Service Dec 20, 2016. Subjective Post OP Day: 3 Denies: SOB, chest pain, light headedness, nausea / vomiting Additional Notes: Complaining of pain in the left leg all the time; requesting pain medication Objective N/V intact, incision C/D/I, A&O x3 Dressings soaked with blood, not changed since yesterday AM. Dressings removed , no active bleeding. Suspect drainage from hemovac sites yesterday. Sutures intact, minimal swelling of stump. Minimal redness, cap refill brisk. New dressings applied. No ecchymosis. Date Time Temp Pulse Resp B/P Pulse Ox O2 Delivery O2 Flow Rate FiO2 12/20/16 07:06 36.5 88 21 139/64 100 Room Air 12/19/16 23:30 Nasal Cannula 3.0 Humidified Oxygen 12/19/16 23:10 37.1 96 15 133/60 99 Nasal Cannula 3.0 Humidified Oxygen 12/19/16 19:30 Nasal Cannula 3.0 Humidified Oxygen 12/19/16 16:46 Nasal Cannula 3.0 Humidified Oxygen 12/19/16 16:24 37.2 88 20 128/67 98 Nasal Cannula 3.0 Humidified Oxygen 12/19/16 14:54 Nasal Cannula 3.0 12/19/16 12:00 98 Nasal Cannula 3.0 12/19/16 11:44 37.0 66 16 126/66 99 Nasal Cannula 12/19/16 10:35 36.9 98 18 135/59 99 Nasal Cannula 3.0 Laboratory Results 24 Hours: Test 12/20/16 07:14 Hematocrit 23.5 % Hemoglobin 7.7 g/dL Assessment & Plan Assessment: Left foot chronic osteomyelitis, diabetic foot ulcer, charcot arthropathy POD 3 left lower extremity below knee amputation Plan: OOB to chair today. Dressings changed today. Continue daily/PRN dressing changes. Reinforce dressings as needed. Ice and Elevate left lower extremity Pain management as per medicine. Regular Diabetic diet as ordered Will continue to follow. Will discuss findings with Dr. Ute Magallanes for DVT prophylaxis. Disposition pending per SS/Case Management. Discharge Planning Discharge Planning: custodial facility
[2016-12-20] MEDS: FERROUS GLUCONATE 324 MG TAB PO SCH (08:53)
[2016-12-20] MEDS: DIGOXIN 0.125 MG TAB PO SCH (08:53)
[2016-12-20] MEDS: TIOTROPIUM BROMIDE 5 PUFF/90 MCG INH INH SCH (08:54)
[2016-12-20] MEDS: POTASSIUM CHLORIDE 20 MEQ TABCR PO SCH (08:54)
[2016-12-20] MEDS: LACTOBACILLUS ACIDOPHILUS (FLORANEX) TAB PO SCH ×3 (08:55→18:29)
[2016-12-20] MEDS: ENOXAPARIN 40 MG/0.4 ML SYR SQ SCH (08:56)
[2016-12-20] MEDS: MAGNESIUM OXIDE 400 MG TAB PO SCH ×2 (08:56→21:44)
[2016-12-20] MEDS: POLYETHYLENE (MIRALAX) 17 GM PACK PO SCH ×2 (08:56→21:42)
[2016-12-20] MEDS: EUCERIN CR 120 GM JAR EXT SCH ×2 (08:57→21:41)
[2016-12-20] MEDS: SPIRONOLACTONE 25 MG TAB PO SCH (08:57)
[2016-12-20] MEDS: BOOST GLUCOSE CONTROL PO SCH ×2 (08:57→18:26)
[2016-12-20] MEDS: GABAPENTIN 300 MG CAP PO SCH ×2 (09:02→21:42)
[2016-12-20] MEDS: INSULIN ASPART 100 UNITS/ML 3 ML PEN SC SCH ×4 (09:37→21:44)
[2016-12-20] MEDS: TRAMADOL HCL 50 MG TAB PO PRN ×2 (09:38→20:09)
[2016-12-20] MEDS: ONDANSETRON INJ 2 MG/ML 2 ML VIAL IV PRN ×2 (10:39→20:08)
--- NOTE | 2016-12-20 11:12 | Infectious Disease Progress Nt ---
Progress Note Date of Service Dec 20, 2016. Subjective Pt evaluation today including: conversation w/ patient, physical exam, chart review, lab review, review of studies, conversation w/ information systems consultant (Dr. Swain), review of inpatient medication list WBC count 4.68 today. Platelets are decreased today to 80. Creatinine stable at 1.00. She has been afebrile. I discussed this patient with Dr. Swain. She continues to have severe pain of the left stump that is shooting up her leg. She states that this is not well controlled on current therapy. All Other Systems: Reviewed and Negative Medications Current Inpatient Medications Medications (Trade) Dose Ordered Sig/Hans Route Start Time Stop Time Status Last Admin Dose Admin Acetaminophen (Tylenol Tab) 650 mg Q4H PRN PO 12/13/16 18:15 01/12/17 18:14 12/18/16 15:57 650 MG Al Hydrox/Mg Hydrox/Simethicone (Maalox Max Susp) 15 ml Q4H PRN PO 12/13/16 18:15 01/12/17 18:14 Magnesium Hydroxide (Milk Of Magnesia Susp) 30 ml Q6H PRN PO 12/13/16 18:15 01/12/17 18:14 Digoxin (Lanoxin Tab) 0.125 mg QAM PO 12/14/16 09:00 01/13/17 08:59 12/20/16 08:53 0.125 MG Ferrous Gluconate (Ferrous Gluconate Tab) 324 mg DAILY PO 12/14/16 09:00 01/13/17 08:59 12/20/16 08:53 324 MG Salmeterol Xinafoate/ Fluticasone (Advair Diskus 250/50 Inh) 1 puff BID INH 12/13/16 21:00 01/12/17 20:59 12/20/16 08:51 1 PUFF Furosemide (Lasix Tab) 20 mg DAILY PO 12/14/16 09:00 01/13/17 08:59 12/20/16 08:51 20 MG Acetaminophen/ Hydrocodone Bitart (Brohard 5/325 Tab) 1 tab Q6H PRN PO 12/13/16 18:15 12/27/16 18:14 12/19/16 23:45 1 TAB Lactobacillus Acidophilus (Floranex Tab) 2 tab TIDM PO 12/14/16 08:30 01/13/17 08:29 12/20/16 08:55 2 TAB Magnesium Oxide (Mag-Ox Tab) 400 mg BID PO 12/13/16 21:00 01/12/17 20:59 12/20/16 08:56 400 MG Nitroglycerin (Nitrostat Tab) 0.4 mg DAILY PRN SL 12/13/16 18:15 01/12/17 18:14 Potassium Chloride (Klor-Con Tab) 20 meq DAILY PO 12/14/16 09:00 01/13/17 08:59 12/20/16 08:54 20 MEQ Spironolactone (Aldactone Tab) 25 mg QAM PO 12/14/16 09:00 01/13/17 08:59 12/20/16 08:57 25 MG Theophylline (Paul-Dur Extended Rel Tab) 600 mg HS PO 12/13/16 21:00 01/12/17 20:59 12/19/16 20:36 600 MG Tiotropium Dermott (Spiriva Handihaler Inhaler) 1 puff DAILY INH 12/14/16 09:00 01/13/17 08:59 12/20/16 08:54 1 PUFF Tramadol HCl (Ultram Tab) 50 mg Q8H PRN PO 12/13/16 18:15 01/12/17 18:14 12/20/16 09:38 50 MG Multi-Ingredient Ointment (Eucerin Unscented Cr) 1 appln BID EXT 12/13/16 21:00 01/12/17 20:59 12/20/16 08:57 1 APPLN Pantoprazole Sodium (Protonix Tab) 40 mg QAM PO 12/14/16 09:00 01/13/17 08:59 12/20/16 08:51 40 MG Levothyroxine Sodium/ Levothyroxine Sodium (Synthroid Tab/ Synthroid Tab) 250 mcg DAILYBB PO 12/14/16 06:00 01/13/17 05:59 12/20/16 06:04 250 MCG Glucose (Glucose 40% Gel) 15-30 GRAMS 15 GRAMS... UD PRN PO 12/14/16 19:00 01/13/17 18:59 Glucose (Glucose Chew Tab) 4-8 Tablets 4 Tabl... UD PRN PO 12/14/16 19:00 01/13/17 18:59 Dextrose (Dextrose 50% 50ML Syringe) 25-50ML OF 50% DW IV FOR... UD PRN IV 12/14/16 19:00 01/13/17 18:59 Glucagon (Glucagon Inj) 1 mg UD PRN SQ 12/14/16 19:00 01/13/17 18:59 Sodium Chloride (Fleming Nasal Hettick) 1 sprays QID PRN NA 12/15/16 12:45 01/14/17 12:44 Polyethylene (Miralax Powder Packet) 17 gm BID PO 12/16/16 09:30 01/15/17 09:29 12/20/16 08:56 17 GM Enoxaparin Sodium (Lovenox Inj) 40 mg Q24H SQ 12/18/16 09:00 01/17/17 08:59 12/20/16 08:56 40 MG Miscellaneous Information (Pharmacy Consult) 1 ea UD N/A 12/17/16 18:05 01/16/17 18:04 Insulin Aspart (novoLOG ASPART) SLIDING SCALE G... ACHS SC 12/18/16 07:00 01/17/17 06:59 12/18/16 21:01 1 UNITS Gabapentin (Neurontin Cap) 300 mg BID PO 12/18/16 09:00 01/17/17 08:59 12/20/16 09:02 300 MG Linezolid (Zyvox Tab) 600 mg BID PO 12/18/16 18:00 12/24/16 23:59 12/20/16 08:50 600 MG Piperacillin Sod/ Tazobactam Sod 1 ea 1 ea UD PRN N/A 12/18/16 17:30 01/17/17 17:29 Piperacillin Sod/ Tazobactam Sod/ Dextrose (Zosyn Iv/D5 100ml) 120 ml @ 30 mls/hr Q8H IV 12/19/16 00:00 12/20/16 23:59 12/20/16 10:39 30 MLS/HR Ondansetron HCl (Zofran Inj) 4 mg Q4H PRN IV 12/19/16 08:45 01/18/17 08:44 12/20/16 10:39 4 MG Guaifenesin (Mucinex Contr Rel Tab) 600 mg Q12 PO 12/19/16 09:00 5/13/17 08:59 12/20/16 08:51 600 MG Enteral Nutritional Formula (Boost Glucose Control) 1 can BIDM PO 12/19/16 16:45 01/18/17 16:44 12/20/16 08:57 1 CAN Morphine Sulfate (MoRPHine SULFATE INJ) 4 mg Q4H PRN IV 12/19/16 16:00 01/02/17 15:59 12/20/16 08:42 4 MG Objective Vital Signs Date Time Temp Pulse Resp B/P Pulse Ox O2 Delivery O2 Flow Rate FiO2 12/20/16 08:53 81 12/20/16 08:45 Humidified Oxygen 12/20/16 07:06 36.5 88 21 139/64 100 Room Air 12/19/16 23:30 Nasal Cannula 3.0 Humidified Oxygen 12/19/16 23:10 37.1 96 15 133/60 99 Nasal Cannula 3.0 Humidified Oxygen 12/19/16 19:30 Nasal Cannula 3.0 Humidified Oxygen 12/19/16 16:46 Nasal Cannula 3.0 Humidified Oxygen 12/19/16 16:24 37.2 88 20 128/67 98 Nasal Cannula 3.0 Humidified Oxygen 12/19/16 14:54 Nasal Cannula 3.0 12/19/16 12:00 98 Nasal Cannula 3.0 12/19/16 11:44 37.0 66 16 126/66 99 Nasal Cannula Physical Exam General Appearance: WD/WN, no apparent distress Eyes: normal inspection, sclerae normal ENT: hearing grossly normal Neck: supple, trachea midline Respiratory/Chest: no respiratory distress, no accessory muscle use Cardiovascular: + pertinent finding (regular rate) Extremities: + pertinent finding (left BKA with dressing in place- C/D/I) Neurologic/Psychiatric: alert, normal mood/affect, oriented x 3 Skin: normal color, warm/dry, no rash Laboratory Results Item Value Date Time Blood Culture - Preliminary Resulted 12/18/16 1628 Blood NO GROWTH TO DATE. Blood Culture - Preliminary Resulted 12/18/16 1625 Blood NO GROWTH TO DATE. Urine Culture - Final Complete 12/18/16 1600 Urine,Catheterized NO GROWTH - LESS THAN 1,000 COLONIES/ML Last 24 Hours Test 12/19/16 11:10 12/19/16 17:12 12/19/16 20:42 12/20/16 07:14 Bedside Glucose 159 mg/dl 132 mg/dl 126 mg/dl White Blood Count 4.68 K/uL Red Blood Count 2.71 M/uL Hemoglobin 7.7 g/dL Hematocrit 23.5 % Mean Corpuscular Volume 86.7 fL Mean Corpuscular Hemoglobin 28.4 pg Mean Corpuscular Hemoglobin Concent 32.8 g/dl RDW Standard Deviation 60.3 fL RDW Coefficient of Variation 18.9 % Platelet Count 80 K/uL Mean Platelet Volume 8.4 fL Platelet Estimate DECREASED Sodium Level 137 mmol/L Potassium Level 3.9 mmol/L Chloride Level 100 mmol/L Carbon Dioxide Level 31 mmol/L Anion Gap 6.0 mmol/L Blood Urea Nitrogen 16 mg/dl Creatinine 1.00 mg/dl Est Creatinine Clear Calc Drug Dose 57.1 ml/min Estimated GFR () 65.2 Estimated GFR (Non- 56.2 BUN/Creatinine Ratio 15.6 Random Glucose 108 mg/dl Calcium Level 8.2 mg/dl Test 12/20/16 08:21 Bedside Glucose 118 mg/dl Assessment and Plan Diabetic female with chronic left lower extremity wounds and underlying osteomyelitis now s/p left BKA. Currently the patient is on IV Zosyn and Linezolid. Feel that she likely could transition to PO Zyvox and Levaquin, and she likely will only need a few more days of antibiotic therapy pending healing of her wound. Case reviewed and agree with above assessment.
--- NOTE | 2016-12-20 11:35 | Hospitalist Progress Note ---
Hospitalist Progress Note Date of Service Dec 20, 2016. (Tamara Rizo PA-C) Subjective Pt evaluation today including: conversation w/ patient, physical exam, chart review, lab review, review of studies, review of inpatient medication list Patient continues to complain of left lower extremity pain. It is particularly bad when she tries to move the leg. She denies any fever or chills. She is also complaining of nausea. She denies any abdominal pain. She has been having regular bowel movements. Additional Comments: 6 system review negative. Please see pertinent positives in the history of present illness section. (Tamara Rizo PA-C) Objective Vital Signs Date Time Temp Pulse Resp B/P Pulse Ox O2 Delivery O2 Flow Rate FiO2 12/20/16 08:53 81 12/20/16 08:45 Humidified Oxygen 12/20/16 07:06 36.5 88 21 139/64 100 Room Air 12/19/16 23:30 Nasal Cannula 3.0 Humidified Oxygen 12/19/16 23:10 37.1 96 15 133/60 99 Nasal Cannula 3.0 Humidified Oxygen 12/19/16 19:30 Nasal Cannula 3.0 Humidified Oxygen 12/19/16 16:46 Nasal Cannula 3.0 Humidified Oxygen 12/19/16 16:24 37.2 88 20 128/67 98 Nasal Cannula 3.0 Humidified Oxygen 12/19/16 14:54 Nasal Cannula 3.0 12/19/16 12:00 98 Nasal Cannula 3.0 12/19/16 11:44 37.0 66 16 126/66 99 Nasal Cannula (Tamara Rizo PA-C) Physical Exam General Appearance: + mild distress (in mild discomfort. Anxious in appearance.) Eyes: EOMI Neck: no JVD Respiratory/Chest: + pertinent finding (mild wheeze noted bilaterally. No crackles or rhonchi.) Cardiovascular: + pertinent finding (occasionally irregular. Systolic murmur noted.) Abdomen: normal bowel sounds, non tender, soft Extremities: + pertinent finding (dressing on left lower extremity is clean, dry and intact) Neurologic/Psychiatric: no motor/sensory deficits, oriented x 3 Skin: warm/dry (Tamara Rizo PA-C) Laboratory Results 12/20/16 07:14 12/20/16 07:14 Test 12/20/16 07:14 12/20/16 08:21 Red Blood Count 2.71 M/uL (4.2-5.4) Mean Corpuscular Volume 86.7 fL (80-100) Mean Corpuscular Hemoglobin 28.4 pg (25-34) Mean Corpuscular Hemoglobin Concent 32.8 g/dl (32-36) RDW Standard Deviation 60.3 fL (36.4-46.3) RDW Coefficient of Variation 18.9 % (11.5-14.5) Mean Platelet Volume 8.4 fL (7.4-10.4) Platelet Estimate DECREASED Anion Gap 6.0 mmol/L (3-11) Est Creatinine Clear Calc Drug Dose 57.1 ml/min Estimated GFR () 65.2 Estimated GFR (Non- 56.2 BUN/Creatinine Ratio 15.6 (10-20) Calcium Level 8.2 mg/dl (8.5-10.1) Bedside Glucose 118 mg/dl (70-90) Last 24 Hours Test 12/19/16 17:12 12/19/16 20:42 12/20/16 07:14 12/20/16 08:21 Bedside Glucose 132 mg/dl 126 mg/dl 118 mg/dl White Blood Count 4.68 K/uL Red Blood Count 2.71 M/uL Hemoglobin 7.7 g/dL Hematocrit 23.5 % Mean Corpuscular Volume 86.7 fL Mean Corpuscular Hemoglobin 28.4 pg Mean Corpuscular Hemoglobin Concent 32.8 g/dl RDW Standard Deviation 60.3 fL RDW Coefficient of Variation 18.9 % Platelet Count 80 K/uL Mean Platelet Volume 8.4 fL Platelet Estimate DECREASED Sodium Level 137 mmol/L Potassium Level 3.9 mmol/L Chloride Level 100 mmol/L Carbon Dioxide Level 31 mmol/L Anion Gap 6.0 mmol/L Blood Urea Nitrogen 16 mg/dl Creatinine 1.00 mg/dl Est Creatinine Clear Calc Drug Dose 57.1 ml/min Estimated GFR () 65.2 Estimated GFR (Non- 56.2 BUN/Creatinine Ratio 15.6 Random Glucose 108 mg/dl Calcium Level 8.2 mg/dl (Tamara Rizo, NORA) Assessment and Plan 71 y/o female with a history of chronic lower extremity wounds, T2DM, CAD, HTN, diastolic CHF, a.fib, hypothyroidism, COPD, and GERD who presented to the ED with a worsening LLE wound. Left foot ulcer w/LLE cellulitis and left foot osteomyelitis--s/p left BKA on . POD #3 -Admitted to telemetry following procedure. Patient rate controlled A. fib overnight with heart rate in 80s to 90s. Transfer to med/surg on 12/19 -change abx to PO Zyvox and Levaquin today. ID following. -Needs to get out of bed into a chair today. -Continue morphine 2 mg IV every 3 hours as needed for pain Pain/Anxiety-seems her anxiety is exacerbating her pain and nausea -Begin Ativan 0.5 twice daily as needed Nausea-No signs of ileus/bowel obstruction -Continue Zofran 4 mg IV every 4 hours -Also add Phenergan 12.5 mg IV every 6 hours Acute on chronic anemia-Hgb dropped today at 7.7 -Received 2 units PRBCs on 12/16 -Check H&H in the AM COPD with chronic respiratory failure--stable -Continue Advair 1 puff inh BID, theophylline 600 mg PO qhs, and Spiriva Chronic diastolic CHF--stable -Continue spironolactone 25 mg PO qam and Lasix 20 mg PO qd N4DP--tdjp HgbA1c checked on 09/20/16 was 5.3. BSGs stable -Insulin sliding scale -Check BSGs q ac and qhs HTN/a-fib-rate controlled -Continue diltiazem 240 mg PO qam, digoxin 125 mcg PO qd CKD stage 3--baseline creatinine 1.2 -stable Hypothyroidism -Continue Synthroid 250 mcg PO qd DVT prophylaxis -Enoxaparin 40 mg SC q24h per ortho Code Status -Level V, DO NOT RESUSCITATE Dispo -Pt accepted to [facility], discharge uncertain due to intractable pain (Tamara Rizo PAPerfectoC) Attending Attestation: Pt seen/examined, chart reviewed, care plan d/w JULI Rizo. I agree w/ the andrea components of her documentation. c/o pain in left leg from the knee down to the edge of the stump. morphine "helps" but only lasts about 1 hour. appetite is poor. passing flatus but only had a small BM yesterday. VSS afebrile gen - more calm today, not tearful, appears to be in less distress neck - no JVD heart - irregular lungs - CTA b/l abd - soft, NT, mild distension ext - LLE BKA, dressings in place; right foot w/o edema musculo - foot deformity right foot - no change labs - blood cx's neg BMP stable with normal Cr A/P: 1. s/p left BKA for chronic osteomyelitis/nonhealing wounds left foot/ankle - POD #3 2. uncontrolled pain - combination of visceral pain from the surgery and neuropathic pain/phantom limb. recommend scheduled tylenol 1gm TID; toradol 30mg IV q6h x 3 doses; increase morphine to 4mg q3h prn. 3. anorexia - check KUB x-ray, r/o ileus or severe constipation. cont miralax ; add scheduled dulcolax by mouth. 4. chronic resp failure - stable on home O2 amount. 5. anxiety, acute stress - consider SSRI or effexor if symptoms persist. 6. acute/chronic anemia - hemodynamically stable; follow another day. if Hb drops to <7.5 then Tx again. cbc AM. son & both updated at bedside today Wade Lui MD (Wade Lui MD)
[2016-12-20] MEDS ORDERED: PROMETHAZINE HCL INJ 12.5 MG in SODIUM CHLORIDE 0.9% 50ML 50 ML IV PRN (11:45)
[2016-12-20] MEDS: LEVOFLOXACIN 750 MG TAB PO SCH (13:16)
[2016-12-20] MEDS: HYDROCODONE/ACETAMOPHEN 5/325MG TAB PO PRN (13:18)
[2016-12-20] MEDS ORDERED: LEVOFLOXACIN CONSULT ACTIVE PRN (13:45)
[2016-12-20] MEDS: ACETAMINOPHEN 325 MG TAB PO PRN (15:12)
[2016-12-20 15:31] VITALS: BP 132/70; PULSE 92; TEMP 36.9; O2SAT 100
[2016-12-20] MEDS: KETOROLAC TROMETHAMINE 15 MG/ML VIAL IV. SCH ×2 (17:14→22:45)
[2016-12-20] MEDS: ACETAMINOPHEN 500 MG TAB PO SCH ×2 (17:14→23:42)
--- NOTE | 2016-12-20 17:54 | PROGRESS NOTE ---
DATE: 12/20/2016 SUBJECTIVE: The patient is resting in bed. She is in pain in her left leg. Her dressing is clean and dry and has been changed by the PA earlier today with no noted abnormal findings. She is afebrile. Her vital signs are stable. She may be transferred to [facility]. White count is 4, hemoglobin 8, hematocrit 24, platelets are 80. PRP is noted. She is afebrile. Her dressing is clean and dry. I spoke with she and her family. She does have a special shoe that she uses on her right leg. She could use this shoe assistance and pivot transfer, weightbearing as tolerated on the right leg, to get out of bed with assistance and sit in the chair. She should at least be sitting upright at the edge of the bed. I think, due to her degree of discomfort that use of the stump retail coverage merchandiser lead at this point is probably not beneficial. When her comfort increases, we can attempt to get her fitted with a stump retail coverage merchandiser lead. She may not be a candidate for prosthetic. Will need to coordinate with prosthetics and orthotics. If she is having pain issues, consultation with the acute pain service may be of benefit. We will continue to monitor. She is orthopedically stable for discharge at any time. She should follow up in my office 2 weeks after surgery for a wound check. JOSE
[2016-12-20] MEDS ORDERED: BISACODYL 5 MG TABEC PO ONE (18:45)
--- NOTE | 2016-12-20 20:00 | DIAGNOSTIC IMAGING REPORT ---
KUB CLINICAL HISTORY: Generalized abdominal pain. FINDINGS: An AP, portable, supine abdominal radiograph is correlated with abdominal CT dated 09/19/2016. There is a nonobstructed abdominal bowel gas pattern. No evidence of intraperitoneal free air is seen on this supine view. There are no abnormal abdominal calcifications. Cholecystectomy clips are identified. Large phleboliths are identified in the pelvis. The skeletal structures are osteopenic. Lumbosacral spondylosis is observed. The bony pelvis is intact as visualized. IMPRESSION: Nonobstructed abdominal bowel gas pattern. Electronically signed by: Rahul Early M.D. 12/20/2016 7:58 PM Dictated Date/Time: 12/20/2016 7:57 PM
[2016-12-20] MEDS: DOCUSATE SODIUM 100 MG CAP PO SCH (21:41)
[2016-12-20] MEDS: THEOPHYLLINE 300MG EXTENDED REL TAB PO SCH (21:43)
[2016-12-20 23:28] VITALS: BP 117/65; PULSE 102; TEMP 36.5; O2SAT 100
[2016-12-21] VITALS (22 sets, daily range): BP systolic 108–157; BP diastolic 54–85; PULSE 88–102; TEMP 36.4–37; O2SAT 98–100
[2016-12-21] MEDS: TRAMADOL HCL 50 MG TAB PO PRN ×2 (04:07→22:01)
[2016-12-21] MEDS: KETOROLAC TROMETHAMINE 15 MG/ML VIAL IV. SCH (04:07)
[2016-12-21] MEDS: LORAZEPAM 0.5 MG TAB PO PRN (04:11)
[2016-12-21] MEDS: LEVOTHYROXINE SODIUM PO SCH ×2 (06:01)
[2016-12-21 06:38] LABS: HEMATOCRIT 21.9 % (37-47); MEAN CELL VOLUME 86.9 fL (80-100); MEAN CORPUSCULAR HEMOGLOBIN 28.6 pg (25-34); MEAN CORPUSCULAR HGB CONC 32.9 g/dl (32-36); RED BLOOD COUNT 2.52 M/uL (4.2-5.4); WHITE BLOOD COUNT 3.15 K/uL (4.8-10.8)
[2016-12-21 06:41] LABS: MEAN PLATELET VOLUME 8.5 fL (7.4-10.4); PLATELET COUNT 88 K/uL (130-400)
[2016-12-21 07:07] LABS: COMPLETE YES; EOS % 2.5 %; LYMPH % 13.7 %; LYMPH ABS # 0.43 K/uL (1.2-3.4); MONO % 8.6 %; NEUT % 75.2 %
[2016-12-21] MEDS: INSULIN ASPART 100 UNITS/ML 3 ML PEN SC SCH ×4 (08:00→20:41)
[2016-12-21] MEDS: DULOXETINE HCL 20 MG CAP PO SCH (09:00)
--- NOTE | 2016-12-21 09:03 | DIAGNOSTIC IMAGING REPORT ---
HEAD CT NONCONTRAST CT DOSE: 537.48 mGy.cm HISTORY: numbness R side of her body r/o CVA TECHNIQUE: Multiaxial CT images of the head were performed without the use of intravenous contrast. Automated exposure control was utilized for this study. Comparison: Head CT 09/19/2016. Findings: Trace fluid within the right maxillary sinus. The mastoid air cells are clear. The calvarium and skull base are intact. There is no mass, hematoma, midline shift, acute infarct. White matter hypodensity is nonspecific but suggestive of microvascular ischemic change. The ventricles and sulci demonstrate mild age-related involutional changes. Impression: No acute intracranial abnormality. Electronically signed by: Alexander Herman M.D. 12/21/2016 9:01 AM Dictated Date/Time: 12/21/2016 8:57 AM
[2016-12-21] MEDS: MoRPHine SULFATE 4 MG/ML 1 ML CARP\\VIAL IV PRN (09:06)
[2016-12-21] MEDS: LACTOBACILLUS ACIDOPHILUS (FLORANEX) TAB PO SCH ×3 (09:11→17:13)
[2016-12-21] MEDS: TIOTROPIUM BROMIDE 5 PUFF/90 MCG INH INH SCH (09:12)
[2016-12-21] MEDS: EUCERIN CR 120 GM JAR EXT SCH ×2 (09:12→20:31)
[2016-12-21] MEDS: FLUTICASONE/SALMETEROL 250/50 (ADVAIR) 14 PUFF/1 INHALER INH SCH ×2 (09:12→21:30)
[2016-12-21] MEDS: SPIRONOLACTONE 25 MG TAB PO SCH (09:14)
[2016-12-21] MEDS: DOCUSATE SODIUM 100 MG CAP PO SCH ×2 (09:15→20:32)
[2016-12-21] MEDS: BISACODYL 5 MG TABEC PO SCH (09:15)
[2016-12-21] MEDS: FERROUS GLUCONATE 324 MG TAB PO SCH (09:16)
[2016-12-21] MEDS: POTASSIUM CHLORIDE 20 MEQ TABCR PO SCH (09:16)
[2016-12-21] MEDS: DIGOXIN 0.125 MG TAB PO SCH (09:17)
[2016-12-21] MEDS: MAGNESIUM OXIDE 400 MG TAB PO SCH ×2 (09:18→20:31)
[2016-12-21] MEDS: FUROSEMIDE 20 MG TAB PO SCH (09:18)
[2016-12-21] MEDS: POLYETHYLENE (MIRALAX) 17 GM PACK PO SCH ×2 (09:19→20:33)
[2016-12-21] MEDS: GABAPENTIN 300 MG CAP PO SCH ×2 (09:19→20:32)
[2016-12-21] MEDS: GUAIFENESIN 600 MG TABCR PO SCH ×2 (09:19→20:32)
[2016-12-21] MEDS: PANTOprazole SOD 40 MG TAB PO SCH (09:19)
[2016-12-21] MEDS: LINEZOLID 600 MG TAB PO SCH ×2 (09:20→20:32)
[2016-12-21] MEDS: ACETAMINOPHEN 500 MG TAB PO SCH ×2 (09:20→17:12)
[2016-12-21] MEDS: ENOXAPARIN 40 MG/0.4 ML SYR SQ SCH (09:21)
[2016-12-21] MEDS: BOOST GLUCOSE CONTROL PO SCH ×2 (09:21→16:45)
[2016-12-21] MEDS ORDERED: LORAZEPAM INJ 0.5 MG in SYRINGE 0.25 ML IV PRN (09:46)
[2016-12-21] MEDS ORDERED: ASPIRIN 300 MG SUPP PR ONE (10:00)
[2016-12-21] MEDS ORDERED: LORAZEPAM INJ 0.5 MG in SYRINGE 0.25 ML IV SCH (10:15)
--- NOTE | 2016-12-21 10:39 | Hospitalist Progress Note ---
Hospitalist Progress Note Date of Service Dec 21, 2016. (Tamara Rizo PA-C) Subjective Pt evaluation today including: conversation w/ patient, conversation w/ family , physical exam, chart review, lab review, review of studies, conversation w/ sap security consultant, review of inpatient medication list Patient reports new right-sided weakness during the night. She thinks that her symptoms started at about 12:30. She is having difficulty moving her right leg , which is unusual. Typically she is able to lift her right leg off the bed. She reports not being able to do this. She also reports a bizarre tingling sensation on her face. She is also having difficulty with strength in her right arm. She noticed it when she tried to reach for her glass of water. She denies any headache or changes in vision. The pain in the left lower extremity is actually improved today. Additional Comments: 6 system review negative. Please see pertinent positives in the history of present illness section. (Tamara Rizo PA-C) Objective Vital Signs Date Time Temp Pulse Resp B/P Pulse Ox O2 Delivery O2 Flow Rate FiO2 12/21/16 10:18 36.4 88 18 136/69 12/21/16 09:17 84 12/21/16 07:28 36.5 95 18 130/74 100 Nasal Cannula 3.0 12/20/16 23:30 Nasal Cannula 3.0 Humidified Air 12/20/16 23:28 36.5 102 18 117/65 100 Nasal Cannula 3.0 Humidified Air 12/20/16 15:37 Nasal Cannula 3.0 12/20/16 15:31 36.9 92 17 132/70 100 Nasal Cannula 2.5 (Tamara Rizo PA-C) Physical Exam General Appearance: + moderate distress (significantly anxious.) Eyes: EOMI ENT: + pertinent finding (oral mucosa slightly dry. No exudate noted.) Neck: no JVD Respiratory/Chest: lungs clear Cardiovascular: + irregularly irregular Abdomen: non tender, soft, + pertinent finding (bowel sounds present, but hypoactive.) Extremities: + pertinent finding (some serosanguineous drainage noted on the dressing of the left lower extremity. No pedal edema in the right lower extremity.) Neurologic/Psychiatric: alert, + pertinent finding (slight weakness noted with right associate quality engineer strength compared to left associate quality engineer strength. Difficulty with rapid alternating movements with the right upper extremity. Right lower extremity strength 1/5. Left lower extremity strength 3/5) Skin: warm/dry (Tamara Rizo PA-C) Laboratory Results 12/21/16 06:10 Red Blood Count 2.52, Mean Corpuscular Volume 86.9, Mean Corpuscular Hemoglobin 28.6, Mean Corpuscular Hemoglobin Concent 32.9, Mean Platelet Volume 8.5, Neutrophils (%) (Auto) 75.2, Lymphocytes (%) (Auto) 13.7, Monocytes (%) (Auto) 8.6, Eosinophils (%) (Auto) 2.5, Basophils (%) (Auto) 0.0, Neutrophils # (Auto) 2.37, Lymphocytes # (Auto) 0.43, Monocytes # (Auto) 0.27, Eosinophils # (Auto) 0.08, Basophils # (Auto) 0.00 Test 12/21/16 06:10 12/21/16 08:11 White Blood Count 3.15 K/uL (4.8-10.8) Red Blood Count 2.52 M/uL (4.2-5.4) Hemoglobin 7.2 g/dL (12.0-16.0) Hematocrit 21.9 % (37-47) Mean Corpuscular Volume 86.9 fL (80-100) Mean Corpuscular Hemoglobin 28.6 pg (25-34) Mean Corpuscular Hemoglobin Concent 32.9 g/dl (32-36) Platelet Count 88 K/uL (130-400) Mean Platelet Volume 8.5 fL (7.4-10.4) Neutrophils (%) (Auto) 75.2 % Lymphocytes (%) (Auto) 13.7 % Monocytes (%) (Auto) 8.6 % Eosinophils (%) (Auto) 2.5 % Basophils (%) (Auto) 0.0 % Neutrophils # (Auto) 2.37 K/uL (1.4-6.5) Lymphocytes # (Auto) 0.43 K/uL (1.2-3.4) Monocytes # (Auto) 0.27 K/uL (0.11-0.59) Eosinophils # (Auto) 0.08 K/uL (0-0.5) Basophils # (Auto) 0.00 K/uL (0-0.2) RDW Standard Deviation 59.0 fL (36.4-46.3) RDW Coefficient of Variation 18.7 % (11.5-14.5) Immature Granulocyte % (Auto) 0.0 % Immature Granulocyte # (Auto) 0.00 K/uL (0.00-0.02) Red Blood Cell Morphology Unremarkable Bedside Glucose 129 mg/dl (70-90) Last 24 Hours Test 12/20/16 12:52 12/20/16 17:21 12/20/16 20:31 12/21/16 06:10 Bedside Glucose 139 mg/dl 118 mg/dl 151 mg/dl White Blood Count 3.15 K/uL Red Blood Count 2.52 M/uL Hemoglobin 7.2 g/dL Hematocrit 21.9 % Mean Corpuscular Volume 86.9 fL Mean Corpuscular Hemoglobin 28.6 pg Mean Corpuscular Hemoglobin Concent 32.9 g/dl Platelet Count 88 K/uL Mean Platelet Volume 8.5 fL Neutrophils (%) (Auto) 75.2 % Lymphocytes (%) (Auto) 13.7 % Monocytes (%) (Auto) 8.6 % Eosinophils (%) (Auto) 2.5 % Basophils (%) (Auto) 0.0 % Neutrophils # (Auto) 2.37 K/uL Lymphocytes # (Auto) 0.43 K/uL Monocytes # (Auto) 0.27 K/uL Eosinophils # (Auto) 0.08 K/uL Basophils # (Auto) 0.00 K/uL RDW Standard Deviation 59.0 fL RDW Coefficient of Variation 18.7 % Immature Granulocyte % (Auto) 0.0 % Immature Granulocyte # (Auto) 0.00 K/uL Red Blood Cell Morphology Unremarkable Test 12/21/16 08:11 Bedside Glucose 129 mg/dl (Tamara Rizo PA-C) Assessment and Plan 71 y/o female with a history of chronic lower extremity wounds, T2DM, CAD, HTN, diastolic CHF, a.fib, hypothyroidism, COPD, and GERD who presented to the ED with a worsening LLE wound. New right-sided weakness and paresthesias-symptoms started reportedly around midnight. Worrisome for CVA especially given her history of A. fib -CT head negative -TPA not indicated. Out of time frame. Also recent surgery, anemia and thrombocytopenia -Stat MRI brain combo -Aspirin PA 300 mg now -NPO--> speech eval -Transferred to telemetry Left foot ulcer w/LLE cellulitis and left foot osteomyelitis--s/p left BKA on . POD #4 -Continue current abx, Zyvox and Levaquin -ID following -Morphine increased yesterday. Patient was also put on scheduled Toradol and Tylenol. Pain regimen seems to be helping. Pain/Anxiety-seems her anxiety is exacerbating her pain and nausea -Cymbalta 20 mg daily started today -Continue Ativan 0.5 mg po BID for anxiety Nausea-more anorexia -KUB no evidence of ileus -Continue prn Zofran Constipation-likely secondary to pain meds/anorexia -Continue aggressive bowel regimen: Colace BID, MiraLAX BID and Dulcolax daily Acute on chronic anemia-Hgb dropped further today 7.2 -Received 2 units PRBCs on 12/16 -Given additional 2 units of pRBCs now. Posttransfusion H&H -May need an additional unit A fib-rate controlled -Continue diltiazem 240 mg PO qam, digoxin 125 mcg PO qd -AC was on hold for sx/anemia-->would like to restart outpt Xarelto today if MRI is neg. Pt is high bleed risk given recent sx and anemia. Heparin may be a safer choice in the interim COPD with chronic respiratory failure--stable -Continue Advair 1 puff inh BID, theophylline 600 mg PO qhs, and Spiriva Chronic diastolic CHF--stable -Continue spironolactone 25 mg PO qam and Lasix 20 mg PO qd-->Will hold if pt remains NPO T2DM-- -Insulin sliding scale -Check BSGs q ac and qhs CKD stage 3-stable Hypothyroidism -Continue Synthroid 250 mcg PO qd DVT prophylaxis -Enoxaparin 40 mg SC q24h Code Status -Level V, DO NOT RESUSCITATE Dispo -transfer to tele for CVA work up (Tamara Rizo, PAPerfectoC) Attending Attestation: Pt seen/examined, chart reviewed, care plan d/w JULI Rizo. I agree w/ the andrea components of her documentation except - strength RLE about 3 /5, LLE 4/5 Developed RUE/RLE weakness - worse in leg - about 1230am, maybe 1am - she is unsure. No dysarthria or aphasia. Some difficulty swallowing pills this am. Very anxious. She did not mention any pain in her left leg. VSS afebrile gen - anxious, NAD face - no droop neck - no JVD heart - irregular lungs - CTA b/l abd - soft, NT ext - LLE BKA, dressings in place; right foot w/o edema neuro - speech fluent; RUE strength 4/5; minimal amount pronator drift; strength right leg 3/5, left leg 4/5 labs - blood cx's neg BMP stable with normal Cr Hb 7.2 A/P: 1. s/p left BKA for chronic osteomyelitis/nonhealing wounds left foot/ankle - POD #4 2. uncontrolled pain - seems better today. combination of visceral pain from the surgery and neuropathic pain/phantom limb. recommend scheduled tylenol 1gm TID amd morphine 4mg q3h prn. 3. anorexia - likely multifactorial; no better, no worse 4. chronic resp failure - stable on home O2 amount. 5. anxiety, acute stress - consider SSRI or effexor if symptoms persist. 6. acute/chronic anemia - acute component worse today Tx 2 units PRBCs hemoccult stools CBC am 7. concern of right-sided stroke - CT head neg; MRI brain ultimately negative TIA?? has a. fib - consider anticoagulation, but unsure if she is good candidate; address tomorrow in meantime give aspirin speech saw patient - cleared for diet tele x 24 hours Wade Lui MD (Wade Lui MD)
[2016-12-21] MEDS: LEVOFLOXACIN 750 MG TAB PO SCH (11:00)
[2016-12-21] MEDS ORDERED: LORAZEPAM 2 MG/ML 1 ML VIAL ONE (14:19)
[2016-12-21] MEDS ORDERED: LEVOFLOXACIN 750 MG TAB PO ONE (15:00)
--- NOTE | 2016-12-21 15:31 | DIAGNOSTIC IMAGING REPORT ---
MRI OF THE BRAIN WITHOUT AND WITH IV CONTRAST CLINICAL HISTORY: New right-sided weakness. COMPARISON STUDY: Head CT T performed earlier today. TECHNIQUE: Utilizing a 1.5 Alejandrina magnet and dedicated coil, multiplanar, multiecho imaging of the brain was performed pre and postcontrast administration. IV administration of 9.9 mL of Gadavist contrast was uneventful. FINDINGS: This exam is mildly compromised by motion artifact. There are no areas of restricted diffusion. No acute intracranial hemorrhage, midline shift or mass effect is present. Ventricular system is unremarkable for age. Moderate cerebral atrophy. There is a 5 mm enhancing extra-axial lesion along the undersurface of the right tentorium. A few white matter T2 hyperintense foci suggest mild small vessel disease. There is a tiny air-fluid level within the right maxillary sinus. There is a small amount of fluid within the bilateral mastoid air cells. Marrow signal within the calvarium is diminished. IMPRESSION: 1. No acute intracranial findings. 2. Moderate atrophy and minimal small vessel disease. 3. 5 mm enhancing extra-axial lesion along the right tentorium which suggests a tiny meningioma. 4. Diminished marrow signal within the calvarium on T1 weighted sequences, a nonspecific finding that could reflect a marrow proliferative or replacement process. Electronically signed by: Joe Rajput M.D. 12/21/2016 3:29 PM Dictated Date/Time: 12/21/2016 3:22 PM
[2016-12-21] MEDS ORDERED: ACETAMINOPHEN 500 MG TAB PO ONE (17:14)
[2016-12-21] MEDS: THEOPHYLLINE 300MG EXTENDED REL TAB PO SCH (20:33)
[2016-12-22] MEDS: ACETAMINOPHEN 500 MG TAB PO SCH ×3 (01:31→17:00)
[2016-12-22] MEDS: MoRPHine SULFATE 4 MG/ML 1 ML CARP\\VIAL IV PRN ×6 (03:29→22:38)
[2016-12-22 03:34] VITALS: BP 163/73; PULSE 89; TEMP 36.4; O2SAT 100
[2016-12-22] MEDS: LEVOTHYROXINE SODIUM PO SCH ×2 (05:55)
[2016-12-22 06:27] LABS: HEMATOCRIT 26.5 % (37-47); MEAN CORPUSCULAR HEMOGLOBIN 29.2 pg (25-34); RED BLOOD COUNT 3.08 M/uL (4.2-5.4); WHITE BLOOD COUNT 2.81 K/uL (4.8-10.8)
[2016-12-22 06:51] LABS: COMPLETE YES; EOS % 3.2 %; IG% 0.4 %; LYMPH % 16.4 %; LYMPH ABS # 0.46 K/uL (1.2-3.4); MEAN PLATELET VOLUME 8.5 fL (7.4-10.4); PLATELET COUNT 96 K/uL (130-400)
[2016-12-22 06:59] LABS: BUN/CREATININE RATIO 17.7 (10-20); CALCIUM 8.3 mg/dl (8.5-10.1); CREATININE 0.9 mg/dl (0.60-1.20); MAGNESIUM 2.3 mg/dl (1.8-2.4); POTASSIUM 4.4 mmol/L (3.5-5.1)
[2016-12-22] MEDS: LACTOBACILLUS ACIDOPHILUS (FLORANEX) TAB PO SCH ×3 (07:33→16:45)
[2016-12-22 07:35] VITALS: BP 158/63; PULSE 86; TEMP 36.5; O2SAT 100
[2016-12-22] MEDS: INSULIN ASPART 100 UNITS/ML 3 ML PEN SC SCH ×4 (07:39→21:33)
[2016-12-22] MEDS: BOOST GLUCOSE CONTROL PO SCH ×2 (07:39→16:45)
--- NOTE | 2016-12-22 08:54 | Hospitalist Progress Note ---
Hospitalist Progress Note Date of Service Dec 22, 2016. (Tamara Rizo PA-C) Subjective Pt evaluation today including: conversation w/ patient, physical exam, chart review, lab review, review of studies, review of inpatient medication list Patient reports that the strength in her right leg seems to be a little better today. It is also improved in her right arm. She is still complaining of a "twisted sensation "in her face. This has been ongoing since the surgery. She denies any headache. No changes in vision. She was somewhat disturbed last night when they changed the dressing on her left leg because of the amount of blood that she saw. It made her very anxious and nauseous. She is feeling overwhelmed and that she is not strong enough to beat this. Additional Comments: 6 system review negative. Please see pertinent positives in the history of present illness section. (Tamara Rizo PA-C) Objective Vital Signs Date Time Temp Pulse Resp B/P Pulse Ox O2 Delivery O2 Flow Rate FiO2 12/22/16 08:00 Nasal Cannula 2.0 12/22/16 07:35 36.5 86 18 158/63 100 3.0 12/22/16 04:03 Nasal Cannula 2.0 12/22/16 03:34 36.4 89 19 163/73 100 Nasal Cannula 2.0 12/22/16 00:00 Nasal Cannula 2.0 12/21/16 23:35 36.6 102 18 144/77 100 12/21/16 20:00 100 Nasal Cannula 2.0 12/21/16 19:50 36.5 92 18 135/73 100 2.0 12/21/16 19:21 36.7 90 18 138/72 100 Nasal Cannula 2.0 12/21/16 18:30 36.7 89 18 148/84 99 12/21/16 18:00 36.9 94 20 151/84 99 12/21/16 17:30 36.9 92 18 151/85 98 12/21/16 17:15 36.9 98 18 157/72 98 12/21/16 17:00 36.8 89 18 122/78 100 12/21/16 16:00 100 Nasal Cannula 3.0 Humidified Oxygen 12/21/16 14:10 37.0 95 18 117/64 100 12/21/16 13:50 37.0 90 18 113/65 100 12/21/16 12:50 36.9 95 20 115/56 100 12/21/16 12:20 37.0 95 20 119/67 100 12/21/16 12:00 100 Nasal Cannula 3.0 Humidified Oxygen 12/21/16 11:50 36.5 92 18 123/65 100 12/21/16 11:20 36.5 98 18 108/63 100 12/21/16 10:50 36.5 95 18 125/54 100 12/21/16 10:34 36.5 96 138/63 100 12/21/16 10:18 36.4 88 18 136/69 12/21/16 09:17 84 (Tamara Rizo PA-C) Physical Exam General Appearance: + mild distress (anxious in appearance) Eyes: EOMI ENT: + pertinent finding (oral mucosa fairly dry. No exudate noted.) Neck: no JVD Respiratory/Chest: + pertinent finding (diminished breath sounds in the bases bilaterally. No crackles, wheezing or rhonchi.) Cardiovascular: + irregularly irregular Abdomen: normal bowel sounds, non tender, soft Extremities: + pertinent finding (no pedal edema noted in the right lower extremity. Dressing is clean, dry and intact without any serosanguineous drainage noted to the left lower extremity) Neurologic/Psychiatric: oriented x 3, + depressed affect (appears depressed and anxious), + pertinent finding (strength in the right upper extremity and right lower extremity is improved from yesterday.) Skin: warm/dry (Tamara Rizo PA-C) Laboratory Results 12/22/16 06:15 Red Blood Count 3.08, Mean Corpuscular Volume 86.0, Mean Corpuscular Hemoglobin 29.2, Mean Corpuscular Hemoglobin Concent 34.0, Mean Platelet Volume 8.5, Neutrophils (%) (Auto) 70.0, Lymphocytes (%) (Auto) 16.4, Monocytes (%) (Auto) 10.0, Eosinophils (%) (Auto) 3.2, Basophils (%) (Auto) 0.0, Neutrophils # (Auto ) 1.97, Lymphocytes # (Auto) 0.46, Monocytes # (Auto) 0.28, Eosinophils # (Auto ) 0.09, Basophils # (Auto) 0.00 12/22/16 06:15 Test 12/22/16 06:15 4/16/17 06:46 12/22/16 08:23 12/22/16 08:40 White Blood Count 2.81 K/uL (4.8-10.8) Red Blood Count 3.08 M/uL (4.2-5.4) Hemoglobin 9.0 g/dL (12.0-16.0) Hematocrit 26.5 % (37-47) Mean Corpuscular Volume 86.0 fL (80-100) Mean Corpuscular Hemoglobin 29.2 pg (25-34) Mean Corpuscular Hemoglobin Concent 34.0 g/dl (32-36) Platelet Count 96 K/uL (130-400) Mean Platelet Volume 8.5 fL (7.4-10.4) Neutrophils (%) (Auto) 70.0 % Lymphocytes (%) (Auto) 16.4 % Monocytes (%) (Auto) 10.0 % Eosinophils (%) (Auto) 3.2 % Basophils (%) (Auto) 0.0 % Neutrophils # (Auto) 1.97 K/uL (1.4-6.5) Lymphocytes # (Auto) 0.46 K/uL (1.2-3.4) Monocytes # (Auto) 0.28 K/uL (0.11-0.59) Eosinophils # (Auto) 0.09 K/uL (0-0.5) Basophils # (Auto) 0.00 K/uL (0-0.2) RDW Standard Deviation 57.9 fL (36.4-46.3) RDW Coefficient of Variation 18.5 % (11.5-14.5) Immature Granulocyte % (Auto) 0.4 % Immature Granulocyte # (Auto) 0.01 K/uL (0.00-0.02) Anion Gap 6.0 mmol/L (3-11) Est Creatinine Clear Calc Drug Dose 60.7 ml/min Estimated GFR () 74.0 Estimated GFR (Non- 63.9 BUN/Creatinine Ratio 17.7 (10-20) Calcium Level 8.3 mg/dl (8.5-10.1) Magnesium Level 2.3 mg/dl (1.8-2.4) Total Creatine Kinase 33 U/L (26-192) Troponin I 0.016 ng/ml (0-0.045) Bedside Glucose 161 mg/dl (70-90) Test 12/22/16 08:42 Last 24 Hours Test 12/21/16 12:13 12/21/16 15:40 12/21/16 16:09 12/21/16 20:16 Bedside Glucose 131 mg/dl 104 mg/dl 124 mg/dl Hemoglobin 7.8 g/dL Hematocrit 23.0 % Test 12/22/16 06:15 12/22/16 06:46 White Blood Count 2.81 K/uL Red Blood Count 3.08 M/uL Hemoglobin 9.0 g/dL Hematocrit 26.5 % Mean Corpuscular Volume 86.0 fL Mean Corpuscular Hemoglobin 29.2 pg Mean Corpuscular Hemoglobin Concent 34.0 g/dl Platelet Count 96 K/uL Mean Platelet Volume 8.5 fL Neutrophils (%) (Auto) 70.0 % Lymphocytes (%) (Auto) 16.4 % Monocytes (%) (Auto) 10.0 % Eosinophils (%) (Auto) 3.2 % Basophils (%) (Auto) 0.0 % Neutrophils # (Auto) 1.97 K/uL Lymphocytes # (Auto) 0.46 K/uL Monocytes # (Auto) 0.28 K/uL Eosinophils # (Auto) 0.09 K/uL Basophils # (Auto) 0.00 K/uL RDW Standard Deviation 57.9 fL RDW Coefficient of Variation 18.5 % Immature Granulocyte % (Auto) 0.4 % Immature Granulocyte # (Auto) 0.01 K/uL Sodium Level 138 mmol/L Potassium Level 4.4 mmol/L Chloride Level 103 mmol/L Carbon Dioxide Level 29 mmol/L Anion Gap 6.0 mmol/L Blood Urea Nitrogen 16 mg/dl Creatinine 0.90 mg/dl Est Creatinine Clear Calc Drug Dose 60.7 ml/min Estimated GFR () 74.0 Estimated GFR (Non- 63.9 BUN/Creatinine Ratio 17.7 Random Glucose 171 mg/dl Calcium Level 8.3 mg/dl Magnesium Level 2.3 mg/dl Total Creatine Kinase 33 U/L Troponin I 0.016 ng/ml Bedside Glucose 161 mg/dl (Tamara Rizo, NORA) Diagnostic Results MRI OF THE BRAIN WITHOUT AND WITH IV CONTRAST CLINICAL HISTORY: New right-sided weakness. COMPARISON STUDY: Head CT T performed earlier today. TECHNIQUE: Utilizing a 1.5 Alejandrina magnet and dedicated coil, multiplanar, multiecho imaging of the brain was performed pre and postcontrast administration. IV administration of 9.9 mL of Gadavist contrast was uneventful. FINDINGS: This exam is mildly compromised by motion artifact. There are no areas of restricted diffusion. No acute intracranial hemorrhage, midline shift or mass effect is present. Ventricular system is unremarkable for age. Moderate cerebral atrophy. There is a 5 mm enhancing extra-axial lesion along the undersurface of the right tentorium. A few white matter T2 hyperintense foci suggest mild small vessel disease. There is a tiny air-fluid level within the right maxillary sinus. There is a small amount of fluid within the bilateral mastoid air cells. Marrow signal within the calvarium is diminished. IMPRESSION: 1. No acute intracranial findings. 2. Moderate atrophy and minimal small vessel disease. 3. 5 mm enhancing extra-axial lesion along the right tentorium which suggests a tiny meningioma. 4. Diminished marrow signal within the calvarium on T1 weighted sequences, a nonspecific finding that could reflect a marrow proliferative or replacement process. Electronically signed by: Joe Rajput M.D. 12/21/2016 3:29 PM Dictated Date/Time: 12/21/2016 3:22 PM The status of this report is Signed. Draft = Not yet reviewed or approved by Radiologist. Signed = Reviewed and approved by Radiologist. <AttendingPhy>Wade Lui MD</AttendingPhy> <FamilyPhy>Oscar Etienne M.D.</FamilyPhy> <PrimaryPhy>Oscar Etienne M.D.</PrimaryPhy> <UnitNumber> [id number]</UnitNumber> <VisitNumber>[id number]</VisitNumber> <PatientName> RASHAADKENNETH HUDDLESTON</PatientName> <DateOfBirth>1945</DateOfBirth> <Location> [facility]</Location> <ServiceDate>12/13/16</ServiceDate> <MNE>ESINDI</MNE> < OrderingPhy>Tamara Rizo PA-C</OrderingPhy> <OrderingPhyMNE>f rep ord dr rahman< /OrderingPhyMNE> <DictatingPhyMNE>f rep dict dr rahman</DictatingPhyMNE> <CCListMNE >f rep ct lacey</CCListMNE> <AdmittingPhyMNE>f pt admit dr rahman</AdmittingPhyMNE> < AttendingPhyMNE>f pt attend dr rahman</AttendingPhyMNE> <ConsultingPhyMNE>f pt consult dr rahman</ConsultingPhyMNE> <FamilyPhyMNE>f pt fam dr rahman</FamilyPhyMNE> <OtherPhyMNE>f pt other dr rahman</OtherPhyMNE> < PrimaryPhyMNE>f pt prim care dr rahman</PrimaryPhyMNE> <ReferringPhyMNE>f pt referring dr rahman</ReferringPhyMNE> (Tamara Rizo PA-C) Assessment and Plan 71 y/o female with a history of chronic lower extremity wounds, T2DM, CAD, HTN, diastolic CHF, a.fib, hypothyroidism, COPD, and GERD who presented to the ED with a worsening LLE wound. New right-sided weakness and paresthesias on 12/21-symptoms seem somewhat improved this morning -CT head negative -MRI negative for acute CVA -? Possible TIA versus severe anxiety causing paresthesias -Continue aspirin 81 mg daily -Passed swallow evaluation: Recommended dental soft diet Left foot ulcer w/LLE cellulitis and left foot osteomyelitis--s/p left BKA on . -Continue Zyvox and Levaquin--> will likely be able to discontinue antibiotics soon -Pain has much improved in the left lower extremity. Continue morphine IV and scheduled Tylenol for today. -Consider transition to MS Contin tomorrow Anxiety/depression -Psych consult -Continue Cymbalta 20 mg daily -Continue Ativan 0.5 mg twice daily prn A fib-rate is reasonable -Telemetry reviewed. Hovering between 80-100 bpm -Continue diltiazem 240 mg PO qam, digoxin 125 mcg PO qd -Outpatient Xarelto has been on hold due to surgery and anemia. -Begin heparin drip with no bolus today. Close monitoring of H&H Nausea-more anorexia-appetite is improved today -KUB no evidence of ileus Constipation-likely secondary to pain meds/anorexia -Last BM 12/19 -Tolerating diet -Continue aggressive bowel regimen: Colace BID, MiraLAX BID and Dulcolax daily Acute on chronic anemia -Received 2 units PRBCs on 12/16 and again received 2 units pRBCs on 12/21 -Appropriate rise in H&H -Continue to monitor Abnormal marrow signal on MRI in the setting of pancytopenia -may need outpt work up COPD with chronic respiratory failure--stable -Check theophylline level this morning. Pending level, continue theophylline 600 mg at bedtime -Continue Advair 1 puff inh BID, and Spiriva Chronic diastolic CHF--stable -Continue spironolactone 25 mg PO qam and Lasix 20 mg PO qd Q0MN-POP's stable -Insulin sliding scale -Check BSGs q ac and qhs CKD stage 3-stable Hypothyroidism -Continue Synthroid 250 mcg PO qd DVT prophylaxis -Discontinue Lovenox. Begin heparin drip Code Status -Level V, DO NOT RESUSCITATE Dispo -Likely stable for transfer off telemetry today (Tamara Rizo, NORA) Attending Attestation: Pt seen/examined, chart reviewed, care plan d/w PA Tamara Rizo. I agree w/ the andrea components of her documentation. After Darrius visited the patient this AM she began Ms. Gloria on a heparin drip for anticoagulation in light of her a. fib and yesterday's TIA. The patient promptly developed gross hematuria and the drip was stopped. During my visit with her the patient was extremely anxious about all aspects of her medical issues and was tearful. Still with "throbbing/shooting" pains in left stump/leg. VSS afebrile gen - anxious, NAD, tearful at times face - no droop speech fluent/clear neck - JVD present today heart - irregular lungs - bibasilar rales with course BS today b/l abd - soft, NT ext - LLE BKA, dressings in place; right foot w/o edema neuro - speech fluent; RUE/RLE strength today nearly 5/5 labs - blood cx's neg BMP stable with normal Cr Hb 9 wbc 2.8 theophylline level 29 - toxic A/P: 1. s/p left BKA for chronic osteomyelitis/nonhealing wounds left foot/ankle - POD #5 2. uncontrolled pain - her description today suggests ongoing phantom limb pain. increase gabapentin to TID dosing today. cont morphine IV prn 3. anorexia - theophylline toxicity? constipation? anxiety/pain? probably multifactorial 4. chronic resp failure - stable on home O2 amount. 5. anxiety, acute stress - psych consult; Ms. Rizo started cymbalta 6. acute/chronic anemia - s/p 4 units in total of PRBCs this admission 7. concern of right-sided stroke yesterday - MRI NEGATIVE FOR STROKE thus, yesterday's event was a TIA ideally she should be back on her xarelto (has a. fib) today, however she developed gross hematuria with systemic heparin HOLD any systemic anticoagulation for now continue (cautiously) aspirin 8. pancytopenia - worsening - etiology unclear. send peripheral smear/path check SPEP MRI brain with abnormal appearing bone (see full report) MM? other bone marrow disorder? if she does in fact have a bone marrow disorder this would be yet another issue making her recovery difficulty if not impossible 9. theophylline toxicity - theophylline d/c. spoke with poison control - serial levels until the level is decreasing (this in fact happened this afternoon). they recommended AGAINST lasix today (typically IVF is recommended with toxicity ). will hold any fluids or lasix suspect theophylline toxicity has played a role in her anorexia, nausea, etc 10. suspected acute/chronic diastolic CHF - lasix IV tomorrow to keep her net negative. son updated 12/22, questions answered Wade Lui MD (Wade Lui MD)
[2016-12-22] MEDS ORDERED: HEPARIN 25,000 UNIT/500ML D5W 500 ML IV PRN (09:00)
[2016-12-22 09:17] LABS: INR 1.2 (0.9-1.1); PARTIAL THROMBOPLASTIN RATIO 1.5; PROTHROMBIN TIME (PATIENT) 13.4 SECONDS (9.0-12.0)
[2016-12-22] MEDS: ASPIRIN 81 MG ECTAB PO SCH (09:36)
[2016-12-22] MEDS: MAGNESIUM OXIDE 400 MG TAB PO SCH ×2 (09:36→21:43)
[2016-12-22] MEDS: GUAIFENESIN 600 MG TABCR PO SCH ×2 (09:37→21:40)
[2016-12-22] MEDS: POTASSIUM CHLORIDE 20 MEQ TABCR PO SCH (09:37)
[2016-12-22] MEDS: DULOXETINE HCL 20 MG CAP PO SCH (09:38)
[2016-12-22] MEDS: DOCUSATE SODIUM 100 MG CAP PO SCH ×2 (09:38→21:43)
[2016-12-22] MEDS: GABAPENTIN 300 MG CAP PO SCH ×3 (09:38→21:41)
[2016-12-22] MEDS: DIGOXIN 0.125 MG TAB PO SCH (09:38)
[2016-12-22] MEDS: PANTOprazole SOD 40 MG TAB PO SCH (09:38)
[2016-12-22] MEDS: POLYETHYLENE (MIRALAX) 17 GM PACK PO SCH ×2 (09:39→21:41)
[2016-12-22] MEDS: LINEZOLID 600 MG TAB PO SCH ×2 (09:39→21:44)
[2016-12-22] MEDS: SPIRONOLACTONE 25 MG TAB PO SCH (09:39)
[2016-12-22] MEDS: FERROUS GLUCONATE 324 MG TAB PO SCH (09:39)
[2016-12-22] MEDS: FUROSEMIDE 20 MG TAB PO SCH (09:39)
[2016-12-22] MEDS: TIOTROPIUM BROMIDE 5 PUFF/90 MCG INH INH SCH (09:40)
[2016-12-22] MEDS: FLUTICASONE/SALMETEROL 250/50 (ADVAIR) 14 PUFF/1 INHALER INH SCH ×2 (09:40→21:40)
[2016-12-22] MEDS: EUCERIN CR 120 GM JAR EXT SCH ×2 (09:41→21:39)
[2016-12-22] MEDS: BISACODYL 5 MG TABEC PO SCH (09:55)
[2016-12-22] MEDS: LEVOFLOXACIN 750 MG TAB PO SCH (11:19)
[2016-12-22 12:01] VITALS: BP 129/64; PULSE 76; TEMP 37; O2SAT 97
[2016-12-22 16:01] VITALS: BP 155/64; PULSE 74; TEMP 36.7; O2SAT 99
[2016-12-22] MEDS: LORAZEPAM 0.5 MG TAB PO PRN (16:50)
[2016-12-22 19:01] VITALS: BP 162/69; PULSE 91; TEMP 36.5; O2SAT 98
[2016-12-22] MEDS: TRAMADOL HCL 50 MG TAB PO PRN (21:40)
[2016-12-22 23:46] VITALS: BP 171/64; PULSE 89; TEMP 37; O2SAT 100
[2016-12-23] VITALS (7 sets, daily range): BP systolic 128–174; BP diastolic 63–74; PULSE 77–89; TEMP 36.4–36.7; O2SAT 98–100
[2016-12-23] MEDS: ACETAMINOPHEN 500 MG TAB PO SCH ×3 (00:39→17:12)
[2016-12-23] MEDS: LORAZEPAM 0.5 MG TAB PO PRN (00:40)
[2016-12-23] MEDS: LEVOTHYROXINE SODIUM PO SCH ×2 (06:17)
[2016-12-23 07:21] LABS: BASO % 0.4 %; BASO ABS # 0.01 K/uL (0-0.2); EOS % 4.9 %; HEMATOCRIT 27.3 % (37-47); IG% 0.4 %; LYMPH % 16.8 %; LYMPH ABS # 0.48 K/uL (1.2-3.4); MEAN CELL VOLUME 87.2 fL (80-100); MEAN CORPUSCULAR HEMOGLOBIN 28.8 pg (25-34); MEAN PLATELET VOLUME 8.5 fL (7.4-10.4); MONO % 12.6 %; NEUT % 64.9 %; PLATELET COUNT 102 K/uL (130-400); RED BLOOD COUNT 3.13 M/uL (4.2-5.4); WHITE BLOOD COUNT 2.85 K/uL (4.8-10.8)
[2016-12-23] MEDS: BOOST GLUCOSE CONTROL PO SCH ×2 (07:30→17:45)
[2016-12-23 07:39] LABS: BUN/CREATININE RATIO 16.3 (10-20); CALCIUM 8.4 mg/dl (8.5-10.1); CREATININE 0.81 mg/dl (0.60-1.20); POTASSIUM 4.7 mmol/L (3.5-5.1)
[2016-12-23 08:04] LABS: COMPLETE YES
[2016-12-23] MEDS: SPIRONOLACTONE 25 MG TAB PO SCH (08:32)
[2016-12-23] MEDS: ASPIRIN 81 MG ECTAB PO SCH (08:32)
[2016-12-23] MEDS: PANTOprazole SOD 40 MG TAB PO SCH (08:32)
[2016-12-23] MEDS: LACTOBACILLUS ACIDOPHILUS (FLORANEX) TAB PO SCH ×3 (08:33→18:19)
[2016-12-23] MEDS: FUROSEMIDE 20 MG TAB PO SCH (08:33)
[2016-12-23] MEDS: GABAPENTIN 300 MG CAP PO SCH ×3 (08:33→21:12)
[2016-12-23] MEDS: DOCUSATE SODIUM 100 MG CAP PO SCH ×2 (08:34→21:10)
[2016-12-23] MEDS: DULOXETINE HCL 20 MG CAP PO SCH (08:34)
[2016-12-23] MEDS: POLYETHYLENE (MIRALAX) 17 GM PACK PO SCH ×2 (08:34→21:11)
[2016-12-23] MEDS: MAGNESIUM OXIDE 400 MG TAB PO SCH ×2 (08:35→21:11)
[2016-12-23] MEDS: TIOTROPIUM BROMIDE 5 PUFF/90 MCG INH INH SCH (08:35)
[2016-12-23] MEDS: FLUTICASONE/SALMETEROL 250/50 (ADVAIR) 14 PUFF/1 INHALER INH SCH ×2 (08:35→21:09)
[2016-12-23] MEDS: GUAIFENESIN 600 MG TABCR PO SCH ×2 (08:35→21:12)
[2016-12-23] MEDS: LINEZOLID 600 MG TAB PO SCH ×2 (08:35→21:12)
[2016-12-23] MEDS: MoRPHine SULFATE 4 MG/ML 1 ML CARP\\VIAL IV PRN (08:37)
[2016-12-23] MEDS: INSULIN ASPART 100 UNITS/ML 3 ML PEN SC SCH ×4 (08:48→21:00)
[2016-12-23] MEDS: BISACODYL 5 MG TABEC PO SCH (08:49)
[2016-12-23] MEDS: FERROUS GLUCONATE 324 MG TAB PO SCH (08:49)
[2016-12-23] MEDS: POTASSIUM CHLORIDE 20 MEQ TABCR PO SCH (08:50)
[2016-12-23] MEDS: DIGOXIN 0.125 MG TAB PO SCH (08:50)
[2016-12-23] MEDS: EUCERIN CR 120 GM JAR EXT SCH ×3 (08:55→21:10)
--- NOTE | 2016-12-23 09:01 | Hospitalist Progress Note ---
Hospitalist Progress Note Date of Service Dec 23, 2016. (Dee Bills ., PA-C) Subjective Pt evaluation today including: conversation w/ patient, physical exam, chart review, lab review, review of studies, review of inpatient medication list Voiding: pratt catheter in place (draining concentrated clear/yellow urine ) Patient states she is currently feeling well. She complains of continued left stump pain- currently on IV Morphine, discussed switching to oral MS Contin today- pt agreeable. +constipation- currently receiving aggressive bowel regimen- pt feels she is starting to develop the urge to go. +nausea, but improving- tolerated breakfast OK. RESOLVED right-sided numbness/weakness- pt. was place IV Heparin on and develop gross hematuria- Heparin d/c'd- H&H stable- will resume Lovenox today +anxiousness in light of current situation and financial issues. Patient denies any fever, chills, sweats, lightheadedness, dizziness, vision changes, CP, palpitations, edema, SOB, wheezing, cough, abdominal pain, nausea, vomiting, diarrhea, urinary symptoms, melena, numbness/tingling, weakness, anxiety/depression, active bleeding, or new skin discoloration/changes. (Dee Bills ., PA-C) Medications Current Inpatient Medications Medications (Trade) Dose Ordered Sig/Hans Route Start Time Stop Time Status Last Admin Dose Admin Al Hydrox/Mg Hydrox/Simethicone (Maalox Max Susp) 15 ml Q4H PRN PO 12/13/16 18:15 01/12/17 18:14 Magnesium Hydroxide (Milk Of Magnesia Susp) 30 ml Q6H PRN PO 12/13/16 18:15 01/12/17 18:14 Digoxin (Lanoxin Tab) 0.125 mg QAM PO 12/14/16 09:00 01/13/17 08:59 12/22/16 09:38 0.125 MG Ferrous Gluconate (Ferrous Gluconate Tab) 324 mg DAILY PO 12/14/16 09:00 01/13/17 08:59 12/22/16 09:39 324 MG Salmeterol Xinafoate/ Fluticasone (Advair Diskus 250/50 Inh) 1 puff BID INH 12/13/16 21:00 01/12/17 20:59 12/22/16 21:40 1 PUFF Furosemide (Lasix Tab) 20 mg DAILY PO 12/14/16 09:00 01/13/17 08:59 12/22/16 09:39 20 MG Acetaminophen/ Hydrocodone Bitart ([place] 5/325 Tab) 1 tab Q6H PRN PO 12/13/16 18:15 12/27/16 18:14 Future Hold 12/20/16 13:18 1 TAB Lactobacillus Acidophilus (Floranex Tab) 2 tab TIDM PO 12/14/16 08:30 01/13/17 08:29 12/22/16 11:42 2 TAB Magnesium Oxide (Mag-Ox Tab) 400 mg BID PO 12/13/16 21:00 01/12/17 20:59 12/22/16 21:43 400 MG Nitroglycerin (Nitrostat Tab) 0.4 mg DAILY PRN SL 12/13/16 18:15 01/12/17 18:14 Potassium Chloride (Klor-Con Tab) 20 meq DAILY PO 12/14/16 09:00 01/13/17 08:59 12/22/16 09:37 20 MEQ Spironolactone (Aldactone Tab) 25 mg QAM PO 12/14/16 09:00 01/13/17 08:59 12/22/16 09:39 25 MG Theophylline (Paul-Dur Extended Rel Tab) 600 mg HS PO 12/13/16 21:00 01/12/17 20:59 Future Hold 12/21/16 20:33 600 MG Tiotropium [place] (Spiriva Handihaler Inhaler) 1 puff DAILY INH 12/14/16 09:00 01/13/17 08:59 12/22/16 09:40 1 PUFF Tramadol HCl (Ultram Tab) 50 mg Q8H PRN PO 12/13/16 18:15 01/12/17 18:14 12/22/16 21:40 50 MG Multi-Ingredient Ointment (Eucerin Unscented Cr) 1 appln BID EXT 12/13/16 21:00 01/12/17 20:59 12/22/16 21:39 1 APPLN Pantoprazole Sodium (Protonix Tab) 40 mg QAM PO 12/14/16 09:00 01/13/17 08:59 12/22/16 09:38 40 MG Levothyroxine Sodium/ Levothyroxine Sodium (Synthroid Tab/ Synthroid Tab) 250 mcg DAILYBB PO 12/14/16 06:00 01/13/17 05:59 12/23/16 06:17 250 MCG Glucose (Glucose 40% Gel) 15-30 GRAMS 15 GRAMS... UD PRN PO 12/14/16 19:00 01/13/17 18:59 Glucose (Glucose Chew Tab) 4-8 Tablets 4 Tabl... UD PRN PO 12/14/16 19:00 01/13/17 18:59 Dextrose (Dextrose 50% 50ML Syringe) 25-50ML OF 50% DW IV FOR... UD PRN IV 12/14/16 19:00 01/13/17 18:59 Glucagon (Glucagon Inj) 1 mg UD PRN SQ 12/14/16 19:00 01/13/17 18:59 Sodium Chloride ([place] Nasal [place]) 1 sprays QID PRN NA 12/15/16 12:45 01/14/17 12:44 Polyethylene (Miralax Powder Packet) 17 gm BID PO 12/16/16 09:30 01/15/17 09:29 12/22/16 21:41 17 GM Insulin Aspart (novoLOG ASPART) SLIDING SCALE G... ACHS SC 12/18/16 07:00 01/17/17 06:59 12/22/16 11:59 7 UNITS Linezolid (Zyvox Tab) 600 mg BID PO 12/18/16 18:00 12/24/16 23:59 12/22/16 21:44 600 MG Ondansetron HCl (Zofran Inj) 4 mg Q4H PRN IV 12/19/16 08:45 01/18/17 08:44 12/20/16 20:08 4 MG Guaifenesin (Mucinex Contr Rel Tab) 600 mg Q12 PO 12/19/16 09:00 01/18/17 08:59 12/22/16 21:40 600 MG Enteral Nutritional Formula (Boost Glucose Control) 1 can BIDM PO 12/19/16 16:45 01/18/17 16:44 12/22/16 07:39 1 CAN Lorazepam (Ativan Tab) 0.5 mg BID PRN PO 12/20/16 11:45 01/19/17 11:44 12/23/16 00:40 0.5 MG Levofloxacin (Levaquin Tab) 750 mg DAILY@11 PO 12/20/16 13:00 12/24/16 10:59 12/22/16 11:19 750 MG Levofloxacin (Consult) 1 ea UD PRN N/A 12/20/16 13:45 01/19/17 13:44 Acetaminophen (Tylenol Tab) 1,000 mg Q8H PO 12/20/16 17:00 01/19/17 16:59 12/23/16 00:39 1,000 MG Morphine Sulfate (MoRPHine SULFATE INJ) 4 mg Q3H PRN IV 12/20/16 19:00 01/03/17 18:59 12/22/16 22:38 4 MG Bisacodyl (Dulcolax Tab) 5 mg QAM PO 12/21/16 09:00 01/20/17 08:59 12/22/16 09:55 5 MG Docusate Sodium (coLACE CAP) 100 mg BID PO 12/20/16 21:00 01/19/17 20:59 12/22/16 21:43 100 MG Duloxetine HCl (Cymbalta Cap) 20 mg QAM PO 12/21/16 09:00 01/20/17 08:59 12/22/16 09:38 20 MG Aspirin 81 mg 81 mg QAM PO 12/22/16 09:00 01/21/17 08:59 12/22/16 09:36 81 MG Heparin Sodium/ Dextrose (Heparin 25,000 Unit/500ml D5W) 500 ml @ 24 mls/hr [id number] PRN IV 12/22/16 09:00 01/21/17 08:59 12/22/16 10:05 24 MLS/HR Gabapentin (Neurontin Cap) 300 mg TID PO 12/22/16 14:00 01/21/17 13:59 12/22/16 21:41 300 MG (Dee Bills PA-C) Objective Vital Signs Date Time Temp Pulse Resp B/P Pulse Ox O2 Delivery O2 Flow Rate FiO2 12/23/16 07:28 36.4 84 20 147/68 99 Nasal Cannula 2.0 12/23/16 04:00 Nasal Cannula 2.0 12/23/16 03:22 36.7 89 18 138/73 99 Nasal Cannula 2.0 12/23/16 00:00 Nasal Cannula 2.0 12/22/16 23:46 37.0 89 19 171/64 100 Nasal Cannula 2.0 12/22/16 20:00 Nasal Cannula 2.0 12/22/16 19:01 36.5 91 18 162/69 98 Nasal Cannula 2.0 12/22/16 16:01 36.7 74 18 155/64 99 2.0 12/22/16 16:00 Nasal Cannula 2.0 12/22/16 12:01 37.0 76 18 129/64 97 Room Air 12/22/16 12:00 Nasal Cannula 2.0 12/22/16 09:38 80 (Dee Bills, PA-C) Physical Exam General Appearance: no apparent distress Eyes: normal inspection, PERRL ENT: hearing grossly normal Neck: supple Respiratory/Chest: no respiratory distress, no accessory muscle use, + decreased breath sounds (bilateral lung bases ) Cardiovascular: + systolic murmur, + irregularly irregular (rate controlled ) Abdomen: normal bowel sounds, non tender, soft Extremities: + pertinent finding (left BKA wrapped in clean dressing ) Neurologic/Psychiatric: alert, oriented x 3, + pertinent finding (anxious/ tearful ) Skin: normal color, warm/dry, no rash (Dee Bills ., PA-C) Laboratory Results Last 24 Hours Test 12/22/16 08:52 12/22/16 11:37 12/22/16 15:15 12/22/16 15:44 Prothrombin Time 13.4 SECONDS Prothromb Time International Ratio 1.2 Activated Partial Thromboplast Time 40.2 SECONDS Partial Thromboplastin Ratio 1.5 Theophylline Level 29 mcg/ml 25 mcg/ml Bedside Glucose 201 mg/dl 134 mg/dl Test 12/22/16 20:07 12/23/16 06:43 12/23/16 07:04 Bedside Glucose 129 mg/dl 120 mg/dl White Blood Count 2.85 K/uL Red Blood Count 3.13 M/uL Hemoglobin 9.0 g/dL Hematocrit 27.3 % Mean Corpuscular Volume 87.2 fL Mean Corpuscular Hemoglobin 28.8 pg Mean Corpuscular Hemoglobin Concent 33.0 g/dl Platelet Count 102 K/uL Mean Platelet Volume 8.5 fL Neutrophils (%) (Auto) 64.9 % Lymphocytes (%) (Auto) 16.8 % Monocytes (%) (Auto) 12.6 % Eosinophils (%) (Auto) 4.9 % Basophils (%) (Auto) 0.4 % Neutrophils # (Auto) 1.85 K/uL Lymphocytes # (Auto) 0.48 K/uL Monocytes # (Auto) 0.36 K/uL Eosinophils # (Auto) 0.14 K/uL Basophils # (Auto) 0.01 K/uL RDW Standard Deviation 59.1 fL RDW Coefficient of Variation 18.5 % Immature Granulocyte % (Auto) 0.4 % Immature Granulocyte # (Auto) 0.01 K/uL Sodium Level 139 mmol/L Potassium Level 4.7 mmol/L Chloride Level 103 mmol/L Carbon Dioxide Level 32 mmol/L Anion Gap 4.0 mmol/L Blood Urea Nitrogen 13 mg/dl Creatinine 0.81 mg/dl Est Creatinine Clear Calc Drug Dose 67.5 ml/min Estimated GFR () 84.1 Estimated GFR (Non- 72.6 BUN/Creatinine Ratio 16.3 Random Glucose 126 mg/dl Calcium Level 8.4 mg/dl (Dee Bills, PAPerfectoC) Assessment and Plan 71 y/o female with a history of chronic lower extremity wounds, T2DM, CAD, HTN, diastolic CHF, a.fib, hypothyroidism, COPD, and GERD who presented to the ED with a worsening LLE wound. New right-sided weakness and paresthesias on 12/21, ?TIA vs. anxiety- RESOLVED: - CT head negative - MRI negative for acute CVA - Continue ASA 81 mg daily - Passed swallow evaluation- recommended dental soft diet Left foot ulcer w/LLE cellulitis and left foot osteomyelitis--s/p left BKA on : - Continue Zyvox and Levaquin--> will likely be able to discontinue antibiotics soon; ID following - IV Morphine-->transition to MS Contin on 12/23 and scheduled Tylenol - Gabapentin 300 mg TID - Continue PT/OT - STABLE from orthopedic standpoint- f/u outpt 2 weeks postop Anxiety/depression: - Psych consult - Continue Cymbalta 20 mg daily - Continue Ativan 0.5 mg BID PRN A fib- rate controlled: - Telemetry reviewed- a.fib, rate 70-80s -- Transfer to med/surg on 12/23 - Continue Diltiazem 240 mgQAM, Digoxin 125 mcg qd - Outpatient Xarelto has been on hold due to surgery and anemia - Heparin drip with no bolus on d/c'd due to hematuria Nausea- IMPROVING: - KUB no evidence of ileus - Zofran PRN Constipation, likely secondary to pain meds/anorexia- last BM on 12/19: - Tolerating diet - Continue aggressive bowel regimen: Colace BID, MiraLAX BID and Dulcolax daily Acute on chronic anemia- received 2 units PRBCs on 12/16 and 2 units PRBCs on : - Appropriate rise in H&H - Continue to monitor Abnormal marrow signal on MRI in the setting of pancytopenia: - May need outpatient work up - Peripheral smear/path - Check SPEP COPD with chronic respiratory failure- STABLE: - Theophylline level 29 on 12/22--> HOLD Theophylline 600 mg HS - Continue Advair 1 puff inh BID, and Spiriva - O2 protocol--> wears 2L O2 supplement 31/03 at home Chronic diastolic CHF- STABLE: - Continue Spironolactone 25 mg QAM and Lasix 20 mg qd - Monitor I&Os T2DM: BSG ACHS w/ sliding insulin scale CKD stage 3- STABLE Hypothyroidism: - Continue Synthroid 250 mcg PO qd - TSH on 12/17 WNL DVT prophylaxis: Lovenox 40 mg SQ q24 hrs, SCDs Code Status: Level V, DO NOT RESUSCITATE Dispo: Pending [facility] vs. [facility] placement (Dee Bills ., PA-C) PA Physician Supervision Note: I interviewed and examined the patient. Discussed with Dee Bills PAC and agree with findings and plan as documented in the note. Any exceptions or clarifications are listed here: None Pt was having pain at BKA site, overall not tolerating diet well. Will likely need some rehab vital show variable blood pressure some up some down Car is irregular lungs are clear right leg with some edema osteomyelitis, BKA and continues with zyvox and levaquin pain control change to po, consider increasing neurontin if not improved with ms contin Afib rate control with diltiazem and digoxin with digoxin level 12/24 Abnormal marrow on head MRI will need follow up with heme case management in assistance for rehab Documented By: Tirso Carrera (Tirso Carrera M.D.)
[2016-12-23] MEDS: MoRPHine SULFATE CR 15 MG TAB (MS CONTIN) PO SCH ×2 (11:39→22:21)
[2016-12-23] MEDS: ENOXAPARIN 40 MG/0.4 ML SYR SQ SCH (11:39)
[2016-12-23] MEDS: LEVOFLOXACIN 750 MG TAB PO SCH (11:40)
[2016-12-23] MEDS: TRAMADOL HCL 50 MG TAB PO PRN (15:59)
--- NOTE | 2016-12-23 17:07 | Orthopedic Progress Note ---
Orthopedic Progress Note Date of Service Dec 23, 2016. Subjective Post OP Day: 6 Reports: pain controlled w PO medications, Denies: SOB, chest pain, nausea / vomiting Additional Notes: States has a lot of pain in her left leg, "hard for her to move it". Objective calves soft nontender, N/V intact, dressing C/D/I, incision C/D/I, A&O x3 Incision clean, dry, intact, sutures retained. Minimal edema of stump. No drainage from incision. Date Time Temp Pulse Resp B/P Pulse Ox O2 Delivery O2 Flow Rate FiO2 12/23/16 15:41 36.4 84 18 163/74 100 Nasal Cannula 2.0 12/23/16 14:10 Room Air 12/23/16 14:10 36.5 84 18 174/67 100 Nasal Cannula 2.0 12/23/16 13:19 36.5 82 19 98 2.0 12/23/16 12:08 36.5 82 19 128/63 98 Nasal Cannula 2.0 12/23/16 12:00 Nasal Cannula 2.0 12/23/16 08:50 84 12/23/16 08:00 Nasal Cannula 2.0 12/23/16 07:28 36.4 84 20 147/68 99 Nasal Cannula 2.0 12/23/16 04:00 Nasal Cannula 2.0 12/23/16 03:22 36.7 89 18 138/73 99 Nasal Cannula 2.0 12/23/16 00:00 Nasal Cannula 2.0 12/22/16 23:46 37.0 89 19 171/64 100 Nasal Cannula 2.0 12/22/16 20:00 Nasal Cannula 2.0 12/22/16 19:01 36.5 91 18 162/69 98 Nasal Cannula 2.0 Laboratory Results 24 Hours: Test 12/23/16 06:43 White Blood Count 2.85 K/uL Red Blood Count 3.13 M/uL Hemoglobin 9.0 g/dL Hematocrit 27.3 % Mean Corpuscular Volume 87.2 fL Mean Corpuscular Hemoglobin 28.8 pg Mean Corpuscular Hemoglobin Concent 33.0 g/dl Platelet Count 102 K/uL Mean Platelet Volume 8.5 fL Neutrophils (%) (Auto) 64.9 % Lymphocytes (%) (Auto) 16.8 % Monocytes (%) (Auto) 12.6 % Eosinophils (%) (Auto) 4.9 % Basophils (%) (Auto) 0.4 % Neutrophils # (Auto) 1.85 K/uL Lymphocytes # (Auto) 0.48 K/uL Monocytes # (Auto) 0.36 K/uL Eosinophils # (Auto) 0.14 K/uL Basophils # (Auto) 0.01 K/uL Assessment & Plan Assessment: Left foot chronic osteomyelitis, diabetic foot ulcer, charcot arthropathy POD 6 left lower extremity below knee amputation Plan: OOB to chair. Dressings changed today. Continue daily/PRN dressing changes. Reinforce dressings as needed. Ice and Elevate left lower extremity Pain management as per medicine. Regular Diabetic diet as ordered Will continue to follow. Will discuss findings with Dr. Ute Magallanes for DVT prophylaxis. Disposition pending per SS/Case Management. - Patient has been accepted to [facility], awaiting bed availability. Follow up with Dr. Unger as scheduled on 01/03/17 at 12:00 p.m. Discharge Planning Discharge Planning: jail facility
[2016-12-23] MEDS: ONDANSETRON INJ 2 MG/ML 2 ML VIAL IV PRN (18:12)
[2016-12-24 00:05] VITALS: O2SAT 99
[2016-12-24] MEDS: TRAMADOL HCL 50 MG TAB PO PRN (00:27)
[2016-12-24] MEDS: ACETAMINOPHEN 500 MG TAB PO SCH ×2 (00:28→09:19)
[2016-12-24] MEDS: LORAZEPAM 0.5 MG TAB PO PRN (02:24)
[2016-12-24] MEDS: LEVOTHYROXINE SODIUM PO SCH ×2 (06:26)
[2016-12-24 07:03] LABS: CREATININE 0.82 mg/dl (0.60-1.20)
[2016-12-24 07:32] VITALS: BP 127/64; PULSE 70; TEMP 36.8; O2SAT 98
[2016-12-24] MEDS: PANTOprazole SOD 40 MG TAB PO SCH (09:10)
[2016-12-24] MEDS: POTASSIUM CHLORIDE 20 MEQ TABCR PO SCH (09:11)
[2016-12-24] MEDS: SPIRONOLACTONE 25 MG TAB PO SCH (09:11)
[2016-12-24] MEDS: FERROUS GLUCONATE 324 MG TAB PO SCH (09:12)
[2016-12-24] MEDS: LACTOBACILLUS ACIDOPHILUS (FLORANEX) TAB PO SCH ×2 (09:12→13:24)
[2016-12-24] MEDS: MAGNESIUM OXIDE 400 MG TAB PO SCH (09:12)
[2016-12-24] MEDS: GUAIFENESIN 600 MG TABCR PO SCH (09:14)
[2016-12-24] MEDS: TIOTROPIUM BROMIDE 5 PUFF/90 MCG INH INH SCH (09:14)
[2016-12-24] MEDS: GABAPENTIN 300 MG CAP PO SCH ×2 (09:14→13:36)
[2016-12-24] MEDS: POLYETHYLENE (MIRALAX) 17 GM PACK PO SCH (09:15)
[2016-12-24] MEDS: DULOXETINE HCL 20 MG CAP PO SCH (09:16)
[2016-12-24] MEDS: FUROSEMIDE 20 MG TAB PO SCH (09:16)
[2016-12-24] MEDS: DIGOXIN 0.125 MG TAB PO SCH (09:17)
[2016-12-24] MEDS: ASPIRIN 81 MG ECTAB PO SCH (09:17)
[2016-12-24] MEDS: DOCUSATE SODIUM 100 MG CAP PO SCH (09:18)
[2016-12-24] MEDS: LINEZOLID 600 MG TAB PO SCH (09:19)
[2016-12-24] MEDS: FLUTICASONE/SALMETEROL 250/50 (ADVAIR) 14 PUFF/1 INHALER INH SCH (09:20)
[2016-12-24] MEDS: EUCERIN CR 120 GM JAR EXT SCH (09:20)
[2016-12-24] MEDS: ENOXAPARIN 40 MG/0.4 ML SYR SQ SCH (09:23)
--- NOTE | 2016-12-24 09:25 | Hospitalist Progress Note ---
Hospitalist Progress Note Date of Service Dec 24, 2016. Subjective Pt evaluation today including: conversation w/ patient, conversation w/ family (Son- Ramírez ), physical exam, chart review, lab review, review of studies, conversation w/ showroom consultant (BILL- Elly Osei ), review of inpatient medication list Voiding: pratt catheter in place (draining yellow/clear urine ) Patient states she is feeling well. Left BKA pain is well controlled at this time. +nausea- improving. She is eating and drinking OK. No BMs yet; she continues to pass gas. Patient denies any fever, chills, sweats, lightheadedness , dizziness, vision changes, CP, palpitations, edema, SOB, wheezing, cough, abdominal pain, vomiting, diarrhea, urinary symptoms, melena, numbness/tingling , weakness, muscle/joint pain, anxiety/depression, active bleeding, or new skin discoloration/changes. Medications Current Inpatient Medications Medications (Trade) Dose Ordered Sig/Hans Route Start Time Stop Time Status Last Admin Dose Admin Al Hydrox/Mg Hydrox/Simethicone (Maalox Max Susp) 15 ml Q4H PRN PO 12/13/16 18:15 01/12/17 18:14 Magnesium Hydroxide (Milk Of Magnesia Susp) 30 ml Q6H PRN PO 12/13/16 18:15 01/12/17 18:14 Digoxin (Lanoxin Tab) 0.125 mg QAM PO 12/14/16 09:00 01/13/17 08:59 12/23/16 08:50 0.125 MG Ferrous Gluconate (Ferrous Gluconate Tab) 324 mg DAILY PO 12/14/16 09:00 01/13/17 08:59 12/23/16 08:49 324 MG Salmeterol Xinafoate/ Fluticasone (Advair Diskus 250/50 Inh) 1 puff BID INH 12/13/16 21:00 01/12/17 20:59 12/23/16 21:09 1 PUFF Furosemide (Lasix Tab) 20 mg DAILY PO 12/14/16 09:00 01/13/17 08:59 12/23/16 08:33 20 MG Acetaminophen/ Hydrocodone Bitart ([place] 5/325 Tab) 1 tab Q6H PRN PO 12/13/16 18:15 12/27/16 18:14 Future Hold 12/20/16 13:18 1 TAB Lactobacillus Acidophilus (Floranex Tab) 2 tab TIDM PO 12/14/16 08:30 01/13/17 08:29 12/23/16 18:19 2 TAB Magnesium Oxide (Mag-Ox Tab) 400 mg BID PO 12/13/16 21:00 01/12/17 20:59 12/23/16 21:11 400 MG Nitroglycerin (Nitrostat Tab) 0.4 mg DAILY PRN SL 12/13/16 18:15 01/12/17 18:14 Potassium Chloride (Klor-Con Tab) 20 meq DAILY PO 12/14/16 09:00 01/13/17 08:59 12/23/16 08:50 20 MEQ Spironolactone (Aldactone Tab) 25 mg QAM PO 12/14/16 09:00 01/13/17 08:59 12/23/16 08:32 25 MG Theophylline (Paul-Dur Extended Rel Tab) 600 mg HS PO 12/13/16 21:00 01/12/17 20:59 Future Hold 12/21/16 20:33 600 MG Tiotropium [place] (Spiriva Handihaler Inhaler) 1 puff DAILY INH 12/14/16 09:00 01/13/17 08:59 12/23/16 08:35 1 PUFF Tramadol HCl (Ultram Tab) 50 mg Q8H PRN PO 12/13/16 18:15 01/12/17 18:14 12/24/16 00:27 50 MG Multi-Ingredient Ointment (Eucerin Unscented Cr) 1 appln BID EXT 12/13/16 21:00 01/12/17 20:59 12/23/16 08:55 1 APPLN Pantoprazole Sodium (Protonix Tab) 40 mg QAM PO 12/14/16 09:00 01/13/17 08:59 12/23/16 08:32 40 MG Levothyroxine Sodium/ Levothyroxine Sodium (Synthroid Tab/ Synthroid Tab) 250 mcg DAILYBB PO 12/14/16 06:00 01/13/17 05:59 12/24/16 06:26 250 MCG Glucose (Glucose 40% Gel) 15-30 GRAMS 15 GRAMS... UD PRN PO 12/14/16 19:00 01/13/17 18:59 Glucose (Glucose Chew Tab) 4-8 Tablets 4 Tabl... UD PRN PO 12/14/16 19:00 01/13/17 18:59 Dextrose (Dextrose 50% 50ML Syringe) 25-50ML OF 50% DW IV FOR... UD PRN IV 12/14/16 19:00 01/13/17 18:59 Glucagon (Glucagon Inj) 1 mg UD PRN SQ 12/14/16 19:00 01/13/17 18:59 Sodium Chloride ([place] Nasal [place]) 1 sprays QID PRN NA 12/15/16 12:45 01/14/17 12:44 Polyethylene (Miralax Powder Packet) 17 gm BID PO 12/16/16 09:30 01/15/17 09:29 12/23/16 21:11 17 GM Insulin Aspart (novoLOG ASPART) SLIDING SCALE G... ACHS SC 12/18/16 07:00 01/17/17 06:59 12/23/16 18:23 9 UNITS Linezolid (Zyvox Tab) 600 mg BID PO 12/18/16 18:00 12/24/16 23:59 12/23/16 21:12 600 MG Ondansetron HCl (Zofran Inj) 4 mg Q4H PRN IV 12/19/16 08:45 01/18/17 08:44 12/23/16 18:12 4 MG Guaifenesin (Mucinex Contr Rel Tab) 600 mg Q12 PO 12/19/16 09:00 01/18/17 08:59 12/23/16 21:12 600 MG Enteral Nutritional Formula (Boost Glucose Control) 1 can BIDM PO 12/19/16 16:45 01/18/17 16:44 12/22/16 07:39 1 CAN Lorazepam (Ativan Tab) 0.5 mg BID PRN PO 12/20/16 11:45 01/19/17 11:44 12/24/16 02:24 0.5 MG Levofloxacin (Levaquin Tab) 750 mg DAILY@11 PO 12/20/16 13:00 12/24/16 10:59 12/23/16 11:40 750 MG Levofloxacin (Consult) 1 ea UD PRN N/A 12/20/16 13:45 01/19/17 13:44 Acetaminophen (Tylenol Tab) 1,000 mg Q8H PO 12/20/16 17:00 01/19/17 16:59 12/24/16 00:28 1,000 MG Bisacodyl (Dulcolax Tab) 5 mg QAM PO 12/21/16 09:00 01/20/17 08:59 12/23/16 08:49 5 MG Docusate Sodium (coLACE CAP) 100 mg BID PO 12/20/16 21:00 01/19/17 20:59 12/23/16 21:10 100 MG Duloxetine HCl (Cymbalta Cap) 20 mg QAM PO 12/21/16 09:00 01/20/17 08:59 12/23/16 08:34 20 MG Aspirin (Ecotrin Tab) 81 mg QAM PO 12/22/16 09:00 01/21/17 08:59 12/23/16 08:32 81 MG Gabapentin (Neurontin Cap) 300 mg TID PO 12/22/16 14:00 01/21/17 13:59 12/23/16 21:12 300 MG Morphine Sulfate (Oramorph Sr Tab) 30 mg Q12H PO 12/23/16 10:15 01/06/17 10:14 12/23/16 22:21 30 MG Enoxaparin Sodium (Lovenox Inj) 40 mg QAM SQ 12/23/16 10:30 01/22/17 10:29 12/23/16 11:39 40 MG Objective Vital Signs Date Time Temp Pulse Resp B/P Pulse Ox O2 Delivery O2 Flow Rate FiO2 12/24/16 08:16 Nasal Cannula 2.0 12/24/16 07:32 36.8 70 18 127/64 98 Room Air 12/24/16 00:05 99 Nasal Cannula 2.0 12/23/16 23:15 36.6 77 16 129/69 99 Nasal Cannula 2.0 12/23/16 15:53 Nasal Cannula 2.0 12/23/16 15:41 36.4 84 18 163/74 100 Nasal Cannula 2.0 12/23/16 14:10 Room Air 12/23/16 14:10 36.5 84 18 174/67 100 Nasal Cannula 2.0 12/23/16 13:19 36.5 82 19 98 2.0 12/23/16 12:08 36.5 82 19 128/63 98 Nasal Cannula 2.0 12/23/16 12:00 Nasal Cannula 2.0 Physical Exam General Appearance: no apparent distress, + obese Eyes: normal inspection, PERRL ENT: hearing grossly normal Neck: supple Respiratory/Chest: lungs clear, no respiratory distress, no accessory muscle use Cardiovascular: + systolic murmur, + irregularly irregular (rate controlled ) Abdomen: normal bowel sounds, non tender, + distended (mild distention ) Extremities: + swelling (+1 pitting edema of right lower extremity), + pertinent finding (left BKA wrapped in clean dressing ) Neurologic/Psychiatric: alert, normal mood/affect, oriented x 3 Skin: normal color, warm/dry, no rash Laboratory Results Last 24 Hours Test 12/23/16 11:14 12/23/16 14:22 12/23/16 17:08 12/23/16 20:47 Bedside Glucose 138 mg/dl 170 mg/dl 141 mg/dl 100 mg/dl Test 12/23/16 22:26 12/24/16 02:27 12/24/16 06:20 12/24/16 08:14 Bedside Glucose 108 mg/dl 137 mg/dl 117 mg/dl Creatinine 0.82 mg/dl Est Creatinine Clear Calc Drug Dose 66.7 ml/min Estimated GFR () 82.9 Estimated GFR (Non- 71.5 Digoxin Level 0.9 ng/ml Assessment and Plan 71 y/o female with a history of chronic lower extremity wounds, T2DM, CAD, HTN, diastolic CHF, a.fib, hypothyroidism, COPD, and GERD who presented to the ED with a worsening LLE wound. New right-sided weakness and paresthesias on 12/21, ?TIA vs. anxiety- RESOLVED: - CT head negative - MRI negative for acute CVA - Continue ASA 81 mg daily - Passed swallow evaluation- recommended dental soft diet Left foot ulcer w/LLE cellulitis and left foot osteomyelitis--s/p left BKA on : - BCx- NG - Continue Zyvox and Levaquin; ID following--> likely d/c on 12/24 per NORA Sanabria pending evaluation - IV Morphine-->transition to MS Contin on 12/23 and scheduled Tylenol - Gabapentin 300 mg TID - Continue PT/OT - STABLE from orthopedic standpoint- f/u outpt on 01/03 at 1200 Anxiety/depression: - Psych consult - Continue Cymbalta 20 mg daily - Continue Ativan 0.5 mg BID PRN A fib- rate controlled: - Telemetry reviewed- benjamin, rate 70-80s -- Transfer to med/surg on 12/23 - Continue Diltiazem 240 mgQAM, Digoxin 125 mcg qd -- Digoxin level WNL on 12/24 - Outpatient Xarelto has been on hold due to surgery and anemia - Heparin drip with no bolus d/c'd due to hematuria Nausea- IMPROVING: - KUB no evidence of ileus - Zofran PRN Constipation, likely secondary to pain meds/anorexia- last BM on 12/19: - Tolerating diet - Continue aggressive bowel regimen: Colace BID, MiraLAX BID and Dulcolax daily Acute on chronic anemia- received 2 units PRBCs on 12/16 and 2 units PRBCs on : - Continue to monitor H&H Abnormal marrow signal on MRI in the setting of pancytopenia: - May need outpatient work up - Peripheral smear/path - Check SPEP COPD with chronic respiratory failure- STABLE: - Theophylline level 29 on 12/22--> HOLD Theophylline 600 mg HS due to toxicity - Continue Advair 1 puff inh BID, and Spiriva - O2 protocol--> wears 2L O2 supplement 31/03 at home Chronic diastolic CHF- STABLE: - Continue Spironolactone 25 mg QAM and Lasix 20 mg qd - Monitor I&Os T2DM: BSG ACHS w/ sliding insulin scale CKD stage 3- STABLE Hypothyroidism: - Continue Synthroid 250 mcg PO qd - TSH on 12/17 WNL DVT prophylaxis: Lovenox 40 mg SQ q24 hrs, SCDs Code Status: Level V, DO NOT RESUSCITATE Dispo: Hopeful discharge to [facility] tomorrow
[2016-12-24] MEDS: BISACODYL 5 MG TABEC PO SCH (09:29)
[2016-12-24] MEDS: BOOST GLUCOSE CONTROL PO SCH (09:29)
[2016-12-24] MEDS: INSULIN ASPART 100 UNITS/ML 3 ML PEN SC SCH ×2 (09:31→13:33)
[2016-12-24] MEDS: MoRPHine SULFATE CR 15 MG TAB (MS CONTIN) PO SCH (09:41)
--- NOTE | 2016-12-24 10:35 | Infectious Disease Progress Nt ---
Progress Note Date of Service Dec 24, 2016. Subjective Pt evaluation today including: conversation w/ patient, physical exam, chart review, lab review, review of studies, conversation w/ financial services education consultant (Dr. Carrera , Carole George PA-C, Dee Bills PA-C), review of inpatient medication list Patient's creatinine was 0.82 this morning. WBC count was 2.85, and Hgb stable at 9.0. Patient states that her left incision site pain is improving. She states that her pain is relatively well controlled when she is in bed. Her pain really is only increased when her dressing is changed or her leg is moved. Repeat blood cultures finalized with no growth. She is on day 7 of Zyvox and Levaquin following left BKA. Patient did have an MRI of her brain due to some weakness which showed moderate atrophy, 5 mm possible tiny meningioma, and no acute intracranial findings. All Other Systems: Reviewed and Negative Medications Current Inpatient Medications Medications (Trade) Dose Ordered Sig/Hans Route Start Time Stop Time Status Last Admin Dose Admin Al Hydrox/Mg Hydrox/Simethicone (Maalox Max Susp) 15 ml Q4H PRN PO 12/13/16 18:15 01/12/17 18:14 Magnesium Hydroxide (Milk Of Magnesia Susp) 30 ml Q6H PRN PO 12/13/16 18:15 01/12/17 18:14 Digoxin (Lanoxin Tab) 0.125 mg QAM PO 12/14/16 09:00 01/13/17 08:59 12/24/16 09:17 0.125 MG Ferrous Gluconate (Ferrous Gluconate Tab) 324 mg DAILY PO 12/14/16 09:00 01/13/17 08:59 12/24/16 09:12 324 MG Salmeterol Xinafoate/ Fluticasone (Advair Diskus 250/50 Inh) 1 puff BID INH 12/13/16 21:00 01/12/17 20:59 12/24/16 09:20 1 PUFF Furosemide (Lasix Tab) 20 mg DAILY PO 12/14/16 09:00 01/13/17 08:59 12/24/16 09:16 20 MG Acetaminophen/ Hydrocodone Bitart ([place] 5/325 Tab) 1 tab Q6H PRN PO 12/13/16 18:15 12/27/16 18:14 Future Hold 12/20/16 13:18 1 TAB Lactobacillus Acidophilus (Floranex Tab) 2 tab TIDM PO 12/14/16 08:30 01/13/17 08:29 12/24/16 09:12 2 TAB Magnesium Oxide (Mag-Ox Tab) 400 mg BID PO 12/13/16 21:00 01/12/17 20:59 12/24/16 09:12 400 MG Nitroglycerin (Nitrostat Tab) 0.4 mg DAILY PRN SL 12/13/16 18:15 01/12/17 18:14 Potassium Chloride (Klor-Con Tab) 20 meq DAILY PO 12/14/16 09:00 01/13/17 08:59 12/24/16 09:11 20 MEQ Spironolactone (Aldactone Tab) 25 mg QAM PO 12/14/16 09:00 01/13/17 08:59 12/24/16 09:11 25 MG Theophylline (Paul-Dur Extended Rel Tab) 600 mg HS PO 12/13/16 21:00 01/12/17 20:59 Future Hold 12/21/16 20:33 600 MG Tiotropium [place] (Spiriva Handihaler Inhaler) 1 puff DAILY INH 12/14/16 09:00 01/13/17 08:59 12/24/16 09:14 1 PUFF Tramadol HCl (Ultram Tab) 50 mg Q8H PRN PO 12/13/16 18:15 01/12/17 18:14 12/24/16 00:27 50 MG Multi-Ingredient Ointment (Eucerin Unscented Cr) 1 appln BID EXT 12/13/16 21:00 01/12/17 20:59 12/24/16 09:20 1 APPLN Pantoprazole Sodium (Protonix Tab) 40 mg QAM PO 12/14/16 09:00 01/13/17 08:59 12/24/16 09:10 40 MG Levothyroxine Sodium/ Levothyroxine Sodium (Synthroid Tab/ Synthroid Tab) 250 mcg DAILYBB PO 12/14/16 06:00 01/13/17 05:59 12/24/16 06:26 250 MCG Glucose (Glucose 40% Gel) 15-30 GRAMS 15 GRAMS... UD PRN PO 12/14/16 19:00 01/13/17 18:59 Glucose (Glucose Chew Tab) 4-8 Tablets 4 Tabl... UD PRN PO 12/14/16 19:00 01/13/17 18:59 Dextrose (Dextrose 50% 50ML Syringe) 25-50ML OF 50% DW IV FOR... UD PRN IV 12/14/16 19:00 01/13/17 18:59 Glucagon (Glucagon Inj) 1 mg UD PRN SQ 12/14/16 19:00 01/13/17 18:59 Sodium Chloride (Pastos Nasal [place]) 1 sprays QID PRN NA 12/15/16 12:45 01/14/17 12:44 Polyethylene (Miralax Powder Packet) 17 gm BID PO 12/16/16 09:30 01/15/17 09:29 12/24/16 09:15 17 GM Insulin Aspart (novoLOG ASPART) SLIDING SCALE G... ACHS SC 12/18/16 07:00 01/17/17 06:59 12/24/16 09:31 9 UNITS Linezolid (Zyvox Tab) 600 mg BID PO 12/18/16 18:00 12/24/16 23:59 12/24/16 09:19 600 MG Ondansetron HCl (Zofran Inj) 4 mg Q4H PRN IV 12/19/16 08:45 01/18/17 08:44 12/23/16 18:12 4 MG Guaifenesin (Mucinex Contr Rel Tab) 600 mg Q12 PO 12/19/16 09:00 01/18/17 08:59 12/24/16 09:14 600 MG Enteral Nutritional Formula (Boost Glucose Control) 1 can BIDM PO 12/19/16 16:45 01/18/17 16:44 12/24/16 09:29 1 CAN Lorazepam (Ativan Tab) 0.5 mg BID PRN PO 12/20/16 11:45 01/19/17 11:44 12/24/16 02:24 0.5 MG Levofloxacin (Levaquin Tab) 750 mg DAILY@11 PO 12/20/16 13:00 12/24/16 10:59 12/23/16 11:40 750 MG Levofloxacin (Consult) 1 ea UD PRN N/A 12/20/16 13:45 01/19/17 13:44 Acetaminophen (Tylenol Tab) 1,000 mg Q8H PO 12/20/16 17:00 01/19/17 16:59 12/24/16 09:19 1,000 MG Bisacodyl (Dulcolax Tab) 5 mg QAM PO 12/21/16 09:00 01/20/17 08:59 12/24/16 09:29 5 MG Docusate Sodium (coLACE CAP) 100 mg BID PO 12/20/16 21:00 01/19/17 20:59 12/24/16 09:18 100 MG Duloxetine HCl (Cymbalta Cap) 20 mg QAM PO 12/21/16 09:00 01/20/17 08:59 12/24/16 09:16 20 MG Aspirin (Ecotrin Tab) 81 mg QAM PO 12/22/16 09:00 01/21/17 08:59 12/24/16 09:17 81 MG Gabapentin (Neurontin Cap) 300 mg TID PO 12/22/16 14:00 01/21/17 13:59 12/24/16 09:14 300 MG Morphine Sulfate (Oramorph Sr Tab) 30 mg Q12H PO 12/23/16 10:15 01/06/17 10:14 12/24/16 09:41 30 MG Enoxaparin Sodium (Lovenox Inj) 40 mg QAM SQ 12/23/16 10:30 01/22/17 10:29 12/24/16 09:23 40 MG Objective Vital Signs Date Time Temp Pulse Resp B/P Pulse Ox O2 Delivery O2 Flow Rate FiO2 12/24/16 09:17 70 12/24/16 08:16 Nasal Cannula 2.0 12/24/16 07:32 36.8 70 18 127/64 98 Room Air 12/24/16 00:05 99 Nasal Cannula 2.0 12/23/16 23:15 36.6 77 16 129/69 99 Nasal Cannula 2.0 12/23/16 15:53 Nasal Cannula 2.0 12/23/16 15:41 36.4 84 18 163/74 100 Nasal Cannula 2.0 12/23/16 14:10 Room Air 12/23/16 14:10 36.5 84 18 174/67 100 Nasal Cannula 2.0 4/17/17 13:19 36.5 82 19 98 2.0 12/23/16 12:08 36.5 82 19 128/63 98 Nasal Cannula 2.0 12/23/16 12:00 Nasal Cannula 2.0 Physical Exam General Appearance: no apparent distress Eyes: normal inspection, sclerae normal ENT: hearing grossly normal Neck: supple, trachea midline Respiratory/Chest: no respiratory distress, no accessory muscle use Cardiovascular: + pertinent finding (regular rate) Extremities: + pertinent finding (mild edema noted surrounding left BKA incision. Very tender to palpation. ) Skin: warm/dry, no rash, + pertinent finding (very mild purplish discoloration around left BKA incision. Incision appears to be healing well, surgical sutures in place. Very minimal drainage on bandages) Laboratory Results MRI OF THE BRAIN WITHOUT AND WITH IV CONTRAST CLINICAL HISTORY: New right-sided weakness. COMPARISON STUDY: Head CT T performed earlier today. TECHNIQUE: Utilizing a 1.5 Alejandrina magnet and dedicated coil, multiplanar, multiecho imaging of the brain was performed pre and postcontrast administration. IV administration of 9.9 mL of Gadavist contrast was uneventful. FINDINGS: This exam is mildly compromised by motion artifact. There are no areas of restricted diffusion. No acute intracranial hemorrhage, midline shift or mass effect is present. Ventricular system is unremarkable for age. Moderate cerebral atrophy. There is a 5 mm enhancing extra-axial lesion along the undersurface of the right tentorium. A few white matter T2 hyperintense foci suggest mild small vessel disease. There is a tiny air-fluid level within the right maxillary sinus. There is a small amount of fluid within the bilateral mastoid air cells. Marrow signal within the calvarium is diminished. IMPRESSION: 1. No acute intracranial findings. 2. Moderate atrophy and minimal small vessel disease. 3. 5 mm enhancing extra-axial lesion along the right tentorium which suggests a tiny meningioma. 4. Diminished marrow signal within the calvarium on T1 weighted sequences, a nonspecific finding that could reflect a marrow proliferative or replacement process. Last 24 Hours Test 12/23/16 11:14 12/23/16 14:22 12/23/16 17:08 12/23/16 20:47 Bedside Glucose 138 mg/dl 170 mg/dl 141 mg/dl 100 mg/dl Test 12/23/16 22:26 12/24/16 02:27 12/24/16 06:20 12/24/16 08:14 Bedside Glucose 108 mg/dl 137 mg/dl 117 mg/dl Creatinine 0.82 mg/dl Est Creatinine Clear Calc Drug Dose 66.7 ml/min Estimated GFR () 82.9 Estimated GFR (Non- 71.5 Digoxin Level 0.9 ng/ml Assessment and Plan Diabetic female with chronic left lower extremity wounds and underlying osteomyelitis now s/p left BKA. Currently the patient is on Levaquin and Linezolid. She has completed 7 days of abx therapy post-BKA and her wound appears to be healing well. Feel that this patient can D/C abx therapy and be followed closely. Thank you Case reviewed and agree with above assessment.
[2016-12-24] MEDS ORDERED: ATV5 PO (10:47)
[2016-12-24] MEDS ORDERED: MRPSR15 PO (10:47)
[2016-12-24] MEDS ORDERED: CYM20 PO (10:47)
[2016-12-24] MEDS ORDERED: NRN300 PO (10:47)
[2016-12-24] MEDS ORDERED: XRL10 PO (10:52)
--- NOTE | 2016-12-24 10:55 | Discharge Instructions ---
Discharge Instructions Date of Service Dec 24, 2016. Admission Reason for Admission: Osteomyelitis Of Left Foot Discharge Discharge Diagnosis / Problem: Osteomyelitis of left foot s/p left BKA Discharge Goals Goal(s): Decrease discomfort, Improve function, Increase independence, Improve disease control, Learn about illness, Diagnostic testing, Therapeutic intervention, Prevent Disease Progression Activity Recommendations Activity Level: Assistance Required Therapies: Physical Therapy, Occupational Therapy . Additional Information Patient informed of condition: Yes Advance Directives: No DNR: Yes Level of Care: Acute Rehab Communicable Disease: No Prognosis: Stable Oxygen at (LPM): 2L [place] Catheter: Yes Instructions / Follow-Up Instructions / Follow-Up New/changed medications: 1. Resume Xarelto 20 mg by mouth daily 2. STOP Theophylline 3. Gabapentin 300 mg by mouth three times per day 4. MS Contin 30 mg by mouth every 12 hours for pain control 5. Duloxetine 20 mg by mouth daily 6. Ativan 0.5 mg by mouth twice per day as needed for anxiousness You have completed your course of antibiotic treatment. Resume all other regular home medications as prescribed Please follow-up with [facility] provider in 24-48 hours Follow-up with Orthopedics as scheduled on 01/03 Please follow-up/keep all of your subspecialty appointments Current Hospital Diet Patient's current hospital diet: Diabetes Type 2 Diet Discharge Diet Recommended Diet: Diabetes Type 2 Diet Procedures Procedures Performed: Below knee amputation- Left leg Pending Studies Studies pending at discharge: no Physician Orders On Transfer Special Precautions: Fall precautions Xarelto has been resumed at discharged- this medication was held secondary to procedure/anemia- recommend following H&H Patient has been pancytopenic during hospital stay- has been stable- recommend repeating CBC in a few days to asses- if worsening, recommend referral to hematology/oncology. Theophylline has been held due to toxic level- recommend repeating level in a few days to asses restarting Medical Emergencies . Who to Call and When: Medical Emergencies: If at any time you feel your situation is an emergency, please call 911 immediately. . Non-Emergent Contact Non-Emergency issues call your: Primary Care Provider . . "Provider Documentation" section prepared by Dee Bills. Core Measure Problem Core Measures: None
--- NOTE | 2016-12-24 11:40 | Discharge Summary ---
Discharge Summary Date of Service Dec 24, 2016. (Dee Bills, NORA) Discharge Summary Admission Date: Dec 13, 2016 at 18:15 Discharge Date: Dec 24, 2016 Discharge Disposition: Rehab Principal Diagnosis: Osteomyelitis of LLE s/p left BKA Problems/Secondary Diagnoses: New right-sided weakness and paresthesias on 12/21, ?TIA vs. anxiety Left foot ulcer w/LLE cellulitis and left foot osteomyelitis--s/p left BKA on Anxiety/depression A fib- rate controlled Nausea Constipation Acute on chronic anemia- received 2 units PRBCs on 12/16 and 2 units PRBCs on Abnormal marrow signal on MRI in the setting of pancytopenia COPD with chronic respiratory failure Chronic diastolic CHF T2DM CKD stage 3 Hypothyroidism Immunizations: Have You Had Influenza Vaccine: Unknown Influenza Vaccine Date: Jun 23, 2013 History of Tetanus Vaccine?: Unknown History of Pneumococcal: Unknown Pneumococcal Date: Jun 23, 2011 History of Hepatitis B Vaccine: Unknown Procedures: Operative Date Dec 17, 2016. Pre-Operative Diagnosis Left foot chronic osteomyelitis, charcot arthropathy Post-Operative Diagnosis same Procedure(s) Performed Below knee amputation- Left leg Surgeon Dr Unger Oil Changer Surgeon(s) Dominga BUSTOS Estimated Blood Loss 200 Findings open draining wound left foot Specimens A. Left leg-Below the knee amputation Drains 1 Anesthesia general Complication(s) None Disposition PCU <Electronically signed by Ktoa Unger M.D.> Signed: 12/17/16 1634 Signed: The status of this report is Signed * If report status is Draft, the document has not been finalized by the responsible provider LEFT FOOT MIN 3 VIEWS ROUTINE CLINICAL HISTORY: worsening foot wound w/ new injury and worsening pain pain. Edema. COMPARISON: CT 11/29/2016 DISCUSSION: Extensive destructive changes of the distal tibia fibula talus as well as anterior calcaneus are again noted. A radiopaque density has been inserted adjacent to the pre-existing residual component of the anterior calcaneus which potentially relates to a therapeutic implant, although that history is not provided.. Mild deformity of all remaining osseous structures. Generalized osteopenia. Distraction of significant components of the tarsal region. Generalized soft tissue edema. IMPRESSION: Findings consistent with diffuse osteomyelitis primarily involving the ankle as well as components of the tarsal region. Generalized soft tissue edematous change. Possibility of mildly progressive osteomyelitis must be considered. No evidence for an acute fracture Electronically signed by: Castillo Thompson M.D. 12/13/2016 4:00 PM Dictated Date/Time: 12/13/2016 3:55 PM The status of this report is Signed. Draft = Not yet reviewed or approved by Radiologist. Signed = Reviewed and approved by Radiologist. LEFT LEG ARTERIAL DOPPLER STUDY CLINICAL HISTORY: left foot osteomyelitis. COMPARISON STUDY: Bilateral lower arterial Doppler study 06/24/2016. FINDINGS: The patient was unable to tolerate the ankle brachial indices. Calcified plaque throughout the left lower extremity arterial system. Monophasic waveforms throughout the left lower extremity arterial system. No areas of arterial occlusion. Elevated peak velocities seen within the left common femoral, superficial femoral, popliteal, posterior to right suggesting mild stenosis. These measure up to 283 cm/s within the distal left superficial femoral artery. IMPRESSION: 1. Diffuse calcified plaque within the left lower arterial system without evidence for arterial occlusion. 2. Elevated peak systolic velocities within the left common femoral, superficial femoral, popliteal, and posterior tibial artery suggesting mild stenosis. 3. Monophasic waveforms throughout the left lower extremity arterial system. This could proximal proximal stenosis within the iliac arteries. Electronically signed by: Alexander Herman M.D. 12/16/2016 12:06 PM Dictated Date/Time: 12/16/2016 12:01 PM The status of this report is Signed. Draft = Not yet reviewed or approved by Radiologist. Signed = Reviewed and approved by Radiologist. SINGLE VIEW CHEST CLINICAL HISTORY: COPD. FINDINGS: An AP, portable, upright chest radiograph is compared to study dated . The examination is degraded by portable technique and patient rotation. The heart is enlarged and there is atherosclerotic calcification of the thoracic aorta. There is mild pulmonary vascular congestion. Chronic interstitial thickening is unchanged. No airspace consolidation is seen typical for pneumonia. Trace pleural effusions are suspected. No pneumothorax is seen. The skeletal structures are osteopenic. The bony thorax is grossly intact. IMPRESSION: 1. Cardiomegaly with mild pulmonary vascular congestion. 2. Trace pleural effusions are suspected. Electronically signed by: Rahul Early M.D. 12/17/2016 7:49 AM Dictated Date/Time: 12/17/2016 7:48 AM The status of this report is Signed. Draft = Not yet reviewed or approved by Radiologist. Signed = Reviewed and approved by Radiologist. LEFT KNEE 2 VIEWS HISTORY: Postop. S/p Left below knee amputation; entire amputation site distally COMPARISON: Left lower leg 12/11/2016. FINDINGS: The patient is status post a below the knee amputation. There are surgical drains at the resection site. Otherwise, no radiopaque foreign bodies. Mild to moderate osteoarthritis within the left knee. No fracture or dislocation. IMPRESSION: Status post below the knee amputation. Surgical drains are in place. Electronically signed by: Alexander Herman M.D. 12/17/2016 5:42 PM Dictated Date/Time: 12/17/2016 5:40 PM The status of this report is Signed. Draft = Not yet reviewed or approved by Radiologist. Signed = Reviewed and approved by Radiologist. KUB CLINICAL HISTORY: Generalized abdominal pain. FINDINGS: An AP, portable, supine abdominal radiograph is correlated with abdominal CT dated 09/19/2016. There is a nonobstructed abdominal bowel gas pattern. No evidence of intraperitoneal free air is seen on this supine view. There are no abnormal abdominal calcifications. Cholecystectomy clips are identified. Large phleboliths are identified in the pelvis. The skeletal structures are osteopenic. Lumbosacral spondylosis is observed. The bony pelvis is intact as visualized. IMPRESSION: Nonobstructed abdominal bowel gas pattern. Electronically signed by: Rahul Early M.D. 12/20/2016 7:58 PM Dictated Date/Time: 12/20/2016 7:57 PM The status of this report is Signed. Draft = Not yet reviewed or approved by Radiologist. Signed = Reviewed and approved by Radiologist. HEAD CT NONCONTRAST CT DOSE: 537.48 mGy.cm HISTORY: numbness R side of her body r/o CVA TECHNIQUE: Multiaxial CT images of the head were performed without the use of intravenous contrast. Automated exposure control was utilized for this study. Comparison: Head CT 09/19/2016. Findings: Trace fluid within the right maxillary sinus. The mastoid air cells are clear. The calvarium and skull base are intact. There is no mass, hematoma, midline shift, acute infarct. White matter hypodensity is nonspecific but suggestive of microvascular ischemic change. The ventricles and sulci demonstrate mild age-related involutional changes. Impression: No acute intracranial abnormality. Electronically signed by: Alexander Herman M.D. 12/21/2016 9:01 AM Dictated Date/Time: 12/21/2016 8:57 AM The status of this report is Signed. Draft = Not yet reviewed or approved by Radiologist. Signed = Reviewed and approved by Radiologist. MRI OF THE BRAIN WITHOUT AND WITH IV CONTRAST CLINICAL HISTORY: New right-sided weakness. COMPARISON STUDY: Head CT T performed earlier today. TECHNIQUE: Utilizing a 1.5 Alejandrina magnet and dedicated coil, multiplanar, multiecho imaging of the brain was performed pre and postcontrast administration. IV administration of 9.9 mL of Gadavist contrast was uneventful. FINDINGS: This exam is mildly compromised by motion artifact. There are no areas of restricted diffusion. No acute intracranial hemorrhage, midline shift or mass effect is present. Ventricular system is unremarkable for age. Moderate cerebral atrophy. There is a 5 mm enhancing extra-axial lesion along the undersurface of the right tentorium. A few white matter T2 hyperintense foci suggest mild small vessel disease. There is a tiny air-fluid level within the right maxillary sinus. There is a small amount of fluid within the bilateral mastoid air cells. Marrow signal within the calvarium is diminished. IMPRESSION: 1. No acute intracranial findings. 2. Moderate atrophy and minimal small vessel disease. 3. 5 mm enhancing extra-axial lesion along the right tentorium which suggests a tiny meningioma. 4. Diminished marrow signal within the calvarium on T1 weighted sequences, a nonspecific finding that could reflect a marrow proliferative or replacement process. Electronically signed by: Joe Rajput M.D. 12/21/2016 3:29 PM Dictated Date/Time: 12/21/2016 3:22 PM The status of this report is Signed. Draft = Not yet reviewed or approved by Radiologist. Signed = Reviewed and approved by Radiologist. Consultations: Vascular surgery Infectious disease Orthopedics (Dee Bills PA-C) Medication Reconciliation New Medications: Rivaroxaban (Xarelto) 10 Mg Tab 2 TAB PO DAILY for 10 Days, #20 TAB Duloxetine HCl (Duloxetine HCl) 20 Mg Cap 20 MG PO QAM for 30 Days, #30 CAP Gabapentin (Gabapentin) 300 Mg Cap 300 MG PO TID for 30 Days, #90 CAP Lorazepam (Lorazepam) 0.5 Mg Tab 0.5 MG PO BID PRN for Anxiety for 30 Days, #60 TAB Morphine Sulfate (Morphine Sulfate ER) 15 Mg Tabcr 30 MG PO Q12H for 3 Days, #12 TABS Continued Medications: Acetaminophen (Tylenol) 325 Mg Tab 650 MG PO Q8H PRN for mild pain or fever, TAB Digoxin (Digoxin) 0.125 Mg Tab 0.125 MCG PO QAM Diltiazem Hcl Extended Release (Diltiazem Hcl) 240 Mg Cap 240 MG PO QAM Emollient (Eucerin) 1 Lot Lot 1 APPLN TOP BID apply to legs Ferrous Gluconate (Ferrous Gluconate) 324 Mg Tab 324 MG PO DAILY, TAB Fluticasone Prop/Salmeterol (Advair Diskus 250/50 60 Dose) 1 Ea Aerp 1 PUFF INH BID, INHALER Furosemide (Lasix) 20 Mg Tab 1 TAB PO DAILY for 30 Days, #30 TAB 5 Refills Hydrocodone/Acetaminophen 5MG/325MG ([place] 5MG/325MG) Tab 1 TAB PO Q6H PRN for mod Pain for 30 Days, #30 TAB PRN PAIN Insulin Aspart (Novolog Flexpen) 100 Units/Ml Inj 0 UNITS SC ACHS, #1 Lactobacillus Acidophilus (Floranex) 1 Tab Tab 2 TAB PO TIDM, #90 TAB Levothyroxine Sodium (Levothyroxine Sodium) 50 Mcg Tab 50 MCG PO DAILY, TAB TAKE WITH 200MCG = 250MCG DAILY. Levothyroxine Sodium (Synthroid) 200 Mcg Tab 200 MCG PO DAILY TAKE WITH 50MCG TO TOTAL 250MCG Magnesium Oxide (Mag-Ox) 400 Mg Tab 400 MG PO BID, TAB Nitroglycerin (Nitrostat) 0.4 Mg Tab 0.4 MG UT PRN, BTL NEEDED FOR CHEST PAIN : ONE TABLET, UNDER THE TONGUE, EVERY 5 MINUTES UP TO 3 DOSES. Omeprazole (Prilosec) 20 Mg Cap 20 MG PO DAILY, CAP Oxygen (Oxygen) Gas 3 LITERS NA CONTINOUS Polyethylene Glycol 3350 (Miralax) 1 Pow Pow 17 GM PO DAILY PRN for Constipation, #527 GM Potassium Chloride (Klor-Con M20) 20 Meq Tabcr 20 MEQ PO DAILY for 30 Days, #30 TAB 2 Refills Spironolactone (Spironolactone) 25 Mg Tab 25 MG PO QAM for 30 Days, #30 TAB Tiotropium [place] (Spiriva Handihaler) 30 Puff/540 Mcg Aerp 1 CAP INH DAILY, INHALER Tramadol (Ultram) 50 Mg Tab 50 MG PO Q8H PRN for Pain for 30 Days, #30 TAB Discontinued Medications: Levofloxacin (Levaquin) 500 Mg Tab 500 MG PO DAILY for 30 Days, #30 TAB Linezolid (Zyvox) 600 Mg Tab 600 MG PO BID for 30 Days, #60 TAB Theophylline (Theophylline Cr) 300 Mg Tab 600 MG PO HS Discharge Exam Review of Systems: Constitutional: No chills, No fatigue, No fever, No sweats, No weakness Respiratory: No cough, No hemoptysis, No shortness of breath Cardiovascular: No chest pain, No edema, No palpitations Abdomen: + constipation, + nausea, No diarrhea, No pain, No vomiting Genitourinary - Female: No dysuria, No hematuria Neurologic: No memory loss Psychiatric: No anxiety, No depression symptoms Hematologic / Lymphatic: No abnormal bleeding/bruising Integumentary: No itch, No new/changing skin lesions, No rash Physical Exam: General Appearance: no apparent distress, + obese Eyes: normal inspection, PERRL ENT: hearing grossly normal Neck: supple Respiratory/Chest: lungs clear, no respiratory distress, no accessory muscle use Cardiovascular: + systolic murmur, + irregularly irregular (rate controlled ) Abdomen / GI: normal bowel sounds, non tender, soft Extremities: no calf tenderness, + swelling (trace pitting edema of right lower extremity ), + pertinent finding (left BKA wrapped in clean dressing ) Neurologic/Psychiatric: alert, normal mood/affect, oriented x 3 Skin: normal color, warm/dry, no rash (Dee Bills, PA-C) Hospital Course 71 y/o female with a history of chronic lower extremity wounds, T2DM, CAD, HTN, diastolic CHF, a.fib, hypothyroidism, COPD, and GERD who presented to the ED with a worsening LLE wound. New right-sided weakness and paresthesias on 12/21, ?TIA vs. anxiety- RESOLVED: - CT head negative - MRI negative for acute CVA - Continue ASA 81 mg daily - Passed swallow evaluation- recommended dental soft diet Left foot ulcer w/LLE cellulitis and left foot osteomyelitis--s/p left BKA on : - BCx- NG - Continue Zyvox and Levaquin; ID following--> d/c on 12/24 per ID recommendations - IV Morphine-->transition to MS Contin on 12/23 and scheduled Tylenol - Gabapentin 300 mg TID - Continue PT/OT - STABLE from orthopedic standpoint- f/u outpt on 01/03 at 1200 Anxiety/depression: - Psych consult - Continue Cymbalta 20 mg daily - Continue Ativan 0.5 mg BID PRN A fib- rate controlled: - Telemetry reviewed- a.fib, rate 70-80s -- Transfer to med/surg on 12/23 - Continue Diltiazem 240 mgQAM, Digoxin 125 mcg qd -- Digoxin level WNL on 12/24 - Outpatient Xarelto has been on hold due to surgery and anemia- resume at discharge - Heparin drip with no bolus d/c'd due to hematuria Nausea- IMPROVING: - KUB no evidence of ileus - Zofran PRN Constipation, likely secondary to pain meds/anorexia- last BM on 12/19: - Tolerating diet - Continue aggressive bowel regimen: Colace BID, MiraLAX BID and Dulcolax daily Acute on chronic anemia- received 2 units PRBCs on 12/16 and 2 units PRBCs on : - Continue to monitor H&H Abnormal marrow signal on MRI in the setting of pancytopenia: - May need outpatient work up - Peripheral smear/path - Check SPEP COPD with chronic respiratory failure- STABLE: - Theophylline level 29 on 12/22--> HOLD Theophylline 600 mg HS due to toxicity - Continue Advair 1 puff inh BID, and Spiriva - O2 protocol--> wears 2L O2 supplement 31/03 at home Chronic diastolic CHF- STABLE: - Continue Spironolactone 25 mg QAM and Lasix 20 mg qd - Monitor I&Os T2DM: BSG ACHS w/ sliding insulin scale CKD stage 3- STABLE Hypothyroidism: - Continue Synthroid 250 mcg PO qd - TSH on 12/17 WNL DVT prophylaxis: Lovenox 40 mg SQ q24 hrs, SCDs Code Status: Level V, DO NOT RESUSCITATE Dispo: Discharge to [facility] Total Time Spent: Greater than 30 minutes This includes examination of the patient, discharge planning, medication reconciliation, and communication with other providers. (Dee Bills ., PAPerfectoC) PA Physician Supervision Note: I interviewed and examined the patient. Discussed with Dee MONTERROSO and agree with findings and plan as documented in the note. Any exceptions or clarifications are listed here: None Pt was having pain at BKA site, clinically pain is better each day, for subacute rehab today vital show variable blood pressure some up some down, Car is irregular lungs are clear right leg with some edema, left BKA site examined with well healing midline incision, no redness, moderate pain to exam osteomyelitis, BKA and discussion with ID suggests stopping antibiotics on discharge pain control opiates and neurontin Afib rate control with diltiazem and digoxin Abnormal marrow on head MRI will need follow up with heme Documented By: Tirso Carrera Total Time Spent: Greater than 30 minutes (Tirso Carrera M.D.) Discharge Instructions Please refer to the electronic Patient Visit Report (Discharge Instructions) for additional information. (Dee Bills PA-C) Follow-Up Please follow-up with Sabrina Corey provider within 24-28 hours Please follow-up with Orthopedics as scheduled on 01/03 Please follow-up/keep all of your subspecialty appointments (Dee Bills PA-C) Additional Copies To Madhav Bennett
[2016-12-24 14:34] VITALS: BP 127/64; PULSE 70; TEMP 36.8; O2SAT 98
[2016-12-24 15:07] VITALS: BP 143/69; PULSE 123; TEMP 36.9; O2SAT 95
[2016-12-24 17:40] LABS: ALBUMIN 2.7 G/DL (3.8-4.8); TOTAL PROTEIN 5.7 G/DL (6.2-8.3)
[2017-01-02] MEDS ORDERED: NRN600 PO (14:36)
[2017-01-02] MEDS ORDERED: FRRS300 PO (14:36)
[2017-01-02] MEDS ORDERED: LVQ500 PO (14:36)
[2017-01-02] MEDS ORDERED: LSX40 PO (14:36)
[2017-01-02] MEDS ORDERED: LNX25 PO (14:36)
[2017-01-21] MEDS ORDERED: INSDGIPEN SC (12:54)
[2017-01-22] MEDS ORDERED: HYDR-3983 PO (15:45)
[2017-01-22] MEDS ORDERED: LORA-741 PO (15:45)
[2017-06-13] MEDS ORDERED: ASCOCRY2 (14:49)
[2017-06-13] MEDS ORDERED: MULT-116 PO (14:49)
[2017-07-03] MEDS ORDERED: GABA-113 PO (15:06)
[2017-07-03] MEDS ORDERED: SODIENE PR (15:06)
[2017-07-03] MEDS ORDERED: INSDGI SC (15:06)
[2017-07-03] MEDS ORDERED: RIVA1.5T PO (15:06)
[2017-07-03] MEDS ORDERED: COLE5GRA PO (15:06)
[2017-07-03] MEDS ORDERED: DULO-24 PO (15:06)
[2017-07-03] MEDS ORDERED: DIGO1TAB90 PEG (15:06)
[2017-07-03] MEDS ORDERED: SALI0.6510 NAE (15:06)
[2017-07-03] MEDS ORDERED: RANI150C4 PO (15:06)
[2017-07-03] MEDS ORDERED: NVLG SC ×2 (15:06)
[2017-07-03] MEDS ORDERED: MOML PO (15:06)
[2017-07-03] MEDS ORDERED: HYDR-3983 PO (15:06)
[2017-07-03] MEDS ORDERED: LORA-741 PO (15:06)
[2017-07-03] MEDS ORDERED: FERR1TAB13 PO (15:06)
[2017-07-03] MEDS ORDERED: MULT-190 PO (15:06)
[2017-07-03] MEDS ORDERED: LACT1TAB4 PO (15:06)
[2017-07-18] MEDS ORDERED: HMLI7525 SC (07:37)
[2017-07-18] MEDS ORDERED: MULTTAB63 PO (07:37)
[2017-07-18] MEDS ORDERED: TRAM-10 PO (07:37)
== END 2016-12-24 15:20 | DRG 475 ==
LOC: ENRESERVDT → ENRESERV → ENRESERVTM → C.EDB 13:54 → UNDOADMIN 18:15 → C.MSW 18:15 → C.2T 12-17 18:43 → C.MSN 12-19 16:17 → C.2T 12-21 10:53 → C.MSW 12-23 12:34
PROVIDERS: ADMIT Internal Medicine; ATTEND Internal Medicine
PROC: 0Y6J0Z3 Detachment at Left Lower Leg, Low, Open Approach (ICD-10-PCS; principal; 2016-12-17 12:00)
DX: M86.9 Osteomyelitis, unspecified (principal); L03.116 Cellulitis of left lower limb; J96.10 Chronic respiratory failure, unspecified whether with hypoxia or hypercapnia; I50.30 Unspecified diastolic (congestive) heart failure; M14.672 Charcot's joint, left ankle and foot; E03.9 Hypothyroidism, unspecified; G47.33 Obstructive sleep apnea (adult) (pediatric); E11.22 Type 2 diabetes mellitus with diabetic chronic kidney disease; N18.3 Chronic kidney disease, stage 3 (moderate); D64.9 Anemia, unspecified; I25.10 Atherosclerotic heart disease of native coronary artery without angina pectoris; I10 Essential (primary) hypertension; E11.621 Type 2 diabetes mellitus with foot ulcer; J44.9 Chronic obstructive pulmonary disease, unspecified; K59.00 Constipation, unspecified; I48.91 Unspecified atrial fibrillation; I73.9 Peripheral vascular disease, unspecified; Z79.4 Long term (current) use of insulin; Z99.81 Dependence on supplemental oxygen; Z87.891 Personal history of nicotine dependence; Z90.49 Acquired absence of other specified parts of digestive tract; L97.519 Non-pressure chronic ulcer of other part of right foot with unspecified severity; L97.529 Non-pressure chronic ulcer of other part of left foot with unspecified severity; G62.9 Polyneuropathy, unspecified; B95.62 Methicillin resistant Staphylococcus aureus infection as the cause of diseases classified elsewhere; L84 Corns and callosities

== ENCOUNTER 2016-12-27 19:20 | Inpatient (IN) | payer BC, OTHER ==
[~2016-12-27] VITALS: Ht 157.5 cm; Wt 92.5 kg
[~2016-12-27 19:20] MED LIST changes: -ASCO500T16 PO; -ASCOCRY2; -COLE5GRA PO; -DIGO1TAB90 PEG; -DULO-24 PO; -FERR1TAB13 PO; -FRRS300 PO; -GABA-113 PO; -HMLI7525 SC; -HYDR-3983 PO; -IMD/2 PO; -INSDGI SC; -INSDGIPEN SC; -IPRASOL4 INH; -LACT1TAB4 PO; -LNX25 PO; -LORA-741 PO; -LSX40 PO; -LVQ500 PO; -MOML PO; -MULT-116 PO; -MULT-190 PO; -MULTTAB63 PO; -NRN600 PO; -NVLG SC; -RANI150C4 PO; -RIVA1.5T PO; -RIVA1TAB4 PO; -SALI0.6510 NAE; -SODIENE PR
[2016-12-27] MEDS ORDERED: SODIUM CHLORIDE 0.9% 1000ML 1,000 ML IV STA (19:43)
[2016-12-27] MEDS ORDERED: CEFEPIME IV 1,000 MG in DEXTROSE 5% 100ML 100 ML IV STA (19:43)
[2016-12-27] MEDS ORDERED: LEVAQUIN 500MG / 100ML D5W IV ONE (19:45)
[2016-12-27 20:15] LABS: HEMATOCRIT 30.1 % (37-47); MEAN CORPUSCULAR HEMOGLOBIN 28.4 pg (25-34); MEAN CORPUSCULAR HGB CONC 30.9 g/dl (32-36); MEAN PLATELET VOLUME 8.9 fL (7.4-10.4); PLATELET COUNT 205 K/uL (130-400); RED BLOOD COUNT 3.27 M/uL (4.2-5.4); WHITE BLOOD COUNT 11.26 K/uL (4.8-10.8)
[2016-12-27 20:23] LABS: INR 1.6 (0.9-1.1); PROTHROMBIN TIME (PATIENT) 17.8 SECONDS (9.0-12.0)
[2016-12-27 20:23] LABS: ISTAT CREATININE 1.8 mg/dl (0.6-1.3); ISTAT HEMOGLOBIN 8.8 g/dl (12.0-16.0); ISTAT IONIZED CALCIUM 1.26 mmol/l (1.12-1.32)
[2016-12-27 20:31] LABS: BUN/CREATININE RATIO 21.2 (10-20); CALCIUM 9.1 mg/dl (8.5-10.1); CREATININE 1.9 mg/dl (0.60-1.20); POTASSIUM 5.8 mmol/L (3.5-5.1)
[2016-12-27 20:40] LABS: BASO % 0.1 %; BASO ABS # 0.01 K/uL (0-0.2); COMPLETE YES; EOS % 0.8 %; IG% 0.8 %; LYMPH % 6.5 %; LYMPH ABS # 0.73 K/uL (1.2-3.4); MONO % 10.7 %; NEUT % 81.1 %; POLYCHROMASIA 1+
[2016-12-27 20:42] LABS: CKMB/CK RATIO 0.6 (0-3.0)
[2016-12-27 20:53] LABS: MANUAL MICROSCOPIC REQUIRED? YES; URINE APPEARANCE CLOUDY (CLEAR); URINE BILIRUBIN NEG (NEG); URINE COLOR YELLOW; URINE NITRITE NEG (NEG); URINE PH 5.5 (4.5-7.5); URINE SPECIFIC GRAVITY >= 1.030 (1.000-1.030); UROBILINOGEN NEG (NEG)
--- NOTE | 2016-12-27 20:55 | DIAGNOSTIC IMAGING REPORT ---
CHEST ONE VIEW PORTABLE CLINICAL HISTORY: fever dyspnea COMPARISON STUDY: 12/16/2016 FINDINGS: Cardiomegaly. Parenchymal infiltrate right and to lesser extent left base. Underlying components of congestive failure. IMPRESSION: Congestive heart failure. Bibasilar parenchymal infiltrates. Cardiac megaly. Electronically signed by: Castillo Thompson M.D. 12/27/2016 8:53 PM Dictated Date/Time: 12/27/2016 8:52 PM
[2016-12-27 20:56] LABS: REVIEW REQ? NO
[2016-12-27 21:05] LABS: URINE RBC >30 /hpf (0-4); URINE WBC >30 /hpf (0-5)
[2016-12-27 21:06] LABS: URINE BACTERIA 2+ (NEG); URINE HYALINE CAST >30 /lpf (0-5); ZZUR CULT IF INDIC CLEAN CATCH YES
[2016-12-27] MEDS ORDERED: VANCOMYCIN INJ 1,000 MG in SODIUM CHLORIDE 0.9% 250ML 250 ML IV STA (21:43)
[2016-12-27] MEDS ORDERED: DILTIAZEM HCL 5 MG/ML 5 ML VIAL IV PRN (21:45)
[2016-12-27] MEDS ORDERED: ENOXAPARIN 1 MG/KG SQ SCH (21:45)
[2016-12-27] MEDS ORDERED: GLUCOSE 40% GEL 15 GM TUBE PO PRN ×2 (21:45→23:30)
[2016-12-27] MEDS ORDERED: ONDANSETRON INJ 2 MG/ML 2 ML VIAL IV PRN (21:45)
[2016-12-27] MEDS ORDERED: GLUCOSE 10 TABS/TUBE PO PRN ×2 (21:45→23:30)
[2016-12-27] MEDS ORDERED: LEVOFLOXACIN / D5W 500 MG in PREMIXED IN D5W 100 ML IV SCH (21:45)
[2016-12-27] MEDS ORDERED: GLUCAGON FOR INJ 1 MG VIAL SQ PRN ×2 (21:45→23:30)
[2016-12-27] MEDS ORDERED: DEXTROSE 50% 50 ML SYR IV PRN ×2 (21:45→23:30)
[2016-12-27] MEDS ORDERED: PIPERACILL/TAZOBAC IV 3.375 GM in DEXTROSE 5% 100ML 100 ML IV SCH (22:00)
[2016-12-27 22:45] VITALS: BP 134/65; PULSE 80; TEMP 37; O2SAT 95; BMI 39.6
[2016-12-27] MEDS ORDERED: IPRATROPIUM BROMIDE NEB SOLN 0.02% 2.5 ML VIAL INH PRN (22:45)
[2016-12-27] MEDS ORDERED: LEVALBUTEROL 1.25MG/0.5ML NEB INH PRN (22:45)
--- NOTE | 2016-12-27 22:50 | History and Physical ---
History & Physical Date & Time of Service: Dec 27, 2016 at 22:49 Chief Complaint: Nstemi, Initial Episode Of Care, Pneumonia... Primary Care Physician: Kelsey Bennett History of Present Illness Source: clinic records, hospital records The patient is a 71-year-old female resident of [place], presently being treated for pneumonia with ceftriaxone, who brought to the emergency department reported abnormal laboratories and possible sepsis. The patient is nonverbal, and the history of present illness is severely limited. Past Medical/Surgical History Medical Problems: (1) Ambulatory dysfunction Status: Chronic (2) CHF (congestive heart failure) Status: Chronic (3) Cholecystectomy Status: Resolved (4) Chronic congestive heart failure Status: Chronic (5) Chronic obstructive lung disease Status: Chronic (6) COPD exacerbation Status: Resolved (7) Diabetes mellitus Status: Chronic (8) History of anxiety Status: Chronic (9) History of hypokalemia Status: Chronic (10) Hypothyroidism Status: Chronic (11) Obstructive sleep apnea Status: Chronic (12) PNA (pneumonia) Status: Resolved Family History Heart disease Social History Smoking Status: Unknown if Ever Smoked Drug Use: none Marital Status: Housing status: lives alone, skilled nursing Occupational Status: disabled Immunizations History of Influenza Vaccine: Unknown Influenza Vaccine Date: Jun 23, 2013 History of Tetanus Vaccine?: Unknown History of Pneumococcal: Unknown Pneumococcal Date: Jun 23, 2011 History of Hepatitis B Vaccine: Unknown Multi-Drug Resistant Organisms History of MDRO: No Type of MDRO: MRSA Allergies Coded Allergies: Duloxetine (Verified Adverse Reaction, Mild, DIZZINESS, 12/27/16) Indigotindisulfonate (Verified Adverse Reaction, Unknown, "spaced out", ) Home Medications Scheduled Digoxin (Digoxin), 0.125 MCG PO QAM Diltiazem Hcl Extended Release (Diltiazem Hcl), 240 MG PO QAM Duloxetine HCl (Duloxetine HCl), 20 MG PO QAM Emollient (Eucerin), 1 APPLN TOP BID Ferrous Gluconate (Ferrous Gluconate), 324 MG PO DAILY Fluticasone Prop/Salmeterol (Advair Diskus 250/50 60 Dose), 1 PUFF INH BID Furosemide (Lasix), 1 TAB PO DAILY Gabapentin (Gabapentin), 300 MG PO TID Insulin Aspart (Novolog Flexpen), 0 UNITS SC ACHS Lactobacillus Acidophilus (Floranex), 2 TAB PO TIDM Levothyroxine Sodium (Levothyroxine Sodium), 50 MCG PO DAILY Levothyroxine Sodium (Synthroid), 200 MCG PO DAILY Magnesium Oxide (Mag-Ox), 400 MG PO BID Morphine Sulfate (Morphine Sulfate ER), 30 MG PO Q12H Nitroglycerin (Nitrostat), 0.4 MG UT PRN Omeprazole (Prilosec), 20 MG PO DAILY Oxygen (Oxygen), 3 LITERS NA CONTINOUS Potassium Chloride (Klor-Con M20), 20 MEQ PO DAILY Rivaroxaban (Xarelto), 2 TAB PO DAILY Spironolactone (Spironolactone), 25 MG PO QAM Tiotropium [place] (Spiriva Handihaler), 1 CAP INH DAILY Scheduled PRN Acetaminophen (Tylenol), 650 MG PO Q8H PRN for mild pain or fever Hydrocodone/Acetaminophen 5MG/325MG ([place] 5MG/325MG), 1 TAB PO Q6H PRN for mod Pain Lorazepam (Lorazepam), 0.5 MG PO BID PRN for Anxiety Polyethylene Glycol 3350 (Miralax), 17 GM PO DAILY PRN for Constipation Tramadol (Ultram), 50 MG PO Q8H PRN for Pain Review of Systems Review of systems is severely limited due to her mental state. Physical Exam Vital Signs Date Time Temp Pulse Resp B/P Pulse Ox O2 Delivery O2 Flow Rate FiO2 12/27/16 22:24 148/55 12/27/16 22:23 78 20 94 Nasal Cannula 3.0 12/27/16 21:03 93 Nasal Cannula 3.0 12/27/16 20:45 79 24 147/56 94 Nasal Cannula 3.0 12/27/16 19:53 37.5 74 26 147/56 94 Nasal Cannula 2.0 12/27/16 19:46 81 The patient is up tended, nonresponsive, lying in bed and in no acute distress. HEENT--PERRL, EOMI, mucous membranes and oropharynx very dry. Neck--supple, no JVD or bruits, thyroid normal, trachea midline, no adenopathy. Heart--irregularly irregular, no murmurs, rubs or gallops. Lungs--coarse breath sounds with wheezes bilaterally, no respiratory distress, no accessory muscle use. Abdomen--normal bowel sounds and soft, nondistended, no hernias or masses, no organomegaly. Extremities--no cyanosis, clubbing. There is bilaterally 1+ pretibial pitting Edema. There are good distal pulses b/l. Dermatologic--normal skin turgor, normal color, warm and dry, no abnormal lymph nodes, no rash. Neurologic--cranial nerves II through XII grossly intact, Rheumatologic--deferred due to mental state Psychiatric--obtunded. Diagnostics Laboratory Results Results Past 24 Hours Test 12/27/16 19:58 12/27/16 20:06 12/27/16 20:10 12/27/16 20:30 Range/Units White Blood Count 11.26 4.8-10.8 K/uL Red Blood Count 3.27 4.2-5.4 M/uL Hemoglobin 9.3 12.0-16.0 g/dL Hematocrit 30.1 37-47 % Mean Corpuscular Volume 92.0 80-100 fL Mean Corpuscular Hemoglobin 28.4 25-34 pg Mean Corpuscular Hemoglobin Concent 30.9 32-36 g/dl Platelet Count 205 130-400 K/uL Mean Platelet Volume 8.9 7.4-10.4 fL Neutrophils (%) (Auto) 81.1 % Lymphocytes (%) (Auto) 6.5 % Monocytes (%) (Auto) 10.7 % Eosinophils (%) (Auto) 0.8 % Basophils (%) (Auto) 0.1 % Neutrophils # (Auto) 9.14 1.4-6.5 K/uL Lymphocytes # (Auto) 0.73 1.2-3.4 K/uL Monocytes # (Auto) 1.20 0.11-0.59 K/uL Eosinophils # (Auto) 0.09 0-0.5 K/uL Basophils # (Auto) 0.01 0-0.2 K/uL RDW Standard Deviation 64.3 36.4-46.3 fL RDW Coefficient of Variation 19.3 11.5-14.5 % Immature Granulocyte % (Auto) 0.8 % Immature Granulocyte # (Auto) 0.09 0.00-0.02 K/uL Polychromasia 1+ Prothrombin Time 17.8 9.0-12.0 SECONDS Prothromb Time International Ratio 1.6 0.9-1.1 Sodium Level 143 136-145 mmol/L Potassium Level 5.8 3.5-5.1 mmol/L Chloride Level 106 98-107 mmol/L Carbon Dioxide Level 32 21-32 mmol/L Anion Gap 5.0 15.0 16-25 mmol/L Blood Urea Nitrogen 40 7-18 mg/dl Creatinine 1.90 0.60-1.20 mg/dl Est Creatinine Clear Calc Drug Dose 28.3 ml/min Estimated GFR () 30.0 Estimated GFR (Non- 25.9 BUN/Creatinine Ratio 21.2 10-20 Random Glucose 258 70-99 mg/dl Calcium Level 9.1 8.5-10.1 mg/dl Magnesium Level 3.0 1.8-2.4 mg/dl Total Bilirubin 0.7 0.2-1 mg/dl Direct Bilirubin 0.4 0-0.2 mg/dl Aspartate Amino Transf (AST/SGOT) 11 15-37 U/L Alanine Aminotransferase (ALT/SGPT) 10 12-78 U/L Alkaline Phosphatase 100 45-117 U/L Total Creatine Kinase 103 26-192 U/L Creatine Kinase MB 0.6 0.5-3.6 ng/ml Creatine Kinase MB Ratio 0.6 0-3.0 Troponin I 0.383 0-0.045 ng/ml Total Protein 6.6 6.4-8.2 gm/dl Albumin 2.4 3.4-5.0 gm/dl Bedside Lactic Acid Venous 1.29 0.90-1.70 mmol/L Bedside Hemoglobin 8.8 12.0-16.0 g/dl Bedside Hematocrit 26 37-47 % Bedside Sodium 140 135-144 mEq/L Bedside Potassium 5.9 3.3-5.0 mEq/L Bedside Chloride 101 101-112 mEq/L Bedside Total CO2 31 24-31 mEq/l Bedside Blood Urea Nitrogen 42 7-18 mg/dl Bedside Creatinine 1.8 0.6-1.3 mg/dl Bedside Glucose (other) 263 70-99 mg/dl Bedside Ionized Calcium ([place]dal[place]) 1.26 1.12-1.32 mmol/l Urine Color YELLOW Urine Appearance CLOUDY CLEAR Urine pH 5.5 4.5-7.5 Urine Specific [place] >= 1.030 1.000-1.030 Urine Protein 2+ NEG Urine Glucose (UA) NEG NEG Urine Ketones NEG NEG Urine Occult Blood 2+ NEG Urine Nitrite NEG NEG Urine Bilirubin NEG NEG Urine Urobilinogen NEG NEG Urine Leukocyte Esterase MODERATE NEG Urine RBC >30 0-4 /hpf Urine WBC >30 0-5 /hpf Urine Epithelial Cells >30 0-5 /lpf Urine Bacteria 2+ NEG Urine Hyaline Casts >30 0-5 /lpf Urine Yeast PRESENT NONE PRSENT Microbiology Results 12/27/16 Blood Culture, Received Pending 12/27/16 Blood Culture, Received Pending 12/27/16 Urine Culture, Received Pending Diagnostic Radiology Patient Name: KENNETH HURT Unit Number: [id number] Dictated: 12/27/162051 Transcribed: 12/27/162051 MS Printed Date/Time: [~ rep prt dt]/[~ rep prt tm] [~ rep ct labl] - [~ rep ct ivnm] [facility] [place] [address] Dictated: 12/27/162051 Transcribed: 12/27/162051 MS Printed Date/Time: [~ rep prt dt]/[~ rep prt tm] [~ rep ct labl] - [~ rep ct ivnm] CHEST ONE VIEW PORTABLE CLINICAL HISTORY: fever dyspnea COMPARISON STUDY: 12/16/2016 FINDINGS: Cardiomegaly. Parenchymal infiltrate right and to lesser extent left base. Underlying components of congestive failure. IMPRESSION: Congestive heart failure. Bibasilar parenchymal infiltrates. Cardiac megaly. Electronically signed by: Castillo Thompson M.D. 12/27/2016 8:53 PM Dictated Date/Time: 12/27/2016 8:52 PM The status of this report is Signed. Draft = Not yet reviewed or approved by Radiologist. Signed = Reviewed and approved by Radiologist. <AttendingPhy></AttendingPhy> <FamilyPhy>Lakeside, Elbert</FamilyPhy> <PrimaryPhy> Lakeside, Elbert</PrimaryPhy> <UnitNumber>[id number]</UnitNumber> <VisitNumber> [id number]</VisitNumber> <PatientName>KENNETH HURT</PatientName> < DateOfBirth>1945</DateOfBirth> <Location>[facility]</Location> <ServiceDate></ServiceDate> <MNE>ESINDI</MNE> <OrderingPhy>Jensen Wong DO</ OrderingPhy> <OrderingPhyMNE>f rep ord dr rahman</OrderingPhyMNE> <DictatingPhyMNE> f rep dict dr rahman</DictatingPhyMNE> <CCListMNE>f rep ct aishae</CCListMNE> < AdmittingPhyMNE>f pt admit dr rahman</AdmittingPhyMNE> <AttendingPhyMNE>f pt attend dr rahman</AttendingPhyMNE> <ConsultingPhyMNE>f pt consult dr rahman</ConsultingPhyMNE> <FamilyPhyMNE>f pt fam dr rahman</FamilyPhyMNE> <OtherPhyMNE>f pt other dr rahman</OtherPhyMNE> < PrimaryPhyMNE>f pt prim care dr rahman</PrimaryPhyMNE> <ReferringPhyMNE>f pt referring dr rahman</ReferringPhyMNE> Impression Assessment and Plan Atrial fibrillation/CHF/history of OR/elevated troponin of 0.383--the patient will be admitted to the telemetry unit for serial cardiac enzymes, cardiac rhythm monitoring and a 2-D echocardiogram with Dopplers. We'll change digoxin to 0.125 mg IV every morning. We will hold furosemide, mag oxide, potassium chloride, Xarelto, spironolactone and nitroglycerin sublingual. We'll place on Lovenox 1 mg kilogram subcutaneous every 12 hours, and diltiazem be changed from 240 mg by mouth every morning to 10 mg IV every 4 hours when necessary systolic blood pressure greater than 150. Pneumonia--place on vancomycin IV, Zosyn IV, levofloxacin IV, Xopenex with Atrovent nebulizers every 6 hours while awake and every 2 hours when necessary and Solu-Medrol 20 mg IV every 8 hours. We'll hold Spiriva and Advair discus. Hypothyroidism--change levothyroxine sodium from 250 g by mouth daily to 125 g IV daily. GERD--change omeprazole 20 mg by mouth daily to pantoprazole 40 mg IV daily. Diabetes mellitus--place on Accu-Cheks 4 times a day with NovoLog coverage scale. Chronic pain syndrome--hold morphine sulfate ER 30 mg by mouth every 12 hours. Peripheral neuropathy--hold gabapentin 300 mg by mouth 3 times a day. Status post left BKA--sutures in place, wound looks clean. Renal insufficiency/hyperkalemia--gently hydrate with normal saline and repeat laboratories in the a.m. CODE STATUS--DO NOT RESUSCITATE Level of Care Telemetry Advanced Directives Existing Advance Directive: Yes Existing Living Will: Yes Resuscitation Status DO NOT RESUSCITATE VTE Prophylaxis VTE Risk Assessment Done? Y/N: Yes Risk Level: High Given or contraindicated: SCD's Social Service Consult Lives in Longterm
[2016-12-27] MEDS ORDERED: VANCOMYCIN INJ 2,300 MG in SODIUM CHLORIDE 0.9% 500ML 500 ML IV SCH (23:00)
[2016-12-27] MEDS ORDERED: PIPERACILL/TAZOBAC CONSULT ACTIVE PRN (23:00)
[2016-12-27] MEDS: SODIUM CHLORIDE 0.9% 1000ML 1,000 ML IV SCH (23:08)
[2016-12-27] MEDS ORDERED: LEVOFLOXACIN CONSULT ACTIVE PRN (23:45)
[2016-12-28] VITALS (11 sets, daily range): BP systolic 113–135; BP diastolic 52–66; PULSE 66–89; TEMP 36.7–38.1; O2SAT 94–99
[2016-12-28] MEDS ORDERED: PIPERACILL/TAZOBAC IV 4.5 GM in DEXTROSE 5% 100ML IV ONE ×2
[2016-12-28] MEDS: IPRATROPIUM BROMIDE NEB SOLN 0.02% 2.5 ML VIAL INH SCH ×3 (02:12→14:23)
[2016-12-28] MEDS: LEVALBUTEROL 1.25MG/0.5ML NEB INH SCH ×3 (02:12→14:23)
--- NOTE | 2016-12-28 02:38 | EMERGENCY ROOM VISIT NOTE ---
History Report prepared by Kisha: Myron Melvin Under the Supervision of: Dr. Jensen Wong D.O. First contact with patient: 19:32 Chief Complaint: ABNORMAL LABS Stated Complaint: ABNORMAL LABS/POSSIBLE SEPSIS History of Present Illness The patient is a 71 year old female who presents to the Emergency Room with complaints of abnormal labs occurring today. Per the nurse, the patient is from [facility] and is nonverbal. She is being treated for pneumonia, and received a dose of Rocephin earlier today. She had a DNR done on 12/24/16. History is limited secondary to mental state. Source of History: nursing staff History Limited By: AMS Onset: today Position: other (global) Quality: other (abnormal labs) Timing: other (episode) Review of Systems See HPI for pertinent positives & negatives. A total of 10 systems reviewed and were otherwise negative. Past Medical & Surgical Medical Problems: (1) Afib (2) AINSLEY (acute kidney injury) (3) Ambulatory dysfunction (4) Ambulatory dysfunction (5) Anemia (6) CHF (congestive heart failure) (7) Cholecystectomy (8) Chronic congestive heart failure (9) Chronic obstructive lung disease (10) CKD (chronic kidney disease) stage 3, GFR 30-59 ml/min (11) Complete below knee amputation of left lower extremity (12) COPD exacerbation (13) Diabetes mellitus (14) History of anxiety (15) History of hypokalemia (16) Hypokalemia (17) Hypothyroidism (18) NSTEMI, initial episode of care (19) Obstructive sleep apnea (20) Open wound (21) Osteomyelitis of left foot (22) PNA (pneumonia) (23) Pneumonia of both lower lobes (24) Septicemia due to group B Streptococcus (25) Shortness of breath (26) Wound infection Family History Heart disease Social History Smoking Status: Former Smoker Alcohol Use: none Drug Use: none Marital Status: Housing Status: lives with family, care home Occupation Status: disabled Current/Historical Medications Scheduled Digoxin (Digoxin), 0.125 MCG PO QAM Diltiazem Hcl Extended Release (Diltiazem Hcl), 240 MG PO QAM Duloxetine HCl (Duloxetine HCl), 20 MG PO QAM Emollient (Eucerin), 1 APPLN TOP BID Ferrous Gluconate (Ferrous Gluconate), 324 MG PO DAILY Fluticasone Prop/Salmeterol (Advair Diskus 250/50 60 Dose), 1 PUFF INH BID Furosemide (Lasix), 1 TAB PO DAILY Gabapentin (Gabapentin), 300 MG PO TID Insulin Aspart (Novolog Flexpen), 0 UNITS SC ACHS Lactobacillus Acidophilus (Floranex), 2 TAB PO TIDM Levothyroxine Sodium (Levothyroxine Sodium), 50 MCG PO DAILY Levothyroxine Sodium (Synthroid), 200 MCG PO DAILY Magnesium Oxide (Mag-Ox), 400 MG PO BID Morphine Sulfate (Morphine Sulfate ER), 30 MG PO Q12H Nitroglycerin (Nitrostat), 0.4 MG UT PRN Omeprazole (Prilosec), 20 MG PO DAILY Oxygen (Oxygen), 3 LITERS NA CONTINOUS Potassium Chloride (Klor-Con M20), 20 MEQ PO DAILY Rivaroxaban (Xarelto), 2 TAB PO DAILY Spironolactone (Spironolactone), 25 MG PO QAM Tiotropium [place] (Spiriva Handihaler), 1 CAP INH DAILY Scheduled PRN Acetaminophen (Tylenol), 650 MG PO Q8H PRN for mild pain or fever Hydrocodone/Acetaminophen 5MG/325MG ([place] 5MG/325MG), 1 TAB PO Q6H PRN for mod Pain Lorazepam (Lorazepam), 0.5 MG PO BID PRN for Anxiety Polyethylene Glycol 3350 (Miralax), 17 GM PO DAILY PRN for Constipation Tramadol (Ultram), 50 MG PO Q8H PRN for Pain Allergies Coded Allergies: Duloxetine (Verified Adverse Reaction, Mild, DIZZINESS, 12/27/16) Indigotindisulfonate (Verified Adverse Reaction, Unknown, "spaced out", ) Physical Exam Vital Signs Date Time Temp Pulse Resp B/P Pulse Ox O2 Delivery O2 Flow Rate FiO2 12/27/16 21:03 93 Nasal Cannula 3.0 12/27/16 20:45 79 24 147/56 94 Nasal Cannula 3.0 12/27/16 19:53 37.5 74 26 147/56 94 Nasal Cannula 2.0 12/27/16 19:46 81 Physical Exam GENERAL: Sitting up in bed, nasal cannula in place, mild gurgling. EYE EXAM: normal conjunctiva, PERRL and EOM's grossly intact OROPHARYNX: no exudate, no erythema, lips, buccal mucosa, and tongue normal and mucous membranes are dry NECK: Old incision over trachea. LUNGS: Rhonchi noted bilaterally. HEART: no murmurs, S1 normal and S2 normal ABDOMEN: Old bruising with palpable hernia. BACK: Back is symmetrical on inspection and there is no deformity, no midline tenderness, no CVA tenderness. SKIN: no rashes and no bruising UPPER EXTREMITIES: upper extremities are grossly normal. LOWER EXTREMITIES: Left lower extremity below knee amputation. Sutures in place. No draining. No surrounding erythema. NEURO EXAM: Alert. Able to mumble and squeeze upper extremities on command. Eyes are open. Screams to pain on palpation of left lower leg. Medical Decision & Procedures ER Provider Diagnostic Interpretation: Radiology results as stated below per my review and the radiologist's interpretation: CHEST ONE VIEW PORTABLE FINDINGS: Cardiomegaly. Parenchymal infiltrate right and to lesser extent left base. Underlying components of congestive failure. IMPRESSION: Congestive heart failure. Bibasilar parenchymal infiltrates. Cardiac megaly. Electronically signed by: Castillo Thompson M.D. 12/27/2016 8:53 PM Dictated Date/Time: 12/27/2016 8:52 PM Laboratory Results 12/27/16 19:58 Red Blood Count 3.27, Mean Corpuscular Volume 92.0, Mean Corpuscular Hemoglobin 28.4, Mean Corpuscular Hemoglobin Concent 30.9, Mean Platelet Volume 8.9, Neutrophils (%) (Auto) 81.1, Lymphocytes (%) (Auto) 6.5, Monocytes (%) (Auto) 10.7, Eosinophils (%) (Auto) 0.8, Basophils (%) (Auto) 0.1, Neutrophils # (Auto ) 9.14, Lymphocytes # (Auto) 0.73, Monocytes # (Auto) 1.20, Eosinophils # (Auto ) 0.09, Basophils # (Auto) 0.01 12/27/16 19:58 Test 12/27/16 19:58 12/27/16 20:06 12/27/16 20:10 12/27/16 20:30 White Blood Count 11.26 K/uL (4.8-10.8) Red Blood Count 3.27 M/uL (4.2-5.4) Hemoglobin 9.3 g/dL (12.0-16.0) Hematocrit 30.1 % (37-47) Mean Corpuscular Volume 92.0 fL (80-100) Mean Corpuscular Hemoglobin 28.4 pg (25-34) Mean Corpuscular Hemoglobin Concent 30.9 g/dl (32-36) Platelet Count 205 K/uL (130-400) Mean Platelet Volume 8.9 fL (7.4-10.4) Neutrophils (%) (Auto) 81.1 % Lymphocytes (%) (Auto) 6.5 % Monocytes (%) (Auto) 10.7 % Eosinophils (%) (Auto) 0.8 % Basophils (%) (Auto) 0.1 % Neutrophils # (Auto) 9.14 K/uL (1.4-6.5) Lymphocytes # (Auto) 0.73 K/uL (1.2-3.4) Monocytes # (Auto) 1.20 K/uL (0.11-0.59) Eosinophils # (Auto) 0.09 K/uL (0-0.5) Basophils # (Auto) 0.01 K/uL (0-0.2) RDW Standard Deviation 64.3 fL (36.4-46.3) RDW Coefficient of Variation 19.3 % (11.5-14.5) Immature Granulocyte % (Auto) 0.8 % Immature Granulocyte # (Auto) 0.09 K/uL (0.00-0.02) Polychromasia 1+ Prothrombin Time 17.8 SECONDS (9.0-12.0) Prothromb Time International Ratio 1.6 (0.9-1.1) Est Creatinine Clear Calc Drug Dose 28.3 ml/min Estimated GFR () 30.0 Estimated GFR (Non- 25.9 BUN/Creatinine Ratio 21.2 (10-20) Calcium Level 9.1 mg/dl (8.5-10.1) Magnesium Level 3.0 mg/dl (1.8-2.4) Total Bilirubin 0.7 mg/dl (0.2-1) Direct Bilirubin 0.4 mg/dl (0-0.2) Aspartate Amino Transf (AST/SGOT) 11 U/L (15-37) Alanine Aminotransferase (ALT/SGPT) 10 U/L (12-78) Alkaline Phosphatase 100 U/L (45-117) Total Creatine Kinase 103 U/L (26-192) Creatine Kinase MB 0.6 ng/ml (0.5-3.6) Creatine Kinase MB Ratio 0.6 (0-3.0) Troponin I 0.383 ng/ml (0-0.045) Total Protein 6.6 gm/dl (6.4-8.2) Albumin 2.4 gm/dl (3.4-5.0) Bedside Lactic Acid Venous 1.29 mmol/L (0.90-1.70) Bedside Hemoglobin 8.8 g/dl (12.0-16.0) Bedside Hematocrit 26 % (37-47) Bedside Sodium 140 mEq/L (135-144) Bedside Potassium 5.9 mEq/L (3.3-5.0) Bedside Chloride 101 mEq/L (101-112) Bedside Total CO2 31 mEq/l (24-31) Anion Gap 15.0 mmol/L (16-25) Bedside Blood Urea Nitrogen 42 mg/dl (7-18) Bedside Creatinine 1.8 mg/dl (0.6-1.3) Bedside Glucose (other) 263 mg/dl (70-99) Bedside Ionized Calcium ([place]) 1.26 mmol/l (1.12-1.32) Urine Color YELLOW Urine Appearance CLOUDY (CLEAR) Urine pH 5.5 (4.5-7.5) Urine Specific [place] >= 1.030 (1.000-1.030) Urine Protein 2+ (NEG) Urine Glucose (UA) NEG (NEG) Urine Ketones NEG (NEG) Urine Occult Blood 2+ (NEG) Urine Nitrite NEG (NEG) Urine Bilirubin NEG (NEG) Urine Urobilinogen NEG (NEG) Urine Leukocyte Esterase MODERATE (NEG) Urine RBC >30 /hpf (0-4) Urine WBC >30 /hpf (0-5) Urine Epithelial Cells >30 /lpf (0-5) Urine Bacteria 2+ (NEG) Urine Hyaline Casts >30 /lpf (0-5) Urine Yeast PRESENT (NONE PRSENT) Laboratory results per my review. Medications Administered Medications (Trade) Dose Ordered Sig/Hans Route Start Time Stop Time Status Last Admin Dose Admin Cefepime HCl/ Dextrose (Maxipime IV/D5 100ml) 111.3 ml @ 200 mls/hr NOW STAT IV 12/27/16 19:43 12/27/16 20:56 DC 12/27/16 20:43 200 MLS/HR Levofloxacin 500 mg 500 mg NOW ONCE IV 12/27/16 19:45 12/27/16 20:56 DC 12/27/16 21:20 500 MG Sodium Chloride (Nss 1000ml) 1,000 ml @ 999 mls/hr Q1H1M STAT IV 12/27/16 19:43 12/27/16 20:56 DC 12/27/16 20:42 999 MLS/HR ECG Indication: other (abnormal labs) Rate (beats per minute): 88 Rhythm: atrial fibrillation Findings: Q waves (Inferior), RBBB, ST depression (Lateral) ED Course ED COURSE: Vital signs were reviewed and showed hypoxic. The patients medical record was reviewed The above diagnostic studies were performed and reviewed. ED treatments and interventions as stated above. 1931: The patient was evaluated in room A10. A complete history and physical examination was performed. 1942: Ordered NSS 1,000 ml @ 999 mls/hr IV, and Cefepime HCl 1,000 mg/Dextrose 111.3 ml @ 200 mls/hr IV. 1944: Ordered Levofloxacin 500 mg IV. 2119: I reviewed the patient's case with Dr. Bhakta. He will evaluate the patient for further management. 2124: Upon reevaluation, the patient is doing well.I discussed my findings with the patient and she understands and agrees with the treatment plan. Based on the patients age, coexisting illnesses, exam and lab findings the decision to treat as an inpatient was made. The patient remained stable while under my care. The patient will be evaluated for further management. Medical Decision Differential diagnosis includes etiologies such as sepsis, UTI, pneumonia, metabolic, electrolyte abnormalities, cardiac sources, intracerebral event, toxicologic, neurologic, as well as others were entertained. Patient is a 71-year-old female who presents the ER for fever associated with altered mental status and a pneumonia. She is currently on IM Rocephin. She is a DO NOT RESUSCITATE. On my exam she is not following commands or answering questions appropriately. Labs show mild leukocytosis. Slight elevation in potassium at 5.9. Creatinine is elevated at 1.9. Troponin was elevated at 0.3. UA shows a clear UTI. She was given cefepime and Levaquin. Patient was given fluids and admitted to internal medicine with sepsis secondary to pneumonia and UTI. Consults Time Called: [phone] Consulting Physician: [place], [facility] [place] Call: [phone] I reviewed the patient's case with Dr. Bhakta. He will evaluate the patient for further management. Impression Primary Impression: Sepsis Additional Impressions: PNA (pneumonia) UTI (urinary tract infection) Hyperkalemia Anemia Scribe Attestation The scribe's documentation has been prepared under my direction and personally reviewed by me in its entirety. I confirm that the note above accurately reflects all work, treatment, procedures, and medical decision making performed by me. Departure Information Dispostion Being Evaluated By Hospitalist Referrals LibertyMadhav (PCP) Patient Instructions My [facility] Problem Qualifiers Primary Impression: Sepsis Sepsis type: sepsis due to unspecified organism Qualified Codes: A41.9 - Sepsis, unspecified organism Additional Impressions: PNA (pneumonia) Pneumonia type: due to unspecified organism Laterality: unspecified laterality Lung location: unspecified part of lung Qualified Codes: J18.9 - Pneumonia, unspecified organism UTI (urinary tract infection) Urinary tract infection type: site unspecified Hematuria presence: with hematuria Qualified Codes: N39.0 - Urinary tract infection, site not specified ; R31.9 - Hematuria, unspecified
[2016-12-28] MEDS ORDERED: LEVALBUTEROL/IPRATROPIUM NEB INH SCH (03:00)
[2016-12-28 05:54] LABS: HEMATOCRIT 27.4 % (37-47); MEAN CELL VOLUME 91.6 fL (80-100); MEAN CORPUSCULAR HEMOGLOBIN 28.4 pg (25-34); MEAN PLATELET VOLUME 8.4 fL (7.4-10.4); PLATELET COUNT 177 K/uL (130-400); RED BLOOD COUNT 2.99 M/uL (4.2-5.4); WHITE BLOOD COUNT 9.75 K/uL (4.8-10.8)
[2016-12-28] MEDS ORDERED: INSULIN ASPART 100 UNITS/ML 3 ML PEN SC SCH ×3 (06:00→07:00)
[2016-12-28] MEDS: PIPERACILL/TAZOBAC IV 4.5 GM in DEXTROSE 5% 100ML IV SCH ×3 (06:02→22:49)
[2016-12-28 06:11] LABS: INR 1.5 (0.9-1.1); PARTIAL THROMBOPLASTIN RATIO 1.5; PROTHROMBIN TIME (PATIENT) 16.6 SECONDS (9.0-12.0)
[2016-12-28 06:14] LABS: BASO % 0.1 %; BASO ABS # 0.01 K/uL (0-0.2); COMPLETE YES; EOS % 1.4 %; IG% 0.5 %; LYMPH ABS # 0.49 K/uL (1.2-3.4); MONO % 9.6 %; NEUT % 83.4 %; POLYCHROMASIA 1+
[2016-12-28 06:35] LABS: CALCIUM 8.4 mg/dl (8.5-10.1); CREATININE 1.6 mg/dl (0.60-1.20); MAGNESIUM 2.9 mg/dl (1.8-2.4); POTASSIUM 5.3 mmol/L (3.5-5.1)
[2016-12-28] MEDS ORDERED: PNEUMOCOCCAL ADMINISTRATION CHARGE ONE (08:00)
[2016-12-28] MEDS ORDERED: PNEUMOCOCCAL POLYSACCHARIDES 25 MCG/0.5 ML VIAL/SYR IM. ONE (08:00)
[2016-12-28] MEDS: SODIUM CHLORIDE 0.9% 1000ML 1,000 ML IV SCH ×2 (09:27→18:55)
[2016-12-28] MEDS: ENOXAPARIN 100 MG/1ML SYR SQ SCH (09:28)
[2016-12-28] MEDS: LEVOTHYROXINE SODIUM IV SCH (09:28)
[2016-12-28] MEDS: MoRPHine SULFATE 4 MG/ML 1 ML CARP\\VIAL IV PRN ×2 (09:29→17:47)
[2016-12-28] MEDS ORDERED: PHARMACY GLYCEMIC MGMT CONSULT SCH (09:56)
[2016-12-28] MEDS ORDERED: INSULIN GLARGINE SOLOSTAR 100 UNITS/ML 3 ML PEN SC ONE (10:15)
[2016-12-28] MEDS: INSULIN ASPART 100 UNITS/ML 3 ML PEN SC SCH ×3 (11:00→20:25)
[2016-12-28] MEDS: LORAZEPAM 2 MG/ML 1 ML VIAL IV PRN (11:14)
[2016-12-28] MEDS ORDERED: NURSING VERBAL MED ORDER ONE ×2 (11:30→19:15)
[2016-12-28] MEDS ORDERED: SODIUM CHLORIDE 0.65% NA SOLN 45 ML (OCEAN) PRN (11:45)
[2016-12-28] MEDS: PANTOprazole INJ 40 MG in SYRINGE 0 ML IV SCH (11:56)
[2016-12-28] MEDS: NYSTATIN OINT 15 GM TUBE EXT SCH (11:56)
[2016-12-28] MEDS ORDERED: VANCOMYCIN CONSULT ACTIVE PRN (13:00)
--- NOTE | 2016-12-28 13:20 | Pharmacy Progress Note ---
Pharmacy Antibiotic Consult Date of Service: Dec 28, 2016. Pharmacy Dosing Scope Pharmacy is consulted to initiate IV Vancomycin dosing therapy, order appropriate labs and adjust drug dose/frequency. Subjective The patient is a 71 year old female admitted on Dec 27, 2016 at 21:55. Objective Height (Feet): 5 Height (Inches): 2.00 Weight (Kilograms): 89.500 Lab Results (24hrs): Laboratory Tests Test 12/27/16 19:58 12/28/16 05:44 BUN/Creatinine Ratio 21.2 26.0 Blood Urea Nitrogen 40 mg/dl 42 mg/dl Creatinine 1.90 mg/dl 1.60 mg/dl White Blood Count 11.26 K/uL 9.75 K/uL Red Blood Count 3.27 M/uL 2.99 M/uL Hemoglobin 9.3 g/dL 8.5 g/dL Hematocrit 30.1 % 27.4 % Mean Corpuscular Volume 92.0 fL 91.6 fL Mean Corpuscular Hemoglobin 28.4 pg 28.4 pg Mean Corpuscular Hemoglobin Concent 30.9 g/dl 31.0 g/dl Platelet Count 205 K/uL 177 K/uL Mean Platelet Volume 8.9 fL 8.4 fL Neutrophils (%) (Auto) 81.1 % 83.4 % Lymphocytes (%) (Auto) 6.5 % 5.0 % Monocytes (%) (Auto) 10.7 % 9.6 % Eosinophils (%) (Auto) 0.8 % 1.4 % Basophils (%) (Auto) 0.1 % 0.1 % Neutrophils # (Auto) 9.14 K/uL 8.12 K/uL Lymphocytes # (Auto) 0.73 K/uL 0.49 K/uL Monocytes # (Auto) 1.20 K/uL 0.94 K/uL Eosinophils # (Auto) 0.09 K/uL 0.14 K/uL Basophils # (Auto) 0.01 K/uL 0.01 K/uL Micro Results: Item Value Date Time Blood Culture Received 12/27/161957 Blood Pending Blood Culture Received 12/27/162008 Blood Pending Urine Culture Received 12/27/16 2030 Urine , Clean Catch Pending MRSA DNA Surveillance Screen Received 12/27/16 2307 Nasal Pending C.difficile Toxin B Gene (PCR) - Final Complete 12/28/16 0032 Stool No C. difficile toxin B gene detected Recent Pertinent Medications Item Value Date Time Vancomycin HCl 546 ml @ 200 mls/hr 12/27/16 2300 2300 mg/Sodium TODAY@2300/IV 12/27/16 2309 Chloride Vancomycin HCl 277 ml @ 125 mls/hr 12/28/16 2300 1350 mg/Sodium Q24H/IV Chloride Item Value Date Time Piperacillin Sod/ 120 ml @ 200 mls/hr 12/28/16 0000 Tazobactam Sod TODAY@0000 ONCE/IV 12/28/16 0038 4.5 gm/Dextrose Piperacillin Sod/ 120 ml @ 30 mls/hr 12/28/16 0600 Tazobactam Sod Q8H/IV 12/28/16 0602 4.5 gm/Dextrose Item Value Date Time Levofloxacin 250 50 ml @ 50 mls/hr 12/28/16 2100 mg/Prmx DAILY@2100/IV Levofloxacin 500 mg 12/27/16 1945 (Levaquin / D5W) NOW ONCE/IV 12/27/162119 Assessment & Plan Vancomycin * 71 yo F admitted for pneumonia & possible sepsis * Goal peak level: 30-40mcg/mL * Goal trough level: 15-20mcg/mL * Loading dose: Vancomycin 2300mg IV x 1 dose * est half-life ~ 21.8hr * Maintenance dose: Vancomycin 1350mg IV q24h * Trough level ordered for: 12/30/16 2300 dose Pharmacy will continue to follow and will adjust dose/frequency as necessary. Thank you
--- NOTE | 2016-12-28 13:55 | Pharmacy Progress Note ---
Glycemic Control Intl Consult Date of Service Dec 28, 2016. Scope Glycemic Pharmacist consulted by Dr Faustin on 12/28 for glycemic control and to write orders per [facility] inpatient glycemic control protocol Objective Weight (Kilograms): 89.500 Accuchecks BSG (last 24hrs): Test 12/27/16 19:58 12/27/16 23:17 12/28/16 00:43 12/28/16 05:44 Random Glucose 258 mg/dl (70-99) 256 mg/dl (70-99) Bedside Glucose 245 mg/dl (70-90) 265 mg/dl (70-90) Test 12/28/16 06:07 12/28/16 11:36 Bedside Glucose 241 mg/dl (70-90) 234 mg/dl (70-90) Laboratory Data (last 24hrs) Test 12/27/16 19:58 12/27/16 20:10 12/28/16 05:44 Anion Gap 5.0 mmol/L 15.0 mmol/L 4.0 mmol/L BUN/Creatinine Ratio 21.2 26.0 Blood Urea Nitrogen 40 mg/dl 42 mg/dl Creatinine 1.90 mg/dl 1.60 mg/dl Potassium Level 5.8 mmol/L 5.3 mmol/L Sodium Level 143 mmol/L 143 mmol/L White Blood Count 11.26 K/uL 9.75 K/uL Red Blood Count 3.27 M/uL 2.99 M/uL Hemoglobin 9.3 g/dL 8.5 g/dL Hematocrit 30.1 % 27.4 % Mean Corpuscular Volume 92.0 fL 91.6 fL Mean Corpuscular Hemoglobin 28.4 pg 28.4 pg Mean Corpuscular Hemoglobin Concent 30.9 g/dl 31.0 g/dl Platelet Count 205 K/uL 177 K/uL Mean Platelet Volume 8.9 fL 8.4 fL Neutrophils (%) (Auto) 81.1 % 83.4 % Lymphocytes (%) (Auto) 6.5 % 5.0 % Monocytes (%) (Auto) 10.7 % 9.6 % Eosinophils (%) (Auto) 0.8 % 1.4 % Basophils (%) (Auto) 0.1 % 0.1 % Neutrophils # (Auto) 9.14 K/uL 8.12 K/uL Lymphocytes # (Auto) 0.73 K/uL 0.49 K/uL Monocytes # (Auto) 1.20 K/uL 0.94 K/uL Eosinophils # (Auto) 0.09 K/uL 0.14 K/uL Basophils # (Auto) 0.01 K/uL 0.01 K/uL Recent Pertinent Medications Outpatient Anti-diabetic Regimen: (at [facility]) - note: BSGs were in the 200s and 300s there * Novolog per sliding scale * A1c = 5.3 % 09/20/16 The patient is currently receiving: * Basal insulin: None * Correctional Insulin: Novolog Correction per scale q6h Goal Range: Low 100 mg/dL - High 150 mg/dL Correction Factor: 30 mg/dL/unit * Prandial insulin: Per carb ratio of 1 unit per 10 grams CHO consumed Risk Factors for Insulin Resistance: * Infection: on Levaquin and Zosyn for pneumonia * Diet: type 2 diabetes diet has been ordered Assessment & Plan ASSESSMENT: 12/28/16 * Ms. Gloria is a 71 y/o female admitted for A.fib and pneumonia from [facility] * She is well known to the pharmacy glycemic service from previous admissions but had always been on 70/30 insulin - I'm not sure when this was d/c'd * I spoke with the nurse at [facility] to get an idea of the patient's BSGs prior to admission since she was just on the sliding scale there * The nurse reported that her BSGs were mostly in the 200s, with the mid-300s immediately prior to this admission * It would make sense for her to require some sort of basal insulin as an outpatient - will need to look into this further prior to making recommendations for discharge * For now, will base insulin regimen off of previous admissions in which she required ~80-100 units/day while eating * Will plan to start basal insulin in the form of Lantus and utilize BID dosing for ease of titration * She is already on Novolog but will tighten the parameters to provide additional coverage * ADA & AACE recommend a goal blood sugar range 140-180 mg/dl for the majority of critically ill & non-critically ill patients. However, more stringent targets may be selected in individual cases. PLAN FOR INPATIENT GLYCEMIC CONTROL: * Initiate Lantus 20 units BID * Change Novolog to ACHS + 0200 accucheck * Goal 100-150 * TIGHTEN CF to 25 * TIGHTEN CR to 9 DISCHARGE RECOMMENDATIONS: * Will most likely need basal on discharge * Plan will be determined once more info obtained as to why 70/30 was discontinued Thank you.
[2016-12-28 14:46] LABS: CKMB/CK RATIO 1.6 (0-3.0)
[2016-12-28] MEDS: DIGOXIN IV 125 MCG in SYRINGE 9.5 ML IV SCH (18:55)
[2016-12-28] MEDS ORDERED: LOPERAMIDE HCL 2 MG CAP PO STA (19:28)
[2016-12-28] MEDS ORDERED: HYDROmorphone INJ 1 MG/ML SYR IV STA (19:29)
[2016-12-28] MEDS: LEVOFLOXACIN 250MG / D5W IV SCH (20:21)
--- NOTE | 2016-12-28 20:57 | Progress Note ---
Subjective Date of Service: Dec 28, 2016. Subjective Pt evaluation today including: physical exam, chart review, lab review, review of studies, review of inpatient medication list Pain: ptient is moaning in pain PO Intake: poor oral intake Voiding: pratt catheter in place Pt is seen and examined by me, pt is moaning in pain, and some times shout in pain.Pt has a left blow knee amputation and sutures are placed. Pt wound is healed well. Pt is awake but orient to self unable to provide medical history.pt is not in acute cardiopulmonary distress. Problem List Medical Problems: (1) Atrial fibrillation Status: Acute (2) Bifascicular block Status: Acute (3) Cellulitis of both lower extremities Status: Acute (4) Cellulitis of foot, left Status: Acute (5) Cellulitis of left lower leg Status: Acute (6) CHF (congestive heart failure) Status: Acute (7) Constipation Status: Acute (8) Diabetic foot ulcer Status: Acute (9) Electrolyte abnormality Status: Acute (10) Hyperkalemia Status: Acute (11) Hypokalemia Status: Acute (12) Leukocytosis Status: Acute (13) PNA (pneumonia) Status: Acute (14) Sepsis Status: Acute (15) Sepsis Status: Acute (16) UTI (urinary tract infection) Status: Acute (17) UTI (urinary tract infection) Status: Acute Review of Systems unable to provide review of symptoms. Medications Medications (Trade) Dose Ordered Sig/Hans Route Start Time Stop Time Status Last Admin Dose Admin Sodium Chloride (Nss 1000ml) 1,000 ml @ 100 mls/hr Q10H IV 12/27/16 22:45 01/26/17 22:44 12/28/16 18:55 100 MLS/HR Morphine Sulfate 4 mg 4 mg Q2H PRN IV 12/27/16 21:45 01/10/17 21:44 12/28/16 17:47 4 MG Digoxin 125 mcg/ Syringe 10 ml @ 2 mls/min DAILY@16 IV 12/28/16 16:00 01/27/17 15:59 12/28/16 18:55 2 MLS/MIN Levothyroxine Sodium 125 mcg/ Syringe 6.25 ml @ 2 mls/min DAILY@09 IV 12/28/16 09:00 01/27/17 08:59 12/28/16 09:28 2 MLS/MIN Pantoprazole Sodium/Syringe (Protonix Inj/ Syringe) 10 ml @ 5 mls/min DAILY@11 IV 12/28/16 11:00 01/27/17 10:59 12/28/16 11:56 5 MLS/MIN Ipratropium [place] (Atrovent 0.02% 0.5MG/2.5ML Neb) 0.5 mg Q6R INH 12/28/16 03:00 01/27/17 02:59 12/28/16 14:23 0.5 MG Levalbuterol 1.25 mg 1.25 mg Q6R INH 12/28/16 03:00 01/27/17 02:59 12/28/16 14:23 1.25 MG Vancomycin HCl 2300 mg/Sodium Chloride 546 ml @ 200 mls/hr TODAY@2300 IV 12/27/16 23:00 12/28/16 01:44 DC 12/27/16 23:09 200 MLS/HR Piperacillin Sod/ Tazobactam Sod 4.5 gm/Dextrose 120 ml @ 200 mls/hr TODAY@0000 ONCE IV 12/28/16 00:00 12/28/16 00:35 DC 12/28/16 00:38 200 MLS/HR Piperacillin Sod/ Tazobactam Sod/ Dextrose (Zosyn Iv/D5 100ml) 120 ml @ 30 mls/hr Q8H IV 12/28/16 06:00 01/04/17 05:59 12/28/16 16:44 30 MLS/HR Enoxaparin Sodium (Lovenox Inj) 90 mg QAM SQ 12/28/16 09:00 01/27/17 08:59 12/28/16 09:28 90 MG Insulin Aspart (novoLOG ASPART) SLIDING SCALE If C... Q6 SC 12/28/16 06:00 12/28/16 10:11 DC 12/28/16 06:12 4 UNITS Lorazepam (Ativan Inj) 0.5 mg Q8 PRN IV 12/28/16 09:45 01/27/17 09:44 12/28/16 11:14 0.5 MG Nystatin (Mycostatin Oint) 1 appln BID EXT 12/28/16 21:00 01/27/17 20:59 12/28/16 11:56 1 APPLN Insulin Glargine (Lantus Solostar Pen) 20 unit ONE ONCE SC 12/28/16 10:15 12/28/16 10:16 DC 12/28/16 11:17 20 UNIT Insulin Aspart (novoLOG ASPART) SLIDING SCALE If C... ACHS SC 12/28/16 11:00 01/27/17 10:59 12/28/16 16:15 1 UNITS Sodium Chloride (Gore Nasal Spicer) 1 sprays PRN PRN NA 12/28/16 11:45 01/27/17 11:44 12/28/16 16:46 1 SPRAYS Loperamide HCl (Imodium Cap) 4 mg NOW STAT PO 12/28/16 19:28 12/28/16 19:29 DC 12/28/16 19:38 4 MG Hydromorphone HCl (Dilaudid Inj) 1 mg NOW STAT IV 12/28/16 19:29 12/28/16 19:30 DC 12/28/16 19:39 1 MG Objective Vital Signs Date Time Temp Pulse Resp B/P Pulse Ox O2 Delivery O2 Flow Rate FiO2 12/28/16 19:28 37.2 89 20 113/65 99 Venturi Mask 9.0 35 12/28/16 18:58 85 16 99 Nasal Cannula 2.0 12/28/16 18:55 88 12/28/16 16:00 Nasal Cannula 3.0 12/28/16 15:55 37.2 89 20 124/66 94 Nasal Cannula 3.0 12/28/16 14:23 79 16 98 Nasal Cannula 2.0 12/28/16 12:00 Nasal Cannula 3.0 12/28/16 10:48 37.0 85 18 115/65 97 Nasal Cannula 3.0 12/28/16 08:15 38.1 77 22 135/52 95 Nasal Cannula 2.0 12/28/16 08:00 98 Nasal Cannula 3.0 12/28/16 07:37 76 16 95 Nasal Cannula 2.0 12/28/16 04:00 Nasal Cannula 2.0 12/28/16 03:42 37.8 75 22 134/60 95 Nasal Cannula 2.0 12/28/16 02:12 84 16 94 Nasal Cannula 2.0 12/28/16 00:00 Nasal Cannula 3.0 12/27/16 22:45 37.0 80 19 134/65 95 Nasal Cannula 3.0 12/27/16 22:24 148/55 12/27/16 22:23 78 20 94 Nasal Cannula 3.0 12/27/16 21:03 93 Nasal Cannula 3.0 12/27/16 20:45 79 24 147/56 94 Nasal Cannula 3.0 Physical Exam Comments: GENERAL: Lying in bed and periodically moan and shout in pain., nasal cannula in place EYE EXAM: normal conjunctiva, PERRL and EOM's grossly intact NECK: Old incision over trachea. LUNGS: Rhonchi noted bilaterally. HEART: no murmurs, S1 normal and S2 normal ABDOMEN: Old bruising with palpable hernia. BACK: Back is symmetrical on inspection and there is no deformity, no midline tenderness, no CVA tenderness. SKIN: no rashes and no bruising UPPER EXTREMITIES: upper extremities are grossly normal. LOWER EXTREMITIES: Left lower extremity below knee amputation. Sutures in place. No draining. No surrounding erythema. NEURO EXAM: Alert. Able to mumble and squeeze upper extremities on command. Eyes are open. Screams to pain on palpation of left lower leg. Laboratory Results Last 24 Hours Test 12/27/16 20:30 12/27/16 23:17 12/28/16 00:43 12/28/16 05:44 Urine Color YELLOW Urine Appearance CLOUDY Urine pH 5.5 Urine Specific [place] >= 1.030 Urine Protein 2+ Urine Glucose (UA) NEG Urine Ketones NEG Urine Occult Blood 2+ Urine Nitrite NEG Urine Bilirubin NEG Urine Urobilinogen NEG Urine Leukocyte Esterase MODERATE Urine RBC >30 /hpf Urine WBC >30 /hpf Urine Epithelial Cells >30 /lpf Urine Bacteria 2+ Urine Hyaline Casts >30 /lpf Urine Yeast PRESENT Bedside Glucose 245 mg/dl 265 mg/dl White Blood Count 9.75 K/uL Red Blood Count 2.99 M/uL Hemoglobin 8.5 g/dL Hematocrit 27.4 % Mean Corpuscular Volume 91.6 fL Mean Corpuscular Hemoglobin 28.4 pg Mean Corpuscular Hemoglobin Concent 31.0 g/dl Platelet Count 177 K/uL Mean Platelet Volume 8.4 fL Neutrophils (%) (Auto) 83.4 % Lymphocytes (%) (Auto) 5.0 % Monocytes (%) (Auto) 9.6 % Eosinophils (%) (Auto) 1.4 % Basophils (%) (Auto) 0.1 % Neutrophils # (Auto) 8.12 K/uL Lymphocytes # (Auto) 0.49 K/uL Monocytes # (Auto) 0.94 K/uL Eosinophils # (Auto) 0.14 K/uL Basophils # (Auto) 0.01 K/uL RDW Standard Deviation 64.6 fL RDW Coefficient of Variation 19.5 % Immature Granulocyte % (Auto) 0.5 % Immature Granulocyte # (Auto) 0.05 K/uL Polychromasia 1+ Prothrombin Time 16.6 SECONDS Prothromb Time International Ratio 1.5 Activated Partial Thromboplast Time 40.2 SECONDS Partial Thromboplastin Ratio 1.5 Sodium Level 143 mmol/L Potassium Level 5.3 mmol/L Chloride Level 108 mmol/L Carbon Dioxide Level 31 mmol/L Anion Gap 4.0 mmol/L Blood Urea Nitrogen 42 mg/dl Creatinine 1.60 mg/dl Est Creatinine Clear Calc Drug Dose 33.0 ml/min Estimated GFR () 36.9 Estimated GFR (Non- 31.9 BUN/Creatinine Ratio 26.0 Random Glucose 256 mg/dl Calcium Level 8.4 mg/dl Magnesium Level 2.9 mg/dl Total Creatine Kinase 61 U/L Creatine Kinase MB 0.6 ng/ml Creatine Kinase MB Ratio 1.0 Troponin I 0.173 ng/ml Test 12/28/16 06:07 12/28/16 11:36 12/28/16 14:13 12/28/16 16:09 Bedside Glucose 241 mg/dl 234 mg/dl 175 mg/dl Total Creatine Kinase 49 U/L Creatine Kinase MB 0.8 ng/ml Creatine Kinase MB Ratio 1.6 Troponin I 0.123 ng/ml Test 12/28/16 20:00 Bedside Glucose 178 mg/dl Assessment and Plan 71 female with Atrial fibrillation/CHF/history of SC - Elevated troponin of 0.383 trended down vuong to 0.173 to 0.123 , possible secondary to demand ischemia - Continue digoxin to 0.125 mg IV every morning. - Continue Lovenox 1mg kilogram subcutaneous every 12 hours, and diltiazem 10 mg IV every 4 hours when necessary systolic blood pressure greater than 150. - Pending Echo Pneumonia - Continue vancomycin IV, Zosyn IV, levofloxacin IV, pharmacy on case for management of antibiotics dosing. - Cont Xopenex with Atrovent nebulizers every 6 hours while awake and every 2 hours when necessary and Solu-Medrol 20 mg IV every 8 hours. - Continue to hold Spiriva and Advair discus for now. - Vent mask 35% Fio2%, saturating 99%. WBC trended downward, CXR shows: Congestive heart failure. Bibasilar parenchymal infiltrates. Cardiac megaly. Hypothyroidism - Cont levothyroxine sodium 125 g IV daily. GERD--cont pantoprazole 40 mg IV daily. Diabetes mellitus--As per pharmacy.started lantus. Chronic pain syndrome-Morphine Peripheral neuropathy--hold gabapentin 300 mg by mouth 3 times a day. Status post left BKA--sutures in place, wound looks clean. wound consult. Renal insufficiency/hyperkalemia--Improved Cr from 1.8 to 1.60 and K drop from 5.8 to 5.3 , cont gently hydrate with normal saline and repeat laboratories in the a.m. CODE STATUS--DO NOT RESUSCITATE Continued [facility] stay due to: multiple IV medications needed Discharge planning: residential facility
[2016-12-28] MEDS ORDERED: INSULIN GLARGINE SOLOSTAR 100 UNITS/ML 3 ML PEN SC SCH (21:00)
[2016-12-29] VITALS (14 sets, daily range): BP systolic 103–129; BP diastolic 58–71; PULSE 73–93; TEMP 36.4–37.1; O2SAT 93–100
[2016-12-29] MEDS: MoRPHine SULFATE 4 MG/ML 1 ML CARP\\VIAL IV PRN ×3 (00:54→22:10)
[2016-12-29] MEDS: LORAZEPAM 2 MG/ML 1 ML VIAL IV PRN ×2 (00:54→17:41)
[2016-12-29] MEDS: VANCOMYCIN INJ 1,350 MG in SODIUM CHLORIDE 0.9% 250ML 250 ML IV SCH ×2 (01:41→22:10)
[2016-12-29] MEDS ORDERED: INSULIN ASPART 100 UNITS/ML 3 ML PEN SC ONE (02:00)
[2016-12-29] MEDS: LEVALBUTEROL 1.25MG/0.5ML NEB INH SCH ×4 (02:22→19:28)
[2016-12-29] MEDS: IPRATROPIUM BROMIDE NEB SOLN 0.02% 2.5 ML VIAL INH SCH ×4 (02:22→19:28)
[2016-12-29] MEDS: PIPERACILL/TAZOBAC IV 4.5 GM in DEXTROSE 5% 100ML IV SCH ×3 (05:41→23:10)
[2016-12-29 06:06] LABS: HEMATOCRIT 26.5 % (37-47); MEAN CELL VOLUME 92.7 fL (80-100); MEAN CORPUSCULAR HEMOGLOBIN 28.7 pg (25-34); MEAN CORPUSCULAR HGB CONC 30.9 g/dl (32-36); MEAN PLATELET VOLUME 8.6 fL (7.4-10.4); PLATELET COUNT 166 K/uL (130-400); RED BLOOD COUNT 2.86 M/uL (4.2-5.4); WHITE BLOOD COUNT 9.28 K/uL (4.8-10.8)
[2016-12-29 06:18] LABS: INR 1.3 (0.9-1.1); PARTIAL THROMBOPLASTIN RATIO 1.5; PROTHROMBIN TIME (PATIENT) 14.4 SECONDS (9.0-12.0)
[2016-12-29 06:25] LABS: ANISOCYTOSIS PRESENT; BASO % 0.1 %; BASO ABS # 0.01 K/uL (0-0.2); COMPLETE YES; EOS % 4.4 %; IG% 0.4 %; LYMPH % 6.3 %; LYMPH ABS # 0.58 K/uL (1.2-3.4); MONO % 6.1 %; NEUT % 82.7 %; POLYCHROMASIA 1+
[2016-12-29 06:46] LABS: CREATININE 1.3 mg/dl (0.60-1.20)
[2016-12-29 06:47] LABS: BUN/CREATININE RATIO 25.3 (10-20); CALCIUM 8.4 mg/dl (8.5-10.1); MAGNESIUM 2.8 mg/dl (1.8-2.4); POTASSIUM 4.4 mmol/L (3.5-5.1)
[2016-12-29] MEDS: INSULIN ASPART 100 UNITS/ML 3 ML PEN SC SCH ×4 (07:00→21:00)
[2016-12-29] MEDS: SODIUM CHLORIDE 0.9% 1000ML 1,000 ML IV SCH ×2 (07:33→15:43)
[2016-12-29] MEDS: NYSTATIN OINT 15 GM TUBE EXT SCH ×2 (07:34→21:00)
[2016-12-29] MEDS: ENOXAPARIN 100 MG/1ML SYR SQ SCH (07:36)
[2016-12-29] MEDS: LEVOTHYROXINE SODIUM IV SCH (09:00)
[2016-12-29] MEDS ORDERED: HYDROmorphone INJ 1 MG/ML SYR IV STA (10:01)
[2016-12-29] MEDS ORDERED: LOPERAMIDE HCL 2 MG CAP PO STA ×2 (10:04→12:27)
[2016-12-29] MEDS: PANTOprazole INJ 40 MG in SYRINGE 0 ML IV SCH (12:28)
--- NOTE | 2016-12-29 13:49 | Pharmacy Progress Note ---
Glycemic Control: Progress Nt Date of Service Dec 29, 2016. Scope Glycemic Pharmacist consulted by Dr Faustin on 12/28 for glycemic control and to write orders per [facility] inpatient glycemic control protocol. Objective Accuchecks BSG (last 24hrs): Test 12/28/16 16:09 12/28/16 20:00 12/29/16 02:27 12/29/16 05:25 Bedside Glucose 175 mg/dl (70-90) 178 mg/dl (70-90) 85 mg/dl (70-90) Random Glucose 84 mg/dl (70-99) Test 12/29/16 06:45 12/29/16 09:43 12/29/16 12:06 Bedside Glucose 79 mg/dl (70-90) 148 mg/dl (70-90) 129 mg/dl (70-90) Laboratory Data (last 24hrs) Test 12/29/16 05:25 Anion Gap 3.0 mmol/L BUN/Creatinine Ratio 25.3 Blood Urea Nitrogen 33 mg/dl Creatinine 1.30 mg/dl Potassium Level 4.4 mmol/L Sodium Level 145 mmol/L White Blood Count 9.28 K/uL Red Blood Count 2.86 M/uL Hemoglobin 8.2 g/dL Hematocrit 26.5 % Mean Corpuscular Volume 92.7 fL Mean Corpuscular Hemoglobin 28.7 pg Mean Corpuscular Hemoglobin Concent 30.9 g/dl Platelet Count 166 K/uL Mean Platelet Volume 8.6 fL Neutrophils (%) (Auto) 82.7 % Lymphocytes (%) (Auto) 6.3 % Monocytes (%) (Auto) 6.1 % Eosinophils (%) (Auto) 4.4 % Basophils (%) (Auto) 0.1 % Neutrophils # (Auto) 7.67 K/uL Lymphocytes # (Auto) 0.58 K/uL Monocytes # (Auto) 0.57 K/uL Eosinophils # (Auto) 0.41 K/uL Basophils # (Auto) 0.01 K/uL Recent Pertinent Medications Outpatient Anti-diabetic Regimen: (at [facility]) - note: BSGs were in the 200s and 300s there * Novolog per sliding scale * A1c = 5.3 % 09/20/16 The patient is currently receiving: * Basal insulin: Lantus 20 units BID * Correctional Insulin: Novolog Correction per scale ACHS + 0200 Goal Range: Low 100 mg/dL - High 150 mg/dL Correction Factor: 25 mg/dL/unit * Prandial insulin: Per carb ratio of 1 unit per 9 grams CHO consumed Risk Factors for Insulin Resistance: * Infection: on Levaquin, Zosyn and vanc for pneumonia * Diet: type 2 diabetes diet - almost zero intake yesterday, but somewhat improved today Assessment & Plan ASSESSMENT: 12/28/16 * Ms. Gloria is a 71 y/o female admitted for A.fib and pneumonia from [facility] * She is well known to the pharmacy glycemic service from previous admissions but had always been on 70/30 insulin - I'm not sure when this was d/c'd * I spoke with the nurse at [facility] to get an idea of the patient's BSGs prior to admission since she was just on the sliding scale there * The nurse reported that her BSGs were mostly in the 200s, with the mid-300s immediately prior to this admission * It would make sense for her to require some sort of basal insulin as an outpatient - will need to look into this further prior to making recommendations for discharge * For now, will base insulin regimen off of previous admissions in which she required ~80-100 units/day while eating * Will plan to start basal insulin in the form of Lantus and utilize BID dosing for ease of titration * She is already on Novolog but will tighten the parameters to provide additional coverage * ADA & AACE recommend a goal blood sugar range 140-180 mg/dl for the majority of critically ill & non-critically ill patients. However, more stringent targets may be selected in individual cases. 12/29/16 * Ms. Gloria received 51 units of insulin yesterday w/ BSGs ranging from 79- 179 since starting basal insulin * Her fasting BSG was "low" this AM so I held her AM Lantus with plans to re- evaluate * Her BSG has not decreased further but it appears that 40 units of basal was too much for her w/ minimal po intake * Will plan to reduce by 25% and give dose w/ dinner tonight * Plans to re-evaluate tomorrow to determine further basal dosing PLAN FOR INPATIENT GLYCEMIC CONTROL: * Decrease Lantus to 30 units x 1 tonight * Continue Novolog ACHS * Goal 100-150 * CF 25 * CR 9 DISCHARGE RECOMMENDATIONS: * Will most likely need basal on discharge * Plan will be determined once more info obtained as to why 70/30 was discontinued Thank you.
--- NOTE | 2016-12-29 15:14 | Progress Note ---
Subjective Date of Service: Dec 29, 2016. Subjective Pt evaluation today including: conversation w/ patient, physical exam, chart review, lab review, review of studies, review of inpatient medication list Pain: pain in left lower leg secondary knee below amputation and sores on buttok Voiding: pratt catheter in place Pt is more oriented to self and surroundings, and c/o of pain all over her body. Pt is not in acute distress. Pt denies fever, chills , nausea, vomiting. Problem List Medical Problems: (1) Atrial fibrillation Status: Acute (2) Bifascicular block Status: Acute (3) Cellulitis of both lower extremities Status: Acute (4) Cellulitis of foot, left Status: Acute (5) Cellulitis of left lower leg Status: Acute (6) CHF (congestive heart failure) Status: Acute (7) Constipation Status: Acute (8) Diabetic foot ulcer Status: Acute (9) Electrolyte abnormality Status: Acute (10) Hyperkalemia Status: Acute (11) Hypokalemia Status: Acute (12) Leukocytosis Status: Acute (13) PNA (pneumonia) Status: Acute (14) Sepsis Status: Acute (15) Sepsis Status: Acute (16) UTI (urinary tract infection) Status: Acute (17) UTI (urinary tract infection) Status: Acute Review of Systems Constitutional: No fever, No sweats Eyes: No discharge Respiratory: No shortness of breath, No sputum Cardiac: No chest pain, No palpitations Abdomen: + diarrhea, No nausea, No pain, No vomiting Skin: + rash (buttocks under both breast , groin area and axillary region) Medications Medications (Trade) Dose Ordered Sig/Hans Route Start Time Stop Time Status Last Admin Dose Admin Digoxin 125 mcg/ Syringe 10 ml @ 2 mls/min DAILY@16 IV 12/28/16 16:00 01/27/17 15:59 12/28/16 18:55 2 MLS/MIN Levofloxacin/Prmx (Levaquin / D5W/ Premixed D5W) 50 ml @ 50 mls/hr DAILY@2100 IV 12/28/16 21:00 01/02/17 21:59 12/28/16 20:21 50 MLS/HR Nystatin 1 appln 1 appln BID EXT 12/28/16 21:00 01/27/17 20:59 12/29/16 07:34 1 APPLN Vancomycin HCl/ Sodium Chloride (Vancomycin Inj/ Nss 250ml) 277 ml @ 125 mls/hr Q24H IV 12/28/16 23:00 01/04/17 22:59 12/29/16 01:41 125 MLS/HR Insulin Glargine (Lantus Solostar Pen) 20 unit BID SC 12/28/16 21:00 12/29/16 07:45 DC 12/28/16 20:26 20 UNIT Loperamide HCl (Imodium Cap) 4 mg NOW STAT PO 12/28/16 19:28 12/28/16 19:29 DC 12/28/16 19:38 4 MG Hydromorphone HCl (Dilaudid Inj) 1 mg NOW STAT IV 12/28/16 19:29 12/28/16 19:30 DC 12/28/16 19:39 1 MG Hydromorphone HCl (Dilaudid Inj) 1 mg NOW STAT IV 12/29/16 10:01 12/29/16 10:07 DC 12/29/16 10:13 1 MG Loperamide HCl (Imodium Cap) 4 mg NOW STAT PO 12/29/16 12:27 12/29/16 12:28 DC 12/29/16 12:45 4 MG Objective Vital Signs Date Time Temp Pulse Resp B/P Pulse Ox O2 Delivery O2 Flow Rate FiO2 12/29/16 14:20 88 16 100 Nasal Cannula 2.0 12/29/16 11:38 36.9 87 19 118/70 99 Nasal Cannula 3.0 12/29/16 08:00 99 3.0 12/29/16 07:58 36.9 86 20 129/62 94 Nasal Cannula 2.0 12/29/16 07:38 93 16 93 Room Air 12/29/16 05:49 93 Room Air 12/29/16 04:00 Venturi Mask 9.0 35 12/29/16 03:54 37.1 88 24 118/62 100 Venturi Mask 9.0 35 12/29/16 02:22 78 16 97 Venturi Mask 9.0 35 12/29/16 00:00 Venturi Mask 9.0 35 12/28/16 23:51 36.7 82 21 122/54 98 Venturi Mask 9.0 35 12/28/16 20:00 Venturi Mask 9.0 35 12/28/16 19:28 37.2 89 20 113/65 99 Venturi Mask 9.0 35 12/28/16 18:58 85 16 99 Nasal Cannula 2.0 12/28/16 18:55 88 12/28/16 16:00 Nasal Cannula 3.0 12/28/16 15:55 37.2 89 20 124/66 94 Nasal Cannula 3.0 Physical Exam General Appearance: no apparent distress Neck: supple Respiratory/Chest: + rhonchi, + wheezing Cardiovascular: regular rate, rhythm, no gallop, no murmur Abdomen: normal bowel sounds, non tender (left knee below amputation), soft Extremities: no pedal edema, no calf tenderness Neurologic/Psychiatric: alert Skin: + rash (buttocks, groin area, bilateral axillary area) Laboratory Results Last 24 Hours Test 12/28/16 16:09 12/28/16 20:00 12/29/16 02:27 12/29/16 05:25 Bedside Glucose 175 mg/dl 178 mg/dl 85 mg/dl White Blood Count 9.28 K/uL Red Blood Count 2.86 M/uL Hemoglobin 8.2 g/dL Hematocrit 26.5 % Mean Corpuscular Volume 92.7 fL Mean Corpuscular Hemoglobin 28.7 pg Mean Corpuscular Hemoglobin Concent 30.9 g/dl Platelet Count 166 K/uL Mean Platelet Volume 8.6 fL Neutrophils (%) (Auto) 82.7 % Lymphocytes (%) (Auto) 6.3 % Monocytes (%) (Auto) 6.1 % Eosinophils (%) (Auto) 4.4 % Basophils (%) (Auto) 0.1 % Neutrophils # (Auto) 7.67 K/uL Lymphocytes # (Auto) 0.58 K/uL Monocytes # (Auto) 0.57 K/uL Eosinophils # (Auto) 0.41 K/uL Basophils # (Auto) 0.01 K/uL RDW Standard Deviation 66.9 fL RDW Coefficient of Variation 19.8 % Immature Granulocyte % (Auto) 0.4 % Immature Granulocyte # (Auto) 0.04 K/uL Polychromasia 1+ Anisocytosis PRESENT Prothrombin Time 14.4 SECONDS Prothromb Time International Ratio 1.3 Activated Partial Thromboplast Time 38.5 SECONDS Partial Thromboplastin Ratio 1.5 Sodium Level 145 mmol/L Potassium Level 4.4 mmol/L Chloride Level 110 mmol/L Carbon Dioxide Level 32 mmol/L Anion Gap 3.0 mmol/L Blood Urea Nitrogen 33 mg/dl Creatinine 1.30 mg/dl Est Creatinine Clear Calc Drug Dose 40.7 ml/min Estimated GFR () 47.5 Estimated GFR (Non- 41.0 BUN/Creatinine Ratio 25.3 Random Glucose 84 mg/dl Calcium Level 8.4 mg/dl Magnesium Level 2.8 mg/dl Test 12/29/16 06:45 12/29/16 09:43 12/29/16 12:06 Bedside Glucose 79 mg/dl 148 mg/dl 129 mg/dl Assessment and Plan 71 female with Atrial fibrillation/CHF/history of [place] - Elevated troponin of 0.383 trended down vuong to 0.173 to 0.123 , possible secondary to demand ischemia vs NSTEMI - Continue digoxin to 0.125 mg IV every morning. - Continue diltiazem 10 mg IV every 4 hours when necessary systolic blood pressure greater than 150. Echo pending, if Echo normal will discontinue lovenox. - will appreciate cardiology input. Pneumonia - Continue vancomycin IV, Zosyn IV, levofloxacin IV, pharmacy on case for management of antibiotics dosing. - Cont Xopenex with Atrovent nebulizers every 6 hours while awake and every 2 hours when necessary and Solu-Medrol 20 mg IV every 8 hours. - Continue to hold Spiriva and Advair discus for now. - O2 saturating 99% via 2L NC. WBC trended downward, CXR shows: Congestive heart failure. Bibasilar parenchymal infiltrates and cardiomegaly. - repeat Chest X-ray in morning. Hypothyroidism - Cont levothyroxine sodium 125 g IV daily. GERD--cont pantoprazole 40 mg IV daily. Diabetes mellitus--As per pharmacy.continue lantus. Chronic pain syndrome-Morphine. Peripheral neuropathy--hold gabapentin 300 mg by mouth 3 times a day. Status post left BKA--sutures in place, wound looks clean. wound consult pending , . Renal insufficiency/hyperkalemia--Improved Cr from 1.60 to 1.3 and K drop from 5.3 to 4.4 , cont gently hydrate with normal saline and repeat laboratories in the a.m. CODE STATUS--DO NOT RESUSCITATE Continued [facility] stay due to: multiple IV medications needed Discharge planning: senior living facility
[2016-12-29] MEDS: DIGOXIN IV 125 MCG in SYRINGE 9.5 ML IV SCH (16:00)
[2016-12-29] MEDS: MoRPHine SULFATE 2 MG/ML CARP IV PRN (16:01)
[2016-12-29] MEDS ORDERED: INSULIN GLARGINE SOLOSTAR 100 UNITS/ML 3 ML PEN SC ONE (17:00)
[2016-12-29] MEDS ORDERED: NURSING VERBAL MED ORDER ONE (18:30)
[2016-12-29] MEDS ORDERED: HALOPERIDOL LACTATE 5 MG/ML 1 ML VIAL IV ONE (18:30)
--- NOTE | 2016-12-29 19:25 | DIAGNOSTIC IMAGING REPORT ---
CHEST ONE VIEW PORTABLE HISTORY: Pneumonia. COMPARISON: Chest 12/27/2016. FINDINGS: Cardiomegaly, pulmonary edema, and small bilateral pleural effusions have slightly progressed. No pneumothorax. Bibasilar densities may represent atelectasis from the pleural effusions. This is also unchanged. IMPRESSION: Slight progression of the pulmonary edema pattern and small bilateral pleural effusions. Cardiomegaly persists. Electronically signed by: Alexander Herman M.D. 12/29/2016 7:23 PM Dictated Date/Time: 12/29/2016 7:22 PM
[2016-12-29] MEDS ORDERED: INSULIN GLARGINE SOLOSTAR 100 UNITS/ML 3 ML PEN SC SCH (21:00)
[2016-12-29] MEDS: LEVOFLOXACIN 250MG / D5W IV SCH (22:10)
[2016-12-30] VITALS (10 sets, daily range): BP systolic 93–149; BP diastolic 52–72; PULSE 74–90; TEMP 36.7–37.4; O2SAT 93–100
[2016-12-30] MEDS: SODIUM CHLORIDE 0.9% 1000ML 1,000 ML IV SCH ×2 (00:49→14:40)
[2016-12-30] MEDS: MoRPHine SULFATE 4 MG/ML 1 ML CARP\\VIAL IV PRN (01:17)
[2016-12-30] MEDS: LORAZEPAM 2 MG/ML 1 ML VIAL IV PRN (01:18)
[2016-12-30] MEDS ORDERED: INSULIN ASPART 100 UNITS/ML 3 ML PEN SC SCH (02:00)
[2016-12-30] MEDS: LEVALBUTEROL 1.25MG/0.5ML NEB INH SCH ×4 (02:01→19:37)
[2016-12-30] MEDS: IPRATROPIUM BROMIDE NEB SOLN 0.02% 2.5 ML VIAL INH SCH ×4 (02:01→19:37)
[2016-12-30 06:03] LABS: EOS % 4.8 %; HEMATOCRIT 25.1 % (37-47); IG% 0.5 %; LYMPH % 6.7 %; LYMPH ABS # 0.54 K/uL (1.2-3.4); MEAN CELL VOLUME 91.6 fL (80-100); MEAN CORPUSCULAR HEMOGLOBIN 28.1 pg (25-34); MEAN CORPUSCULAR HGB CONC 30.7 g/dl (32-36); MEAN PLATELET VOLUME 8.8 fL (7.4-10.4); MONO % 8.1 %; NEUT % 79.9 %; PLATELET COUNT 176 K/uL (130-400); RED BLOOD COUNT 2.74 M/uL (4.2-5.4)
[2016-12-30 06:20] LABS: INR 1.3 (0.9-1.1); PARTIAL THROMBOPLASTIN RATIO 1.2
[2016-12-30 06:28] LABS: COMPLETE YES; POLYCHROMASIA 1+
[2016-12-30] MEDS: PIPERACILL/TAZOBAC IV 4.5 GM in DEXTROSE 5% 100ML IV SCH ×3 (06:31→22:06)
[2016-12-30 06:51] LABS: BUN/CREATININE RATIO 24.4 (10-20); CALCIUM 8.1 mg/dl (8.5-10.1); MAGNESIUM 2.5 mg/dl (1.8-2.4); POTASSIUM 4.1 mmol/L (3.5-5.1)
[2016-12-30] MEDS: INSULIN ASPART 100 UNITS/ML 3 ML PEN SC SCH ×4 (07:00→20:48)
[2016-12-30] MEDS: ENOXAPARIN 100 MG/1ML SYR SQ SCH ×2 (09:36→20:54)
[2016-12-30] MEDS: NYSTATIN OINT 15 GM TUBE EXT SCH ×2 (09:36→20:49)
[2016-12-30] MEDS: LEVOTHYROXINE SODIUM IV SCH (09:36)
--- NOTE | 2016-12-30 10:26 | Pharmacy Progress Note ---
Glycemic Control: Progress Nt Date of Service Dec 30, 2016. Scope Glycemic Pharmacist consulted by Dr Faustin on 12/28 for glycemic control and to write orders per [facility] inpatient glycemic control protocol. Objective Accuchecks BSG (last 24hrs): Test 12/29/16 12:06 12/29/16 15:54 12/29/16 20:11 12/30/16 01:54 Bedside Glucose 129 mg/dl (70-90) 123 mg/dl (70-90) 145 mg/dl (70-90) 97 mg/dl (70-90) Test 12/30/16 05:45 12/30/16 06:28 Random Glucose 82 mg/dl (70-99) Bedside Glucose 78 mg/dl (70-90) Laboratory Data (last 24hrs) Test 12/30/16 05:45 Anion Gap 4.0 mmol/L BUN/Creatinine Ratio 24.4 Blood Urea Nitrogen 24 mg/dl Creatinine 1.00 mg/dl Potassium Level 4.1 mmol/L Sodium Level 145 mmol/L White Blood Count 8.10 K/uL Red Blood Count 2.74 M/uL Hemoglobin 7.7 g/dL Hematocrit 25.1 % Mean Corpuscular Volume 91.6 fL Mean Corpuscular Hemoglobin 28.1 pg Mean Corpuscular Hemoglobin Concent 30.7 g/dl Platelet Count 176 K/uL Mean Platelet Volume 8.8 fL Neutrophils (%) (Auto) 79.9 % Lymphocytes (%) (Auto) 6.7 % Monocytes (%) (Auto) 8.1 % Eosinophils (%) (Auto) 4.8 % Basophils (%) (Auto) 0.0 % Neutrophils # (Auto) 6.47 K/uL Lymphocytes # (Auto) 0.54 K/uL Monocytes # (Auto) 0.66 K/uL Eosinophils # (Auto) 0.39 K/uL Basophils # (Auto) 0.00 K/uL Recent Pertinent Medications Outpatient Anti-diabetic Regimen: (at [facility]) - note: BSGs were in the 200s and 300s there * Novolog per sliding scale * A1c = 5.3 % 09/20/16 The patient is currently receiving: * Basal insulin: Lantus 20 units BID on 12/28 Lantus 30 units x 1 on 12/29 * Correctional Insulin: Novolog Correction per scale ACHS + 0200 Goal Range: Low 100 mg/dL - High 150 mg/dL Correction Factor: 25 mg/dL/unit * Prandial insulin: Per carb ratio of 1 unit per 9 grams CHO consumed Risk Factors for Insulin Resistance: * Infection: on Levaquin, Zosyn and vanc for pneumonia * Diet: type 2 diabetes diet - improved yesterday Assessment & Plan ASSESSMENT: 12/28/16 * Ms. Gloria is a 71 y/o female admitted for A.fib and pneumonia from [facility] * She is well known to the pharmacy glycemic service from previous admissions but had always been on 70/30 insulin - I'm not sure when this was d/c'd * I spoke with the nurse at [facility] to get an idea of the patient's BSGs prior to admission since she was just on the sliding scale there * The nurse reported that her BSGs were mostly in the 200s, with the mid-300s immediately prior to this admission * It would make sense for her to require some sort of basal insulin as an outpatient - will need to look into this further prior to making recommendations for discharge * For now, will base insulin regimen off of previous admissions in which she required ~80-100 units/day while eating * Will plan to start basal insulin in the form of Lantus and utilize BID dosing for ease of titration * She is already on Novolog but will tighten the parameters to provide additional coverage * ADA & AACE recommend a goal blood sugar range 140-180 mg/dl for the majority of critically ill & non-critically ill patients. However, more stringent targets may be selected in individual cases. 12/29/16 * Ms. Gloria received 51 units of insulin yesterday w/ BSGs ranging from 79- 179 since starting basal insulin * Her fasting BSG was "low" this AM so I held her AM Lantus with plans to re- evaluate * Her BSG has not decreased further but it appears that 40 units of basal was too much for her w/ minimal po intake * Will plan to reduce by 25% and give dose w/ dinner tonight * Plans to re-evaluate tomorrow to determine further basal dosing 12/30/16 * Patient rec'd 34 units of insulin yesterday w/ BSGs ranging from 78-148 * Her Lantus dose was cut back by 25% yesterday and her BSGs have decreased further today - this may be due to decreased po intake? * Of note, her SCr has improved so I would expect her to be more insulin resistant * Will be more aggressive w/ Lantus reduction because of the hypoglycemia PLAN FOR INPATIENT GLYCEMIC CONTROL: * Reduce Lantus to 15 units qHS - this will be held if BSG remains less than 100 * Continue Novolog ACHS * Goal 100-150 * CF 30 * CR 11 DISCHARGE RECOMMENDATIONS: * Will most likely need basal on discharge * Plan will be determined once more info obtained on requirements here Thank you.
--- NOTE | 2016-12-30 10:51 | ECHOCARDIOGRAM REPORT ---
*NOTICE TO RECEIVING CONSTITUTION PARTY AGENCY This information is strictly Confidential and protected under [place] law. [place] law prohibits you from making any further disclosure of this information unless further disclosure is expressly permitted by the written consent of the person to whom it pertains or is authorized by law. A general authorization for the release of medical or other information is not sufficient for this purpose. Hospital accepts no responsibility if the information is made available to any other person, INCLUDING THE PATIENT. Interpretation Summary * Name: KENNETH HURT Study Date: 12/30/2016 06:38 AM BP: 130/54 mmHg * Patient Location: C.2T\S\S233\S\1 HR: 77 * : 1945 (M/d/yyy) Gender: Female Height: 62 in * Age: 71 yrs Ethnicity: [place] Weight: 203 lb * Ordering Physician: Pennie Faustin * Referring Physician: Self, Referred * Performed By: Jovita Nguyen RCS * * Reason For Study: NSTEMI * BSA: 1.9 m2 * -- Conclusions -- * There is borderline concentric left ventricular hypertrophy. * Left ventricular systolic function is normal. * The left atrium is severely dilated. * The right atrium is moderately dilated. * There is mild mitral regurgitation. * Right ventricular systolic pressure is elevated at 30-40mmHg. Procedure Details * A complete two-dimensional transthoracic echocardiogram was performed (2D, M-mode, Doppler and color flow Doppler). Left Ventricle * The left ventricle is normal in size. * There is borderline concentric left ventricular hypertrophy. * Ejection Fraction = 50-55%. * Left ventricular systolic function is normal. Right Ventricle * The right ventricle is grossly normal size. * The right ventricular systolic function is normal. Atria * The left atrium is severely dilated. * A linear density is seen in the posterior left atrium. This was unchanged for a prior study dated 02/2016 * The right atrium is moderately dilated. Mitral Valve * There is moderate mitral annular calcification. * Posterior annulus is heavily calcified * There is mild mitral regurgitation. Tricuspid Valve * There is mild tricuspid regurgitation. * Right ventricular systolic pressure is elevated at 30-40mmHg. Aortic Valve * Aortic valve sclerosis mild, without significant aortic valvular stenosis. * There is no significant aortic regurgitation. Great Vessels * The aortic root is normal size. Pericardium/Pleural * There is no pericardial effusion. Great Vessels * The inferior vena cava is mildly dilated. MMode 2D Measurements and Calculations IVSd 1.2 cm IVSs 1.4 cm LVIDd 4.6 cm LVIDs 3.2 cm LVPWd 1.2 cm LVPWs 1.8 cm IVS/LVPW 0.97 FS 29.0 % EDV(Teich) 95.2 ml ESV(Teich) 42.0 ml EF(Teich) 55.9 % EDV(cubed) 94.6 ml ESV(cubed) 33.8 ml EF(cubed) 64.2 % % IVS thick 21.0 % % LVPW thick 46.0 % LV mass(C)d 201.4 grams LV mass(C)dI 104.7 grams/m\S\2 LV mass(C)s 194.3 grams LV mass(C)sI 101.0 grams/m\S\2 SV(Teich) 53.2 ml SI(Teich) 27.6 ml/m\S\2 SV(cubed) 60.8 ml SI(cubed) 31.6 ml/m\S\2 Ao root diam 3.5 cm Ao root area 9.6 cm\S\2 LA dimension 5.7 cm LA/Ao 1.6 LVOT diam 1.7 cm LVOT area 2.3 cm\S\2 LVAd ap4 34.9 cm\S\2 LVLd ap4 8.7 cm EDV(MOD-sp4) 115.5 ml EDV(sp4-el) 119.0 ml Doppler Measurements and Calculations MV E max nemo 184.4 cm/sec MV P1/2t max nemo 182.4 cm/sec MV P1/2t 101.6 msec MVA(P1/2t) 2.2 cm\S\2 MV dec slope 525.9 cm/sec\S\2 MV dec time 0.42 sec Ao V2 max 176.8 cm/sec Ao max PG 12.5 mmHg Ao max PG (full) 8.6 mmHg JACE(V,A) 1.3 cm\S\2 JACE(V,D) 1.3 cm\S\2 LV V1 max PG 3.9 mmHg LV V1 max 98.1 cm/sec PA V2 max 121.2 cm/sec PA max PG 5.9 mmHg TR max nemo 225.6 cm/sec
--- NOTE | 2016-12-30 12:45 | Clinical Documentation Query ---
CLINICAL DOCUMENTATION QUERY 71-y/o female alf resident presents with failed treated of pneumonia. Query #1/3 In your clinical opinion is this patient being managed for: ( X ) Treating for possible Gram negative or Staphylococcal pneumonia in setting of HCAP treated with IV Zosyn, IV Vancomycin, & IV Levofloxacin ( ) Other explanation of clinical findings (Please Explain) ( ) Unable to determine (Please Define) ( ) Need to Discuss ( ) Not Agree The medical record reflects the following clinical findings, treatment, and risk factors. Clinical Indicators: Leukocytosis 11.26, fever 38.1, CXR showed Bibasilar parenchymal infiltrates. Treatment: O2, IV bolus, Telemetry, IV Zosyn, IV Vancomycin, IV Levofloxacin, Risk Factors: Age, healthcare facility residence, COPD, and failed RX of pneumonia at alf. Query #2/3 In your clinical opinion is this patient being managed for: ( ) Metabolic encephalopathy in setting of acute infection (pneumonia) treated with IV antibiotics ( X ) Other explanation of clinical findings (Please Explain) ( ) Unable to determine (Please Define) ( ) Need to Discuss ( ) Not Agree The medical record reflects the following clinical findings, treatment, and risk factors. Clinical Indicators: Per ED assessment patient unable to follow commands or answer question appropriately. Underlying pneumonia, hyperkalemia, fever. and AINSLEY. Treatment: Telemetry, IV Zosyn, IV Vancomycin, IV Levofloxacin, Risk Factors: Age, infection, electrolyte imbalances. Query #3/3 In your clinical opinion is this patient being managed for: ( ) AINSLEY on CKD stage 3 in setting of acute illness treated with IV bolus and daily PRP's. (X ) Other explanation of clinical findings (Please Explain) ( ) Unable to determine (Please Define) ( ) Need to Discuss ( ) Not Agree The medical record reflects the following clinical findings, treatment, and risk factors. Clinical Indicators: BUN 40, Creatinine 1.90, GFR 25.9, Treatment: IV bolus, IV Zosyn, IV Vancomycin, IV Levofloxacin Risk Factors: Age, infection, Please clarify and document your clinical opinion in the progress notes and discharge summary. Terms such as "probable", "suspected", "likely", "questionable", "possible", or "still to be ruled out" are acceptable. IF IN AGREEMENT, YOU MUST DOCUMENT ABOVE DIAGNOSTIC STATEMENT IN DAILY PROGRESS NOTES AND DISCHARGE SUMMARY. This document is not part of the patient's record. Thank You, Theodore Bruce RN [phone]
[2016-12-30] MEDS: PANTOprazole INJ 40 MG in SYRINGE 0 ML IV SCH (13:24)
--- NOTE | 2016-12-30 15:42 | Progress Note ---
Subjective Date of Service: Dec 30, 2016. Subjective Pt evaluation today including: conversation w/ patient, physical exam, chart review, lab review, review of studies, conversation w/ career consultant, review of inpatient medication list patient appears lethargic but answering questions. wants to get out of bed to meet her son and . no pain anywhere. no sob. no chest pain. Problem List Medical Problems: (1) Atrial fibrillation Status: Acute (2) Bifascicular block Status: Acute (3) Cellulitis of both lower extremities Status: Acute (4) Cellulitis of foot, left Status: Acute (5) Cellulitis of left lower leg Status: Acute (6) CHF (congestive heart failure) Status: Acute (7) Constipation Status: Acute (8) Diabetic foot ulcer Status: Acute (9) Electrolyte abnormality Status: Acute (10) Hyperkalemia Status: Acute (11) Hypokalemia Status: Acute (12) Leukocytosis Status: Acute (13) PNA (pneumonia) Status: Acute (14) Sepsis Status: Acute (15) Sepsis Status: Acute (16) UTI (urinary tract infection) Status: Acute (17) UTI (urinary tract infection) Status: Acute Review of Systems All Other Systems: Reviewed and Negative Medications Dextrose (Dextrose 50% 50ML Syringe) 50 ml UD PRN IV; Start 12/27/16 at 21:45 ; Stop 01/26/17 at 21:44 Digoxin 125 mcg/ Syringe 10 ml @ 2 mls/min DAILY@16 IV Last administered on 12/29 16:00; Admin Dose 2 MLS/MIN; Start 12/28/16 at 16:00; Stop 01/27/17 at 15: 59 Diltiazem HCl 10 mg 10 mg Q4H PRN IV; Start 12/27/16 at 21:45; Stop 01/26/17 at 21:44 Enoxaparin Sodium (Lovenox Inj) 90 mg QAM SQ Last administered on 12/30/16 09: 36; Admin Dose 90 MG; Start 12/28/16 at 09:00; Stop 01/27/17 at 08:59 Glucagon (Glucagon Inj) 1 mg UD PRN SQ; Start 12/27/16 at 21:45; Stop 01/26/17 at 21:44 Glucose (Glucose 40% Gel) UD PRN PO; Start 12/27/16 at 21:45; Stop 01/26/17 at 21:44 Glucose (Glucose Chew Tab) 1 tabs UD PRN PO; Start 12/27/16 at 21:45; Stop at 21:44 Hydromorphone HCl (Dilaudid Inj) 1 mg Q6H PRN IV; Start 12/29/16 at 18:30; Stop 01/12/17 at 18:29 Insulin Aspart (novoLOG ASPART) SLIDING SCALE If C... ACHS SC Last administered on 12/29/16 16:15; Admin Dose 2 UNITS; Start 12/28/16 at 11:00; Stop 01/27/17 at 10:59 Insulin Glargine SEE PROTOCOL TEXT HS SC; Start 12/30/16 at 21:00; Stop at 20:59 Ipratropium [place] (Atrovent 0.02% 0.5MG/2.5ML Neb) 0.5 mg Q2H PRN INH; Start 12/27/16 at 22:45; Stop 01/26/17 at 22:44 Ipratropium [place] (Atrovent 0.02% 0.5MG/2.5ML Neb) 0.5 mg Q6R INH Last administered on 12/30/16 14:46; Admin Dose 0.5 MG; Start 12/28/16 at 03:00; Stop 01/27/17 at 02:59 Levalbuterol (Xopenex 1.25MG/ 0.5ML Neb) 1.25 mg Q6R INH Last administered on 14:46; Admin Dose 1.25 MG; Start 12/28/16 at 03:00; Stop 01/27/17 at 02: 59 Levalbuterol 1.25 mg 1.25 mg Q2H PRN INH; Start 12/27/16 at 22:45; Stop at 22:44 Levofloxacin 1 ea 1 ea UD PRN N/A; Start 12/27/16 at 23:45; Stop 01/26/17 at 23 :44 Levofloxacin/Prmx (Levaquin / D5W/ Premixed D5W) 50 ml @ 50 mls/hr DAILY@2100 IV Last administered on 12/29/16 22:10; Admin Dose 50 MLS/HR; Start 12/28/16 at 21:00; Stop 01/02/17 at 21:59 Levothyroxine Sodium/Syringe (Synthroid Inj/ Syringe) 6.25 ml @ 2 mls/min DAILY @09 IV Last administered on 12/30/16 09:36; Admin Dose 2 MLS/MIN; Start at 09:00; Stop 01/27/17 at 08:59 Lorazepam (Ativan Inj) 0.5 mg Q8 PRN IV Last administered on 12/30/16 01:18; Admin Dose 0.5 MG; Start 12/28/16 at 09:45; Stop 01/27/17 at 09:44 Miscellaneous Information (Consult Glycemic Management Pharmacy) 1 ea UD N/A; Start 12/28/16 at 09:56; Stop 01/27/17 at 09:55 Morphine Sulfate (MoRPHine SULFATE INJ) 2 mg Q2H PRN IV Last administered on 16:01; Admin Dose 2 MG; Start 12/27/16 at 21:45; Stop 01/10/17 at 21:44 Morphine Sulfate 4 mg 4 mg Q2H PRN IV Last administered on 12/30/16 01:17; Admin Dose 4 MG; Start 12/27/16 at 21:45; Stop 01/10/17 at 21:44 Nystatin (Mycostatin Oint) 1 appln BID EXT Last administered on 12/30/16 09:36 ; Admin Dose 1 APPLN; Start 12/28/16 at 21:00; Stop 01/27/17 at 20:59 Ondansetron HCl (Zofran Inj) 4 mg Q6H PRN IV; Start 12/27/16 at 21:45; Stop at 21:44 Pantoprazole Sodium/Syringe (Protonix Inj/ Syringe) 10 ml @ 5 mls/min DAILY@11 IV Last administered on 12/30/16 13:24; Admin Dose 5 MLS/MIN; Start 12/28/16 at 11:00; Stop 01/27/17 at 10:59 Piperacillin Sod/ Tazobactam Sod (Consult) 1 ea UD PRN N/A; Start 12/27/16 at 23:00; Stop 01/26/17 at 22:59 Piperacillin Sod/ Tazobactam Sod/ Dextrose (Zosyn Iv/D5 100ml) 120 ml @ 30 mls/ hr Q8H IV Last administered on 12/30/16 14:40; Admin Dose 30 MLS/HR; Start at 06:00; Stop 01/04/17 at 05:59 Sodium Chloride (Nss 1000ml) 1,000 ml @ 100 mls/hr Q10H IV Last administered on 12/30/16 14:40; Admin Dose 100 MLS/HR; Start 12/27/16 at 22:45; Stop at 22:44 Sodium Chloride ([place] Nasal [place]) 1 sprays PRN PRN NA Last administered on 16:46; Admin Dose 1 SPRAYS; Start 12/28/16 at 11:45; Stop 01/27/17 at 11 :44 Vancomycin HCl (Consult) 1 ea UD PRN N/A; Start 12/28/16 at 13:00; Stop at 12:59 Vancomycin HCl/ Sodium Chloride (Vancomycin Inj/ Nss 250ml) 277 ml @ 125 mls/ hr Q18H IV; Start 12/30/16 at 18:00; Stop 01/06/17 at 17:59 Objective Vital Signs Date Time Temp Pulse Resp B/P Pulse Ox O2 Delivery O2 Flow Rate FiO2 12/30/16 14:46 75 14 98 Nasal Cannula 2.0 12/30/16 12:00 Nasal Cannula 2.0 12/30/16 11:48 37.2 83 24 149/65 93 Nasal Cannula 2.0 12/30/16 08:00 Nasal Cannula 2.0 12/30/16 07:17 36.8 77 22 124/61 97 Nasal Cannula 2.0 12/30/16 07:00 75 16 99 Nasal Cannula 2.0 12/30/16 04:00 Nasal Cannula 2.0 12/30/16 03:31 36.7 82 20 130/54 98 Nasal Cannula 2.0 12/30/16 02:01 90 16 97 Nasal Cannula 2.0 12/30/16 00:02 Nasal Cannula 2.0 12/29/16 23:26 36.8 84 20 116/71 100 Nasal Cannula 2.0 12/29/16 20:00 Nasal Cannula 2.0 4/23/17 19:28 73 16 97 Nasal Cannula 2.0 12/29/16 19:00 36.9 80 18 103/58 94 Nasal Cannula 2.0 12/29/16 16:14 36.4 89 20 114/62 97 Nasal Cannula 3.0 12/29/16 16:00 97 2.0 12/29/16 16:00 73 Physical Exam Comments: nad, lethargic but awake and answering questions anicteric s1 s2 rrr, no murmurs appreciated basilar rales, no rhonchi, no wheezing abd soft nt/nd +BS L BKA without erythema, no drainage, no open wounds/ulcers Laboratory Results Last 24 Hours Test 12/29/16 15:54 12/29/16 20:11 12/30/16 01:54 12/30/16 05:45 Bedside Glucose 123 mg/dl 145 mg/dl 97 mg/dl White Blood Count 8.10 K/uL Red Blood Count 2.74 M/uL Hemoglobin 7.7 g/dL Hematocrit 25.1 % Mean Corpuscular Volume 91.6 fL Mean Corpuscular Hemoglobin 28.1 pg Mean Corpuscular Hemoglobin Concent 30.7 g/dl Platelet Count 176 K/uL Mean Platelet Volume 8.8 fL Neutrophils (%) (Auto) 79.9 % Lymphocytes (%) (Auto) 6.7 % Monocytes (%) (Auto) 8.1 % Eosinophils (%) (Auto) 4.8 % Basophils (%) (Auto) 0.0 % Neutrophils # (Auto) 6.47 K/uL Lymphocytes # (Auto) 0.54 K/uL Monocytes # (Auto) 0.66 K/uL Eosinophils # (Auto) 0.39 K/uL Basophils # (Auto) 0.00 K/uL RDW Standard Deviation 65.5 fL RDW Coefficient of Variation 19.7 % Immature Granulocyte % (Auto) 0.5 % Immature Granulocyte # (Auto) 0.04 K/uL Polychromasia 1+ Prothrombin Time 14.0 SECONDS Prothromb Time International Ratio 1.3 Activated Partial Thromboplast Time 31.4 SECONDS Partial Thromboplastin Ratio 1.2 Sodium Level 145 mmol/L Potassium Level 4.1 mmol/L Chloride Level 111 mmol/L Carbon Dioxide Level 30 mmol/L Anion Gap 4.0 mmol/L Blood Urea Nitrogen 24 mg/dl Creatinine 1.00 mg/dl Est Creatinine Clear Calc Drug Dose 53.8 ml/min Estimated GFR () 65.2 Estimated GFR (Non- 56.2 BUN/Creatinine Ratio 24.4 Random Glucose 82 mg/dl Calcium Level 8.1 mg/dl Magnesium Level 2.5 mg/dl Test 12/30/16 06:28 12/30/16 11:20 12/30/16 11:39 12/30/16 12:14 Bedside Glucose 78 mg/dl 64 mg/dl 59 mg/dl Random Vancomycin Level 21.5 mcg/ml Test 12/30/16 12:59 Assessment and Plan 1. Elevated troponin - not consistent with ACS - d/w cardio, conservative management at this time 2. Pulmonary edema with pleural effusions - Repeat CXR without e/o pneumonia - afebrile, no leukocytosis, doubt infectious process - will stop antibiotics at this time - will stop IVF and start furosemide 40 mg daily - daily weights, i/o 3. ?Pneumonia vs pulmonary edema - will obtain CT chest to evaluate pneumonia and further need for antibiotic 4. Afib - on Xarelto at home - switched over to lovenox, will give 90mg BID for therapeutic dose - dig IV for now - check dig level - cont diltiazem 5. T2DM - hypoglycemic episode this afternoon - now eating again - hold glargine tonight and only cover with ISS for now 6. AINSLEY - resolved - will restart lasix - was also on spironolactone at home, will hold off for now 7. diarrhea/loose stools - check C diff Continued [facility] stay due to: multiple IV medications needed Discharge planning: intermediate facility
[2016-12-30] MEDS ORDERED: FUROSEMIDE INJ 20 MG in SYRINGE 0 ML IV ONE (16:30)
--- NOTE | 2016-12-30 17:11 | DIAGNOSTIC IMAGING REPORT ---
CT SCAN OF THE CHEST WITHOUT IV CONTRAST CLINICAL HISTORY: Pneumonia. COMPARISON STUDY: Chest x-ray dated 12/29/2016. Chest CT dated 02/26/2007. TECHNIQUE: CT scan of the thorax was performed from the thoracic inlet to the upper abdomen. Images are reviewed in the axial, sagittal, and coronal planes. IV contrast was not administered for this examination as per the referring clinician. The examination is significantly degraded by motion artifact, 0 by streak artifact from the arms which could not be elevated above the chest. CT DOSE: 906.32 mGy.cm FINDINGS: Thyroid: Atrophic. Thoracic aorta: There is atherosclerotic calcification of the thoracic aorta, which is normal in caliber and demonstrates standard 3-vessel arch anatomy. Heart: The heart is enlarged and there is trace pericardial effusion. The coronary arteries and mitral annulus are densely calcified. There is diminished attenuation of the cardiac blood pool as compared to the myocardium suggesting anemia. Lungs and pleural spaces: Evaluation of the lung parenchyma is significantly degraded by motion artifact. There are moderate pleural effusions with bibasilar consolidation. Patchy airspace opacities are present in the upper lobes bilaterally. The trachea is grossly clear. Mediastinum: There are numerous mildly enlarged mediastinal lymph nodes. A precarinal node on image #106 measures 1.5 cm in short axis. [place]: Not well assessed without IV contrast. Axillae: There is no axillary lymphadenopathy. Upper abdomen: The liver appears cirrhotic in morphology. The spleen is markedly enlarged. Cortical atrophy is noted in the partially imaged kidneys. A right adrenal adenoma is seen on image #[id number] and measures 2.2 cm. This has been present dating back to 2006. A hiatal hernia is observed. Skeletal structures: The skeletal structures are osteopenic. No lytic or blastic bony lesions are seen. Degenerative change is seen throughout the thoracic spine. Arthritic change is also noted in the shoulders. Soft tissues: There is body wall edema. IMPRESSION: 1. Motion and streak artifact degraded examination. 2. There are moderate pleural effusions with bibasilar consolidation. This could represent atelectasis and/or pneumonia and clinical correlation will be required. Radiographic follow-up to resolution is recommended. 2. Patchy airspace opacities are seen within the upper lobes bilaterally. This could represent multifocal pneumonia and/or pulmonary edema. Clinical correlation will be again be required. 3. Cardiomegaly. 4. The appearance of the liver suggests cirrhosis. The spleen is enlarged. 5. Mildly enlarged mediastinal lymph nodes are nonspecific and likely on a reactive basis. 6. Additional findings as above. Electronically signed by: Rahul Early M.D. 12/30/2016 5:09 PM Dictated Date/Time: 12/30/2016 5:01 PM
[2016-12-30 17:23] LABS: FERRITIN 652.8 ng/ml (8.0-388.0)
[2016-12-30] MEDS: DIGOXIN IV 125 MCG in SYRINGE 9.5 ML IV SCH (17:30)
--- NOTE | 2016-12-30 17:56 | CARDIOLOGY CONSULTATION ---
DATE OF CONSULTATION: 12/30/2016 REFERRING PHYSICIAN: Pennie Faustin MD CHIEF COMPLAINT: Elevated troponin. HISTORY OF PRESENT ILLNESS: Mrs. Valery Gloria is a 71-year-old woman with a history of peripheral vascular disease but no known coronary artery disease who presented to [facility] after recent admission for nonhealing left leg. During that admission, the patient underwent below knee amputation and also suffered a brief neurologic event, the etiology of which could not be effectively delineated. She was discharged to a nursing facility, but presented again to [facility] with mental status changes and abnormal labs. The exact nature of her symptoms at the time of return are unclear, not well delineated in the chart. At the time of admission, the patient could not communicate well and therefore no symptoms were documented. Seems cardiac biomarkers were drawn at the time of her admission were noted to be elevated. At the time of the interview today, the patient is responsive, she is somewhat somnolent and very difficult to understand. She verbalized some pain in the left leg, but denied any symptoms of chest discomfort currently. She would answer directed questions provided little other history or symptom. Most of the information was derived from the chart. I did make an attempt to contact her son, but he was not currently available. PAST MEDICAL HISTORY: Significant for gastritis, chronic anemia, anxiety; atrial fibrillation, permanent; chronic renal insufficiency, COPD, diabetes mellitus, esophageal varices, hypertension, hypothyroidism, and obstructive sleep apnea. PAST SURGICAL HISTORY: Significant for the aforementioned below knee amputation, cholecystectomy and a remote history of a tracheostomy. OUTPATIENT MEDICATIONS: Included Advair, Augmentin, digoxin, diltiazem, furosemide, Floranex, Synthroid, omeprazole, potassium supplementation, Spiriva, theophylline, and Xarelto. ALLERGIES: INCLUDE DULOXETINE. SOCIAL HISTORY: The patient has a remote history of tobacco abuse, currently not smoking. She was previously resident of a nursing facility. She has no significant alcohol intake currently. FAMILY HISTORY: Noncontributory. Father did have coronary artery disease, has a history of breast cancer in the mother and a family history of diabetes. REVIEW OF SYSTEMS: This could not be reliably obtained due to the patient's relatively obtunded state and difficulty with communication. PHYSICAL EXAMINATION: GENERAL: The patient does not appear in any acute distress. She was alert and answered questions appropriately. She was oriented to person and place. CURRENT VITAL SIGNS: Included a blood pressure 149/65 with a pulse of 83. HEENT: Sclerae are anicteric. Pupils equal, reactive to light and accommodation. Extraocular movements were intact. NECK: Palpation of the submandibular region did not reveal any significant lymphadenopathy. The carotids were palpable bilaterally. I do not appreciate any bruits on auscultation. There is no evidence of jugular venous distention. Thyroid is not enlarged. LUNGS: Auscultation of her lungs revealed notable upper airway congestion and some coughing, overall diminished breath sounds with a prolonged expiratory phase. CARDIAC: Revealed her to be in irregularly irregular rhythm without notable murmur. PMI was not markedly displaced. ABDOMEN: Soft and nontender. She did have an incisional hernia approximately 3 cm in dimension in the left lower quadrant. EXTREMITIES: Evaluation of both wrists revealed radial pulses that were palpable bilaterally. I did not appreciate any cyanosis or clubbing. Evaluation of the lower extremities revealed a left below knee amputation with a well-healed scar; right lower extremity had significant eversion of the foot and some mild edema. SKIN: I do not appreciate any rashes on examination today. LABORATORY AND IMAGING STUDIES: Obtained initially included a cardiac troponin of 0.3, trending downwards to 0.12 two days ago. Current sodium is 145, potassium is 4.1, BUN was 24, creatinine was 1. White cell count was 8.1, hemoglobin was 7.7, and platelet count was 176. An EKG was obtained at the time of admission which revealed atrial fibrillation and a controlled rate, she had a right bundle branch block and left anterior fascicular block. Echocardiogram was obtained today which revealed overall preserved left ventricular systolic function with evidence of high right sided pressures and biatrial dilation. Chest x-ray was obtained on which suggested an element of pulmonary vascular congestion and cardiomegaly. ASSESSMENT AND PLAN: 1. Non-ST elevation myocardial infarction. The patient did have elevated cardiac biomarkers at the time of admission, when they actually became elevated is unclear. They trended downward since, last documented biomarker was approximately 5 days prior and that was normal. Whether this represents an acute plaque rupture event or whether this was demand ischemia, is unclear. The patient clearly has occult coronary disease, based on her peripheral vascular disease and other comorbidities. Unfortunately, there is no history which could be obtained due to her relatively obtunded state. She also has a history of hypoxia, which was described at the time of her presentation to the Emergency Room and significant anemia. Based on her inability to provide any history, her other comorbidities and the possibility this represents some form of demand ischemia, I would defer any additional evaluation at this point and simply treat her conservatively with good oxygenation, control of her hemodynamics and transfusion as needed. If she can tolerate anticoagulation in addition to Xarelto, aspirin could be prescribed. Hope to have a conversation with her family members to go over the option for additional investigation and explained my rational for recommending a conservative approach and is otherwise ill and debilitated woman. 2. Atrial fibrillation. Overall, rates appeared to be well controlled on single agent rate control with digoxin. She was discharged on long-acting diltiazem as well and this could be re-started if her rates increase and she will tolerate if hemodynamically. The patient does have multiple risk factors for stroke and ideally would be on anticoagulation such as Xarelto. This is being held currently due to concerns regarding anemia and possible occult bleeding. It would be reasonable to restart her anticoagulation, I think Xarelto would be a good choice and the addition of aspirin for protection in the setting of a recent NSTEMI would also be of value. If this is possible, I will recommend 81 mg daily. 3. CHF: overall preserved LV systolic function. She likely has some element of diastolic dysfunction that is difficult to assess in light of her AF. She was dehydrated upon admission and has received a lot of fluid. It would seem reasonable based on her CXR to consider re-initiating her oral furosemide and effect a slight negative fluid balance. MTDD
[2016-12-30] MEDS ORDERED: VANCOMYCIN INJ 1,350 MG in SODIUM CHLORIDE 0.9% 250ML 250 ML IV SCH (18:00)
[2016-12-30] MEDS: LEVOFLOXACIN 250MG / D5W IV SCH (20:48)
[2016-12-30] MEDS ORDERED: INSULIN GLARGINE SOLOSTAR 100 UNITS/ML 3 ML PEN SC SCH (21:00)
[2016-12-30] MEDS ORDERED: VANCOMYCIN TROUGH SCH (22:30)
[2016-12-31] VITALS (11 sets, daily range): BP systolic 131–155; BP diastolic 59–77; PULSE 43–93; TEMP 36.6–36.8; O2SAT 93–100; Ht 157.5 cm; Wt 92.5 kg
[2016-12-31] MEDS: IPRATROPIUM BROMIDE NEB SOLN 0.02% 2.5 ML VIAL INH SCH ×4 (02:22→19:48)
[2016-12-31] MEDS: LEVALBUTEROL 1.25MG/0.5ML NEB INH SCH ×4 (02:22→19:48)
[2016-12-31] MEDS: MoRPHine SULFATE 2 MG/ML CARP IV PRN (03:33)
[2016-12-31 06:19] LABS: HEMATOCRIT 26.1 % (37-47); MEAN CELL VOLUME 90.6 fL (80-100); MEAN CORPUSCULAR HEMOGLOBIN 28.1 pg (25-34); MEAN PLATELET VOLUME 8.7 fL (7.4-10.4); PLATELET COUNT 159 K/uL (130-400); RED BLOOD COUNT 2.88 M/uL (4.2-5.4); WHITE BLOOD COUNT 8.12 K/uL (4.8-10.8)
[2016-12-31] MEDS: PIPERACILL/TAZOBAC IV 4.5 GM in DEXTROSE 5% 100ML IV SCH ×3 (06:39→21:17)
[2016-12-31 06:44] LABS: ANISOCYTOSIS PRESENT; COMPLETE YES; EOS % 3.1 %; IG% 0.5 %; LYMPH % 7.1 %; LYMPH ABS # 0.58 K/uL (1.2-3.4); MONO % 7.3 %
[2016-12-31 06:55] LABS: ALB/GLOB RATIO 0.6 (0.9-2); BUN/CREATININE RATIO 18.2 (10-20); CALCIUM 8.3 mg/dl (8.5-10.1); CREATININE 0.88 mg/dl (0.60-1.20); MAGNESIUM 2.3 mg/dl (1.8-2.4); PHOSPHORUS 2.7 mg/dl (2.5-4.9); POTASSIUM 3.9 mmol/L (3.5-5.1)
[2016-12-31] MEDS: INSULIN ASPART 100 UNITS/ML 3 ML PEN SC SCH ×4 (07:00→21:24)
[2016-12-31] MEDS: ENOXAPARIN 100 MG/1ML SYR SQ SCH ×2 (09:44→21:21)
[2016-12-31] MEDS: LEVOTHYROXINE SODIUM IV SCH (09:44)
[2016-12-31] MEDS: NYSTATIN OINT 15 GM TUBE EXT SCH ×2 (09:44→21:18)
[2016-12-31] MEDS: HYDROmorphone INJ 1 MG/ML SYR IV PRN (09:52)
[2016-12-31] MEDS ORDERED: LEVOFLOXACIN 250 MG TAB PO ONE (10:30)
--- NOTE | 2016-12-31 10:36 | Pharmacy Progress Note ---
Glycemic: Assessment & Plan Date of Service Dec 31, 2016. Assessment & Plan Recent Pertinent Medications Outpatient Anti-diabetic Regimen: (at [facility]) - note: BSGs were in the 200s and 300s there * NovoLog per sliding scale * A1c = 5.3 % 09/20/16 The patient is currently receiving: * Basal insulin: Lantus 20 units BID on 12/28 (40 units total) Lantus 30 units x 1 on 12/29 Lantus 15 units x1 on 12/30 * Correctional Insulin: NovoLog Correction per scale AC + HS + 0200 Goal Range: Low 100 mg/dL - High 150 mg/dL Correction Factor: 30 mg/dL/unit * Prandial insulin: Per carb ratio of 1 unit per 11 grams CHO consumed Risk Factors for Insulin Resistance: * Infection: on Levaquin PO and Zosyn IV for pneumonia * Diet: type 2 diabetes diet Assessment & Plan ASSESSMENT: Initial: * Ms. Gloria is a 71 y/o female admitted for A.fib and pneumonia from [facility] * She is well known to the pharmacy glycemic service from previous admissions but had always been on 70/30 insulin - I'm not sure when this was d/c'd * I spoke with the nurse at [facility] to get an idea of the patient's BSGs prior to admission since she was just on the sliding scale there * The nurse reported that her BSGs were mostly in the 200s, with the mid-300s immediately prior to this admission * It would make sense for her to require some sort of basal insulin as an outpatient - will need to look into this further prior to making recommendations for discharge * BSGs have been trending down in the AM with a hypoglycemic event on 12/3012/31/16 * Fasting BSG today again below goal range, specifically for an elderly patient. * hold further basal insulin until BSGs rebound and then resume at conservative dose (5-10 units SQ daily) * NovoLog parameters were loosened yesterday, however Ms Gloria experienced a hypoglycemic event since then * remove carb ratio at this time and utilize correctional insulin alone - may need to resume in the future, but current PO intake is minimal PLAN FOR INPATIENT GLYCEMIC CONTROL: * Basal insulin: * hold at this time * re-evaluate daily * Bolus insulin * NovoLog AC/HS - Goal: 110-150mg/dL - CF: 30mg/dL/unit - CR: remove at this time DISCHARGE RECOMMENDATIONS: * Will most likely need basal on discharge * Plan will be determined once more info obtained on requirements here Thank you.
[2016-12-31] MEDS ORDERED: FUROSEMIDE 40 MG TAB PO ONE (10:45)
--- NOTE | 2016-12-31 11:04 | Progress Note ---
Subjective Date of Service: Dec 31, 2016. Subjective Pt evaluation today including: conversation w/ patient, physical exam, chart review, lab review, review of studies, review of inpatient medication list More awake today than yesterday. She does not want to go back to her old rehab facility. SHe does not report any chest pain, no sob. No abd pain. Problem List Medical Problems: (1) Atrial fibrillation Status: Acute (2) Bifascicular block Status: Acute (3) Cellulitis of both lower extremities Status: Acute (4) Cellulitis of foot, left Status: Acute (5) Cellulitis of left lower leg Status: Acute (6) CHF (congestive heart failure) Status: Acute (7) Constipation Status: Acute (8) Diabetic foot ulcer Status: Acute (9) Electrolyte abnormality Status: Acute (10) Hyperkalemia Status: Acute (11) Hypokalemia Status: Acute (12) Leukocytosis Status: Acute (13) PNA (pneumonia) Status: Acute (14) Sepsis Status: Acute (15) Sepsis Status: Acute (16) UTI (urinary tract infection) Status: Acute (17) UTI (urinary tract infection) Status: Acute Review of Systems All Other Systems: Reviewed and Negative Medications Dextrose (Dextrose 50% 50ML Syringe) 50 ml UD PRN IV; Start 12/27/16 at 21:45 ; Stop 01/26/17 at 21:44 Digoxin 125 mcg/ Syringe 10 ml @ 2 mls/min DAILY@16 IV Last administered on 12/30 17:30; Admin Dose 2 MLS/MIN; Start 12/28/16 at 16:00; Stop 01/27/17 at 15: 59 Diltiazem HCl 10 mg 10 mg Q4H PRN IV; Start 12/27/16 at 21:45; Stop 01/26/17 at 21:44 Enoxaparin Sodium (Lovenox Inj) 90 mg BID SQ Last administered on 12/31/16 09: 44; Admin Dose 90 MG; Start 12/30/16 at 21:00; Stop 01/29/17 at 20:59 Furosemide (Lasix Tab) 40 mg QAM PO; Start 01/01/17 at 09:00; Stop 01/31/17 at 08:59 Glucagon (Glucagon Inj) 1 mg UD PRN SQ; Start 12/27/16 at 21:45; Stop 01/26/17 at 21:44 Glucose (Glucose 40% Gel) UD PRN PO; Start 12/27/16 at 21:45; Stop 01/26/17 at 21:44 Glucose (Glucose Chew Tab) 1 tabs UD PRN PO; Start 12/27/16 at 21:45; Stop at 21:44 Hydromorphone HCl (Dilaudid Inj) 1 mg Q6H PRN IV Last administered on 09:52; Admin Dose 1 MG; Start 12/29/16 at 18:30; Stop 01/12/17 at 18:29 Insulin Aspart (novoLOG ASPART) SLIDING SCALE If C... ACHS SC Last administered on 12/29/16 16:15; Admin Dose 2 UNITS; Start 12/28/16 at 11:00; Stop 01/27/17 at 10:59 Ipratropium [place] (Atrovent 0.02% 0.5MG/2.5ML Neb) 0.5 mg Q2H PRN INH; Start 12/27/16 at 22:45; Stop 01/26/17 at 22:44 Ipratropium [place] (Atrovent 0.02% 0.5MG/2.5ML Neb) 0.5 mg Q6R INH Last administered on 12/31/16 07:04; Admin Dose 0.5 MG; Start 12/28/16 at 03:00; Stop 01/27/17 at 02:59 Levalbuterol (Xopenex 1.25MG/ 0.5ML Neb) 1.25 mg Q6R INH Last administered on 07:04; Admin Dose 1.25 MG; Start 12/28/16 at 03:00; Stop 01/27/17 at 02: 59 Levalbuterol 1.25 mg 1.25 mg Q2H PRN INH; Start 12/27/16 at 22:45; Stop at 22:44 Levofloxacin (Consult) 1 ea UD PRN N/A; Start 12/27/16 at 23:45; Stop 01/26/17 at 23:44 Levofloxacin (Levaquin Tab) 500 mg DAILY@2100 PO; Start 12/31/16 at 21:00; Stop 01/02/17 at 21:59 Levothyroxine Sodium/Syringe (Synthroid Inj/ Syringe) 6.25 ml @ 2 mls/min DAILY @09 IV Last administered on 12/31/16 09:44; Admin Dose 2 MLS/MIN; Start at 09:00; Stop 01/27/17 at 08:59 Lorazepam (Ativan Inj) 0.5 mg Q8 PRN IV Last administered on 12/30/16 01:18; Admin Dose 0.5 MG; Start 12/28/16 at 09:45; Stop 01/27/17 at 09:44 Miscellaneous Information (Consult Glycemic Management Pharmacy) 1 UD N/A; Start 12/28/16 at 09:56; Stop 01/27/17 at 09:55 Morphine Sulfate (MoRPHine SULFATE INJ) 2 mg Q2H PRN IV Last administered on 03:33; Admin Dose 2 MG; Start 12/27/16 at 21:45; Stop 01/10/17 at 21:44 Morphine Sulfate 4 mg 4 mg Q2H PRN IV Last administered on 12/30/16 01:17; Admin Dose 4 MG; Start 12/27/16 at 21:45; Stop 01/10/17 at 21:44 Nystatin (Mycostatin Oint) 1 appln BID EXT Last administered on 12/31/16 09:44 ; Admin Dose 1 APPLN; Start 12/28/16 at 21:00; Stop 01/27/17 at 20:59 Ondansetron HCl (Zofran Inj) 4 mg Q6H PRN IV; Start 12/27/16 at 21:45; Stop at 21:44 Pantoprazole Sodium/Syringe (Protonix Inj/ Syringe) 10 ml @ 5 mls/min DAILY@11 IV Last administered on 12/30/16 13:24; Admin Dose 5 MLS/MIN; Start 12/28/16 at 11:00; Stop 01/27/17 at 10:59 Piperacillin Sod/ Tazobactam Sod (Consult) 1 ea UD PRN N/A; Start 12/27/16 at 23:00; Stop 01/26/17 at 22:59 Piperacillin Sod/ Tazobactam Sod/ Dextrose (Zosyn Iv/D5 100ml) 120 ml @ 30 mls/ hr Q8H IV Last administered on 12/31/16 06:39; Admin Dose 30 MLS/HR; Start at 06:00; Stop 01/04/17 at 05:59 Sodium Chloride ([place] Nasal [place]) 1 sprays PRN PRN NA Last administered on 16:46; Admin Dose 1 SPRAYS; Start 12/28/16 at 11:45; Stop 01/27/17 at 11 :44 Objective Vital Signs Date Time Temp Pulse Resp B/P Pulse Ox O2 Delivery O2 Flow Rate FiO2 12/31/16 07:44 36.7 69 20 155/77 100 12/31/16 07:04 68 16 98 Nasal Cannula 2.0 12/31/16 04:00 36.6 74 28 131/59 95 Nasal Cannula 2.0 12/31/16 04:00 95 Nasal Cannula 2.0 12/31/16 02:20 78 16 97 Nasal Cannula 2.0 12/31/16 00:11 36.8 68 134/72 98 12/31/16 00:00 98 Nasal Cannula 2.0 12/30/16 20:00 95 Nasal Cannula 2.0 12/30/16 19:37 74 14 97 Nasal Cannula 2.0 12/30/16 19:25 36.9 82 18 93/52 95 Nasal Cannula 2.0 12/30/16 17:30 89 12/30/16 16:00 Nasal Cannula 2.0 12/30/16 15:30 37.4 75 20 130/72 100 Nasal Cannula 2.0 12/30/16 14:46 75 14 98 Nasal Cannula 2.0 12/30/16 12:00 Nasal Cannula 2.0 12/30/16 11:48 37.2 83 24 149/65 93 Nasal Cannula 2.0 Physical Exam Comments: nad, aox3 anicteric irreg irreg, no murmurs appreciated decreased BS, no wheezing abd soft nt/nd +BS L BKA, no RLE edema Laboratory Results Last 24 Hours Test 12/30/16 11:20 12/30/16 11:39 12/30/16 12:14 12/30/16 12:59 Random Vancomycin Level 21.5 mcg/ml Bedside Glucose 64 mg/dl 59 mg/dl Heparin Anti-Xa Act, Low Molec Wt 0.61 IU/ML Test 12/30/16 16:20 12/30/16 16:23 12/30/16 20:36 12/31/16 03:20 Bedside Glucose 69 mg/dl 132 mg/dl Iron Level 21 mcg/dl Total Iron Binding Capacity 149 mcg/dl Transferrin 120 mg/dl Transferrin % Saturation 13 % Ferritin 652.8 ng/ml Stool Occult Blood NEGATIVE Test 12/31/16 06:00 12/31/16 06:35 White Blood Count 8.12 K/uL Red Blood Count 2.88 M/uL Hemoglobin 8.1 g/dL Hematocrit 26.1 % Mean Corpuscular Volume 90.6 fL Mean Corpuscular Hemoglobin 28.1 pg Mean Corpuscular Hemoglobin Concent 31.0 g/dl Platelet Count 159 K/uL Mean Platelet Volume 8.7 fL Neutrophils (%) (Auto) 82.0 % Lymphocytes (%) (Auto) 7.1 % Monocytes (%) (Auto) 7.3 % Eosinophils (%) (Auto) 3.1 % Basophils (%) (Auto) 0.0 % Neutrophils # (Auto) 6.66 K/uL Lymphocytes # (Auto) 0.58 K/uL Monocytes # (Auto) 0.59 K/uL Eosinophils # (Auto) 0.25 K/uL Basophils # (Auto) 0.00 K/uL RDW Standard Deviation 64.5 fL RDW Coefficient of Variation 19.4 % Immature Granulocyte % (Auto) 0.5 % Immature Granulocyte # (Auto) 0.04 K/uL Anisocytosis PRESENT Sodium Level 145 mmol/L Potassium Level 3.9 mmol/L Chloride Level 110 mmol/L Carbon Dioxide Level 31 mmol/L Anion Gap 4.0 mmol/L Blood Urea Nitrogen 16 mg/dl Creatinine 0.88 mg/dl Est Creatinine Clear Calc Drug Dose 61.2 ml/min Estimated GFR () 76.1 Estimated GFR (Non- 65.6 BUN/Creatinine Ratio 18.2 Random Glucose 90 mg/dl Calcium Level 8.3 mg/dl Phosphorus Level 2.7 mg/dl Magnesium Level 2.3 mg/dl Total Bilirubin 1.0 mg/dl Aspartate Amino Transf (AST/SGOT) 7 U/L Alanine Aminotransferase (ALT/SGPT) 8 U/L Alkaline Phosphatase 71 U/L Total Protein 5.9 gm/dl Albumin 2.2 gm/dl Globulin 3.7 gm/dl Albumin/Globulin Ratio 0.6 Digoxin Level 1.1 ng/ml Bedside Glucose 83 mg/dl IMPRESSION: 1. Motion and streak artifact degraded examination. 2. There are moderate pleural effusions with bibasilar consolidation. This could represent atelectasis and/or pneumonia and clinical correlation will be required. Radiographic follow-up to resolution is recommended. 2. Patchy airspace opacities are seen within the upper lobes bilaterally. This could represent multifocal pneumonia and/or pulmonary edema. Clinical correlation will be again be required. 3. Cardiomegaly. 4. The appearance of the liver suggests cirrhosis. The spleen is enlarged. 5. Mildly enlarged mediastinal lymph nodes are nonspecific and likely on a reactive basis. 6. Additional findings as above. Assessment and Plan 1. Elevated troponin - conservative management at this time - possibly add baby dose aspirin 2. Pulmonary edema with pleural effusions - afebrile, no leukocytosis, CT findings as above - resume lasix 40 mg po today and re-assess tomorrow if patient will require a higher dose 3. ?Pneumonia vs pulmonary edema - CT chest as above - will cont zosyn and levaquin for now - can probably stop zosyn after a few days and continue treatment with just levaquin to complete a 10 day course 4. Afib - on Xarelto at home - switched over to lovenox, will give 90mg BID for therapeutic dose - dig IV to switch to oral - dig level acceptable - cont diltiazem 5. T2DM - hypoglycemic episode this afternoon - now eating again - glucose readings still on the lower side - will cont off glargine for now and monitor glucoses 6. AINSLEY - resolved - cont lasix, check AM BMP - was also on spironolactone at home, will hold off for now 7. diarrhea/loose stools - neg c diff Continued [facility] stay due to: multiple IV medications needed Discharge planning: [facility] facility
[2016-12-31] MEDS ORDERED: FERROUS SULFATE 325 MG TAB PO ONE (11:05)
[2016-12-31] MEDS ORDERED: VANCOMYCIN TROUGH SCH (11:30)
[2016-12-31] MEDS: PANTOprazole INJ 40 MG in SYRINGE 0 ML IV SCH (12:31)
[2016-12-31] MEDS: DIGOXIN IV 125 MCG in SYRINGE 9.5 ML IV SCH (17:54)
[2016-12-31] MEDS: LEVOFLOXACIN 500 MG TAB PO SCH (21:21)
[2017-01-01 00:58] VITALS: BP 145/82; PULSE 69; TEMP 36.6; O2SAT 100
[2017-01-01 02:11] VITALS: PULSE 76; O2SAT 99
[2017-01-01] MEDS: LEVALBUTEROL 1.25MG/0.5ML NEB INH SCH ×2 (02:11→07:17)
[2017-01-01] MEDS: IPRATROPIUM BROMIDE NEB SOLN 0.02% 2.5 ML VIAL INH SCH ×2 (02:11→07:17)
[2017-01-01] MEDS: MoRPHine SULFATE 2 MG/ML CARP IV PRN ×2 (02:38→06:42)
[2017-01-01] MEDS: HYDROmorphone INJ 1 MG/ML SYR IV PRN (03:34)
[2017-01-01] MEDS: PIPERACILL/TAZOBAC IV 4.5 GM in DEXTROSE 5% 100ML IV SCH ×3 (06:09→21:42)
[2017-01-01 07:10] LABS: BASO % 0.2 %; BASO ABS # 0.01 K/uL (0-0.2); HEMATOCRIT 25.8 % (37-47); IG% 0.5 %; LYMPH % 8.1 %; LYMPH ABS # 0.51 K/uL (1.2-3.4); MEAN CELL VOLUME 89.6 fL (80-100); MEAN CORPUSCULAR HEMOGLOBIN 28.1 pg (25-34); MEAN CORPUSCULAR HGB CONC 31.4 g/dl (32-36); MEAN PLATELET VOLUME 8.9 fL (7.4-10.4); NEUT % 81.2 %; PLATELET COUNT 147 K/uL (130-400); RED BLOOD COUNT 2.88 M/uL (4.2-5.4); WHITE BLOOD COUNT 6.32 K/uL (4.8-10.8)
[2017-01-01 07:16] VITALS: BP 131/71; PULSE 63; TEMP 36.8; O2SAT 100
[2017-01-01 07:17] VITALS: PULSE 79; O2SAT 99
[2017-01-01 07:36] LABS: COMPLETE YES
[2017-01-01 07:48] LABS: BUN/CREATININE RATIO 16.1 (10-20); CALCIUM 8.3 mg/dl (8.5-10.1); CREATININE 0.77 mg/dl (0.60-1.20); MAGNESIUM 1.9 mg/dl (1.8-2.4); PHOSPHORUS 2.7 mg/dl (2.5-4.9); POTASSIUM 3.4 mmol/L (3.5-5.1)
[2017-01-01] MEDS: LEVOTHYROXINE SODIUM IV SCH (07:50)
[2017-01-01] MEDS: NYSTATIN OINT 15 GM TUBE EXT SCH ×2 (07:52→21:42)
[2017-01-01] MEDS: ENOXAPARIN 100 MG/1ML SYR SQ SCH ×2 (07:52→22:05)
[2017-01-01] MEDS ORDERED: POTASSIUM CHLORIDE 20 MEQ TABCR PO ONE (08:00)
[2017-01-01] MEDS ORDERED: TIOTROPIUM BROMIDE 5 PUFF/90 MCG INH INH SCH (08:00)
[2017-01-01] MEDS ORDERED: FUROSEMIDE 20 MG TAB PO SCH (08:00)
[2017-01-01] MEDS ORDERED: FERROUS SULFATE 325 MG TAB PO SCH (08:00)
--- NOTE | 2017-01-01 08:36 | Progress Note ---
Subjective Date of Service: Jan 01, 2017. Subjective Pt evaluation today including: conversation w/ patient, physical exam, lab review, review of studies, review of inpatient medication list Patient c/o not liking the current rehab/nh facility she is at and does not want to go back there. She does not have any chest pain, no sob. Problem List Medical Problems: (1) Atrial fibrillation Status: Acute (2) Bifascicular block Status: Acute (3) Cellulitis of both lower extremities Status: Acute (4) Cellulitis of foot, left Status: Acute (5) Cellulitis of left lower leg Status: Acute (6) CHF (congestive heart failure) Status: Acute (7) Constipation Status: Acute (8) Diabetic foot ulcer Status: Acute (9) Electrolyte abnormality Status: Acute (10) Hyperkalemia Status: Acute (11) Hypokalemia Status: Acute (12) Leukocytosis Status: Acute (13) PNA (pneumonia) Status: Acute (14) Sepsis Status: Acute (15) Sepsis Status: Acute (16) UTI (urinary tract infection) Status: Acute (17) UTI (urinary tract infection) Status: Acute Review of Systems All Other Systems: Reviewed and Negative Medications Acetaminophen/ Hydrocodone Bitart ([place] 5/325 Tab) 1 tab Q6H PRN PO Last administered on 01/01/17 16:07; Admin Dose 1 TAB; Start 01/01/17 at 08:45; Stop 01/15/17 at 08:44 Dextrose (Dextrose 50% 50ML Syringe) 50 ml UD PRN IV; Start 12/27/16 at 21:45; Stop 01/26/17 at 21:44 Digoxin (Lanoxin Tab) 0.25 mg DAILY@16 PO Last administered on 01/01/17 16:10; Admin Dose 0.25 MG; Start 01/01/17 at 16:00; Stop 01/31/17 at 15:59 Diltiazem HCl (Cardizem Inj) 10 mg Q4H PRN IV; Start 12/27/16 at 21:45; Stop at 21:44 Duloxetine HCl (Cymbalta Cap) 20 mg QAM PO; Start 01/02/17 at 08:00; Stop at 07:59 Enoxaparin Sodium (Lovenox Inj) 90 mg BID SQ Last administered on 01/01/17 07: 52; Admin Dose 90 MG; Start 12/30/16 at 21:00; Stop 01/29/17 at 20:59 Ferrous Sulfate (Feosol Tab) 325 mg QAM PO Last administered on 01/01/17 07:51 ; Admin Dose 325 MG; Start 01/01/17 at 08:00; Stop 01/31/17 at 08:59 Furosemide (Lasix Tab) 20 mg QAM PO Last administered on 01/01/17 07:51; Admin Dose 20 MG; Start 01/01/17 at 08:00; Stop 01/31/17 at 08:59 Gabapentin (Neurontin Tab) 300 mg HS PO; Start 01/01/17 at 21:00; Stop 01/31/17 at 20:59 Glucagon (Glucagon Inj) 1 mg UD PRN SQ; Start 12/27/16 at 21:45; Stop 01/26/17 at 21:44 Glucose (Glucose 40% Gel) UD PRN PO; Start 12/27/16 at 21:45; Stop 01/26/17 at 21:44 Glucose (Glucose Chew Tab) 1 tabs UD PRN PO; Start 12/27/16 at 21:45; Stop at 21:44 Insulin Aspart (novoLOG ASPART) SLIDING SCALE If C... ACHS SC Last administered on 01/01/17 13:02; Admin Dose 2 UNITS; Start 12/28/16 at 11:00; Stop 01/27/17 at 10:59 Ipratropium [place] (Atrovent 0.02% 0.5MG/2.5ML Neb) 0.5 mg Q2H PRN INH; Start 12/27/16 at 22:45; Stop 01/26/17 at 22:44 Levalbuterol 1.25 mg 1.25 mg Q2H PRN INH; Start 12/27/16 at 22:45; Stop at 22:44 Levofloxacin (Consult) 1 ea UD PRN N/A; Start 12/27/16 at 23:45; Stop 01/26/17 at 23:44 Levofloxacin (Levaquin Tab) 500 mg DAILY@2100 PO Last administered on 12/31/16 21:21; Admin Dose 500 MG; Start 12/31/16 at 21:00; Stop 01/02/17 at 21:59 Levothyroxine Sodium/ Levothyroxine Sodium (Synthroid Tab/ Synthroid Tab) 250 mcg DAILYBB PO; Start 01/02/17 at 06:30; Stop 02/01/17 at 06:29 Lorazepam (Ativan Inj) 0.5 mg Q8 PRN IV Last administered on 12/30/16 01:18; Admin Dose 0.5 MG; Start 12/28/16 at 09:45; Stop 01/27/17 at 09:44 Miscellaneous Information (Consult Glycemic Management Pharmacy) 1 ea UD N/A; Start 12/28/16 at 09:56; Stop 01/27/17 at 09:55 Nystatin (Mycostatin Oint) 1 appln BID EXT Last administered on 01/01/17 07:52 ; Admin Dose 1 APPLN; Start 12/28/16 at 21:00; Stop 01/27/17 at 20:59 Ondansetron HCl (Zofran Inj) 4 mg Q6H PRN IV; Start 12/27/16 at 21:45; Stop at 21:44 Pantoprazole Sodium (Protonix Tab) 40 mg QAM PO; Start 01/02/17 at 08:00; Stop 02/01/17 at 07:59 Piperacillin Sod/ Tazobactam Sod (Consult) 1 [facility] PRN N/A; Start 12/27/16 at 23:00; Stop 01/26/17 at 22:59 Piperacillin Sod/ Tazobactam Sod/ Dextrose (Zosyn Iv/D5 100ml) 120 ml @ 30 mls/ hr Q8H IV Last administered on 01/01/17 14:28; Admin Dose 30 MLS/HR; Start at 06:00; Stop 01/04/17 at 05:59 Salmeterol Xinafoate/ Fluticasone (Advair Diskus 250/50 Inh) 1 puff BID INH Last administered on 01/01/17 09:54; Admin Dose 1 PUFF; Start 01/01/17 at 08:00 ; Stop 01/31/17 at 07:59 Sodium Chloride ([place] Nasal [place]) 1 sprays PRN PRN NA Last administered on 16:46; Admin Dose 1 SPRAYS; Start 12/28/16 at 11:45; Stop 01/27/17 at 11 :44 Spironolactone (Aldactone Tab) 25 mg QAM PO; Start 01/02/17 at 08:00; Stop 02/01 at 07:59 Tiotropium [place] (Spiriva Handihaler Inhaler) 30 puff DAILY INH Last administered on 01/01/17 09:54; Admin Dose 1 PUFF; Start 01/01/17 at 08:00; Stop 01/31/17 at 07:59 Tramadol HCl (Ultram Tab) 50 mg Q8H PRN PO Last administered on 01/01/17 13:05 ; Admin Dose 50 MG; Start 01/01/17 at 08:45; Stop 01/31/17 at 08:44 Objective Vital Signs Date Time Temp Pulse Resp B/P Pulse Ox O2 Delivery O2 Flow Rate FiO2 01/01/17 07:17 79 16 99 Nasal Cannula 3.0 01/01/17 07:16 36.8 63 18 131/71 100 Nasal Cannula 3.0 01/01/17 02:11 76 16 99 Nasal Cannula 3.0 01/01/17 00:58 36.6 69 18 145/82 100 2.0 01/01/17 00:00 Nasal Cannula 3.0 12/31/16 20:00 Nasal Cannula 3.0 12/31/16 19:48 78 16 98 Nasal Cannula 3.0 12/31/16 19:30 36.8 60 18 154/69 98 Nasal Cannula 2.0 12/31/16 17:54 78 12/31/16 16:00 Nasal Cannula 2.0 12/31/16 15:50 93 16 98 Nasal Cannula 2.0 12/31/16 15:32 36.8 43 20 133/74 96 Nasal Cannula 2.0 12/31/16 12:00 Nasal Cannula 2.0 12/31/16 11:31 36.8 76 18 144/72 93 Room Air Physical Exam Comments: nad awake, alert, and answering questions appropriately irreg irreg, no murmurs appreciated ctab no w/r/r abd soft nt/nd +BS no RLE edema, LBKA Laboratory Results Last 24 Hours Test 12/31/16 11:04 12/31/16 16:17 12/31/16 20:37 01/01/17 06:35 Bedside Glucose 137 mg/dl 152 mg/dl 171 mg/dl White Blood Count 6.32 K/uL Red Blood Count 2.88 M/uL Hemoglobin 8.1 g/dL Hematocrit 25.8 % Mean Corpuscular Volume 89.6 fL Mean Corpuscular Hemoglobin 28.1 pg Mean Corpuscular Hemoglobin Concent 31.4 g/dl Platelet Count 147 K/uL Mean Platelet Volume 8.9 fL Neutrophils (%) (Auto) 81.2 % Lymphocytes (%) (Auto) 8.1 % Monocytes (%) (Auto) 7.0 % Eosinophils (%) (Auto) 3.0 % Basophils (%) (Auto) 0.2 % Neutrophils # (Auto) 5.14 K/uL Lymphocytes # (Auto) 0.51 K/uL Monocytes # (Auto) 0.44 K/uL Eosinophils # (Auto) 0.19 K/uL Basophils # (Auto) 0.01 K/uL RDW Standard Deviation 63.6 fL RDW Coefficient of Variation 19.3 % Immature Granulocyte % (Auto) 0.5 % Immature Granulocyte # (Auto) 0.03 K/uL Red Blood Cell Morphology Unremarkable Sodium Level 144 mmol/L Potassium Level 3.4 mmol/L Chloride Level 108 mmol/L Carbon Dioxide Level 30 mmol/L Anion Gap 6.0 mmol/L Blood Urea Nitrogen 12 mg/dl Creatinine 0.77 mg/dl Est Creatinine Clear Calc Drug Dose 69.9 ml/min Estimated GFR () 89.4 Estimated GFR (Non- 77.1 BUN/Creatinine Ratio 16.1 Random Glucose 114 mg/dl Calcium Level 8.3 mg/dl Phosphorus Level 2.7 mg/dl Magnesium Level 1.9 mg/dl Test 01/01/17 07:30 Bedside Glucose 118 mg/dl Assessment and Plan 1. Elevated troponin - conservative management at this time - possibly add low-dose aspirin 2. Pulmonary edema with pleural effusions - afebrile, no leukocytosis - resume lasix 40 mg po today and re-assess tomorrow if patient will require a higher dose 3. ?Pneumonia vs pulmonary edema - will cont zosyn and levaquin for now - can probably stop zosyn after a few days and continue treatment with just levaquin to complete a 10 day course, 01/15 4. Afib - on Xarelto at home - switched over to lovenox, will give 90mg BID for therapeutic dose - dig IV to switch to oral - dig level acceptable - cont diltiazem 5. T2DM - hypoglycemic episode this afternoon - now eating again - glucose readings still on the lower side - will cont off glargine for now and monitor glucoses 6. AINSLEY - resolved - cont lasix - resume spironolactone 7. diarrhea/loose stools - neg c diff Continued [facility] stay due to: multiple IV medications needed [facility]charge planning: [facility] facility
[2017-01-01] MEDS: INSULIN ASPART 100 UNITS/ML 3 ML PEN SC SCH ×3 (08:49→21:00)
[2017-01-01] MEDS ORDERED: FUROSEMIDE 40 MG TAB PO SCH (09:00)
[2017-01-01] MEDS: FLUTICASONE/SALMETEROL 250/50 (ADVAIR) 14 PUFF/1 INHALER INH SCH ×2 (09:54→21:44)
[2017-01-01] MEDS: HYDROCODONE/ACETAMOPHEN 5/325MG TAB PO PRN ×2 (09:55→16:07)
--- NOTE | 2017-01-01 10:44 | Orthopedic Progress Note ---
Orthopedic Progress Note Date of Service Jan 01, 2017. Subjective Post OP Day: 2 weeks post op Reports: feeling well, pain controlled w PO medications, Denies: SOB, calf pain , chest pain, complaints, light headedness, nausea / vomiting Additional Notes: States has terrible pain in left leg. Objective calves soft nontender, N/V intact, capillary refill less than 2 sec., incision C /D/I, A&O x3 Sutures retained, no active drainage, tolerates movement of knee, nontender with palpation. minimal erythema and edema left lower extremity Date Time Temp Pulse Resp B/P Pulse Ox O2 Delivery O2 Flow Rate FiO2 01/01/17 07:17 79 16 99 Nasal Cannula 3.0 01/01/17 07:16 36.8 63 18 131/71 100 Nasal Cannula 3.0 01/01/17 02:11 76 16 99 Nasal Cannula 3.0 01/01/17 00:58 36.6 69 18 145/82 100 2.0 01/01/17 00:00 Nasal Cannula 3.0 12/31/16 20:00 Nasal Cannula 3.0 12/31/16 19:48 78 16 98 Nasal Cannula 3.0 12/31/16 19:30 36.8 60 18 154/69 98 Nasal Cannula 2.0 12/31/16 17:54 78 12/31/16 16:00 Nasal Cannula 2.0 12/31/16 15:50 93 16 98 Nasal Cannula 2.0 12/31/16 15:32 36.8 43 20 133/74 96 Nasal Cannula 2.0 12/31/16 12:00 Nasal Cannula 2.0 12/31/16 11:31 36.8 76 18 144/72 93 Room Air Laboratory Results 24 Hours: Test 01/01/17 06:35 White Blood Count 6.32 K/uL Red Blood Count 2.88 M/uL Hemoglobin 8.1 g/dL Hematocrit 25.8 % Mean Corpuscular Volume 89.6 fL Mean Corpuscular Hemoglobin 28.1 pg Mean Corpuscular Hemoglobin Concent 31.4 g/dl Platelet Count 147 K/uL Mean Platelet Volume 8.9 fL Neutrophils (%) (Auto) 81.2 % Lymphocytes (%) (Auto) 8.1 % Monocytes (%) (Auto) 7.0 % Eosinophils (%) (Auto) 3.0 % Basophils (%) (Auto) 0.2 % Neutrophils # (Auto) 5.14 K/uL Lymphocytes # (Auto) 0.51 K/uL Monocytes # (Auto) 0.44 K/uL Eosinophils # (Auto) 0.19 K/uL Basophils # (Auto) 0.01 K/uL Assessment & Plan Assessment: S/P Left BKA with Dr. 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 Will move her post op appointment with Dr. Unger from 01/03 to 01/07 and re- eval next week for possible suture removal. Consult placed for orthotics Questions answered, call [phone] with further questions.
[2017-01-01] MEDS: PANTOprazole INJ 40 MG in SYRINGE 0 ML IV SCH (11:14)
--- NOTE | 2017-01-01 11:50 | CARDIOLOGY PROGRESS NOTE ---
DATE: 01/01/2017 HISTORY OF PRESENT ILLNESS: This morning, Ms. Gloria complains primarily of leg pain, left worse than the right, but pain in both legs. She states that she has little appetite and did manage to eat some breakfast and she states that she has no other significant breathing difficulty currently and she does feel somewhat weak, however and is frustrated by being in the hospital. PHYSICAL EXAMINATION: GENERAL: She was more alert today. She answered all questions appropriately and was able to verbalize much better than on prior examination. VITAL SIGNS: Include blood pressure 131/71 with a pulse of 63. LUNGS: Auscultation of both lung apices revealed them to be clear with occasional upper airway congestion and coughing. CARDIAC: Revealed her to be in an irregular rhythm with a holosystolic murmur that varied in intensity. LABORATORY STUDIES: Obtained today include sodium 144, potassium of 3.4, creatinine was 0.7, BUN was 12. White cell count was 6.3, hemoglobin was 8.1, and platelet count was 147. ASSESSMENT AND PLAN: 1. Non-ST elevation myocardial infarction: Once again, this may have been demand ischemia and has been treated conservatively. She can be restarted on Xarelto at the discretion of the primary service. The addition of an 81 mg daily aspirin for a period of time would also seem reasonable intervention. 2. Pulmonary vascular congestion. Overall, left ventricular function appears to be preserved, but I would agree with an element of volume overload. She had her oral Lasix reintroduced yesterday but did not affect a significant diuresis this could be switched to twice daily or more aggressive regimen in order to elucidate negative fluid loss. 3. Atrial fibrillation, good rate control currently, a digoxin and diltiazem is scheduled to be added, which was effective on an outpatient basis. Once again, Xarelto can be reinitiated at the discretion of the primary service. 5. Mitral regurgitation, mild.
[2017-01-01] MEDS: TRAMADOL HCL 50 MG TAB PO PRN ×2 (13:05→21:44)
--- NOTE | 2017-01-01 14:28 | Pharmacy Progress Note ---
Glycemic Control: Progress Nt Date of Service Jan 01, 2017. Scope Glycemic Pharmacist consulted by Dr Faustin on 12/28/16 for glycemic control and to write orders per [facility] inpatient glycemic control protocol. Objective Accuchecks BSG (last 24hrs): Test 12/31/16 16:17 12/31/16 20:37 01/01/17 06:35 01/01/17 07:30 Bedside Glucose 152 mg/dl (70-90) 171 mg/dl (70-90) 118 mg/dl (70-90) Random Glucose 114 mg/dl (70-99) Test 01/01/17 11:16 Bedside Glucose 164 mg/dl (70-90) Laboratory Data (last 24hrs) Test 01/01/17 06:35 Anion Gap 6.0 mmol/L BUN/Creatinine Ratio 16.1 Blood Urea Nitrogen 12 mg/dl Creatinine 0.77 mg/dl Potassium Level 3.4 mmol/L Sodium Level 144 mmol/L White Blood Count 6.32 K/uL Red Blood Count 2.88 M/uL Hemoglobin 8.1 g/dL Hematocrit 25.8 % Mean Corpuscular Volume 89.6 fL Mean Corpuscular Hemoglobin 28.1 pg Mean Corpuscular Hemoglobin Concent 31.4 g/dl Platelet Count 147 K/uL Mean Platelet Volume 8.9 fL Neutrophils (%) (Auto) 81.2 % Lymphocytes (%) (Auto) 8.1 % Monocytes (%) (Auto) 7.0 % Eosinophils (%) (Auto) 3.0 % Basophils (%) (Auto) 0.2 % Neutrophils # (Auto) 5.14 K/uL Lymphocytes # (Auto) 0.51 K/uL Monocytes # (Auto) 0.44 K/uL Eosinophils # (Auto) 0.19 K/uL Basophils # (Auto) 0.01 K/uL Recent Pertinent Medications Outpatient Anti-diabetic Regimen: (at [facility]) - note: BSGs were in the 200s and 300s there * NovoLog per sliding scale * A1c = 5.3 % 09/20/16 The patient is currently receiving: * Basal insulin: Lantus -- units every -- hours; currently on hold, last dose given 12/30 PM (15 units) * Correctional Insulin: Novolog Correction per scale ACHS Goal Range: Low 110 mg/dL - High 150 mg/dL Correction Factor: 30 mg/dL/unit * Prandial insulin: Per carb ratio of 1 unit per 15 grams CHO consumed * Oral Agents: none currently Risk Factors for Insulin Resistance: * Steroids: n/a * Infection: possible PNX; receiving Zosyn + Levofloxacin * Pressors: n/a * IVF: n/a * Recent Surgery: n/a * Diet: ordered T2DM diet; erratic eating habits * Mechanical Ventilation: n/a Assessment & Plan 12/30/16 * Ms. Gloria is a 71 y/o female admitted for A.fib and pneumonia from [facility] * She is well known to the pharmacy glycemic service from previous admissions but had always been on 70/30 insulin - I'm not sure when this was d/c'd * I spoke with the nurse at [facility] to get an idea of the patient's BSGs prior to admission since she was just on the sliding scale there * The nurse reported that her BSGs were mostly in the 200s, with the mid-300s immediately prior to this admission * It would make sense for her to require some sort of basal insulin as an outpatient - will need to look into this further prior to making recommendations for discharge * BSGs have been trending down in the AM with a hypoglycemic event on 12/3012/31/16 * Fasting BSG today again below goal range, specifically for an elderly patient. * hold further basal insulin until BSGs rebound and then resume at conservative dose (5-10 units SQ daily) * NovoLog parameters were loosened yesterday, however Ms Gloria experienced a hypoglycemic event since then * remove carb ratio at this time and utilize correctional insulin alone - may need to resume in the future, but current PO intake is minimal 01/01/17 * No hypoglycemic events noted in the last 24 hours * Fasting BSG 118 this AM with no basal insulin on board - will wait another 24 hours before restarting basal insulin. If fasting BSG trending upwards tomorrow will consider restarting Lantus at reduced dose * Patient's eating habits appear to be erratic based upon carb consumption with meals. She has consumed very little over the last 3 days - perhaps this is why no basal insulin is required at this time and also why BSGs now are less than those reported by [facility]. * The new CF and CR have only been used once since being adjusted yesterday - and they did perform well at that time. Will continue the same. PLAN FOR INPATIENT GLYCEMIC CONTROL: * Continue to hold Lantus - reevaluate need based upon fasting AM BSGs * Continuing correction factor of 30 mg/dl/unit * Continuing carb ratio of 1 unit per 15 grams CHO consumed * Continuing goal range of Low 110 mg/dL - High 150 mg/dL * Please note that the plan above was derived based on current level of insulin resistance and hospital stress. These recommendations are appropriate for inpatient admission only. Plan of care upon discharge will need to be reassessed to avoid potential outpatient hypo/hyperglycemia. Thank you.
[2017-01-01 15:32] VITALS: BP 130/65; PULSE 64; TEMP 36.6; O2SAT 99
[2017-01-01] MEDS: DIGOXIN 0.25 MG TAB PO SCH (16:10)
[2017-01-01] MEDS: LEVOFLOXACIN 500 MG TAB PO SCH (21:43)
[2017-01-01] MEDS: GABAPENTIN 600 MG TAB PO SCH (21:43)
[2017-01-01 23:25] VITALS: BP 132/78; PULSE 57; TEMP 36.5; O2SAT 100
[2017-01-02] MEDS: PIPERACILL/TAZOBAC IV 4.5 GM in DEXTROSE 5% 100ML IV SCH ×3 (05:51→21:56)
[2017-01-02] MEDS: LEVOTHYROXINE SODIUM PO SCH ×2 (05:52)
[2017-01-02 06:27] LABS: HEMATOCRIT 26.4 % (37-47); MEAN CELL VOLUME 89.8 fL (80-100); MEAN CORPUSCULAR HEMOGLOBIN 28.2 pg (25-34); MEAN CORPUSCULAR HGB CONC 31.4 g/dl (32-36); MEAN PLATELET VOLUME 9.2 fL (7.4-10.4); PLATELET COUNT 154 K/uL (130-400); RED BLOOD COUNT 2.94 M/uL (4.2-5.4); WHITE BLOOD COUNT 5.95 K/uL (4.8-10.8)
[2017-01-02] MEDS ORDERED: LEVOTHYROXINE 100 MCG TAB PO SCH (06:30)
[2017-01-02 06:40] LABS: BUN/CREATININE RATIO 12.2 (10-20); CALCIUM 8.4 mg/dl (8.5-10.1); CREATININE 0.77 mg/dl (0.60-1.20); MAGNESIUM 1.7 mg/dl (1.8-2.4); POTASSIUM 3.6 mmol/L (3.5-5.1)
[2017-01-02 07:26] VITALS: BP 132/68; PULSE 63; TEMP 36.5; O2SAT 100
[2017-01-02] MEDS ORDERED: MAGNESIUM SULFATE 1GM / D5W 1 GM in PREMIXED IN D5W 100 ML IV SCH (07:30)
[2017-01-02] MEDS: FLUTICASONE/SALMETEROL 250/50 (ADVAIR) 14 PUFF/1 INHALER INH SCH ×2 (07:50→20:22)
[2017-01-02] MEDS: NYSTATIN OINT 15 GM TUBE EXT SCH ×2 (07:51→20:22)
[2017-01-02] MEDS: SPIRONOLACTONE 25 MG TAB PO SCH (07:51)
[2017-01-02] MEDS: PANTOprazole SOD 40 MG TAB PO SCH (07:51)
[2017-01-02] MEDS: DULOXETINE HCL 20 MG CAP PO SCH (07:51)
[2017-01-02] MEDS ORDERED: LEVOTHYROXINE 50 MCG TAB PO SCH (08:00)
--- NOTE | 2017-01-02 08:22 | Discharge Summary ---
Discharge Summary Date of Service Jan 02, 2017. Discharge Summary Admission Date: Dec 27, 2016 at 21:55 Discharge Date: Jan 02, 2017 Discharge Disposition: alf facility Principal Diagnosis: Pneumonia Immunizations: Have You Had Influenza Vaccine: Unknown Influenza Vaccine Date: Jun 23, 2013 History of Tetanus Vaccine?: Unknown History of Pneumococcal: Unknown Pneumococcal Date: Jun 23, 2011 History of Hepatitis B Vaccine: Unknown Medication Reconciliation New Medications: Digoxin (Digoxin) 0.25 Mg Tab 0.25 MG PO DAILY@16 for 30 Days, TAB Ferrous Sulfate (Ferrous Sulfate) 325 Mg Tab 325 MG PO BID for 30 Days, #60 TAB Furosemide (Furosemide) 40 Mg Tab 40 MG PO QAM for 30 Days, #30 TAB Gabapentin (Gabapentin) 600 Mg Tab 300 MG PO HS for 30 Days, TAB Levofloxacin (Levofloxacin) 500 Mg Tab 500 MG PO DAILY@2100 for 4 Days, TAB Continued Medications: Acetaminophen (Tylenol) 325 Mg Tab 650 MG PO Q8H PRN for mild pain or fever, TAB Duloxetine HCl (Duloxetine HCl) 20 Mg Cap 20 MG PO QAM for 30 Days, #30 CAP Emollient (Eucerin) 1 Lot Lot 1 APPLN TOP BID apply to legs Fluticasone Prop/Salmeterol (Advair Diskus 250/50 60 Dose) 1 Ea Aerp 1 PUFF INH BID, INHALER Hydrocodone/Acetaminophen 5MG/325MG (Ethan 5MG/325MG) Tab 1 TAB PO Q6H PRN for mod Pain for 30 Days, #30 TAB PRN PAIN Insulin Aspart (Novolog Flexpen) 100 Units/Ml Inj 0 UNITS SC ACHS, #1 Lactobacillus Acidophilus (Floranex) 1 Tab Tab 2 TAB PO TIDM, #90 TAB Levothyroxine Sodium (Levothyroxine Sodium) 50 Mcg Tab 50 MCG PO DAILY, TAB TAKE WITH 200MCG = 250MCG DAILY. Levothyroxine Sodium (Synthroid) 200 Mcg Tab 200 MCG PO DAILY TAKE WITH 50MCG TO TOTAL 250MCG Lorazepam (Lorazepam) 0.5 Mg Tab 0.5 MG PO BID PRN for Anxiety for 30 Days, #60 TAB Magnesium Oxide (Mag-Ox) 400 Mg Tab 400 MG PO BID, TAB Morphine Sulfate (Morphine Sulfate ER) 15 Mg Tabcr 30 MG PO Q12H for 3 Days, #12 TABS Nitroglycerin (Nitrostat) 0.4 Mg Tab 0.4 MG UT PRN, BTL NEEDED FOR CHEST PAIN : ONE TABLET, UNDER THE TONGUE, EVERY 5 MINUTES UP TO 3 DOSES. Omeprazole (Prilosec) 20 Mg Cap 20 MG PO DAILY, CAP Oxygen (Oxygen) Gas 3 LITERS NA CONTINOUS Polyethylene Glycol 3350 (Miralax) 1 Pow Pow 17 GM PO DAILY PRN for Constipation, #527 GM Potassium Chloride (Klor-Con M20) 20 Meq Tabcr 20 MEQ PO DAILY for 30 Days, #30 TAB 2 Refills Rivaroxaban (Xarelto) 10 Mg Tab 2 TAB PO DAILY for 10 Days, #20 TAB Spironolactone (Spironolactone) 25 Mg Tab 25 MG PO QAM for 30 Days, #30 TAB Tiotropium [place] (Spiriva Handihaler) 30 Puff/540 Mcg Aerp 1 CAP INH DAILY, INHALER Tramadol (Ultram) 50 Mg Tab 50 MG PO Q8H PRN for Pain for 30 Days, #30 TAB Discontinued Medications: Digoxin (Digoxin) 0.125 Mg Tab 0.125 MCG PO QAM Diltiazem Hcl Extended Release (Diltiazem Hcl) 240 Mg Cap 240 MG PO QAM Ferrous Gluconate (Ferrous Gluconate) 324 Mg Tab 324 MG PO DAILY, TAB Furosemide (Lasix) 20 Mg Tab 1 TAB PO DAILY for 30 Days, #30 TAB 5 Refills Gabapentin (Gabapentin) 300 Mg Cap 300 MG PO TID for 30 Days, #90 CAP Hospital Course The patient is a 71-year-old female resident of [facility], presently being treated for pneumonia with ceftriaxone, who brought to the emergency department reported abnormal laboratories and possible sepsis. The patient is nonverbal, and the history of present illness is severely limited. Patient was treated for pneumonia and possible UTI (though a UCx was never sent , ua was + LE and had pyuria). Patient's mental status did improve after antibiotics given and decreasing gabapentin dose due to AINSLEY. Patient continued to improve and did receive 6 days of zosyn + levaquin and can be resumed on levaquin for 4 more days. Her lasix was stopped for a few days due to AINSLEY and possible volume depletion and was resumed initially at 20mg but did not achieve negative fluid balance. She will be discharged on 40mg daily to maintain euvolemia. Vital Signs Date Time Temp Pulse Resp B/P Pulse Ox O2 Delivery O2 Flow Rate FiO2 01/02/17 08:00 Nasal Cannula 3.0 01/02/17 07:26 36.5 63 20 132/68 100 12/29/16 04:00 35 nad, aox3 irreg irreg, no murmurs appreciated decreased breath sounds, scattered rhonchi which resolve with coughing abd soft nt/nd +BS trace RLE edema, L BKA stump without erythema or drainage, stitches in place 1. Elevated troponin - conservative management at this time - will add baby dose aspirin and monitor for UGI bleed 2. Pulmonary edema with pleural effusions - afebrile, no leukocytosis - resume lasix 40 mg po daily 3. ?Pneumonia vs pulmonary edema - given zosyn and levaquin x6 days and resume levaquin for 6 more days - can probably stop zosyn after a few days and continue treatment with just levaquin to complete a 10 day course, 02/15 4. Afib - on Xarelto - dig level acceptable - HR controlled off diltiazem 50-70s, will stop diltiazem for now and cont on digoxin po 5. T2DM - hypoglycemic episode this afternoon - now eating again - glucose readings still on the lower side - resume outpatient insulin regimen 6. AINSLEY - resolved - cont lasix - resume spironolactone 7. diarrhea/loose stools - neg c diff Total Time Spent: Less than 30 minutes This includes examination of the patient, discharge planning, medication reconciliation, and communication with other providers. Discharge Instructions Please refer to the electronic Patient Visit Report (Discharge Instructions) for additional information. Additional Copies To Madhav Bennett
[2017-01-02] MEDS: INSULIN ASPART 100 UNITS/ML 3 ML PEN SC SCH ×5 (08:47→20:29)
[2017-01-02] MEDS: FERROUS SULFATE 325 MG TAB PO SCH ×2 (09:18→20:22)
[2017-01-02] MEDS: RIVAROXABAN 20 MG TAB PO SCH (09:19)
[2017-01-02] MEDS: TIOTROPIUM BROMIDE 5 PUFF/90 MCG INH INH SCH (09:19)
[2017-01-02] MEDS: FUROSEMIDE 40 MG TAB PO SCH (09:19)
[2017-01-02] MEDS ORDERED: NRN600 PO (14:36)
[2017-01-02] MEDS ORDERED: LVQ500 PO (14:36)
[2017-01-02] MEDS ORDERED: LSX40 PO (14:36)
[2017-01-02] MEDS ORDERED: FRRS300 PO (14:36)
[2017-01-02] MEDS ORDERED: LNX25 PO (14:36)
--- NOTE | 2017-01-02 14:38 | Discharge Instructions ---
Discharge Instructions Date of Service Jan 02, 2017. Admission Reason for Admission: Nstemi, Initial Episode Of Care, Pneumonia... Discharge Discharge Diagnosis / Problem: Pneumonia Discharge Goals Goal(s): Decrease discomfort, Increase independence, Improve disease control Activity Recommendations Activity Limitations: resume your previous activity . Current Hospital Diet Patient's current hospital diet: Diabetes Type 2 Diet Discharge Diet Recommended Diet: Diabetes Type 2 Diet Diet Texture: Pureed (blended smooth) Pending Studies Studies pending at discharge: no Medical Emergencies . Who to Call and When: Medical Emergencies: If at any time you feel your situation is an emergency, please call 911 immediately. . Non-Emergent Contact Non-Emergency issues call your: Primary Care Provider, Laundry Marker Supervisor Call Non-Emergent contact if: you have a fever, your pain is not controlled . . "Provider Documentation" section prepared by Yuli Payne. . Photonic Laboratory Technician Recommendations Photonic Laboratory Technician Recommendations: Wear stump [place] daily on left lower extremity. Okay to shower as tolerated. Continue to elevate to relieve swelling/pain. You have a follow up appointment schedule with Dr. Unger at [facility] on 01/07/17 at 9:15 a.m. Your appointment for 01/03 was cancelled. Please call [phone] with questions/concerns or need to reschedule appointment. VTE Core Measure Inpt VTE Proph given/why not?: Other Anticoagulation, SCD's
[2017-01-02 15:28] VITALS: BP 134/75; PULSE 57; TEMP 36.7; O2SAT 100
[2017-01-02 16:00] VITALS: O2SAT 100
[2017-01-02] MEDS: HYDROCODONE/ACETAMOPHEN 5/325MG TAB PO PRN (16:02)
[2017-01-02 16:04] VITALS: PULSE 70
[2017-01-02] MEDS: DIGOXIN 0.25 MG TAB PO SCH (16:05)
--- NOTE | 2017-01-02 18:20 | CARDIOLOGY PROGRESS NOTE ---
DATE: 01/02/2017 SUBJECTIVE: This afternoon Ms. Gloria complains of some pain at the left stump site and also some occasional pain in the right leg. She also has some concerns regarding some loose stools and irritation of her rectum. She states that she still has some difficulty with breathing, although this is relatively mild and she has relatively nonproductive cough. PHYSICAL EXAMINATION: GENERAL: She was alert. She was oriented. She answered all questions appropriately today. VITAL SIGNS: Include blood pressure of 134/75 with a pulse of 57. LUNGS: Auscultation of her lung apices reveal them to be clear, but she had a lot of upper airway congestion and bronchial breath sounds. CARDIAC EXAMINATION: Revealed her to be in an irregularly irregular rhythm. LABORATORY STUDIES: Obtained today included a white cell count of 5, hemoglobin of 8.3, platelet count of 154. Sodium is 144, potassium is 3.6, BUN was 9, creatinine was 0.7. ASSESSMENT AND PLAN: 1. Non-ST elevation myocardial infarction. The patient has been restarted on Xarelto and would benefit from a daily 81 mg aspirin. Once again I believe this was a demand event. She does not currently have any chest discomfort and given her other comorbidities would seem reasonable to treat her certainly at this time. 2. Atrial fibrillation. She has good rate control, we can restart her on anticoagulation. 3. Mitral regurgitation, mild. 4. Dyspnea. She may have an element of pulmonary vascular congestion. She has been started on diuretics, but does not appear to have affected a reasonable diuresis. Her Is and Os may in fact be inaccurate due to inability to collect all of her urine, is also being treated for pneumonia currently.
[2017-01-02] MEDS: TRAMADOL HCL 50 MG TAB PO PRN (20:21)
[2017-01-02] MEDS: LEVOFLOXACIN 500 MG TAB PO SCH (20:23)
[2017-01-02] MEDS: GABAPENTIN 600 MG TAB PO SCH (20:23)
[2017-01-02 23:50] VITALS: BP 121/68; PULSE 58; TEMP 36.7; O2SAT 99
[2017-01-03] MEDS: HYDROCODONE/ACETAMOPHEN 5/325MG TAB PO PRN (00:44)
[2017-01-03] MEDS: PIPERACILL/TAZOBAC IV 4.5 GM in DEXTROSE 5% 100ML IV SCH ×2 (05:42→14:00)
[2017-01-03] MEDS: LEVOTHYROXINE SODIUM PO SCH ×2 (06:22)
[2017-01-03 07:38] VITALS: BP 125/63; PULSE 57; TEMP 36.5; O2SAT 100
[2017-01-03] MEDS: FLUTICASONE/SALMETEROL 250/50 (ADVAIR) 14 PUFF/1 INHALER INH SCH (07:51)
[2017-01-03] MEDS: TIOTROPIUM BROMIDE 5 PUFF/90 MCG INH INH SCH (07:52)
[2017-01-03] MEDS: DULOXETINE HCL 20 MG CAP PO SCH (07:52)
[2017-01-03] MEDS: FUROSEMIDE 40 MG TAB PO SCH (07:52)
[2017-01-03] MEDS: PANTOprazole SOD 40 MG TAB PO SCH (07:52)
[2017-01-03] MEDS: FERROUS SULFATE 325 MG TAB PO SCH (07:52)
[2017-01-03] MEDS: RIVAROXABAN 20 MG TAB PO SCH (07:52)
[2017-01-03] MEDS: SPIRONOLACTONE 25 MG TAB PO SCH (07:52)
[2017-01-03] MEDS: NYSTATIN OINT 15 GM TUBE EXT SCH (07:52)
[2017-01-03] MEDS: INSULIN ASPART 100 UNITS/ML 3 ML PEN SC SCH ×2 (08:29→12:45)
--- NOTE | 2017-01-03 10:01 | Progress Note ---
Subjective Date of Service: Jan 03, 2017. Subjective Pt evaluation today including: conversation w/ patient, physical exam, review of studies, review of inpatient medication list Transfer to [facility] held due to insurance issues. Remains stable for transfer. No chest pain, no sob. No new complaints. Problem List Medical Problems: (1) Atrial fibrillation Status: Acute (2) Bifascicular block Status: Acute (3) Cellulitis of both lower extremities Status: Acute (4) Cellulitis of foot, left Status: Acute (5) Cellulitis of left lower leg Status: Acute (6) CHF (congestive heart failure) Status: Acute (7) Constipation Status: Acute (8) Diabetic foot ulcer Status: Acute (9) Electrolyte abnormality Status: Acute (10) Hyperkalemia Status: Acute (11) Hypokalemia Status: Acute (12) Leukocytosis Status: Acute (13) PNA (pneumonia) Status: Acute (14) Sepsis Status: Acute (15) Sepsis Status: Acute (16) UTI (urinary tract infection) Status: Acute (17) UTI (urinary tract infection) Status: Acute Review of Systems All Other Systems: Reviewed and Negative Medications Acetaminophen/ Hydrocodone Bitart ([place] 5/325 Tab) 1 tab Q6H PRN PO Last administered on 01/03/17 00:44; Admin Dose 1 TAB; Start 01/01/17 at 08:45; Stop 01/15/17 at 08:44 Dextrose (Dextrose 50% 50ML Syringe) 50 ml UD PRN IV; Start 12/27/16 at 21:45; Stop 01/26/17 at 21:44 Digoxin (Lanoxin Tab) 0.25 mg DAILY@16 PO Last administered on 01/02/17 16:05; Admin Dose 0.25 MG; Start 01/01/17 at 16:00; Stop 01/31/17 at 15:59 Duloxetine HCl (Cymbalta Cap) 20 mg QAM PO Last administered on 01/03/17 07:52 ; Admin Dose 20 MG; Start 01/02/17 at 08:00; Stop 02/01/17 at 07:59 Ferrous Sulfate (Feosol Tab) 325 mg BID PO Last administered on 01/03/17 07:52 ; Admin Dose 325 MG; Start 01/02/17 at 08:00; Stop 02/01/17 at 07:59 Furosemide (Lasix Tab) 40 mg QAM PO Last administered on 01/03/17 07:52; Admin Dose 40 MG; Start 01/02/17 at 08:00; Stop 02/01/17 at 07:59 Gabapentin (Neurontin Tab) 300 mg HS PO Last administered on 01/02/17 20:23; Admin Dose 300 MG; Start 01/01/17 at 21:00; Stop 01/31/17 at 20:59 Glucagon (Glucagon Inj) 1 mg UD PRN SQ; Start 12/27/16 at 21:45; Stop 01/26/17 at 21:44 Glucose (Glucose 40% Gel) UD PRN PO; Start 12/27/16 at 21:45; Stop 01/26/17 at 21:44 Glucose (Glucose Chew Tab) 1 tabs UD PRN PO; Start 12/27/16 at 21:45; Stop at 21:44 Insulin Aspart (novoLOG ASPART) SLIDING SCALE If C... ACHS SC Last administered on 01/03/17 12:45; Admin Dose 8 UNITS; Start 12/28/16 at 11:00; Stop 01/27/17 at 10:59 Insulin Glargine (Lantus Per Unit) 5 units TODAY@1300 SQ Last administered on 12:48; Admin Dose 5 UNITS; Start 01/03/17 at 13:00; Stop 01/03/17 at 14: 00 Ipratropium [place] (Atrovent 0.02% 0.5MG/2.5ML Neb) 0.5 mg Q2H PRN INH; Start 12/27/16 at 22:45; Stop 01/26/17 at 22:44 Levalbuterol 1.25 mg 1.25 mg Q2H PRN INH; Start 12/27/16 at 22:45; Stop at 22:44 Levothyroxine Sodium/ Levothyroxine Sodium (Synthroid Tab/ Synthroid Tab) 250 mcg DAILYBB PO Last administered on 01/03/17 06:22; Admin Dose 250 MCG; Start 01/02/17 at 06:30; Stop 02/01/17 at 06:29 Lorazepam (Ativan Inj) 0.5 mg Q8 PRN IV Last administered on 12/30/16 01:18; Admin Dose 0.5 MG; Start 12/28/16 at 09:45; Stop 01/27/17 at 09:44 Miscellaneous Information (Consult Glycemic Management Pharmacy) 1 ea UD N/A; Start 12/28/16 at 09:56; Stop 01/27/17 at 09:55 Nystatin (Mycostatin Oint) 1 appln BID EXT Last administered on 01/03/17 07:52 ; Admin Dose 1 APPLN; Start 12/28/16 at 21:00; Stop 01/27/17 at 20:59 Ondansetron HCl (Zofran Inj) 4 mg Q6H PRN IV Last administered on 01/02/17 21: 56; Admin Dose 4 MG; Start 12/27/16 at 21:45; Stop 01/26/17 at 21:44 Pantoprazole Sodium (Protonix Tab) 40 mg QAM PO Last administered on 01/03/17 07:52; Admin Dose 40 MG; Start 01/02/17 at 08:00; Stop 02/01/17 at 07:59 Piperacillin Sod/ Tazobactam Sod (Consult) 1 ea UD PRN N/A; Start 12/27/16 at 23:00; Stop 01/26/17 at 22:59 Piperacillin Sod/ Tazobactam Sod/ Dextrose (Zosyn Iv/D5 100ml) 120 ml @ 30 mls/ hr Q8H IV Last administered on 01/03/17 05:42; Admin Dose 30 MLS/HR; Start at 06:00; Stop 01/04/17 at 05:59 Rivaroxaban (Xarelto Tab) 20 mg DAILY PO Last administered on 01/03/17 07:52; Admin Dose 20 MG; Start 01/02/17 at 09:30; Stop 02/01/17 at 09:29 Salmeterol Xinafoate/ Fluticasone (Advair Diskus 250/50 Inh) 1 puff BID INH Last administered on 01/03/17 07:51; Admin Dose 1 PUFF; Start 01/01/17 at 08:00 ; Stop 01/31/17 at 07:59 Sodium Chloride ([place] Nasal [place]) 1 sprays PRN PRN NA Last administered on 16:46; Admin Dose 1 SPRAYS; Start 12/28/16 at 11:45; Stop 01/27/17 at 11 :44 Spironolactone (Aldactone Tab) 25 mg QAM PO Last administered on 01/03/17 07:52 ; Admin Dose 25 MG; Start 01/02/17 at 08:00; Stop 02/01/17 at 07:59 Tiotropium [place] (Spiriva Handihaler Inhaler) 1 puff DAILY INH Last administered on 01/03/17 07:52; Admin Dose 1 PUFF; Start 01/02/17 at 08:00; Stop 01/31/17 at 07:59 Tramadol HCl (Ultram Tab) 50 mg Q8H PRN PO Last administered on 01/02/17 20:21 ; Admin Dose 50 MG; Start 01/01/17 at 08:45; Stop 01/31/17 at 08:44 Objective Vital Signs Date Time Temp Pulse Resp B/P Pulse Ox O2 Delivery O2 Flow Rate FiO2 01/03/17 08:00 Nasal Cannula 3.0 01/03/17 07:38 36.5 57 20 125/63 100 3.0 01/03/17 00:00 Nasal Cannula 3.0 01/02/17 23:50 36.7 58 20 121/68 99 Nasal Cannula 3.0 01/02/17 16:05 70 01/02/17 16:04 70 01/02/17 16:00 100 Nasal Cannula 3.0 01/02/17 15:28 36.7 57 20 134/75 100 Nasal Cannula 3.0 Physical Exam Comments: nad, aox3, anicteric irreg irreg, no murmurs appreciated decreased breath sound, no wheezing, bibasilar rales abd soft nt/nd +BS no RLE edema, L BKA Laboratory Results Last 24 Hours Test 01/02/17 11:24 01/02/17 16:41 01/02/17 19:59 01/03/17 07:43 Bedside Glucose 215 mg/dl 178 mg/dl 207 mg/dl 148 mg/dl Assessment and Plan 1. Elevated troponin - conservative management at this time - will add baby dose aspirin and monitor for UGI bleed 2. Pulmonary edema with pleural effusions - afebrile, no leukocytosis - resume lasix 40 mg po daily 3. ?Pneumonia vs pulmonary edema - given zosyn and levaquin x6 days and resume levaquin for 3 more days - can probably stop zosyn after a few days and continue treatment with just levaquin to complete a 10 day course, 03/17 4. Afib - on Xarelto - dig level acceptable - HR controlled off diltiazem 50-70s, will stop diltiazem for now and cont on digoxin po 5. T2DM - hypoglycemic episode this afternoon - now eating again - glucose readings still on the lower side - resume outpatient insulin regimen 6. AINSLEY - resolved - cont lasix - resume spironolactone 7. diarrhea/loose stools - neg c diff Continued [facility] stay due to: multiple IV medications needed [facility]
[2017-01-03] MEDS ORDERED: LANTUS PER UNIT CHARGE SQ SCH (13:00)
--- NOTE | 2017-01-03 13:20 | Discharge Summary ---
Discharge Summary Date of Service Jan 03, 2017. Discharge Summary Admission Date: Dec 27, 2016 at 21:55 Discharge Date: Jan 02, 2017 Discharge Disposition: group home facility Principal Diagnosis: Pneumonia Immunizations: Have You Had Influenza Vaccine: Unknown Influenza Vaccine Date: Jun 23, 2013 History of Tetanus Vaccine?: Unknown History of Pneumococcal: Unknown Pneumococcal Date: Jun 23, 2011 History of Hepatitis B Vaccine: Unknown Medication Reconciliation New Medications: Digoxin (Digoxin) 0.25 Mg Tab 0.25 MG PO DAILY@16 for 30 Days, TAB Ferrous Sulfate (Ferrous Sulfate) 325 Mg Tab 325 MG PO BID for 30 Days, #60 TAB Furosemide (Furosemide) 40 Mg Tab 40 MG PO QAM for 30 Days, #30 TAB Gabapentin (Gabapentin) 600 Mg Tab 300 MG PO HS for 30 Days, TAB Levofloxacin (Levofloxacin) 500 Mg Tab 500 MG PO DAILY@2100 for 4 Days, TAB Continued Medications: Acetaminophen (Tylenol) 325 Mg Tab 650 MG PO Q8H PRN for mild pain or fever, TAB Duloxetine HCl (Duloxetine HCl) 20 Mg Cap 20 MG PO QAM for 30 Days, #30 CAP Emollient (Eucerin) 1 Lot Lot 1 APPLN TOP BID apply to legs Fluticasone Prop/Salmeterol (Advair Diskus 250/50 60 Dose) 1 Ea Aerp 1 PUFF INH BID, INHALER Hydrocodone/Acetaminophen 5MG/325MG ([place] 5MG/325MG) Tab 1 TAB PO Q6H PRN for mod Pain for 30 Days, #30 TAB PRN PAIN Insulin Aspart (Novolog Flexpen) 100 Units/Ml Inj 0 UNITS SC ACHS, #1 Lactobacillus Acidophilus (Floranex) 1 Tab Tab 2 TAB PO TIDM, #90 TAB Levothyroxine Sodium (Levothyroxine Sodium) 50 Mcg Tab 50 MCG PO DAILY, TAB TAKE WITH 200MCG = 250MCG DAILY. Levothyroxine Sodium (Synthroid) 200 Mcg Tab 200 MCG PO DAILY TAKE WITH 50MCG TO TOTAL 250MCG Lorazepam (Lorazepam) 0.5 Mg Tab 0.5 MG PO BID PRN for Anxiety for 30 Days, #60 TAB Magnesium Oxide (Mag-Ox) 400 Mg Tab 400 MG PO BID, TAB Morphine Sulfate (Morphine Sulfate ER) 15 Mg Tabcr 30 MG PO Q12H for 3 Days, #12 TABS Nitroglycerin (Nitrostat) 0.4 Mg Tab 0.4 MG UT PRN, BTL NEEDED FOR CHEST PAIN : ONE TABLET, UNDER THE TONGUE, EVERY 5 MINUTES UP TO 3 DOSES. Omeprazole (Prilosec) 20 Mg Cap 20 MG PO DAILY, CAP Oxygen (Oxygen) Gas 3 LITERS NA CONTINOUS Polyethylene Glycol 3350 (Miralax) 1 Pow Pow 17 GM PO DAILY PRN for Constipation, #527 GM Potassium Chloride (Klor-Con M20) 20 Meq Tabcr 20 MEQ PO DAILY for 30 Days, #30 TAB 2 Refills Rivaroxaban (Xarelto) 10 Mg Tab 2 TAB PO DAILY for 10 Days, #20 TAB Spironolactone (Spironolactone) 25 Mg Tab 25 MG PO QAM for 30 Days, #30 TAB Tiotropium [place] (Spiriva Handihaler) 30 Puff/540 Mcg Aerp 1 CAP INH DAILY, INHALER Tramadol (Ultram) 50 Mg Tab 50 MG PO Q8H PRN for Pain for 30 Days, #30 TAB Discontinued Medications: Digoxin (Digoxin) 0.125 Mg Tab 0.125 MCG PO QAM Diltiazem Hcl Extended Release (Diltiazem Hcl) 240 Mg Cap 240 MG PO QAM Ferrous Gluconate (Ferrous Gluconate) 324 Mg Tab 324 MG PO DAILY, TAB Furosemide (Lasix) 20 Mg Tab 1 TAB PO DAILY for 30 Days, #30 TAB 5 Refills Gabapentin (Gabapentin) 300 Mg Cap 300 MG PO TID for 30 Days, #90 CAP Hospital Course The patient is a 71-year-old female resident of [facility], presently being treated for pneumonia with ceftriaxone, who brought to the emergency department reported abnormal laboratories and possible sepsis. The patient is nonverbal, and the history of present illness is severely limited. Patient was treated for pneumonia. Patient's mental status did improve after antibiotics given and decreasing gabapentin dose due to AINSLEY. Patient continued to improve and did receive 6 days of zosyn + levaquin and can be resumed on levaquin for 3 more days. Her lasix was stopped for a few days due to AINSLEY and possible volume depletion and was resumed initially at 20mg but did not achieve negative fluid balance. She will be discharged on 40mg daily to maintain euvolemia. 1. Elevated troponin - conservative management at this time - will add baby dose aspirin and monitor for UGI bleed 2. Pulmonary edema with pleural effusions - afebrile, no leukocytosis - resume lasix 40 mg po daily 3. ?Pneumonia vs pulmonary edema - given zosyn and levaquin x6 days and resume levaquin for 3 more days - can probably stop zosyn after a few days and continue treatment with just levaquin to complete a 10 day course, 03/17 4. Afib - on Xarelto - dig level acceptable - HR controlled off diltiazem 50-70s, will stop diltiazem for now and cont on digoxin po 5. T2DM - hypoglycemic episode this afternoon - now eating again - glucose readings still on the lower side - resume outpatient insulin regimen 6. AINSLEY - resolved - cont lasix - resume spironolactone 7. diarrhea/loose stools - neg c diff Total Time Spent: Less than 30 minutes This includes examination of the patient, discharge planning, medication reconciliation, and communication with other providers. Discharge Instructions Please refer to the electronic Patient Visit Report (Discharge Instructions) for additional information. Additional Copies To Madhav Bennett
[2017-01-03 13:59] VITALS: BP 125/63; PULSE 57; TEMP 36.5; O2SAT 100
[2017-01-03 15:08] VITALS: BP 137/66; PULSE 51; TEMP 36.5; O2SAT 99
[2017-01-03] MEDS: DIGOXIN 0.25 MG TAB PO SCH (16:39)
--- NOTE | 2017-01-07 00:41 | EDITING REQUIRED CODING QUERY ---
CODING QUERY To promote full compliance with coding requirements relating to patient care, provider participation is requested in all cases of information coder uncertainty. Please assist us with the question(s) below: Coding Question(s) Please clarify the reason for patient's elevated troponin : NSTEMI Demand ischemia Physician's Response(s): Thank you Viky Marinelliwell Principal Diagnosis: "_that condition established after study, to be chiefly responsible for occasioning the admission of the patient to the hospital for care." Co-Existing Principal Diagnosis: "_when two or more diagnoses equally meet the criteria for principal diagnosis as determined by the circumstances of admission, diagnostic work up, and/or therapy provided, and the Alphabetic Index, Tabular List, or another coding guideline does not provide sequencing direction, any one of the diagnoses may be sequenced first." "When the physician has documented what appears to be a current diagnosis in the body of the record, but has not included the diagnosis in the final diagnostic statement, the physician should be asked whether the diagnosis should be added." (Source Coding [facility] 2 QTR90. p3-4)
[2017-01-21] MEDS ORDERED: INSDGIPEN SC (12:54)
[2017-01-22] MEDS ORDERED: LORA-741 PO (15:45)
[2017-01-22] MEDS ORDERED: HYDR-3983 PO (15:45)
[2017-06-13] MEDS ORDERED: ASCOCRY2 (14:49)
[2017-06-13] MEDS ORDERED: MULT-116 PO (14:49)
[2017-07-03] MEDS ORDERED: GABA-113 PO (15:06)
[2017-07-03] MEDS ORDERED: SALI0.6510 NAE (15:06)
[2017-07-03] MEDS ORDERED: LACT1TAB4 PO (15:06)
[2017-07-03] MEDS ORDERED: MOML PO (15:06)
[2017-07-03] MEDS ORDERED: NVLG SC ×2 (15:06)
[2017-07-03] MEDS ORDERED: DIGO1TAB90 PEG (15:06)
[2017-07-03] MEDS ORDERED: MULT-190 PO (15:06)
[2017-07-03] MEDS ORDERED: SODIENE PR (15:06)
[2017-07-03] MEDS ORDERED: FERR1TAB13 PO (15:06)
[2017-07-03] MEDS ORDERED: COLE5GRA PO (15:06)
[2017-07-03] MEDS ORDERED: DULO-24 PO (15:06)
[2017-07-03] MEDS ORDERED: INSDGI SC (15:06)
[2017-07-03] MEDS ORDERED: RIVA1.5T PO (15:06)
[2017-07-03] MEDS ORDERED: HYDR-3983 PO (15:06)
[2017-07-03] MEDS ORDERED: LORA-741 PO (15:06)
[2017-07-03] MEDS ORDERED: RANI150C4 PO (15:06)
[2017-07-18] MEDS ORDERED: MULTTAB63 PO (07:37)
[2017-07-18] MEDS ORDERED: HMLI7525 SC (07:37)
[2017-07-18] MEDS ORDERED: TRAM-10 PO (07:37)
== END 2017-01-03 17:23 | DRG 193 ==
LOC: ENRESERVDT → ENRESERVTM → EDBD 19:20 → C.EDA 19:31 → C.2T 21:55 → C.4E 12-31 19:18
PROVIDERS: ADMIT Hospitalist; ATTEND Internal Medicine
DX: J18.9 Pneumonia, unspecified organism (principal); I21.4 Non-ST elevation (NSTEMI) myocardial infarction; I13.0 Hypertensive heart and chronic kidney disease with heart failure and stage 1 through stage 4 chronic kidney disease, or unspecified chronic kidney disease; I24.8 Other forms of acute ischemic heart disease; R26.9 Unspecified abnormalities of gait and mobility; Z90.49 Acquired absence of other specified parts of digestive tract; J44.9 Chronic obstructive pulmonary disease, unspecified; E11.22 Type 2 diabetes mellitus with diabetic chronic kidney disease; F41.9 Anxiety disorder, unspecified; E03.9 Hypothyroidism, unspecified; G47.33 Obstructive sleep apnea (adult) (pediatric); Z82.49 Family history of ischemic heart disease and other diseases of the circulatory system; Z86.14 Personal history of Methicillin resistant Staphylococcus aureus infection; Z88.8 Allergy status to other drugs, medicaments and biological substances; Z99.81 Dependence on supplemental oxygen; Z79.899 Other long term (current) drug therapy; Z79.4 Long term (current) use of insulin; Z79.01 Long term (current) use of anticoagulants; I25.2 Old myocardial infarction; G89.4 Chronic pain syndrome; K21.9 Gastro-esophageal reflux disease without esophagitis; E11.40 Type 2 diabetes mellitus with diabetic neuropathy, unspecified; Z89.512 Acquired absence of left leg below knee; E87.5 Hyperkalemia; Z66 Do not resuscitate; D64.9 Anemia, unspecified; I48.2 Chronic atrial fibrillation; R53.81 Other malaise; E11.649 Type 2 diabetes mellitus with hypoglycemia without coma; R19.7 Diarrhea, unspecified; I34.0 Nonrheumatic mitral (valve) insufficiency; E11.51 Type 2 diabetes mellitus with diabetic peripheral angiopathy without gangrene; N18.3 Chronic kidney disease, stage 3 (moderate); I50.9 Heart failure, unspecified; I25.10 Atherosclerotic heart disease of native coronary artery without angina pectoris; Z87.891 Personal history of nicotine dependence; R41.82 Altered mental status, unspecified

== ENCOUNTER → 2016-12-27 | Outpatient (CLI) | payer BC ==
[~2016-12-27] MED LIST changes: +ASCO500T16 PO; +ASCOCRY2; +ATV5 PO; +COLE5GRA PO; +CYM20 PO; +DIGO1TAB90 PEG; +DULO-24 PO; +FERR1TAB13 PO; +FRRS300 PO; +GABA-113 PO; +HMLI7525 SC; +HYDR-3983 PO; +IMD/2 PO; +INSDGI SC; +INSDGIPEN SC; +IPRASOL4 INH; +LACT1TAB4 PO; -LEVO1TAB33 PO; -LINE1TAB6 PO; +LNX25 PO; +LORA-741 PO; +LSX40 PO; +LVQ500 PO; +MOML PO; +MRPSR15 PO; +MULT-116 PO; +MULT-190 PO; +MULTTAB63 PO; +NRN300 PO; +NRN600 PO; +NVLG SC; +RANI150C4 PO; +RIVA1.5T PO; +RIVA1TAB4 PO; +SALI0.6510 NAE; +SODIENE PR; -THEO300T5 PO; +XRL10 PO
[2016-12-27 14:53] LABS: HEMATOCRIT 30.3 % (37-47); MEAN CORPUSCULAR HEMOGLOBIN 28.5 pg (25-34); MEAN CORPUSCULAR HGB CONC 31.4 g/dl (32-36); MEAN PLATELET VOLUME 8.9 fL (7.4-10.4); PLATELET COUNT 207 K/uL (130-400); RED BLOOD COUNT 3.33 M/uL (4.2-5.4); WHITE BLOOD COUNT 12.15 K/uL (4.8-10.8)
[2016-12-27 15:20] LABS: BASO % 0.1 %; BASO ABS # 0.01 K/uL (0-0.2); COMPLETE YES; EOS % 0.5 %; IG% 1.2 %; LYMPH % 8.6 %; LYMPH ABS # 1.04 K/uL (1.2-3.4); MONO % 10.7 %; NEUT % 78.9 %; POLYCHROMASIA 1+
[2016-12-27 15:36] LABS: ALB/GLOB RATIO 0.6 (0.9-2); ALKALINE PHOSPHATASE 103 U/L (45-117); ALT/SGPT 10 U/L (12-78); AST/SGOT 13 U/L (15-37); BLOOD UREA NITROGEN 38 mg/dl (7-18); BUN/CREATININE RATIO 19.9 (10-20); CALCIUM 9.6 mg/dl (8.5-10.1); CARBON DIOXIDE 29 mmol/L (21-32); CHLORIDE 104 mmol/L (98-107); GLUCOSE 271 mg/dl (70-99); POTASSIUM 6.1 mmol/L (3.5-5.1); SODIUM 139 mmol/L (136-145)
== END ==
LOC: C.LABCC 14:31
PROVIDERS: ATTEND Internal Medicine
DX: R41.82 Altered mental status, unspecified (principal)

== ENCOUNTER → 2017-01-05 | Outpatient (CLI) | payer BC, OTHER ==
[~2017-01-05] MED LIST changes: +ASCO500T16 PO; +ASCOCRY2; +COLE5GRA PO; +DIGO1TAB90 PEG; -DILT240C75 PO; +DULO-24 PO; +FERR1TAB13 PO; -FERR325T18 PO; +FRRS300 PO; -FURO20TA PO; +GABA-113 PO; +HMLI7525 SC; +HYDR-3983 PO; +IMD/2 PO; +INSDGI SC; +INSDGIPEN SC; +IPRASOL4 INH; +LACT1TAB4 PO; -LNX125 PO; +LNX25 PO; +LORA-741 PO; +LSX40 PO; +LVQ500 PO; +MOML PO; +MULT-116 PO; +MULT-190 PO; +MULTTAB63 PO; -NRN300 PO; +NRN600 PO; +NVLG SC; +RANI150C4 PO; +RIVA1.5T PO; +RIVA1TAB4 PO; +SALI0.6510 NAE; +SODIENE PR; -XRL10 PO
[2017-01-05 18:57] LABS: MANUAL MICROSCOPIC REQUIRED? NO; REVIEW REQ? NO; URINE APPEARANCE CLEAR (CLEAR); URINE BILIRUBIN NEG (NEG); URINE COLOR YELLOW; URINE NITRITE NEG (NEG); URINE PH 5.5 (4.5-7.5); URINE SPECIFIC GRAVITY 1.009 (1.000-1.030); UROBILINOGEN NEG (NEG)
== END | disposition home or self-care (01) ==
LOC: C.LABCC 17:30
PROVIDERS: ATTEND Internal Medicine
DX: N39.0 Urinary tract infection, site not specified (principal); R30.0 Dysuria

== ENCOUNTER → 2017-01-13 | Outpatient (CLI) | payer BC ==
[2017-01-13 08:19] LABS: HEMATOCRIT 27.4 % (37-47); MEAN CELL VOLUME 91.9 fL (80-100); MEAN CORPUSCULAR HEMOGLOBIN 29.2 pg (25-34); MEAN CORPUSCULAR HGB CONC 31.8 g/dl (32-36); MEAN PLATELET VOLUME 9.8 fL (7.4-10.4); PLATELET COUNT 161 K/uL (130-400); RED BLOOD COUNT 2.98 M/uL (4.2-5.4); WHITE BLOOD COUNT 4.97 K/uL (4.8-10.8)
[2017-01-13 08:26] LABS: BLOOD UREA NITROGEN 31 mg/dl (7-18); BUN/CREATININE RATIO 35.9 (10-20); CARBON DIOXIDE 31 mmol/L (21-32); CHLORIDE 101 mmol/L (98-107); CREATININE 0.85 mg/dl (0.60-1.20); GLUCOSE 350 mg/dl (70-99); POTASSIUM 4.9 mmol/L (3.5-5.1); SODIUM 139 mmol/L (136-145)
[2017-01-13 08:36] LABS: BETA-HYDROXYBUTYRATE 1.67 mg/dL (0.2-2.81)
[2017-01-13 08:49] LABS: CALCIUM 8.5 mg/dl (8.5-10.1)
== END | disposition home or self-care (01) ==
LOC: C.LABCC 07:47
PROVIDERS: ATTEND Internal Medicine
DX: I48.91 Unspecified atrial fibrillation (principal)

== ENCOUNTER 2017-01-14 13:19 | Inpatient (IN) | payer BC, OTHER ==
[~2017-01-14] VITALS: Ht 160 cm; Wt 85.5 kg
[~2017-01-14 13:19] MED LIST changes: -ASCO500T16 PO; -ASCOCRY2; -COLE5GRA PO; -DIGO1TAB90 PEG; -DULO-24 PO; -FERR1TAB13 PO; -GABA-113 PO; -HMLI7525 SC; -HYDR-3983 PO; -IMD/2 PO; -INSDGI SC; -INSDGIPEN SC; -IPRASOL4 INH; -LACT1TAB4 PO; -LORA-741 PO; -MOML PO; -MULT-116 PO; -MULT-190 PO; -MULTTAB63 PO; -NVLG SC; -RANI150C4 PO; -RIVA1.5T PO; -RIVA1TAB4 PO; -SALI0.6510 NAE; -SODIENE PR
[2017-01-14] MEDS ORDERED: ACETAMINOPHEN 650 MG SUPP PR ONE (13:30)
[2017-01-14] MEDS ORDERED: RIVA1TAB4 PO (13:56)
[2017-01-14] MEDS ORDERED: IMD/2 PO (13:56)
[2017-01-14] MEDS ORDERED: IPRASOL4 INH (13:56)
[2017-01-14] MEDS ORDERED: ASCO500T16 PO (13:56)
--- NOTE | 2017-01-14 13:56 | DIAGNOSTIC IMAGING REPORT ---
CHEST ONE VIEW PORTABLE CLINICAL HISTORY: Shortness of breath dyspnea COMPARISON STUDY: 12/29/2016 FINDINGS: Increase in right pleural effusion. Heart remains enlarged. Pulmonary vasculature is prominent. IMPRESSION: Congestive failure. Right pleural effusion progressive from the prior exam. Electronically signed by: Casitllo Thompson M.D. 01/14/2017 1:55 PM Dictated Date/Time: 01/14/2017 1:54 PM
[2017-01-14 13:57] LABS: HEMATOCRIT 29.8 % (37-47); MEAN CELL VOLUME 92.5 fL (80-100); MEAN CORPUSCULAR HEMOGLOBIN 28.9 pg (25-34); MEAN CORPUSCULAR HGB CONC 31.2 g/dl (32-36); MEAN PLATELET VOLUME 9.3 fL (7.4-10.4); PLATELET COUNT 168 K/uL (130-400); RED BLOOD COUNT 3.22 M/uL (4.2-5.4); WHITE BLOOD COUNT 11.55 K/uL (4.8-10.8)
[2017-01-14 14:07] LABS: INR 1.3 (0.9-1.1); PARTIAL THROMBOPLASTIN RATIO 1.2
[2017-01-14 14:19] LABS: CALCIUM 8.6 mg/dl (8.5-10.1); CREATININE 1.1 mg/dl (0.60-1.20); MAGNESIUM 2.2 mg/dl (1.8-2.4); POTASSIUM 5.2 mmol/L (3.5-5.1)
--- NOTE | 2017-01-14 14:23 | DIAGNOSTIC IMAGING REPORT ---
HEAD CT NONCONTRAST CT DOSE: 729.78 mGycm HISTORY: Mental status change ams eval for bleed TECHNIQUE: Multiaxial CT images of the head were performed without the use of intravenous contrast. Comparison: 12/21/2016 Findings: The paranasal sinuses and mastoid air cells are clear. The calvarium and skull base are intact. The ventricles and sulci are within normal limits. There is no mass, hematoma, midline shift, or acute infarct. Impression: No acute intracranial abnormality. Electronically signed by: Castillo Thompson M.D. 01/14/2017 2:22 PM Dictated Date/Time: 01/14/2017 2:21 PM
[2017-01-14 14:25] LABS: ALB/GLOB RATIO 0.7 (0.9-2); ANISOCYTOSIS PRESENT; BASO % 0.2 %; BASO ABS # 0.02 K/uL (0-0.2); COMPLETE YES; EOS % 1.7 %; IG% 0.4 %; LYMPH % 8.7 %; LYMPH ABS # 1.01 K/uL (1.2-3.4); MONO % 8.6 %; NEUT % 80.4 %
[2017-01-14] MEDS ORDERED: FUROSEMIDE 40 MG/4 ML VIAL IV STA (14:51)
[2017-01-14] MEDS ORDERED: PIPERACILLIN/TAZOBACTAM 4.5 GM/100ML D5W IV STA (14:54)
[2017-01-14] MEDS ORDERED: LORAZEPAM 0.5 MG TAB PO PRN (16:00)
[2017-01-14] MEDS ORDERED: ONDANSETRON INJ 2 MG/ML 2 ML VIAL IV PRN (16:00)
[2017-01-14] MEDS ORDERED: POLYETHYLENE (MIRALAX) 17 GM PACK PO PRN (16:00)
[2017-01-14] MEDS ORDERED: ALUMINUM/MAGNESIUM/SIMETH (MAALOX MAX) 30 ML UDC PO PRN (16:00)
[2017-01-14] MEDS ORDERED: NITROGLYCERIN 0.4 MG SL PER TAB CHARGE SL PRN (16:00)
[2017-01-14] MEDS ORDERED: LOPERAMIDE HCL 2 MG CAP PO PRN (16:00)
[2017-01-14] MEDS ORDERED: TRAMADOL HCL 50 MG TAB PO PRN (16:00)
[2017-01-14] MEDS ORDERED: MAGNESIUM HYDROXIDE SUSP 30 ML UDC PO PRN (16:00)
--- NOTE | 2017-01-14 16:29 | History and Physical ---
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 Could not obtained HPI or ROS secondary to patient's status. According to records, patient received CXR at [facility] on 01/13 suggestive of right lower lung pneumonia and pulmonary edema; patient was treated with Levaquin and Lasix. However, patient's status continued to worsen. 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 T2DM CAD HTN diastolic HF a.fib hypothyroidism COPD GERD anxiety/depression Family History Heart disease Social History Smoking Status: Unknown if Ever Smoked Drug Use: none Marital Status: Housing status: lives alone, detention Occupational Status: disabled Immunizations History of Influenza Vaccine: Unknown Influenza Vaccine Date: Jun 23, 2013 History of Tetanus Vaccine?: Unknown History of Pneumococcal: Unknown Pneumococcal Date: Jun 23, 2011 History of Hepatitis B Vaccine: Unknown Multi-Drug Resistant Organisms History of MDRO: No Type of MDRO: MRSA Allergies Coded Allergies: Duloxetine (Verified Adverse Reaction, Mild, DIZZINESS, 12/27/16) Indigotindisulfonate (Verified Adverse Reaction, Unknown, "spaced out", ) Home Medications Scheduled Ascorbic Acid (Ascorbic Acid), 500 MG PO BID Digoxin (Digoxin), 0.25 MG PO DAILY@16 Duloxetine HCl (Duloxetine HCl), 20 MG PO QAM Ferrous Sulfate (Ferrous Sulfate), 325 MG PO BID Fluticasone Prop/Salmeterol (Advair Diskus 250/50 60 Dose), 1 PUFF INH BID Furosemide (Furosemide), 40 MG PO QAM Gabapentin (Gabapentin), 300 MG PO HS Insulin Aspart (Novolog Flexpen), 0 UNITS SC ACHS Lactobacillus Acidophilus (Floranex), 2 TAB PO TIDM Levothyroxine Sodium (Levothyroxine Sodium), 50 MCG PO DAILY Levothyroxine Sodium (Synthroid), 200 MCG PO DAILY Magnesium Oxide (Mag-Ox), 400 MG PO BID Nitroglycerin (Nitrostat), 0.4 MG UT PRN Omeprazole (Prilosec), 20 MG PO DAILY Oxygen (Oxygen), 3 LITERS NA CONTINOUS Potassium Chloride (Klor-Con M20), 20 MEQ PO DAILY Rivaroxaban (Xarelto), 20 MG PO DAILY Spironolactone (Spironolactone), 25 MG PO QAM Tiotropium [place] (Spiriva Handihaler), 1 CAP INH DAILY Scheduled PRN Acetaminophen (Tylenol), 650 MG PO Q8H PRN for mild pain or fever Hydrocodone/Acetaminophen 5MG/325MG ([place] 5MG/325MG), 1 TAB PO Q6H PRN for mod Pain Ipratropium-Albuterol (Duoneb), 1 TREATMENT INH Q2H PRN for SOB/Wheezing Loperamide Hcl (Imodium), 2 MG PO UD PRN for loose stools Lorazepam (Lorazepam), 0.5 MG PO BID PRN for Anxiety Polyethylene Glycol 3350 (Miralax), 17 GM PO DAILY PRN for Constipation Tramadol (Ultram), 50 MG PO Q8H PRN for Pain Physical Exam Vital Signs Date Time Temp Pulse Resp B/P Pulse Ox O2 Delivery O2 Flow Rate FiO2 01/14/17 15:45 72 24 140/49 97 Nasal Cannula 6.0 01/14/17 13:25 94 Nasal Cannula 6.0 01/14/17 13:25 39.2 78 18 153/58 95 Nasal Cannula 6.0 01/14/17 13:25 94 Nasal Cannula 6.0 General Appearance: + mild distress (lying in bed; non-verbal; moans; gargling ) Head: normocephalic, atraumatic Eyes: normal inspection, PERRL ENT: hearing grossly normal Neck: supple Respiratory/Chest: no respiratory distress, no accessory muscle use, + decreased breath sounds (throughout all lung gomez ), + crackles (throughout all lung gomez ) Cardiovascular: + pertinent finding (Heart sounds not appreciated secondary to harsh BS ) Abdomen/GI: normal bowel sounds, non tender, soft Extremities/Musculoskelatal: no calf tenderness, no pedal edema, + pertinent finding (left BKA noted w/ slight warmth/erythema ) Neurologic/Psych: alert Skin: normal color, warm/dry, no rash Diagnostics Laboratory Results Results Past 24 Hours Test 01/14/17 13:36 01/14/17 13:40 01/14/17 13:51 01/14/17 15:45 Range/Units White Blood Count 11.55 4.8-10.8 K/uL Red Blood Count 3.22 4.2-5.4 M/uL Hemoglobin 9.3 12.0-16.0 g/dL Hematocrit 29.8 37-47 % Mean Corpuscular Volume 92.5 80-100 fL Mean Corpuscular Hemoglobin 28.9 25-34 pg Mean Corpuscular Hemoglobin Concent 31.2 32-36 g/dl Platelet Count 168 130-400 K/uL Mean Platelet Volume 9.3 7.4-10.4 fL Neutrophils (%) (Auto) 80.4 % Lymphocytes (%) (Auto) 8.7 % Monocytes (%) (Auto) 8.6 % Eosinophils (%) (Auto) 1.7 % Basophils (%) (Auto) 0.2 % Neutrophils # (Auto) 9.28 1.4-6.5 K/uL Lymphocytes # (Auto) 1.01 1.2-3.4 K/uL Monocytes # (Auto) 0.99 0.11-0.59 K/uL Eosinophils # (Auto) 0.20 0-0.5 K/uL Basophils # (Auto) 0.02 0-0.2 K/uL RDW Standard Deviation 67.7 36.4-46.3 fL RDW Coefficient of Variation 19.8 11.5-14.5 % Immature Granulocyte % (Auto) 0.4 % Immature Granulocyte # (Auto) 0.05 0.00-0.02 K/uL Anisocytosis PRESENT Prothrombin Time 14.0 9.0-12.0 SECONDS Prothromb Time International Ratio 1.3 0.9-1.1 Activated Partial Thromboplast Time 30.3 21.0-31.0 SECONDS Partial Thromboplastin Ratio 1.2 Sodium Level 142 136-145 mmol/L Potassium Level 5.2 3.5-5.1 mmol/L Chloride Level 106 98-107 mmol/L Carbon Dioxide Level 34 21-32 mmol/L Anion Gap 2.0 3-11 mmol/L Blood Urea Nitrogen 39 7-18 mg/dl Creatinine 1.10 0.60-1.20 mg/dl Est Creatinine Clear Calc Drug Dose 50.0 ml/min Estimated GFR () 58.1 Estimated GFR (Non- 50.1 BUN/Creatinine Ratio 35.0 10-20 Random Glucose 265 70-99 mg/dl Calcium Level 8.6 8.5-10.1 mg/dl Magnesium Level 2.2 1.8-2.4 mg/dl Total Bilirubin 1.3 0.2-1 mg/dl Aspartate Amino Transf (AST/SGOT) 22 15-37 U/L Alanine Aminotransferase (ALT/SGPT) 24 12-78 U/L Alkaline Phosphatase 206 45-117 U/L Troponin I 0.042 0-0.045 ng/ml Pro-B-Type Natriuretic Peptide 8235 0-900 pg/ml Total Protein 6.2 6.4-8.2 gm/dl Albumin 2.6 3.4-5.0 gm/dl Globulin 3.6 2.5-4.0 gm/dl Albumin/Globulin Ratio 0.7 0.9-2 Bedside Lactic Acid Venous 1.26 0.90-1.70 mmol/L Microbiology Results 01/14/17 Blood Culture, Received Pending 01/14/17 Blood Culture, Received Pending 01/14/17 Urine Culture, [place]ee[place] Batch Pending Diagnostic Radiology HEAD CT NONCONTRAST CT DOSE: 729.78 mGycm HISTORY: Mental status change ams eval for bleed TECHNIQUE: Multiaxial CT images of the head were performed without the use of intravenous contrast. Comparison: 12/21/2016 Findings: The paranasal sinuses and mastoid air cells are clear. The calvarium and skull base are intact. The ventricles and sulci are within normal limits. There is no mass, hematoma, midline shift, or acute infarct. Impression: No acute intracranial abnormality. Electronically signed by: Castillo Thompson M.D. 01/14/2017 2:22 PM Dictated Date/Time: 01/14/2017 2:21 PM The status of this report is Signed. Draft = Not yet reviewed or approved by Radiologist. Signed = Reviewed and approved by Radiologist. CHEST ONE VIEW PORTABLE CLINICAL HISTORY: Shortness of breath dyspnea COMPARISON STUDY: 12/29/2016 FINDINGS: Increase in right pleural effusion. Heart remains enlarged. Pulmonary vasculature is prominent. IMPRESSION: Congestive failure. Right pleural effusion progressive from the prior exam. Electronically signed by: Castillo Thompson M.D. 01/14/2017 1:55 PM Dictated Date/Time: 01/14/2017 1:54 PM The status of this report is Signed. Draft = Not yet reviewed or approved by Radiologist. Signed = Reviewed and approved by Radiologist. EKG KENNETH HURT ID:[id number] 14-JAN-2017 13:25:46 [facility] Atrial fibrillation Right bundle branch block Left anterior fascicular block Bifascicular block Possible Lateral infarct (cited on or before 27-DEC-2016) Abnormal ECG When compared with ECG of 29-DEC-2016 06:37, Serial changes of Lateral infarct Present 25mm/s 10mm/mV 150Hz 8.0 SP2 12SL 241 RICK: 0 Referred by: Unconfirmed Vent. 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 AMS, ?pulmonary source w/ temperature of 39.2 and elevated WBC: - Admit to [facility] for cardiac monitoring - Trend cardiac enzymes- initial trop negative - EKG abnormal- repeat tomorrow AM and PRN CP - IV Vancomycin and Zosyn - MRSA swab pending - Influenza pending - UCx and BCx pending - DuoNebs QID and q2 hrs PRN - O2 protocol, wean as tolerated- wears 2L at all times - Follow CBC - Head CT- unremarkable Acute on chronic diastolic CHF: - IV Lasix 40 mg BID- hold Lasix 40 mg PO - Monitor I&Os and daily weights - Johnston placed - ECHO 12/30/16: * There is borderline concentric left ventricular hypertrophy. * Left ventricular systolic function is normal. * The left atrium is severely dilated. * The right atrium is moderately dilated. * There is mild mitral regurgitation. * Right ventricular systolic pressure is elevated at 30-40mmHg. Mild hyperkalemia of 5.2 at admission: - Potassium and Aldactone supplement held - IV Lasix - Follow PRP Chronic lower extremity wound s/p left BKA: - Noted erythema and warmth- consult wound care, appreciate recommendations T2DM: - Hold home regimen - BSG ACHS with sliding insulin scale coverage CAD/HTN/A.Fib: - Continue Digoxin 125 mcg by mouth daily, Cardizem-CD 240 mg daily, and Xarelto 20 mg daily - Continue Mag oxide 400 mg twice a day- mag level WNL - Nitroglycerin sublingually when necessary Hypothyroidism: Continue Levothyroxine 250 mcg by mouth daily COPD: Continue Advair 250/50 inhalation twice a day, Spiriva Chronic anemia- STABLE: Continue Iron supplement Anxiety/depression: Continue Cymbalta 20 mg daily GERD: Protonix daily GI Prophylaxis: Maalox PRN, IV Zofran PRN, Colace and/or Milk of Mag PRN DVT prophylaxis: Xarelto Code Status: LEVEL V, DNR Dispo: - From [place] - PT/OT consulted - disability services coordinator consulted Level of Care Telemetry Resuscitation Status DO NOT RESUSCITATE VTE Prophylaxis VTE Risk Assessment Done? Y/N: Yes Risk Level: Moderate Given or contraindicated: Other Anticoagulation, T.E.D. Stockings, SCD's
[2017-01-14 18:12] LABS: INFLUENZA A PCR Neg for Influ A (NEG); INFLUENZA B PCR Neg for Influ B (NEG)
--- NOTE | 2017-01-14 18:16 | EMERGENCY ROOM VISIT NOTE ---
History Report prepared by Kisha: Adrienne Jain Under the Supervision of: Dr. Tirso Kenny M.D. First contact with patient: 13:44 Chief Complaint: SHORTNESS OF BREATH Stated Complaint: ALTERED MENTAL STATUS Nursing Triage Summary: Shortness of breath, AMS, Fever History of Present Illness The patient is a 71 year old female who presents to the Emergency Room with constant altered mental status beginning 24 hours ago. Per nursing staff, the patient was sent here from [facility] after having altered mental status for 24 hours. They report a temperature of 100 and note that she was given Levaquin and Lasix for pneumonia and CHF. The patient denies any chest pain and headache. HPI limited secondary to altered mental status. Source of History: nursing staff, other ([facility]) History Limited By: AMS Onset: 24 hours Position: other (global) Quality: other (AMS) Timing: constant Associated Symptoms: No SOB, No chest pain, No headache Review of Systems Limited due to altered mental status Past Medical & Surgical Medical Problems: (1) Afib (2) AINSLEY (acute kidney injury) (3) Ambulatory dysfunction (4) Ambulatory dysfunction (5) Anemia (6) CHF (congestive heart failure) (7) Cholecystectomy (8) Chronic congestive heart failure (9) Chronic obstructive lung disease (10) CKD (chronic kidney disease) stage 3, GFR 30-59 ml/min (11) Complete below knee amputation of left lower extremity (12) COPD exacerbation (13) Diabetes mellitus (14) History of anxiety (15) History of hypokalemia (16) Hypokalemia (17) Hypothyroidism (18) NSTEMI, initial episode of care (19) Obstructive sleep apnea (20) Open wound (21) Osteomyelitis of left foot (22) PNA (pneumonia) (23) Pneumonia of both lower lobes (24) Septicemia due to group B Streptococcus (25) Shortness of breath (26) Wound infection Family History Heart disease Social History Smoking Status: Unknown if Ever Smoked Alcohol Use: none Drug Use: none Marital Status: Housing Status: lives with family, long term Occupation Status: disabled Current/Historical Medications Scheduled Ascorbic Acid (Ascorbic Acid), 500 MG PO BID Digoxin (Digoxin), 0.25 MG PO DAILY@16 Duloxetine HCl (Duloxetine HCl), 20 MG PO QAM Ferrous Sulfate (Ferrous Sulfate), 325 MG PO BID Fluticasone Prop/Salmeterol (Advair Diskus 250/50 60 Dose), 1 PUFF INH BID Furosemide (Furosemide), 40 MG PO QAM Gabapentin (Gabapentin), 300 MG PO HS Insulin Aspart (Novolog Flexpen), 0 UNITS SC ACHS Lactobacillus Acidophilus (Floranex), 2 TAB PO TIDM Levothyroxine Sodium (Levothyroxine Sodium), 50 MCG PO DAILY Levothyroxine Sodium (Synthroid), 200 MCG PO DAILY Magnesium Oxide (Mag-Ox), 400 MG PO BID Nitroglycerin (Nitrostat), 0.4 MG UT PRN Omeprazole (Prilosec), 20 MG PO DAILY Oxygen (Oxygen), 3 LITERS NA CONTINOUS Potassium Chloride (Klor-Con M20), 20 MEQ PO DAILY Rivaroxaban (Xarelto), 20 MG PO DAILY Spironolactone (Spironolactone), 25 MG PO QAM Tiotropium [place] (Spiriva Handihaler), 1 CAP INH DAILY Scheduled PRN Acetaminophen (Tylenol), 650 MG PO Q8H PRN for mild pain or fever Hydrocodone/Acetaminophen 5MG/325MG ([place] 5MG/325MG), 1 TAB PO Q6H PRN for mod Pain Ipratropium-Albuterol (Duoneb), 1 TREATMENT INH Q2H PRN for SOB/Wheezing Loperamide Hcl (Imodium), 2 MG PO UD PRN for loose stools Lorazepam (Lorazepam), 0.5 MG PO BID PRN for Anxiety Polyethylene Glycol 3350 (Miralax), 17 GM PO DAILY PRN for Constipation Tramadol (Ultram), 50 MG PO Q8H PRN for Pain Allergies Coded Allergies: Duloxetine (Verified Adverse Reaction, Mild, DIZZINESS, 12/27/16) Indigotindisulfonate (Verified Adverse Reaction, Unknown, "spaced out", ) Physical Exam Vital Signs Date Time Temp Pulse Resp B/P Pulse Ox O2 Delivery O2 Flow Rate FiO2 01/14/17 17:28 37.2 74 20 147/46 96 Nasal Cannula 6.0 01/14/17 15:45 72 24 140/49 97 Nasal Cannula 6.0 01/14/17 13:25 94 Nasal Cannula 6.0 01/14/17 13:25 39.2 78 18 153/58 95 Nasal Cannula 6.0 01/14/17 13:25 94 Nasal Cannula 6.0 Physical Exam Constitutional: Vital signs reviewed. Eyes: Pupils are equal round reactive to light. Conjunctiva are noninjected. ENT: Pharynx is clear without erythema or exudate. Mucous membranes are moist. Neck supple without meningeal signs. Respiratory: Basilar rales at bases bilaterally, breath sound equal bilaterally. Cardiovascular: Regular rate and rhythm. No rubs or gallops. GI: Soft, nondistended and nontender. Bowel sounds are present. Musculoskeletal: No lower extremity tenderness. Left BKA. Integumentary: No cyanosis. Neurological: The patient is awake and alert. Somnolent but arousable, does not follow commands. Psychiatric: Unable to assess. Medical Decision & Procedures ER Provider Diagnostic Interpretation: Radiology results as stated below per my review and the radiologist's interpretation: CHEST ONE VIEW PORTABLE FINDINGS: Increase in right pleural effusion. Heart remains enlarged. Pulmonary vasculature is prominent. IMPRESSION: Congestive failure. Right pleural effusion progressive from the prior exam. Electronically signed by: Castillo Thompson M.D. 01/14/2017 1:55 PM Dictated Date/Time: 01/14/2017 1:[address] NONCONTRAST Findings: The paranasal sinuses and mastoid air cells are clear. The calvarium and skull base are intact. The ventricles and sulci are within normal limits. There is no mass, hematoma, midline shift, or acute infarct. Impression: No acute intracranial abnormality. Electronically signed by: Castillo Thompson M.D. 01/14/2017 2:22 PM Dictated Date/Time: 01/14/2017 2:21 PM Laboratory Results 01/14/17 13:40 Red Blood Count 3.22, Mean Corpuscular Volume 92.5, Mean Corpuscular Hemoglobin 28.9, Mean Corpuscular Hemoglobin Concent 31.2, Mean Platelet Volume 9.3, Neutrophils (%) (Auto) 80.4, Lymphocytes (%) (Auto) 8.7, Monocytes (%) (Auto) 8.6, Eosinophils (%) (Auto) 1.7, Basophils (%) (Auto) 0.2, Neutrophils # (Auto) 9.28, Lymphocytes # (Auto) 1.01, Monocytes # (Auto) 0.99, Eosinophils # (Auto) 0.20, Basophils # (Auto) 0.02 01/14/17 13:40 Test 01/14/17 13:36 01/14/17 13:40 01/14/17 13:51 01/14/17 15:45 White Blood Count 11.55 K/uL (4.8-10.8) Red Blood Count 3.22 M/uL (4.2-5.4) Hemoglobin 9.3 g/dL (12.0-16.0) Hematocrit 29.8 % (37-47) Mean Corpuscular Volume 92.5 fL (80-100) Mean Corpuscular Hemoglobin 28.9 pg (25-34) Mean Corpuscular Hemoglobin Concent 31.2 g/dl (32-36) Platelet Count 168 K/uL (130-400) Mean Platelet Volume 9.3 fL (7.4-10.4) Neutrophils (%) (Auto) 80.4 % Lymphocytes (%) (Auto) 8.7 % Monocytes (%) (Auto) 8.6 % Eosinophils (%) (Auto) 1.7 % Basophils (%) (Auto) 0.2 % Neutrophils # (Auto) 9.28 K/uL (1.4-6.5) Lymphocytes # (Auto) 1.01 K/uL (1.2-3.4) Monocytes # (Auto) 0.99 K/uL (0.11-0.59) Eosinophils # (Auto) 0.20 K/uL (0-0.5) Basophils # (Auto) 0.02 K/uL (0-0.2) RDW Standard Deviation 67.7 fL (36.4-46.3) RDW Coefficient of Variation 19.8 % (11.5-14.5) Immature Granulocyte % (Auto) 0.4 % Immature Granulocyte # (Auto) 0.05 K/uL (0.00-0.02) Anisocytosis PRESENT Prothrombin Time 14.0 SECONDS (9.0-12.0) Prothromb Time International Ratio 1.3 (0.9-1.1) Activated Partial Thromboplast Time 30.3 SECONDS (21.0-31.0) Partial Thromboplastin Ratio 1.2 Anion Gap 2.0 mmol/L (3-11) Est Creatinine Clear Calc Drug Dose 50.0 ml/min Estimated GFR () 58.1 Estimated GFR (Non- 50.1 BUN/Creatinine Ratio 35.0 (10-20) Calcium Level 8.6 mg/dl (8.5-10.1) Magnesium Level 2.2 mg/dl (1.8-2.4) Total Bilirubin 1.3 mg/dl (0.2-1) Aspartate Amino Transf (AST/SGOT) 22 U/L (15-37) Alanine Aminotransferase (ALT/SGPT) 24 U/L (12-78) Alkaline Phosphatase 206 U/L (45-117) Troponin I 0.042 ng/ml (0-0.045) Pro-B-Type Natriuretic Peptide 8235 pg/ml (0-900) Total Protein 6.2 gm/dl (6.4-8.2) Albumin 2.6 gm/dl (3.4-5.0) Globulin 3.6 gm/dl (2.5-4.0) Albumin/Globulin Ratio 0.7 (0.9-2) Bedside Lactic Acid Venous 1.26 mmol/L (0.90-1.70) Laboratory results as reviewed by me. Medications Administered Medications (Trade) Dose Ordered Sig/Hans Route Start Time Stop Time Status Last Admin Dose Admin Acetaminophen (Tylenol Supp) 650 mg STK-MED ONCE WV 01/14/17 13:30 01/14/17 13:31 DC 01/14/17 13:52 650 MG Furosemide (Lasix Inj) 40 mg NOW STAT IV 01/14/17 14:51 01/14/17 14:53 DC 01/14/17 15:42 40 MG Piperacillin Sod/ Tazobactam Sod (Zosyn Iv) 4.5 gm NOW STAT IV 01/14/17 14:54 01/14/17 14:55 DC 01/14/17 15:42 4.5 GM ECG Indication: SOB/dyspnea Rate (beats per minute): 83 Rhythm: atrial fibrillation Findings: T-wave inversion (1 and AVL), other (Bifasicular block) Comparison ECG Date: 29-DEC-2016 Change: no significant change ED Course 1348: The patient was evaluated in room A11B. A complete history and physical exam was performed. 1330: Acetaminophen 650mg WV. 1451: Lasix Inj 40mg IV. 1453: I spoke with Dr. Matthew of [facility]. We discussed the patient and his results. The patient will be further evaluated by Dr. Matthew. 1454: Zosyn IV 4.5gm IV. Medical Decision this is a 71-year-old female presents with change in mental status and shortness of breath with fever. Differential diagnosis includes CHF exacerbation, pulmonary edema, COPD exacerbation, pneumonia, sepsis. I did perform a limited focused review of portions of the patient's old chart on the electronic medical record. The patient was admitted on 12/27 and was discharged on 01/02. She was admitted for pneumonia, elevated troponin, pulmonary edema, and an acute kidney injury. She has A-Fib and is on Xarelto. She had diarrhea with negative C-Diff. I did evaluate the patient as noted above. I did obtain history from the patient as well as the nurse. IV access was established. The patient was placed on a continuous monitoring manager. I did order and personally review the patient's 12-lead EKG and chest x-ray as described above. She does have CHF on chest x-ray. She was given IV Lasix. She was given Tylenol for her fever. I did order and review the patient's blood work as noted in the electronic medical record. Her white blood cell count is slightly elevated. Lactic acid is not elevated. She is anemic. Flu swab is negative. I did reassess the patient. I did discuss the test results with her. I did recommend hospitalization. I did discuss case with the hospitalist and rn case management. Consults Time Called: 1450 Consulting Physician: Dr. Matthew - [facility] Returned Call: [phone] Matthew of [facility]. We discussed the patient and his results. The patient will be further evaluated by Dr. Matthew. Impression Primary Impression: CHF exacerbation Additional Impressions: Anemia Pleural effusion, right Fever Scribe Attestation The scribe's documentation has been prepared under my direct and personally reviewed by me in its entirety. I confirm that the note above accurately reflects all work, treatment, procedures, and medical decision making performed by me. Departure Information Dispostion Being Evaluated By Hospitalist Referrals RealMadhav (PCP) Patient Instructions My [facility] Problem Qualifiers Primary Impression: CHF exacerbation Congestive heart failure type: unspecified congestive heart failure type Qualified Codes: I50.9 - Heart failure, unspecified Additional Impressions: Anemia Anemia type: unspecified type Qualified Codes: D64.9 - Anemia, unspecified Fever Fever type: unspecified Qualified Codes: R50.9 - Fever, unspecified
[2017-01-14 18:20] VITALS: BP 149/64; PULSE 72; TEMP 36.8; BMI 36.2
[2017-01-14] MEDS ORDERED: PIPERACILL/TAZOBAC CONSULT ACTIVE PRN (18:45)
[2017-01-14] MEDS ORDERED: VANCOMYCIN CONSULT ACTIVE PRN (19:00)
[2017-01-14] MEDS: HYDROCODONE/ACETAMOPHEN 5/325MG TAB PO PRN (19:12)
[2017-01-14] MEDS: LACTOBACILLUS ACIDOPHILUS (FLORANEX) TAB PO SCH (19:14)
[2017-01-14] MEDS: RIVAROXABAN 20 MG TAB PO SCH (19:14)
[2017-01-14] MEDS: DIGOXIN 0.25 MG TAB PO SCH (19:14)
[2017-01-14] MEDS: FUROSEMIDE INJ 40 MG in SYRINGE 0 ML IV SCH (19:16)
[2017-01-14] MEDS ORDERED: VANCOMYCIN INJ 2,300 MG in SODIUM CHLORIDE 0.9% 500ML 500 ML IV SCH (19:30)
[2017-01-14 20:00] VITALS: PULSE 84; O2SAT 95
[2017-01-14] MEDS: ALBUT/IPRATROP 3MG/0.5MG NEB 3 ML VIAL INH SCH (20:00)
[2017-01-14 20:08] LABS: URINE APPEARANCE CLEAR (CLEAR); URINE BILIRUBIN NEG (NEG); URINE COLOR YELLOW; URINE EPITHELIAL CELL AUTO 20-30 /lpf (0-5); URINE NITRITE NEG (NEG); URINE SPECIFIC GRAVITY 1.013 (1.000-1.030); UROBILINOGEN NEG (NEG)
[2017-01-14 20:11] LABS: MANUAL MICROSCOPIC REQUIRED? NO; REVIEW REQ? YES
--- NOTE | 2017-01-14 20:35 | Pharmacy Progress Note ---
Pharmacy Antibiotic Consult Date of Service: January 14, 2017. Pharmacy Dosing Scope Pharmacy is consulted to initiate Vancomycin and Zosyn IV dosing therapies for altered mental status - most likely pulmonary source infection, order appropriate labs and adjust drug dose/frequency. Subjective The patient is a 71 year old female admitted on January 14, 2017 at 16:02. Objective Height (Feet): 5 Height (Inches): 3.00 Weight (Kilograms): 92.700 Lab Results (24hrs): Test 01/14/17 13:40 01/14/17 13:51 01/14/17 15:45 01/14/17 19:50 White Blood Count 11.55 K/uL (4.8-10.8) Red Blood Count 3.22 M/uL (4.2-5.4) Hemoglobin 9.3 g/dL (12.0-16.0) Hematocrit 29.8 % (37-47) Mean Corpuscular Volume 92.5 fL (80-100) Mean Corpuscular Hemoglobin 28.9 pg (25-34) Mean Corpuscular Hemoglobin Concent 31.2 g/dl (32-36) Platelet Count 168 K/uL (130-400) Mean Platelet Volume 9.3 fL (7.4-10.4) Neutrophils (%) (Auto) 80.4 % Lymphocytes (%) (Auto) 8.7 % Monocytes (%) (Auto) 8.6 % Eosinophils (%) (Auto) 1.7 % Basophils (%) (Auto) 0.2 % Neutrophils # (Auto) 9.28 K/uL (1.4-6.5) Lymphocytes # (Auto) 1.01 K/uL (1.2-3.4) Monocytes # (Auto) 0.99 K/uL (0.11-0.59) Eosinophils # (Auto) 0.20 K/uL (0-0.5) Basophils # (Auto) 0.02 K/uL (0-0.2) RDW Standard Deviation 67.7 fL (36.4-46.3) RDW Coefficient of Variation 19.8 % (11.5-14.5) Immature Granulocyte % (Auto) 0.4 % Immature Granulocyte # (Auto) 0.05 K/uL (0.00-0.02) Anisocytosis PRESENT Prothrombin Time 14.0 SECONDS (9.0-12.0) Prothromb Time International Ratio 1.3 (0.9-1.1) Activated Partial Thromboplast Time 30.3 SECONDS (21.0-31.0) Partial Thromboplastin Ratio 1.2 Sodium Level 142 mmol/L (136-145) Potassium Level 5.2 mmol/L (3.5-5.1) Chloride Level 106 mmol/L (98-107) Carbon Dioxide Level 34 mmol/L (21-32) Anion Gap 2.0 mmol/L (3-11) Blood Urea Nitrogen 39 mg/dl (7-18) Creatinine 1.10 mg/dl (0.60-1.20) Est Creatinine Clear Calc Drug Dose 50.0 ml/min Estimated GFR () 58.1 Estimated GFR (Non- 50.1 BUN/Creatinine Ratio 35.0 (10-20) Random Glucose 265 mg/dl (70-99) Calcium Level 8.6 mg/dl (8.5-10.1) Magnesium Level 2.2 mg/dl (1.8-2.4) Total Bilirubin 1.3 mg/dl (0.2-1) Aspartate Amino Transf (AST/SGOT) 22 U/L (15-37) Alanine Aminotransferase (ALT/SGPT) 24 U/L (12-78) Alkaline Phosphatase 206 U/L (45-117) Troponin I 0.042 ng/ml (0-0.045) Pro-B-Type Natriuretic Peptide 8235 pg/ml (0-900) Total Protein 6.2 gm/dl (6.4-8.2) Albumin 2.6 gm/dl (3.4-5.0) Globulin 3.6 gm/dl (2.5-4.0) Albumin/Globulin Ratio 0.7 (0.9-2) Bedside Lactic Acid Venous 1.26 mmol/L (0.90-1.70) Influenza Type A (RT-PCR) Neg for Influ A (NEG) Influenza Type B (RT-PCR) Neg for Influ B (NEG) Urine Color YELLOW Urine Appearance CLEAR (CLEAR) Urine pH 5.0 (4.5-7.5) Urine Specific [place] 1.013 (1.000-1.030) Urine Protein NEG (NEG) Urine Glucose (UA) NEG (NEG) Urine Ketones NEG (NEG) Urine Occult Blood NEG (NEG) Urine Nitrite NEG (NEG) Urine Bilirubin NEG (NEG) Urine Urobilinogen NEG (NEG) Urine Leukocyte Esterase NEG (NEG) Urine WBC (Auto) 1-5 /hpf (0-5) Urine RBC (Auto) 0-4 /hpf (0-4) Urine Hyaline Casts (Auto) 1-5 /lpf (0-5) Urine Epithelial Cells (Auto) 20-30 /lpf (0-5) Urine Bacteria (Auto) NEG (NEG) Urine Pathogenic Casts /lpf (0) Micro Results: Item Value Date Time Urine Culture Received 01/14/17 1950 Urine,Catheterized Pending MRSA DNA Surveillance Screen Received 01/14/17 1848 Nasal Pending Blood Culture Received 01/14/17 1340 Blood Pending Blood Culture Received 01/14/17 1340 Blood Pending Recent Pertinent Medications Item Value Date Time Piperacillin Sod/ 4.5 gm 01/14/17 1454 Tazobactam Sod NOW STAT/IV 01/14/17 1542 (Zosyn Iv) x 1 dose in the ED Assessment & Plan Pharmacy has been consulted to dose and monitor Vancomycin and Zosyn therapies for altered mental status, most likely resulting from a pulmonary infection, in an obese patient (BMI greater than 35kg/m2, BMI= 36.2kg/m2). The patient is at a greater risk for infection since she is a skilled nursing resident, was recently hospitalized (last [facility] admission around 01/04/17), and is also a below- the-knee amputee. VANCOMYCIN Loading dose: Vancomycin 2300 mg (~25mg/kg) IV X 1 dose then: Vancomycin 1300 mg (~14mg/kg) IV every 18 hours. * Estimated P'Kinetic levels: ke= 0.0459/hr, t1/2= 15 hr * Dose based on previous admission data where the patient exhibited similar p' kinetics * Goal trough level estimate: between 15 - 20 mcg/mL. * Trough level has been ordered for: ~30 minutes before the 0200 dose. ZOSYN * Zosyn 4.5gm IV x 1 dose then: * Zosyn 4.5gm IV every 8 hours extended infusion for a pulmonary infection, obesity, and CrCl greater than 20mL/min (CrCl~ 50mL/min). Pharmacy will continue to follow and will adjust dose/frequency as necessary. Thank you
[2017-01-14] MEDS ORDERED: PNEUMOCOCCAL POLYSACCHARIDES 25 MCG/0.5 ML VIAL/SYR IM. ONE (21:00)
[2017-01-14] MEDS ORDERED: VANCOMYCIN INJ 1,000 MG in SODIUM CHLORIDE 0.9% 250ML 250 ML IV SCH (21:00)
[2017-01-14] MEDS ORDERED: PNEUMOCOCCAL ADMINISTRATION CHARGE ONE (21:00)
[2017-01-14] MEDS ORDERED: PIPERACILL/TAZOBAC IV 3.375 GM in DEXTROSE 5% 100ML 100 ML IV SCH (21:00)
[2017-01-14] MEDS: FLUTICASONE/SALMETEROL 250/50 (ADVAIR) 14 PUFF/1 INHALER INH SCH (21:36)
[2017-01-14] MEDS: GABAPENTIN 300 MG CAP PO SCH (21:37)
[2017-01-14] MEDS: ASCORBIC ACID 500 MG TAB PO SCH (21:37)
[2017-01-14] MEDS: MAGNESIUM OXIDE 400 MG TAB PO SCH (21:37)
[2017-01-14] MEDS: FERROUS SULFATE 325 MG TAB PO SCH (21:37)
[2017-01-14] MEDS: PIPERACILL/TAZOBAC IV 4.5 GM in DEXTROSE 5% 100ML IV SCH (21:57)
[2017-01-14 23:44] VITALS: BP 156/65; PULSE 73; TEMP 37.6; O2SAT 98
[2017-01-15] VITALS (15 sets, daily range): BP systolic 128–149; BP diastolic 56–65; PULSE 66–87; TEMP 37.1–38.3; O2SAT 93–100; Ht 160 cm; Wt 85.5 kg
[2017-01-15] MEDS: ACETAMINOPHEN 325 MG TAB PO PRN ×2 (00:13→12:06)
[2017-01-15] MEDS ORDERED: ALBUMIN 25% 50 ML with FUROSEMIDE INJ 40 MG IV STA ×2 (03:28)
[2017-01-15] MEDS ORDERED: FUROSEMIDE 40 MG/4 ML VIAL ONE (03:29)
[2017-01-15] MEDS ORDERED: NURSING VERBAL MED ORDER ONE ×3 (03:30→21:00)
[2017-01-15] MEDS ORDERED: MoRPHine SULFATE 10 MG/ML CARP/VIAL ONE (03:37)
[2017-01-15] MEDS ORDERED: MoRPHine SULFATE 2 MG/ML CARP ONE ×2 (03:39→04:16)
[2017-01-15 03:59] LABS: HEMATOCRIT 30.9 % (37-47); MEAN CELL VOLUME 93.9 fL (80-100); MEAN CORPUSCULAR HEMOGLOBIN 29.5 pg (25-34); MEAN CORPUSCULAR HGB CONC 31.4 g/dl (32-36); MEAN PLATELET VOLUME 9.4 fL (7.4-10.4); PLATELET COUNT 171 K/uL (130-400); RED BLOOD COUNT 3.29 M/uL (4.2-5.4)
[2017-01-15 04:02] LABS: ALLEN TEST POS (POS); ARTERIAL BLOOD GAS HCO3 32 mmol/L (19-24); ARTERIAL BLOOD GAS PO2 72 mm/Hg (80-95); ARTERIAL BLOOD GAS pH 7.33 (7.35-7.45); O2 ADMINISTRATION 6L
[2017-01-15 04:18] LABS: BLOOD UREA NITROGEN 38 mg/dl (7-18); BUN/CREATININE RATIO 34.7 (10-20); CALCIUM 8.6 mg/dl (8.5-10.1); CARBON DIOXIDE 36 mmol/L (21-32); CHLORIDE 105 mmol/L (98-107); GLUCOSE 316 mg/dl (70-99); POTASSIUM 4.6 mmol/L (3.5-5.1); SODIUM 142 mmol/L (136-145)
[2017-01-15] MEDS: PIPERACILL/TAZOBAC IV 4.5 GM in DEXTROSE 5% 100ML IV SCH ×3 (05:42→21:35)
[2017-01-15] MEDS: LEVOTHYROXINE 200 MCG TAB PO SCH (05:43)
[2017-01-15] MEDS: LEVOTHYROXINE 50 MCG TAB PO SCH (05:44)
[2017-01-15] MEDS ORDERED: DEXTROSE 50% 50 ML SYR IV PRN (06:00)
[2017-01-15] MEDS ORDERED: GLUCAGON FOR INJ 1 MG VIAL SQ PRN (06:00)
[2017-01-15] MEDS ORDERED: GLUCOSE 40% GEL 15 GM TUBE PO PRN (06:00)
[2017-01-15] MEDS ORDERED: GLUCOSE 10 TABS/TUBE PO PRN (06:00)
[2017-01-15] MEDS: ALBUT/IPRATROP 3MG/0.5MG NEB 3 ML VIAL INH SCH ×4 (07:24→19:59)
[2017-01-15] MEDS: TIOTROPIUM BROMIDE 5 PUFF/90 MCG INH INH SCH (08:00)
[2017-01-15] MEDS: LACTOBACILLUS ACIDOPHILUS (FLORANEX) TAB PO SCH ×3 (08:00→17:00)
[2017-01-15] MEDS: FLUTICASONE/SALMETEROL 250/50 (ADVAIR) 14 PUFF/1 INHALER INH SCH ×2 (08:00→19:39)
[2017-01-15] MEDS: FERROUS SULFATE 325 MG TAB PO SCH ×2 (08:03→19:40)
[2017-01-15] MEDS: PANTOprazole SOD 40 MG TAB PO SCH (08:04)
[2017-01-15] MEDS: MAGNESIUM OXIDE 400 MG TAB PO SCH ×2 (08:04→19:39)
[2017-01-15] MEDS: ASCORBIC ACID 500 MG TAB PO SCH ×2 (08:04→19:40)
[2017-01-15] MEDS: INSULIN ASPART 100 UNITS/ML 3 ML PEN SC SCH ×4 (08:06→22:39)
[2017-01-15] MEDS: FUROSEMIDE INJ 40 MG in SYRINGE 0 ML IV SCH ×2 (08:11→17:08)
--- NOTE | 2017-01-15 08:23 | DIAGNOSTIC IMAGING REPORT ---
CHEST ONE VIEW PORTABLE HISTORY: Respiratory distress. Difficulty breathing. COMPARISON: Chest 01/14/2017. FINDINGS: No pneumothorax. Moderate right pleural effusion has slightly decreased in size. The heart remains enlarged. Small left pleural effusion persist. Mild pulmonary edema has slightly improved. IMPRESSION: Interval improvement in the pulmonary edema and moderate right pleural effusion. Small left pleural effusion persists. Electronically signed by: Alexander Herman M.D. 01/15/2017 8:21 AM Dictated Date/Time: 01/15/2017 8:20 AM
[2017-01-15] MEDS ORDERED: SPIRONOLACTONE 25 MG TAB PO SCH (09:00)
--- NOTE | 2017-01-15 10:08 | Clinical Documentation Query ---
QUERY 1 OF [address] JELENA BISHOP, In your clinical opinion is this patient being managed for: ( X ) Acute respiratory failure ( ) Other explanation of clinical findings (Please Explain) ( ) Unable to determine (Please Define) ( ) Need to Discuss ( ) Not Agree The medical record reflects the following clinical findings, treatment, and risk factors. Clinical Indicators: 71 yo female presenting with sepsis, acute on chronic diastolic CHF. Placed on O2 support 6L (sat 94%). Per nursing documentation from 3 AM, pt reporting she is unable to breathe. O2 sat 89%, down to 60% . Placed on NRB mask. (O2 sats remained in 60's%). Code purple called Treatment: BIPAP, IV lasix, IV albumin, ABG's, tele, EKG, stat CXR Risk Factors: age, sepsis, acute diastolic CHF, QUERY 2 OF 2 In your clinical opinion is this patient being managed for: ( X ) Metabolic encephalopathy ( ) Other explanation of clinical findings (Please Explain) ( ) Unable to determine (Please Define) ( ) Need to Discuss ( ) Not Agree The medical record reflects the following clinical findings, treatment, and risk factors. Clinical Indicators: Presented with altered mental status x 24 hours at [facility]. Somnolent and not following commands. Reportedly febrile, receiving antibiotics and lasix as outpatient. CT head showed no acute abnormality. WBC 11.55, BUN 39, glucose 265, BNP 8235, O2 sat 94% on 6L. T 39.2 R Treatment: tele, O2 support, IV zosyn, IV lasix, APAP Risk Factors: age, sepsis, acute diastolic CHF Please clarify and document your clinical opinion in the progress notes and discharge summary. Terms such as "probable", "suspected", "likely", "questionable", "possible", or "still to be ruled out" are acceptable. IF IN AGREEMENT, YOU MUST DOCUMENT ABOVE DIAGNOSTIC STATEMENT IN DAILY PROGRESS NOTES AND DISCHARGE SUMMARY. This document is not part of the patient's record. Thank You, Samina Granados, RN [phone]
[2017-01-15] MEDS: DULOXETINE HCL 20 MG CAP PO SCH (12:05)
[2017-01-15] MEDS: VANCOMYCIN INJ 1,300 MG in SODIUM CHLORIDE 0.9% 250ML 250 ML IV SCH (14:06)
[2017-01-15] MEDS ORDERED: PHARMACY GLYCEMIC MGMT CONSULT PRN (15:15)
[2017-01-15] MEDS ORDERED: INSULIN GLARGINE SOLOSTAR 100 UNITS/ML 3 ML PEN SC ONE (15:15)
--- NOTE | 2017-01-15 15:21 | Pharmacy Progress Note ---
Glycemic Control Intl Consult Date of Service January 15, 2017. Scope Glycemic Pharmacist consulted by Dr Williamson on 01/15/17 for glycemic control and to write orders per [facility] inpatient glycemic control protocol. Objective Weight (Kilograms): 92.700 Accuchecks BSG (last 24hrs): Test 01/15/17 03:19 01/15/17 03:50 01/15/17 07:26 01/15/17 11:38 Bedside Glucose 308 mg/dl (70-90) 322 mg/dl (70-90) 280 mg/dl (70-90) Random Glucose 316 mg/dl (70-99) Laboratory Data (last 24hrs) Test 01/15/17 03:50 Anion Gap 1.0 mmol/L BUN/Creatinine Ratio 34.7 Blood Urea Nitrogen 38 mg/dl Creatinine 1.10 mg/dl Potassium Level 4.6 mmol/L Sodium Level 142 mmol/L White Blood Count 12.00 K/uL Recent Pertinent Medications Outpatient Anti-diabetic Regimen: * Novolog ACHS * A1c = 5.3% 09/20/16 -- current A1c pending with tomorrow's am labs Risk Factors for Insulin Resistance: * Steroids: n/a * Infection: Zosyn/Vanc/Cipro for AMS, ?pnx vs COPD exac * IVF: Lasix IVP * Diet: Type 2 diabetic, AHA Assessment & Plan ASSESSMENT: * ADA & AACE recommend a goal blood sugar range 140-180 mg/dl for the majority of critically ill & non-critically ill patients. However, more stringent targets may be selected in individual cases. 01/15/17: * Patient is a 71yo diabetic female admitted with altered mental status and fever (?pnx vs COPD exacerbation). * Patient is known to glycemic service from past admissions. Insulin needs have been difficult to determine in the past. * For now, will give one time dose of Lantus and re-assess in the morning. * Novolog parameters appear to be appropriate, based on past admissions. Will re-evaluate and adjust as needed tomorrow. PLAN FOR INPATIENT GLYCEMIC CONTROL: * Basal insulin with LANTUS 20 units SQ x1 dose now * Correctional Insulin with NOVOLOG per scale ACHS or Q6hrs while NPO * Goal Range: Low 140 mg/dL - High 180 mg/dL * Correction Factor: 25 mg/dL/unit * Nutritional / Prandial insulin per carb ratio of 1 unit per 8 grams CHO consumed * Please note that the plan above was derived based on current level of insulin resistance and hospital stress. These recommendations are appropriate for inpatient admission only. Plan of care upon discharge will need to be reassessed to avoid potential outpatient hypo/hyperglycemia. Thank you.
--- NOTE | 2017-01-15 16:42 | Progress Note ---
Subjective Date of Service: January 15, 2017. Subjective Pt evaluation today including: conversation w/ patient, physical exam, chart review, lab review, review of studies, review of inpatient medication list Problem List Medical Problems: (1) Atrial fibrillation Status: Acute (2) Bifascicular block Status: Acute (3) Cellulitis of both lower extremities Status: Acute (4) Cellulitis of foot, left Status: Acute (5) Cellulitis of left lower leg Status: Acute (6) CHF (congestive heart failure) Status: Acute (7) CHF exacerbation Status: Acute (8) Constipation Status: Acute (9) Diabetic foot ulcer Status: Acute (10) Electrolyte abnormality Status: Acute (11) Fever Status: Acute (12) Hyperkalemia Status: Acute (13) Hypokalemia Status: Acute (14) Leukocytosis Status: Acute (15) Pleural effusion, right Status: Acute (16) Sepsis Status: Acute (17) Sepsis Status: Acute (18) UTI (urinary tract infection) Status: Acute (19) UTI (urinary tract infection) Status: Acute Review of Systems ROS is unobtainable due to change in her mental status / confusion Medications Current Inpatient Medications Medications (Trade) Dose Ordered Sig/Hans Route Start Time Stop Time Status Last Admin Dose Admin Acetaminophen (Tylenol Tab) 650 mg Q4H PRN PO 01/14/17 16:00 02/13/17 15:59 01/15/17 12:06 650 MG Al Hydrox/Mg Hydrox/Simethicone (Maalox Max Susp) 15 ml Q4H PRN PO 01/14/17 16:00 02/13/17 15:59 Magnesium Hydroxide (Milk Of Magnesia Susp) 30 ml Q12H PRN PO 01/14/17 16:00 02/13/17 15:59 Ondansetron HCl (Zofran Inj) 4 mg Q6H PRN IV 01/14/17 16:00 02/13/17 15:59 Nitroglycerin (Nitrostat Tab) 0.4 mg UD PRN SL 01/14/17 16:00 02/13/17 15:59 Polyethylene 17 gm 17 gm DAILY PRN PO 01/14/17 16:00 02/13/17 15:59 Furosemide/Syringe (Lasix Inj/ Syringe) 4 ml @ 4 mls/min BID17 IV 01/14/17 19:00 02/13/17 18:59 01/15/17 08:11 4 MLS/MIN Ascorbic Acid (Vitamin C Tab) 500 mg BID PO 01/14/17 21:00 02/13/17 20:59 Digoxin (Lanoxin Tab) 0.25 mg DAILY@16 PO 01/14/17 16:00 02/13/17 15:59 01/14/17 19:14 0.25 MG Duloxetine HCl (Cymbalta Cap) 20 mg QAM PO 01/15/17 09:00 02/14/17 08:59 01/15/17 12:05 20 MG Ferrous Sulfate (Feosol Tab) 325 mg BID PO 01/14/17 21:00 02/13/17 20:59 Salmeterol Xinafoate/ Fluticasone (Advair Diskus 250/50 Inh) 1 puff BID INH 01/14/17 21:00 02/13/17 20:59 01/15/17 08:00 1 PUFF Gabapentin (Neurontin Cap) 300 mg HS PO 01/14/17 21:00 02/13/17 20:59 Acetaminophen/ Hydrocodone Bitart ([place] 5/325 Tab) 1 tab Q6H PRN PO 01/14/17 16:00 01/28/17 15:59 01/14/17 19:12 1 TAB Lactobacillus Acidophilus (Floranex Tab) 2 tab TIDM PO 01/14/17 18:00 02/13/17 17:59 01/14/17 19:14 2 TAB Levothyroxine Sodium (Synthroid Tab) 50 mcg DAILYBB PO 01/15/17 06:30 02/14/17 06:59 01/15/17 05:44 50 MCG Levothyroxine Sodium (Synthroid Tab) 200 mcg DAILYBB PO 01/15/17 06:30 02/14/17 06:59 01/15/17 05:43 200 MCG Loperamide HCl (Imodium Cap) 2 mg UD PRN PO 01/14/17 16:00 02/13/17 15:59 Lorazepam (Ativan Tab) 0.5 mg BID PRN PO 01/14/17 16:00 02/13/17 15:59 Magnesium Oxide (Mag-Ox Tab) 400 mg BID PO 01/14/17 21:00 02/13/17 20:59 Rivaroxaban (Xarelto Tab) 20 mg QDD PO 01/14/17 19:00 02/13/17 18:59 01/14/17 19:14 20 MG Tiotropium [place] (Spiriva Handihaler Inhaler) 1 puff DAILY INH 01/15/17 09:00 02/14/17 08:59 01/15/17 08:00 1 PUFF Tramadol HCl (Ultram Tab) 50 mg Q8H PRN PO 01/14/17 16:00 02/13/17 15:59 Pantoprazole Sodium (Protonix Tab) 40 mg QAM PO 01/15/17 09:00 02/14/17 08:59 Albuterol/ Ipratropium (Duoneb) 3 ml QIDR INH 01/14/17 16:00 02/13/17 15:59 01/15/17 15:00 3 ML Piperacillin Sod/ Tazobactam Sod 1 ea 1 ea UD PRN N/A 01/14/17 18:45 02/13/17 18:44 Piperacillin Sod/ Tazobactam Sod/ Dextrose (Zosyn Iv/D5 100ml) 120 ml @ 30 mls/hr Q8H IV 01/14/17 22:00 01/21/17 13:59 01/15/17 14:03 30 MLS/HR Vancomycin HCl 1 ea 1 ea UD PRN N/A 01/14/17 19:00 02/13/17 18:59 Vancomycin HCl/ Sodium Chloride (Vancomycin Inj/ Nss 250ml) 276 ml @ 125 mls/hr Q18H IV 01/15/17 14:00 01/21/17 19:59 01/15/17 14:06 125 MLS/HR Insulin Aspart (novoLOG ASPART) SLIDING SCALE If C... Q6H SC 01/15/17 06:00 02/14/17 05:59 01/15/17 12:11 4 UNITS Glucose (Glucose 40% Gel) 15-30 GRAMS 15 GRAMS... UD PRN PO 01/15/17 06:00 02/14/17 05:59 Glucose (Glucose Chew Tab) 4-8 Tablets 4 Tabl... UD PRN PO 01/15/17 06:00 02/14/17 05:59 Dextrose (Dextrose 50% 50ML Syringe) 25-50ML OF 50% DW IV FOR... UD PRN IV 01/15/17 06:00 02/14/17 05:59 Glucagon (Glucagon Inj) 1 mg UD PRN SQ 01/15/17 06:00 02/14/17 05:59 Miscellaneous Information (Consult Glycemic Management Pharmacy) 1 ea UD PRN N/A 01/15/17 15:15 02/14/17 15:14 Objective Vital Signs Date Time Temp Pulse Resp B/P Pulse Ox O2 Delivery O2 Flow Rate FiO2 01/15/17 15:23 37.4 81 22 145/56 98 Nasal Cannula 6.0 01/15/17 15:00 67 24 99 Nasal Cannula 6.0 01/15/17 13:15 37.1 01/15/17 12:00 Nasal Cannula 5.0 01/15/17 11:54 38.3 70 22 145/62 100 BiPAP 5.0 01/15/17 11:50 67 99 6.0 01/15/17 11:49 67 24 96 BiPAP/CPAP 6.0 01/15/17 08:00 BiPAP 6.0 01/15/17 07:24 67 96 6.0 01/15/17 07:24 67 24 96 BiPAP/CPAP 6.0 01/15/17 06:53 37.3 67 20 128/62 95 CPAP 5.0 01/15/17 04:08 87 22 93 BiPAP/CPAP 6.0 01/15/17 04:03 87 94 6.0 01/15/17 04:00 97 CPAP 5.0 01/15/17 00:05 95 Nasal Cannula 5.0 01/14/17 23:44 37.6 73 18 156/65 98 Nasal Cannula 5.0 01/14/17 20:00 84 18 95 Nasal Cannula 5.0 01/14/17 19:14 72 01/14/17 18:20 36.8 72 20 149/64 Nasal Cannula 5.0 01/14/17 18:17 74 22 149/44 97 01/14/17 17:28 37.2 74 20 147/46 96 Nasal Cannula 6.0 Physical Exam General Appearance: + mild distress Eyes: normal inspection, EOMI ENT: normal ENT inspection Neck: supple Respiratory/Chest: + respiratory distress, + decreased breath sounds, + crackles Cardiovascular: regular rate, rhythm, no edema Abdomen: normal bowel sounds, non tender, soft, no organomegaly Extremities: normal range of motion, non-tender, normal inspection, + pertinent finding (left BKA) Neurologic/Psychiatric: 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 as tested, + pertinent finding (drowsy/ lethargic, oriented to persons, moves all ext) Skin: + pertinent finding (left BKA stump tender and erythamatous, also has decubitus ulcer stage 3 POA) Laboratory Results Last 24 Hours Test 01/14/17 19:50 01/14/17 21:28 01/15/17 03:19 01/15/17 03:50 Urine Color YELLOW Urine Appearance CLEAR Urine pH 5.0 Urine Specific [place] 1.013 Urine Protein NEG Urine Glucose (UA) NEG Urine Ketones NEG Urine Occult Blood NEG Urine Nitrite NEG Urine Bilirubin NEG Urine Urobilinogen NEG Urine Leukocyte Esterase NEG Urine WBC (Auto) 1-5 /hpf Urine RBC (Auto) 0-4 /hpf Urine Hyaline Casts (Auto) 1-5 /lpf Urine Epithelial Cells (Auto) 20-30 /lpf Urine Bacteria (Auto) NEG Urine Pathogenic Casts /lpf Creatine Kinase MB 0.7 ng/ml < 0.5 ng/ml Creatine Kinase MB Ratio Troponin I 0.032 ng/ml 0.027 ng/ml Bedside Glucose 308 mg/dl White Blood Count 12.00 K/uL Red Blood Count 3.29 M/uL Hemoglobin 9.7 g/dL Hematocrit 30.9 % Mean Corpuscular Volume 93.9 fL Mean Corpuscular Hemoglobin 29.5 pg Mean Corpuscular Hemoglobin Concent 31.4 g/dl RDW Standard Deviation 67.4 fL RDW Coefficient of Variation 19.7 % Platelet Count 171 K/uL Mean Platelet Volume 9.4 fL Arterial Blood pH 7.33 Arterial Blood Partial Pressure CO2 63 mmHg Arterial Blood Partial Pressure O2 72 mm/Hg Arterial Blood HCO3 32 mmol/L Arterial Blood Oxygen Saturation 93.0 % Arterial Blood Base Excess 5.0 mEq/L Arterial Blood Gas Delivery 6L Bernard Test POS Sodium Level 142 mmol/L Potassium Level 4.6 mmol/L Chloride Level 105 mmol/L Carbon Dioxide Level 36 mmol/L Anion Gap 1.0 mmol/L Blood Urea Nitrogen 38 mg/dl Creatinine 1.10 mg/dl Est Creatinine Clear Calc Drug Dose 50.0 ml/min Estimated GFR () 58.1 Estimated GFR (Non- 50.1 BUN/Creatinine Ratio 34.7 Random Glucose 316 mg/dl Calcium Level 8.6 mg/dl Beta-Hydroxybutyric Acid 4.80 mg/dL Test 01/15/17 07:26 01/15/17 11:38 01/15/17 16:14 01/15/17 16:15 Bedside Glucose 322 mg/dl 280 mg/dl Assessment and Plan 71 y/o female, with PMHx of Diabetic foot ulcer s/p left BKA, diastolic CHF, a.fib, hypothyroidism, COPD, anxiety/depression, and GERD, who presented to the ED from [place] [place] because of AMS. CXR at [facility] on 01/13 showed right lower lung pneumonia and pulmonary edema; patient was treated with Levaquin and Lasix. However, patient's status continued to worsen. currently has SOB and fever. Acute hypoxic respiratory failure Multilobar pneumonia (likely HCAP) Metabolic encephalopathy Acute COPD exacerbation Acute on chronic diastolic CHF B/L pleural effusion left BKA stump erythema and tenderness Decubitus ulcer stage 3 POA CAD/HTN/A.Fib/DMII/Hypothyroidism plan: continue tele for cardiac monitoring continue IV Vancomycin and Zosyn / consult ID CT chest without contrast to evaluate the extent of any consolidation underneath the pleural effusion repeat renal function stat then in am / if normal will get CT scan left stump with contrast in am to R/O abscess (will not order it now, will let morning physician do if creatinine in am remains stable) MRSA swab positive Influenza swab negative Sputum Cx / UCx and BCx pending procalcitonin DuoNebs QID and q2 hrs PRN BIPAP prn O2 protocol, wean as tolerated- wears 2L at all times CT head was normal TSH was recently normal (12/2016) consult print color operator for potential taping continue IV Lasix 40 mg BID- hold Lasix 40 mg PO Monitor I&Os and daily weights Johnston placed - ECHO 12/30/16: * There is borderline concentric left ventricular hypertrophy. * Left ventricular systolic function is normal. * The left atrium is severely dilated. * The right atrium is moderately dilated. * There is mild mitral regurgitation. * Right ventricular systolic pressure is elevated at 30-40mmHg. continue sliding insulin scale coverage Continue Digoxin 125 mcg by mouth daily, Cardizem-CD 240 mg daily, and Xarelto 20 mg daily Continue Mag oxide 400 mg twice a day- mag level WNL Continue Levothyroxine 250 mcg by mouth daily Continue Advair 250/50 inhalation twice a day, Spiriva Continue Cymbalta 20 mg daily DVT prophylaxis: Xarelto Code Status: LEVEL V, DNR Dispo: - From [place] - PT/OT consulted - financial services manager consulted
[2017-01-15] MEDS: DIGOXIN 0.25 MG TAB PO SCH (17:04)
[2017-01-15] MEDS: RIVAROXABAN 20 MG TAB PO SCH (17:04)
[2017-01-15 17:05] LABS: BUN/CREATININE RATIO 33.1 (10-20); CALCIUM 8.7 mg/dl (8.5-10.1); CREATININE 1.1 mg/dl (0.60-1.20); POTASSIUM 4.1 mmol/L (3.5-5.1)
--- NOTE | 2017-01-15 18:18 | DIAGNOSTIC IMAGING REPORT ---
CHEST CT WITHOUT CONTRAST CT DOSE: 772.07 mGy.cm HISTORY: Dyspnea. Chest pain. severe SOB with pleural effusion TECHNIQUE: Multiaxial CT images of the chest were performed without contrast. COMPARISON: 12/30/2016 FINDINGS: Bilateral pleural effusions. This is somewhat increased in volume from the prior study. Bilateral lower lobe atelectatic change. Bilateral upper lobe infiltrative changes again noted and appears to be similar compared to the prior study. Atherosclerotic change thoracic aorta. Moderate cardiomegaly. Mild splenomegaly stable from the prior study. IMPRESSION: 1. Similar CT compared to the prior study of 12/30/2016. 2. Moderate cardiomegaly, bilateral pleural effusions, and basilar atelectatic/plan loss change. 3. Patchy parenchymal infiltrative change in the upper lung regions bilaterally versus congestive failure/pulmonary edematous change. Electronically signed by: Castillo Thompson M.D. 01/15/2017 6:17 PM Dictated Date/Time: 01/15/2017 6:15 PM
[2017-01-15] MEDS ORDERED: NURSING DECISION MEDICATION ORDER SCH (18:45)
[2017-01-15] MEDS: GABAPENTIN 300 MG CAP PO SCH (19:40)
[2017-01-15] MEDS: MICONAZOLE NITRATE POWDER 43 GM EXT PRN (21:02)
[2017-01-16] VITALS (11 sets, daily range): BP systolic 125–161; BP diastolic 51–63; PULSE 56–78; TEMP 36.7–37.5; O2SAT 91–100
[2017-01-16] MEDS: PIPERACILL/TAZOBAC IV 4.5 GM in DEXTROSE 5% 100ML IV SCH ×3 (05:43→21:45)
[2017-01-16] MEDS: LEVOTHYROXINE 50 MCG TAB PO SCH (05:43)
[2017-01-16] MEDS: LEVOTHYROXINE 200 MCG TAB PO SCH (05:43)
[2017-01-16] MEDS ORDERED: CIPROFLOXACIN IV SCH (06:00)
[2017-01-16] MEDS ORDERED: D5W IV SCH (06:00)
[2017-01-16 06:06] LABS: HEMATOCRIT 28.8 % (37-47); MEAN CELL VOLUME 93.2 fL (80-100); MEAN CORPUSCULAR HEMOGLOBIN 28.2 pg (25-34); MEAN CORPUSCULAR HGB CONC 30.2 g/dl (32-36); MEAN PLATELET VOLUME 9.2 fL (7.4-10.4); PLATELET COUNT 169 K/uL (130-400); RED BLOOD COUNT 3.09 M/uL (4.2-5.4); WHITE BLOOD COUNT 8.61 K/uL (4.8-10.8)
[2017-01-16 06:26] LABS: BASO % 0.5 %; BASO ABS # 0.04 K/uL (0-0.2); COMPLETE YES; EOS % 5.1 %; IG% 0.2 %; LYMPH % 7.2 %; LYMPH ABS # 0.62 K/uL (1.2-3.4); MONO % 9.1 %; NEUT % 77.9 %; POLYCHROMASIA 1+
[2017-01-16 06:45] LABS: ALB/GLOB RATIO 0.6 (0.9-2); BUN/CREATININE RATIO 33.2 (10-20); MAGNESIUM 1.7 mg/dl (1.8-2.4); PHOSPHORUS 2.5 mg/dl (2.5-4.9); POTASSIUM 3.5 mmol/L (3.5-5.1)
[2017-01-16 06:57] LABS: CALCIUM 8.7 mg/dl (8.5-10.1)
[2017-01-16] MEDS: ALBUT/IPRATROP 3MG/0.5MG NEB 3 ML VIAL INH SCH ×4 (07:34→19:49)
[2017-01-16 07:44] LABS: ESTIMATED AVERAGE GLUCOSE 111 mg/dl; HA1C FLAG Normal (Normal)
[2017-01-16] MEDS: INSULIN GLARGINE SOLOSTAR 100 UNITS/ML 3 ML PEN SC SCH ×2 (08:40→21:15)
[2017-01-16] MEDS: INSULIN ASPART 100 UNITS/ML 3 ML PEN SC SCH ×4 (08:40→21:00)
[2017-01-16] MEDS: VANCOMYCIN INJ 1,300 MG in SODIUM CHLORIDE 0.9% 250ML 250 ML IV SCH (08:41)
[2017-01-16] MEDS: LACTOBACILLUS ACIDOPHILUS 1 GM PACK PO SCH ×3 (08:44→17:17)
[2017-01-16] MEDS: FLUTICASONE/SALMETEROL 250/50 (ADVAIR) 14 PUFF/1 INHALER INH SCH ×2 (08:44→21:12)
[2017-01-16] MEDS: TIOTROPIUM BROMIDE 5 PUFF/90 MCG INH INH SCH (08:44)
[2017-01-16] MEDS: FUROSEMIDE INJ 40 MG in SYRINGE 0 ML IV SCH ×2 (08:46→17:18)
[2017-01-16] MEDS: DULOXETINE HCL 20 MG CAP PO SCH (08:49)
[2017-01-16] MEDS: FERROUS SULFATE 325 MG TAB PO SCH ×2 (08:49→21:12)
[2017-01-16] MEDS: PANTOprazole SOD 40 MG TAB PO SCH (08:50)
[2017-01-16] MEDS: ASCORBIC ACID 500 MG TAB PO SCH ×2 (08:50→21:12)
[2017-01-16] MEDS: MAGNESIUM OXIDE 400 MG TAB PO SCH ×2 (08:50→21:13)
--- NOTE | 2017-01-16 10:02 | Medical Consult ---
Consultation Date of Consultation: January 16, 2017. Attending Physician: Boris Gross D.O. Reason for Consultation: PNA, possible BKA stump infection History of Present Illness Patient is a 71-year-old Diabetic female well known to the Infectious Disease service who presented to the emergency department with complaints altered mental. She had been sent the emergency department from [facility] due to concerns change in mental over the past day prior to admission. The patient was noted to a low-grade fever well. The patient was recently admitted to the hospital 12/13/2016 with concerns of osteomyelitis the foot. She ultimately underwent left BKA concerns nonhealing wounds and underlying osteomyelitis of the left lower extremity. She had completed antibiotic therapy following her left BKA am but discontinued from therapy prior to discharge to [facility]. Since current admission, the patient did have a chest x-ray which showed congestive failure and right pleural effusion on admission. A chest CT scan was done on 01/15 which showed patchy parenchymal infiltrated change in the upper lung regions bilaterally. She had blood cultures drawn which are showing no growth to date. Urine culture is showing no growth, but MRSA nasal swab was positive. Her white blood cell count on admission was 11.5 but is 8.1 today. She was placed empirically on IV vancomycin and Zosyn. She is also noted a small wound on her left BKA amputation site. Past Medical/Surgical History Medical Problems: (1) Atrial fibrillation Status: Acute (2) Bifascicular block Status: Acute (3) Cellulitis of both lower extremities Status: Acute (4) Cellulitis of foot, left Status: Acute (5) Cellulitis of left lower leg Status: Acute (6) CHF (congestive heart failure) Status: Acute (7) CHF exacerbation Status: Acute (8) Constipation Status: Acute (9) Diabetic foot ulcer Status: Acute (10) Electrolyte abnormality Status: Acute (11) Fever Status: Acute (12) Hyperkalemia Status: Acute (13) Hypokalemia Status: Acute (14) Leukocytosis Status: Acute (15) Pleural effusion, right Status: Acute (16) Sepsis Status: Acute (17) Sepsis Status: Acute (18) UTI (urinary tract infection) Status: Acute (19) UTI (urinary tract infection) Status: Acute Medical Problems: (1) Afib (2) AINSLEY (acute kidney injury) (3) Ambulatory dysfunction (4) Ambulatory dysfunction (5) Anemia (6) CHF (congestive heart failure) (7) Cholecystectomy (8) Chronic congestive heart failure (9) Chronic obstructive lung disease (10) CKD (chronic kidney disease) stage 3, GFR 30-59 ml/min (11) Complete below knee amputation of left lower extremity (12) COPD exacerbation (13) Diabetes mellitus (14) History of anxiety (15) History of hypokalemia (16) Hypokalemia (17) Hypothyroidism (18) NSTEMI, initial episode of care (19) Obstructive sleep apnea (20) Open wound (21) Osteomyelitis of left foot (22) PNA (pneumonia) (23) Pneumonia of both lower lobes (24) Septicemia due to group B Streptococcus (25) Shortness of breath (26) Wound infection Surgical Hx: Left BKA Family History Heart disease Noncontributory Social History Smoking Status: Former Smoker Drug Use: none Marital Status: Housing Status: lives with family, half-way Occupation Status: disabled Allergies Coded Allergies: Duloxetine (Verified Adverse Reaction, Mild, DIZZINESS, 12/27/16) Indigotindisulfonate (Verified Adverse Reaction, Unknown, "spaced out", ) Home Medications Reported Home Medications Medications Dose Route/Sig Max Daily Dose Days Date Category Dose Instructions Ascorbic Acid 500 Mg Tab 500 Mg PO BID 01/14/17 Reported Xarelto (Rivaroxaban) 20 Mg Tab 20 Mg PO DAILY 01/14/17 Reported Imodium (Loperamide HCl) 2 Mg Cap 2 Mg PO UD PRN 01/14/17 Reported Duoneb (Ipratropium-Albuterol) 3 Ml Nebu 1 Treatment INH Q2H PRN 01/14/17 Reported Furosemide 40 Mg Tab 40 Mg PO QAM 30 01/02/17 Rx Gabapentin 600 Mg Tab 300 Mg PO HS 30 01/02/17 Rx Digoxin 0.25 Mg Tab 0.25 Mg PO DAILY@16 30 01/02/17 Rx Ferrous Sulfate 325 Mg Tab 325 Mg PO BID 30 01/02/17 Rx Lorazepam 0.5 Mg Tab 0.5 Mg PO BID PRN 30 12/24/16 Rx Duloxetine HCl 20 Mg Cap 20 Mg PO QAM 30 12/24/16 Rx Novolog Flexpen (Insulin Aspart) 100 Units/Ml Inj 0 Units SC ACHS 10/20/16 Rx Floranex (Lactobacillus Acidophilus) 1 Tab Tab 2 Tab PO TIDM 10/20/16 Rx [place] 5MG/325MG (Acetaminophen/Hydrocodone Bitart) Tab 1 Tab PO Q6H PRN 30 10/20/16 Rx PRN PAIN Ultram (Tramadol HCl) 50 Mg Tab 50 Mg PO Q8H PRN 30 10/20/16 Rx Spiriva Handihaler (Tiotropium Raymond) 30 Puff/540 Mcg Aerp 1 Cap INH DAILY 10/15/16 Reported Synthroid (Levothyroxine Sodium) 200 Mcg Tab 200 Mcg PO DAILY 10/15/16 Reported TAKE WITH 50MCG TO TOTAL 250MCG Advair Diskus 250/50 60 Dose (Fluticasone Prop/Salmeterol) 1 Ea Aerp 1 Puff INH BID 10/15/16 Reported Klor-Con M20 (Potassium Chloride) 20 Meq Tabcr 20 Meq PO DAILY 30 09/26/16 Rx Spironolactone 25 Mg Tab 25 Mg PO QAM 30 09/26/16 Rx Levothyroxine Sodium 50 Mcg Tab 50 Mcg PO DAILY 09/20/16 Reported TAKE WITH 200MCG = 250MCG DAILY. Nitrostat (Nitroglycerin) 0.4 Mg Tab 0.4 Mg UT PRN 09/19/16 Reported NEEDED FOR CHEST PAIN : ONE TABLET, UNDER THE TONGUE, EVERY 5 MINUTES UP TO 3 DOSES. Miralax (Polyethylene Glycol 3350) 1 Pow Pow 17 Gm PO DAILY PRN 08/06/16 Reported Tylenol (Acetaminophen) 325 Mg Tab 650 Mg PO Q8H PRN 08/06/16 Reported Mag-Ox (Magnesium Oxide) 400 Mg Tab 400 Mg PO BID 05/17/16 Reported Oxygen Gas 3 Liters NA CONTINOUS 02/20/16 Reported Prilosec (Omeprazole) 20 Mg Cap 20 Mg PO DAILY 08/22/13 Reported Current Inpatient Medications Current Inpatient Medications Medications (Trade) Dose Ordered Sig/Hans Route Start Time Stop Time Status Last Admin Dose Admin Acetaminophen (Tylenol Tab) 650 mg Q4H PRN PO 01/14/17 16:00 02/13/17 15:59 01/15/17 12:06 650 MG Al Hydrox/Mg Hydrox/Simethicone (Maalox Max Susp) 15 ml Q4H PRN PO 01/14/17 16:00 02/13/17 15:59 Magnesium Hydroxide (Milk Of Magnesia Susp) 30 ml Q12H PRN PO 01/14/17 16:00 02/13/17 15:59 Ondansetron HCl (Zofran Inj) 4 mg Q6H PRN IV 01/14/17 16:00 02/13/17 15:59 Nitroglycerin (Nitrostat Tab) 0.4 mg UD PRN SL 01/14/17 16:00 02/13/17 15:59 Polyethylene 17 gm 17 gm DAILY PRN PO 01/14/17 16:00 02/13/17 15:59 Furosemide/Syringe (Lasix Inj/ Syringe) 4 ml @ 4 mls/min BID17 IV 01/14/17 19:00 02/13/17 18:59 01/16/17 08:46 4 MLS/MIN Ascorbic Acid (Vitamin C Tab) 500 mg BID PO 01/14/17 21:00 02/13/17 20:59 01/16/17 08:50 500 MG Digoxin (Lanoxin Tab) 0.25 mg DAILY@16 PO 01/14/17 16:00 02/13/17 15:59 01/15/17 17:04 0.25 MG Duloxetine HCl (Cymbalta Cap) 20 mg QAM PO 01/15/17 09:00 02/14/17 08:59 01/16/17 08:49 20 MG Ferrous Sulfate (Feosol Tab) 325 mg BID PO 01/14/17 21:00 02/13/17 20:59 01/16/17 08:49 325 MG Salmeterol Xinafoate/ Fluticasone (Advair Diskus 250/50 Inh) 1 puff BID INH 01/14/17 21:00 02/13/17 20:59 01/16/17 08:44 1 PUFF Gabapentin (Neurontin Cap) 300 mg HS PO 01/14/17 21:00 02/13/17 20:59 01/15/17 19:40 300 MG Acetaminophen/ Hydrocodone Bitart ([place] 5/325 Tab) 1 tab Q6H PRN PO 01/14/17 16:00 01/28/17 15:59 01/14/17 19:12 1 TAB Levothyroxine Sodium (Synthroid Tab) 50 mcg DAILYBB PO 01/15/17 06:30 02/14/17 06:59 01/16/17 05:43 50 MCG Levothyroxine Sodium (Synthroid Tab) 200 mcg DAILYBB PO 01/15/17 06:30 02/14/17 06:59 01/16/17 05:43 200 MCG Loperamide HCl (Imodium Cap) 2 mg UD PRN PO 01/14/17 16:00 02/13/17 15:59 Lorazepam (Ativan Tab) 0.5 mg BID PRN PO 01/14/17 16:00 02/13/17 15:59 Magnesium Oxide (Mag-Ox Tab) 400 mg BID PO 01/14/17 21:00 02/13/17 20:59 01/16/17 08:50 400 MG Rivaroxaban (Xarelto Tab) 20 mg QDD PO 01/14/17 19:00 02/13/17 18:59 01/15/17 17:04 20 MG Tiotropium Raymond (Spiriva Handihaler Inhaler) 1 puff DAILY INH 01/15/17 09:00 02/14/17 08:59 01/16/17 08:44 1 PUFF Tramadol HCl (Ultram Tab) 50 mg Q8H PRN PO 01/14/17 16:00 02/13/17 15:59 Pantoprazole Sodium (Protonix Tab) 40 mg QAM PO 01/15/17 09:00 02/14/17 08:59 01/16/17 08:50 40 MG Albuterol/ Ipratropium (Duoneb) 3 ml QIDR INH 01/14/17 16:00 02/13/17 15:59 01/16/17 07:34 3 ML Piperacillin Sod/ Tazobactam Sod 1 ea 1 ea UD PRN N/A 01/14/17 18:45 02/13/17 18:44 Piperacillin Sod/ Tazobactam Sod/ Dextrose (Zosyn Iv/D5 100ml) 120 ml @ 30 mls/hr Q8H IV 01/14/17 22:00 01/21/17 13:59 01/16/17 05:43 30 MLS/HR Vancomycin HCl 1 ea 1 ea UD PRN N/A 01/14/17 19:00 02/13/17 18:59 Vancomycin HCl/ Sodium Chloride (Vancomycin Inj/ Nss 250ml) 276 ml @ 125 mls/hr Q18H IV 01/15/17 14:00 01/21/17 19:59 01/16/17 08:41 125 MLS/HR Glucose (Glucose 40% Gel) 15-30 GRAMS 15 GRAMS... UD PRN PO 01/15/17 06:00 02/14/17 05:59 Glucose (Glucose Chew Tab) 4-8 Tablets 4 Tabl... UD PRN PO 01/15/17 06:00 02/14/17 05:59 Dextrose (Dextrose 50% 50ML Syringe) 25-50ML OF 50% DW IV FOR... UD PRN IV 01/15/17 06:00 02/14/17 05:59 Glucagon (Glucagon Inj) 1 mg UD PRN SQ 01/15/17 06:00 02/14/17 05:59 Miscellaneous Information (Consult Glycemic Management Pharmacy) 1 ea UD PRN N/A 01/15/17 15:15 02/14/17 15:14 Lactobacillus Acidophilus (Lactinex Granules Pack) 1 gm TIDM PO 01/16/17 08:00 02/15/17 07:59 01/16/17 08:44 1 GM Miconazole Nitrate (Desenex Powder) 1 appln UD PRN EXT 01/15/17 19:00 02/14/17 18:59 01/15/17 21:02 1 APPLN Insulin Aspart (novoLOG ASPART) SLIDING SCALE If C... ACHS SC 01/16/17 06:30 02/15/17 06:29 01/16/17 08:40 3 UNITS Insulin Glargine (Lantus Solostar Pen) 10 unit BID SC 01/16/17 09:00 02/15/17 08:59 01/16/17 08:40 10 UNIT Review of Systems Constitutional: + chills, + fatigue, + sweats, + weakness Eyes: No worsening of vision ENT: No hearing loss Respiratory: + shortness of breath Cardiovascular: No chest pain, No palpitations Abdomen: + nausea, No diarrhea, No vomiting Musculoskeletal: + joint pain (left BKA amputation site pain) Genitourinary - Female: No dysuria, No urinary frequency Integumentary: No itch, No new/changing skin lesions, No rash Physical Exam Date Time Temp Pulse Resp B/P Pulse Ox O2 Delivery O2 Flow Rate FiO2 01/16/17 07:47 37.3 63 16 161/53 97 Nasal Cannula 4.0 01/16/17 07:36 64 20 91 Nasal Cannula 4.0 01/16/17 04:00 Nasal Cannula 5.0 01/16/17 04:00 36.7 68 16 141/56 97 01/16/17 00:00 Nasal Cannula 5.0 01/15/17 23:43 37.3 71 18 149/65 97 01/15/17 20:00 95 Nasal Cannula 5.0 01/15/17 20:00 Nasal Cannula 5.0 01/15/17 20:00 37.1 66 18 136/65 98 Nasal Cannula 6.0 01/15/17 19:59 82 20 98 Nasal Cannula 5.0 01/15/17 17:04 67 01/15/17 16:00 Nasal Cannula 5.0 01/15/17 15:23 37.4 81 22 145/56 98 Nasal Cannula 6.0 01/15/17 15:00 67 24 99 Nasal Cannula 6.0 01/15/17 13:15 37.1 01/15/17 12:00 Nasal Cannula 5.0 01/15/17 11:54 38.3 70 22 145/62 100 BiPAP 5.0 01/15/17 11:50 67 99 6.0 01/15/17 11:49 67 24 96 BiPAP/CPAP 6.0 General Appearance: WD/WN, + mild distress Head: normocephalic, atraumatic Eyes: normal inspection, sclerae normal ENT: hearing grossly normal Neck: supple, trachea midline Respiratory/Chest: chest non-tender, no respiratory distress, no accessory muscle use, + rhonchi (throughout lungs, greatest in left upper lobe) Cardiovascular: regular rate, rhythm, + pertinent finding (difficult to hear heart sounds over coarse lung sounds) Abdomen/GI: normal bowel sounds, non tender Back: normal inspection Extremities/Musculoskelatal: + pertinent finding (left BKA site with small ulceration and surrounding darkened skin. No noted erythema but warm to the touch. Tenderness to palpation) Neurologic/Psych: alert, + disoriented Skin: warm/dry, no rash, + pertinent finding (as above) Laboratory Results CHEST CT WITHOUT CONTRAST CT DOSE: 772.07 mGy.cm HISTORY: Dyspnea. Chest pain. severe SOB with pleural effusion TECHNIQUE: Multiaxial CT images of the chest were performed without contrast. COMPARISON: 12/30/2016 FINDINGS: Bilateral pleural effusions. This is somewhat increased in volume from the prior study. Bilateral lower lobe atelectatic change. Bilateral upper lobe infiltrative changes again noted and appears to be similar compared to the prior study. Atherosclerotic change thoracic aorta. Moderate cardiomegaly. Mild splenomegaly stable from the prior study. IMPRESSION: 1. Similar CT compared to the prior study of 12/30/2016. 2. Moderate cardiomegaly, bilateral pleural effusions, and basilar atelectatic/plan loss change. 3. Patchy parenchymal infiltrative change in the upper lung regions bilaterally versus congestive failure/pulmonary edematous change. Item Value Date Time Urine Culture - Preliminary Resulted 01/14/17 1950 Urine,Catheterized NO GROWTH - LESS THAN 1,000 COLONIES/... MRSA DNA Surveillance Screen - Final Complete 01/14/17 1848 Nasal Specimen Positive for MRSA by DNA Probe Blood Culture - Preliminary Resulted 01/14/17 1340 Blood NO GROWTH TO DATE. Blood Culture - Preliminary Resulted 01/14/17 1340 Blood NO GROWTH TO DATE. Last 24 Hours Test 01/15/17 11:38 01/15/17 16:16 01/15/17 16:32 01/15/17 18:50 Bedside Glucose 280 mg/dl 230 mg/dl Sodium Level 145 mmol/L Potassium Level 4.1 mmol/L Chloride Level 105 mmol/L Carbon Dioxide Level 36 mmol/L Anion Gap 4.0 mmol/L Blood Urea Nitrogen 36 mg/dl Creatinine 1.10 mg/dl Est Creatinine Clear Calc Drug Dose 50.0 ml/min Estimated GFR () 58.1 Estimated GFR (Non- 50.1 BUN/Creatinine Ratio 33.1 Random Glucose 240 mg/dl Calcium Level 8.7 mg/dl Pro-B-Type Natriuretic Peptide 7782 pg/ml Procalcitonin 0.63 ng/ml Test 01/15/17 20:22 01/16/17 05:36 01/16/17 07:38 Bedside Glucose 242 mg/dl 196 mg/dl White Blood Count 8.61 K/uL Red Blood Count 3.09 M/uL Hemoglobin 8.7 g/dL Hematocrit 28.8 % Mean Corpuscular Volume 93.2 fL Mean Corpuscular Hemoglobin 28.2 pg Mean Corpuscular Hemoglobin Concent 30.2 g/dl Platelet Count 169 K/uL Mean Platelet Volume 9.2 fL Neutrophils (%) (Auto) 77.9 % Lymphocytes (%) (Auto) 7.2 % Monocytes (%) (Auto) 9.1 % Eosinophils (%) (Auto) 5.1 % Basophils (%) (Auto) 0.5 % Neutrophils # (Auto) 6.71 K/uL Lymphocytes # (Auto) 0.62 K/uL Monocytes # (Auto) 0.78 K/uL Eosinophils # (Auto) 0.44 K/uL Basophils # (Auto) 0.04 K/uL RDW Standard Deviation 66.1 fL RDW Coefficient of Variation 19.3 % Immature Granulocyte % (Auto) 0.2 % Immature Granulocyte # (Auto) 0.02 K/uL Polychromasia 1+ Sodium Level 146 mmol/L Potassium Level 3.5 mmol/L Chloride Level 103 mmol/L Carbon Dioxide Level 38 mmol/L Anion Gap 5.0 mmol/L Blood Urea Nitrogen 33 mg/dl Creatinine 1.00 mg/dl Est Creatinine Clear Calc Drug Dose 52.8 ml/min Estimated GFR () 65.2 Estimated GFR (Non- 56.2 BUN/Creatinine Ratio 33.2 Random Glucose 183 mg/dl Estimated Average Glucose 111 mg/dl Hemoglobin A1c 5.5 % Calcium Level 8.7 mg/dl Phosphorus Level 2.5 mg/dl Magnesium Level 1.7 mg/dl Total Bilirubin 1.2 mg/dl Aspartate Amino Transf (AST/SGOT) 4 U/L Alanine Aminotransferase (ALT/SGPT) 11 U/L Alkaline Phosphatase 161 U/L Total Protein 5.7 gm/dl Albumin 2.2 gm/dl Globulin 3.5 gm/dl Albumin/Globulin Ratio 0.6 Assessment & Plan Patient with possible left upper lobe pneumonia/inflammatory lung process and very small wound of the left BKA amputation site. MRSA nasal swab was positive. Patient is currently on IV Zosyn and Vancomycin which is appropriate with recent hospitalization and coming from [facility]- concern for HCAP. Overall, patient's left BKA site looks like it is healing relatively well but does have some warmth and tenderness, will watch closely. Will continue IV abx therapy pending further improvement. We will follow. PROVIDER ADDENDUM: Patient examined and reviewed with Ms. Osei. Agree with above assessment.
[2017-01-16] MEDS: MICONAZOLE NITRATE POWDER 43 GM EXT PRN (10:55)
--- NOTE | 2017-01-16 10:59 | PULMONARY CONSULTATION ---
DATE OF CONSULTATION: 01/16/2017 TIME: 08:40 a.m. REPORT OF CONSULTATION: The patient was seen in room 285, bed 1. She is a 71-year-old female who has had a chief complaint of shortness of breath. She is not a good historian. The patient told me, "I don't want to answer all those questions." Review of records shows that she was hospitalized from December 13 through December 24. During that hospital stay, she had osteomyelitis of the left foot and she ultimately underwent a left below knee amputation. She also had a questionable TIA during that hospital stay. She does have a history of atrial fibrillation. She was transferred to [facility]. Subsequently, she was readmitted from December 27 through January 03. She was treated during that hospital stay for pneumonia. She was treated during that stay with Zosyn and Levaquin. She again went back to [facility]. She was admitted again here on January 14 because of shortness of breath and acute mental status changes. She reportedly is more alert today than she had been. She is complaining of shortness of breath. She has a loose cough. She states she is not able to bring any phlegm up. Her nurse tells me she sounds a lot less noisy in the chest today than she did yesterday. This may correlate with the fact that she had a very significant diuresis yesterday of 4025 mL. Reportedly, she is a lot more short of breath if she lies back. She complains if her bed is not set up at 70 degrees or so. She denies having any chest pains. Beyond this, she really would not answer any questions. It was difficult to assess her orientation. She did not know the month. She is listed as having COPD. Review of her records shows that she is taking Advair and tiotropium and she also was on continuous oxygen at 3 liters. The patient first told me she never smoked. Then she told me that she used to smoke. She refused any further questions in that regard, however. PAST MEDICAL HISTORY: 1. Atrial fibrillation. 2. Acute kidney injury. 3. Anemia. 4. Ambulatory dysfunction. 5. Diastolic CHF. 6. COPD as noted. 7. Diabetes. 8. Hypothyroidism. 9. Reported history of sleep apnea, but I have no idea if she actually had a sleep test. 10. Osteomyelitis of the left foot as noted. 11. Prior sepsis secondary to beta strep. 12. C. diff infection. PAST SURGICAL HISTORY: Cholecystectomy and left below knee amputation done recently. FAMILY HISTORY: Reportedly positive for heart disease. ALLERGIES: LISTED ALLERGIES TO DULOXETINE AND INDIGOTINDISULFONATE. REVIEW OF SYSTEMS: Essentially unobtainable. See the above note. PHYSICAL EXAMINATION: GENERAL: The patient is a 71-year-old female who was somewhat cooperative. She just kept saying she wanted to get out of here. She looks older than her chronologic age. She has had fevers. On the date of admission, she had a maximum temperature of 39.2. Yesterday, her maximum temperature was 38.3. Today, her highest temperature thus far is 37.3. EYES: Exam shows evidence of a crust on the eyelids bilaterally. The nasal cannula was in place. MOUTH: Exam showed crowding. Her tongue rides high in the back of the throat. NECK: She has a lot of cervical spine arthritis seemingly in association with a kyphosis. No lymphadenopathy was palpable, but the patient complained as I was examining her neck. CHEST: Shows a kyphosis. Scattered rhonchi were heard in the upper lung gomez. Diminished breath sounds were heard in the lower lung gomez posteriorly. Oxygen saturation this morning is 97% on 4 liters. HEART: Heart rate is 63. The rhythm is irregular. The blood pressure was 161/83. Respiratory rate was 20 breaths per minute. ABDOMEN: Inspection of the abdomen reveals a scar in the mid abdominal region and she has a hernia. Her bowel sounds were very active. She would not let me palpate deeply in the abdomen. I could not tell if she was having discomfort from this or not. EXTREMITIES: Reveals the left BKA. She is complaining of a lot of tenderness with any touching of her stump. The right foot and ankle are very abnormal with marked rotation. RADIOLOGIC STUDY: Chest x-ray done on admission suggested an increase in right pleural effusion with cardiomegaly and pulmonary vascular prominence. A followup chest x-ray on January 15 showed questionable improvement in the pulmonary edema and right pleural effusion. She did have a CAT scan of the chest done last evening. This was compared with the prior CAT scan done in December 30. She again had bilateral effusions, which appear to be larger than prior. There was atelectasis or consolidations in the lower lung gomez. The prior CAT scan showed mid and upper lung field infiltrates, more prominent then than what is seen currently, but because she has increased volume loss and effusion, this is difficult to assess. CAT scan of the head showed no acute intracranial abnormality. LABORATORY DATA: White blood cell count on admission was 11.55 and today is 8.61. Hemoglobin today is 8.7. It had been 9.7 yesterday. Platelets are 169,000. Admission INR was 1.3 and PTT was 30.3. Urinalysis on admission was for the most part unremarkable. Blood gas done yesterday showed a pH of 7.33 with a pCO2 of 63 and a pO2 of 72 done on 6 liters. Electrolytes today show sodium 146, potassium 3.5, chloride 103, and bicarbonate 38. BUN today is 33 with a creatinine of 1. The prior BUN was 36 with a creatinine of 1.1. Her proBNP was 7782. Procalcitonin was elevated somewhat at 0.63. AST is 4 and ALT is 11. Magnesium is 1.7 and phosphorus 2.5. IMPRESSION: 1. Respiratory failure - acute on chronic with hypoxia and hypercarbia. 2. Congestive heart failure. 3. Probable bilateral pneumonia. 4. Pleural effusions greater on the right than the left. COMMENTS AND RECOMMENDATIONS: From an antibiotic perspective, she is receiving vancomycin and Zosyn. She is currently on furosemide 40 mg q. 12 hours and yesterday, she had a very good diuresis. She is on DuoNeb treatments q.i.d. She is ordered tiotropium and Advair. I am doubtful she is capable of taking the medicine in optimally. The patient apparently is clinically a little bit better. The questions of course are is she a candidate for thoracentesis. One complicating factor is that she is on rivaroxaban. For now, I think I would continue to try and diurese her well. As noted, she had a very good response yesterday and according to nursing staff, has clinically improved. Nonetheless, a thoracentesis may be necessary if she does not further improve clinically and radiographically. The patient has multisystem disease and her status is obviously poor. She has been hospitalized 3 times now in 1 month. She has no insight into her problems. Would continue other medications as current. We will need to follow her kidney functions carefully with the diuresis as well as other medicines that may give renal insult. Thank you for asking me to assist in her care.
--- NOTE | 2017-01-16 12:59 | Pharmacy Progress Note ---
Glycemic: Assessment & Plan Date of Service January 16, 2017. Assessment & Plan Outpatient Anti-diabetic Regimen: * Novolog ACHS * A1c = 5.5% 01/16/17 -- likely not reliable d/t recent transfusions ASSESSMENT: * ADA & AACE recommend a goal blood sugar range 140-180 mg/dl for the majority of critically ill & non-critically ill patients. However, more stringent targets may be selected in individual cases. 01/16/17: * BSGs are improved from yesterday, but pt remains hyperglycemic. * Will initiate scheduled BID Lantus for now and adjust daily as needed. * No change in Novolog parameters at this time, but will consider adjusting if correction/prandial coverage appears to be insufficient. * The two most current HbA1c values available are likely inaccurate reflections of glycemic control, as both were obtained ~1 month after receiving blood transfusions. While it is difficult to assess outpatient glycemic control, it seems likely that patient would benefit from some basal insulin, based on data from admissions. 01/15/17 * Patient is a 71yo diabetic female admitted with altered mental status and fever (?pnx vs COPD exacerbation). * Patient is known to glycemic service from past admissions. Insulin needs have been difficult to determine in the past. * For now, will give one time dose of Lantus and re-assess in the morning. * Novolog parameters appear to be appropriate, based on past admissions. Will re-evaluate and adjust as needed tomorrow. PLAN FOR INPATIENT GLYCEMIC CONTROL: * Basal insulin with LANTUS 10 units SQ BID * Hold if BSG less than 110mg/dL * Correctional Insulin with NOVOLOG per scale ACHS or Q6hrs while NPO * Goal Range: Low 140 mg/dL - High 180 mg/dL * Correction Factor: 25 mg/dL/unit * Nutritional / Prandial insulin per carb ratio of 1 unit per 8 grams CHO consumed PLAN FOR DISCHARGE: * Suspect that patient would benefit from the addition of basal insulin. Might consider adding basal insulin in addition to sliding scale coverage. * Please note that the plan above was derived based on current level of insulin resistance and hospital stress. These recommendations are appropriate for inpatient admission only. Plan of care upon discharge will need to be reassessed to avoid potential outpatient hypo/hyperglycemia. Thank you.
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
[2017-01-16] MEDS: DIGOXIN 0.25 MG TAB PO SCH (17:16)
[2017-01-16] MEDS: RIVAROXABAN 20 MG TAB PO SCH (17:17)
[2017-01-16] MEDS: GABAPENTIN 300 MG CAP PO SCH (21:12)
[2017-01-17] VITALS (12 sets, daily range): BP systolic 116–148; BP diastolic 58–73; PULSE 51–75; TEMP 36.5–36.9; O2SAT 93–100
[2017-01-17] MEDS ORDERED: VANCOMYCIN TROUGH SCH (01:30)
[2017-01-17] MEDS: VANCOMYCIN INJ 1,300 MG in SODIUM CHLORIDE 0.9% 250ML 250 ML IV SCH (01:52)
[2017-01-17] MEDS: LEVOTHYROXINE 50 MCG TAB PO SCH (05:41)
[2017-01-17] MEDS: PIPERACILL/TAZOBAC IV 4.5 GM in DEXTROSE 5% 100ML IV SCH ×3 (05:41→21:57)
[2017-01-17] MEDS: LEVOTHYROXINE 200 MCG TAB PO SCH (05:41)
[2017-01-17] MEDS: INSULIN ASPART 100 UNITS/ML 3 ML PEN SC SCH ×4 (06:30→21:56)
[2017-01-17 06:48] LABS: HEMATOCRIT 27.2 % (37-47); MEAN CELL VOLUME 92.8 fL (80-100); MEAN CORPUSCULAR HEMOGLOBIN 29.4 pg (25-34); MEAN CORPUSCULAR HGB CONC 31.6 g/dl (32-36); PLATELET COUNT 148 K/uL (130-400); RED BLOOD COUNT 2.93 M/uL (4.2-5.4); WHITE BLOOD COUNT 6.92 K/uL (4.8-10.8)
[2017-01-17 07:37] LABS: BUN/CREATININE RATIO 26.9 (10-20); CALCIUM 7.9 mg/dl (8.5-10.1); CREATININE 0.88 mg/dl (0.60-1.20); POTASSIUM 3.1 mmol/L (3.5-5.1)
[2017-01-17] MEDS: ALBUT/IPRATROP 3MG/0.5MG NEB 3 ML VIAL INH SCH ×4 (07:43→20:28)
[2017-01-17] MEDS: FLUTICASONE/SALMETEROL 250/50 (ADVAIR) 14 PUFF/1 INHALER INH SCH ×2 (07:59→21:40)
[2017-01-17] MEDS: TIOTROPIUM BROMIDE 5 PUFF/90 MCG INH INH SCH (08:00)
[2017-01-17] MEDS: DULOXETINE HCL 20 MG CAP PO SCH (08:01)
[2017-01-17] MEDS: FERROUS SULFATE 325 MG TAB PO SCH ×2 (08:01→21:41)
[2017-01-17] MEDS: MAGNESIUM OXIDE 400 MG TAB PO SCH ×2 (08:01→21:40)
[2017-01-17] MEDS: GABAPENTIN 300 MG CAP PO SCH (08:02)
[2017-01-17] MEDS: PANTOprazole SOD 40 MG TAB PO SCH (08:02)
[2017-01-17] MEDS: ASCORBIC ACID 500 MG TAB PO SCH ×2 (08:02→21:40)
[2017-01-17] MEDS: LACTOBACILLUS ACIDOPHILUS 1 GM PACK PO SCH ×3 (08:04→17:54)
[2017-01-17] MEDS: INSULIN GLARGINE SOLOSTAR 100 UNITS/ML 3 ML PEN SC SCH (08:08)
[2017-01-17] MEDS: FUROSEMIDE INJ 40 MG in SYRINGE 0 ML IV SCH ×2 (08:21→17:54)
--- NOTE | 2017-01-17 09:08 | DIAGNOSTIC IMAGING REPORT ---
CHEST ONE VIEW PORTABLE CLINICAL HISTORY: Pleural effusions. COMPARISON STUDY: Chest radiograph and chest CT January 15, 2017. FINDINGS: Moderate right and small left pleural effusions with associated airspace opacities are again noted. The right effusion may slightly decreased in size. There is pulmonary vascular congestion with suspected mild pulmonary edema. Cardiomegaly is unchanged. There is no pneumothorax. IMPRESSION: 1. Moderate right and small left pleural effusions with bibasilar opacities which could reflect consolidation or atelectasis. 2. No change in mild pulmonary edema. Electronically signed by: Joe Rajput M.D. 01/17/2017 9:07 AM Dictated Date/Time: 01/17/2017 9:05 AM
--- NOTE | 2017-01-17 09:55 | Progress Note ---
Subjective Date of Service: January 17, 2017. Subjective Pt evaluation today including: conversation w/ patient, physical exam, chart review, lab review pt still with sob, on O2. cough. no sputum culture obtained to date. all remaining cultures negative. no pain at amp site. no f/c. tolerating abx. denies cp. no n/v/d. all remaining ros reviewed and are negative. Problem List Medical Problems: (1) Atrial fibrillation Status: Acute (2) Bifascicular block Status: Acute (3) Cellulitis of both lower extremities Status: Acute (4) Cellulitis of foot, left Status: Acute (5) Cellulitis of left lower leg Status: Acute (6) CHF (congestive heart failure) Status: Acute (7) CHF exacerbation Status: Acute (8) Constipation Status: Acute (9) Diabetic foot ulcer Status: Acute (10) Electrolyte abnormality Status: Acute (11) Fever Status: Acute (12) Hyperkalemia Status: Acute (13) Hypokalemia Status: Acute (14) Leukocytosis Status: Acute (15) Pleural effusion, right Status: Acute (16) Sepsis Status: Acute (17) Sepsis Status: Acute (18) UTI (urinary tract infection) Status: Acute (19) UTI (urinary tract infection) Status: Acute Objective Vital Signs Date Time Temp Pulse Resp B/P Pulse Ox O2 Delivery O2 Flow Rate FiO2 01/17/17 07:45 36.5 51 20 116/64 99 Nasal Cannula 3.0 01/17/17 07:43 63 14 98 Nasal Cannula 3.0 01/17/17 04:17 36.5 57 18 143/73 98 3.0 01/17/17 04:00 Nasal Cannula 3.0 01/17/17 00:03 36.8 56 16 136/66 98 Nasal Cannula 3.0 01/17/17 00:01 Nasal Cannula 3.0 01/16/17 20:08 93 Nasal Cannula 3.0 01/16/17 19:53 36.7 59 16 151/63 91 3.0 01/16/17 19:00 78 14 94 Nasal Cannula 3.0 01/16/17 17:16 65 01/16/17 16:10 93 Nasal Cannula 3.0 01/16/17 16:10 95 Nasal Cannula 4.0 01/16/17 15:38 69 20 93 Nasal Cannula 3.0 01/16/17 15:28 37.2 56 22 133/54 96 Nasal Cannula 3.0 01/16/17 12:00 Nasal Cannula 4.0 01/16/17 11:31 37.5 62 16 125/51 100 Nasal Cannula 4.0 01/16/17 11:06 62 20 98 Nasal Cannula 4.0 Physical Exam General Appearance: WD/WN, no apparent distress Eyes: EOMI Neck: supple Respiratory/Chest: + decreased breath sounds Cardiovascular: regular rate, rhythm Abdomen: non tender, soft Extremities: non-tender, no pedal edema, + pertinent finding (lbka stump c/d/i , no erythema, healing well) Neurologic/Psychiatric: alert Skin: normal color Laboratory Results Item Value Date Time Blood Culture - Preliminary Resulted 01/14/17 1340 Blood NO GROWTH TO DATE. Blood Culture - Preliminary Resulted 01/14/17 1340 Blood NO GROWTH TO DATE. Urine Culture - Final Complete 01/14/17 1950 Urine,Catheterized NO GROWTH - LESS THAN 1,000 COLONIES/ML Last 24 Hours Test 01/16/17 11:21 01/16/17 16:28 01/16/17 20:37 01/17/17 01:29 Bedside Glucose 177 mg/dl 187 mg/dl 141 mg/dl Vancomycin Level Trough 21.5 mcg/ml Test 01/17/17 06:28 01/17/17 08:05 White Blood Count 6.92 K/uL Red Blood Count 2.93 M/uL Hemoglobin 8.6 g/dL Hematocrit 27.2 % Mean Corpuscular Volume 92.8 fL Mean Corpuscular Hemoglobin 29.4 pg Mean Corpuscular Hemoglobin Concent 31.6 g/dl RDW Standard Deviation 64.3 fL RDW Coefficient of Variation 18.9 % Platelet Count 148 K/uL Mean Platelet Volume 9.0 fL Sodium Level 144 mmol/L Potassium Level 3.1 mmol/L Chloride Level 101 mmol/L Carbon Dioxide Level 41 mmol/L Anion Gap 2.0 mmol/L Blood Urea Nitrogen 24 mg/dl Creatinine 0.88 mg/dl Est Creatinine Clear Calc Drug Dose 59.4 ml/min Estimated GFR () 76.1 Estimated GFR (Non- 65.6 BUN/Creatinine Ratio 26.9 Random Glucose 89 mg/dl Calcium Level 7.9 mg/dl Bedside Glucose 101 mg/dl Assessment and Plan (1) Pneumonia of both lower lobes Assessment & Plan: continue abx, doubt she will be able to provide sputum specimen, remaining culture negative. would give 7 days total for suspected hcap. vanco/zosyn appropriate emperic therapy
--- NOTE | 2017-01-17 11:02 | Pharmacy Progress Note ---
Pharmacy Antibiotic Prog Note Date of Service January 17, 2017. Subjective The patient is currently receiving Vancomycin + Zosyn for HAP The patient is currently on day # 4 of 7 IV therapy. Objective Height (Feet): 5 Height (Inches): 3.00 Weight (Kilograms): 84.100 Levels: Item Value Date Time Vancomycin Level Trough 21.5 mcg/ml 01/17/17 0129 Lab Results (24hrs): Micro Results: Item Value Date Time Blood Culture - Preliminary Resulted 01/14/17 1340 Blood NO GROWTH TO DATE. Blood Culture - Preliminary Resulted 01/14/17 1340 Blood NO GROWTH TO DATE. MRSA DNA Surveillance Screen - Final Complete 01/14/17 1848 Nasal Specimen Positive for MRSA by DNA Probe Urine Culture - Final Complete 01/14/17 1950 Urine,Catheterized NO GROWTH - LESS THAN 1,000 COLONIES/ML Assessment & Plan 71yo female receiving IV Vanco + Zosyn for HAP. Regimen is appropriate based on risk factors for MDRO. VANCOMYCIN: * Trough level drawn today is slightly supratherapeutic at 21.5mcg/ml * Pt with BMI > 35 and vancomycin likely to continue accumulating once Vd filled and at steady state * Will continue current dosing of Vancomycin 1,300mg (~15mg/kg) but extend interval from Q18hrs to Q24hrs to allow for additional vancomycin excretion to maintain goal trough level * Goal trough level estimate: between 15 - 20 mcg/mL for pulmonary indication * Completion of therapy on Day # 7 of therapy is 01/20/17. Will not re-order trough level at this time. * If therapy duration is extended beyond 7 days will re-order trough levels as warranted. ZOSYN: Piperacillin/Tazobactam Extended Infusion: * 4.5 grams IV bolus, 4.5 grams IV every 8 hours for est CrCL > 20mL/min. * 4.5 grams IV bolus, 4.5 grams IV every 12 hours for est CrCL 20mL/min or below * Consider this more aggressive regimen if: critically ill, obese with BMI 35 or above, cystic fibrosis, SHANNAN > 16 g/mL * Weight ranges from 85 -100kg over the past 6 months. Will continue this more aggressive dosing based on average weight and recent abx use. Pharmacy will continue to follow and will adjust dose/frequency as necessary. Thank you
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
--- NOTE | 2017-01-17 13:58 | Pharmacy Progress Note ---
Glycemic Control: Progress Nt Date of Service January 17, 2017. Scope Glycemic Pharmacist consulted by Dr Williamson on 01/15/17 for glycemic control and to write orders per [facility] inpatient glycemic control protocol. Objective Accuchecks BSG (last 24hrs): Test 01/16/17 16:28 01/16/17 20:37 01/17/17 06:28 01/17/17 08:05 Bedside Glucose 187 mg/dl (70-90) 141 mg/dl (70-90) 101 mg/dl (70-90) Random Glucose 89 mg/dl (70-99) Test 01/17/17 12:15 Bedside Glucose 139 mg/dl (70-90) Laboratory Data (last 24hrs) Test 01/17/17 06:28 Anion Gap 2.0 mmol/L BUN/Creatinine Ratio 26.9 Blood Urea Nitrogen 24 mg/dl Creatinine 0.88 mg/dl Potassium Level 3.1 mmol/L Sodium Level 144 mmol/L White Blood Count 6.92 K/uL HbA1c: Test 01/16/17 05:36 Hemoglobin A1c 5.5 % (4.5-5.6) Recent Pertinent Medications Outpatient Anti-diabetic Regimen: * NovoLog sliding scale The patient is currently receiving: * Basal insulin: * Lantus 10 units every 12 hours * Bolus Insulin: * NovoLog Correction per scale ACHS * Goal Range: Low 140 mg/dL - High 180 mg/dL * Correction Factor: 25 mg/dL/unit * Carb ratio of 1 unit per 8 grams CHO consumed Risk Factors for Insulin Resistance: * Infection: vancomycin, piperacillin/tazobactam * Diet: tolerating PO intake Assessment & Plan ASSESSMENT: * ADA & AACE recommend a goal blood sugar range 140-180 mg/dl for the majority of critically ill & non-critically ill patients. However, more stringent targets may be selected in individual cases. * Patient is a 71yo diabetic female admitted with altered mental status and fever * Patient is known to glycemic service from past admissions. Insulin needs have been difficult to determine in the past. 01/16/17: * BSGs are improved from yesterday, but pt remains hyperglycemic. * Will initiate scheduled BID Lantus for now and adjust daily as needed. * No change in NovoLog parameters at this time, but will consider adjusting if correction/prandial coverage appears to be insufficient. * The two most current HbA1c values available are likely inaccurate reflections of glycemic control, as both were obtained ~1 month after receiving blood transfusions. While it is difficult to assess outpatient glycemic control, it seems likely that patient would benefit from some basal insulin, based on data from admissions. 01/17/17 * BSGs responded well to Lantus yesterday - however below goal range this AM * change basal insulin to range dose based on BSG * NovoLog parameters appear appropriate at this time PLAN FOR INPATIENT GLYCEMIC CONTROL: * Basal insulin: * LANTUS SQ BID - 0 units if BSG is below 120mg/dL - 5 units if BSG is 120-160mg/dL - 10 units if BSG is above 160mg/dL * Bolus insulin: * NOVOLOG per scale AC/HS * Goal Range: Low 140 mg/dL - High 180 mg/dL * Correction Factor: 25 mg/dL/unit * Carb ratio of 1 unit per 8 grams CHO consumed PLAN FOR DISCHARGE: * Suspect that patient would benefit from the addition of basal insulin. Might consider adding basal insulin in addition to sliding scale coverage. * Please note that the plan above was derived based on current level of insulin resistance and hospital stress. These recommendations are appropriate for inpatient admission only. Plan of care upon discharge will need to be reassessed to avoid potential outpatient hypo/hyperglycemia. Thank you.
[2017-01-17] MEDS: DIGOXIN 0.25 MG TAB PO SCH (16:00)
--- NOTE | 2017-01-17 16:12 | PROGRESS NOTE ---
DATE: 01/17/2017 DATE: 01/17/2017. PROBLEM LIST: Includes: 1. Acute on chronic respiratory failure with hypoxia and hypercarbia. 2. Congestive heart failure. 3. Bilateral pneumonia. 4. Pleural effusion. SUBJECTIVE: The patient reports that her breathing is about the same or slightly better than it was yesterday. She feels slightly impatient but otherwise has no complaints. She does have a little bit of cough yet but that is improved as well. No chest congestion or tightness. She has not had any chest pain. She does complain of a little bit of abdominal pain that comes and goes. She states that her bowels have moved but not quite as normal. She is not having any difficulty voiding. She is not having any swelling in her extremities that she is aware of. OBJECTIVE: GENERAL: The patient is a 71-year-old female lying in bed. She is alert and oriented x3. Mood is good. Affect is good. VITAL SIGNS: Temp 36.7, pulse 75, respirations 22, blood pressure 133/63 , pulse ox 98% on 3 liters. HEAD, EYES, EARS, NOSE, AND THROAT: Normocephalic, atraumatic. Pupils equal, round and react to light and accommodation. Extraocular movements intact. [place] and moist gingival and buccal mucosa. NECK: Supple. No mass. No adenopathy. No bruit. CHEST: Diminished breath sounds bilaterally. A few coarse wheezes in the upper airway. I was not able to auscultate any rales in the bases. CARDIOVASCULAR: Irregularly irregular. No murmurs, gallops or rubs noted. ABDOMEN: Bowel sounds are present. Abdomen soft, nontender. There is no guarding, rigidity or organomegaly. EXTREMITIES: No erythema or edema. NEUROLOGIC: Cranial nerves II through XII were grossly intact. No focal deficit noted. LABORATORY DATA: Shows white count 6.9, H\T\H 8.6 and 27.2, platelet count 148,000. BUN 24, creatinine 0.88. IMPRESSION: Urine legionella is still pending. A chest x-ray continues to show bilateral pleural effusions, right greater than left, although right may be slightly smaller in size. IMPRESSION: A 71-year-old who presented with acute on chronic respiratory failure with pneumonia and bilateral pleural effusion at this time. The patient is showing small signs of improvement. In light of her current condition recommend to continue antibiotic and currently is to continue Lasix as is, continue aggressive pulmonary toilet. She may do well or better as an outpatient with something like Brovana or budesonide via nebulizer versus inhaler but that can be addressed as an outpatient. At this point will continue to follow through hospitalization.
[2017-01-17] MEDS: RIVAROXABAN 20 MG TAB PO SCH (17:54)
[2017-01-17] MEDS ORDERED: INSULIN GLARGINE SOLOSTAR 100 UNITS/ML 3 ML PEN SC SCH (21:00)
[2017-01-18] VITALS (11 sets, daily range): BP systolic 128–144; BP diastolic 65–78; PULSE 49–102; TEMP 36.4–36.9; O2SAT 93–100
[2017-01-18] MEDS: VANCOMYCIN INJ 1,300 MG in SODIUM CHLORIDE 0.9% 250ML 250 ML IV SCH (04:39)
[2017-01-18] MEDS: PIPERACILL/TAZOBAC IV 4.5 GM in DEXTROSE 5% 100ML IV SCH ×3 (05:47→20:37)
[2017-01-18] MEDS: LEVOTHYROXINE 50 MCG TAB PO SCH (05:50)
[2017-01-18] MEDS: LEVOTHYROXINE 200 MCG TAB PO SCH (05:50)
[2017-01-18] MEDS: ALBUT/IPRATROP 3MG/0.5MG NEB 3 ML VIAL INH SCH ×4 (07:26→19:51)
[2017-01-18] MEDS ORDERED: INSULIN GLARGINE SOLOSTAR 100 UNITS/ML 3 ML PEN SC SCH ×2 (09:00→21:00)
[2017-01-18] MEDS: ASCORBIC ACID 500 MG TAB PO SCH ×2 (09:51→20:30)
[2017-01-18] MEDS: PANTOprazole SOD 40 MG TAB PO SCH (09:51)
[2017-01-18] MEDS: FUROSEMIDE INJ 40 MG in SYRINGE 0 ML IV SCH ×2 (09:51→16:40)
[2017-01-18] MEDS: LACTOBACILLUS ACIDOPHILUS 1 GM PACK PO SCH ×3 (09:51→16:37)
[2017-01-18] MEDS: FERROUS SULFATE 325 MG TAB PO SCH ×2 (09:51→20:30)
[2017-01-18] MEDS: MAGNESIUM OXIDE 400 MG TAB PO SCH ×2 (10:02→20:31)
[2017-01-18] MEDS: FLUTICASONE/SALMETEROL 250/50 (ADVAIR) 14 PUFF/1 INHALER INH SCH ×2 (10:03→20:29)
[2017-01-18] MEDS: TIOTROPIUM BROMIDE 5 PUFF/90 MCG INH INH SCH (10:03)
[2017-01-18] MEDS: DULOXETINE HCL 20 MG CAP PO SCH (10:04)
[2017-01-18] MEDS: INSULIN ASPART 100 UNITS/ML 3 ML PEN SC SCH ×4 (10:14→20:36)
--- NOTE | 2017-01-18 10:35 | Pharmacy Progress Note ---
Glycemic Control: Progress Nt Date of Service January 18, 2017. Scope Glycemic Pharmacist consulted by Dr Williamson on 01/15/17 for glycemic control and to write orders per [facility] inpatient glycemic control protocol. Objective Accuchecks BSG (last 24hrs): Test 01/17/17 12:15 01/17/17 16:12 01/17/17 20:36 01/18/17 07:40 Bedside Glucose 139 mg/dl (70-90) 185 mg/dl (70-90) 292 mg/dl (70-90) 168 mg/dl (70-90) HbA1c: Test 01/16/17 05:36 Hemoglobin A1c 5.5 % (4.5-5.6) Recent Pertinent Medications Outpatient Anti-diabetic Regimen: * NovoLog sliding scale The patient is currently receiving: * Basal insulin: * Lantus SQ every 12 hours - 0 units if BSG is less than 120mg/dL - 5 units if BSG is 120-160mg/dL - 10 units if BSG is above 160mg/dL 01/15 20 units of Lantus, 01/16 20 units of Lantus, 01/17 10 units of Lantus * Bolus Insulin: * NovoLog SQ AC/HS * Goal Range: Low 140 mg/dL - High 180 mg/dL * Correction Factor: 25 mg/dL/unit * Carb ratio of 1 unit per 8 grams CHO consumed Risk Factors for Insulin Resistance: * Infection: vancomycin, piperacillin/tazobactam * Diet: tolerating PO intake Assessment & Plan ASSESSMENT: * ADA & AACE recommend a goal blood sugar range 140-180 mg/dl for the majority of critically ill & non-critically ill patients. However, more stringent targets may be selected in individual cases. * Patient is a 71yo diabetic female admitted with altered mental status and fever * Patient is known to glycemic service from past admissions. Insulin needs have been difficult to determine in the past. 01/16/17: * BSGs are improved from yesterday, but pt remains hyperglycemic. * Will initiate scheduled BID Lantus for now and adjust daily as needed. * No change in NovoLog parameters at this time, but will consider adjusting if correction/prandial coverage appears to be insufficient. * The two most current HbA1c values available are likely inaccurate reflections of glycemic control, as both were obtained ~1 month after receiving blood transfusions. While it is difficult to assess outpatient glycemic control, it seems likely that patient would benefit from some basal insulin, based on data from admissions. 01/18/17 * Lantus has been trended over the past 3 days * appears that 20 units is too aggressive, and 5-10 units is too little - Increase to Lantus 15 units SQ (5 units in AM and 10 units in PM) - this reflects a TDD of ~30 units * NovoLog parameters likely are appropriate * will decrease goal range to improve glycemic control. PLAN FOR INPATIENT GLYCEMIC CONTROL: * Basal insulin: * LANTUS SQ BID - 5 units SQ in AM - 10 units SQ in PM * Bolus insulin: * NOVOLOG per scale AC/HS * Goal Range: Low 110 mg/dL - High 140 mg/dL * Correction Factor: 25 mg/dL/unit * Carb ratio of 1 unit per 8 grams CHO consumed PLAN FOR DISCHARGE: * Suspect that patient would benefit from the addition of basal insulin. Might consider adding basal insulin in addition to sliding scale coverage. * Please note that the plan above was derived based on current level of insulin resistance and hospital stress. These recommendations are appropriate for inpatient admission only. Plan of care upon discharge will need to be reassessed to avoid potential outpatient hypo/hyperglycemia. Thank you.
[2017-01-18] MEDS ORDERED: NURSING DECISION MEDICATION ORDER SCH (10:45)
[2017-01-18] MEDS ORDERED: SODIUM CHLORIDE 0.65% NA SOLN 45 ML (OCEAN) PRN (11:15)
[2017-01-18] MEDS: HYDROCODONE/ACETAMOPHEN 5/325MG TAB PO PRN ×2 (12:35→20:29)
--- NOTE | 2017-01-18 14:32 | Progress Note ---
Subjective Date of Service: January 18, 2017. Subjective Pt evaluation today including: conversation w/ patient, physical exam, chart review, lab review, review of studies, review of inpatient medication list Reports sob still persistent diarrhea per nursing no fevers or chills no other complaints Problem List Medical Problems: (1) Atrial fibrillation Status: Acute (2) Bifascicular block Status: Acute (3) Cellulitis of both lower extremities Status: Acute (4) Cellulitis of foot, left Status: Acute (5) Cellulitis of left lower leg Status: Acute (6) CHF (congestive heart failure) Status: Acute (7) CHF exacerbation Status: Acute (8) Constipation Status: Acute (9) Diabetic foot ulcer Status: Acute (10) Electrolyte abnormality Status: Acute (11) Fever Status: Acute (12) Hyperkalemia Status: Acute (13) Hypokalemia Status: Acute (14) Leukocytosis Status: Acute (15) Pleural effusion, right Status: Acute (16) Sepsis Status: Acute (17) Sepsis Status: Acute (18) UTI (urinary tract infection) Status: Acute (19) UTI (urinary tract infection) Status: Acute Review of Systems Constitutional: No chills, No fever Respiratory: + shortness of breath, No cough, No sputum Cardiac: No chest pain, No orthopnea Abdomen: + diarrhea, No nausea, No pain Musculoskeletal: No joint pain, No muscle pain Female : No dysuria, No urinary frequency Objective Vital Signs Date Time Temp Pulse Resp B/P Pulse Ox O2 Delivery O2 Flow Rate FiO2 01/18/17 12:08 36.5 59 18 144/69 100 3.0 01/18/17 12:01 Nasal Cannula 2.0 01/18/17 11:14 51 18 98 Nasal Cannula 3.0 01/18/17 08:35 36.4 59 20 144/78 98 2.0 01/18/17 08:00 Nasal Cannula 3.0 01/18/17 07:26 61 18 98 Nasal Cannula 3.0 01/18/17 04:33 36.7 49 18 128/65 100 3.0 01/18/17 04:00 Nasal Cannula 3.0 01/18/17 00:00 Nasal Cannula 3.0 01/17/17 23:37 36.6 58 19 137/68 98 Nasal Cannula 3.0 01/17/17 20:28 65 18 100 Nasal Cannula 3.0 01/17/17 20:05 93 Nasal Cannula 3.0 01/17/17 19:23 36.9 58 18 148/66 97 Nasal Cannula 3.0 01/17/17 16:10 93 Nasal Cannula 3.0 01/17/17 16:10 67 18 98 Nasal Cannula 3.0 01/17/17 16:10 95 Nasal Cannula 4.0 01/17/17 16:00 57 01/17/17 15:07 36.6 54 20 123/58 94 Nasal Cannula 3.0 Physical Exam General Appearance: WD/WN, no apparent distress, + obese Neck: supple, no adenopathy Respiratory/Chest: lungs clear, normal breath sounds Cardiovascular: regular rate, rhythm, no gallop Abdomen: non tender, soft Neurologic/Psychiatric: alert, normal mood/affect Laboratory Results Last 24 Hours Test 01/17/17 16:12 01/17/17 20:36 01/18/17 07:40 01/18/17 11:49 Bedside Glucose 185 mg/dl 292 mg/dl 168 mg/dl 220 mg/dl Assessment and Plan 71 y/o female, with PMHx of Diabetic foot ulcer s/p left BKA, diastolic CHF, a.fib, hypothyroidism, COPD, anxiety/depression, and GERD, who presented to the ED from [facility] because of AMS. CXR at [facility] on 01/13 showed right lower lung pneumonia and pulmonary edema; patient was treated with Levaquin and Lasix. However, patient's status continued to worsen. currently has SOB and fever. Acute hypoxic respiratory failure Multilobar pneumonia (likely HCAP) Metabolic encephalopathy Acute on chronic diastolic CHF B/L pleural effusion left BKA stump erythema and tenderness Decubitus ulcer stage 3 POA CAD/HTN/A.Fib/DMII/Hypothyroidism Diarrhea Plan: continue tele for cardiac monitoring continue IV Vancomycin and Zosyn / consult ID, agree with IV antibx for 7 days , MRSA pos CT chest without contrast to evaluate the extent of any consolidation underneath the pleural effusion Influenza swab negative Sputum Cx pending/UCx and BCx NGTD procalcitonin 0.63 DuoNebs QID and q2 hrs PRN BIPAP prn O2 protocol, wean as tolerated- wears 2L at all times CT head was normal TSH was recently normal (12/2016) consult long goods drier for potential taping continue IV Lasix 40 mg BID- hold Lasix 40 mg PO c diff neg Monitor I&Os and daily weights Johnston placed - ECHO 12/30/16: * There is borderline concentric left ventricular hypertrophy. * Left ventricular systolic function is normal. * The left atrium is severely dilated. * The right atrium is moderately dilated. * There is mild mitral regurgitation. * Right ventricular systolic pressure is elevated at 30-40mmHg. continue sliding insulin scale coverage Continue Digoxin 125 mcg by mouth daily, Cardizem-CD 240 mg daily, and Xarelto 20 mg daily Continue Mag oxide 400 mg twice a day- mag level WNL Continue Levothyroxine 250 mcg by mouth daily Continue Advair 250/50 inhalation twice a day, Spiriva Continue Cymbalta 20 mg daily DVT prophylaxis: Xarelto Code Status: LEVEL V, DNR
--- NOTE | 2017-01-18 14:38 | PULMONARY PROGRESS NOTE ---
DATE: 01/18/2017 TIME: 1:55 p.m. SUBJECTIVE: The patient states she feels about the same. She started talking about how depressed she had been. She states she felt like she did not want to live anymore. This apparently was fairly recently. She is concerned that her surgeon will not want to be her doctor any more. I was not sure if she was totally oriented or not. I believe she was referring to probably her last hospital stay. She is still short of breath and she is still coughing. The cough is increased with taking deep breaths. She has been diuresing. Her weight is 6.5 kilograms less today than it was on January 14. OBJECTIVE: GENERAL: The patient did not appear in distress. VITAL SIGNS: Temperature is 36.5. She has not had a fever for a couple of days at least. Back on January 14, her max temperature was 39.2. HEART: Rate is 60 per minute. The rhythm is irregular. LUNGS: Lung gomez revealed tubular breath sounds bilaterally. She has egophony in these areas. Her respiratory rate is 18 breaths per minute. Saturation is 100% on 3 liters. ABDOMEN: Obese. It was soft. EXTREMITIES: Revealed the left BKA. She is still complaining of stump pain. LABORATORY DATA: Blood sugar today was 220. The urine for legionella is still pending. C. diff was negative. Blood cultures have been negative. IMAGING DATA: She had a chest x-ray yesterday. This appeared to be relatively unchanged with persistence of moderate right and small left pleural effusions, associated with airspace opacities as well. The right effusion did seem to be decreased a bit. IMPRESSIONS: 1. Respiratory failure with hypoxia and hypercarbia -- improved. 2. Congestive heart failure. 3. Pneumonia. 4. Pleural effusions. 5. Atrial fibrillation. RECOMMENDATIONS: The patient is improved. She seems to persist; however, with a fair amount of egophony and probable effusions. She may still need thoracentesis if it does not further improve. She remains on vancomycin and Zosyn. She is on nebulizer treatments. Follow up assessments will need to be done. She has the infiltrates that we are superimposing may be related to pneumonia because of the relatively high fever she had at the time of admission. She also had an elevated white count which has improved.
[2017-01-18] MEDS: DIGOXIN 0.25 MG TAB PO SCH (16:00)
[2017-01-18] MEDS: RIVAROXABAN 20 MG TAB PO SCH (16:40)
[2017-01-18] MEDS: GABAPENTIN 300 MG CAP PO SCH (20:29)
[2017-01-19] VITALS (11 sets, daily range): BP systolic 115–147; BP diastolic 56–75; PULSE 44–65; TEMP 36.5–37; O2SAT 97–100
[2017-01-19] MEDS: VANCOMYCIN INJ 1,300 MG in SODIUM CHLORIDE 0.9% 250ML 250 ML IV SCH (04:00)
[2017-01-19] MEDS: PIPERACILL/TAZOBAC IV 4.5 GM in DEXTROSE 5% 100ML IV SCH ×3 (06:39→22:28)
[2017-01-19] MEDS: LEVOTHYROXINE 50 MCG TAB PO SCH (06:42)
[2017-01-19] MEDS: LEVOTHYROXINE 200 MCG TAB PO SCH (06:42)
[2017-01-19 07:02] LABS: CREATININE 0.97 mg/dl (0.60-1.20)
[2017-01-19] MEDS: ALBUT/IPRATROP 3MG/0.5MG NEB 3 ML VIAL INH SCH ×4 (07:05→20:08)
[2017-01-19] MEDS: LACTOBACILLUS ACIDOPHILUS 1 GM PACK PO SCH ×3 (08:36→16:17)
[2017-01-19] MEDS: FERROUS SULFATE 325 MG TAB PO SCH ×2 (08:36→20:30)
[2017-01-19] MEDS: ASCORBIC ACID 500 MG TAB PO SCH ×2 (08:36→20:27)
[2017-01-19] MEDS: DULOXETINE HCL 20 MG CAP PO SCH (08:36)
[2017-01-19] MEDS: FLUTICASONE/SALMETEROL 250/50 (ADVAIR) 14 PUFF/1 INHALER INH SCH ×2 (08:37→20:31)
[2017-01-19] MEDS: PANTOprazole SOD 40 MG TAB PO SCH (08:37)
[2017-01-19] MEDS: MAGNESIUM OXIDE 400 MG TAB PO SCH ×2 (08:37→20:29)
[2017-01-19] MEDS: TIOTROPIUM BROMIDE 5 PUFF/90 MCG INH INH SCH (08:38)
[2017-01-19] MEDS: INSULIN ASPART 100 UNITS/ML 3 ML PEN SC SCH ×4 (08:41→20:18)
[2017-01-19] MEDS: INSULIN GLARGINE SOLOSTAR 100 UNITS/ML 3 ML PEN SC SCH ×2 (08:42→20:26)
[2017-01-19] MEDS: FUROSEMIDE INJ 40 MG in SYRINGE 0 ML IV SCH ×2 (08:42→16:16)
[2017-01-19] MEDS: HYDROCODONE/ACETAMOPHEN 5/325MG TAB PO PRN ×2 (08:50→16:13)
--- NOTE | 2017-01-19 08:56 | PULMONARY PROGRESS NOTE ---
DATE: 01/19/2017 TIME: 7:40 a.m. SUBJECTIVE: The patient states she is feeling a little better. She is not as short of breath. She is not coughing as much. She remains depressed. She talks about asking whether it is worth it to do all this. OBJECTIVE: GENERAL: The patient appears comfortable. VITAL SIGNS: Temperature is 36.6. Heart rate was 57 per minute. Blood pressure is 145/68. NECK: She has a scar at the base of her neck from prior tracheostomy about 10 years ago. HEART: The rhythm was irregular. CHEST: Auscultation of the lung gomez revealed very tubular breath sounds on the right. This seems to have progressed to a higher area. There are slightly tubular breath sounds on the left. The right is much more pronounced. ABDOMEN: Obese. She still has a Johnston catheter in place. EXTREMITIES: The patient has the left BKA. LABORATORY DATA: The creatinine today is 0.97. IMPRESSIONS: 1. Respiratory failure with hypoxia and hypercarbia -- improved. 2. Congestive heart failure. 3. Probable pneumonia. 4. Pleural effusions. 5. Atrial fibrillation. COMMENTS AND RECOMMENDATIONS: The patient sounds even more tubular on the right than previous. I am going to check an x-ray for tomorrow morning. She may need thoracentesis. I discussed this with her briefly. She of course was anxious about having to have anything done. Dr. Cortes will be seeing the patient as of tomorrow and he will make decisions after reviewing the x-ray.
--- NOTE | 2017-01-19 09:25 | Pharmacy Progress Note ---
Glycemic Control: Progress Nt Date of Service January 19, 2017. Scope Glycemic Pharmacist consulted by Dr Williamson on 01/15/17 for glycemic control and to write orders per [facility] inpatient glycemic control protocol. Objective Accuchecks BSG (last 24hrs): Test 01/18/17 11:49 01/18/17 16:04 01/18/17 20:17 01/19/17 07:43 Bedside Glucose 220 mg/dl (70-90) 145 mg/dl (70-90) 219 mg/dl (70-90) 210 mg/dl (70-90) Test 01/19/17 08:14 Laboratory Data (last 24hrs) Test 01/19/17 05:56 01/19/17 08:14 Creatinine 0.97 mg/dl HbA1c: Test 01/16/17 05:36 Hemoglobin A1c 5.5 % (4.5-5.6) Recent Pertinent Medications Outpatient Anti-diabetic Regimen: * NovoLog sliding scale The patient is currently receiving: * Basal insulin: * Lantus 5 units SQ in AM and 10 units SQ in PM * Bolus Insulin: * NovoLog SQ AC/HS * Goal Range: Low 110 mg/dL - High 140 mg/dL * Correction Factor: 25 mg/dL/unit * Carb ratio of 1 unit per 8 grams CHO consumed Risk Factors for Insulin Resistance: * Infection: vancomycin, piperacillin/tazobactam * Diet: tolerating PO intake Assessment & Plan ASSESSMENT: * ADA & AACE recommend a goal blood sugar range 140-180 mg/dl for the majority of critically ill & non-critically ill patients. However, more stringent targets may be selected in individual cases. * Patient is a 71yo diabetic female admitted with altered mental status and fever * Patient is known to glycemic service from past admissions. Insulin needs have been difficult to determine in the past. 01/16/17: * BSGs are improved from yesterday, but pt remains hyperglycemic. * Will initiate scheduled BID Lantus for now and adjust daily as needed. * No change in NovoLog parameters at this time, but will consider adjusting if correction/prandial coverage appears to be insufficient. * The two most current HbA1c values available are likely inaccurate reflections of glycemic control, as both were obtained ~1 month after receiving blood transfusions. While it is difficult to assess outpatient glycemic control, it seems likely that patient would benefit from some basal insulin, based on data from admissions. 01/18/17 * Lantus has been changed over the past few days with doses ranging from 10-20 units daily * Fasting BSG elevated x2 days - increase to a total daily Lantus dose of 20 units, split BID * NovoLog parameters may benefit from more aggressive regimen as prandial bsgs are elevated as well as fasting * tighten based on a stress of 3 PLAN FOR INPATIENT GLYCEMIC CONTROL: * Basal insulin: * LANTUS 10 units SQ BID * Bolus insulin: * NOVOLOG per scale AC/HS * Goal Range: Low 110 mg/dL - High 140 mg/dL * Correction Factor: 20 mg/dL/unit * Carb ratio of 1 unit per 7 grams CHO consumed PLAN FOR DISCHARGE: * Suspect that patient would benefit from the addition of basal insulin. Might consider adding basal insulin in addition to sliding scale coverage. * Please note that the plan above was derived based on current level of insulin resistance and hospital stress. These recommendations are appropriate for inpatient admission only. Plan of care upon discharge will need to be reassessed to avoid potential outpatient hypo/hyperglycemia. Thank you.
[2017-01-19 09:42] LABS: BASO % 0.3 %; BASO ABS # 0.02 K/uL (0-0.2); EOS % 5.6 %; HEMATOCRIT 26.4 % (37-47); IG% 0.3 %; LYMPH % 6.5 %; LYMPH ABS # 0.38 K/uL (1.2-3.4); MEAN CELL VOLUME 90.7 fL (80-100); MEAN CORPUSCULAR HEMOGLOBIN 29.2 pg (25-34); MEAN CORPUSCULAR HGB CONC 32.2 g/dl (32-36); MEAN PLATELET VOLUME 8.8 fL (7.4-10.4); MONO % 5.6 %; NEUT % 81.7 %; PLATELET COUNT 127 K/uL (130-400); RED BLOOD COUNT 2.91 M/uL (4.2-5.4); WHITE BLOOD COUNT 5.88 K/uL (4.8-10.8)
[2017-01-19 10:09] LABS: CALCIUM 7.8 mg/dl (8.5-10.1); POTASSIUM 2.9 mmol/L (3.5-5.1)
[2017-01-19 10:23] LABS: COMPLETE YES
--- NOTE | 2017-01-19 14:57 | Progress Note ---
Subjective Date of Service: January 19, 2017. Subjective Pt evaluation today including: conversation w/ patient, physical exam, chart review, lab review, review of studies, review of inpatient medication list Reports feeling better diarrhea resolved resting in bed comfortably Problem List Medical Problems: (1) Atrial fibrillation Status: Acute (2) Bifascicular block Status: Acute (3) Cellulitis of both lower extremities Status: Acute (4) Cellulitis of foot, left Status: Acute (5) Cellulitis of left lower leg Status: Acute (6) CHF (congestive heart failure) Status: Acute (7) CHF exacerbation Status: Acute (8) Constipation Status: Acute (9) Diabetic foot ulcer Status: Acute (10) Electrolyte abnormality Status: Acute (11) Fever Status: Acute (12) Hyperkalemia Status: Acute (13) Hypokalemia Status: Acute (14) Leukocytosis Status: Acute (15) Pleural effusion, right Status: Acute (16) Sepsis Status: Acute (17) Sepsis Status: Acute (18) UTI (urinary tract infection) Status: Acute (19) UTI (urinary tract infection) Status: Acute Review of Systems Constitutional: No chills, No fever Respiratory: No cough, No dyspnea on exertion, No shortness of breath, No sputum, No wheezing Cardiac: No chest pain, No orthopnea Abdomen: No diarrhea, No nausea, No pain, No vomiting Musculoskeletal: No joint pain, No muscle pain Female : No dysuria, No urinary frequency Objective Vital Signs Date Time Temp Pulse Resp B/P Pulse Ox O2 Delivery O2 Flow Rate FiO2 01/19/17 12:00 Nasal Cannula 3.0 01/19/17 11:51 36.9 49 18 131/56 97 Room Air 01/19/17 11:05 44 18 97 Nasal Cannula 3.0 01/19/17 08:00 Nasal Cannula 3.0 01/19/17 07:30 36.5 57 18 136/65 98 01/19/17 07:05 57 18 99 Nasal Cannula 3.0 01/19/17 05:03 36.6 65 18 145/68 100 3.0 01/19/17 04:00 Nasal Cannula 3.0 01/19/17 00:11 36.7 64 18 126/65 100 3.0 01/19/17 00:02 Nasal Cannula 3.0 01/18/17 20:08 36.9 102 20 130/65 99 3.0 01/18/17 20:05 93 Nasal Cannula 3.0 01/18/17 19:51 71 14 99 Nasal Cannula 3.0 01/18/17 16:10 93 Nasal Cannula 3.0 01/18/17 16:00 55 01/18/17 15:32 58 18 97 Nasal Cannula 3.0 01/18/17 15:30 36.5 58 16 138/70 99 Physical Exam General Appearance: WD/WN, no apparent distress Neck: supple, no adenopathy Respiratory/Chest: lungs clear, normal breath sounds Cardiovascular: no edema, no gallop Abdomen: non tender, soft Neurologic/Psychiatric: alert, normal mood/affect Laboratory Results Last 24 Hours Test 01/18/17 16:04 01/18/17 20:17 01/19/17 05:56 01/19/17 07:43 Bedside Glucose 145 mg/dl 219 mg/dl 210 mg/dl Creatinine 0.97 mg/dl Est Creatinine Clear Calc Drug Dose 54.3 ml/min Estimated GFR () 67.6 Estimated GFR (Non- 58.3 Test 01/19/17 09:28 01/19/17 11:40 White Blood Count 5.88 K/uL Red Blood Count 2.91 M/uL Hemoglobin 8.5 g/dL Hematocrit 26.4 % Mean Corpuscular Volume 90.7 fL Mean Corpuscular Hemoglobin 29.2 pg Mean Corpuscular Hemoglobin Concent 32.2 g/dl Platelet Count 127 K/uL Mean Platelet Volume 8.8 fL Neutrophils (%) (Auto) 81.7 % Lymphocytes (%) (Auto) 6.5 % Monocytes (%) (Auto) 5.6 % Eosinophils (%) (Auto) 5.6 % Basophils (%) (Auto) 0.3 % Neutrophils # (Auto) 4.80 K/uL Lymphocytes # (Auto) 0.38 K/uL Monocytes # (Auto) 0.33 K/uL Eosinophils # (Auto) 0.33 K/uL Basophils # (Auto) 0.02 K/uL RDW Standard Deviation 61.3 fL RDW Coefficient of Variation 18.3 % Immature Granulocyte % (Auto) 0.3 % Immature Granulocyte # (Auto) 0.02 K/uL Basophilic Stippling 1+ Sodium Level 141 mmol/L Potassium Level 2.9 mmol/L Chloride Level 97 mmol/L Carbon Dioxide Level 40 mmol/L Anion Gap 4.0 mmol/L Blood Urea Nitrogen 17 mg/dl Creatinine 1.00 mg/dl Est Creatinine Clear Calc Drug Dose 52.7 ml/min Estimated GFR () 65.2 Estimated GFR (Non- 56.2 BUN/Creatinine Ratio 17.0 Random Glucose 256 mg/dl Calcium Level 7.8 mg/dl Digoxin Level 0.7 ng/ml Bedside Glucose 222 mg/dl Assessment and Plan 71 y/o female, with PMHx of Diabetic foot ulcer s/p left BKA, diastolic CHF, a.fib, hypothyroidism, COPD, anxiety/depression, and GERD, who presented to the ED from [facility] because of AMS. CXR at [facility] on 01/13 showed right lower lung pneumonia and pulmonary edema; patient was treated with Levaquin and Lasix. However, patient's status continued to worsen. currently has SOB and fever. Acute hypoxic respiratory failure Multilobar pneumonia (likely HCAP) Metabolic encephalopathy Acute on chronic diastolic CHF B/L pleural effusion left BKA stump erythema and tenderness Decubitus ulcer stage 3 POA CAD/HTN/A.Fib/DMII/Hypothyroidism Diarrhea Plan: continue tele for cardiac monitoring continue IV Vancomycin and Zosyn / consult ID, agree with IV antibx for 7 days , MRSA pos CT chest without contrast to evaluate the extent of any consolidation underneath the pleural effusion Influenza swab negative Sputum Cx pending/UCx and BCx NGTD procalcitonin 0.63 DuoNebs QID and q2 hrs PRN BIPAP prn O2 protocol, wean as tolerated- wears 2L at all times CT head was normal TSH was recently normal (12/2016) 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 * Left ventricular systolic function is normal. * The left atrium is severely dilated. * The right atrium is moderately dilated. * There is mild mitral regurgitation. * Right ventricular systolic pressure is elevated at 30-40mmHg. continue sliding insulin scale coverage Continue Digoxin 125 mcg by mouth daily, Cardizem-CD 240 mg daily, and Xarelto 20 mg daily Continue Mag oxide 400 mg twice a day- mag level WNL Continue Levothyroxine 250 mcg by mouth daily Continue Advair 250/50 inhalation twice a day, Spiriva Continue Cymbalta 20 mg daily DVT prophylaxis: Xarelto Code Status: LEVEL V, DNR
[2017-01-19] MEDS: DIGOXIN 0.25 MG TAB PO SCH (16:15)
[2017-01-19] MEDS: RIVAROXABAN 20 MG TAB PO SCH (16:17)
[2017-01-19] MEDS: POTASSIUM CHLORIDE 20 MEQ TABCR PO SCH (20:28)
[2017-01-19] MEDS: GABAPENTIN 300 MG CAP PO SCH (20:30)
[2017-01-20] VITALS (18 sets, daily range): BP systolic 114–148; BP diastolic 28–71; PULSE 55–86; TEMP 36.5–37; O2SAT 95–100
[2017-01-20] MEDS ORDERED: VANCOMYCIN TROUGH SCH (03:30)
[2017-01-20] MEDS: VANCOMYCIN INJ 1,300 MG in SODIUM CHLORIDE 0.9% 250ML 250 ML IV SCH (04:32)
[2017-01-20] MEDS: PIPERACILL/TAZOBAC IV 4.5 GM in DEXTROSE 5% 100ML IV SCH ×3 (05:38→21:29)
[2017-01-20] MEDS: LEVOTHYROXINE 50 MCG TAB PO SCH (05:41)
[2017-01-20] MEDS: LEVOTHYROXINE 200 MCG TAB PO SCH (05:41)
[2017-01-20] MEDS: INSULIN ASPART 100 UNITS/ML 3 ML PEN SC SCH ×4 (06:30→21:19)
[2017-01-20] MEDS: ALBUT/IPRATROP 3MG/0.5MG NEB 3 ML VIAL INH SCH ×4 (07:27→19:14)
[2017-01-20] MEDS: LACTOBACILLUS ACIDOPHILUS 1 GM PACK PO SCH ×3 (08:00→16:50)
--- NOTE | 2017-01-20 08:38 | DIAGNOSTIC IMAGING REPORT ---
CHEST ONE VIEW PORTABLE CLINICAL HISTORY: Pneumonia. Effusion. COMPARISON STUDY: 01/17/2017 FINDINGS: The heart is enlarged. There is radiographic evidence of congestive failure with pulmonary edema. There are bilateral pleural effusions. There are associated bibasal airspace opacities.[ IMPRESSION: 1. Persistent cardiomegaly, and radiographic evidence of pulmonary edema 2. Persistent bilateral pleural effusions with bibasilar airspace opacities Electronically signed by: Gennaro Coleman M.D. 01/20/2017 8:37 AM Dictated Date/Time: 01/20/2017 8:36 AM
[2017-01-20] MEDS ORDERED: FUROSEMIDE 40 MG/4 ML VIAL IV STA (08:47)
[2017-01-20] MEDS: POTASSIUM CHLORIDE 20 MEQ TABCR PO SCH ×2 (09:00→21:14)
[2017-01-20] MEDS: DULOXETINE HCL 20 MG CAP PO SCH (09:00)
[2017-01-20] MEDS ORDERED: FUROSEMIDE INJ 40 MG in SYRINGE 0 ML IV ONE (09:15)
[2017-01-20] MEDS ORDERED: NURSING VERBAL MED ORDER ONE ×3 (09:30→15:30)
[2017-01-20] MEDS: FLUTICASONE/SALMETEROL 250/50 (ADVAIR) 14 PUFF/1 INHALER INH SCH ×2 (10:02→21:15)
[2017-01-20] MEDS: POTASSIUM CHLR 10MEQ / WTR IV SCH ×4 (10:02→14:09)
[2017-01-20] MEDS: FUROSEMIDE INJ 40 MG in SYRINGE 0 ML IV SCH ×2 (10:03→17:00)
[2017-01-20] MEDS: INSULIN GLARGINE SOLOSTAR 100 UNITS/ML 3 ML PEN SC SCH (10:05)
[2017-01-20 11:03] LABS: BASO % 0.3 %; BASO ABS # 0.02 K/uL (0-0.2); EOS % 5.6 %; HEMATOCRIT 27.7 % (37-47); IG% 0.4 %; LYMPH % 7.5 %; LYMPH ABS # 0.58 K/uL (1.2-3.4); MEAN CELL VOLUME 90.8 fL (80-100); MEAN CORPUSCULAR HEMOGLOBIN 28.9 pg (25-34); MEAN CORPUSCULAR HGB CONC 31.8 g/dl (32-36); MEAN PLATELET VOLUME 8.6 fL (7.4-10.4); MONO % 5.4 %; NEUT % 80.8 %; PLATELET COUNT 145 K/uL (130-400); RED BLOOD COUNT 3.05 M/uL (4.2-5.4); WHITE BLOOD COUNT 7.71 K/uL (4.8-10.8)
[2017-01-20 11:30] LABS: CALCIUM 7.8 mg/dl (8.5-10.1); CREATININE 0.95 mg/dl (0.60-1.20); MAGNESIUM 1.9 mg/dl (1.8-2.4); POTASSIUM 3.3 mmol/L (3.5-5.1)
[2017-01-20 11:40] LABS: LEGIONELLA ANTIGEN NOT DETECTED (NOT DETECTED)
[2017-01-20 11:45] LABS: COMPLETE YES; STOMATOCYTE 1+
[2017-01-20] MEDS ORDERED: D5W AND 1/2NSS + 20MEQ KCL 1,000 ML IV SCH (12:00)
--- NOTE | 2017-01-20 12:00 | Pharmacy Progress Note ---
Glycemic Control: Progress Nt Date of Service January 20, 2017. Scope Glycemic Pharmacist consulted by Dr Williamson on 01/15/17 for glycemic control and to write orders per LT[facility], located within [facility] inpatient glycemic control protocol. Objective Accuchecks BSG (last 24hrs): Test 01/19/17 11:40 01/19/17 16:55 01/19/17 19:57 01/20/17 07:51 Bedside Glucose 222 mg/dl (70-90) 148 mg/dl (70-90) 109 mg/dl (70-90) 100 mg/dl (70-90) Test 01/20/17 10:45 Random Glucose 93 mg/dl (70-99) HbA1c: Test 01/16/17 05:36 Hemoglobin A1c 5.5 % (4.5-5.6) Recent Pertinent Medications Outpatient Anti-diabetic Regimen: * NovoLog sliding scale The patient is currently receiving: * Basal insulin: * Lantus 10 units SQ BID * Bolus Insulin: * NovoLog SQ AC/HS * Goal Range: Low 110 mg/dL - High 140 mg/dL * Correction Factor: 25 mg/dL/unit * Carb ratio of 1 unit per 8 grams CHO consumed Risk Factors for Insulin Resistance: * Infection * Diet: NPO for bronch Assessment & Plan ASSESSMENT: Initial: * 71yo T2DM female known to pharmacy from previous admissions/glycemic consults. * Per previous admissions, pt typically requires high dose SQ basal bolus insulin regimen on admission secondary to stress/infection which is then tapered down around 4-5 of admission once patient stabilized. * Pt admitted on 01/15/17 and was initiated on weight based dosing per stress of ~ 1.5 * Total daily insulin dose has been increasing daily - up to 55 units on 01/19/17 01/20/17 * AM fasting BSG is slightly below goal range this morning at 100mg/dl * Pt NPO for bronch this AM --> will need reduced basal insulin for NPO * AM fasting BSGs are trending downwards over the past few days --> will likely need further basal insulin dose decrease now that infection is being adequately treated and patient status improving. * Pt does not use basal insulin as an outpatient and per previous admissions basal insulin is typically held towards the end of admission * Post-prandial BSGs trending downwards by HS * Will loosen CF/CR as current orders/parameters are based on severe stress PLAN FOR INPATIENT GLYCEMIC CONTROL: * Basal insulin: * Give reduced dosing this morning for NPO; Lantus 5 units SQ x 1 * Decrease basal insulin to Lantus 10 units SQ daily in AM starting 01/21/17 * Bolus insulin: * LOOSEN NOVOLOG per scale AC/HS * Goal Range: Low 110 mg/dL - High 140 mg/dL * Correction Factor: 30 mg/dL/unit * Carb ratio of 1 unit per 10 grams CHO consumed PLAN FOR DISCHARGE: * Suspect that patient would benefit from the addition of basal insulin. Might consider adding basal insulin in addition to sliding scale coverage. * Please note that the plan above was derived based on current level of insulin resistance and hospital stress. These recommendations are appropriate for inpatient admission only. Plan of care upon discharge will need to be reassessed to avoid potential outpatient hypo/hyperglycemia. Thank you.
--- NOTE | 2017-01-20 12:05 | Bronchoscopy Procedure Note ---
Bronchoscopy Procedure Note Procedure: Bronchoscopy, conscious sedation, bronchial washing RLL Consent: Obtained through the patient placed into the chart Pre-procedural diagnosis: lobar collapse Post-procedural diagnosis: lobar collapse Start time: 1140 End time: 1152 Total time: 12mins Analgesia: 2% liquid lidocaine: Via nebulizer 4% gel lidocaine: Via right naris 2% liquid lidocaine: Via bronchoscopy Sedation: Versed IV: 2 mg Fentanyl IV: 50 g Procedure: The brick&mobile video bronchoscope was used for this procedure and passed down through the right naris Right naris/posterior naris/posterior oropharynx: Anatomically within normal limits Glottis: Anatomically within normal limits Vocal cords: Proper abduction and abduction, anatomically within normal limits Subglottis/trachea/Leigh Ann: Anatomically within normal limits Right bronchial tree: Right mainstem bronchus: Anatomically within normal limits Right upper lobe: Anatomically within normal limits Bronchus intermedius: complete mucus obstruction Right middle lobe: Anatomically within normal limits Right lower lobe: significant mucus plugging Findings: significant mucus plugging Left bronchial tree: Left mainstem bronchus: Anatomically within normal limits Left upper lobe: Anatomically within normal limits Lingula: Anatomically within normal limits Left lower lobe: moderate mucus obstruction Findings: LLL mucus plugging Bronchial Washing: RLL 80cc with 60cc returned EBL: none Complications: None Follow-up: return to inpatient room for monitoring
--- NOTE | 2017-01-20 12:06 | Procedure Note ---
Pre-Mod Sedation Assessment General Date of Moderate Sedation: January 20, 2017. Vital Signs: Vital Signs Past 12 Hours Date Time Temp Pulse Resp B/P Pulse Ox O2 Delivery O2 Flow Rate FiO2 01/20/17 11:55 62 18 124/53 96 Mask 8.0 01/20/17 11:50 61 16 119/58 99 Mask 8.0 01/20/17 11:45 62 22 118/52 100 Mask 8.0 01/20/17 11:40 59 20 133/46 100 Mask 8.0 01/20/17 11:35 58 20 114/71 100 Mask 8.0 01/20/17 11:30 62 20 131/51 100 Mask 8.0 01/20/17 11:29 36.5 59 18 128/62 98 Nasal Cannula 2.0 01/20/17 08:00 Nasal Cannula 2.0 01/20/17 07:46 36.5 59 18 128/62 98 3.0 01/20/17 04:14 37.0 61 18 128/63 99 3.0 01/20/17 04:00 Nasal Cannula 2.0 Review Cardiovascular: regular rate, rhythm, no edema, no gallop, no JVD, normal peripheral pulses, + systolic murmur Abdomen: normal bowel sounds, non tender, soft, no organomegaly, no pulsatile mass, normal rectal exam, occult blood negative Lungs: + pertinent finding (decreased BS bilateral lower lobes) Pre-Sedation Airway Assessment Oral Cavity: Dentures Able to Visualize Vocal Cords: Yes Short Thick Neck: No Hx of Sleep Apnea: Yes Smoking Status: Former Smoker Mallampati Classification: Class II ASA Classification: Class II Procedure Planning Contraindications-for Mod Sed: None Yes Notes The planned sedation has been discussed with the patient and consent obtained. I have identified the patient, determined the appropriateness of sedation and have assessed the patient immediately prior to the procedure. All medicine(s) and interventions are by my order.
--- NOTE | 2017-01-20 12:07 | Procedure Note ---
Post-Moderate Sedation Plan General Date of Moderate Sedation January 20, 2017. Vital Signs: Vital Signs Past 12 Hours Date Time Temp Pulse Resp B/P Pulse Ox O2 Delivery O2 Flow Rate FiO2 01/20/17 11:55 62 18 124/53 96 Mask 8.0 01/20/17 11:50 61 16 119/58 99 Mask 8.0 01/20/17 11:45 62 22 118/52 100 Mask 8.0 01/20/17 11:40 59 20 133/46 100 Mask 8.0 01/20/17 11:35 58 20 114/71 100 Mask 8.0 01/20/17 11:30 62 20 131/51 100 Mask 8.0 01/20/17 11:29 36.5 59 18 128/62 98 Nasal Cannula 2.0 01/20/17 08:00 Nasal Cannula 2.0 01/20/17 07:46 36.5 59 18 128/62 98 3.0 01/20/17 04:14 37.0 61 18 128/63 99 3.0 01/20/17 04:00 Nasal Cannula 2.0 Review - Discharge Plan Post Moderate Sedation Plan: On clinical assessment, the patient appears to have tolerated the conscious sedation without complications. Patient is recovering as anticipated. Return to inpatient room for monitoring
[2017-01-20] MEDS ORDERED: MIDAZOLAM HCL 5 MG/ML 1 ML VIAL IV ONE (12:30)
[2017-01-20] MEDS ORDERED: FENTANYL CITRATE INJ 50 MCG/1 ML 2 ML VIAL IV ONE (12:30)
--- NOTE | 2017-01-20 14:01 | Progress Note ---
Subjective Date of Service: January 20, 2017. Subjective Pt evaluation today including: conversation w/ patient, physical exam, chart review, lab review, review of studies, conversation w/ medical economics consultant Reports sob about the same, not worsened No fevers or chills No acute incidents overnight Problem List Medical Problems: (1) Atrial fibrillation Status: Acute (2) Bifascicular block Status: Acute (3) Cellulitis of both lower extremities Status: Acute (4) Cellulitis of foot, left Status: Acute (5) Cellulitis of left lower leg Status: Acute (6) CHF (congestive heart failure) Status: Acute (7) CHF exacerbation Status: Acute (8) Constipation Status: Acute (9) Diabetic foot ulcer Status: Acute (10) Electrolyte abnormality Status: Acute (11) Fever Status: Acute (12) Hyperkalemia Status: Acute (13) Hypokalemia Status: Acute (14) Leukocytosis Status: Acute (15) Pleural effusion, right Status: Acute (16) Sepsis Status: Acute (17) Sepsis Status: Acute (18) UTI (urinary tract infection) Status: Acute (19) UTI (urinary tract infection) Status: Acute Review of Systems Constitutional: No chills, No fever Respiratory: No cough, No dyspnea on exertion, No shortness of breath, No sputum, No wheezing Cardiac: No chest pain, No orthopnea Abdomen: No constipation, No diarrhea, No nausea, No pain, No vomiting Musculoskeletal: No joint pain, No muscle pain Female : No dysuria, No urinary frequency Psychiatric: No anxiety, No depression symptoms Objective Vital Signs Date Time Temp Pulse Resp B/P Pulse Ox O2 Delivery O2 Flow Rate FiO2 01/20/17 12:56 36.8 57 18 130/47 98 Nasal Cannula 2.0 01/20/17 12:41 Mask 01/20/17 12:10 58 20 116/45 95 Nasal Cannula 4.0 01/20/17 12:05 64 16 129/28 95 Nasal Cannula 4.0 01/20/17 12:00 Nasal Cannula 4.0 01/20/17 12:00 55 16 117/55 95 Nasal Cannula 4.0 01/20/17 11:55 62 18 124/53 96 Mask 8.0 01/20/17 11:50 61 16 119/58 99 Mask 8.0 01/20/17 11:45 62 22 118/52 100 Mask 8.0 01/20/17 11:40 59 20 133/46 100 Mask 8.0 01/20/17 11:35 58 20 114/71 100 Mask 8.0 01/20/17 11:30 62 20 131/51 100 Mask 8.0 01/20/17 11:29 36.5 59 18 128/62 98 Nasal Cannula 2.0 01/20/17 08:00 Nasal Cannula 2.0 01/20/17 07:46 36.5 59 18 128/62 98 3.0 01/20/17 04:14 37.0 61 18 128/63 99 3.0 01/20/17 04:00 Nasal Cannula 2.0 01/20/17 00:00 Nasal Cannula 2.0 01/19/17 23:50 36.7 63 18 147/75 99 3.0 01/19/17 20:08 64 18 98 Nasal Cannula 3.0 01/19/17 20:00 Nasal Cannula 2.0 01/19/17 19:11 37.0 62 20 115/61 97 Nasal Cannula 3.0 01/19/17 16:15 67 01/19/17 16:00 Nasal Cannula 3.0 01/19/17 15:03 63 18 98 Nasal Cannula 3.0 01/19/17 15:00 36.8 59 18 130/62 97 Nasal Cannula 3.0 Physical Exam General Appearance: WD/WN, no apparent distress Neck: supple, no adenopathy Respiratory/Chest: chest non-tender, + decreased breath sounds, + crackles Cardiovascular: regular rate, rhythm, no gallop Abdomen: non tender, soft Neurologic/Psychiatric: alert, oriented x 3 Laboratory Results Last 24 Hours Test 01/19/17 16:55 01/19/17 19:57 01/20/17 07:51 01/20/17 10:45 Bedside Glucose 148 mg/dl 109 mg/dl 100 mg/dl White Blood Count 7.71 K/uL Red Blood Count 3.05 M/uL Hemoglobin 8.8 g/dL Hematocrit 27.7 % Mean Corpuscular Volume 90.8 fL Mean Corpuscular Hemoglobin 28.9 pg Mean Corpuscular Hemoglobin Concent 31.8 g/dl Platelet Count 145 K/uL Mean Platelet Volume 8.6 fL Neutrophils (%) (Auto) 80.8 % Lymphocytes (%) (Auto) 7.5 % Monocytes (%) (Auto) 5.4 % Eosinophils (%) (Auto) 5.6 % Basophils (%) (Auto) 0.3 % Neutrophils # (Auto) 6.23 K/uL Lymphocytes # (Auto) 0.58 K/uL Monocytes # (Auto) 0.42 K/uL Eosinophils # (Auto) 0.43 K/uL Basophils # (Auto) 0.02 K/uL RDW Standard Deviation 61.0 fL RDW Coefficient of Variation 18.4 % Immature Granulocyte % (Auto) 0.4 % Immature Granulocyte # (Auto) 0.03 K/uL Stomatocytes 1+ Sodium Level 145 mmol/L Potassium Level 3.3 mmol/L Chloride Level 99 mmol/L Carbon Dioxide Level 41 mmol/L Anion Gap 5.0 mmol/L Blood Urea Nitrogen 14 mg/dl Creatinine 0.95 mg/dl Est Creatinine Clear Calc Drug Dose 55.8 ml/min Estimated GFR () 69.4 Estimated GFR (Non- 59.8 BUN/Creatinine Ratio 15.0 Random Glucose 93 mg/dl Calcium Level 7.8 mg/dl Magnesium Level 1.9 mg/dl Test 01/20/17 12:52 Bedside Glucose 104 mg/dl Assessment and Plan 71 y/o female, with PMHx of Diabetic foot ulcer s/p left BKA, diastolic CHF, a.fib, hypothyroidism, COPD, anxiety/depression, and GERD, who presented to the ED from [facility] because of AMS. CXR at [facility] on 01/13 showed right lower lung pneumonia and pulmonary edema; patient was treated with Levaquin and Lasix. However, patient's status continued to worsen. currently has SOB and fever. Acute hypoxic respiratory failure Multilobar pneumonia (likely HCAP) Metabolic encephalopathy Acute on chronic diastolic CHF B/L pleural effusion left BKA stump erythema and tenderness Decubitus ulcer stage 3 POA CAD/HTN/A.Fib/DMII/Hypothyroidism Diarrhea Plan: continue tele for cardiac monitoring continue IV Vancomycin and Zosyn / consult ID, agree with IV antibx for 7 days , MRSA pos CT chest without contrast to evaluate the extent of any consolidation underneath the pleural effusion Influenza swab negative Sputum Cx pending/UCx and BCx NGTD procalcitonin 0.63 DuoNebs QID and q2 hrs PRN BIPAP prn O2 protocol, wean as tolerated- wears 2L at all times CT head was normal TSH was recently normal (12/2016) 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 * Left ventricular systolic function is normal. * The left atrium is severely dilated. * The right atrium is moderately dilated. * There is mild mitral regurgitation. * Right ventricular systolic pressure is elevated at 30-40mmHg. continue sliding insulin scale coverage Continue Digoxin 125 mcg by mouth daily, Cardizem-CD 240 mg daily, and Xarelto 20 mg daily Continue Mag oxide 400 mg twice a day- mag level WNL Continue Levothyroxine 250 mcg by mouth daily Continue Advair 250/50 inhalation twice a day, Spiriva Continue Cymbalta 20 mg daily DVT prophylaxis: Xarelto Code Status: LEVEL V, DNR
[2017-01-20] MEDS: TIOTROPIUM BROMIDE 5 PUFF/90 MCG INH INH SCH (14:10)
[2017-01-20] MEDS: MAGNESIUM OXIDE 400 MG TAB PO SCH ×2 (14:31→21:15)
[2017-01-20] MEDS: PANTOprazole SOD 40 MG TAB PO SCH (14:31)
[2017-01-20] MEDS: FERROUS SULFATE 325 MG TAB PO SCH ×2 (14:32→21:00)
[2017-01-20] MEDS: ASCORBIC ACID 500 MG TAB PO SCH ×2 (14:32→21:16)
[2017-01-20] MEDS: DIGOXIN 0.25 MG TAB PO SCH (16:45)
[2017-01-20] MEDS: RIVAROXABAN 20 MG TAB PO SCH (17:00)
[2017-01-20] MEDS: GABAPENTIN 300 MG CAP PO SCH (21:15)
[2017-01-20] MEDS: HYDROCODONE/ACETAMOPHEN 5/325MG TAB PO PRN (21:30)
[2017-01-21] VITALS (9 sets, daily range): BP systolic 125–136; BP diastolic 50–70; PULSE 49–79; TEMP 36.4–37; O2SAT 95–100
[2017-01-21] MEDS: MoRPHine SULFATE 2 MG/ML CARP IV PRN ×3 (01:06→08:32)
[2017-01-21] MEDS: LEVOTHYROXINE 200 MCG TAB PO SCH (06:10)
[2017-01-21] MEDS: PIPERACILL/TAZOBAC IV 4.5 GM in DEXTROSE 5% 100ML IV SCH (06:10)
[2017-01-21] MEDS: LEVOTHYROXINE 50 MCG TAB PO SCH (06:11)
[2017-01-21 07:15] LABS: CREATININE 0.98 mg/dl (0.60-1.20)
[2017-01-21] MEDS: ALBUT/IPRATROP 3MG/0.5MG NEB 3 ML VIAL INH SCH ×4 (08:06→19:26)
--- NOTE | 2017-01-21 08:19 | DIAGNOSTIC IMAGING REPORT ---
CHEST 2 VIEWS ROUTINE CLINICAL HISTORY: bilateral atelectasis dyspnea COMPARISON STUDY: 01/20/2017 FINDINGS: Unchanging bibasilar infiltrative change. Small bowel pleural effusions. Subtle improvement in aeration pulmonary apices. Persistent cardiomegaly. IMPRESSION: Unchanging basilar infiltrative and a effusion change. Persistent cardia megaly. Electronically signed by: Castillo Thompson M.D. 01/21/2017 8:18 AM Dictated Date/Time: 01/21/2017 8:17 AM
[2017-01-21] MEDS ORDERED: LIDOCAINE HCL 2% LOCAL 50ML VIAL INFIL ONE (08:28)
[2017-01-21] MEDS ORDERED: MIDAZOLAM HCL 5 MG/ML 1 ML VIAL IV ONE (08:28)
[2017-01-21] MEDS ORDERED: LIDOCAINE 4% INH SOLN 4 ML BTL ONE (08:28)
[2017-01-21] MEDS ORDERED: FENTANYL CITRATE INJ 50 MCG/1 ML 2 ML VIAL IV ONE (08:28)
[2017-01-21] MEDS: LACTOBACILLUS ACIDOPHILUS 1 GM PACK PO SCH ×3 (08:35→17:02)
[2017-01-21] MEDS: FERROUS SULFATE 325 MG TAB PO SCH ×2 (08:35→20:48)
[2017-01-21] MEDS: ASCORBIC ACID 500 MG TAB PO SCH ×2 (08:36→20:49)
[2017-01-21] MEDS: MAGNESIUM OXIDE 400 MG TAB PO SCH ×2 (08:36→20:50)
[2017-01-21] MEDS: POTASSIUM CHLORIDE 20 MEQ TABCR PO SCH ×2 (08:36→20:49)
[2017-01-21] MEDS: FLUTICASONE/SALMETEROL 250/50 (ADVAIR) 14 PUFF/1 INHALER INH SCH ×2 (08:37→20:46)
[2017-01-21] MEDS: PANTOprazole SOD 40 MG TAB PO SCH (08:37)
[2017-01-21] MEDS: DULOXETINE HCL 20 MG CAP PO SCH (09:00)
[2017-01-21] MEDS: TIOTROPIUM BROMIDE 5 PUFF/90 MCG INH INH SCH (09:00)
[2017-01-21] MEDS: FUROSEMIDE INJ 40 MG in SYRINGE 0 ML IV SCH ×2 (09:14→17:04)
[2017-01-21] MEDS: INSULIN GLARGINE SOLOSTAR 100 UNITS/ML 3 ML PEN SC SCH (09:26)
[2017-01-21] MEDS: INSULIN ASPART 100 UNITS/ML 3 ML PEN SC SCH ×4 (09:26→20:47)
--- NOTE | 2017-01-21 10:50 | Infectious Disease Progress Nt ---
Progress Note Date of Service January 21, 2017. Subjective Pt evaluation today including: conversation w/ patient, physical exam, chart review, lab review, review of studies, review of inpatient medication list Patient is feeling improved this morning. She continues to have no and off nagging cough, but otherwise denies fever, sweats, chills, N/V/D, or increasing pain in her left amputation site. She states she has had some continued pain of the left stump but this is reasonably well controlled on current pain medication. She did undergo bronchoscopy from which cultures are currently pending. She was noted to have significant mucus plugging in certain areas of her lungs. She is feeling better following bronchoscopy. Creatinine is stable at 0.98. She has completed days of Vancomycin and Zosyn. All Other Systems: Reviewed and Negative Medications Current Inpatient Medications Medications (Trade) Dose Ordered Sig/Hans Route Start Time Stop Time Status Last Admin Dose Admin Acetaminophen (Tylenol Tab) 650 mg Q4H PRN PO 01/14/17 16:00 02/13/17 15:59 01/15/17 12:06 650 MG Al Hydrox/Mg Hydrox/Simethicone (Maalox Max Susp) 15 ml Q4H PRN PO 01/14/17 16:00 02/13/17 15:59 Magnesium Hydroxide (Milk Of Magnesia Susp) 30 ml Q12H PRN PO 01/14/17 16:00 02/13/17 15:59 Ondansetron HCl (Zofran Inj) 4 mg Q6H PRN IV 01/14/17 16:00 02/13/17 15:59 Nitroglycerin (Nitrostat Tab) 0.4 mg UD PRN SL 01/14/17 16:00 02/13/17 15:59 Polyethylene 17 gm 17 gm DAILY PRN PO 01/14/17 16:00 02/13/17 15:59 Furosemide/Syringe (Lasix Inj/ Syringe) 4 ml @ 4 mls/min BID17 IV 01/14/17 19:00 02/13/17 18:59 01/21/17 09:14 4 MLS/MIN Ascorbic Acid (Vitamin C Tab) 500 mg BID PO 01/14/17 21:00 02/13/17 20:59 01/21/17 08:36 500 MG Digoxin (Lanoxin Tab) 0.25 mg DAILY@16 PO 01/14/17 16:00 02/13/17 15:59 01/20/17 16:45 0.25 MG Duloxetine HCl (Cymbalta Cap) 20 mg QAM PO 01/15/17 09:00 02/14/17 08:59 01/19/17 08:36 20 MG Ferrous Sulfate (Feosol Tab) 325 mg BID PO 01/14/17 21:00 02/13/17 20:59 01/21/17 08:35 325 MG Salmeterol Xinafoate/ Fluticasone (Advair Diskus 250/50 Inh) 1 puff BID INH 01/14/17 21:00 02/13/17 20:59 01/21/17 08:37 1 PUFF Gabapentin (Neurontin Cap) 300 mg HS PO 01/14/17 21:00 02/13/17 20:59 01/20/17 21:15 300 MG Acetaminophen/ Hydrocodone Bitart ([place] 5/325 Tab) 1 tab Q6H PRN PO 01/14/17 16:00 01/28/17 15:59 01/20/17 21:30 1 TAB Levothyroxine Sodium (Synthroid Tab) 50 mcg DAILYBB PO 01/15/17 06:30 02/14/17 06:59 01/21/17 06:11 50 MCG Levothyroxine Sodium (Synthroid Tab) 200 mcg DAILYBB PO 01/15/17 06:30 02/14/17 06:59 01/21/17 06:10 200 MCG Loperamide HCl (Imodium Cap) 2 mg UD PRN PO 01/14/17 16:00 02/13/17 15:59 01/18/17 12:33 2 MG Lorazepam (Ativan Tab) 0.5 mg BID PRN PO 01/14/17 16:00 02/13/17 15:59 Magnesium Oxide (Mag-Ox Tab) 400 mg BID PO 01/14/17 21:00 02/13/17 20:59 01/21/17 08:36 400 MG Rivaroxaban (Xarelto Tab) 20 mg QDD PO 01/14/17 19:00 02/13/17 18:59 01/20/17 17:00 20 MG Tiotropium [place] (Spiriva Handihaler Inhaler) 1 puff DAILY INH 01/15/17 09:00 02/14/17 08:59 01/19/17 08:38 1 PUFF Tramadol HCl (Ultram Tab) 50 mg Q8H PRN PO 01/14/17 16:00 02/13/17 15:59 01/19/17 20:25 50 MG Pantoprazole Sodium (Protonix Tab) 40 mg QAM PO 01/15/17 09:00 02/14/17 08:59 01/21/17 08:37 40 MG Albuterol/ Ipratropium 3 ml 3 ml QIDR INH 01/14/17 16:00 02/13/17 15:59 01/21/17 08:06 3 ML Piperacillin Sod/ Tazobactam Sod/ Dextrose (Zosyn Iv/D5 100ml) 120 ml @ 30 mls/hr Q8H IV 01/14/17 22:00 01/21/17 13:59 01/21/17 06:10 30 MLS/HR Glucose (Glucose 40% Gel) 15-30 GRAMS 15 GRAMS... UD PRN PO 01/15/17 06:00 02/14/17 05:59 Glucose (Glucose Chew Tab) 4-8 Tablets 4 Tabl... UD PRN PO 01/15/17 06:00 02/14/17 05:59 Dextrose (Dextrose 50% 50ML Syringe) 25-50ML OF 50% DW IV FOR... UD PRN IV 01/15/17 06:00 02/14/17 05:59 Glucagon (Glucagon Inj) 1 mg UD PRN SQ 01/15/17 06:00 02/14/17 05:59 Miscellaneous Information (Consult Glycemic Management Pharmacy) 1 ea UD PRN N/A 01/15/17 15:15 02/14/17 15:14 Lactobacillus Acidophilus (Lactinex Granules Pack) 1 gm TIDM PO 01/16/17 08:00 02/15/17 07:59 01/21/17 08:35 1 GM Miconazole Nitrate (Desenex Powder) 1 appln UD PRN EXT 01/15/17 19:00 02/14/17 18:59 01/16/17 10:55 1 APPLN Insulin Aspart (novoLOG ASPART) SLIDING SCALE If C... ACHS SC 01/16/17 06:30 02/15/17 06:29 01/21/17 09:26 5 UNITS Sodium Chloride ([place] Nasal [place]) 1 sprays PRN PRN NA 01/18/17 11:15 02/17/17 11:14 Potassium Chloride (Klor-Con Tab) 40 meq BID PO 01/19/17 21:00 02/18/17 20:59 01/21/17 08:36 40 MEQ Insulin Glargine (Lantus Solostar Pen) 10 unit DAILY SC 01/21/17 09:00 02/20/17 08:59 01/21/17 09:26 10 UNIT Morphine Sulfate (MoRPHine SULFATE INJ) 2 mg Q4H PRN IV 01/20/17 23:45 02/03/17 23:44 01/21/17 08:32 2 MG Objective Vital Signs Date Time Temp Pulse Resp B/P Pulse Ox O2 Delivery O2 Flow Rate FiO2 01/21/17 08:07 79 18 95 Nasal Cannula 3.0 01/21/17 08:00 Nasal Cannula 2.0 01/21/17 07:22 36.4 59 1 136/70 100 Nasal Cannula 3.0 01/21/17 04:00 Nasal Cannula 2.0 01/21/17 00:01 36.9 65 20 125/63 97 3.0 01/21/17 00:00 Nasal Cannula 2.0 01/20/17 22:14 97 Nasal Cannula 2.0 01/20/17 20:16 36.6 67 20 134/56 97 Nasal Cannula 2.0 01/20/17 19:19 59 18 98 Nasal Cannula 3.0 01/20/17 16:45 66 01/20/17 16:00 Nasal Cannula 2.0 01/20/17 15:40 36.8 64 18 148/65 98 Nasal Cannula 4.0 01/20/17 15:21 86 18 95 Nasal Cannula 4.0 01/20/17 12:56 36.8 57 18 130/47 98 Nasal Cannula 2.0 01/20/17 12:41 Mask 01/20/17 12:10 58 20 116/45 95 Nasal Cannula 4.0 01/20/17 12:05 64 16 129/28 95 Nasal Cannula 4.0 01/20/17 12:00 Nasal Cannula 4.0 01/20/17 12:00 55 16 117/55 95 Nasal Cannula 4.0 01/20/17 11:55 62 18 124/53 96 Mask 8.0 01/20/17 11:50 61 16 119/58 99 Mask 8.0 01/20/17 11:45 62 22 118/52 100 Mask 8.0 01/20/17 11:40 59 20 133/46 100 Mask 8.0 01/20/17 11:35 58 20 114/71 100 Mask 8.0 01/20/17 11:30 62 20 131/51 100 Mask 8.0 01/20/17 11:29 36.5 59 18 128/62 98 Nasal Cannula 2.0 Physical Exam General Appearance: WD/WN, no apparent distress Eyes: normal inspection, sclerae normal ENT: hearing grossly normal Neck: supple, trachea midline Respiratory/Chest: chest non-tender, lungs clear, no respiratory distress, no accessory muscle use Cardiovascular: regular rate, rhythm, + systolic murmur Abdomen: normal bowel sounds, non tender, soft Extremities: + pertinent finding (left BKA- site appears to be healing well. Very mild darkened skin around healing site) Neurologic/Psychiatric: alert, normal mood/affect Skin: normal color, warm/dry, no rash Laboratory Results Item Value Date Time Fungal Smear - Final Resulted 01/20/17 0000 Bronchial Washings Right Lower Lobe Gram Stain - Final Resulted 01/20/17 0000 Bronchial Washings Right Lower Lobe Acid Fast Stain Received 01/20/17 0000 Bronchial Washings Right Lower Lobe Pending Last 24 Hours Test 01/20/17 12:52 01/20/17 15:59 01/20/17 20:49 01/21/17 06:02 Bedside Glucose 104 mg/dl 111 mg/dl 158 mg/dl Creatinine 0.98 mg/dl Est Creatinine Clear Calc Drug Dose 54.0 ml/min Estimated GFR () 66.8 Estimated GFR (Non- 57.6 Test 01/21/17 07:30 Bedside Glucose 184 mg/dl Assessment and Plan (1) Pneumonia of both lower lobes Patient with probable left upper lobe pneumonia/inflammatory lung process versus HCAp and very small wound of the left BKA amputation site. MRSA nasal swab was positive. Patient has completed 7 days of IV Vancomycin and Zosyn. She is doing much better. Feel that she likely can discontinue abx therapy and will be OK for D/C from ID perspective once cleared medically. Thank you Case reviewed and agree with above assessment.
[2017-01-21] MEDS ORDERED: INSDGIPEN SC (12:54)
--- NOTE | 2017-01-21 12:55 | Discharge Instructions ---
Discharge Instructions Date of Service January 21, 2017. Admission Reason for Admission: CHF Discharge Discharge Diagnosis / Problem: CHF Discharge Goals Goal(s): Decrease discomfort, Improve function, Increase independence, Improve disease control, Diagnostic testing, Therapeutic intervention Activity Recommendations Activity Limitations: resume your previous activity Exercise/Sports Limitations: none . Instructions / Follow-Up Instructions / Follow-Up Patient to be discharged back to [facility] COmpleted bronchoscopy with mucus plugging noted Ok to resume all diuretics including spirolactone at home dose Will need to start on lantus 10 units daily Current Hospital Diet Patient's current hospital diet: AHA Diet (Heart Healthy), Diabetes Type 2 Diet Discharge Diet Recommended Diet: AHA Diet (Heart Healthy), Diabetes Type 2 Diet Pending Studies Studies pending at discharge: no Laboratory Results Hemoglobin A1c Test 01/16/17 05:36 Range/Units Estimated Average Glucose 111 mg/dl Hemoglobin A1c 5.5 4.5-5.6 % Medical Emergencies . Who to Call and When: Medical Emergencies: If at any time you feel your situation is an emergency, please call 911 immediately. . Non-Emergent Contact Non-Emergency issues call your: Primary Care Provider Call Non-Emergent contact if: you have a fever, your pain is worsening . . "Provider Documentation" section prepared by Boris Gross. . VTE Core Measure Inpt VTE Proph given/why not?: Other Anticoagulation, T.E.D. Stockings, SCD's
[2017-01-21] MEDS: HYDROCODONE/ACETAMOPHEN 5/325MG TAB PO PRN (13:11)
[2017-01-21] MEDS: HYDROCODONE/ACETAMINOPHEN 7.5/325MG TAB PO PRN (15:30)
[2017-01-21] MEDS: DIGOXIN 0.25 MG TAB PO SCH (16:11)
--- NOTE | 2017-01-21 16:29 | Progress Note ---
Subjective Date of Service: January 21, 2017. Subjective Pt evaluation today including: conversation w/ patient, physical exam, chart review, lab review, review of studies, review of inpatient medication list Problem List Medical Problems: (1) Atrial fibrillation Status: Acute (2) Bifascicular block Status: Acute (3) Cellulitis of both lower extremities Status: Acute (4) Cellulitis of foot, left Status: Acute (5) Cellulitis of left lower leg Status: Acute (6) CHF (congestive heart failure) Status: Acute (7) CHF exacerbation Status: Acute (8) Constipation Status: Acute (9) Diabetic foot ulcer Status: Acute (10) Electrolyte abnormality Status: Acute (11) Fever Status: Acute (12) Hyperkalemia Status: Acute (13) Hypokalemia Status: Acute (14) Leukocytosis Status: Acute (15) Pleural effusion, right Status: Acute (16) Sepsis Status: Acute (17) Sepsis Status: Acute (18) UTI (urinary tract infection) Status: Acute (19) UTI (urinary tract infection) Status: Acute Review of Systems Constitutional: No chills, No fever Respiratory: + cough, No dyspnea on exertion, No shortness of breath, No sputum , No wheezing Cardiac: No chest pain, No orthopnea Abdomen: No diarrhea, No nausea, No pain, No vomiting Musculoskeletal: + joint pain, + muscle pain Female : No dysuria, No urinary frequency Objective Vital Signs Date Time Temp Pulse Resp B/P Pulse Ox O2 Delivery O2 Flow Rate FiO2 01/21/17 16:11 65 01/21/17 16:00 Nasal Cannula 2.0 01/21/17 15:37 62 18 97 Nasal Cannula 3.0 01/21/17 14:21 36.9 49 20 98 Nasal Cannula 01/21/17 12:18 36.9 49 20 135/50 98 01/21/17 12:00 Nasal Cannula 2.0 01/21/17 11:06 49 18 98 Nasal Cannula 3.0 01/21/17 08:07 79 18 95 Nasal Cannula 3.0 01/21/17 08:00 Nasal Cannula 2.0 01/21/17 07:22 36.4 59 1 136/70 100 Nasal Cannula 3.0 01/21/17 04:00 Nasal Cannula 2.0 01/21/17 00:01 36.9 65 20 125/63 97 3.0 01/21/17 00:00 Nasal Cannula 2.0 01/20/17 22:14 97 Nasal Cannula 2.0 01/20/17 20:16 36.6 67 20 134/56 97 Nasal Cannula 2.0 01/20/17 19:19 59 18 98 Nasal Cannula 3.0 01/20/17 16:45 66 Physical Exam General Appearance: WD/WN, + mild distress Neck: supple, no adenopathy Respiratory/Chest: chest non-tender, normal breath sounds Cardiovascular: no gallop, no JVD Abdomen: non tender, soft Neurologic/Psychiatric: alert, normal mood/affect Laboratory Results Last 24 Hours Test 01/20/17 20:49 01/21/17 06:02 01/21/17 07:30 01/21/17 12:10 Bedside Glucose 158 mg/dl 184 mg/dl 249 mg/dl Creatinine 0.98 mg/dl Est Creatinine Clear Calc Drug Dose 54.0 ml/min Estimated GFR () 66.8 Estimated GFR (Non- 57.6 Assessment and Plan 71 y/o female, with PMHx of Diabetic foot ulcer s/p left BKA, diastolic CHF, a.fib, hypothyroidism, COPD, anxiety/depression, and GERD, who presented to the ED from [facility] because of AMS. CXR at [facility] on 01/13 showed right lower lung pneumonia and pulmonary edema; patient was treated with Levaquin and Lasix. However, patient's status continued to worsen. currently has SOB and fever. Acute hypoxic respiratory failure Multilobar pneumonia (likely HCAP) Metabolic encephalopathy Acute on chronic diastolic CHF B/L pleural effusion left BKA stump erythema and tenderness Decubitus ulcer stage 3 POA CAD/HTN/A.Fib/DMII/Hypothyroidism Diarrhea Plan: continue tele for cardiac monitoring continue IV Vancomycin and Zosyn / consult ID, agree with IV antibx for 7 days , MRSA pos CT chest without contrast to evaluate the extent of any consolidation underneath the pleural effusion Influenza swab negative Sputum Cx pending/UCx and BCx NGTD procalcitonin 0.63 DuoNebs QID and q2 hrs PRN BIPAP prn O2 protocol, wean as tolerated- wears 2L at all times CT head was normal TSH was recently normal (12/2016) consult front desk clerk continue IV Lasix 40 mg BID Worsening bilateral plural effusions noted on 01/20, pt for bronchoscopy with significant mucus plugging found in right bronchial tree c diff neg Monitor I&Os and daily weights Johnston placed - ECHO 12/30/16: * There is borderline concentric left ventricular hypertrophy. * Left ventricular systolic function is normal. * The left atrium is severely dilated. * The right atrium is moderately dilated. * There is mild mitral regurgitation. * Right ventricular systolic pressure is elevated at 30-40mmHg. continue sliding insulin scale coverage Continue Digoxin 125 mcg by mouth daily, Cardizem-CD 240 mg daily, and Xarelto 20 mg daily Continue Mag oxide 400 mg twice a day- mag level WNL Continue Levothyroxine 250 mcg by mouth daily Continue Advair 250/50 inhalation twice a day, Spiriva Continue Cymbalta 20 mg daily DVT prophylaxis: Xarelto Code Status: LEVEL V, DNR
[2017-01-21] MEDS: RIVAROXABAN 20 MG TAB PO SCH (17:03)
--- NOTE | 2017-01-21 18:32 | Pulmonology Progress Note ---
Pulmonary Progress Note Date of Service January 21, 2017. Attending Dr. Cortes Subjective Patient notes dramatic improvement in her SOB/dyspnea s/p bronchoscope Objective No signs of tachypnea, no accessory muscle use and able to complete full sentences VS: stable on 2-3Lnc RESP: decreased BS bilateral basses with US showing moderate bilateral pleural effusions CARD: S1S2 but unable to auscultate for m/r/g EXT: 1+ pitting edema RLL, AKA left sided CXR: (01/21/17) no acute changes Assessment & Plan 71 y/o female admitted with multifactorial dyspnea and continued bilateral lower lobe opacifications/pleural efffusions: 1) Dyspnea: patient doing well s/p bronchoscopy and I have recommended we perform thoracentesis at this time as the lung will now re-expand (obstructing mucus plugs removed). I informed the patient she is high risk for pneumonia and repeat respiratory distress but she is note interested in having any procedures at this time. 2) Sign-off : Please get a hold fo the pulmonary service if the patient's condition changes or she would like to a her pleural effusions re-evaluated. Data Medications: Current Inpatient Medications Medications (Trade) Dose Ordered Sig/Hans Route Start Time Stop Time Status Last Admin Dose Admin Acetaminophen (Tylenol Tab) 650 mg Q4H PRN PO 01/14/17 16:00 02/13/17 15:59 01/15/17 12:06 650 MG Al Hydrox/Mg Hydrox/Simethicone (Maalox Max Susp) 15 ml Q4H PRN PO 01/14/17 16:00 02/13/17 15:59 Magnesium Hydroxide (Milk Of Magnesia Susp) 30 ml Q12H PRN PO 01/14/17 16:00 02/13/17 15:59 Ondansetron HCl (Zofran Inj) 4 mg Q6H PRN IV 01/14/17 16:00 02/13/17 15:59 Nitroglycerin (Nitrostat Tab) 0.4 mg UD PRN SL 01/14/17 16:00 02/13/17 15:59 Polyethylene 17 gm 17 gm DAILY PRN PO 01/14/17 16:00 02/13/17 15:59 Furosemide/Syringe (Lasix Inj/ Syringe) 4 ml @ 4 mls/min BID17 IV 01/14/17 19:00 02/13/17 18:59 01/21/17 17:04 4 MLS/MIN Ascorbic Acid (Vitamin C Tab) 500 mg BID PO 01/14/17 21:00 02/13/17 20:59 01/21/17 08:36 500 MG Digoxin (Lanoxin Tab) 0.25 mg DAILY@16 PO 01/14/17 16:00 02/13/17 15:59 01/21/17 16:11 0.25 MG Duloxetine HCl (Cymbalta Cap) 20 mg QAM PO 01/15/17 09:00 02/14/17 08:59 01/19/17 08:36 20 MG Ferrous Sulfate (Feosol Tab) 325 mg BID PO 01/14/17 21:00 02/13/17 20:59 01/21/17 08:35 325 MG Salmeterol Xinafoate/ Fluticasone (Advair Diskus 250/50 Inh) 1 puff BID INH 01/14/17 21:00 02/13/17 20:59 01/21/17 08:37 1 PUFF Gabapentin (Neurontin Cap) 300 mg HS PO 01/14/17 21:00 02/13/17 20:59 01/20/17 21:15 300 MG Levothyroxine Sodium (Synthroid Tab) 50 mcg DAILYBB PO 01/15/17 06:30 02/14/17 06:59 01/21/17 06:11 50 MCG Levothyroxine Sodium (Synthroid Tab) 200 mcg DAILYBB PO 01/15/17 06:30 02/14/17 06:59 01/21/17 06:10 200 MCG Loperamide HCl (Imodium Cap) 2 mg UD PRN PO 01/14/17 16:00 02/13/17 15:59 01/18/17 12:33 2 MG Lorazepam (Ativan Tab) 0.5 mg BID PRN PO 01/14/17 16:00 02/13/17 15:59 Magnesium Oxide (Mag-Ox Tab) 400 mg BID PO 01/14/17 21:00 02/13/17 20:59 01/21/17 08:36 400 MG Rivaroxaban (Xarelto Tab) 20 mg QDD PO 01/14/17 19:00 02/13/17 18:59 01/21/17 17:03 20 MG Tiotropium [place] (Spiriva Handihaler Inhaler) 1 puff DAILY INH 01/15/17 09:00 02/14/17 08:59 01/19/17 08:38 1 PUFF Tramadol HCl (Ultram Tab) 50 mg Q8H PRN PO 01/14/17 16:00 02/13/17 15:59 01/19/17 20:25 50 MG Pantoprazole Sodium (Protonix Tab) 40 mg QAM PO 01/15/17 09:00 02/14/17 08:59 01/21/17 08:37 40 MG Albuterol/ Ipratropium (Duoneb) 3 ml QIDR INH 01/14/17 16:00 02/13/17 15:59 01/21/17 15:37 3 ML Glucose (Glucose 40% Gel) 15-30 GRAMS 15 GRAMS... UD PRN PO 01/15/17 06:00 02/14/17 05:59 Glucose (Glucose Chew Tab) 4-8 Tablets 4 Tabl... UD PRN PO 01/15/17 06:00 02/14/17 05:59 Dextrose (Dextrose 50% 50ML Syringe) 25-50ML OF 50% DW IV FOR... UD PRN IV 01/15/17 06:00 02/14/17 05:59 Glucagon (Glucagon Inj) 1 mg UD PRN SQ 01/15/17 06:00 02/14/17 05:59 Miscellaneous Information (Consult Glycemic Management Pharmacy) 1 ea UD PRN N/A 01/15/17 15:15 02/14/17 15:14 Lactobacillus Acidophilus (Lactinex Granules Pack) 1 gm TIDM PO 01/16/17 08:00 02/15/17 07:59 01/21/17 17:02 1 GM Miconazole Nitrate (Desenex Powder) 1 appln UD PRN EXT 01/15/17 19:00 02/14/17 18:59 01/16/17 10:55 1 APPLN Insulin Aspart (novoLOG ASPART) SLIDING SCALE If C... ACHS SC 01/16/17 06:30 02/15/17 06:29 01/21/17 17:53 6 UNITS Sodium Chloride (Mobile Nasal [place]) 1 sprays PRN PRN NA 01/18/17 11:15 6/12/17 11:14 Potassium Chloride (Klor-Con Tab) 40 meq BID PO 01/19/17 21:00 02/18/17 20:59 01/21/17 08:36 40 MEQ Insulin Glargine (Lantus Solostar Pen) 10 unit DAILY SC 01/21/17 09:00 02/20/17 08:59 01/21/17 09:26 10 UNIT Acetaminophen/ Hydrocodone Bitart ([place] 7.5/325 Tab) 1 tab Q4 PRN PO 01/21/17 12:45 02/04/17 12:44 01/21/17 15:30 1 TAB I & O: 24-Hour Column 01/21/17 07:59 Intake Total 1575 ml Output Total 3000 ml Balance -1425 ml Vital Signs: Date Time Temp Pulse Resp B/P Pulse Ox O2 Delivery O2 Flow Rate FiO2 01/21/17 16:11 65 01/21/17 16:00 Nasal Cannula 2.0 01/21/17 15:37 62 18 97 Nasal Cannula 3.0 01/21/17 14:21 36.9 49 20 98 Nasal Cannula 01/21/17 12:18 36.9 49 20 135/50 98 01/21/17 12:00 Nasal Cannula 2.0 01/21/17 11:06 49 18 98 Nasal Cannula 3.0 01/21/17 08:07 79 18 95 Nasal Cannula 3.0 01/21/17 08:00 Nasal Cannula 2.0 01/21/17 07:22 36.4 59 1 136/70 100 Nasal Cannula 3.0 01/21/17 04:00 Nasal Cannula 2.0 01/21/17 00:01 36.9 65 20 125/63 97 3.0 01/21/17 00:00 Nasal Cannula 2.0 01/20/17 22:14 97 Nasal Cannula 2.0 01/20/17 20:16 36.6 67 20 134/56 97 Nasal Cannula 2.0 01/20/17 19:19 59 18 98 Nasal Cannula 3.0 Laboratory Results: Last 24 Hours Test 01/20/17 20:49 01/21/17 06:02 01/21/17 07:30 01/21/17 12:10 Bedside Glucose 158 mg/dl 184 mg/dl 249 mg/dl Creatinine 0.98 mg/dl Est Creatinine Clear Calc Drug Dose 54.0 ml/min Estimated GFR () 66.8 Estimated GFR (Non- 57.6 Test 01/21/17 16:46 Bedside Glucose 111 mg/dl
[2017-01-21] MEDS: GABAPENTIN 300 MG CAP PO SCH (20:48)
[2017-01-22] VITALS (8 sets, daily range): BP systolic 141–149; BP diastolic 56–66; PULSE 59–72; TEMP 36.6–37; O2SAT 97–100
[2017-01-22] MEDS: LEVOTHYROXINE 200 MCG TAB PO SCH (05:58)
[2017-01-22] MEDS: LEVOTHYROXINE 50 MCG TAB PO SCH (05:58)
[2017-01-22] MEDS: ALBUT/IPRATROP 3MG/0.5MG NEB 3 ML VIAL INH SCH ×3 (07:54→15:17)
[2017-01-22] MEDS: LACTOBACILLUS ACIDOPHILUS 1 GM PACK PO SCH ×2 (08:31→13:12)
[2017-01-22] MEDS: DULOXETINE HCL 20 MG CAP PO SCH (08:33)
[2017-01-22] MEDS: FERROUS SULFATE 325 MG TAB PO SCH (08:34)
[2017-01-22] MEDS: MAGNESIUM OXIDE 400 MG TAB PO SCH (08:35)
[2017-01-22] MEDS: ASCORBIC ACID 500 MG TAB PO SCH (08:36)
[2017-01-22] MEDS: POTASSIUM CHLORIDE 20 MEQ TABCR PO SCH (08:36)
[2017-01-22] MEDS: PANTOprazole SOD 40 MG TAB PO SCH (08:36)
[2017-01-22] MEDS: TIOTROPIUM BROMIDE 5 PUFF/90 MCG INH INH SCH (08:38)
[2017-01-22] MEDS: FLUTICASONE/SALMETEROL 250/50 (ADVAIR) 14 PUFF/1 INHALER INH SCH (08:40)
[2017-01-22] MEDS: INSULIN ASPART 100 UNITS/ML 3 ML PEN SC SCH ×2 (08:47→13:16)
[2017-01-22] MEDS: INSULIN GLARGINE SOLOSTAR 100 UNITS/ML 3 ML PEN SC SCH (08:48)
[2017-01-22] MEDS: FUROSEMIDE INJ 40 MG in SYRINGE 0 ML IV SCH (08:54)
[2017-01-22] MEDS: HYDROCODONE/ACETAMINOPHEN 7.5/325MG TAB PO PRN ×2 (09:02→15:03)
--- NOTE | 2017-01-22 13:54 | Pharmacy Progress Note ---
Glycemic Control: Progress Nt Date of Service January 22, 2017. Scope Glycemic Pharmacist consulted by Dr Williamson on 01/15/17 for glycemic control and to write orders per [facility] inpatient glycemic control protocol. Objective Accuchecks BSG (last 24hrs): Test 01/21/17 16:46 01/21/17 20:40 01/22/17 06:59 01/22/17 11:40 Bedside Glucose 111 mg/dl (70-90) 147 mg/dl (70-90) 236 mg/dl (70-90) 265 mg/dl (70-90) HbA1c: Test 01/16/17 05:36 Hemoglobin A1c 5.5 % (4.5-5.6) Recent Pertinent Medications Outpatient Anti-diabetic Regimen: * Lantus 10 units HS plus Novolog sliding scale The patient is currently receiving: * Basal insulin: Lantus 10 units every 24 hours in the morning * Correctional Insulin: Novolog Correction per scale ACHS Goal Range: Low 110 mg/dL - High 140 mg/dL Correction Factor: 25 mg/dL/unit * Prandial insulin: Per carb ratio of 1 unit per 8 grams CHO consumed Risk Factors for Insulin Resistance: * Diet: type 2 diet Assessment & Plan ASSESSMENT: * ADA & AACE recommend a goal blood sugar range 140-180 mg/dl for the majority of critically ill & non-critically ill patients. However, more stringent targets may be selected in individual cases. Will utilize more stringent goal of 110-140mg/dl based on patient age & comorbidities. Additionally, tighter glycemic control is warranted to facilitate wound/infection healing. * Ms Gloria is a 71 y/O F well known to the glycemic service who was admitted with PNA/COPD exacerbation on 01/15/2017. As per this admission and previous admissions, her blood sugars are very labile and she is very brittle. * Currently, she received 13 units on Friday and then 35 units on Friday with blood sugars ranging between 93-259 mg/dL. Currently, her fasting blood sugar is 236 mg/dL which indicates her basal needs may not be met. It appears that 10 units/day of Lantus may not suffice and that 20 units/day is too much. Therefore , an additional 5 units of Lantus will be added at bedtime. Her correctional insulin was tightened yesterday and this will be continued. PLAN FOR INPATIENT GLYCEMIC CONTROL: * INCREASING Lantus to 10 units SQ in morning and 5 units SQ in evening * Continuing correction factor of 25 mg/dl/unit * Continuing carb ratio of 1 unit per 8 grams CHO consumed * Continuing goal range of Low 110 mg/dL - High 140 mg/dL * Please note that the plan above was derived based on current level of insulin resistance and hospital stress. These recommendations are appropriate for inpatient admission only. Plan of care upon discharge will need to be reassessed to avoid potential outpatient hypo/hyperglycemia. Thank you.
--- NOTE | 2017-01-22 14:31 | Progress Note ---
Subjective Date of Service: January 22, 2017. Subjective Pt evaluation today including: conversation w/ patient, conversation w/ family , physical exam, chart review, lab review, review of studies, review of inpatient medication list Pt reports fed up with diet Wanting to get out of here No acute events overnight No worsening sob, cough, fevers or chills Resting comfortably in bed Problem List Medical Problems: (1) Atrial fibrillation Status: Acute (2) Bifascicular block Status: Acute (3) Cellulitis of both lower extremities Status: Acute (4) Cellulitis of foot, left Status: Acute (5) Cellulitis of left lower leg Status: Acute (6) CHF (congestive heart failure) Status: Acute (7) CHF exacerbation Status: Acute (8) Constipation Status: Acute (9) Diabetic foot ulcer Status: Acute (10) Electrolyte abnormality Status: Acute (11) Fever Status: Acute (12) Hyperkalemia Status: Acute (13) Hypokalemia Status: Acute (14) Leukocytosis Status: Acute (15) Pleural effusion, right Status: Acute (16) Sepsis Status: Acute (17) Sepsis Status: Acute (18) UTI (urinary tract infection) Status: Acute (19) UTI (urinary tract infection) Status: Acute Review of Systems Constitutional: No chills, No fever Respiratory: No cough, No dyspnea on exertion, No shortness of breath, No sputum, No wheezing Cardiac: No chest pain, No orthopnea Abdomen: No constipation, No diarrhea, No nausea, No pain, No vomiting Musculoskeletal: No joint pain, No muscle pain Objective Vital Signs Date Time Temp Pulse Resp B/P Pulse Ox O2 Delivery O2 Flow Rate FiO2 01/22/17 11:22 64 18 97 Nasal Cannula 2.0 01/22/17 08:30 Nasal Cannula 2.0 01/22/17 07:54 67 18 98 Nasal Cannula 2.0 01/22/17 07:27 36.6 72 18 144/65 98 Nasal Cannula 2.0 01/22/17 04:27 36.9 59 18 141/62 99 Nasal Cannula 2.0 01/22/17 00:13 37.0 64 18 147/66 98 3.0 01/22/17 00:00 Nasal Cannula 2.0 01/21/17 20:28 37.0 68 18 136/55 97 Nasal Cannula 2.0 01/21/17 19:31 69 18 97 Nasal Cannula 2.0 01/21/17 16:11 65 01/21/17 16:00 Nasal Cannula 2.0 01/21/17 15:37 62 18 97 Nasal Cannula 3.0 Physical Exam General Appearance: WD/WN, no apparent distress Neck: supple, no adenopathy Respiratory/Chest: chest non-tender, + decreased breath sounds Cardiovascular: no edema, no gallop Abdomen: non tender, soft Neurologic/Psychiatric: alert, normal mood/affect Laboratory Results Last 24 Hours Test 01/21/17 16:46 01/21/17 20:40 01/22/17 06:59 01/22/17 11:40 Bedside Glucose 111 mg/dl 147 mg/dl 236 mg/dl 265 mg/dl Assessment and Plan 71 y/o female, with PMHx of Diabetic foot ulcer s/p left BKA, diastolic CHF, a.fib, hypothyroidism, COPD, anxiety/depression, and GERD, who presented to the ED from [facility] because of AMS. CXR at [facility] on 01/13 showed right lower lung pneumonia and pulmonary edema; patient was treated with Levaquin and Lasix. However, patient's status continued to worsen. currently has SOB and fever. Acute hypoxic respiratory failure Multilobar pneumonia (likely HCAP) Metabolic encephalopathy Acute on chronic diastolic CHF B/L pleural effusion left BKA stump erythema and tenderness Decubitus ulcer stage 3 POA CAD/HTN/A.Fib/DMII/Hypothyroidism Diarrhea Plan: continue IV Vancomycin and Zosyn / consult ID, agree with IV antibx for 7 days , MRSA pos CT chest without contrast to evaluate the extent of any consolidation underneath the pleural effusion Influenza swab negative Sputum Cx pending/UCx and BCx NGTD procalcitonin 0.63 DuoNebs QID and q2 hrs PRN BIPAP prn O2 protocol, wean as tolerated- wears 2L at all times CT head was normal TSH was recently normal (12/2016) consult billing adjudicator continue IV Lasix 40 mg BID Worsening bilateral plural effusions noted on 01/20, pt for bronchoscopy with significant mucus plugging found in right bronchial tree Pt refusing thoracentesis at this time Monitor I&Os and daily weights Johnston placed - ECHO 12/30/16: * There is borderline concentric left ventricular hypertrophy. * Left ventricular systolic function is normal. * The left atrium is severely dilated. * The right atrium is moderately dilated. * There is mild mitral regurgitation. * Right ventricular systolic pressure is elevated at 30-40mmHg. continue sliding insulin scale coverage Continue Digoxin 125 mcg by mouth daily, Cardizem-CD 240 mg daily, and Xarelto 20 mg daily Continue Mag oxide 400 mg twice a day- mag level WNL Continue Levothyroxine 250 mcg by mouth daily Continue Advair 250/50 inhalation twice a day, Spiriva Continue Cymbalta 20 mg daily DVT prophylaxis: Xarelto Code Status: LEVEL V, DNR
--- NOTE | 2017-01-22 15:06 | Discharge Summary ---
Discharge Summary Date of Service January 22, 2017. Discharge Summary Admission Date: January 14, 2017 at 16:02 Discharge Date: January 21, 2017 Discharge Disposition: Home Principal Diagnosis: Acute hypoxic resp failure Immunizations: Have You Had Influenza Vaccine: Unknown Influenza Vaccine Date: Jun 23, 2013 History of Tetanus Vaccine?: Unknown History of Pneumococcal: Unknown Pneumococcal Date: Jun 23, 2011 History of Hepatitis B Vaccine: Unknown Consultations: Pulmonary Medication Reconciliation New Medications: Insulin Glargine (Lantus Solostar) 100 Unit/Ml Inj 10 UNIT SC DAILY, #1 BOX Continued Medications: Acetaminophen (Tylenol) 325 Mg Tab 650 MG PO Q8H PRN for mild pain or fever, TAB Ascorbic Acid (Ascorbic Acid) 500 Mg Tab 500 MG PO BID, TAB Digoxin (Digoxin) 0.25 Mg Tab 0.25 MG PO DAILY@16 for 30 Days, TAB Duloxetine HCl (Duloxetine HCl) 20 Mg Cap 20 MG PO QAM for 30 Days, #30 CAP Ferrous Sulfate (Ferrous Sulfate) 325 Mg Tab 325 MG PO BID for 30 Days, #60 TAB Fluticasone Prop/Salmeterol (Advair Diskus 250/50 60 Dose) 1 Ea Aerp 1 PUFF INH BID, INHALER Furosemide (Furosemide) 40 Mg Tab 40 MG PO QAM for 30 Days, #30 TAB Gabapentin (Gabapentin) 600 Mg Tab 300 MG PO HS for 30 Days, TAB Hydrocodone/Acetaminophen 5MG/325MG (Benoit 5MG/325MG) Tab 1 TAB PO Q6H PRN for mod Pain for 30 Days, #30 TAB PRN PAIN Insulin Aspart (Novolog Flexpen) 100 Units/Ml Inj 0 UNITS SC ACHS, #1 Ipratropium-Albuterol (Duoneb) 3 Ml Nebu 1 TREATMENT INH Q2H PRN for SOB/Wheezing, INHA Lactobacillus Acidophilus (Floranex) 1 Tab Tab 2 TAB PO TIDM, #90 TAB Levothyroxine Sodium (Levothyroxine Sodium) 50 Mcg Tab 50 MCG PO DAILY, TAB TAKE WITH 200MCG = 250MCG DAILY. Levothyroxine Sodium (Synthroid) 200 Mcg Tab 200 MCG PO DAILY TAKE WITH 50MCG TO TOTAL 250MCG Loperamide Hcl (Imodium) 2 Mg Cap 2 MG PO UD PRN for loose stools, CAP Lorazepam (Lorazepam) 0.5 Mg Tab 0.5 MG PO BID PRN for Anxiety for 30 Days, #60 TAB Magnesium Oxide (Mag-Ox) 400 Mg Tab 400 MG PO BID, TAB Nitroglycerin (Nitrostat) 0.4 Mg Tab 0.4 MG UT PRN, BTL NEEDED FOR CHEST PAIN : ONE TABLET, UNDER THE TONGUE, EVERY 5 MINUTES UP TO 3 DOSES. Omeprazole (Prilosec) 20 Mg Cap 20 MG PO DAILY, CAP Oxygen (Oxygen) Gas 3 LITERS NA CONTINOUS Polyethylene Glycol 3350 (Miralax) 1 Pow Pow 17 GM PO DAILY PRN for Constipation, #527 GM Potassium Chloride (Klor-Con M20) 20 Meq Tabcr 20 MEQ PO DAILY for 30 Days, #30 TAB 2 Refills Rivaroxaban (Xarelto) 20 Mg Tab 20 MG PO DAILY, TAB Spironolactone (Spironolactone) 25 Mg Tab 25 MG PO QAM for 30 Days, #30 TAB Tiotropium [place] (Spiriva Handihaler) 30 Puff/540 Mcg Aerp 1 CAP INH DAILY, INHALER Tramadol (Ultram) 50 Mg Tab 50 MG PO Q8H PRN for Pain for 30 Days, #30 TAB Discharge Exam Review of Systems: Constitutional: No chills, No fever Respiratory: No cough, No sputum Cardiovascular: No chest pain, No orthopnea Abdomen: No diarrhea, No nausea, No pain, No vomiting Musculoskeletal: No joint pain, No muscle pain Genitourinary - Female: No dysuria, No urinary frequency Physical Exam: General Appearance: WD/WN, no apparent distress Neck: supple, no adenopathy Respiratory/Chest: lungs clear, normal breath sounds Cardiovascular: no edema, no gallop Abdomen / GI: non tender, soft Neurologic/Psychiatric: alert, oriented x 3 Hospital Course 71 y/o female, with PMHx of Diabetic foot ulcer s/p left BKA, diastolic CHF, a.fib, hypothyroidism, COPD, anxiety/depression, and GERD, who presented to the ED from [facility] because of AMS. CXR at [facility] on 01/13 showed right lower lung pneumonia and pulmonary edema; patient was treated with Levaquin and Lasix. However, patient's status continued to worsen. currently has SOB and fever. Acute hypoxic respiratory failure Multilobar pneumonia (likely HCAP) Metabolic encephalopathy Acute on chronic diastolic CHF B/L pleural effusion left BKA stump erythema and tenderness Decubitus ulcer stage 3 POA CAD/HTN/A.Fib/DMII/Hypothyroidism Diarrhea Plan: Finished course of IV Vancomycin and Zosyn for 7 days, ID recs appreciated MRSA pos CT chest without contrast to evaluate the extent of any consolidation underneath the pleural effusion Influenza swab negative Sputum Cx pending/UCx and BCx NGTD procalcitonin 0.63 DuoNebs QID and q2 hrs PRN BIPAP prn O2 protocol, wean as tolerated- wears 2L at all times CT head was normal TSH was recently normal (12/2016) consult processing lead continue IV Lasix 40 mg BID Worsening bilateral plural effusions noted on 01/20, pt for bronchoscopy with significant mucus plugging found in right bronchial tree Pt refusing thoracentesis at this time Monitor I&Os and daily weights Johnston placed - ECHO 12/30/16: * There is borderline concentric left ventricular hypertrophy. * Left ventricular systolic function is normal. * The left atrium is severely dilated. * The right atrium is moderately dilated. * There is mild mitral regurgitation. * Right ventricular systolic pressure is elevated at 30-40mmHg. continue sliding insulin scale coverage Continue Digoxin 125 mcg by mouth daily, Cardizem-CD 240 mg daily, and Xarelto 20 mg daily Continue Mag oxide 400 mg twice a day- mag level WNL Continue Levothyroxine 250 mcg by mouth daily Continue Advair 250/50 inhalation twice a day, Spiriva Continue Cymbalta 20 mg daily DVT prophylaxis: Xarelto Code Status: LEVEL V, DNR Total Time Spent: Greater than 30 minutes This includes examination of the patient, discharge planning, medication reconciliation, and communication with other providers. Discharge Instructions Please refer to the electronic Patient Visit Report (Discharge Instructions) for additional information.
[2017-01-22] MEDS ORDERED: LORA-741 PO (15:45)
[2017-01-22] MEDS ORDERED: HYDR-3983 PO (15:45)
[2017-01-22] MEDS: DIGOXIN 0.25 MG TAB PO SCH (15:48)
[2017-01-22] MEDS ORDERED: INSULIN GLARGINE SOLOSTAR 100 UNITS/ML 3 ML PEN SC SCH (21:00)
[2017-06-13] MEDS ORDERED: ASCOCRY2 (14:49)
[2017-06-13] MEDS ORDERED: MULT-116 PO (14:49)
[2017-07-03] MEDS ORDERED: DULO-24 PO (15:06)
[2017-07-03] MEDS ORDERED: LACT1TAB4 PO (15:06)
[2017-07-03] MEDS ORDERED: SODIENE PR (15:06)
[2017-07-03] MEDS ORDERED: LORA-741 PO (15:06)
[2017-07-03] MEDS ORDERED: SALI0.6510 NAE (15:06)
[2017-07-03] MEDS ORDERED: RIVA1.5T PO (15:06)
[2017-07-03] MEDS ORDERED: MULT-190 PO (15:06)
[2017-07-03] MEDS ORDERED: NVLG SC ×2 (15:06)
[2017-07-03] MEDS ORDERED: RANI150C4 PO (15:06)
[2017-07-03] MEDS ORDERED: INSDGI SC (15:06)
[2017-07-03] MEDS ORDERED: COLE5GRA PO (15:06)
[2017-07-03] MEDS ORDERED: HYDR-3983 PO (15:06)
[2017-07-03] MEDS ORDERED: GABA-113 PO (15:06)
[2017-07-03] MEDS ORDERED: MOML PO (15:06)
[2017-07-03] MEDS ORDERED: FERR1TAB13 PO (15:06)
[2017-07-03] MEDS ORDERED: DIGO1TAB90 PEG (15:06)
[2017-07-18] MEDS ORDERED: MULTTAB63 PO (07:37)
[2017-07-18] MEDS ORDERED: TRAM-10 PO (07:37)
[2017-07-18] MEDS ORDERED: HMLI7525 SC (07:37)
== END 2017-01-22 15:59 | DRG 871 ==
LOC: ENRESERVDT → ENRESERVTM → EDBD 13:19 → C.EDA 13:20 → C.MED 16:02 → UNDOADMIN 16:02
PROVIDERS: ADMIT Hospitalist; ATTEND Hospitalist
PROC: 3E1F88X Irrigation of Respiratory Tract using Irrigating Substance, Via Natural or Artificial Opening Endoscopic, Diagnostic (ICD-10-PCS; principal; 2017-01-20)
DX: A41.9 Sepsis, unspecified organism (principal); G93.41 Metabolic encephalopathy; J96.00 Acute respiratory failure, unspecified whether with hypoxia or hypercapnia; I13.0 Hypertensive heart and chronic kidney disease with heart failure and stage 1 through stage 4 chronic kidney disease, or unspecified chronic kidney disease; L89.153 Pressure ulcer of sacral region, stage 3; Z66 Do not resuscitate; J18.9 Pneumonia, unspecified organism; I48.91 Unspecified atrial fibrillation; J44.9 Chronic obstructive pulmonary disease, unspecified; N18.3 Chronic kidney disease, stage 3 (moderate); E11.9 Type 2 diabetes mellitus without complications; E03.9 Hypothyroidism, unspecified; D64.9 Anemia, unspecified; F41.9 Anxiety disorder, unspecified; G47.33 Obstructive sleep apnea (adult) (pediatric); F32.9 Major depressive disorder, single episode, unspecified; Z87.01 Personal history of pneumonia (recurrent); Z79.4 Long term (current) use of insulin; Z90.49 Acquired absence of other specified parts of digestive tract; Z99.81 Dependence on supplemental oxygen

== ENCOUNTER → 2017-01-29 | Outpatient (CLI) | payer BC, OTHER ==
[~2017-01-29] MED LIST changes: +ASCO500T16 PO; +ASCOCRY2; -ATV5 PO; +COLE5GRA PO; +DIGO1TAB90 PEG; +DULO-24 PO; -EMOL-63 TOP; +FERR1TAB13 PO; +GABA-113 PO; +HMLI7525 SC; +HYDR-3983 PO; +IMD/2 PO; +INSDGI SC; +INSDGIPEN SC; +IPRASOL4 INH; +LACT1TAB4 PO; +LORA-741 PO; -LVQ500 PO; +MOML PO; -MRPSR15 PO; +MULT-116 PO; +MULT-190 PO; +MULTTAB63 PO; +NVLG SC; +RANI150C4 PO; +RIVA1.5T PO; +RIVA1TAB4 PO; +SALI0.6510 NAE; +SODIENE PR
[2017-01-29 12:23] LABS: HEMATOCRIT 26.1 % (37-47); MEAN CELL VOLUME 92.2 fL (80-100); MEAN CORPUSCULAR HEMOGLOBIN 28.6 pg (25-34); MEAN PLATELET VOLUME 9.4 fL (7.4-10.4); PLATELET COUNT 189 K/uL (130-400); RED BLOOD COUNT 2.83 M/uL (4.2-5.4); WHITE BLOOD COUNT 7.36 K/uL (4.8-10.8)
[2017-01-29 12:48] LABS: BLOOD UREA NITROGEN 24 mg/dl (7-18); BUN/CREATININE RATIO 24.6 (10-20); CARBON DIOXIDE 35 mmol/L (21-32); CHLORIDE 98 mmol/L (98-107); CREATININE 0.97 mg/dl (0.60-1.20); GLUCOSE 210 mg/dl (70-99); POTASSIUM 4.6 mmol/L (3.5-5.1); SODIUM 139 mmol/L (136-145)
[2017-01-29 12:56] LABS: CALCIUM 9.1 mg/dl (8.5-10.1)
== END | disposition home or self-care (01) ==
LOC: C.LABCC 12:37
PROVIDERS: ATTEND Internal Medicine
DX: D64.9 Anemia, unspecified (principal); E87.6 Hypokalemia

== ENCOUNTER → 2017-02-13 | Outpatient (CLI) | payer BC ==
[2017-02-13 08:22] LABS: BASO % 0.4 %; BASO ABS # 0.02 K/uL (0-0.2); HEMATOCRIT 27.1 % (37-47); IG% 0.4 %; LYMPH % 11.8 %; LYMPH ABS # 0.66 K/uL (1.2-3.4); MEAN CELL VOLUME 92.5 fL (80-100); MEAN CORPUSCULAR HEMOGLOBIN 29.7 pg (25-34); MEAN CORPUSCULAR HGB CONC 32.1 g/dl (32-36); MEAN PLATELET VOLUME 9.2 fL (7.4-10.4); MONO % 9.5 %; NEUT % 68.9 %; PLATELET COUNT 149 K/uL (130-400); RED BLOOD COUNT 2.93 M/uL (4.2-5.4); WHITE BLOOD COUNT 5.57 K/uL (4.8-10.8)
[2017-02-13 09:01] LABS: COMPLETE YES
== END ==
LOC: C.LABCC 07:53
PROVIDERS: ATTEND Internal Medicine
DX: D64.9 Anemia, unspecified (principal)

== ENCOUNTER → 2017-02-25 | Outpatient (CLI) | payer BC | LOC: C.LABCC 17:31 | PROVIDERS: ATTEND Internal Medicine | DX: A04.7 Enterocolitis due to Clostridium difficile (principal) ==

== ENCOUNTER → 2017-02-28 | Outpatient (CLI) | payer BC ==
[2017-02-28 12:42] LABS: URINE APPEARANCE CLEAR (CLEAR); URINE BILIRUBIN NEG (NEG); URINE COLOR YELLOW; URINE NITRITE NEG (NEG); UROBILINOGEN NEG (NEG)
[2017-02-28 13:00] LABS: MANUAL MICROSCOPIC REQUIRED? NO; REVIEW REQ? NO
== END ==
LOC: C.LABCC 12:23
PROVIDERS: ATTEND Internal Medicine
DX: R41.82 Altered mental status, unspecified (principal)

== ENCOUNTER → 2017-03-03 | Outpatient (CLI) | payer BC ==
[2017-03-03 10:58] LABS: MEAN CELL VOLUME 94.3 fL (80-100); MEAN CORPUSCULAR HEMOGLOBIN 30.9 pg (25-34); MEAN CORPUSCULAR HGB CONC 32.8 g/dl (32-36); PLATELET COUNT 155 K/uL (130-400); RED BLOOD COUNT 2.65 M/uL (4.2-5.4)
[2017-03-03 11:08] LABS: BLOOD UREA NITROGEN 37 mg/dl (7-18); BUN/CREATININE RATIO 33.9 (10-20); CALCIUM 9.3 mg/dl (8.5-10.1); CARBON DIOXIDE 32 mmol/L (21-32); CHLORIDE 104 mmol/L (98-107); GLUCOSE 146 mg/dl (70-99); POTASSIUM 5.3 mmol/L (3.5-5.1); SODIUM 140 mmol/L (136-145)
== END | disposition home or self-care (01) ==
LOC: C.LABCC 08:54
PROVIDERS: ATTEND Internal Medicine
DX: N18.3 Chronic kidney disease, stage 3 (moderate) (principal); D64.9 Anemia, unspecified

== ENCOUNTER → 2017-03-05 | Outpatient (CLI) | payer BC ==
[~2017-03-05] MED LIST changes: -COLE5GRA PO; -DIGO1TAB90 PEG; -DULO-24 PO; -FERR1TAB13 PO; -GABA-113 PO; -HMLI7525 SC; -INSDGI SC; -LACT1TAB4 PO; -LORA-741 PO; -MOML PO; +MULT-116; -MULT-116 PO; -MULT-190 PO; -MULTTAB63 PO; -NVLG SC; -RANI150C4 PO; -RIVA1.5T PO; -SALI0.6510 NAE; -SODIENE PR
[2017-03-05 10:41] LABS: BASO % 0.7 %; BASO ABS # 0.03 K/uL (0-0.2); EOS % 7.5 %; HEMATOCRIT 25.4 % (37-47); IG% 0.2 %; LYMPH % 13.6 %; MEAN CELL VOLUME 94.1 fL (80-100); MEAN CORPUSCULAR HEMOGLOBIN 30.4 pg (25-34); MEAN CORPUSCULAR HGB CONC 32.3 g/dl (32-36); MEAN PLATELET VOLUME 8.8 fL (7.4-10.4); MONO % 10.6 %; NEUT % 67.4 %; PLATELET COUNT 157 K/uL (130-400); WHITE BLOOD COUNT 4.42 K/uL (4.8-10.8)
[2017-03-05 11:10] LABS: FERRITIN 317.1 ng/ml (8.0-388.0)
[2017-03-05 11:48] LABS: COMPLETE YES
== END | disposition home or self-care (01) ==
LOC: C.LABCC 08:14
PROVIDERS: ATTEND Internal Medicine
DX: D64.9 Anemia, unspecified (principal)

== ENCOUNTER → 2017-03-19 | Outpatient (CLI) | payer BC ==
[2017-03-19 08:40] LABS: HEMATOCRIT 25.5 % (37-47); MEAN CELL VOLUME 93.4 fL (80-100); MEAN CORPUSCULAR HEMOGLOBIN 31.1 pg (25-34); MEAN CORPUSCULAR HGB CONC 33.3 g/dl (32-36); MEAN PLATELET VOLUME 8.7 fL (7.4-10.4); PLATELET COUNT 145 K/uL (130-400); RED BLOOD COUNT 2.73 M/uL (4.2-5.4); WHITE BLOOD COUNT 4.66 K/uL (4.8-10.8)
== END ==
LOC: C.LABCC 07:59
PROVIDERS: ATTEND Internal Medicine
DX: D64.9 Anemia, unspecified (principal)

== ENCOUNTER → 2017-03-28 | Outpatient (CLI) | payer BC ==
[2017-03-28 10:32] LABS: ESTIMATED AVERAGE GLUCOSE 114 mg/dl; HA1C FLAG Normal (Normal)
== END ==
LOC: C.LABCC 08:07
PROVIDERS: ATTEND Internal Medicine
DX: E11.40 Type 2 diabetes mellitus with diabetic neuropathy, unspecified (principal)

== ENCOUNTER → 2017-05-16 | Outpatient (CLI) | payer BC ==
[2017-05-16 10:57] LABS: URINE APPEARANCE TURBID (CLEAR); URINE BILIRUBIN NEG (NEG); URINE COLOR DK YELLOW; URINE NITRITE POS (NEG); UROBILINOGEN NEG (NEG)
[2017-05-16 11:01] LABS: MANUAL MICROSCOPIC REQUIRED? NO; REVIEW REQ? NO
== END ==
LOC: C.LABCC 10:16
PROVIDERS: ATTEND Internal Medicine
DX: R41.82 Altered mental status, unspecified (principal); R53.83 Other fatigue

== ENCOUNTER → 2017-05-19 | Outpatient (CLI) | payer BC ==
[2017-05-19 08:25] LABS: BASO % 0.7 %; BASO ABS # 0.03 K/uL (0-0.2); EOS % 11.4 %; HEMATOCRIT 25.6 % (37-47); IG% 0.2 %; LYMPH % 16.8 %; LYMPH ABS # 0.77 K/uL (1.2-3.4); MEAN CELL VOLUME 95.2 fL (80-100); MEAN CORPUSCULAR HEMOGLOBIN 30.1 pg (25-34); MEAN CORPUSCULAR HGB CONC 31.6 g/dl (32-36); MEAN PLATELET VOLUME 8.7 fL (7.4-10.4); MONO % 8.7 %; NEUT % 62.2 %; PLATELET COUNT 118 K/uL (130-400); RED BLOOD COUNT 2.69 M/uL (4.2-5.4); WHITE BLOOD COUNT 4.58 K/uL (4.8-10.8)
[2017-05-19 08:32] LABS: ALT/SGPT 11 U/L (12-78); AST/SGOT 13 U/L (15-37); BLOOD UREA NITROGEN 49 mg/dl (7-18); BUN/CREATININE RATIO 32.9 (10-20); CALCIUM 9.8 mg/dl (8.5-10.1); CARBON DIOXIDE 22 mmol/L (21-32); CHLORIDE 115 mmol/L (98-107); GLUCOSE 58 mg/dl (70-99); POTASSIUM 5.8 mmol/L (3.5-5.1); SODIUM 143 mmol/L (136-145)
[2017-05-19 08:35] LABS: ALB/GLOB RATIO 0.8 (0.9-2); ALKALINE PHOSPHATASE 76 U/L (45-117)
[2017-05-19 08:53] LABS: COMPLETE YES
== END ==
LOC: C.LABCC 08:03
PROVIDERS: ATTEND Internal Medicine
DX: R41.0 Disorientation, unspecified (principal); R41.82 Altered mental status, unspecified

== ENCOUNTER → 2017-05-22 | Outpatient (CLI) | payer BC ==
[2017-05-22 09:36] LABS: BLOOD UREA NITROGEN 43 mg/dl (7-18); BUN/CREATININE RATIO 25.1 (10-20); CALCIUM 9.6 mg/dl (8.5-10.1); CARBON DIOXIDE 23 mmol/L (21-32); CHLORIDE 112 mmol/L (98-107); GLUCOSE 153 mg/dl (70-99); POTASSIUM 5.8 mmol/L (3.5-5.1); SODIUM 140 mmol/L (136-145)
== END ==
LOC: C.LABCC 07:49
PROVIDERS: ATTEND Internal Medicine
DX: E87.5 Hyperkalemia (principal)

== ENCOUNTER → 2017-05-26 | Outpatient (CLI) | payer BC ==
[2017-05-26 11:08] LABS: BLOOD UREA NITROGEN 44 mg/dl (7-18); BUN/CREATININE RATIO 22.2 (10-20); CALCIUM 9.5 mg/dl (8.5-10.1); CARBON DIOXIDE 23 mmol/L (21-32); CHLORIDE 111 mmol/L (98-107); GLUCOSE 152 mg/dl (70-99); POTASSIUM 6.1 mmol/L (3.5-5.1); SODIUM 140 mmol/L (136-145)
== END ==
LOC: C.LABCC 09:49
PROVIDERS: ATTEND Internal Medicine
DX: N17.9 Acute kidney failure, unspecified (principal)

== ENCOUNTER → 2017-05-27 | Outpatient (CLI) | payer BC | LOC: C.LABCC 17:30 | PROVIDERS: ATTEND Internal Medicine | DX: R19.7 Diarrhea, unspecified (principal); R19.5 Other fecal abnormalities ==

== ENCOUNTER → 2017-05-28 | Outpatient (CLI) | payer BC ==
[2017-05-28 08:42] LABS: BLOOD UREA NITROGEN 43 mg/dl (7-18); BUN/CREATININE RATIO 23.7 (10-20); CALCIUM 9.9 mg/dl (8.5-10.1); CARBON DIOXIDE 25 mmol/L (21-32); CHLORIDE 112 mmol/L (98-107); GLUCOSE 75 mg/dl (70-99); SODIUM 141 mmol/L (136-145)
== END ==
LOC: C.LABCC 08:08
PROVIDERS: ATTEND Internal Medicine
DX: E87.5 Hyperkalemia (principal)

== ENCOUNTER → 2017-06-02 | Outpatient (CLI) | payer BC ==
[2017-06-02 08:12] LABS: BLOOD UREA NITROGEN 31 mg/dl (7-18); BUN/CREATININE RATIO 20.8 (10-20); CALCIUM 9.1 mg/dl (8.5-10.1); CARBON DIOXIDE 25 mmol/L (21-32); CHLORIDE 110 mmol/L (98-107); GLUCOSE 147 mg/dl (70-99); POTASSIUM 4.3 mmol/L (3.5-5.1); SODIUM 143 mmol/L (136-145)
== END ==
LOC: C.LABCC 07:45
PROVIDERS: ATTEND Internal Medicine
DX: N18.9 Chronic kidney disease, unspecified (principal)

== ENCOUNTER → 2017-06-10 | Outpatient (CLI) | payer BC ==
[2017-06-10 08:32] LABS: BLOOD UREA NITROGEN 46 mg/dl (7-18); BUN/CREATININE RATIO 27.1 (10-20); CALCIUM 9.3 mg/dl (8.5-10.1); CARBON DIOXIDE 25 mmol/L (21-32); CHLORIDE 110 mmol/L (98-107); GLUCOSE 172 mg/dl (70-99); POTASSIUM 4.2 mmol/L (3.5-5.1); SODIUM 143 mmol/L (136-145)
== END ==
LOC: C.LABCC 07:52
PROVIDERS: ATTEND Internal Medicine
DX: N17.9 Acute kidney failure, unspecified (principal); R60.9 Edema, unspecified

== ENCOUNTER → 2017-06-11 | Outpatient (CLI) | payer BC ==
[2017-06-11 09:53] LABS: HEMATOCRIT 23.7 % (37-47); MEAN CELL VOLUME 92.6 fL (80-100); MEAN CORPUSCULAR HEMOGLOBIN 29.7 pg (25-34); MEAN CORPUSCULAR HGB CONC 32.1 g/dl (32-36); MEAN PLATELET VOLUME 8.6 fL (7.4-10.4); PLATELET COUNT 161 K/uL (130-400); RED BLOOD COUNT 2.56 M/uL (4.2-5.4); WHITE BLOOD COUNT 6.29 K/uL (4.8-10.8)
[2017-06-11 10:19] LABS: BLOOD UREA NITROGEN 47 mg/dl (7-18); BUN/CREATININE RATIO 29.3 (10-20); CALCIUM 8.9 mg/dl (8.5-10.1); CARBON DIOXIDE 27 mmol/L (21-32); CHLORIDE 108 mmol/L (98-107); GLUCOSE 96 mg/dl (70-99); SODIUM 143 mmol/L (136-145)
== END | disposition home or self-care (01) ==
LOC: C.LABCC 09:00
PROVIDERS: ATTEND Internal Medicine
DX: R60.9 Edema, unspecified (principal); N17.9 Acute kidney failure, unspecified

== ENCOUNTER → 2017-06-13 | Outpatient (CLI) | payer BC, OTHER ==
[2017-06-13 08:11] LABS: HEMATOCRIT 21.6 % (37-47); MEAN CELL VOLUME 91.5 fL (80-100); MEAN CORPUSCULAR HEMOGLOBIN 30.1 pg (25-34); MEAN CORPUSCULAR HGB CONC 32.9 g/dl (32-36); MEAN PLATELET VOLUME 8.6 fL (7.4-10.4); PLATELET COUNT 145 K/uL (130-400); RED BLOOD COUNT 2.36 M/uL (4.2-5.4)
[2017-06-13 08:20] LABS: BLOOD UREA NITROGEN 47 mg/dl (7-18); BUN/CREATININE RATIO 27.4 (10-20); CARBON DIOXIDE 26 mmol/L (21-32); CHLORIDE 109 mmol/L (98-107); GLUCOSE 116 mg/dl (70-99); POTASSIUM 4.1 mmol/L (3.5-5.1); SODIUM 143 mmol/L (136-145)
== END ==
LOC: C.LABCC 07:43
PROVIDERS: ATTEND Internal Medicine
DX: N17.9 Acute kidney failure, unspecified (principal); E87.5 Hyperkalemia; D64.9 Anemia, unspecified

== ENCOUNTER → 2017-06-16 | Outpatient (CLI) | payer BC, OTHER ==
[~2017-06-16] MED LIST changes: -ASCOCRY2
[2017-06-16 10:01] LABS: BASO % 0.5 %; BASO ABS # 0.03 K/uL (0-0.2); EOS % 6.4 %; HEMATOCRIT 24.3 % (37-47); IG% 0.6 %; LYMPH % 11.6 %; LYMPH ABS # 0.72 K/uL (1.2-3.4); MEAN CELL VOLUME 92.4 fL (80-100); MEAN CORPUSCULAR HEMOGLOBIN 30.4 pg (25-34); MEAN CORPUSCULAR HGB CONC 32.9 g/dl (32-36); MEAN PLATELET VOLUME 8.5 fL (7.4-10.4); MONO % 7.2 %; NEUT % 73.7 %; PLATELET COUNT 143 K/uL (130-400); RED BLOOD COUNT 2.63 M/uL (4.2-5.4); WHITE BLOOD COUNT 6.22 K/uL (4.8-10.8)
[2017-06-16 10:33] LABS: ANISOCYTOSIS PRESENT; COMPLETE YES; TOXIC GRANULATION 1+
[2017-06-16 10:45] LABS: BLOOD UREA NITROGEN 47 mg/dl (7-18); BUN/CREATININE RATIO 31.6 (10-20); CARBON DIOXIDE 26 mmol/L (21-32); CHLORIDE 111 mmol/L (98-107); GLUCOSE 121 mg/dl (70-99); POTASSIUM 4.2 mmol/L (3.5-5.1); SODIUM 143 mmol/L (136-145)
== END ==
LOC: C.LABCC 09:15
PROVIDERS: ATTEND Internal Medicine
DX: D64.9 Anemia, unspecified (principal); I48.91 Unspecified atrial fibrillation; N28.9 Disorder of kidney and ureter, unspecified

== ENCOUNTER → 2017-06-18 | Outpatient (CLI) | payer BC, OTHER ==
[2017-06-18 08:43] LABS: HEMATOCRIT 24.6 % (37-47); MEAN CELL VOLUME 92.5 fL (80-100); MEAN CORPUSCULAR HEMOGLOBIN 29.3 pg (25-34); MEAN CORPUSCULAR HGB CONC 31.7 g/dl (32-36); MEAN PLATELET VOLUME 8.5 fL (7.4-10.4); PLATELET COUNT 139 K/uL (130-400); RED BLOOD COUNT 2.66 M/uL (4.2-5.4); WHITE BLOOD COUNT 6.07 K/uL (4.8-10.8)
== END ==
LOC: C.LABCC 08:24
PROVIDERS: ATTEND Internal Medicine
DX: D64.9 Anemia, unspecified (principal)

== ENCOUNTER → 2017-06-21 | Outpatient (CLI) | payer BC, OTHER | LOC: C.LABCC 11:54 | PROVIDERS: ATTEND Internal Medicine | DX: S31.109A Unspecified open wound of abdominal wall, unspecified quadrant without penetration into peritoneal cavity, initial encounter (principal); X58.XXXA Exposure to other specified factors, initial encounter ==

== ENCOUNTER → 2017-06-23 | Outpatient (CLI) | payer BC, OTHER ==
[2017-06-23 09:00] LABS: BASO % 0.3 %; BASO ABS # 0.02 K/uL (0-0.2); EOS % 5.4 %; HEMATOCRIT 27.1 % (37-47); IG% 0.3 %; LYMPH % 10.9 %; LYMPH ABS # 0.65 K/uL (1.2-3.4); MEAN CELL VOLUME 91.9 fL (80-100); MEAN CORPUSCULAR HEMOGLOBIN 30.2 pg (25-34); MEAN CORPUSCULAR HGB CONC 32.8 g/dl (32-36); MEAN PLATELET VOLUME 8.6 fL (7.4-10.4); MONO % 9.4 %; NEUT % 73.7 %; PLATELET COUNT 112 K/uL (130-400); RED BLOOD COUNT 2.95 M/uL (4.2-5.4); WHITE BLOOD COUNT 5.98 K/uL (4.8-10.8)
[2017-06-23 09:09] LABS: ALT/SGPT 10 U/L (12-78); BLOOD UREA NITROGEN 43 mg/dl (7-18); BUN/CREATININE RATIO 29.8 (10-20); CALCIUM 8.7 mg/dl (8.5-10.1); CARBON DIOXIDE 27 mmol/L (21-32); CHLORIDE 109 mmol/L (98-107); CREATININE 1.44 mg/dl (0.60-1.20); GLUCOSE 114 mg/dl (70-99); POTASSIUM 3.9 mmol/L (3.5-5.1); SODIUM 141 mmol/L (136-145)
[2017-06-23 09:11] LABS: ALB/GLOB RATIO 0.8 (0.9-2); ALKALINE PHOSPHATASE 89 U/L (45-117); AST/SGOT 9 U/L (15-37)
[2017-06-23 09:48] LABS: COMPLETE YES
== END ==
LOC: C.LABCC 08:46
PROVIDERS: ATTEND Internal Medicine
DX: D64.9 Anemia, unspecified (principal); N17.9 Acute kidney failure, unspecified

== ENCOUNTER → 2017-07-09 | Day surgery (SDC) | payer BC, OTHER ==
[2017-07-03 15:08] VITALS: Ht 165.1 cm; Wt 104.5 kg
[~2017-07-09] VITALS: Ht 165.1 cm; Wt 104.5 kg
[~2017-07-09] MED LIST changes: +COLE5GRA PO; -CYM20 PO; +DIGO1TAB90 PEG; +DULO-24 PO; +FENTANYL CITRATE INJ 50 MCG/1 ML 2 ML VIAL ONE; +FERR1TAB13 PO; -FRRS300 PO; +GABA-113 PO; +HMLI7525 SC; -HYDR-5688 PO; +INSDGI SC; -INSDGIPEN SC; +KETAMINE HCL INJ 50 MG/ML 10 ML VIAL ONE; +LACT1TAB4 PO; -LCTX PO; +LIDOCAINE HCL 2% 2 ML VIAL (20MG/ML) ONE; -LNX25 PO; +LORA-741 PO; -LSX40 PO; -MAGN400T6 PO; -MCRK20 PO; +MOML PO; -MULT-116; +MULT-116 PO; +MULT-190 PO; +MULTTAB63 PO; -NRN600 PO; +NVLG SC; -NVLGIPEN SC; -OMEP20CA9 PO; -OXGN; +PROPOFOL IV EMULSION 10 MG/ML 20 ML VIAL IV ONE; +RANI150C4 PO; +RIVA1.5T PO; -RIVA1TAB4 PO; +SALI0.6510 NAE; +SODIENE PR; -SPR25 PO
--- NOTE | 2017-07-09 08:50 | Endo History and Physical ---
History & Physical Date of Service: Jul 09, 2017. Chief Complaint: Epigastric abdominal pain Referring Physician: Jaimie History of Present Illness 72 yo CF who presents for EGD secondary to epigastric abdominal pain. Past Medical History Diabetes, Arthritis, Asthma, Anxiety, Reflux, High Cholesterol, Sleep Apnea, CHF , Hypertension, COPD, Thyroid Disease, Other Past Surgical History Hx Cardiac Surgery: No Hx Internal Defibrillator: No Hx Pacemaker: No Hx Abdominal Surgery: Yes (CANDE) Hx of Implantable Prosthesis: No Hx Cancer Surgery: No Hx Thoracic Surgery: Yes (TRACHEOSTOMY) Hx Orthopedic: Yes (LT BKA) Hx Urinary Tract Surgery: No Family History None Social History Smoking Status: Former Smoker Hx Substance Use: No Hx Alcohol Use: No Allergies Coded Allergies: Duloxetine (Verified Adverse Reaction, Mild, DIZZINESS, 06/20/17) Indigotindisulfonate (Verified Adverse Reaction, Unknown, "spaced out", ) Current Medications Reported Home Medications Medications Dose Route/Sig Max Daily Dose Days Date Category Dose Instructions Ativan (Lorazepam) 0.5 Mg Tab 0.5 Mg PO BID PRN 07/03/17 Reported [place] 7.5MG/325MG (Acetaminophen/Hydrocodone Bitart) Tab 1 Tab PO Q4H PRN 07/03/17 Reported PRN PAIN [place] Nasal [place] (Saline) 0.65 % Spr 2 Sprays MEGHA DAILY PRN 07/03/17 Reported Fleet Enema (Sodium Phosphate/Biphosphate) Miracle 1 Ea [place] UD PRN 07/03/17 Reported Milk Of Magnesia (Magnesium Hydroxide) 30 Ml Susp 30 Ml PO UD PRN 07/03/17 Reported Colestid (Colestipol Hcl) 5 Gm Gra 5 Gm PO QAM 07/03/17 Reported Ranitidine Hcl 150 Mg Cap 1 Cap PO BID 07/03/17 Reported Ocuvite Preservision (Multivitamins/Minerals) 1 Tab Tab 2 Cap PO QAM 07/03/17 Reported Novolog (Insulin Aspart) 100 Units/Ml Inj 1 Dose SC ACHS 07/03/17 Reported PER SLIDING SCALE Novolog (Insulin Aspart) 100 Units/Ml Inj 5 Units SC LUNCH AND SUPPER 07/03/17 Reported HOLD IF BLOOD SUGAR IS 200 OR LESS Lantus (Insulin Glargine) 100 Unit/Ml Inj 40 Units SC DAILY 07/03/17 Reported Neurontin (Gabapentin) 300 Mg Cap 300 Mg PO HS 07/03/17 Reported Floranex (Lactobacillus) 1 Tab Tab 2 Tabs PO TID 07/03/17 Reported Kp Ferrous Sulfate (Ferrous Sulfate) 325 Mg Tab 1 Tab PO BID 07/03/17 Reported Cymbalta (Duloxetine HCl) 20 Mg Cap 1 Cap PO QAM 07/03/17 Reported Digitek (Digoxin) 0.25 Mg Tab 1 Tab PEG 1630 07/03/17 Reported Xarelto (Rivaroxaban) 15 Mg Tab 15 Mg PO DAILY 07/03/17 Reported ON HOLD Theragran-M (Multiple Vitamins W/ Minerals) 1 Tab Tab 1 Tab PO QAM 06/13/17 Reported Ascorbic Acid 500 Mg Tab 500 Mg PO BID 01/14/17 Reported Imodium (Loperamide HCl) 2 Mg Cap 2 Mg PO UD PRN 01/14/17 Reported Duoneb (Ipratropium-Albuterol) 3 Ml Nebu 1 Treatment INH Q2H PRN 01/14/17 Reported Spiriva Handihaler (Tiotropium [place]) 30 Puff/540 Mcg Aerp 1 Cap INH QAM 10/15/16 Reported Synthroid (Levothyroxine Sodium) 200 Mcg Tab 200 Mcg PO DAILY 10/15/16 Reported TAKE WITH 50MCG TO TOTAL 250MCG Advair Diskus 250/50 60 Dose (Fluticasone Prop/Salmeterol) 1 Ea Aerp 1 Puff INH BID 10/15/16 Reported Levothyroxine Sodium 50 Mcg Tab 50 Mcg PO DAILY 09/20/16 Reported TAKE WITH 200MCG = 250MCG DAILY. Nitrostat (Nitroglycerin) 0.4 Mg Tab 0.4 Mg UT PRN 09/19/16 Reported NEEDED FOR CHEST PAIN : ONE TABLET, UNDER THE TONGUE, EVERY 5 MINUTES UP TO 3 DOSES. Miralax (Polyethylene Glycol 3350) 1 Pow Pow 17 Gm PO DAILY PRN 08/06/16 Reported Tylenol (Acetaminophen) 325 Mg Tab 650 Mg PO Q8H PRN 08/06/16 Reported Vital Signs Weight (Kilograms): 104.55 Height (Feet): 0 Height (Inches): 65 Physical Exam General Appearance: WD/WN, no apparent distress Respiratory/Chest: Auscultation: breath sounds normal Cardiovascular: Heart Auscultation: RRR Abdomen: Bowel Sounds: normal Inspection & Palpation: soft, non-distended, no tenderness, guarding & rebound Assessment and Plan Assessment: 72 yo CF who presents for EGD secondary to epigastric abdominal pain. Plan: Proceed with EGD.
--- NOTE | 2017-07-09 09:48 | Discharge Instructions ---
Endoscopy Patient Instructions Date / Procedure(s) Performed Jul 09, 2017. EGD Allergy Information Coded Allergies: Duloxetine (Verified Adverse Reaction, Mild, DIZZINESS, 06/20/17) Indigotindisulfonate (Verified Adverse Reaction, Unknown, "spaced out", ) Discharge Date / Findings Jul 09, 2017. Gastric antrum biopsies Hiatal hernia Medication Instructions Stopped Medication(s): Xarelto OK to resume all medications today as prescribed Reported Home Medications Medications Dose Route/Sig Max Daily Dose Days Date Category Dose Instructions Ativan (Lorazepam) 0.5 Mg Tab 0.5 Mg PO BID PRN 07/03/17 Reported [place] 7.5MG/325MG (Acetaminophen/Hydrocodone Bitart) Tab 1 Tab PO Q4H PRN 07/03/17 Reported PRN PAIN [place] Nasal [place] (Saline) 0.65 % Spr 2 Sprays MEGHA DAILY PRN 07/03/17 Reported Fleet Enema (Sodium Phosphate/Biphosphate) Miracle 1 Ea [place] UD PRN 07/03/17 Reported Milk Of Magnesia (Magnesium Hydroxide) 30 Ml Susp 30 Ml PO UD PRN 07/03/17 Reported Colestid (Colestipol Hcl) 5 Gm Gra 5 Gm PO QAM 07/03/17 Reported Ranitidine Hcl 150 Mg Cap 1 Cap PO BID 07/03/17 Reported Ocuvite Preservision (Multivitamins/Minerals) 1 Tab Tab 2 Cap PO QAM 07/03/17 Reported Novolog (Insulin Aspart) 100 Units/Ml Inj 1 Dose SC ACHS 07/03/17 Reported PER SLIDING SCALE Novolog (Insulin Aspart) 100 Units/Ml Inj 5 Units SC LUNCH AND SUPPER 07/03/17 Reported HOLD IF BLOOD SUGAR IS 200 OR LESS Lantus (Insulin Glargine) 100 Unit/Ml Inj 40 Units SC DAILY 07/03/17 Reported Neurontin (Gabapentin) 300 Mg Cap 300 Mg PO HS 07/03/17 Reported Floranex (Lactobacillus) 1 Tab Tab 2 Tabs PO TID 07/03/17 Reported Kp Ferrous Sulfate (Ferrous Sulfate) 325 Mg Tab 1 Tab PO BID 07/03/17 Reported Cymbalta (Duloxetine HCl) 20 Mg Cap 1 Cap PO QAM 07/03/17 Reported Digitek (Digoxin) 0.25 Mg Tab 1 Tab PEG 1630 07/03/17 Reported Xarelto (Rivaroxaban) 15 Mg Tab 15 Mg PO DAILY 07/03/17 Reported ON HOLD Theragran-M (Multiple Vitamins W/ Minerals) 1 Tab Tab 1 Tab PO QAM 06/13/17 Reported Ascorbic Acid 500 Mg Tab 500 Mg PO BID 01/14/17 Reported Imodium (Loperamide HCl) 2 Mg Cap 2 Mg PO UD PRN 01/14/17 Reported Duoneb (Ipratropium-Albuterol) 3 Ml Nebu 1 Treatment INH Q2H PRN 01/14/17 Reported Spiriva Handihaler (Tiotropium [place]) 30 Puff/540 Mcg Aerp 1 Cap INH QAM 10/15/16 Reported Synthroid (Levothyroxine Sodium) 200 Mcg Tab 200 Mcg PO DAILY 10/15/16 Reported TAKE WITH 50MCG TO TOTAL 250MCG Advair Diskus 250/50 60 Dose (Fluticasone Prop/Salmeterol) 1 Ea Aerp 1 Puff INH BID 10/15/16 Reported Levothyroxine Sodium 50 Mcg Tab 50 Mcg PO DAILY 09/20/16 Reported TAKE WITH 200MCG = 250MCG DAILY. Nitrostat (Nitroglycerin) 0.4 Mg Tab 0.4 Mg UT PRN 09/19/16 Reported NEEDED FOR CHEST PAIN : ONE TABLET, UNDER THE TONGUE, EVERY 5 MINUTES UP TO 3 DOSES. Miralax (Polyethylene Glycol 3350) 1 17 Gm PO DAILY PRN 08/06/16 Reported Tylenol (Acetaminophen) 325 Mg Tab 650 Mg PO Q8H PRN 08/06/16 Reported Provider Instructions Activity Restrictions - No exercising or heavy lifting for 24 hours. - Do not drink alcohol the day of the procedure. - Do not drive a car or operate machinery until the day after the procedure. - Do not make any important decisions or sign important papers in 24 hours after the procedure. Following Day: - Return to full activity which may include returning to work/school. Diet Start your diet with liquids and light foods (jello, soup, juice, toast). Then eat your usual diet if not nauseated. Treatment For Common After Affects For mild abdominal pain, bloating, or excessive gas: - Rest - Eat lightly - Lie on right side Follow-Up Information Follow-up with Oscar Eitenne as scheduled Anesthesia Information What You Should Know You have had a procedure that required some medicine to reduce anxiety and discomfort. This treatment is called moderate sedation. After receiving the treatment, you may be sleepy, but you will be able to breathe on your own. The effects of the treatment may last for several hours. Follow these instructions along with Activity/Diet recommendations noted above: * Do NOT do anything where dizziness or clumsiness would be dangerous. * Rest quietly at home today, then you can be up and about tomorrow. * Have a responsible person stay with you the rest of today. * You may have had an I.V. today. If so, you may take the dressing off later today. Recommendations Call your doctor if: * Trouble breathing * Continuous vomiting for more than 24 hours * Temperature above 101 degrees * Severe abdominal pain or bloating * Pain not relieved by pain medicine ordered * There is increased drainage or redness from any incision * A large amount of rectal bleeding greater than 2-3 tablespoons. (If you had a polyp/s removed or have hemorrhoids, a small amount of blood - from the rectum is to be expected.) * You have any unanswered questions or concerns. IN THE EVENT OF A SERIOUS EMERGENCY, GO TO THE NEAREST EMERGENCY ROOM Your discharge instructions were prepared by provider Jeffrey Velazquez. Patient Instructions Signature Page Valery Gloria Patient (or Guardian) Signature/Date: I have read and understand the instructions given to me by my caregivers. Caregiver/RN/Doctor Signature/Date: The above-named patient and/or guardian has received patient instructions on this date. + Original Patient Signature Page (only) stays with chart. Please make copy for patient.
--- NOTE | 2017-07-09 09:53 | GI REPORT ---
Procedure Date: 07/09/2017 9:31 AM Procedure: Upper GI endoscopy Indications: Epigastric abdominal pain Medicines: Monitored Anesthesia Care Complications: No immediate complications. Estimated Blood Loss: Estimated blood loss: none. Procedure: Pre-Anesthesia Assessment: - Prior to the procedure, a History and Physical was performed, and patient medications and allergies were reviewed. The patient's tolerance of previous anesthesia was also reviewed. The risks and benefits of the procedure and the sedation options and risks were discussed with the patient. All questions were answered, and informed consent was obtained. Prior Anticoagulants: The patient has taken Xarelto (rivaroxaban), last dose was 5 days prior to procedure. ASA Grade Assessment: IV - A patient with severe systemic disease that is a constant threat to life. After reviewing the risks and benefits, the patient was deemed in satisfactory condition to undergo the procedure. After obtaining informed consent, the endoscope was passed under direct vision. Throughout the procedure, the patient's blood pressure, pulse, and oxygen saturations were monitored continuously. The scope was introduced through the mouth, and advanced to the second part of duodenum. The upper GI endoscopy was accomplished without difficulty. The patient tolerated the procedure well. Findings: The esophagus was normal. A small hiatus hernia was present. Biopsies were taken with a cold forceps in the gastric antrum for Helicobacter pylori testing. The examined duodenum was normal. Impression: - Normal esophagus. - Small hiatus hernia. - Normal examined duodenum. - Biopsies were taken with a cold forceps for Helicobacter pylori testing. Recommendation: - Resume previous diet. - Continue present medications. - Await pathology results. - Return to primary care physician as previously scheduled. Jeffrey Velazquez, DO 07/09/2017 9:53:15 AM This report has been signed electronically. Note Initiated On: 07/09/2017 9:31 AM I attest to the content of the Intraoperative Record and orders documented therein, exceptions below
--- NOTE | 2017-07-09 10:02 | Anesthesiology Progress Note ---
Anesthesia Post Op Note Date & Time Jul 09, 2017 at 10:02 Vital Signs Vital Signs Past 12 Hours Date Time Temp Pulse Resp B/P (MAP) Pulse Ox O2 Delivery O2 Flow Rate FiO2 07/09/17 09:47 71 20 151/62 (91) 100 Nasal Cannula 3 07/09/17 08:58 37.1 70 20 143/58 (86) 100 Nasal Cannula 3 Notes Mental Status: alert / awake / arousable, participated in evaluation Pt Amnestic to Procedure: Yes Nausea / Vomiting: adequately controlled Pain: adequately controlled Airway Patency, RR, SpO2: stable & adequate BP & HR: stable & adequate Hydration State: stable & adequate Anesthetic Complications: no major complications apparent
[2017-07-09 10:20] VITALS: BP 151/62; PULSE 77; O2SAT 100
== END | disposition home or self-care (01) ==
LOC: C.GI 08:20
PROVIDERS: ATTEND Internal Medicine
DX: R10.13 Epigastric pain (principal); K29.50 Unspecified chronic gastritis without bleeding; E11.9 Type 2 diabetes mellitus without complications; M19.90 Unspecified osteoarthritis, unspecified site; J44.9 Chronic obstructive pulmonary disease, unspecified; F41.9 Anxiety disorder, unspecified; K21.9 Gastro-esophageal reflux disease without esophagitis; I73.9 Peripheral vascular disease, unspecified; E78.00 Pure hypercholesterolemia, unspecified; G47.30 Sleep apnea, unspecified; I25.10 Atherosclerotic heart disease of native coronary artery without angina pectoris; I48.91 Unspecified atrial fibrillation; Z86.718 Personal history of other venous thrombosis and embolism; E66.9 Obesity, unspecified; K44.9 Diaphragmatic hernia without obstruction or gangrene; K76.0 Fatty (change of) liver, not elsewhere classified; N18.3 Chronic kidney disease, stage 3 (moderate); I12.9 Hypertensive chronic kidney disease with stage 1 through stage 4 chronic kidney disease, or unspecified chronic kidney disease; Z86.19 Personal history of other infectious and parasitic diseases; Z86.14 Personal history of Methicillin resistant Staphylococcus aureus infection; Z86.711 Personal history of pulmonary embolism; Z87.891 Personal history of nicotine dependence; Z79.4 Long term (current) use of insulin; Z93.0 Tracheostomy status; Z96.653 Presence of artificial knee joint, bilateral; Z90.49 Acquired absence of other specified parts of digestive tract

== ENCOUNTER → 2017-07-16 | Outpatient (CLI) | payer BC, OTHER ==
[~2017-07-16] MED LIST changes: -FENTANYL CITRATE INJ 50 MCG/1 ML 2 ML VIAL ONE; -KETAMINE HCL INJ 50 MG/ML 10 ML VIAL ONE; -LIDOCAINE HCL 2% 2 ML VIAL (20MG/ML) ONE; -PROPOFOL IV EMULSION 10 MG/ML 20 ML VIAL IV ONE
[2017-07-16 08:58] LABS: HEMATOCRIT 22.5 % (37-47); MEAN CELL VOLUME 97.8 fL (80-100); MEAN CORPUSCULAR HEMOGLOBIN 30.9 pg (25-34); MEAN CORPUSCULAR HGB CONC 31.6 g/dl (32-36); MEAN PLATELET VOLUME 8.7 fL (7.4-10.4); PLATELET COUNT 127 K/uL (130-400); WHITE BLOOD COUNT 4.75 K/uL (4.8-10.8)
== END ==
LOC: C.LABCC 07:57
PROVIDERS: ATTEND Internal Medicine
DX: D64.9 Anemia, unspecified (principal)

== ENCOUNTER → 2017-07-21 | Outpatient (CLI) | payer BC, OTHER ==
[~2017-07-21] MED LIST changes: -MULT-116 PO; -NVLG SC
[2017-07-21 18:03] LABS: URINE APPEARANCE CLOUDY (CLEAR); URINE BILIRUBIN NEG (NEG); URINE COLOR YELLOW; URINE EPITHELIAL CELL AUTO 0-5 /lpf (0-5); URINE NITRITE POS (NEG); URINE PH 7.5 (4.5-7.5); URINE SPECIFIC GRAVITY 1.014 (1.000-1.030); UROBILINOGEN NEG (NEG)
[2017-07-21 18:08] LABS: MANUAL MICROSCOPIC REQUIRED? NO; REVIEW REQ? NO
== END ==
LOC: C.LABCC 17:38
PROVIDERS: ATTEND Internal Medicine
DX: R41.82 Altered mental status, unspecified (principal)

== ENCOUNTER → 2017-07-23 | Outpatient (CLI) | payer BC, OTHER ==
[2017-07-23 09:14] LABS: MEAN CELL VOLUME 95.6 fL (80-100); MEAN CORPUSCULAR HEMOGLOBIN 30.9 pg (25-34); MEAN CORPUSCULAR HGB CONC 32.3 g/dl (32-36); MEAN PLATELET VOLUME 8.8 fL (7.4-10.4); PLATELET COUNT 106 K/uL (130-400); RED BLOOD COUNT 2.72 M/uL (4.2-5.4); WHITE BLOOD COUNT 5.15 K/uL (4.8-10.8)
== END ==
LOC: C.LABCC 09:01
PROVIDERS: ATTEND Internal Medicine
DX: D64.9 Anemia, unspecified (principal)

== ENCOUNTER → 2017-07-30 | Outpatient (CLI) | payer BC, OTHER ==
[2017-07-30 09:16] LABS: HEMATOCRIT 23.7 % (37-47); MEAN CORPUSCULAR HEMOGLOBIN 31.3 pg (25-34); MEAN CORPUSCULAR HGB CONC 33.3 g/dl (32-36); MEAN PLATELET VOLUME 8.9 fL (7.4-10.4); PLATELET COUNT 124 K/uL (130-400); RED BLOOD COUNT 2.52 M/uL (4.2-5.4); WHITE BLOOD COUNT 4.15 K/uL (4.8-10.8)
== END ==
LOC: C.LABCC 08:37
PROVIDERS: ATTEND Internal Medicine
DX: D64.9 Anemia, unspecified (principal)

== ENCOUNTER → 2017-08-04 | Outpatient (CLI) | payer BC, OTHER ==
[2017-08-04 09:27] LABS: ESTIMATED AVERAGE GLUCOSE 77 mg/dl; HA1C FLAG Normal (Normal)
== END ==
LOC: C.LABCC 08:26
PROVIDERS: ATTEND Internal Medicine
DX: E11.9 Type 2 diabetes mellitus without complications (principal)

== ENCOUNTER → 2017-08-08 | Outpatient (CLI) | payer BC, OTHER ==
[2017-08-08 09:11] LABS: THYROID STIMULATING HORMONE 8.32 uIu/ml (0.300-4.500)
== END ==
LOC: C.LABCC 08:34
PROVIDERS: ATTEND Internal Medicine
DX: R63.5 Abnormal weight gain (principal)

== ENCOUNTER → 2017-08-11 | Outpatient (CLI) | payer BC, OTHER ==
[2017-08-11 09:29] LABS: HEMATOCRIT 24.4 % (37-47); MEAN CELL VOLUME 93.5 fL (80-100); MEAN CORPUSCULAR HEMOGLOBIN 31.8 pg (25-34); MEAN PLATELET VOLUME 8.8 fL (7.4-10.4); PLATELET COUNT 135 K/uL (130-400); RED BLOOD COUNT 2.61 M/uL (4.2-5.4); WHITE BLOOD COUNT 4.66 K/uL (4.8-10.8)
== END ==
LOC: C.LABCC 08:47
PROVIDERS: ATTEND Internal Medicine
DX: D64.9 Anemia, unspecified (principal)

== ENCOUNTER → 2017-08-19 | Outpatient (CLI) | payer BC, OTHER ==
[2017-08-19 08:56] LABS: HEMATOCRIT 22.2 % (37-47); MEAN CELL VOLUME 93.7 fL (80-100); MEAN CORPUSCULAR HEMOGLOBIN 31.6 pg (25-34); MEAN CORPUSCULAR HGB CONC 33.8 g/dl (32-36); PLATELET COUNT 120 K/uL (130-400); RED BLOOD COUNT 2.37 M/uL (4.2-5.4); WHITE BLOOD COUNT 5.07 K/uL (4.8-10.8)
[2017-08-19 09:04] LABS: ALT/SGPT 14 U/L (12-78); BLOOD UREA NITROGEN 42 mg/dl (7-18); BUN/CREATININE RATIO 23.8 (10-20); CALCIUM 8.9 mg/dl (8.5-10.1); CARBON DIOXIDE 31 mmol/L (21-32); CHLORIDE 99 mmol/L (98-107); CREATININE 1.77 mg/dl (0.60-1.20); GLUCOSE 256 mg/dl (70-99); POTASSIUM 3.6 mmol/L (3.5-5.1); SODIUM 138 mmol/L (136-145)
[2017-08-19 09:07] LABS: ALB/GLOB RATIO 0.9 (0.9-2); ALKALINE PHOSPHATASE 108 U/L (45-117); AST/SGOT 13 U/L (15-37)
[2017-08-20 12:30] LABS: AFP TUMOR MARKER SERUM 0.9 NG/ML (<6.1)
== END ==
LOC: C.LABCC 08:27
PROVIDERS: ATTEND Internal Medicine
DX: D64.9 Anemia, unspecified (principal)

== ENCOUNTER → 2017-08-20 | Outpatient (CLI) | payer BC, OTHER ==
[2017-08-20 08:39] LABS: HEMATOCRIT 22.5 % (37-47); MEAN CELL VOLUME 94.1 fL (80-100); MEAN CORPUSCULAR HEMOGLOBIN 32.6 pg (25-34); MEAN CORPUSCULAR HGB CONC 34.7 g/dl (32-36); PLATELET COUNT 120 K/uL (130-400); RED BLOOD COUNT 2.39 M/uL (4.2-5.4); WHITE BLOOD COUNT 5.71 K/uL (4.8-10.8)
== END ==
LOC: C.LABCC 08:05
PROVIDERS: ATTEND Internal Medicine
DX: D64.9 Anemia, unspecified (principal)

== ENCOUNTER → 2017-08-21 | Outpatient (CLI) | payer BC, OTHER ==
[~2017-08-21] MED LIST changes: +OPTIRAY 320 IV PRN
--- NOTE | 2017-08-21 13:37 | DIAGNOSTIC IMAGING REPORT ---
R ANGIOGRAPHY LOWER EXT COMBO CLINICAL HISTORY: 72 years-old Female presenting with severe right leg pain. TECHNIQUE: Multidetector CT angiography of the right leg was performed after the administration of intravenous contrast. 3-D volumetric and/or maximum intensity projection (MIP) images were subsequently reconstructed for review. Curved planar reformats were also instructed for review. IV contrast: 93 mL of Optiray 320. A dose lowering technique was used consistent with the principles of ALARA (as low as reasonably achievable). Stenosis measurements were based on NASCET-like criteria. COMPARISON: None. CT DOSE (mGy.cm): The estimated cumulative dose is 1713.27 mGy.cm. FINDINGS: Rehab Therapist topogram: Unremarkable. Vasculature: Atherosclerosis. Right common and external iliac arteries patent. Right common, superficial, and deep femoral arteries patent. Extensive streak artifact arising from quantum mottle limits image quality below the knee. Allowing for this, the popliteal and anterior tibial arteries are patent though with calcified atherosclerotic plaque. The degree of atherosclerotic plaque of the posterior tibial and peroneal arteries makes evaluation of their patency difficult. Allowing for this, the peroneal artery appears patent at the level of the ankle mortise as does the posterior tibial artery. Superficial veins appear patent. Deep veins have not been opacified. Remaining soft tissues: Diffuse subcutaneous edema throughout the right lower leg. This largely spares the deeper compartments, which demonstrated extensive fatty atrophy of the musculature. Limited evaluation of the pelvis demonstrates bladder wall thickening circumferentially. No bowel obstruction. Uterus grossly normal. Osseous structures: Degenerative changes of the lower lumbar spine. Tricompartmental degenerative changes at the knee joint. Heterogeneity of bone marrow in the tarsal bones likely indicating osteopenia and possible neuropathic changes. IMPRESSION: 1. Diffuse atherosclerosis with patent right lower extremity arteries to the level of the ankle mortise. The peroneal and posterior tibial arteries are somewhat difficult to evaluate for patency given the severe degree of calcified atherosclerotic plaque, though they appear patent at the level of the ankle mortise. 2. Diffuse subcutaneous edema. Correlate clinically to exclude cellulitis. 3. Circumference of bladder wall thickening could represent cystitis. Correlate with urinalysis. Electronically signed by: Kota Petty M.D. 08/21/2017 1:35 PM Dictated Date/Time: 08/21/2017 1:23 PM
== END | disposition home or self-care (01) ==
LOC: C.CTS 12:42
PROVIDERS: ATTEND Internal Medicine
DX: I73.9 Peripheral vascular disease, unspecified (principal)

== ENCOUNTER → 2017-08-25 | Outpatient (CLI) | payer BC, OTHER ==
[~2017-08-25] MED LIST changes: -OPTIRAY 320 IV PRN
[2017-08-25 08:30] LABS: BASO % 0.4 %; BASO ABS # 0.02 K/uL (0-0.2); EOS % 6.1 %; IG% 0.4 %; LYMPH % 12.1 %; LYMPH ABS # 0.56 K/uL (1.2-3.4); MEAN CORPUSCULAR HEMOGLOBIN 33.5 pg (25-34); MEAN CORPUSCULAR HGB CONC 35.2 g/dl (32-36); MONO % 9.5 %; NEUT % 71.5 %; PLATELET COUNT 139 K/uL (130-400); RED BLOOD COUNT 2.21 M/uL (4.2-5.4); WHITE BLOOD COUNT 4.61 K/uL (4.8-10.8)
[2017-08-25 09:10] LABS: COMPLETE YES
== END ==
LOC: C.LABCC 07:48
PROVIDERS: ATTEND Internal Medicine
DX: D64.9 Anemia, unspecified (principal)

== ENCOUNTER → 2017-09-02 | Outpatient (CLI) | payer BC, OTHER ==
[~2017-09-02] MED LIST changes: +BISACODYL RE; +CIPR1TAB11 PO; +FRS/40 PO; +INSU100I SC; +INSU70IN2 SC; +IPRA-64 INH; -IPRASOL4 INH; +NVLG SC; +POTA20TA13 PO; +PRT/20 PO
[2017-09-02 10:29] LABS: HEMATOCRIT 21.8 % (37-47); HEMOGLOBIN 7.5 g/dL (12.0-16.0); MEAN CORPUSCULAR HGB CONC 34.4 g/dl (32-36); MEAN PLATELET VOLUME 9.1 fL (7.4-10.4); PLATELET COUNT 140 K/uL (130-400); RED CELL DISTRIBUTION WIDTH CV 17.4 % (11.5-14.5); WHITE BLOOD COUNT 5.12 K/uL (4.8-10.8)
== END ==
LOC: C.LABCC 09:48
PROVIDERS: ATTEND Internal Medicine
DX: D64.9 Anemia, unspecified (principal)

== ENCOUNTER → 2017-09-03 | Outpatient (CLI) | payer BC, OTHER ==
[2017-09-03 10:08] LABS: BLOOD UREA NITROGEN 57 mg/dl (7-18); CARBON DIOXIDE 31 mmol/L (21-32); CREATININE 2.13 mg/dl (0.60-1.20); GLUCOSE 257 mg/dl (70-99); POTASSIUM 4.2 mmol/L (3.5-5.1); SODIUM 137 mmol/L (136-145)
== END ==
LOC: C.LABCC 09:15
PROVIDERS: ATTEND Internal Medicine
DX: N18.9 Chronic kidney disease, unspecified (principal)

== ENCOUNTER → 2017-09-04 | Outpatient (CLI) | payer BC, OTHER ==
[~2017-09-04] MED LIST changes: -BISACODYL RE; -CIPR1TAB11 PO; -FRS/40 PO; -INSU100I SC; -INSU70IN2 SC; -IPRA-64 INH; +IPRASOL4 INH; -NVLG SC; -POTA20TA13 PO; -PRT/20 PO
[2017-09-04 17:57] LABS: URINE APPEARANCE TURBID (CLEAR); URINE BILIRUBIN NEG (NEG); URINE COLOR YELLOW; URINE EPITHELIAL CELL AUTO >30 /lpf (0-5); URINE NITRITE NEG (NEG); URINE SPECIFIC GRAVITY 1.016 (1.000-1.030); UROBILINOGEN NEG (NEG)
[2017-09-04 18:11] LABS: MANUAL MICROSCOPIC REQUIRED? NO; REVIEW REQ? YES
== END ==
LOC: C.LABCC 17:14
PROVIDERS: ATTEND Internal Medicine
DX: R30.0 Dysuria (principal); R35.0 Frequency of micturition; R39.15 Urgency of urination

== ENCOUNTER → 2017-09-05 | Outpatient (CLI) | payer BC, OTHER ==
[~2017-09-05] MED LIST changes: +BISACODYL RE; +CIPR1TAB11 PO; +FRS/40 PO; +INSU100I SC; +INSU70IN2 SC; +IPRA-64 INH; -IPRASOL4 INH; +NVLG SC; +POTA20TA13 PO; +PRT/20 PO
== END ==
LOC: C.LABCC 09:01
PROVIDERS: ATTEND Internal Medicine
DX: E03.9 Hypothyroidism, unspecified (principal)

== ENCOUNTER → 2017-09-10 | Outpatient (CLI) | payer BC, OTHER ==
[2017-09-10 10:21] LABS: BLOOD UREA NITROGEN 64 mg/dl (7-18); CALCIUM 8.7 mg/dl (8.5-10.1); CARBON DIOXIDE 27 mmol/L (21-32); CREATININE 2.04 mg/dl (0.60-1.20); GLUCOSE 211 mg/dl (70-99); POTASSIUM 4.2 mmol/L (3.5-5.1); SODIUM 139 mmol/L (136-145)
== END ==
LOC: C.LABCC 09:26
PROVIDERS: ATTEND Internal Medicine
DX: N28.9 Disorder of kidney and ureter, unspecified (principal)

== ENCOUNTER → 2017-09-15 | Outpatient (CLI) | payer BC, OTHER ==
[~2017-09-15] MED LIST changes: -BISACODYL RE; -CIPR1TAB11 PO; -FRS/40 PO; -INSU100I SC; -INSU70IN2 SC; -IPRA-64 INH; +IPRASOL4 INH; -NVLG SC; -POTA20TA13 PO; -PRT/20 PO
[2017-09-15 08:27] LABS: BLOOD UREA NITROGEN 58 mg/dl (7-18); CALCIUM 8.5 mg/dl (8.5-10.1); CARBON DIOXIDE 26 mmol/L (21-32); CREATININE 1.81 mg/dl (0.60-1.20); GLUCOSE 300 mg/dl (70-99); POTASSIUM 4.3 mmol/L (3.5-5.1); SODIUM 142 mmol/L (136-145)
== END ==
LOC: C.LABCC 07:50
PROVIDERS: ATTEND Internal Medicine
DX: I12.9 Hypertensive chronic kidney disease with stage 1 through stage 4 chronic kidney disease, or unspecified chronic kidney disease (principal)

== ENCOUNTER → 2017-09-17 | Outpatient (CLI) | payer BC, OTHER ==
[~2017-09-17] MED LIST changes: +BISACODYL RE
[2017-09-17 09:18] LABS: HEMATOCRIT 20.4 % (37-47); HEMOGLOBIN 6.9 g/dL (12.0-16.0); MEAN CELL VOLUME 98.6 fL (80-100); MEAN CORPUSCULAR HEMOGLOBIN 33.3 pg (25-34); MEAN CORPUSCULAR HGB CONC 33.8 g/dl (32-36); MEAN PLATELET VOLUME 9.1 fL (7.4-10.4); PLATELET COUNT 118 K/uL (130-400); RED CELL DISTRIBUTION WIDTH SD 60.8 fL (36.4-46.3)
== END ==
LOC: C.LABCC 08:38
PROVIDERS: ATTEND Internal Medicine
DX: D64.9 Anemia, unspecified (principal)

== ENCOUNTER 2017-09-19 09:59 | Inpatient (IN) | payer BC, OTHER ==
[~2017-09-19 09:59] MED LIST changes: -IPRASOL4 INH; -LORA-741 PO
[2017-09-19 10:32] VITALS: BP 157/64; PULSE 53; TEMP 36.9; O2SAT 97
[2017-09-19] MEDS ORDERED: ACETAMINOPHEN 325 MG TAB PO PRN (10:45)
[2017-09-19] MEDS ORDERED: ONDANSETRON INJ 2 MG/ML 2 ML VIAL IV PRN (10:45)
[2017-09-19] MEDS ORDERED: GLUCOSE 40% GEL 15 GM TUBE PO PRN (11:15)
[2017-09-19] MEDS ORDERED: DEXTROSE 50% 50 ML SYR IV PRN (11:15)
[2017-09-19] MEDS ORDERED: GLUCAGON FOR INJ 1 MG VIAL SQ PRN (11:15)
[2017-09-19] MEDS ORDERED: GLUCOSE 10 TABS/TUBE PO PRN (11:15)
[2017-09-19 11:49] LABS: HEMATOCRIT 27.8 % (37-47); HEMOGLOBIN 9.3 g/dL (12.0-16.0)
[2017-09-19 12:19] LABS: BLOOD UREA NITROGEN 53 mg/dl (7-18); CALCIUM 9.2 mg/dl (8.5-10.1); CARBON DIOXIDE 30 mmol/L (21-32); CREATININE 1.63 mg/dl (0.60-1.20); GLUCOSE 248 mg/dl (70-99); POTASSIUM 4.6 mmol/L (3.5-5.1); SODIUM 142 mmol/L (136-145)
[2017-09-19] MEDS ORDERED: NVLG SC (13:33)
[2017-09-19] MEDS ORDERED: INSU100I SC (13:33)
[2017-09-19] MEDS: INSULIN ASPART 100 UNITS/ML 3 ML PEN SC SCH ×3 (13:59→20:51)
--- NOTE | 2017-09-19 14:53 | GASTROINTESTINAL CONSULTATION ---
DATE OF CONSULTATION: 09/19/2017 DATE OF CONSULTATION: 09/19/2017 ATTENDING PHYSICIAN: Dr. Chahal. CONSULTING PHYSICIAN: Dr. Velazquez. REASON FOR CONSULTATION: GI bleed, anemia. HISTORY OF PRESENT ILLNESS: Valery Gloria is a 72-year-old female who was seen at outpatient GI office today by Kimberley Bell, nurse practitioner. She noted that the patient had been having progressive anemia over the past few weeks with a reported H&H of 6.9 and 20.4 two days ago for which she received a transfusion at the PAU yesterday. Upon arrival today to the office she was noted to have lightheadedness and dizziness with transfers and she was short of breath and therefore decision was made to admit the patient directly. At the time that she was transferred she did have an H&H performed stat which was noted to be 9.3 and 27.8. She does have a significant past medical history and did undergo an upper endoscopy for anemia in July of last year which was noted to have findings of a small hiatal hernia and mild gastritis. She did not undergo colonoscopy at that time because it was felt that she was not a candidate from a pulmonary standpoint and though she did have a CT scan of the abdomen and pelvis in September [address] scan of her abdomen and pelvis at that time did show mild nonspecific rectal wall thickening which was felt to be due to under distention. She also had other findings consistent with cirrhosis and had some pulmonary nodules as well as endometrial thickening and lymphadenopathy in the abdomen in the aortoiliac and inguinal region which she was recommended to have a followup for though I do not see a repeat CT scan as of this time. At the time that I want to see the patient today, she just had a large brown bowel movement without evidence of melenic stool or bright red blood per rectum. The patient herself denies any hematemesis and states that she has not had any abdominal pain. She is agitated slightly that she was given her laxatives today as she asked to not be given them at [facility] though she was given them anyhow and she felt that this prompted her to have the large brown bowel movement aforementioned. She denies any other complaints at present. She states that her lightheadedness and dizziness have improved. She denies any fevers, chills, nausea, vomiting, chest pain, palpitations, shortness of breath, cough, dysuria, hematuria, skin rash or other complaints. PAST MEDICAL HISTORY: Extensive and includes diabetes type 2, coronary artery disease, JIMENEZ cirrhosis, hypertension, heart failure, atrial fibrillation, hypothyroidism, COPD, GERD, anxiety, depression, chronic lower extremity wounds, status post left BKA, history of acute respiratory failure, history of healthcare acquired pneumonia, history of metabolic encephalopathy, chronic respiratory failure. PAST SURGICAL HISTORY: Left BKA, cholecystectomy, history of EGD, history of tracheostomy. ALLERGIES: CYMBALTA. MEDICATIONS AT PRESENT: Vitamin C 500 mg p.o. b.i.d., Cymbalta 20 mg p.o. q.a.m., ferrous sulfate 325 mg p.o. b.i.d., Advair 1 puff via inhaler twice daily, gabapentin 300 mg p.o. at bedtime, hydrocodone/Tylenol 7.5/325 one tab p.o. q. 4 p.r.n. pain, sliding scale insulin, Glargine 40 units subQ daily, Synthroid 50 mcg p.o. daily, Synthroid 200 mcg p.o. daily, Zofran 4 mg IV q. 6 p.r.n. nausea, Spiriva 1 puff via inhaler p.o. q.a.m. SOCIAL HISTORY: She is a resident of [facility]. No tobacco, alcohol or illicit drug use. FAMILY HISTORY: Negative for GI malignancy or inflammatory bowel disease. REVIEW OF SYSTEMS: Negative x12 system review other than pertinent positives listed in the HPI. PHYSICAL EXAMINATION: VITAL SIGNS: Temp 36.9, pulse 53, respirations 16, blood pressure 157/64, pulse ox 97% on 3 liters via nasal cannula. GENERAL EXAMINATION: Chronic ill appearing in no acute distress. HEAD: Normocephalic, atraumatic. EYES: Pupils equally round. Extraocular muscles are intact. EARS, NOSE, THROAT: External evaluation of ears and nose are normal. Oropharynx is clear. NECK: Soft, supple. CHEST: Decreased breath sounds bilateral bases. CARDIOVASCULAR SYSTEM: Regular rate and rhythm. ABDOMEN: Soft, nontender, nondistended. Positive bowel sounds. EXTREMITIES: Left BKA. SKIN: Noted pallor. LABORATORY STUDIES AND RADIOGRAPHIC STUDIES: Reviewed in the HPI. IMPRESSION: A 72-year-old female presented to the outpatient office today with lightheadedness, dizziness and noted anemia who was directly admitted. PLAN: The patient currently had a large brown bowel movement without any evidence of overt GI blood loss. She had an upper endoscopy in July of this past year and therefore I do not believe an EGD is indicated at this time. A CT scan of the abdomen and pelvis would be recommended to follow up on abnormality seen in CT imaging done on September of 2016. It will also evaluate for a large abnormality in the colon such as a colon cancer, large polyp and may save the patient from undergoing an invasive test as she has multiple medical comorbidities and her risk for undergoing sedation and colonoscopy would be increased. The patient was agreeable with this plan. She states that she would like to avoid a colonoscopy if she could. I will follow her clinical course. If she has any signs of overt GI bleeding over the weekend recommendations will change. I will follow along and make further recommendations as needed. Once again, thanks for allowing me to participate in the care of this patient. If you have any further questions, please do not hesitate in contacting me.
[2017-09-19 16:23] VITALS: BP 173/64; PULSE 53; TEMP 37.1; O2SAT 100
[2017-09-19] MEDS: FERROUS SULFATE 325 MG TAB PO SCH (16:45)
[2017-09-19] MEDS ORDERED: INSULIN LISPRO 75% / 25% SC SCH (17:00)
[2017-09-19] MEDS: HYDROCODONE/ACETAMINOPHEN 7.5/325MG TAB PO PRN (18:16)
--- NOTE | 2017-09-19 20:27 | History and Physical ---
History & Physical Date & Time of Service: Sep 19, 2017 at 20:18 Chief Complaint: Symtomatic Anemia, Gi Bleed Primary Care Physician: Madhav Bennett History of Present Illness Source: patient, hospital records 72 yo female from [place] Madhav, direct admission from GI office for symptomatic anemia, heme positive stools. Has a history of atrial fibrillation on anticoagulation, chronic diastolic heart failure, chronic hypoxia. She had an EGD in July 2017 for work up of anemia that showed normal esophagus, hiatal hernia and normal stomach/duodenum. She was c/o increased fatigue, outpatient lab work showed a Hb of 6.9. She was transfused 2 units PRBC and today Hb up to 9.3. She was still have symptoms of fatigue, TURCIOS, weakness. She was said to test positive for blood in stool, although she has not noticed any melena or hematochezia. No vomiting, no history of ulcers. Otherwise, she has been medically stable. No chest pain, no dyspnea at rest, edema is stable. Eating reasonably well. Labs today show Hb of 9.3 and Cr is 1.4 which is baseline for her. 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 T2DM CAD HTN diastolic HF a.fib hypothyroidism COPD GERD anxiety/depression Medical Problems: (1) Ambulatory dysfunction Status: Chronic (2) CHF (congestive heart failure) Status: Chronic (3) Cholecystectomy Status: Resolved (4) Chronic congestive heart failure Status: Chronic (5) Chronic obstructive lung disease Status: Chronic (6) COPD exacerbation Status: Resolved (7) Diabetes mellitus Status: Chronic (8) History of anxiety Status: Chronic (9) History of hypokalemia Status: Chronic (10) Hypothyroidism Status: Chronic (11) Obstructive sleep apnea Status: Chronic (12) PNA (pneumonia) Status: Resolved Family History Heart disease Social History Smoking Status: Former Smoker Drug Use: none Marital Status: Housing status: lives alone, half-way Occupational Status: disabled Immunizations History of Influenza Vaccine: Unknown Influenza Vaccine Date: Jun 23, 2013 History of Tetanus Vaccine?: Unknown History of Pneumococcal: Unknown Pneumococcal Date: Jun 23, 2011 History of Hepatitis B Vaccine: Unknown Multi-Drug Resistant Organisms History of MDRO: No Type of MDRO: MRSA Allergies Coded Allergies: Duloxetine (Verified Adverse Reaction, Mild, DIZZINESS, 09/18/17) Indigotindisulfonate (Verified Adverse Reaction, Unknown, "spaced out", 07/26) Home Medications Scheduled Ascorbic Acid (Ascorbic Acid), 500 MG PO BID Colestipol Hcl (Colestid), 5 GM PO QAM Digoxin (Digitek), 1 TAB PEG 1630 Duloxetine HCl (Cymbalta), 1 CAP PO QAM Ferrous Sulfate (Kp Ferrous Sulfate), 1 TAB PO BID Fluticasone Prop/Salmeterol (Advair Diskus 250/50 60 Dose), 1 PUFF INH BID Gabapentin (Neurontin), 300 MG PO HS Insulin Aspart (Novolog), 5 UNITS SC BID Insulin Glargine (Lantus), 40 UNITS SC DAILY Insulin Lispro (Human) (Humalog), UNITS SC UD Lactobacillus (Floranex), 2 TABS PO TID Levothyroxine Sodium (Levothyroxine Sodium), 50 MCG PO DAILY Levothyroxine Sodium (Synthroid), 200 MCG PO DAILY Multiple Vitamins W/ Minerals (Therems M), 1 TAB PO DAILY Nitroglycerin (Nitrostat), 0.4 MG UT PRN Ocuvite Preservision (Ocuvite Preservision), 2 CAP PO QAM Ranitidine Hcl (Ranitidine Hcl), 1 CAP PO BID Rivaroxaban (Xarelto), 15 MG PO DAILY Tiotropium [place] (Spiriva Handihaler), 1 CAP INH QAM [Dulolax Suppository], 1 UNIT RE DIRECTED Scheduled PRN Acetaminophen (Tylenol), 650 MG PO Q8H PRN for mild pain or fever Hydrocodone/Acetaminophen 7.5MG/325MG ([place] 7.5MG/325MG), 1 TAB PO Q4H PRN for Pain Loperamide Hcl (Imodium), 2 MG PO UD PRN for loose stools Magnesium Hydroxide (Milk Of Magnesia), 30 ML PO UD PRN for Constipation Polyethylene Glycol 3350 (Miralax), 17 GM PO DAILY PRN for Constipation Saline ([place] Nasal [place]), 2 SPRAYS MEGHA DAILY PRN for PRN Sodium Phosphate/Biphosphate (Fleet Enema), 1 EA TN UD PRN for Constipation Tramadol (Ultram), 1 TAB PO TID PRN for Pain Review of Systems Constitutional: + weakness, + fatigue, No fever, No chills, No sweats, No weight loss, No problem reported Eyes: No worsening of vision, No eye pain, No redness, No discharge, No diplopia, No problem reported ENT: No hearing loss, No unusual epistaxis, No nasal symptoms, No sore throat, No tinnitus, No dental problems, No trouble swallowing, No problem reported Respiratory: + dyspnea on exertion, No cough, No sputum, No wheezing, No shortness of breath, No dyspnea at rest, No hemoptysis, No problem reported Cardiovascular: No chest pain, No orthopnea, No PND, No edema, No claudication , No palpitations, No problem reported Abdomen: No pain, No nausea, No vomiting, No diarrhea, No constipation, No GI bleeding, No problem reported Musculoskeletal: + joint pain, No muscle pain, No swelling, No calf pain, No problem reported Genitourinary - Female: No dysuria, No urinary frequency, No urinary urgency, No urinary incontinence, No urinary retention, No hematuria Neurologic: + weakness, No memory loss, No paralysis, No numbness/tingling, No vertigo, No balance problems, No problem reported Psychiatric: No depression symptoms, No anhedonism, No anxiety, No insomnia, No substance abuse, No problem reported Endocrine: No fatigue, No excessive thirst, No excessive urination, No problem reported Hematologic / Lymphatic: No abnormal bleeding/bruising, No clotting problems, No swollen lymph nodes, No night sweats, No problem reported Integumentary: No rash, No itch, No new/changing skin lesions, No color change , No bleeding, No problem reported Allergic / Immunologic: No environmental allergies, No seasonal allergies, No pet sensitivities, No food allergies, No hives, No frequent infections, No poor healing, No prolonged convalescence, No problem reported Physical Exam Vital Signs Date Time Temp Pulse Resp B/P (MAP) Pulse Ox O2 Delivery O2 Flow Rate FiO2 09/19/17 16:23 37.1 53 20 173/64 (100) 100 Nasal Cannula 3.0 09/19/17 16:15 Nasal Cannula 3.0 09/19/17 11:00 Nasal Cannula 3.0 09/19/17 10:32 36.9 53 16 157/64 (95) 97 Nasal Cannula 3.0 General Appearance: no apparent distress, + obese Head: normocephalic, atraumatic Eyes: normal inspection, EOMI, sclerae normal ENT: normal ENT inspection, hearing grossly normal, pharynx normal Neck: supple, no adenopathy, no JVD, trachea midline Respiratory/Chest: chest non-tender, lungs clear, normal breath sounds, no respiratory distress, no accessory muscle use Cardiovascular: no gallop, no JVD, no murmur, normal peripheral pulses, + irregularly irregular Abdomen/GI: normal bowel sounds, non tender, soft, no organomegaly Back: normal inspection, no CVA tenderness, no muscle spasm, normal range of motion Extremities/Musculoskelatal: normal inspection, no calf tenderness, normal capillary refill, normal range of motion, pelvis stable, + pedal edema (trace bilaterally) Neurologic/Psych: mold puller II-XII nml as tested, no motor/sensory deficits, alert, normal mood/affect, normal reflexes, oriented x 3 Skin: normal color, warm/dry, no rash Diagnostics Laboratory Results Results Past 24 Hours Test 09/19/17 11:17 09/19/17 11:29 09/19/17 17:02 Range/Units Hemoglobin 9.3 12.0-16.0 g/dL Hematocrit 27.8 37-47 % Sodium Level 142 136-145 mmol/L Potassium Level 4.6 3.5-5.1 mmol/L Chloride Level 109 98-107 mmol/L Carbon Dioxide Level 30 21-32 mmol/L Anion Gap 3.0 3-11 mmol/L Blood Urea Nitrogen 53 7-18 mg/dl Creatinine 1.63 0.60-1.20 mg/dl Estimated GFR () 35.9 Estimated GFR (Non- 30.9 BUN/Creatinine Ratio 32.3 10-20 Random Glucose 248 70-99 mg/dl Calcium Level 9.2 8.5-10.1 mg/dl Bedside Glucose 273 216 70-90 mg/dl Impression Assessment and Plan 72 yo female with symptomatic anemia, recent report of heme positive stool although no melena, here for possible endoscopy - Heme positive stool, worsening anemia, symptomatic anemia will follow H/H this weekend allow to eat if H/H drops further, will consider EGD and colonoscopy on Friday PPI, hold Xarelto for possible scopes - Atrial fibrillation: rates controlled, hold Xarelto for now - COPD: stable, no wheezing, continue Spiriva and Symbicort - Chronic hypoxia: stable on 3L NC - CKD: stable at 1.4 - DM: diabetic diet, Lantus, Novolog SS - Chronic diastolic heart failure: euvolemic, continue to monitor - DVT prophylaxis: on Xarelto prior to admission Level of Care Med/Surg Advanced Directives Existing Living Will: Yes Existing Power of Support Teacher: Yes Resuscitation Status FULL RESUSCITATION VTE Prophylaxis VTE Risk Assessment Done? Y/N: Yes Risk Level: High Given or contraindicated: Other Anticoagulation Additional Copies To [place], [place]
[2017-09-19] MEDS: FLUTICASONE/SALMETEROL 250/50 (ADVAIR) 14 PUFF/1 INHALER INH SCH (20:49)
[2017-09-19] MEDS: GABAPENTIN 300 MG CAP PO SCH (20:50)
[2017-09-19] MEDS: ASCORBIC ACID 500 MG TAB PO SCH (20:51)
[2017-09-20 00:07] VITALS: BP 147/62; PULSE 54; TEMP 36.5; O2SAT 98
[2017-09-20] MEDS: LEVOTHYROXINE 50 MCG TAB PO SCH (06:32)
[2017-09-20] MEDS: LEVOTHYROXINE 200 MCG TAB PO SCH (06:33)
[2017-09-20 07:30] LABS: BASO % 0.5 %; BASO ABS # 0.02 K/uL (0-0.2); EOS % 6.5 %; EOS ABS # 0.25 K/uL (0-0.5); HEMATOCRIT 25.6 % (37-47); HEMOGLOBIN 8.6 g/dL (12.0-16.0); IG# 0.01 K/uL (0.00-0.02); LYMPH ABS # 0.54 K/uL (1.2-3.4); MEAN CELL VOLUME 94.5 fL (80-100); MEAN CORPUSCULAR HEMOGLOBIN 31.7 pg (25-34); MEAN CORPUSCULAR HGB CONC 33.6 g/dl (32-36); MEAN PLATELET VOLUME 8.7 fL (7.4-10.4); MONO % 9.4 %; MONO ABS # 0.36 K/uL (0.11-0.59); NEUT % 69.3 %; NEUT ABS # 2.67 K/uL (1.4-6.5); PLATELET COUNT 114 K/uL (130-400); RED CELL DISTRIBUTION WIDTH CV 16.4 % (11.5-14.5); RED CELL DISTRIBUTION WIDTH SD 56.7 fL (36.4-46.3); WHITE BLOOD COUNT 3.85 K/uL (4.8-10.8)
[2017-09-20 07:43] VITALS: BP 162/68; PULSE 54; TEMP 36.7; O2SAT 99
[2017-09-20] MEDS ORDERED: DULOXETINE HCL 20 MG CAP PO SCH (08:00)
[2017-09-20 08:05] LABS: BLOOD UREA NITROGEN 47 mg/dl (7-18); CALCIUM 8.9 mg/dl (8.5-10.1); CARBON DIOXIDE 29 mmol/L (21-32); CREATININE 1.54 mg/dl (0.60-1.20); GLUCOSE 181 mg/dl (70-99); POTASSIUM 4.4 mmol/L (3.5-5.1); SODIUM 143 mmol/L (136-145)
[2017-09-20] MEDS: FLUTICASONE/SALMETEROL 250/50 (ADVAIR) 14 PUFF/1 INHALER INH SCH ×2 (09:58→20:26)
[2017-09-20] MEDS: TIOTROPIUM BROMIDE 5 PUFF/90 MCG INH INH SCH (09:58)
[2017-09-20] MEDS: FERROUS SULFATE 325 MG TAB PO SCH ×2 (09:59→17:58)
[2017-09-20] MEDS: ASCORBIC ACID 500 MG TAB PO SCH ×2 (09:59→20:26)
[2017-09-20] MEDS ORDERED: OPTIRAY 320 IV PRN (10:00)
--- NOTE | 2017-09-20 10:35 | DIAGNOSTIC IMAGING REPORT ---
ABD/PELVIS IV AND ORAL CONT CT DOSE: 1157.07 mGy.cm HISTORY: Pain Anemia, History of rectal thickening TECHNIQUE: Multiaxial CT images of the abdomen and pelvis were performed following the use of intravenous and oral contrast. A dose lowering technique was utilized adhering to the principles of ALARA. COMPARISON STUDY: 09/19/2016 FINDINGS: Interval development of bilateral pleural effusions. Bilateral partial lower lobe atelectatic change. The nodular density right lung base appears described is now well seen currently possibly due to technical differences in field scanning. There is a component of mild body wall anasarca. Early cirrhotic changes of liver is again noted. This appears to be similar. Moderate splenomegaly with several upper abdominal varices unchanged in the prior exam. Very small hiatal hernia. The bowel pattern throughout is considered nonobstructive. Uterus is anteflexed. Bladder is midline. Mild rectal wall thickening similar to the prior exam. Several small reactive nodes in the inguinal region. Several small subcentimeter nodes in the soft tissue pelvic region unchanged from the prior study. IMPRESSION: 1. Hepatic cirrhosis with findings of portal hypertension. 2. Stable moderate splenomegaly with patent upper abdominal varices. 3. Anasarca slightly progressive from the prior exam. 4. Small bilateral pleural effusions with bibasilar partial lower lobe atelectatic change. 5. Nonobstructive bowel pattern. 6. Moderate rectal wall thickening similar to the prior study. The above report was generated using voice recognition software. It may contain grammatical, syntax or spelling errors. Electronically signed by: Castillo Thompson M.D. 09/20/2017 10:34 AM Dictated Date/Time: 09/20/2017 10:28 AM
[2017-09-20] MEDS: INSULIN GLARGINE SOLOSTAR 100 UNITS/ML 3 ML PEN SC SCH (10:45)
[2017-09-20] MEDS: INSULIN ASPART 100 UNITS/ML 3 ML PEN SC SCH ×4 (10:45→20:31)
--- NOTE | 2017-09-20 13:41 | GASTROENTEROLOGY PROGRESS NOTE ---
DATE: 09/20/2017 DATE: 09/20/2017 HISTORY OF PRESENT ILLNESS: I had the pleasure of seeing Valery Gloria at her bedside this morning. She did complain of some cough and some mild sputum production. She denied any bright red blood per rectum. She has not had any further bowel movements since her brown BM from yesterday. She denies any lightheadedness or dizziness. She further denies any abdominal pain. She did undergo a CT scan of her abdomen and pelvis yesterday which showed findings consistent with cirrhosis, splenomegaly, upper abdominal varices, slightly progressive anasarca, small bilateral pleural effusions with bibasilar lower lobe atelectatic changes and moderate rectal wall thickening, similar to her previous study. She denies any further complaints and states she is eating well. PHYSICAL EXAMINATION: VITAL SIGNS: Temperature 36.7, pulse 54, respirations 20, blood pressure 162/68, pulse ox 99% on 3 liters via nasal cannula. GENERAL EXAMINATION: She is awake, cooperative, in no acute distress. She is chronic ill appearing. HEAD: Normocephalic, atraumatic. CHEST: Decreased breath sounds bilateral bases. CARDIOVASCULAR SYSTEM: Regular rate and rhythm. ABDOMEN: Soft, nontender, nondistended. Positive bowel sounds. EXTREMITIES: No clubbing. She does have a left BKA. IMPRESSION: A 72-year-old female with anemia and no overt GI bleeding. PLAN: I would hold off on performing any invasive testing as the patient has multiple medical comorbidities which preclude her from undergoing EGD or colonoscopy at this time as I believe that she is a significant risk to undergo sedation for these procedures. CT scan of the abdomen and pelvis was reviewed. She does have evidence of cirrhosis which can be managed chronically as an outpatient and rectal wall thickening, though no overt signs of bleeding and no evidence of a colon cancer; therefore I would hold off on doing an invasive test such as a colonoscopy at present. The patient is in agreement with this plan. I will follow her clinical course and make further recommendations as needed. Once again, thanks for allowing me to participate in the care of this patient. If you have any further questions, please do not hesitate in contacting me.
[2017-09-20 15:13] VITALS: BP 166/67; PULSE 54; TEMP 36.8; O2SAT 100
[2017-09-20] MEDS: HYDROCODONE/ACETAMINOPHEN 7.5/325MG TAB PO PRN ×2 (17:59→22:58)
[2017-09-20] MEDS ORDERED: MICONAZOLE NITRATE POWDER 43 GM EXT PRN (18:30)
[2017-09-20] MEDS: GABAPENTIN 300 MG CAP PO SCH (20:27)
--- NOTE | 2017-09-20 21:49 | Progress Note ---
Subjective Date of Service: Sep 20, 2017. Subjective Pt evaluation today including: conversation w/ patient, physical exam, lab review, conversation w/ [facility] consultant, review of inpatient medication list Pain: no pain PO Intake: adequate Voiding: no voiding problems patient doing well, no new issues, no melena, eating well, breathing well Hb stable, Cr stable sugars occasionally elevated Problem List Medical Problems: (1) Atrial fibrillation Status: Acute (2) Bifascicular block Status: Acute (3) Cellulitis of both lower extremities Status: Acute (4) Cellulitis of foot, left Status: Acute (5) Cellulitis of left lower leg Status: Acute (6) CHF (congestive heart failure) Status: Acute (7) CHF exacerbation Status: Acute (8) Constipation Status: Acute (9) Diabetic foot ulcer Status: Acute (10) Electrolyte abnormality Status: Acute (11) Fever Status: Acute (12) Hyperkalemia Status: Acute (13) Hypokalemia Status: Acute (14) Leukocytosis Status: Acute (15) Pleural effusion, right Status: Acute (16) Sepsis Status: Acute (17) Sepsis Status: Acute (18) UTI (urinary tract infection) Status: Acute (19) UTI (urinary tract infection) Status: Acute Review of Systems Constitutional: + weakness All Other Systems: Reviewed and Negative Medications Current Inpatient Medications Medications (Trade) Dose Ordered Sig/Hans Route Start Time Stop Time Status Last Admin Dose Admin Acetaminophen (Tylenol Tab) 650 mg Q4H PRN PO 09/19/17 10:45 10/19/17 10:44 Ondansetron HCl (Zofran Inj) 4 mg Q6H PRN IV 09/19/17 10:45 10/19/17 10:44 Ascorbic Acid (Vitamin C Tab) 500 mg BID PO 09/19/17 20:00 10/19/17 19:59 09/20/17 20:26 500 MG Salmeterol Xinafoate/ Fluticasone (Advair Diskus 250/50 Inh) 1 puff BID INH 09/19/17 20:00 10/19/17 19:59 09/20/17 20:26 1 PUFF Gabapentin (Neurontin Cap) 300 mg HS PO 09/19/17 21:00 10/19/17 20:59 09/20/17 20:27 300 MG Acetaminophen/ Hydrocodone Bitart ([place] 7.5/325 Tab) 1 tab Q4H PRN PO 09/19/17 11:00 10/03/17 10:59 09/20/17 17:59 1 TAB Insulin Glargine (Lantus Solostar Pen) 40 units DAILY SC 09/20/17 08:00 10/20/17 07:59 09/20/17 10:45 40 UNITS Levothyroxine Sodium (Synthroid Tab) 50 mcg DAILYBB PO 09/20/17 06:30 10/20/17 06:29 09/20/17 06:32 50 MCG Levothyroxine Sodium (Synthroid Tab) 200 mcg DAILYBB PO 09/20/17 06:30 10/20/17 06:29 09/20/17 06:33 200 MCG Tiotropium Linn (Spiriva Handihaler Inhaler) 1 puff QAM INH 09/20/17 08:00 10/20/17 07:59 09/20/17 09:58 1 PUFF Ferrous Sulfate (Feosol Tab) 325 mg BIDM PO 09/19/17 17:00 10/19/17 16:59 09/20/17 17:58 325 MG Glucose (Glucose 40% Gel) 15-30 GRAMS 15 GRAMS... UD PRN PO 09/19/17 11:15 10/19/17 11:14 Glucose (Glucose Chew Tab) 4-8 Tablets 4 Tabl... UD PRN PO 09/19/17 11:15 10/19/17 11:14 Dextrose (Dextrose 50% 50ML Syringe) 25-50ML OF 50% DW IV FOR... UD PRN IV 09/19/17 11:15 10/19/17 11:14 Glucagon (Glucagon Inj) 1 mg UD PRN SQ 09/19/17 11:15 10/19/17 11:14 Insulin Aspart (novoLOG ASPART) SLIDING SCALE ACHS SC 09/19/17 16:30 10/19/17 16:29 09/20/17 20:31 2 UNITS Ioversol (Optiray 320) 100 ml UD PRN IV 09/20/17 10:00 09/24/17 09:59 Miconazole Nitrate (Desenex Powder) 1 appln PRN PRN EXT 09/20/17 18:30 10/20/17 18:29 Objective Vital Signs Date Time Temp Pulse Resp B/P (MAP) Pulse Ox O2 Delivery O2 Flow Rate FiO2 09/20/17 16:20 Nasal Cannula 3.0 09/20/17 15:13 36.8 54 18 166/67 (100) 100 Nasal Cannula 3.0 09/20/17 09:00 Nasal Cannula 3.0 09/20/17 07:43 36.7 54 20 162/68 (99) 99 Nasal Cannula 3.0 09/20/17 00:07 36.5 54 18 147/62 (90) 98 Nasal Cannula 3.0 09/20/17 00:00 Nasal Cannula 3.0 Physical Exam General Appearance: no apparent distress, + obese Eyes: normal inspection, EOMI ENT: normal ENT inspection, hearing grossly normal, pharynx normal Neck: supple, no adenopathy, no JVD, trachea midline Respiratory/Chest: chest non-tender, lungs clear, normal breath sounds, no respiratory distress, no accessory muscle use Cardiovascular: regular rate, rhythm, no edema, no gallop, no JVD, no murmur Abdomen: normal bowel sounds, non tender, soft, no organomegaly Extremities: normal range of motion, non-tender, normal inspection, no pedal edema, no calf tenderness Neurologic/Psychiatric: hand stripper II-XII nml as tested, no motor/sensory deficits, alert, normal mood/affect, oriented x 3 Skin: warm/dry, no rash Laboratory Results Last 24 Hours Test 09/20/17 06:56 09/20/17 07:55 09/20/17 12:15 09/20/17 16:38 White Blood Count 3.85 K/uL Red Blood Count 2.71 M/uL Hemoglobin 8.6 g/dL Hematocrit 25.6 % Mean Corpuscular Volume 94.5 fL Mean Corpuscular Hemoglobin 31.7 pg Mean Corpuscular Hemoglobin Concent 33.6 g/dl Platelet Count 114 K/uL Mean Platelet Volume 8.7 fL Neutrophils (%) (Auto) 69.3 % Lymphocytes (%) (Auto) 14.0 % Monocytes (%) (Auto) 9.4 % Eosinophils (%) (Auto) 6.5 % Basophils (%) (Auto) 0.5 % Neutrophils # (Auto) 2.67 K/uL Lymphocytes # (Auto) 0.54 K/uL Monocytes # (Auto) 0.36 K/uL Eosinophils # (Auto) 0.25 K/uL Basophils # (Auto) 0.02 K/uL RDW Standard Deviation 56.7 fL RDW Coefficient of Variation 16.4 % Immature Granulocyte % (Auto) 0.3 % Immature Granulocyte # (Auto) 0.01 K/uL Anisocytosis PRESENT Sodium Level 143 mmol/L Potassium Level 4.4 mmol/L Chloride Level 108 mmol/L Carbon Dioxide Level 29 mmol/L Anion Gap 6.0 mmol/L Blood Urea Nitrogen 47 mg/dl Creatinine 1.54 mg/dl Estimated GFR () 38.4 Estimated GFR (Non- 33.1 BUN/Creatinine Ratio 30.2 Random Glucose 181 mg/dl Calcium Level 8.9 mg/dl Bedside Glucose 202 mg/dl 342 mg/dl 240 mg/dl Test 09/20/17 20:26 Bedside Glucose 187 mg/dl Assessment and Plan 72 yo female with symptomatic anemia, recent report of heme positive stool although no melena, here for possible endoscopy - Heme positive stool, worsening anemia, symptomatic anemia will follow H/H this weekend, stable today at >[address] Velazquez would not recommend EGD or colonoscopy due to comorbidities PPI, hold Xarelto for possible scopes - Atrial fibrillation: rates controlled, hold Xarelto for now - COPD: stable, no wheezing, continue Spiriva and Symbicort - Chronic hypoxia: stable on 3L NC - CKD: stable at 1.5 - DM: diabetic diet, Lantus, Novolog SS - Chronic diastolic heart failure: euvolemic, continue to monitor - DVT prophylaxis: on Xarelto prior to admission
[2017-09-20 22:30] VITALS: BP 154/67; PULSE 53; TEMP 37.1; O2SAT 100
[2017-09-20 23:53] LABS: HEMATOCRIT 25.2 % (37-47); HEMOGLOBIN 8.6 g/dL (12.0-16.0)
[2017-09-21 00:50] VITALS: BP 155/55; PULSE 51; TEMP 36.7; O2SAT 100
[2017-09-21] MEDS: LEVOTHYROXINE 50 MCG TAB PO SCH (06:11)
[2017-09-21] MEDS: LEVOTHYROXINE 200 MCG TAB PO SCH (06:11)
[2017-09-21 07:32] VITALS: BP 180/72; PULSE 53; TEMP 36.8; O2SAT 99
[2017-09-21 08:45] LABS: HEMATOCRIT 26.8 % (37-47); HEMOGLOBIN 8.9 g/dL (12.0-16.0)
[2017-09-21] MEDS: TIOTROPIUM BROMIDE 5 PUFF/90 MCG INH INH SCH (08:52)
[2017-09-21] MEDS: FERROUS SULFATE 325 MG TAB PO SCH (08:52)
[2017-09-21] MEDS: ASCORBIC ACID 500 MG TAB PO SCH (08:52)
[2017-09-21] MEDS: FLUTICASONE/SALMETEROL 250/50 (ADVAIR) 14 PUFF/1 INHALER INH SCH (08:52)
[2017-09-21] MEDS: INSULIN GLARGINE SOLOSTAR 100 UNITS/ML 3 ML PEN SC SCH (08:56)
[2017-09-21] MEDS: INSULIN ASPART 100 UNITS/ML 3 ML PEN SC SCH ×2 (08:56→13:01)
[2017-09-21 10:44] VITALS: BP 160/54; PULSE 58
[2017-09-21 12:16] VITALS: BP 160/54; PULSE 58; TEMP 36.8; O2SAT 99
[2017-09-21] MEDS ORDERED: HYDR-3983 PO (15:32)
[2017-09-21] MEDS ORDERED: TRAM-10 PO (15:32)
--- NOTE | 2017-09-21 15:38 | Discharge Instructions ---
Discharge Instructions Date of Service Sep 21, 2017. Admission Reason for Admission: Symtomatic Anemia, Gi Bleed Discharge Discharge Diagnosis / Problem: Anemia, reported heme positive stool Discharge Goals Goal(s): Improve function, Improve disease control Activity Recommendations Activity Level: Assistance Required Exercise/Sports Limitations: as tolerated Shower/Bathe: no limitations . Additional Information Patient informed of condition: Yes Advance Directives: Yes DNR: No Level of Care: Skilled Communicable Disease: No Prognosis: Stable Oxygen at (LPM): 3L [place] Catheter: No Instructions / Follow-Up Instructions / Follow-Up Medications: no changes Patient was a direct admission from gastroenterology office due to worsening anemia as outpatient. She had been transfused 2 units of PRBC on 09/18 for a Hb of 6.9. She was seen in the GI office, stools were reportedly heme positive and she was agreeable to getting endoscopy if needed. Hb was 9.3 on admission and the patient was moving bowels, solid brown stool, no melena Hb remained stable after further consideration Dr. Velazquez felt that endoscopy was not warranted, patient too high a risk for sedation given her multiple comorbidities cleared for d/c back to [facility] Current Hospital Diet Patient's current hospital diet: AHA Diet (Heart Healthy), Diabetes Type 2 Diet Discharge Diet Recommended Diet: AHA Diet (Heart Healthy), Diabetes Type 2 Diet Pending Studies Studies pending at discharge: no Physician Orders On Transfer POLST Discussion: Not Applicable Laboratory Results Hemoglobin A1c Test 08/04/17 06:31 Range/Units Estimated Average Glucose 77 mg/dl Hemoglobin A1c 4.3 L 4.5-5.6 % Medical Emergencies . Who to Call and When: Medical Emergencies: If at any time you feel your situation is an emergency, please call 911 immediately. . Non-Emergent Contact Non-Emergency issues call your: Primary Care Provider Call Non-Emergent contact if: you have any medication questions . . "Provider Documentation" section prepared by Case Chahal. . Core Measure Problem Core Measures: None [place] Drug Monitoring Program Search Results: no issues identified
== END 2017-09-21 16:23 | DRG 812 ==
LOC: C.4E 10:03
PROVIDERS: ADMIT Internal Medicine; ATTEND Internal Medicine
DX: D64.9 Anemia, unspecified (principal); I50.32 Chronic diastolic (congestive) heart failure; I13.0 Hypertensive heart and chronic kidney disease with heart failure and stage 1 through stage 4 chronic kidney disease, or unspecified chronic kidney disease; J96.10 Chronic respiratory failure, unspecified whether with hypoxia or hypercapnia; R19.5 Other fecal abnormalities; K74.60 Unspecified cirrhosis of liver; I48.91 Unspecified atrial fibrillation; E11.22 Type 2 diabetes mellitus with diabetic chronic kidney disease; N18.9 Chronic kidney disease, unspecified; J44.9 Chronic obstructive pulmonary disease, unspecified; I25.10 Atherosclerotic heart disease of native coronary artery without angina pectoris; E03.9 Hypothyroidism, unspecified; K21.9 Gastro-esophageal reflux disease without esophagitis; F32.9 Major depressive disorder, single episode, unspecified; Z79.899 Other long term (current) drug therapy; Z79.01 Long term (current) use of anticoagulants; Z79.4 Long term (current) use of insulin; Z89.512 Acquired absence of left leg below knee; Z87.891 Personal history of nicotine dependence

== ENCOUNTER → 2017-09-24 | Outpatient (CLI) | payer BC, OTHER ==
[~2017-09-24] MED LIST changes: -HMLI7525 SC; +INSU100I SC; +NVLG SC
[2017-09-24 09:48] LABS: BASO % 0.4 %; BASO ABS # 0.02 K/uL (0-0.2); EOS % 6.5 %; EOS ABS # 0.31 K/uL (0-0.5); HEMATOCRIT 25.8 % (37-47); HEMOGLOBIN 8.6 g/dL (12.0-16.0); IG# 0.02 K/uL (0.00-0.02); LYMPH % 14.7 %; MEAN CELL VOLUME 96.6 fL (80-100); MEAN CORPUSCULAR HEMOGLOBIN 32.2 pg (25-34); MEAN CORPUSCULAR HGB CONC 33.3 g/dl (32-36); MEAN PLATELET VOLUME 9.8 fL (7.4-10.4); MONO % 10.1 %; MONO ABS # 0.48 K/uL (0.11-0.59); NEUT % 67.9 %; NEUT ABS # 3.22 K/uL (1.4-6.5); PLATELET COUNT 108 K/uL (130-400); RED CELL DISTRIBUTION WIDTH CV 17.2 % (11.5-14.5); WHITE BLOOD COUNT 4.75 K/uL (4.8-10.8)
[2017-09-24 10:14] LABS: ALBUMIN 3.3 gm/dl (3.4-5.0); ALT/SGPT 15 U/L (12-78); AST/SGOT 10 U/L (15-37); BLOOD UREA NITROGEN 51 mg/dl (7-18); CALCIUM 8.8 mg/dl (8.5-10.1); CARBON DIOXIDE 29 mmol/L (21-32); CREATININE 1.94 mg/dl (0.60-1.20); GLUCOSE 264 mg/dl (70-99); POTASSIUM 5.1 mmol/L (3.5-5.1); SODIUM 139 mmol/L (136-145)
[2017-09-24 10:17] LABS: ALKALINE PHOSPHATASE 101 U/L (45-117); TOTAL PROTEIN 6.5 gm/dl (6.4-8.2)
== END ==
LOC: C.LABCC 08:45
PROVIDERS: ATTEND Internal Medicine
DX: K74.60 Unspecified cirrhosis of liver (principal); D64.9 Anemia, unspecified

== ENCOUNTER → 2017-09-27 | Outpatient (CLI) | payer BC, OTHER | LOC: C.LABCC 16:46 | PROVIDERS: ATTEND Internal Medicine | DX: R30.0 Dysuria (principal); R35.0 Frequency of micturition ==

== ENCOUNTER → 2017-09-29 | Outpatient (CLI) | payer BC, OTHER ==
[2017-09-29 09:03] LABS: BASO % 0.4 %; BASO ABS # 0.02 K/uL (0-0.2); EOS ABS # 0.28 K/uL (0-0.5); HEMATOCRIT 23.3 % (37-47); HEMOGLOBIN 7.9 g/dL (12.0-16.0); IG# 0.03 K/uL (0.00-0.02); LYMPH % 11.5 %; LYMPH ABS # 0.54 K/uL (1.2-3.4); MEAN CELL VOLUME 95.5 fL (80-100); MEAN CORPUSCULAR HEMOGLOBIN 32.4 pg (25-34); MEAN CORPUSCULAR HGB CONC 33.9 g/dl (32-36); MEAN PLATELET VOLUME 9.4 fL (7.4-10.4); MONO ABS # 0.47 K/uL (0.11-0.59); NEUT % 71.5 %; NEUT ABS # 3.34 K/uL (1.4-6.5); PLATELET COUNT 116 K/uL (130-400); RED CELL DISTRIBUTION WIDTH CV 17.3 % (11.5-14.5); RED CELL DISTRIBUTION WIDTH SD 59.7 fL (36.4-46.3); WHITE BLOOD COUNT 4.68 K/uL (4.8-10.8)
[2017-09-29 09:29] LABS: BLOOD UREA NITROGEN 45 mg/dl (7-18); CALCIUM 9.1 mg/dl (8.5-10.1); CARBON DIOXIDE 26 mmol/L (21-32); CREATININE 1.81 mg/dl (0.60-1.20); GLUCOSE 354 mg/dl (70-99); SODIUM 137 mmol/L (136-145)
== END ==
LOC: C.LABCC 08:47
PROVIDERS: ATTEND Internal Medicine
DX: K74.60 Unspecified cirrhosis of liver (principal); D64.9 Anemia, unspecified

== ENCOUNTER → 2017-10-02 | Outpatient (CLI) | payer BC, OTHER ==
[2017-10-02 10:48] LABS: HEP C IGG 13 YRS+OLDER_RFLX NEG (NEG)
[2017-10-03 14:25] LABS: HEPATITIS B CORE IGM TC51854R NON-REACTIVE (NON-REACTIVE)
== END ==
LOC: C.LABCC 08:50
PROVIDERS: ATTEND Internal Medicine
DX: D64.9 Anemia, unspecified (principal); K74.60 Unspecified cirrhosis of liver; R18.8 Other ascites

== ENCOUNTER → 2017-10-06 | Outpatient (CLI) | payer BC, OTHER ==
[2017-10-06 09:08] LABS: BASO % 0.5 %; BASO ABS # 0.02 K/uL (0-0.2); EOS % 7.7 %; EOS ABS # 0.29 K/uL (0-0.5); HEMATOCRIT 22.3 % (37-47); HEMOGLOBIN 7.6 g/dL (12.0-16.0); IG# 0.05 K/uL (0.00-0.02); LYMPH ABS # 0.57 K/uL (1.2-3.4); MEAN CELL VOLUME 95.3 fL (80-100); MEAN CORPUSCULAR HEMOGLOBIN 32.5 pg (25-34); MEAN CORPUSCULAR HGB CONC 34.1 g/dl (32-36); MEAN PLATELET VOLUME 9.2 fL (7.4-10.4); MONO % 11.3 %; MONO ABS # 0.43 K/uL (0.11-0.59); NEUT % 64.2 %; NEUT ABS # 2.43 K/uL (1.4-6.5); PLATELET COUNT 123 K/uL (130-400); RED CELL DISTRIBUTION WIDTH CV 16.9 % (11.5-14.5); RED CELL DISTRIBUTION WIDTH SD 58.9 fL (36.4-46.3); WHITE BLOOD COUNT 3.79 K/uL (4.8-10.8)
[2017-10-06 09:24] LABS: BLOOD UREA NITROGEN 51 mg/dl (7-18); CALCIUM 9.2 mg/dl (8.5-10.1); CARBON DIOXIDE 28 mmol/L (21-32); CREATININE 1.92 mg/dl (0.60-1.20); GLUCOSE 259 mg/dl (70-99); POTASSIUM 4.5 mmol/L (3.5-5.1); SODIUM 139 mmol/L (136-145)
== END ==
LOC: C.LABCC 08:48
PROVIDERS: ATTEND Internal Medicine
DX: N18.9 Chronic kidney disease, unspecified (principal); D63.1 Anemia in chronic kidney disease

== ENCOUNTER → 2017-10-10 | Outpatient (CLI) | payer BC, OTHER | LOC: C.LABCC 22:00 | PROVIDERS: ATTEND Internal Medicine | DX: R19.7 Diarrhea, unspecified (principal) ==

== ENCOUNTER → 2017-10-14 | Outpatient (CLI) | payer BC, OTHER ==
[2017-10-14 08:25] LABS: HEMATOCRIT 21.7 % (37-47); HEMOGLOBIN 7.4 g/dL (12.0-16.0); MEAN CELL VOLUME 94.3 fL (80-100); MEAN CORPUSCULAR HEMOGLOBIN 32.2 pg (25-34); MEAN CORPUSCULAR HGB CONC 34.1 g/dl (32-36); MEAN PLATELET VOLUME 9.4 fL (7.4-10.4); PLATELET COUNT 130 K/uL (130-400); RED CELL DISTRIBUTION WIDTH CV 17.2 % (11.5-14.5); RED CELL DISTRIBUTION WIDTH SD 58.3 fL (36.4-46.3); WHITE BLOOD COUNT 4.28 K/uL (4.8-10.8)
== END ==
LOC: C.LABCC 07:54
PROVIDERS: ATTEND Internal Medicine
DX: D64.9 Anemia, unspecified (principal)

== ENCOUNTER → 2017-10-21 | Outpatient (CLI) | payer BC, OTHER ==
[2017-10-21 08:18] LABS: HEMATOCRIT 21.5 % (37-47); HEMOGLOBIN 7.5 g/dL (12.0-16.0); MEAN CELL VOLUME 93.9 fL (80-100); MEAN CORPUSCULAR HEMOGLOBIN 32.8 pg (25-34); MEAN CORPUSCULAR HGB CONC 34.9 g/dl (32-36); MEAN PLATELET VOLUME 8.8 fL (7.4-10.4); PLATELET COUNT 135 K/uL (130-400); RED CELL DISTRIBUTION WIDTH CV 17.1 % (11.5-14.5); WHITE BLOOD COUNT 3.82 K/uL (4.8-10.8)
[2017-10-21 08:25] LABS: BLOOD UREA NITROGEN 45 mg/dl (7-18); CALCIUM 9.1 mg/dl (8.5-10.1); CARBON DIOXIDE 29 mmol/L (21-32); CREATININE 1.59 mg/dl (0.60-1.20); GLUCOSE 246 mg/dl (70-99); POTASSIUM 4.1 mmol/L (3.5-5.1); SODIUM 139 mmol/L (136-145)
== END ==
LOC: C.LABCC 07:44
PROVIDERS: ATTEND Internal Medicine
DX: D64.9 Anemia, unspecified (principal)

== ENCOUNTER → 2017-10-29 | Outpatient (CLI) | payer BC, OTHER ==
[~2017-10-29] MED LIST changes: +CIPR1TAB11 PO; +PRT/20 PO
[2017-10-29 08:46] LABS: HEMATOCRIT 19.8 % (37-47); MEAN CELL VOLUME 94.7 fL (80-100); MEAN CORPUSCULAR HEMOGLOBIN 33.5 pg (25-34); MEAN CORPUSCULAR HGB CONC 35.4 g/dl (32-36); MEAN PLATELET VOLUME 8.5 fL (7.4-10.4); PLATELET COUNT 109 K/uL (130-400); RED CELL DISTRIBUTION WIDTH CV 17.4 % (11.5-14.5); RED CELL DISTRIBUTION WIDTH SD 59.2 fL (36.4-46.3); WHITE BLOOD COUNT 4.15 K/uL (4.8-10.8)
[2017-10-29 08:48] LABS: BASO % 0.7 %; BASO ABS # 0.03 K/uL (0-0.2); EOS % 5.5 %; EOS ABS # 0.23 K/uL (0-0.5); IG# 0.07 K/uL (0.00-0.02); LYMPH % 13.7 %; LYMPH ABS # 0.57 K/uL (1.2-3.4); MONO % 11.6 %; MONO ABS # 0.48 K/uL (0.11-0.59); NEUT % 66.8 %; NEUT ABS # 2.77 K/uL (1.4-6.5); RETIC COUNT % 11.1 % (0.5-2.0)
--- NOTE | 2017-11-06 12:17 | CODING QUERY MEDICAL NECESSITY ---
SUPPORTING DIAGNOSIS NEEDED A supporting diagnosis is required for the test/procedure performed on this patient in order for us to be reimbursed by the patient's insurance. Please provide a supporting diagnosis for the following test/procedure listed below next to the test name along with your signature. *If there is no additional diagnosis for this patient that would support the following test/procedure please document that below next to the test/procedure. Test(s)/Procedure(s) that require a supporting diagnosis: DOS: 10/29/17 * VITAMIN B12 DIAGNOSIS: * FOLIC ACID DIAGNOSIS: Provider Signature: Date: Thank you Johanny Ng [employer] Once completed, please kindly fax back to [phone] For questions please call [phone]
== END ==
LOC: C.LABCC 07:58
PROVIDERS: ATTEND Internal Medicine
DX: D64.9 Anemia, unspecified (principal)

== ENCOUNTER → 2017-11-03 | Outpatient (CLI) | payer BC, OTHER ==
[2017-11-03 10:04] LABS: BASO % 0.4 %; BASO ABS # 0.02 K/uL (0-0.2); EOS % 3.8 %; EOS ABS # 0.18 K/uL (0-0.5); HEMOGLOBIN 7.3 g/dL (12.0-16.0); IG# 0.04 K/uL (0.00-0.02); LYMPH % 11.9 %; LYMPH ABS # 0.57 K/uL (1.2-3.4); MEAN CELL VOLUME 93.8 fL (80-100); MEAN CORPUSCULAR HEMOGLOBIN 32.6 pg (25-34); MEAN CORPUSCULAR HGB CONC 34.8 g/dl (32-36); MEAN PLATELET VOLUME 8.6 fL (7.4-10.4); MONO % 8.2 %; MONO ABS # 0.39 K/uL (0.11-0.59); NEUT % 74.9 %; NEUT ABS # 3.58 K/uL (1.4-6.5); PLATELET COUNT 114 K/uL (130-400); RED CELL DISTRIBUTION WIDTH CV 17.2 % (11.5-14.5); RED CELL DISTRIBUTION WIDTH SD 58.7 fL (36.4-46.3); WHITE BLOOD COUNT 4.78 K/uL (4.8-10.8)
[2017-11-03 10:14] LABS: BLOOD UREA NITROGEN 65 mg/dl (7-18); CALCIUM 8.7 mg/dl (8.5-10.1); CARBON DIOXIDE 27 mmol/L (21-32); CREATININE 1.83 mg/dl (0.60-1.20); GLUCOSE 289 mg/dl (70-99); POTASSIUM 4.3 mmol/L (3.5-5.1); SODIUM 137 mmol/L (136-145)
== END ==
LOC: C.LABCC 09:20
PROVIDERS: ATTEND Internal Medicine
DX: D64.9 Anemia, unspecified (principal); R60.0 Localized edema

== ENCOUNTER → 2017-11-05 | Outpatient (CLI) | payer BC, OTHER ==
[2017-11-05 10:06] LABS: HEMATOCRIT 17.9 % (37-47); HEMOGLOBIN 6.4 g/dL (12.0-16.0); MEAN CELL VOLUME 94.2 fL (80-100); MEAN CORPUSCULAR HEMOGLOBIN 33.7 pg (25-34); MEAN CORPUSCULAR HGB CONC 35.8 g/dl (32-36); MEAN PLATELET VOLUME 8.5 fL (7.4-10.4); PLATELET COUNT 102 K/uL (130-400); RED CELL DISTRIBUTION WIDTH CV 17.5 % (11.5-14.5)
== END ==
LOC: C.LABCC 08:54
PROVIDERS: ATTEND Internal Medicine
DX: D64.9 Anemia, unspecified (principal)

== ENCOUNTER → 2017-11-10 | Outpatient (CLI) | payer BC, OTHER ==
[2017-11-10 09:06] LABS: BASO % 0.6 %; BASO ABS # 0.02 K/uL (0-0.2); EOS % 5.4 %; EOS ABS # 0.17 K/uL (0-0.5); HEMATOCRIT 22.7 % (37-47); HEMOGLOBIN 7.6 g/dL (12.0-16.0); IG# 0.02 K/uL (0.00-0.02); LYMPH % 14.6 %; LYMPH ABS # 0.46 K/uL (1.2-3.4); MEAN CORPUSCULAR HEMOGLOBIN 31.8 pg (25-34); MEAN CORPUSCULAR HGB CONC 33.5 g/dl (32-36); MEAN PLATELET VOLUME 8.7 fL (7.4-10.4); MONO % 11.5 %; MONO ABS # 0.36 K/uL (0.11-0.59); NEUT % 67.3 %; NEUT ABS # 2.11 K/uL (1.4-6.5); PLATELET COUNT 112 K/uL (130-400); RED CELL DISTRIBUTION WIDTH CV 17.8 % (11.5-14.5); RED CELL DISTRIBUTION WIDTH SD 62.4 fL (36.4-46.3); WHITE BLOOD COUNT 3.14 K/uL (4.8-10.8)
[2017-11-10 09:19] LABS: ALBUMIN 2.8 gm/dl (3.4-5.0); BLOOD UREA NITROGEN 61 mg/dl (7-18); CALCIUM 8.5 mg/dl (8.5-10.1); CARBON DIOXIDE 26 mmol/L (21-32); CREATININE 1.78 mg/dl (0.60-1.20); GLUCOSE 341 mg/dl (70-99); PHOSPHORUS 3.4 mg/dl (2.5-4.9); POTASSIUM 4.4 mmol/L (3.5-5.1); SODIUM 141 mmol/L (136-145)
== END ==
LOC: C.LABCC 08:40
PROVIDERS: ATTEND Internal Medicine
DX: N18.9 Chronic kidney disease, unspecified (principal); D64.9 Anemia, unspecified

== ENCOUNTER → 2017-11-19 | Outpatient (CLI) | payer BC, OTHER ==
[2017-11-19 10:36] LABS: HEMATOCRIT 23.1 % (37-47); HEMOGLOBIN 7.8 g/dL (12.0-16.0); MEAN CELL VOLUME 94.7 fL (80-100); MEAN CORPUSCULAR HGB CONC 33.8 g/dl (32-36); MEAN PLATELET VOLUME 9.3 fL (7.4-10.4); PLATELET COUNT 131 K/uL (130-400); RED CELL DISTRIBUTION WIDTH CV 16.9 % (11.5-14.5); RED CELL DISTRIBUTION WIDTH SD 58.7 fL (36.4-46.3); WHITE BLOOD COUNT 3.92 K/uL (4.8-10.8)
[2017-11-19 11:07] LABS: BLOOD UREA NITROGEN 46 mg/dl (7-18); CALCIUM 8.8 mg/dl (8.5-10.1); CARBON DIOXIDE 32 mmol/L (21-32); GLUCOSE 248 mg/dl (70-99); POTASSIUM 4.1 mmol/L (3.5-5.1); SODIUM 140 mmol/L (136-145)
== END ==
LOC: C.LABCC 09:50
PROVIDERS: ATTEND Internal Medicine
DX: D64.9 Anemia, unspecified (principal)

== ENCOUNTER → 2017-12-02 | Outpatient (CLI) | payer BC, OTHER ==
[2017-12-02 13:56] LABS: BASO % 0.2 %; BASO ABS # 0.01 K/uL (0-0.2); EOS % 4.4 %; EOS ABS # 0.18 K/uL (0-0.5); HEMATOCRIT 21.8 % (37-47); HEMOGLOBIN 7.7 g/dL (12.0-16.0); IG# 0.05 K/uL (0.00-0.02); LYMPH % 13.3 %; LYMPH ABS # 0.54 K/uL (1.2-3.4); MEAN CORPUSCULAR HEMOGLOBIN 33.2 pg (25-34); MEAN CORPUSCULAR HGB CONC 35.3 g/dl (32-36); MONO % 8.6 %; MONO ABS # 0.35 K/uL (0.11-0.59); NEUT % 72.3 %; NEUT ABS # 2.93 K/uL (1.4-6.5); PLATELET COUNT 126 K/uL (130-400); RED CELL DISTRIBUTION WIDTH SD 58.3 fL (36.4-46.3); WHITE BLOOD COUNT 4.06 K/uL (4.8-10.8)
[2017-12-02 14:40] LABS: ALBUMIN 3.2 gm/dl (3.4-5.0); BLOOD UREA NITROGEN 48 mg/dl (7-18); CALCIUM 8.8 mg/dl (8.5-10.1); CARBON DIOXIDE 29 mmol/L (21-32); GLUCOSE 399 mg/dl (70-99); PHOSPHORUS 3.6 mg/dl (2.5-4.9); POTASSIUM 4.6 mmol/L (3.5-5.1); SODIUM 137 mmol/L (136-145)
== END ==
LOC: C.LABCC 12:53
PROVIDERS: ATTEND Internal Medicine
DX: D64.9 Anemia, unspecified (principal)

== ENCOUNTER → 2017-12-08 | Outpatient (CLI) | payer BC, OTHER ==
[~2017-12-08] MED LIST changes: +FRS/40 PO; +INSU70IN2 SC; +POTA20TA13 PO
== END | disposition home or self-care (01) ==
LOC: C.LABCC 07:52
PROVIDERS: ATTEND Internal Medicine
DX: D64.9 Anemia, unspecified (principal); E03.9 Hypothyroidism, unspecified

== ENCOUNTER → 2017-12-09 | Outpatient (CLI) | payer BC, OTHER ==
[2017-12-09 17:20] LABS: ALBUMIN 3.2 gm/dl (3.4-5.0); ALT/SGPT 16 U/L (12-78); BLOOD UREA NITROGEN 49 mg/dl (7-18); CALCIUM 8.8 mg/dl (8.5-10.1); CARBON DIOXIDE 29 mmol/L (21-32); CREATININE 1.96 mg/dl (0.60-1.20); GLUCOSE 213 mg/dl (70-99); HEMATOCRIT 20.1 % (37-47); MEAN CELL VOLUME 94.8 fL (80-100); MEAN CORPUSCULAR HGB CONC 34.8 g/dl (32-36); MEAN PLATELET VOLUME 9.1 fL (7.4-10.4); PLATELET COUNT 116 K/uL (130-400); POTASSIUM 4.5 mmol/L (3.5-5.1); RED CELL DISTRIBUTION WIDTH CV 17.1 % (11.5-14.5); RED CELL DISTRIBUTION WIDTH SD 58.4 fL (36.4-46.3); SODIUM 137 mmol/L (136-145); WHITE BLOOD COUNT 6.79 K/uL (4.8-10.8)
[2017-12-09 17:23] LABS: ALKALINE PHOSPHATASE 83 U/L (45-117); AST/SGOT 16 U/L (15-37); TOTAL PROTEIN 6.5 gm/dl (6.4-8.2)
== END | disposition home or self-care (01) ==
LOC: C.LABCC 16:44
PROVIDERS: ATTEND Internal Medicine
DX: D64.9 Anemia, unspecified (principal)

== ENCOUNTER → 2017-12-16 | Outpatient (CLI) | payer BC, OTHER ==
[~2017-12-16] MED LIST changes: -BISACODYL RE; -CIPR1TAB11 PO; -DULO-24 PO; -INSDGI SC; -LACT1TAB4 PO; -MOML PO; -RIVA1.5T PO; -SALI0.6510 NAE; -SODIENE PR
[2017-12-16 09:25] LABS: ALBUMIN 3.1 gm/dl (3.4-5.0); BLOOD UREA NITROGEN 56 mg/dl (7-18); CALCIUM 9.1 mg/dl (8.5-10.1); CARBON DIOXIDE 30 mmol/L (21-32); GLUCOSE 231 mg/dl (70-99); POTASSIUM 4.6 mmol/L (3.5-5.1); SODIUM 140 mmol/L (136-145)
[2017-12-16 09:26] LABS: PHOSPHORUS 3.8 mg/dl (2.5-4.9)
--- NOTE | 2017-12-25 10:39 | CODING QUERY NO DIAGNOSIS ---
: 1945 TREATMENT RENDERED WITHOUT A DIAGNOSIS To promote full compliance with coding requirements relating to patient care, physician participation is requested in all cases of medical chemist uncertainty. Please assist us with providing a diagnosis/symptom for the test(s) below: A diagnosis/symptom was not documented on your Order. A valid diagnosis/symptom is required to bill all insurances. Please remember that we are unable to code a diagnosis of rule out, probable, possible, questionable, or suspected. Tests that require a diagnosis: DOS: 12/16/17 * MAGNESIUM DIAGNOSIS: * RENAL PROFILE DIAGNOSIS: * PARATHYROID HORMONE INTACT DIAGNOSIS: Provider Signature: Date: Thank you Caryl Haynes Health Information Management Once completed, please kindly fax back to [phone] For questions please call [phone]
== END ==
LOC: C.LABCC 09:00
PROVIDERS: ATTEND Internal Medicine
DX: N17.9 Acute kidney failure, unspecified (principal)

== ENCOUNTER → 2017-12-17 | Outpatient (CLI) | payer BC, OTHER ==
[2017-12-17 09:43] LABS: BASO % 0.4 %; BASO ABS # 0.02 K/uL (0-0.2); EOS % 6.2 %; EOS ABS # 0.29 K/uL (0-0.5); HEMATOCRIT 24.2 % (37-47); IG# 0.08 K/uL (0.00-0.02); LYMPH % 10.1 %; LYMPH ABS # 0.47 K/uL (1.2-3.4); MEAN CELL VOLUME 94.5 fL (80-100); MEAN CORPUSCULAR HEMOGLOBIN 31.3 pg (25-34); MEAN CORPUSCULAR HGB CONC 33.1 g/dl (32-36); MONO % 9.9 %; MONO ABS # 0.46 K/uL (0.11-0.59); NEUT % 71.7 %; NEUT ABS # 3.33 K/uL (1.4-6.5); PLATELET COUNT 141 K/uL (130-400); RED CELL DISTRIBUTION WIDTH CV 16.9 % (11.5-14.5); RED CELL DISTRIBUTION WIDTH SD 57.3 fL (36.4-46.3); WHITE BLOOD COUNT 4.65 K/uL (4.8-10.8)
== END ==
LOC: C.LABCC 08:58
PROVIDERS: ATTEND Internal Medicine
DX: D64.9 Anemia, unspecified (principal)

== ENCOUNTER → 2017-12-22 | Outpatient (CLI) | payer BC, OTHER ==
[2017-12-22 08:26] LABS: BASO % 0.3 %; BASO ABS # 0.02 K/uL (0-0.2); EOS % 4.9 %; EOS ABS # 0.31 K/uL (0-0.5); HEMATOCRIT 24.9 % (37-47); HEMOGLOBIN 8.5 g/dL (12.0-16.0); IG# 0.04 K/uL (0.00-0.02); LYMPH ABS # 0.69 K/uL (1.2-3.4); MEAN CORPUSCULAR HEMOGLOBIN 32.1 pg (25-34); MEAN CORPUSCULAR HGB CONC 34.1 g/dl (32-36); MEAN PLATELET VOLUME 8.8 fL (7.4-10.4); MONO % 8.6 %; MONO ABS # 0.54 K/uL (0.11-0.59); NEUT % 74.6 %; PLATELET COUNT 130 K/uL (130-400); RED CELL DISTRIBUTION WIDTH CV 17.2 % (11.5-14.5); RED CELL DISTRIBUTION WIDTH SD 58.5 fL (36.4-46.3)
== END ==
LOC: C.LABCC 08:05
PROVIDERS: ATTEND Internal Medicine
DX: D64.9 Anemia, unspecified (principal)

== ENCOUNTER → 2017-12-29 | Outpatient (CLI) | payer BC, OTHER | END | disposition home or self-care (01) | LOC: C.LABCC 07:58 | PROVIDERS: ATTEND Internal Medicine | DX: D64.9 Anemia, unspecified (principal) ==

== ENCOUNTER → 2018-01-02 | Day surgery (SDC) | payer BC, OTHER ==
[~2018-01-02] VITALS: Ht 160 cm; Wt 90.0 kg
[~2018-01-02] MED LIST changes: +DALBAVANCIN IV 1,500 MG in DEXTROSE 5% 250ML 250 ML IV SCH
[2018-01-02 10:21] VITALS: BP 142/65; PULSE 62; TEMP 36.5; O2SAT 100; Ht 160 cm; Wt 90.0 kg
== END | disposition home or self-care (01) ==
LOC: C.MTU 10:02
PROVIDERS: ATTEND Internal Medicine Infectious Disease
DX: N76.4 Abscess of vulva (principal)

== ENCOUNTER → 2018-01-06 | Outpatient (CLI) | payer BC, OTHER ==
[~2018-01-06] MED LIST changes: -DALBAVANCIN IV 1,500 MG in DEXTROSE 5% 250ML 250 ML IV SCH
[2018-01-06 08:50] LABS: HEMATOCRIT 23.3 % (37-47); MEAN CELL VOLUME 96.7 fL (80-100); MEAN CORPUSCULAR HEMOGLOBIN 33.2 pg (25-34); MEAN CORPUSCULAR HGB CONC 34.3 g/dl (32-36); MEAN PLATELET VOLUME 8.8 fL (7.4-10.4); NUCLEATED RED BLOOD CELL ABS 0.02 K/uL (0-0); PLATELET COUNT 115 K/uL (130-400); RED CELL DISTRIBUTION WIDTH CV 19.1 % (11.5-14.5); RED CELL DISTRIBUTION WIDTH SD 62.8 fL (36.4-46.3); WHITE BLOOD COUNT 5.69 K/uL (4.8-10.8)
== END ==
LOC: C.LABCC 08:41
PROVIDERS: ATTEND Internal Medicine
DX: D64.9 Anemia, unspecified (principal)

== ENCOUNTER → 2018-01-14 | Outpatient (CLI) | payer BC, OTHER ==
[2018-01-14 09:12] LABS: BASO % 0.4 %; BASO ABS # 0.02 K/uL (0-0.2); EOS % 4.9 %; EOS ABS # 0.24 K/uL (0-0.5); HEMATOCRIT 24.1 % (37-47); HEMOGLOBIN 7.9 g/dL (12.0-16.0); IG# 0.02 K/uL (0.00-0.02); LYMPH % 12.6 %; LYMPH ABS # 0.61 K/uL (1.2-3.4); MEAN CELL VOLUME 99.2 fL (80-100); MEAN CORPUSCULAR HEMOGLOBIN 32.5 pg (25-34); MEAN CORPUSCULAR HGB CONC 32.8 g/dl (32-36); MEAN PLATELET VOLUME 9.2 fL (7.4-10.4); MONO % 12.2 %; MONO ABS # 0.59 K/uL (0.11-0.59); NEUT % 69.5 %; NEUT ABS # 3.37 K/uL (1.4-6.5); PLATELET COUNT 112 K/uL (130-400); RED CELL DISTRIBUTION WIDTH CV 18.5 % (11.5-14.5); RED CELL DISTRIBUTION WIDTH SD 67.1 fL (36.4-46.3); WHITE BLOOD COUNT 4.85 K/uL (4.8-10.8)
== END ==
LOC: C.LABCC 08:52
PROVIDERS: ATTEND Internal Medicine
DX: D64.9 Anemia, unspecified (principal)

== ENCOUNTER → 2018-03-27 | Outpatient (CLI) | payer BC, OTHER ==
[2018-03-27 09:08] LABS: HEMOGLOBIN A1C 5.5 % (4.5-5.6)
== END ==
LOC: C.LABCC 08:14
PROVIDERS: ATTEND Internal Medicine
DX: E78.5 Hyperlipidemia, unspecified (principal)

== ENCOUNTER → 2018-03-29 | Outpatient (CLI) | payer BC, OTHER | LOC: C.LABCC 08:37 | PROVIDERS: ATTEND Internal Medicine | DX: R19.7 Diarrhea, unspecified (principal) ==

== ENCOUNTER → 2018-04-07 | Outpatient (CLI) | payer BC, OTHER ==
[2018-04-07 11:44] LABS: BASO % 0.4 %; BASO ABS # 0.02 K/uL (0-0.2); EOS % 5.5 %; EOS ABS # 0.25 K/uL (0-0.5); HEMATOCRIT 24.3 % (37-47); HEMOGLOBIN 7.9 g/dL (12.0-16.0); IG# 0.06 K/uL (0.00-0.02); LYMPH % 12.9 %; LYMPH ABS # 0.59 K/uL (1.2-3.4); MEAN CELL VOLUME 101.7 fL (80-100); MEAN CORPUSCULAR HEMOGLOBIN 33.1 pg (25-34); MEAN CORPUSCULAR HGB CONC 32.5 g/dl (32-36); MEAN PLATELET VOLUME 9.6 fL (7.4-10.4); MONO % 9.6 %; MONO ABS # 0.44 K/uL (0.11-0.59); NEUT % 70.3 %; PLATELET COUNT 134 K/uL (130-400); RED CELL DISTRIBUTION WIDTH CV 20.4 % (11.5-14.5); RED CELL DISTRIBUTION WIDTH SD 73.8 fL (36.4-46.3); WHITE BLOOD COUNT 4.56 K/uL (4.8-10.8)
[2018-04-07 12:02] LABS: ALBUMIN 2.8 gm/dl (3.4-5.0); ALKALINE PHOSPHATASE 86 U/L (45-117); ALT/SGPT 15 U/L (12-78); AST/SGOT 10 U/L (15-37); BLOOD UREA NITROGEN 78 mg/dl (7-18); CALCIUM 7.9 mg/dl (8.5-10.1); CARBON DIOXIDE 23 mmol/L (21-32); CREATININE 2.96 mg/dl (0.60-1.20); GLUCOSE 76 mg/dl (70-99); POTASSIUM 4.4 mmol/L (3.5-5.1); SODIUM 141 mmol/L (136-145)
== END ==
LOC: C.LABCC 09:23
PROVIDERS: ATTEND Internal Medicine
DX: R25.1 Tremor, unspecified (principal)

== ENCOUNTER → 2018-04-08 | Outpatient (CLI) | payer BC, OTHER ==
[2018-04-08 08:21] LABS: HEMATOCRIT 24.9 % (37-47); MEAN CELL VOLUME 102.5 fL (80-100); MEAN CORPUSCULAR HEMOGLOBIN 32.9 pg (25-34); MEAN CORPUSCULAR HGB CONC 32.1 g/dl (32-36); MEAN PLATELET VOLUME 8.9 fL (7.4-10.4); PLATELET COUNT 127 K/uL (130-400); RED CELL DISTRIBUTION WIDTH SD 73.2 fL (36.4-46.3); WHITE BLOOD COUNT 3.87 K/uL (4.8-10.8)
[2018-04-08 08:31] LABS: ALKALINE PHOSPHATASE 96 U/L (45-117); ALT/SGPT 15 U/L (12-78); AST/SGOT 11 U/L (15-37); BLOOD UREA NITROGEN 70 mg/dl (7-18); CALCIUM 8.3 mg/dl (8.5-10.1); CARBON DIOXIDE 26 mmol/L (21-32); CREATININE 2.65 mg/dl (0.60-1.20); GLUCOSE 118 mg/dl (70-99); POTASSIUM 4.1 mmol/L (3.5-5.1); SODIUM 145 mmol/L (136-145); TOTAL PROTEIN 6.1 gm/dl (6.4-8.2)
== END ==
LOC: C.LABCC 07:51
PROVIDERS: ATTEND Internal Medicine
DX: D64.9 Anemia, unspecified (principal); R79.89 Other specified abnormal findings of blood chemistry

== ENCOUNTER → 2018-04-09 | Outpatient (CLI) | payer BC, OTHER ==
[2018-04-09 08:50] LABS: BASO % 0.7 %; BASO ABS # 0.03 K/uL (0-0.2); EOS % 5.8 %; EOS ABS # 0.25 K/uL (0-0.5); HEMATOCRIT 25.4 % (37-47); HEMOGLOBIN 8.1 g/dL (12.0-16.0); IG# 0.06 K/uL (0.00-0.02); LYMPH % 11.6 %; MEAN CELL VOLUME 103.3 fL (80-100); MEAN CORPUSCULAR HEMOGLOBIN 32.9 pg (25-34); MEAN CORPUSCULAR HGB CONC 31.9 g/dl (32-36); MEAN PLATELET VOLUME 8.8 fL (7.4-10.4); MONO % 11.8 %; MONO ABS # 0.51 K/uL (0.11-0.59); NEUT % 68.7 %; NEUT ABS # 2.96 K/uL (1.4-6.5); PLATELET COUNT 116 K/uL (130-400); RED CELL DISTRIBUTION WIDTH CV 19.8 % (11.5-14.5); RED CELL DISTRIBUTION WIDTH SD 74.3 fL (36.4-46.3); WHITE BLOOD COUNT 4.31 K/uL (4.8-10.8)
[2018-04-09 09:02] LABS: BLOOD UREA NITROGEN 66 mg/dl (7-18); CALCIUM 8.6 mg/dl (8.5-10.1); CARBON DIOXIDE 26 mmol/L (21-32); CREATININE 2.37 mg/dl (0.60-1.20); GLUCOSE 110 mg/dl (70-99); POTASSIUM 4.4 mmol/L (3.5-5.1); SODIUM 144 mmol/L (136-145)
== END ==
LOC: C.LABCC 08:24
PROVIDERS: ATTEND Internal Medicine
DX: R25.1 Tremor, unspecified (principal); N18.9 Chronic kidney disease, unspecified

== ENCOUNTER → 2018-04-13 | Outpatient (CLI) | payer BC, OTHER ==
[2018-04-13 09:41] LABS: BLOOD UREA NITROGEN 55 mg/dl (7-18); CARBON DIOXIDE 25 mmol/L (21-32); CREATININE 2.46 mg/dl (0.60-1.20); GLUCOSE 158 mg/dl (70-99); POTASSIUM 4.4 mmol/L (3.5-5.1); SODIUM 143 mmol/L (136-145)
== END ==
LOC: C.LABCC 08:15
PROVIDERS: ATTEND Internal Medicine
DX: N18.9 Chronic kidney disease, unspecified (principal)

== ENCOUNTER → 2018-04-15 | Outpatient (CLI) | payer BC, OTHER ==
[2018-04-15 09:52] LABS: HEMATOCRIT 25.5 % (37-47); HEMOGLOBIN 7.9 g/dL (12.0-16.0); MEAN CELL VOLUME 105.8 fL (80-100); MEAN CORPUSCULAR HEMOGLOBIN 32.8 pg (25-34); RED CELL DISTRIBUTION WIDTH CV 18.9 % (11.5-14.5); RED CELL DISTRIBUTION WIDTH SD 73.5 fL (36.4-46.3); WHITE BLOOD COUNT 4.98 K/uL (4.8-10.8)
[2018-04-15 10:07] LABS: BLOOD UREA NITROGEN 55 mg/dl (7-18); CALCIUM 8.4 mg/dl (8.5-10.1); CARBON DIOXIDE 28 mmol/L (21-32); CREATININE 2.29 mg/dl (0.60-1.20); GLUCOSE 101 mg/dl (70-99); POTASSIUM 4.4 mmol/L (3.5-5.1); SODIUM 145 mmol/L (136-145)
[2018-04-15 10:34] LABS: BASO % 0.2 %; BASO ABS # 0.01 K/uL (0-0.2); EOS ABS # 0.25 K/uL (0-0.5); IG# 0.02 K/uL (0.00-0.02); LYMPH % 9.6 %; LYMPH ABS # 0.48 K/uL (1.2-3.4); MEAN PLATELET VOLUME 9.1 fL (7.4-10.4); MONO % 9.6 %; MONO ABS # 0.48 K/uL (0.11-0.59); NEUT % 75.2 %; NEUT ABS # 3.74 K/uL (1.4-6.5); PLATELET COUNT 87 K/uL (130-400)
== END ==
LOC: C.LABCC 09:18
PROVIDERS: ATTEND Internal Medicine
DX: R74.8 Abnormal levels of other serum enzymes (principal); N18.9 Chronic kidney disease, unspecified; D64.9 Anemia, unspecified

== ENCOUNTER → 2018-04-23 | Outpatient (CLI) | payer BC, OTHER ==
[2018-04-23 09:34] LABS: ALBUMIN 2.8 gm/dl (3.4-5.0); ALKALINE PHOSPHATASE 88 U/L (45-117); ALT/SGPT 14 U/L (12-78); AST/SGOT 13 U/L (15-37); BLOOD UREA NITROGEN 53 mg/dl (7-18); CALCIUM 8.2 mg/dl (8.5-10.1); CARBON DIOXIDE 28 mmol/L (21-32); CREATININE 2.18 mg/dl (0.60-1.20); GLUCOSE 102 mg/dl (70-99); SODIUM 146 mmol/L (136-145)
== END ==
LOC: C.LABCC 08:46
PROVIDERS: ATTEND Internal Medicine
DX: K74.60 Unspecified cirrhosis of liver (principal)

== ENCOUNTER 2019-06-22 10:32 | Inpatient (IN) ==
--- NOTE | 2019-06-22 11:18 | Emergency Department Note ---
ED Visit Note This patient was seen in concert with Dr. Owens and we discussed and agreed upon the history, physical, assessment, and plan. See attending's note for details. . Resident Activity Tracking Resident Involvement: Resident Care Provided Care Provided: Adult ED
--- NOTE | 2019-06-22 11:24 | XRay Report ---
XR chest 1V portable CLINICAL HISTORY: 74 years-old Female presenting with Dyspnea. TECHNIQUE: Portable upright AP view of the chest was obtained. COMPARISON: 05/26/2019. FINDINGS: Degraded evaluation by head positioning. This limits evaluation of the apices and superior mediastina l silhouette. Right upper extremity PICC terminates in the upper SVC, slightly retracted from prior. Atherosclerosis of the aortic arch. Cardiac silhouette moderately enlarged. Pulmonary vascular promin ence similar to prior. Interval increase in the moderate to large right pleural effusion with poor ae ration of the right mid to lower lung. Minimal left basilar opacity suggested. No large pneumothorax. Degenerative changes of the thoracic spine. Upper abdomen normal. IMPRESSION: 1. Increased moderate to large right pleural effusion with extensive right lung atelectasis. 2. Minimal left basilar opacity possibly atelectasis. 3. Cardiomegaly with volume overload. No ankit pulmonary edema. 4. Low lung volumes. 5. Right upper extremity PICC slightly retracted from prior though remaining in the SVC. Electronically signed by: Kota Petty M.D. 06/22/2019 11:23 AM
[2019-06-22 11:25] LABS: Basophils # (auto) 0.03 K/uL (0-0.2); Basophils % (auto) 0.3 %; Eosinophils % (auto) 1.1 %; Hematocrit (blood only) 30.9 % (37-47); Hemoglobin 9.7 g/dL (12.0-16.0); Immature Granulocytes # (auto) 0.04 K/uL (0.00-0.02); Immature Granulocytes % (auto) 0.5 %; Lymphocytes # (auto) 0.66 K/uL (1.2-3.4); Lymphocytes % (auto) 7.4 %; Mean Corpuscular Hemoglobin 31.8 pg (25-34); Mean Corpuscular Hgb Conc 31.4 g/dL (32-36); Mean Corpuscular Volume 101.3 fL (80-100); Mean Platelet Volume 9.4 fL (7.4-10.4); Monocytes # (auto) 0.75 K/uL (0.11-0.59); Monocytes % (auto) 8.5 %; Neutrophils # (auto) 7.28 K/uL (1.4-6.5); Neutrophils % (auto) 82.2 %; Platelet Count 114 K/uL (130-400); RDW Coefficient of Variation 16.8 % (11.5-14.5); RDW Standard Deviation 62.3 fL (36.4-46.3); Red Blood Count 3.05 M/uL (4.2-5.4); White Blood Count 8.86 K/uL (4.8-10.8)
[2019-06-22 11:36] LABS: Base Excess VBG -1.4 mEq/L; Oxygen Saturation VBG 74.1 %; pH VBG 7.28 (7.36-7.41)
[2019-06-22 11:39] LABS: Albumin Level 2.9 gm/dl (3.4-5.0); BUN Creatinine Ratio 25.4 (10-20); Calcium 8.3 mg/dl (8.5-10.1); Creatinine Clr Calc Pharmacy 24.2 ml/min; Est GFR (African American) 21.6; Est GFR (Non-African American) 18.6; INR 1.4 (0.9-1.1); Magnesium 2.9 mg/dl (1.8-2.4); Partial Thromboplastin Ratio 1.3; Partial Thromboplastin Time 33.9 Seconds (21.0-31.0); Potassium 5.5 mmol/L (3.5-5.1); Prothrombin Time 14.1 Seconds (9.0-12.0)
[2019-06-22 12:14] LABS: Albumin Globulin Ratio 0.9 (0.9-2); Bilirubin,Total 0.5 mg/dl (0.2-1); Globulin 3.3 gm/dl (2.5-4.0); Total Protein 6.2 gm/dl (6.4-8.2); Troponin I 0.48 ng/ml (0-0.045)
[2019-06-22] MEDS ORDERED: ASPIRIN 81 MG CHEW PO STA (12:15)
[2019-06-22] MEDS ORDERED: LACTULOSE SYRUP 30 GM/45 ML UDP PO STA (12:15)
--- NOTE | 2019-06-22 13:05 | History & Physical Report ---
Date of Service June 22, 2019 Assessment & Plan (1) Encephalopathy, hepatic: Will start on lactulose. Consult gastroenterology Present on Admission?: Yes (2) AINSLEY (acute kidney injury): Rule out hepatorenal syndrome. Consult nephrology. Present on Admission?: Yes (3) Pleural effusion on right: Consult pulmonary. Rule out hepatopulmonary syndrome. R/o hydrothorax Present on Admission?: Yes (4) Non-ST elevation GA (NSTEMI): Consult cardiology. Monitor EKG and cardiac enzymes. Present on Admission?: Yes (5) Infective endocarditis: Recent history of endocarditis. Continue IV antibiotics per ID recommendation. Present on Admission?: Yes (6) Gram-positive bacteremia: (7) CKD (chronic kidney disease), stage IV: (8) Cirrhosis: (9) Elevated troponin: Monitor labs closely (10) Increased ammonia level: Patient started on lactulose Continue rifaximin. (11) Chronic diastolic heart failure: (12) Metabolic encephalopathy: Neurochecks every shift. (13) Confusion: (14) Acute renal failure: (15) Cellulitis of right leg: (16) Ambulatory dysfunction: Consult PT OT. import customer service manager for discharge management Present on Admission?: Yes History of Present Illness Chief Complaint: sob Primary Care Provider: [facility] The patient is 74 years old female who is a prison resident. She was sent to the emergency room with a complaints of increasing shortness of breath today. She was found to be tachypneic and tachycardic and had decreased mental status. She has liver cirrhosis and recent history of endocarditis and is currently on IV antibiotics. The further work-up done in the ER showed that patient has acute on chronic renal failure, and her labs show that she has elevated ammonia levels, and troponin and BNP is also high. She will be admitted to the PCU for further evaluation & management. She denies any chest pain. She is complaining of shortness of breath. No fever. No nausea vomiting. She was given lactulose in the ER. CODE STATUS was discussed and she is DNR/DNI Allergies Allergy/AdvReac Type Severity Reaction Status Date / Time duloxetine AdvReac Mild DIZZINESS Verified 06/22/19 11:11 indigotindisulfonic acid AdvReac Unknown "spaced Verified 06/22/19 11:11 out" Home Medications Home Medications Medication Instructions Recorded Confirmed Type Oxygen Home #1 ea 05/29/19 06/21/19 History blood sugar diagnostic strips #10 ea 05/29/19 06/21/19 History fluticasone 250 mcg-salmeterol 50 1 puffs INHALATION BID #60 ea 05/29/19 06/22/19 History mcg/dose blistr powdr for inhalation furosemide 40 mg tablet 40 mg PO QAM #60 tab 05/29/19 06/22/19 History gabapentin 300 mg capsule 300 mg PO BID cap 05/29/19 06/22/19 History insulin human U-100 NPH-regulr 30 unit SUBCUT HS ml 05/29/19 06/22/19 History 70-30 mix 100 unit/mL subcutaneous susp insulin syringe U-100 with needle #10 ea 05/29/19 06/21/19 History 0.3 mL 30 gauge x 1/2" lactulose 20 gram/30 mL oral 20 gm PO DAILY PRN ml 05/29/19 06/22/19 History solution levothyroxine 200 mcg tablet 200 mcg PO QAM tab 05/29/19 06/22/19 History levothyroxine 50 mcg tablet 50 mcg PO QAM tab 05/29/19 06/22/19 History nitroglycerin 0.4 mg sublingual 0.4 mg SL Q5M PRN tab 05/29/19 06/22/19 History tablet pantoprazole 20 mg tablet,delayed 20 mg PO QAM #30 tab 05/29/19 06/22/19 History release ranitidine 150 mg capsule 150 mg PO QAM cap 05/29/19 06/22/19 History rifaximin 550 mg tablet 550 mg PO BID tab 05/29/19 06/22/19 History spironolactone 25 mg tablet 25 mg PO BIDM #180 tab 05/29/19 06/22/19 History tiotropium bromide 18 mcg capsule 1 cap INHALATION QAM #30 puffs 05/29/19 06/22/19 History with inhalation device ascorbic acid (vitamin C) [Vitamin 500 mg PO BID 06/22/19 06/22/19 History C] ceftriaxone 2 g IV DAILY@1300 06/22/19 06/22/19 History ferrous sulfate 325 mg PO BID 06/22/19 06/22/19 History furosemide 20 mg PO UD 06/22/19 06/22/19 History gabapentin 100 mg PO DAILY@1230 06/22/19 06/22/19 History heparin (porcine) 5,000 unit SUBCUT Q8H 06/22/19 06/22/19 History hydrocodone-acetaminophen 1 tab PO TID 06/22/19 06/22/19 History insulin NPH and regular human 35 unit SUBCUT QAM 06/22/19 06/22/19 History [Novolin 70/30 U-100 Insulin] methyl salicylate-menthol [Bengay 1 applic TOPICAL DAILY PRN 06/22/19 06/22/19 History Greaseless] metoprolol tartrate 25 mg PO BID 06/22/19 06/22/19 History multivitamin,tp-jlka-qnckwjol 1 tab PO QAM 06/22/19 06/22/19 History [Therems-M] Past Med/Surg History Medical History Hypothyroidism (Chronic) Ambulatory dysfunction (Chronic) History of anxiety (Chronic) History of hypokalemia (Chronic) Obstructive sleep apnea (Chronic) CHF (congestive heart failure) (Chronic) CKD (chronic kidney disease) stage 3, GFR 30-59 ml/min Complete below knee amputation of left lower extremity Abdominal hernia Family history non-contributory Hip fracture Family History Other Family history non-contributory Social History Preferred Language: Faroese Communication Ability: confused Auto Porter Required: No Beliefs That Will Affect Care: None marital status: Current Living Situation: [facility] Current Living Situation Comment: [facility] Other Information That Helps Us Care for You: No Feels Safe at Home: Yes Safety Concerns: Feels Safe At This Time Smoking Status: Former smoker Hx Alcohol Use: No Hx Substance Use: No Review of Systems Review of Systems: All systems reviewed & are unremarkable except as noted in HPI & below Constitutional: + fatigue, + malaise, + weakness, + anorexia and + daytime sleepiness Respiratory: + cough, + dyspnea and + dyspnea on exertion Cardiovascular: + dyspnea and + dyspnea on exertion Gastrointestinal: + nausea Psychiatric: + behavioral changes and + confusion Physical Exam Constitutional: cooperative Eyes: PERRL, conjunctivae normal, anicteric sclerae ENMT: external ear and nose normal, oropharynx normal Neck: trachea midline, no thyromegaly Respiratory: + dullness to percussion Auscultation: + diminished lung sounds (Decreased breath sounds right base.) Cardiovascular: Rate/Rhythm: regular rate and regular rhythm Chest (Breasts): normal inspection/palpation of breasts Musculoskeletal: Amputation of the left leg noted. Partial amputation of the right foot noted Skin: no rashes, warm and dry Neurologic: patellar DTR's 2+ bilat, sensation intact normal touch/pain/proprioception and CN's II-XI intact bilaterally Cranial Nerves: EOM intact bilaterally Psychiatric: A+Ox3, euthymic affect Orientation: oriented to place, oriented to time and cooperative Eye Contact: + fair eye contact Motor Behavior: no abnormal motor movements Lymphatic: no cervical or axillary lymphadenopathy Results & Data Vital Signs (Past 12 Hours) Vital Signs Pulse Resp BP BP Pulse Ox 06/22/19 12:51 129/75 06/22/19 12:40 110 H 20 93 06/22/19 12:30 107 H 22 99 06/22/19 12:20 101 H 19 99 06/22/19 12:10 104 H 20 99 06/22/19 12:00 93 H 19 98 06/22/19 11:50 89 21 97 06/22/19 11:40 98 H 20 98 06/22/19 11:30 100 H 21 99 06/22/19 11:20 94 H 22 97 06/22/19 11:10 27 H 95 06/22/19 11:00 106 H 25 H 98 06/22/19 10:55 93 H 24 96 06/22/19 10:50 99 H 21 96 06/22/19 10:45 109 H 20 108/73 96 06/22/19 10:42 116 H 23 108/73 97 06/22/19 10:41 24 96 Code Status & VTE Plan VTE Prophylaxis Plan VTE Prophylaxis will be ordered: Yes PG Care Time/CCT Total # of Minutes Spent Total Time Spent with Patient: Total time spent is greater than 50% in coordination of care (as documented) at patient's floor/unit and/or counseling patient: (1) Acute renal failure Acute renal failure type: unspecified Qualified Code(s): N17.9 - Acute kidney failure, unspecified
[2019-06-22] MEDS ORDERED: MoRPHine SULFATE 2 MG/ML CARP IV PRN (14:07)
[2019-06-22] MEDS ORDERED: NITROGLYCERIN SL 0.4 MG/TAB TAB SL PRN (14:07)
[2019-06-22] MEDS ORDERED: ONDANSETRON INJ 2 MG/ML 2 ML VIAL IV PRN (14:07)
[2019-06-22] MEDS ORDERED: NON-FORMULARY MEDICATION (Ceftriaxone 2 GM) IV SCH (14:07)
--- NOTE | 2019-06-22 14:21 | Emergency Department Note ---
Entered by Ranjan Kramer acting as a scribe for Sohail Owens M.D. History of Present Illness General Chief complaint: Respiratory Problems Time Seen by Provider: 06/22/19 10:54 Source: patient History of Present Illness Provider complaint: Shortness of breath Onset (ago): day(s) (Couple days) Location: chest Pain Consistency: + constant Relieved By: + none Exacerbated By: + none Associated symptoms: + shortness of breath and + other (Weight gain) The patient is a 74 year old female who presents to the Emergency Room via EMS from [facility] with complaints of constant shortness of breath that has been persistent for the past couple of days. Per the EMS report, the patient was sating in the 70s on 3L of supplemental oxygen, which is what she is normally on at baseline. The patient also was hypotensive upon EMS's arrival at [facility]. The staff at [facility] also reports that the patient has had a recent weight gain of 4.4lbs in the past 20 hours. The patient was recently discharged from [facility] after being hospitalized for mitral valve endocarditis. She has a PICC line in her RUE that she states is causing some discomfort. The patient mentioned that nothing seems to help relieve her symptoms nor does anything make them worse. Home Medications Home Medications Medication Instructions Recorded Confirmed Type Oxygen Home #1 ea 05/29/19 06/21/19 History blood sugar diagnostic strips #10 ea 05/29/19 06/21/19 History fluticasone 250 mcg-salmeterol 50 1 puffs INHALATION BID #60 ea 05/29/19 06/22/19 History mcg/dose blistr powdr for inhalation furosemide 40 mg tablet 40 mg PO QAM #60 tab 05/29/19 06/22/19 History gabapentin 300 mg capsule 300 mg PO BID cap 05/29/19 06/22/19 History insulin human U-100 NPH-regulr 30 unit SUBCUT HS ml 05/29/19 06/22/19 History 70-30 mix 100 unit/mL subcutaneous susp insulin syringe U-100 with needle #10 ea 05/29/19 06/21/19 History 0.3 mL 30 gauge x 1/2" lactulose 20 gram/30 mL oral 20 gm PO DAILY PRN ml 05/29/19 06/22/19 History solution levothyroxine 200 mcg tablet 200 mcg PO QAM tab 05/29/19 06/22/19 History levothyroxine 50 mcg tablet 50 mcg PO QAM tab 05/29/19 06/22/19 History nitroglycerin 0.4 mg sublingual 0.4 mg SL Q5M PRN tab 05/29/19 06/22/19 History tablet pantoprazole 20 mg tablet,delayed 20 mg PO QAM #30 tab 05/29/19 06/22/19 History release ranitidine 150 mg capsule 150 mg PO QAM cap 05/29/19 06/22/19 History rifaximin 550 mg tablet 550 mg PO BID tab 05/29/19 06/22/19 History spironolactone 25 mg tablet 25 mg PO BIDM #180 tab 05/29/19 06/22/19 History tiotropium bromide 18 mcg capsule 1 cap INHALATION QAM #30 puffs 05/29/19 06/22/19 History with inhalation device ascorbic acid (vitamin C) [Vitamin 500 mg PO BID 06/22/19 06/22/19 History C] ceftriaxone 2 g IV DAILY@1300 06/22/19 06/22/19 History ferrous sulfate 325 mg PO BID 06/22/19 06/22/19 History furosemide 20 mg PO UD 06/22/19 06/22/19 History gabapentin 100 mg PO DAILY@1230 06/22/19 06/22/19 History heparin (porcine) 5,000 unit SUBCUT Q8H 06/22/19 06/22/19 History hydrocodone-acetaminophen 1 tab PO TID 06/22/19 06/22/19 History insulin NPH and regular human 35 unit SUBCUT QAM 06/22/19 06/22/19 History [Novolin 70/30 U-100 Insulin] methyl salicylate-menthol [Bengay 1 applic TOPICAL DAILY PRN 06/22/19 06/22/19 History Greaseless] metoprolol tartrate 25 mg PO BID 06/22/19 06/22/19 History multivitamin,it-grdp-xsnpepxd 1 tab PO QAM 06/22/19 06/22/19 History [Therems-M] Allergies Allergy/AdvReac Type Severity Reaction Status Date / Time duloxetine AdvReac Mild DIZZINESS Verified 06/22/19 11:11 indigotindisulfonic acid AdvReac Unknown "spaced Verified 06/22/19 11:11 out" Past Med/Surg History Medical History Hypothyroidism (Chronic) Ambulatory dysfunction (Chronic) History of anxiety (Chronic) History of hypokalemia (Chronic) Obstructive sleep apnea (Chronic) CHF (congestive heart failure) (Chronic) CKD (chronic kidney disease) stage 3, GFR 30-59 ml/min Complete below knee amputation of left lower extremity Abdominal hernia Family history non-contributory Hip fracture Family History Other Family history non-contributory Social History Preferred Language: Persian Communication Ability: confused Stitchdowns Toe Former Required: No Beliefs That Will Affect Care: None marital status: Current Living Situation: Jail Current Living Situation Comment: [facility] Other Information That Helps Us Care for You: No Feels Safe at Home: Yes Safety Concerns: Feels Safe At This Time Smoking Status: Former smoker Hx Alcohol Use: No Hx Substance Use: No Review of Systems See HPI for pertinent positives & negatives. and A total of 10 systems reviewed and were otherwise negative Physical Exam Vital Signs Vital Signs - 24 hr 06/22/19 10:41 06/22/19 10:42 06/22/19 10:45 Sepsis Recent Fever Within 48 Hours No Sepsis New/Unexplained Change in Mental Status No Sepsis Action Taken by Nursing No Action Required Pulse Rate 116 H 109 H Pulse Rate from SpO2 Sensor 120 H 110 H Pulse Rhythm Respiratory Rate 24 23 20 Respiratory Pattern Blood Pressure 108/73 108/73 Blood Pressure [Left Arm] Blood Pressure Mean 84 84 Blood Pressure Mean [Left Arm] Pulse Oximetry 96 97 96 Oxygen Delivery Method Nasal Cannula Nasal Cannula Nasal Cannula Oxygen Flow Rate 3 3 3 06/22/19 10:50 06/22/19 10:55 06/22/19 11:00 Sepsis Recent Fever Within 48 Hours Sepsis New/Unexplained Change in Mental Status Sepsis Action Taken by Nursing Pulse Rate 99 H 93 H 106 H Pulse Rate from SpO2 Sensor 104 H 90 Pulse Rhythm Irregular Respiratory Rate 21 24 25 H Respiratory Pattern Regular Blood Pressure Blood Pressure [Left Arm] Blood Pressure Mean Blood Pressure Mean [Left Arm] Pulse Oximetry 96 96 98 Oxygen Delivery Method Nasal Cannula Room Air Nasal Cannula Oxygen Flow Rate 3 3 3 06/22/19 11:10 06/22/19 11:20 06/22/19 11:30 Sepsis Recent Fever Within 48 Hours Sepsis New/Unexplained Change in Mental Status Sepsis Action Taken by Nursing Pulse Rate 94 H 100 H Pulse Rate from SpO2 Sensor 100 H 93 H 95 H Pulse Rhythm Respiratory Rate 27 H 22 21 Respiratory Pattern Blood Pressure Blood Pressure [Left Arm] Blood Pressure Mean Blood Pressure Mean [Left Arm] Pulse Oximetry 95 97 99 Oxygen Delivery Method Nasal Cannula Nasal Cannula Nasal Cannula Oxygen Flow Rate 3 3 3 06/22/19 11:40 06/22/19 11:50 06/22/19 12:00 Sepsis Recent Fever Within 48 Hours Sepsis New/Unexplained Change in Mental Status Sepsis Action Taken by Nursing Pulse Rate 98 H 89 93 H Pulse Rate from SpO2 Sensor 102 H 92 H 96 H Pulse Rhythm Respiratory Rate 20 21 19 Respiratory Pattern Blood Pressure Blood Pressure [Left Arm] Blood Pressure Mean Blood Pressure Mean [Left Arm] Pulse Oximetry 98 97 98 Oxygen Delivery Method Nasal Cannula Nasal Cannula Nasal Cannula Oxygen Flow Rate 3 3 3 06/22/19 12:10 06/22/19 12:20 06/22/19 12:30 Sepsis Recent Fever Within 48 Hours Sepsis New/Unexplained Change in Mental Status Sepsis Action Taken by Nursing Pulse Rate 104 H 101 H 107 H Pulse Rate from SpO2 Sensor 101 H 98 H 101 H Pulse Rhythm Respiratory Rate 20 19 22 Respiratory Pattern Blood Pressure Blood Pressure [Left Arm] Blood Pressure Mean Blood Pressure Mean [Left Arm] Pulse Oximetry 99 99 99 Oxygen Delivery Method Nasal Cannula Nasal Cannula Nasal Cannula Oxygen Flow Rate 3 3 3 06/22/19 12:40 06/22/19 12:50 06/22/19 12:51 Sepsis Recent Fever Within 48 Hours Sepsis New/Unexplained Change in Mental Status Sepsis Action Taken by Nursing Pulse Rate 110 H 85 92 H Pulse Rate from SpO2 Sensor 102 H 87 86 Pulse Rhythm Respiratory Rate 20 21 20 Respiratory Pattern Blood Pressure 129/75 Blood Pressure [Left Arm] 129/75 Blood Pressure Mean 93 Blood Pressure Mean [Left Arm] 93 Pulse Oximetry 93 99 100 Oxygen Delivery Method Nasal Cannula Nasal Cannula Nasal Cannula Oxygen Flow Rate 3 3 3 GENERAL: Awake, alert to verbal stimuli, chronically ill-appearing fatigued HENT: Normocephalic, atraumatic. EYES: Normal conjunctiva. Sclera non-icteric. NECK: Supple. No nuchal rigidity. RESPIRATORY: Diminished right lower lung sounds. No wheezes. Normal respiratory effort on 3L NC CARDIAC: Normal rate. Normal rhythm. Extremities warm and well perfused. GI: Soft, non-distended. No tenderness to palpation. No rebound or guarding. RECTAL: Deferred. MUSCULOSKELETAL: Atraumatic. Chest examination reveals no tenderness. LOWER EXTREMITIES: Erythema and chronic stasis to the RLE; 2+ edema. Left AKA. NEURO: Moving all 4 extremities. Slightly confused. Falling asleep during que stioning. SKIN: Warm and dry. No jaundice noted. Course 1058: Past medical records reviewed. The patient was evaluated in room B07 by the resident Dr. Landon, and a complete history and physical examination were performed. I then performed my own assessment of the patient. 1140: I reevaluated the patient and updated her on results. I also updated her on the treatment plan. 1225: I spoke to Dr. Schroeder - [facility] Hospitalist about the patient's case. He is going to evaluate the patient for further evaluation. Consultations Consultation #1: I spoke to Dr. Schroeder [facility] Hospitalist about the patient's case. He is going to evaluate the patient for further evaluation. Time: 12:25 Administered Medications Discontinued Medications Aspirin (Aspirin Chew) 324 mg PO NOW STA Stop: 06/22/19 12:16 Last Admin: 06/22/19 12:45 Dose: 324 mg Documented by: [id number] Lactulose (Chronulac) 30 gm PO NOW STA Stop: 06/22/19 12:16 Last Admin: 06/22/19 12:45 Dose: 30 gm Documented by: [id number] Medical Decision Making Differential Diagnosis Differential diagnoses includes but is not limited to pneumonia, bronchitis, COPD/Asthma exacerbation, pneumothorax, pulmonary embolism, congestive heart failure, acute coronary syndrome, amongst others. Medical Records Attestation: I reviewed the patient's medical records. Home Medications Current Medication List: was personally reviewed by me Laboratory Data Attestation: I reviewed the patient's lab results. Result diagrams: 06/22/19 11:10 06/22/19 11:10 Lab Results 06/22/19 06/22/19 06/22/19 Range/Units 11:10 11:10 11:10 WBC 8.86 (4.8-10.8) K/uL RBC 3.05 L (4.2-5.4) M/uL Hgb 9.7 L (12.0-16.0) g/dL Hct 30.9 L (37-47) % MCV 101.3 H (80-100) fL MCH 31.8 (25-34) pg MCHC 31.4 L (32-36) g/dL RDW Std Deviation 62.3 H (36.4-46.3) fL RDW Coeff of Earl 16.8 H (11.5-14.5) % Plt Count 114 L (130-400) K/uL MPV 9.4 (7.4-10.4) fL Immature Gran % (Auto) 0.5 % Neut % (Auto) 82.2 % Lymph % (Auto) 7.4 % Falls % (Auto) 8.5 % Eos % (Auto) 1.1 % Baso % (Auto) 0.3 % Immature Gran # (Auto) 0.04 H (0.00-0.02) K/uL Neut # (Auto) 7.28 H (1.4-6.5) K/uL Lymph # (Auto) 0.66 L (1.2-3.4) K/uL Falls # (Auto) 0.75 H (0.11-0.59) K/uL Eos # (Auto) 0.10 (0-0.5) K/uL Baso # (Auto) 0.03 (0-0.2) K/uL PT 14.1 H (9.0-12.0) Seconds INR 1.4 H (0.9-1.1) APTT 33.9 H (21.0-31.0) Seconds PTT Ratio 1.3 VBG pH (7.36-7.41) VBG pCO2 (38-50) mmHg VBG pO2 mmHg VBG HCO3 mmol/L VBG O2 Saturation % VBG Base Excess mEq/L Barometric Pressure mm/Hg Sodium 141 (136-145) mmol/L Potassium 5.5 H (3.5-5.1) mmol/L Chloride 107 (98-107) mmol/L Carbon Dioxide 27 (21-32) mmol/L Anion Gap 7.0 (3-11) BUN 62 H (7-18) mg/dl Creatinine 2.45 H (0.6-1.2) mg/dl Est Cr Clr Drug Dosing 24.2 ml/min Est GFR ( Amer) 21.6 Est GFR (Non-Af Amer) 18.6 BUN/Creatinine Ratio 25.4 H (10-20) Glucose 91 (70-99) mg/dl Lactate (0.4-2.0) mmol/L Calcium 8.3 L (8.5-10.1) mg/dl Magnesium 2.9 H (1.8-2.4) mg/dl Total Bilirubin 0.5 (0.2-1) mg/dl AST 176 H (15-37) U/L ALT 147 H (12-78) U/L Alkaline Phosphatase 96 (45-117) U/L Ammonia (11-32) umol/L Troponin I 0.480 H* (0-0.045) ng/ml NT-Pro-B Natriuret Pep 76586 H (0-900) pg/ml Total Protein 6.2 L (6.4-8.2) gm/dl Albumin 2.9 L (3.4-5.0) gm/dl Globulin 3.3 (2.5-4.0) gm/dl Albumin/Globulin Ratio 0.9 (0.9-2) 06/22/19 06/22/19 06/22/19 Range/Units 11:10 11:10 11:15 WBC (4.8-10.8) K/uL RBC (4.2-5.4) M/uL Hgb (12.0-16.0) g/dL Hct (37-47) % MCV (80-100) fL MCH (25-34) pg MCHC (32-36) g/dL RDW Std Deviation (36.4-46.3) fL RDW Coeff of Earl (11.5-14.5) % Plt Count (130-400) K/uL MPV (7.4-10.4) fL Immature Gran % (Auto) % Neut % (Auto) % Lymph % (Auto) % Falls % (Auto) % Eos % (Auto) % Baso % (Auto) % Immature Gran # (Auto) (0.00-0.02) K/uL Neut # (Auto) (1.4-6.5) K/uL Lymph # (Auto) (1.2-3.4) K/uL Falls # (Auto) (0.11-0.59) K/uL Eos # (Auto) (0-0.5) K/uL Baso # (Auto) (0-0.2) K/uL PT (9.0-12.0) Seconds INR (0.9-1.1) APTT (21.0-31.0) Seconds PTT Ratio VBG pH 7.28 L (7.36-7.41) VBG pCO2 57 H (38-50) mmHg VBG pO2 43 mmHg VBG HCO3 26 mmol/L VBG O2 Saturation 74.1 % VBG Base Excess -1.4 mEq/L Barometric Pressure 735.8 mm/Hg Sodium (136-145) mmol/L Potassium (3.5-5.1) mmol/L Chloride (98-107) mmol/L Carbon Dioxide (21-32) mmol/L Anion Gap (3-11) BUN (7-18) mg/dl Creatinine (0.6-1.2) mg/dl Est Cr Clr Drug Dosing ml/min Est GFR ( Amer) Est GFR (Non-Af Amer) BUN/Creatinine Ratio (10-20) Glucose (70-99) mg/dl Lactate 1.8 (0.4-2.0) mmol/L Calcium (8.5-10.1) mg/dl Magnesium (1.8-2.4) mg/dl Total Bilirubin (0.2-1) mg/dl AST (15-37) U/L ALT (12-78) U/L Alkaline Phosphatase (45-117) U/L Ammonia 104.0 H (11-32) umol/L Troponin I (0-0.045) ng/ml NT-Pro-B Natriuret Pep (0-900) pg/ml Total Protein (6.4-8.2) gm/dl Albumin (3.4-5.0) gm/dl Globulin (2.5-4.0) gm/dl Albumin/Globulin Ratio (0.9-2) Imaging Data Radiologist's Impression: Radiology results as stated below per my review and the radiologist's interpretation: XR chest 1V portable CLINICAL HISTORY: 74 years-old Female presenting with Dyspnea. TECHNIQUE: Portable upright AP view of the chest was obtained. COMPARISON: 05/26/2019. FINDINGS: Degraded evaluation by head positioning. This limits evaluation of the apices and superior mediastinal silhouette. Right upper extremity PICC terminates in the upper SVC, slightly retracted from prior. Atherosclerosis of the aortic arch. Cardiac silhouette moderately enlarged. Pulmonary vascular prominence similar to prior. Interval increase in the moderate to large right pleural effusion with poor aeration of the right mid to lower lung. Minimal left basilar opacity suggested. No large pneumothorax. Degenerative changes of the thoracic spine. Upper abdomen normal. IMPRESSION: 1. Increased moderate to large right pleural effusion with extensive right lung atelectasis. 2. Minimal left basilar opacity possibly atelectasis. 3. Cardiomegaly with volume overload. No ankit pulmonary edema. 4. Low lung volumes. 5. Right upper extremity PICC slightly retracted from prior though remaining in the SVC. Electronically signed by: Kota Petty M.D. 06/22/2019 11:23 AM ECG Data Attestation: I personally reviewed and interpreted this ECG as follows: Indication: SOB/dyspnea Rate (beats per minute): 109 Rhythm: atrial fibrillation (With RVR) Findings: + RBBB; no ST elevation Comparison ECG Date: from (05/21/19) Change: the following changes noted (Heart rate has increased. ) Blood Pressure Blood Pressure Findings: Normal blood pressure MDM Narrative Patient is a 74-year-old female under treatment currently for endocarditis at [facility] presents today with report of respiratory issues. EMS states the patient was hypoxic into the 70s on 3 L with a decreased blood pressure. Patient does have a right upper extremity PICC line. Patient upon arrival denies any difficulty breathing. Was report of a slight weight gain 4 pounds over the past day. Slightly tachycardic here but stable on 3 L oxygen at 96%. Evidently the patient is normally on 3 L at baseline. Patient is a bit of a poor historian. Resident did call and discuss with facility. They report she is been short of breath at times. Patient seems somewhat confused and seems to fall asleep during questioning here. Concern for possible metabolic versus infectious etiology causing some of encephalopathic. Chest x-ray does show evidence of increase in right pleural effusion. No leukocytosis or significant new anemia is noted. Patient has worsened renal function. Troponin is elevated 0.48 but the patient without active changes and no STEMI. Question hepatorenal syndrome. Given aspirin. Ammonia elevated and I believe she is more hepatic encephalopathy at this point. Given lactulose. Discussed with the hospitalist and the patient for admission. Not hypoxic here and only slightly hypercarbic do not feel that she requires BiPAP or intubation at this point although will require close monitoring. Impression & Plan Encephalopathy, hepatic, AINSLEY (acute kidney injury), Pleural effusion on right, Non-ST elevation PR (NSTEMI), Hyperkalemia Critical Care Time Critical Care Time: Yes Total Critical Care Time: 35 I have personally spent greater than 35 minutes of critical care time in the direct management of this patient. This includes bedside care, interpretation of diagnostic studies, and testing, discussion with consultants, patient, and family members, and other required patient management activities. This 35 minutes is in excess of all separately billable procedures. Discharge Plan Visit Data Chief Complaint: Respiratory Problems ED Provider: Sohail Owens ED Midlevel Provider: Tirso Landon Discharge Problem: Encephalopathy, hepatic, AINSLEY (acute kidney injury), Pleural effusion on right, Non-ST elevation PR (NSTEMI), Hyperkalemia Patient Disposition: Being Evaluated by Hospitalist Discharge Instructions Interventions: ED Discharge Assessment Last Done: 06/22/19 13:38 The scribe's documentation has been prepared under my direction and personally reviewed by me in its entirety. I confirm that the note above accurately reflects all work, treatment, procedures, and medical decision making performed by me.
[2019-06-22 15:00] LABS: Appearance Urine Clear (Clear); Bacteria Urine Automated Negative (Negative); Bilirubin Urine Negative (Negative); Blood Urine Negative (Negative); Color Urine Dark Yellow; Epithelial Cell Urine Auto >30 /lpf (0-5); Glucose Urine UA Negative (Negative); Ketones Urine Negative (Negative); Leukocyte Esterase Urine Trace (Negative); Nitrite Urine Negative (Negative); Protein Urine Trace (Negative); Specific Gravity Urine 1.018 (1.000-1.030); Urobilinogen Urine Negative (Negative)
--- NOTE | 2019-06-22 15:18 | Nephrology Consultation ---
Date of Consultation June 22, 2019 Assessment & Plan (1) AINSLEY (acute kidney injury): Valery Gloria is a 74-year-old female with past medical history significant for stage 4 chronic kidney disease baseline creatinine around 1.6- 1.7 and eGFR around 35. Chronic kidney disease most likely secondary to microvascular disease with history of hypertension, diabetes and obesity versus hepatorenal syndrome type 2 versus chronic intravascular volume depletion with high dose diuretics. Prior urinalysis showed only trace proteinuria. Admitted with progressive shortness of breath, change in mental status. On admission she was found to have right-sided large pleural effusion, acute kidney injury and hyperkalemia. Ammonia level was elevated at 104 Acute kidney injury most hemodynamically mediated vs hepatorenal syndrome. Clinically seems volume depleted --would hold diuretics for now. discontinue spironolactone, repeat potassium in the evening. Encourage po intake, may need IV fluid if po intake is not adequate --monitor renal function electrolyte closely, if renal function continues to worsen, will consider midodrine and octreotide --decrease gabapentin to maximum dose 300 mg per day --dose medications for GFR less than 30 Will follow Thank you for allowing me to participate in your patient's care. It was a pleasure to see Valery (2) Encephalopathy, hepatic: (3) Anemia: (4) CKD (chronic kidney disease), stage IV: (5) Acute UTI: History of Present Illness Reason for Consultation: Acute kidney injury and hyperkalemia. Attending Physician: Duke Graham MD History of Present Illness Valery Gloria is a 74-year-old female with past medical history significant for stage IV CKD, history of cirrhosis with portal hypertension and splenomegaly admitted to the hospital with hepatic encephalopathy. Nephrology consult was requested to manage acute kidney injury and hyperkalemia. Electronic medical records including labs and imaging are reviewed in detail during patient's visit. Valery presented to the hospital with several days history of progressive shortness of breath, weight gain and change in mental status. On admission she was found to have a right-sided moderate to large pleural effusion and elevated ammonia level at 104. Blood pressure relatively stable. Lab showed acute kidney injury with creatinine 2.5 and hyperkalemia, potassium was 5.5. Has history of cirrhosis with portal hypertension splenomegaly. She has multiple upper GI varices, hiatus hernia and gastritis without any active bleeding. Has anemia of chronic disease most likely due to cirrhosis and splenomegaly. She has been getting intermittent blood transfusion. Has history of left below- knee amputation. Has history of stage 4 CKD, b/l cr 1.6-1.9 and eGFR around 26-30 secondary to microvascular disease versus hepatorenal syndrome. Prior urinalysis showed only trace proteinuria but no hematuria. She has history of recurrent urinary tract infection with multiple different organisms including Klebsiella, Pseudomonas and E coli. Prior imaging study showed otherwise normal size kidney. Denies any chronic NSAID use. No family history of chronic kidney disease or end-stage renal disease. She is a nonsmoker. Currently feels tired and thirsty. Denies SOB. Has been having decent UO. Allergies Allergy/AdvReac Type Severity Reaction Status Date / Time duloxetine AdvReac Mild DIZZINESS Verified 06/22/19 11:11 indigotindisulfonic acid AdvReac Unknown "spaced Verified 06/22/19 11:11 out" Home Medications Home Medications Medication Instructions Recorded Confirmed Type Oxygen Home #1 ea 05/29/19 06/21/19 History blood sugar diagnostic strips #10 ea 05/29/19 06/21/19 History fluticasone 250 mcg-salmeterol 50 1 puffs INHALATION BID #60 ea 05/29/19 06/22/19 History mcg/dose blistr powdr for inhalation furosemide 40 mg tablet 40 mg PO QAM #60 tab 05/29/19 06/22/19 History gabapentin 300 mg capsule 300 mg PO BID cap 05/29/19 06/22/19 History insulin human U-100 NPH-regulr 30 unit SUBCUT HS ml 05/29/19 06/22/19 History 70-30 mix 100 unit/mL subcutaneous susp insulin syringe U-100 with needle #10 ea 05/29/19 06/21/19 History 0.3 mL 30 gauge x 1/2" lactulose 20 gram/30 mL oral 20 gm PO DAILY PRN ml 05/29/19 06/22/19 History solution levothyroxine 200 mcg tablet 200 mcg PO QAM tab 05/29/19 06/22/19 History levothyroxine 50 mcg tablet 50 mcg PO QAM tab 05/29/19 06/22/19 History nitroglycerin 0.4 mg sublingual 0.4 mg SL Q5M PRN tab 05/29/19 06/22/19 History tablet pantoprazole 20 mg tablet,delayed 20 mg PO QAM #30 tab 05/29/19 06/22/19 History release ranitidine 150 mg capsule 150 mg PO QAM cap 05/29/19 06/22/19 History rifaximin 550 mg tablet 550 mg PO BID tab 05/29/19 06/22/19 History spironolactone 25 mg tablet 25 mg PO BIDM #180 tab 05/29/19 06/22/19 History tiotropium bromide 18 mcg capsule 1 cap INHALATION QAM #30 puffs 05/29/19 06/22/19 History with inhalation device ascorbic acid (vitamin C) [Vitamin 500 mg PO BID 06/22/19 06/22/19 History C] ceftriaxone 2 g IV DAILY@1300 06/22/19 06/22/19 History ferrous sulfate 325 mg PO BID 06/22/19 06/22/19 History furosemide 20 mg PO UD 06/22/19 06/22/19 History gabapentin 100 mg PO DAILY@1230 06/22/19 06/22/19 History heparin (porcine) 5,000 unit SUBCUT Q8H 06/22/19 06/22/19 History hydrocodone-acetaminophen 1 tab PO TID 06/22/19 06/22/19 History insulin NPH and regular human 35 unit SUBCUT QAM 06/22/19 06/22/19 History [Novolin 70/30 U-100 Insulin] methyl salicylate-menthol [Bengay 1 applic TOPICAL DAILY PRN 06/22/19 06/22/19 History Greaseless] metoprolol tartrate 25 mg PO BID 06/22/19 06/22/19 History multivitamin,xy-jold-ohcpqgfo 1 tab PO QAM 06/22/19 06/22/19 History [Therems-M] Patient History Medical History Hypothyroidism (Chronic) Ambulatory dysfunction (Chronic) History of anxiety (Chronic) History of hypokalemia (Chronic) Obstructive sleep apnea (Chronic) CHF (congestive heart failure) (Chronic) CKD (chronic kidney disease) stage 3, GFR 30-59 ml/min Complete below knee amputation of left lower extremity Abdominal hernia Family history non-contributory Hip fracture Family History Other Family history non-contributory Social History Preferred Language: Ecuadorean Communication Ability: confused It Portfolio Manager Required: No Beliefs That Will Affect Care: None marital status: Current Living Situation: [facility] Current Living Situation Comment: [facility] Feels Safe at Home: Yes Smoking Status: Former smoker Hx Alcohol Use: No Hx Substance Use: No Review of Systems Review of Systems: All systems reviewed & are unremarkable except as noted in HPI & below Physical Exam Constitutional: WD/WN, vitals as above + ill appearing; no acute distress Eyes: PERRL, conjunctivae normal, anicteric sclerae ENMT: Ears: no hearing impairment Mouth: + dry oral mucous membranes Neck: trachea midline Respiratory: normal respiratory effort, lungs clear to auscultation no cough Auscultation: + diminished lung sounds; no crackles, no rales and no wheezes Cardiovascular: Rate/Rhythm: regular rate and regular rhythm Heart Sounds: normal S1 and normal S2 Extremities: + edema (edema rt LE. left BKA stump with mild edema and erythema) Gastrointestinal (Abdomen): Inspection/Auscultation: normal bowel sounds and + abdominal edema Percussion/Palpation: abdomen nontender, no guarding and abdomen not rigid Musculoskeletal: Extremities: extremities normal to inspection Gait: normal gait Skin: no rashes, warm and dry Neurologic: moves all extremities and awake Psychiatric: A+Ox3, euthymic affect Results & Data Vital Signs (Past 12 Hours) Vital Signs Temp Pulse Pulse Resp BP BP Pulse Ox 06/22/19 14:07 37.4 C 88 86 17 100/68 98 06/22/19 13:20 100 H 19 100 06/22/19 13:10 89 20 99 06/22/19 13:01 91 H 22 99 06/22/19 13:00 89 19 125/67 99 06/22/19 12:51 92 H 20 129/75 100 06/22/19 12:50 85 21 129/75 99 06/22/19 12:40 110 H 20 93 06/22/19 12:30 107 H 22 99 06/22/19 12:20 101 H 19 99 06/22/19 12:10 104 H 20 99 06/22/19 12:00 93 H 19 98 06/22/19 11:50 89 21 97 06/22/19 11:40 98 H 20 98 06/22/19 11:30 100 H 21 99 06/22/19 11:20 94 H 22 97 06/22/19 11:10 27 H 95 06/22/19 11:00 106 H 25 H 98 06/22/19 10:55 93 H 24 96 06/22/19 10:50 99 H 21 96 06/22/19 10:45 109 H 20 108/73 96 06/22/19 10:42 116 H 23 108/73 97 06/22/19 10:41 24 96 PG Care Time/CCT Total # of Minutes Spent Total Time Spent with Patient: Total time spent is greater than 50% in coordination of care (as documented) at patient's floor/unit and/or counseling patient:
[2019-06-22] MEDS: LACTULOSE SYRUP 20 GM/30 ML UDC PO SCH ×2 (15:24→20:51)
[2019-06-22] MEDS ORDERED: INFLUENZA ADMINISTRATION CHARGE ONE (15:45)
[2019-06-22] MEDS ORDERED: INFLUENZA VACCINE HIGH DOSE 65+ 0.5 ML SYR IM ONE (15:45)
[2019-06-22] MEDS: cefTRIAXone SODIUM 2,000 MG in DEXTROSE 5% 50 ML IV SCH (15:51)
[2019-06-22] MEDS: HEPARIN SOD 5,000 UNIT/0.5 ML VIAL SQ SCH (15:51)
[2019-06-22] MEDS: HYDROCODONE/ACETAMINOPHEN 7.5/325MG TAB PO SCH ×2 (15:52→20:51)
[2019-06-22] MEDS: FUROSEMIDE 20 MG TAB PO SCH (15:52)
[2019-06-22] MEDS: SPIRONOLACTONE 25 MG TAB PO SCH (15:52)
--- NOTE | 2019-06-22 16:09 | Gastrointestinal Consultation ---
Date of Consultation June 22, 2019 Assessment & Plan (1) Encephalopathy, hepatic: (2) Cirrhosis: cirrhosis of unknown etiology, could be 2/2 CHF/cardiac vs. JIMENEZ vs. viral vs. other etiologies. Currently with overt hepatic encephalopathy. Recs: c/w lactulose 20g TID, titrate to achieve 2-3 soft bms daily c/w rifaximin 550 mg BID check blood cultures abdominal US without ascites on 06/21 start zinc sulfate 220 mg daily recommend checking hepatitis serologies no evidence of GI bleeding at this time rest of care as per primary team Thank you for allowing me to participate in the care of this patient History of Present Illness Attending Physician: Duke Graham MD 74 yo female with hx CHF, endocarditis, cirrhosis of unknown etiology here with dyspnea and confusion. GI consulted for hepatic encephalopathy. She was sent here from her detention. Patient does not recall how she got her cirrhosis/liver disease nor how long she has had it. She cannot tell me much more besides her name at this time, does not know her birthday, where she is, what year it is. currently on lactulose and had fecal soiling/incontinence in the ER. Labs reviewed, stable anemia and thrombocytopenia noted. mildly elevated INR, ammonia noted to be elevated as well. Imaging shows US with hepatomegaly VSS Allergies Allergy/AdvReac Type Severity Reaction Status Date / Time duloxetine AdvReac Mild DIZZINESS Verified 06/22/19 11:11 indigotindisulfonic acid AdvReac Unknown "spaced Verified 06/22/19 11:11 out" Home Medications Home Medications Medication Instructions Recorded Confirmed Type Oxygen Home #1 ea 05/29/19 06/21/19 History blood sugar diagnostic strips #10 ea 05/29/19 06/21/19 History fluticasone 250 mcg-salmeterol 50 1 puffs INHALATION BID #60 ea 05/29/19 06/22/19 History mcg/dose blistr powdr for inhalation furosemide 40 mg tablet 40 mg PO QAM #60 tab 05/29/19 06/22/19 History gabapentin 300 mg capsule 300 mg PO BID cap 05/29/19 06/22/19 History insulin human U-100 NPH-regulr 30 unit SUBCUT HS ml 05/29/19 06/22/19 History 70-30 mix 100 unit/mL subcutaneous susp insulin syringe U-100 with needle #10 ea 05/29/19 06/21/19 History 0.3 mL 30 gauge x 1/2" lactulose 20 gram/30 mL oral 20 gm PO DAILY PRN ml 05/29/19 06/22/19 History solution levothyroxine 200 mcg tablet 200 mcg PO QAM tab 05/29/19 06/22/19 History levothyroxine 50 mcg tablet 50 mcg PO QAM tab 05/29/19 06/22/19 History nitroglycerin 0.4 mg sublingual 0.4 mg SL Q5M PRN tab 05/29/19 06/22/19 History tablet pantoprazole 20 mg tablet,delayed 20 mg PO QAM #30 tab 05/29/19 06/22/19 History release ranitidine 150 mg capsule 150 mg PO QAM cap 05/29/19 06/22/19 History rifaximin 550 mg tablet 550 mg PO BID tab 05/29/19 06/22/19 History spironolactone 25 mg tablet 25 mg PO BIDM #180 tab 05/29/19 06/22/19 History tiotropium bromide 18 mcg capsule 1 cap INHALATION QAM #30 puffs 05/29/19 06/22/19 History with inhalation device ascorbic acid (vitamin C) [Vitamin 500 mg PO BID 06/22/19 06/22/19 History C] ceftriaxone 2 g IV DAILY@1300 06/22/19 06/22/19 History ferrous sulfate 325 mg PO BID 06/22/19 06/22/19 History furosemide 20 mg PO UD 06/22/19 06/22/19 History gabapentin 100 mg PO DAILY@1230 06/22/19 06/22/19 History heparin (porcine) 5,000 unit SUBCUT Q8H 06/22/19 06/22/19 History hydrocodone-acetaminophen 1 tab PO TID 06/22/19 06/22/19 History insulin NPH and regular human 35 unit SUBCUT QAM 06/22/19 06/22/19 History [Novolin 70/30 U-100 Insulin] methyl salicylate-menthol [Bengay 1 applic TOPICAL DAILY PRN 06/22/19 06/22/19 History Greaseless] metoprolol tartrate 25 mg PO BID 06/22/19 06/22/19 History multivitamin,va-dmpd-fegbcnyc 1 tab PO QAM 06/22/19 06/22/19 History [Therems-M] Patient History Medical History Hypothyroidism (Chronic) Ambulatory dysfunction (Chronic) History of anxiety (Chronic) History of hypokalemia (Chronic) Obstructive sleep apnea (Chronic) CHF (congestive heart failure) (Chronic) CKD (chronic kidney disease) stage 3, GFR 30-59 ml/min Complete below knee amputation of left lower extremity Abdominal hernia Family history non-contributory Hip fracture Family History Other Family history non-contributory Social History Preferred Language: Turkish Communication Ability: confused Clerk Of Scales Required: No Beliefs That Will Affect Care: None marital status: Current Living Situation: [facility] Current Living Situation Comment: [facility] Feels Safe at Home: Yes Smoking Status: Former smoker Hx Alcohol Use: No Hx Substance Use: No Review of Systems Review of Systems: Unobtainable due to cognitive status Physical Exam Constitutional: WD/WN, vitals as above Eyes: EOM intact bilaterally Neck: normal visual inspection Respiratory: normal respiratory effort, lungs clear to auscultation Cardiovascular: RRR, no murmur, no edema Gastrointestinal (Abdomen): Inspection/Auscultation: abdomen normal to inspection; abdomen not distended Percussion/Palpation: abdomen soft; abdomen nontender and no hepatosplenomegaly Musculoskeletal: Extremities: no cyanosis Gait: normal gait Skin: no rashes, warm and dry Neurologic: moves all extremities Psychiatric: Orientation: + not oriented x 3 (oriented to person only, noted to have asterixis and tremors on exam) Results & Data Vital Signs (Past 12 Hours) Vital Signs Temp Pulse Pulse Resp BP BP BP 06/22/19 15:13 37.2 C 84 16 118/80 06/22/19 14:07 37.4 C 88 86 17 100/68 06/22/19 13:20 100 H 19 06/22/19 13:10 89 20 06/22/19 13:01 91 H 22 06/22/19 13:00 89 19 125/67 06/22/19 12:51 92 H 20 129/75 06/22/19 12:50 85 21 129/75 06/22/19 12:40 110 H 20 06/22/19 12:30 107 H 22 06/22/19 12:20 101 H 19 06/22/19 12:10 104 H 20 06/22/19 12:00 93 H 19 06/22/19 11:50 89 21 06/22/19 11:40 98 H 20 06/22/19 11:30 100 H 21 06/22/19 11:20 94 H 22 06/22/19 11:10 27 H 06/22/19 11:00 106 H 25 H 06/22/19 10:55 93 H 24 06/22/19 10:50 99 H 21 06/22/19 10:45 109 H 20 108/73 06/22/19 10:42 116 H 23 108/73 06/22/19 10:41 24 Pulse Ox 06/22/19 15:13 98 06/22/19 14:07 98 06/22/19 13:20 100 06/22/19 13:10 99 06/22/19 13:01 99 06/22/19 13:00 99 06/22/19 12:51 100 06/22/19 12:50 99 06/22/19 12:40 93 06/22/19 12:30 99 06/22/19 12:20 99 06/22/19 12:10 99 06/22/19 12:00 98 06/22/19 11:50 97 06/22/19 11:40 98 06/22/19 11:30 99 06/22/19 11:20 97 06/22/19 11:10 95 06/22/19 11:00 98 06/22/19 10:55 96 06/22/19 10:50 96 06/22/19 10:45 96 06/22/19 10:42 97 06/22/19 10:41 96 PG Care Time/CCT Total # of Minutes Spent Total Time Spent with Patient: Total time spent is greater than 50% in coordination of care (as documented) at patient's floor/unit and/or counseling patient:
--- NOTE | 2019-06-22 16:44 | Pulmonary Consultation ---
Date of Consultation June 22, 2019 Assessment & Plan (1) Pleural effusion on right: Impression: 74-year-old female with history of cirrhosis admitted with hepatic encephalopathy/markedly elevated ammonia. She has a pleural effusion on the right which has been present dating back to 2017. She did have some hypoxemia. Recommendations: 1. Pleural effusion on right: This could represent a hepatic hydrothorax. Is not been sampled previously. Other etiologies would include congestive heart failure or fluid accumulation due to chronic kidney disease. As the fluid is been present dating back for over 2 years and is not significantly changed in size, I do not think it needs to be sampled urgently. Patient is not currently in a mental state to be able to provide informed consent for the procedure. We will hold off in hopes that her encephalopathy improves. Ideally would like an INR less than or equal to 1.5 to perform thoracentesis. If this indeed is found to be a hepatic hydrothorax, there is no indication for serial drainage or invasive procedures, management consist primarily of salt restriction and aggressive diuretics in the form of Lasix and Aldactone. 2. Sleep disordered breathing: Would continue nightly CPAP at the patient's home settings. 3. Hypoxemic respiratory failure: Secondary to fluid overload, compressive atelectasis, and restrictive lung disease related to body habitus. Wean oxygen as tolerated. The patient does not have hepatopulmonary syndrome as this is an entity related to formation of small pulmonary AVMs resulting in hypoxemia with a relatively normal chest x-ray. I believe the patient has alternative etiologies to explain her hypoxemia. Management of the patient's other medical conditions is deferred to the patient's primary service and other consultants. (2) Obstructive sleep apnea: (3) Hypoxemic respiratory failure, chronic: History of Present Illness Attending Physician: Duke Graham MD History of Present Illness Asked by hospitalist service to evaluate this patient for hepatopulmonary s yndrome/pleural effusion/hypoxemic respiratory failure. History is obtained from review the electronic medical record. The patient is obtunded due to hepatic encephalopathy and cannot provide a clearly reliable history. The patient is a 74-year-old morbidly obese female. She was seen in pulmonary consultation back in 2016 at which point time she had a pleural effusion there. Decision was made to not pursue thoracentesis due to the patient being anticoagulated on apixaban. Diuretics were recommended. She has a history of cirrhosis, possibly related to alcohol abuse although also likely a component of nonalcoholic steatohepatitis. The patient has a complicated medical history consisting of endocarditis for which she is on chronic antimicrobial therapy. 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 She is a resident of a [facility] facility. She was found with an altered level of consciousness today and hypoxemic with reported oxygen saturations in the mid to low 70% range which prompted evaluation in the emergency room. Chest x-ray was performed which revealed a moderate-sized right-sided pleural effusion which has been present on films dating back to 2017. She was also found to have a markedly elevated ammonia level and some mild degree of renal insufficiency. She was admitted to the hospitalist service and nephrology and GI consultations were obtained. Pulmonary was consulted for potential hepatopulmonary syndrome. Allergies Allergy/AdvReac Type Severity Reaction Status Date / Time duloxetine AdvReac Mild DIZZINESS Verified 06/22/19 11:11 indigotindisulfonic acid AdvReac Unknown "spaced Verified 06/22/19 11:11 out" Home Medications Home Medications Medication Instructions Recorded Confirmed Type Oxygen Home #1 ea 05/29/19 06/21/19 History blood sugar diagnostic strips #10 ea 05/29/19 06/21/19 History fluticasone 250 mcg-salmeterol 50 1 puffs INHALATION BID #60 ea 05/29/1906/08 History mcg/dose blistr powdr for inhalation furosemide 40 mg tablet 40 mg PO QAM #60 tab 05/29/19 06/22/19 History gabapentin 300 mg capsule 300 mg PO BID cap 05/29/19 06/22/19 History insulin human U-100 NPH-regulr 30 unit SUBCUT HS ml 05/29/19 06/22/19 History 70-30 mix 100 unit/mL subcutaneous susp insulin syringe U-100 with needle #10 ea 05/29/19 06/21/19 History 0.3 mL 30 gauge x 1/2" lactulose 20 gram/30 mL oral 20 gm PO DAILY PRN ml 05/29/19 06/22/19 History solution levothyroxine 200 mcg tablet 200 mcg PO QAM tab 05/29/19 06/22/19 History levothyroxine 50 mcg tablet 50 mcg PO QAM tab 05/29/19 06/22/19 History nitroglycerin 0.4 mg sublingual 0.4 mg SL Q5M PRN tab 05/29/19 06/22/19 History tablet pantoprazole 20 mg tablet,delayed 20 mg PO QAM #30 tab 05/29/19 06/22/19 History release ranitidine 150 mg capsule 150 mg PO QAM cap 05/29/19 06/22/19 History rifaximin 550 mg tablet 550 mg PO BID tab 05/29/19 06/22/19 History spironolactone 25 mg tablet 25 mg PO BIDM #180 tab 05/29/19 06/22/19 History tiotropium bromide 18 mcg capsule 1 cap INHALATION QAM #30 puffs 05/29/19 06/22/19 History with inhalation device ascorbic acid (vitamin C) [Vitamin 500 mg PO BID 06/22/19 06/22/19 History C] ceftriaxone 2 g IV DAILY@1300 06/22/19 06/22/19 History ferrous sulfate 325 mg PO BID 06/22/19 06/22/19 History furosemide 20 mg PO UD 06/22/19 06/22/19 History gabapentin 100 mg PO DAILY@1230 06/22/19 06/22/19 History heparin (porcine) 5,000 unit SUBCUT Q8H 06/22/19 06/22/19 History hydrocodone-acetaminophen 1 tab PO TID 06/22/19 06/22/19 History insulin NPH and regular human 35 unit SUBCUT QAM 06/22/19 06/22/19 History [Novolin 70/30 U-100 Insulin] methyl salicylate-menthol [Bengay 1 applic TOPICAL DAILY PRN 06/22/19 06/22/19 History Greaseless] metoprolol tartrate 25 mg PO BID 06/22/19 06/22/19 History multivitamin,ez-hvol-ckufkjwo 1 tab PO QAM 06/22/19 06/22/19 History [Therems-M] Patient History Medical History Hypothyroidism (Chronic) Ambulatory dysfunction (Chronic) History of anxiety (Chronic) History of hypokalemia (Chronic) Obstructive sleep apnea (Chronic) CHF (congestive heart failure) (Chronic) CKD (chronic kidney disease) stage 3, GFR 30-59 ml/min Complete below knee amputation of left lower extremity Abdominal hernia Family history non-contributory Hip fracture Family History Other Family history non-contributory Social History Preferred Language: Tristanian Communication Ability: confused Pleating Supervisor Required: No Beliefs That Will Affect Care: None marital status: Current Living Situation: Snf Current Living Situation Comment: [facility] Feels Safe at Home: Yes Smoking Status: Former smoker Hx Alcohol Use: No Hx Substance Use: No Review of Systems Review of Systems: Unobtainable due to reduced consciousness Physical Exam Constitutional: + morbidly obese and + lethargic Patient is morbidly obese. This limits the sensitivity of physical exam. She is obtunded. She does respond to verbal and tactile stimulus but quickly falls back asleep. Neck: Unable to assess due to body habitus Respiratory: Diminished breath sounds at the right lung base. No wheezing Cardiovascular: Heart Sounds: normal S1 Extremities: + edema Gastrointestinal (Abdomen): Exam limited to morbid obesity Skin: Erythema of the remaining right lower extremity with some clear blister formation and indurated skin. Neurologic: Somnolent Results & Data Vital Signs (Past 12 Hours) Vital Signs Temp Pulse Pulse Resp BP BP BP 06/22/19 15:13 37.2 C 84 16 118/80 06/22/19 14:07 37.4 C 88 86 17 100/68 06/22/19 13:20 100 H 19 06/22/19 13:10 89 20 06/22/19 13:01 91 H 22 06/22/19 13:00 89 19 125/67 06/22/19 12:51 92 H 20 129/75 06/22/19 12:50 85 21 129/75 06/22/19 12:40 110 H 20 06/22/19 12:30 107 H 22 06/22/19 12:20 101 H 19 06/22/19 12:10 104 H 20 06/22/19 12:00 93 H 19 06/22/19 11:50 89 21 06/22/19 11:40 98 H 20 06/22/19 11:30 100 H 21 06/22/19 11:20 94 H 22 06/22/19 11:10 27 H 06/22/19 11:00 106 H 25 H 06/22/19 10:55 93 H 24 06/22/19 10:50 99 H 21 06/22/19 10:45 109 H 20 108/73 06/22/19 10:42 116 H 23 108/73 06/22/19 10:41 24 Pulse Ox 06/22/19 15:13 98 06/22/19 14:07 98 06/22/19 13:20 100 06/22/19 13:10 99 06/22/19 13:01 99 06/22/19 13:00 99 06/22/19 12:51 100 06/22/19 12:50 99 06/22/19 12:40 93 06/22/19 12:30 99 06/22/19 12:20 99 06/22/19 12:10 99 06/22/19 12:00 98 06/22/19 11:50 97 06/22/19 11:40 98 06/22/19 11:30 99 06/22/19 11:20 97 06/22/19 11:10 95 06/22/19 11:00 98 06/22/19 10:55 96 06/22/19 10:50 96 06/22/19 10:45 96 06/22/19 10:42 97 06/22/19 10:41 96 Laboratory Results 06/22/19 11:10 06/22/19 11:10 06/22/19 11:15 VBG pH 7.28 L VBG pCO2 57 H VBG pO2 43 VBG HCO3 26 VBG O2 Saturation 74.1 VBG Base Excess -1.4 Diagnostic Findings Chest x-ray from today independently reviewed. Moderate-sized right pleural effusion is noted. CT of the chest from 2017 was reviewed. The patient had the right pleural effusion back then as well as a small left pleural effusion. Atelectatic changes in the lung bases were noted. PG Care Time/CCT Total # of Minutes Spent Total Time Spent with Patient: Total time spent is greater than 50% in coordination of care (as documented) at patient's floor/unit and/or counseling patient:
[2019-06-22] MEDS: NYSTATIN POWDER 15GM BTL EXT SCH ×2 (17:57→20:51)
[2019-06-22] MEDS: FLUTICASONE/SALMETEROL 250/50 (ADVAIR) 14 PUFF/1 INHALER INH SCH (20:50)
[2019-06-22] MEDS: RIFAXIMIN 550 MG TABLET PO SCH (20:51)
[2019-06-22] MEDS: METOPROLOL TARTRATE 25 MG TAB PO SCH (20:52)
[2019-06-22] MEDS ORDERED: GABAPENTIN 300 MG CAP PO SCH (21:00)
[2019-06-23] MEDS: HEPARIN SOD 5,000 UNIT/0.5 ML VIAL SQ SCH ×3 (00:35→15:46)
[2019-06-23] MEDS: LEVOTHYROXINE SODIUM 50 MCG TABLET PO SCH (05:46)
[2019-06-23] MEDS: LEVOTHYROXINE SODIUM 200 MCG TABLET PO SCH (05:46)
[2019-06-23 07:01] LABS: Albumin Level 2.8 gm/dl (3.4-5.0); Calcium 8.3 mg/dl (8.5-10.1); Creatinine Clr Calc Pharmacy 24.4 ml/min; Est GFR (African American) 21.7; Est GFR (Non-African American) 18.7
[2019-06-23 07:12] LABS: Phosphorus 5.6 mg/dl (2.5-4.9); Troponin I 1.28 ng/ml (0-0.045)
--- NOTE | 2019-06-23 08:03 | Family Medicine Progress Note ---
Date of Service June 23, 2019 Assessment & Plan (1) Encephalopathy, hepatic: #Encephalopathy, hepatic: Per patient's family there is concern she has not been receiving her outpatient lactulose at [facility] they are concerned this led to her current presentation. Her shortness of breath is likely secondary to hyper ammonia, admission ammonia levels were 104. -Gastroenterology was consulted -Continue lactulose 20 g 3 times daily titrate to achieve to 3 soft BMs daily -Continue with rifaximin 550 mg twice daily -Start zinc sulfate 220 mg daily -Abdominal ultrasound on June 21 without ascites -Follow-up blood cultures -Hepatitis A positive serologies otherwise negative -No evidence of GI bleed #Cirrhosis: Of unknown etiology differentials include secondary to CHF versus nonalcoholic steatohepatitis versus viral versus other etiologies -Management as above #Acute on chronic kidney disease Patient has a long history of chronic kidney disease stage IV, baseline creatinine 1.6-1.7. Likely secondary to microvascular disease from hypertension, diabetes and obesity versus hepatorenal syndrome type II versus chronic intravascular volume depletion with high-dose diuretics. -Consulted nephrology following recommendations -Hold diuretics for now, DC spironolactone -Monitor daily electrolyte panel, if renal function worsens consider midodrine and octreotide -Hold gabapentin 300 mg twice daily, only 100 mg at bedtime -Encourage p.o. intake, if inadequate will need IV fluids -Dose medication for GFR less than 30 #CKD (chronic kidney disease), stage IV: Management as described above. #Pleural effusion on right: Patient has history of pleural effusion previously identified in 2017, this is been stable since then. Admitting physician was concern for hepatopulmonary syndrome, however given no AVMs this is not likely. There was some consideration as to whether or not to perform thoracocentesis, however given the patient's current presentation, lack of symptomology, and persistence of pleural effusion it was elected to forego invasive evaluation at present. -Pulmonology consulted -Likely hepatic hydrothorax, no clear indication for serial drainage -Patient declines invasive procedures. -Should patient become symptomatically consider thoracocentesis -Continue CPAP -Hypoxemic respiratory failure secondary to fluid overload, compressive atelectasis, and restrictive lung disease related to body habitus. Wean O2 as tolerated -There is no hepatopulmonary syndrome #Infective endocarditis: Patient recently hospitalized in May and diagnosed with infective endocarditis, has been maintained on outpatient IV antibiotics. We will sandeep nue these while she is hospitalized. -Continue ceftriaxone 2 g daily #Non-ST elevation SD (NSTEMI): Patient presented with troponin elevation without significant ET EKG changes to indicate a active myocardial infarction. 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 -Consulted cardiology appreciate recommendations #Chronic diastolic heart failure: Long history of -Consulted cardiology -Despite elevated BNP appears to be well compensated at present. -When able resume diuretics FENa: Heart healthy diet Code Status: DNR/DNI DVT PPX: Heparin 5000 units every 8 PT/OT: Ordered Dispo: [facility] Miguel Rajan MD PGY 2, [facility] This chart was completed utilizing [employer] voice recognition software. Grammatical errors, random word insertions, pronoun errors, and in complete sentences are an occasional consequence of the system. Any questions or concerns about the content, text, or information contained within the body of this dictation should be addressed directly to the physician for clarification. Supervising Physician Co-Signing Physician Notes Patient seen and examined with Dr. Rajan. I agree with their exam findings, review of systems, assessment and plan. I have personally reviewed the lab work and imaging from today. Patient more alert than when she was admitted, eating well, oriented her was at the bedside, he said that the staff at [facility] was not giving patient her Lactulose he said that they do not want to change her and she has to move her bowels several times a day patient is eating, no issues breathing Exam: obese female, NAD, AAOx3, lungs CTA bilaterally, decreased BS in right base, heart regular, no murmurs abdomen soft, NT, +BS, extremities warm, edema in right leg, left side with AKA - Hepatic encephalopathy: likely due to poor compliance with Lactulose no fault of the patient as she gets her medications from nursing staff she NEEDS to take her medication so that she has 3 loose stools a day, low pr otein diet ammonia level coming down appropriately and patient is alert and oriented - AINSLEY on chronic kidney disease: improving with IV fluids likely all prerenal, continue on fluids - Infective endocarditis: continue on Ceftriaxone, no signs of sepsis, infection well controlled for rest of details see resident note anticipate patient returning to [facility] once medically stable Subjective Patient lying down in bed in no acute distress. Patient is intermittently oriented to person, place, time. Occasionally she will say outlandish comments this is likely secondary to her hepatic encephalopathy. Overnight her ammonia levels decrease secondary to lactulose administration. In conversation with the patient and her family, they report there is concern that lactulose is not being administered properly at [facility] and the patient is not being adequately taking care of. They reports she has been allowed to laying in her own feces for extended periods of time. Otherwise patient is tolerating her diet, voiding and stooling albeit grossly incontinent, and slept okay overnight. All questions answered. Physical Exam Physical Exam: General: Morbidly obese female lying in bed in no acute distress HEENT: Normocephalic atraumatic Neck: Unable to assess secondary to adiposity Cardiac: Irregularly irregular rhythm, I did not appreciate any significant murmurs, rubs, gallops, 4+ pedal edema bilaterally, unable to appreciate JVD, negative calf tenderness Respiratory: Bibasilar crackles, neurosensory greatest at right lung base, no wheezing. Symmetrical chest expansion. GI: Distended, nontender to palpation, bowel sounds present Neuro: AAO x2, oftentimes inappropriate responses to questions, thinks her pulse ox is a laser Results & Data Vital Signs (Past 12 Hours) Vital Signs Temp Pulse Pulse Resp BP BP Pulse Ox 06/23/19 07:37 36.7 C 90 22 117/63 100 06/23/19 03:51 37.0 C 79 19 138/77 98 06/23/19 01:21 72 06/23/19 00:11 37.0 C 75 19 104/80 99 Laboratory Results 06/23/19 06/23/19 06/22/19 Range/Units 07:23 06:14 Unknown WBC (4.8-10.8) K/uL RBC (4.2-5.4) M/uL Hgb (12.0-16.0) g/dL Hct (37-47) % MCV (80-100) fL MCH (25-34) pg MCHC (32-36) g/dL RDW Std Deviation (36.4-46.3) fL RDW Coeff of Earl (11.5-14.5) % Plt Count (130-400) K/uL MPV (7.4-10.4) fL Immature Gran % (Auto) % Neut % (Auto) % Lymph % (Auto) % [place] % (Auto) % Eos % (Auto) % Baso % (Auto) % Immature Gran # (Auto) (0.00-0.02) K/uL Neut # (Auto) (1.4-6.5) K/uL Lymph # (Auto) (1.2-3.4) K/uL [place] # (Auto) (0.11-0.59) K/uL Eos # (Auto) (0-0.5) K/uL Baso # (Auto) (0-0.2) K/uL PT (9.0-12.0) Seconds INR (0.9-1.1) APTT (21.0-31.0) Seconds PTT Ratio VBG pH (7.36-7.41) VBG pCO2 (38-50) mmHg VBG pO2 mmHg VBG HCO3 mmol/L VBG O2 Saturation % VBG Base Excess mEq/L Barometric Pressure mm/Hg Sodium 141 (136-145) mmol/L Potassium 5.0 (3.5-5.1) mmol/L Chloride 107 (98-107) mmol/L Carbon Dioxide 27 (21-32) mmol/L Anion Gap 7.0 (3-11) BUN 66 H (7-18) mg/dl Creatinine 2.44 H (0.6-1.2) mg/dl Est Cr Clr Drug Dosing 24.4 ml/min Est GFR ( Amer) 21.7 Est GFR (Non-Af Amer) 18.7 BUN/Creatinine Ratio 27.0 H (10-20) Glucose 84 (70-99) mg/dl Lactate (0.4-2.0) mmol/L Calcium 8.3 L (8.5-10.1) mg/dl Phosphorus 5.6 H (2.5-4.9) mg/dl Magnesium (1.8-2.4) mg/dl Total Bilirubin (0.2-1) mg/dl AST (15-37) U/L ALT (12-78) U/L Alkaline Phosphatase (45-117) U/L Ammonia 48.8 H (11-32) umol/L Troponin I 1.280 H* (0-0.045) ng/ml NT-Pro-B Natriuret Pep (0-900) pg/ml Total Protein (6.4-8.2) gm/dl Albumin 2.8 L (3.4-5.0) gm/dl Globulin (2.5-4.0) gm/dl Albumin/Globulin Ratio (0.9-2) Urine Color Urine Appearance (Clear) Urine pH (4.5-7.5) Ur Specific [place] (1.000-1.030) Urine Protein (Negative) Urine Glucose (UA) (Negative) Urine Ketones (Negative) Urine Blood (Negative) Urine Nitrite (Negative) Urine Bilirubin (Negative) Urine Urobilinogen (Negative) Ur Leukocyte Esterase (Negative) Urine WBC (Auto) (0-5) /hpf Urine RBC (Auto) (0-4) /hpf U Hyaline Cast (Auto) (0-5) /lpf U Epithel Cells (Auto) (0-5) /lpf Urine Bacteria (Auto) (Negative) Ur Renal Epithelial Cell (0-5) /lpf Granular Casts (0) /lpf Nasal Screen MRSA (PCR) Negative (Negative) 06/22/19 06/22/19 06/22/19 Range/Units Unknown 11:15 11:10 WBC (4.8-10.8) K/uL RBC (4.2-5.4) M/uL Hgb (12.0-16.0) g/dL Hct (37-47) % MCV (80-100) fL MCH (25-34) pg MCHC (32-36) g/dL RDW Std Deviation (36.4-46.3) fL RDW Coeff of Earl (11.5-14.5) % Plt Count (130-400) K/uL MPV (7.4-10.4) fL Immature Gran % (Auto) % Neut % (Auto) % Lymph % (Auto) % [place] % (Auto) % Eos % (Auto) % Baso % (Auto) % Immature Gran # (Auto) (0.00-0.02) K/uL Neut # (Auto) (1.4-6.5) K/uL Lymph # (Auto) (1.2-3.4) K/uL [place] # (Auto) (0.11-0.59) K/uL Eos # (Auto) (0-0.5) K/uL Baso # (Auto) (0-0.2) K/uL PT (9.0-12.0) Seconds INR (0.9-1.1) APTT (21.0-31.0) Seconds PTT Ratio VBG pH 7.28 L (7.36-7.41) VBG pCO2 57 H (38-50) mmHg VBG pO2 43 mmHg VBG HCO3 26 mmol/L VBG O2 Saturation 74.1 % VBG Base Excess -1.4 mEq/L Barometric Pressure 735.8 mm/Hg Sodium (136-145) mmol/L Potassium (3.5-5.1) mmol/L Chloride (98-107) mmol/L Carbon Dioxide (21-32) mmol/L Anion Gap (3-11) BUN (7-18) mg/dl Creatinine (0.6-1.2) mg/dl Est Cr Clr Drug Dosing ml/min Est GFR ( Amer) Est GFR (Non-Af Amer) BUN/Creatinine Ratio (10-20) Glucose (70-99) mg/dl Lactate 1.8 (0.4-2.0) mmol/L Calcium (8.5-10.1) mg/dl Phosphorus (2.5-4.9) mg/dl Magnesium (1.8-2.4) mg/dl Total Bilirubin (0.2-1) mg/dl AST (15-37) U/L ALT (12-78) U/L Alkaline Phosphatase (45-117) U/L Ammonia (11-32) umol/L Troponin I (0-0.045) ng/ml NT-Pro-B Natriuret Pep (0-900) pg/ml Total Protein (6.4-8.2) gm/dl Albumin (3.4-5.0) gm/dl Globulin (2.5-4.0) gm/dl Albumin/Globulin Ratio (0.9-2) Urine Color Dark Yellow Urine Appearance Clear (Clear) Urine pH 5.0 (4.5-7.5) Ur Specific [place] 1.018 (1.000-1.030) Urine Protein Trace H (Negative) Urine Glucose (UA) Negative (Negative) Urine Ketones Negative (Negative) Urine Blood Negative (Negative) Urine Nitrite Negative (Negative) Urine Bilirubin Negative (Negative) Urine Urobilinogen Negative (Negative) Ur Leukocyte Esterase Trace H (Negative) Urine WBC (Auto) 1-5 (0-5) /hpf Urine RBC (Auto) 5-10 H (0-4) /hpf U Hyaline Cast (Auto) 10-30 H (0-5) /lpf U Epithel Cells (Auto) >30 H (0-5) /lpf Urine Bacteria (Auto) Negative (Negative) Ur Renal Epithelial Cell 5-10 H (0-5) /lpf Granular Casts 1-5 H (0) /lpf Nasal Screen MRSA (PCR) (Negative) 06/22/19 06/22/19 06/22/19 Range/Units 11:10 11:10 11:10 WBC (4.8-10.8) K/uL RBC (4.2-5.4) M/uL Hgb (12.0-16.0) g/dL Hct (37-47) % MCV (80-100) fL MCH (25-34) pg MCHC (32-36) g/dL RDW Std Deviation (36.4-46.3) fL RDW Coeff of Earl (11.5-14.5) % Plt Count (130-400) K/uL MPV (7.4-10.4) fL Immature Gran % (Auto) % Neut % (Auto) % Lymph % (Auto) % [place] % (Auto) % Eos % (Auto) % Baso % (Auto) % Immature Gran # (Auto) (0.00-0.02) K/uL Neut # (Auto) (1.4-6.5) K/uL Lymph # (Auto) (1.2-3.4) K/uL [place] # (Auto) (0.11-0.59) K/uL Eos # (Auto) (0-0.5) K/uL Baso # (Auto) (0-0.2) K/uL PT 14.1 H (9.0-12.0) Seconds INR 1.4 H (0.9-1.1) APTT 33.9 H (21.0-31.0) Seconds PTT Ratio 1.3 VBG pH (7.36-7.41) VBG pCO2 (38-50) mmHg VBG pO2 mmHg VBG HCO3 mmol/L VBG O2 Saturation % VBG Base Excess mEq/L Barometric Pressure mm/Hg Sodium 141 (136-145) mmol/L Potassium 5.5 H (3.5-5.1) mmol/L Chloride 107 (98-107) mmol/L Carbon Dioxide 27 (21-32) mmol/L Anion Gap 7.0 (3-11) BUN 62 H (7-18) mg/dl Creatinine 2.45 H (0.6-1.2) mg/dl Est Cr Clr Drug Dosing 24.2 ml/min Est GFR ( Amer) 21.6 Est GFR (Non-Af Amer) 18.6 BUN/Creatinine Ratio 25.4 H (10-20) Glucose 91 (70-99) mg/dl Lactate (0.4-2.0) mmol/L Calcium 8.3 L (8.5-10.1) mg/dl Phosphorus (2.5-4.9) mg/dl Magnesium 2.9 H (1.8-2.4) mg/dl Total Bilirubin 0.5 (0.2-1) mg/dl AST 176 H (15-37) U/L ALT 147 H (12-78) U/L Alkaline Phosphatase 96 (45-117) U/L Ammonia 104.0 H (11-32) umol/L Troponin I 0.480 H* (0-0.045) ng/ml NT-Pro-B Natriuret Pep 18430 H (0-900) pg/ml Total Protein 6.2 L (6.4-8.2) gm/dl Albumin 2.9 L (3.4-5.0) gm/dl Globulin 3.3 (2.5-4.0) gm/dl Albumin/Globulin Ratio 0.9 (0.9-2) Urine Color Urine Appearance (Clear) Urine pH (4.5-7.5) Ur Specific [place] (1.000-1.030) Urine Protein (Negative) Urine Glucose (UA) (Negative) Urine Ketones (Negative) Urine Blood (Negative) Urine Nitrite (Negative) Urine Bilirubin (Negative) Urine Urobilinogen (Negative) Ur Leukocyte Esterase (Negative) Urine WBC (Auto) (0-5) /hpf Urine RBC (Auto) (0-4) /hpf U Hyaline Cast (Auto) (0-5) /lpf U Epithel Cells (Auto) (0-5) /lpf Urine Bacteria (Auto) (Negative) Ur Renal Epithelial Cell (0-5) /lpf Granular Casts (0) /lpf Nasal Screen MRSA (PCR) (Negative) 06/22/19 Range/Units 11:10 WBC 8.86 (4.8-10.8) K/uL RBC 3.05 L (4.2-5.4) M/uL Hgb 9.7 L (12.0-16.0) g/dL Hct 30.9 L (37-47) % MCV 101.3 H (80-100) fL MCH 31.8 (25-34) pg MCHC 31.4 L (32-36) g/dL RDW Std Deviation 62.3 H (36.4-46.3) fL RDW Coeff of Earl 16.8 H (11.5-14.5) % Plt Count 114 L (130-400) K/uL MPV 9.4 (7.4-10.4) fL Immature Gran % (Auto) 0.5 % Neut % (Auto) 82.2 % Lymph % (Auto) 7.4 % [place] % (Auto) 8.5 % Eos % (Auto) 1.1 % Baso % (Auto) 0.3 % Immature Gran # (Auto) 0.04 H (0.00-0.02) K/uL Neut # (Auto) 7.28 H (1.4-6.5) K/uL Lymph # (Auto) 0.66 L (1.2-3.4) K/uL [place] # (Auto) 0.75 H (0.11-0.59) K/uL Eos # (Auto) 0.10 (0-0.5) K/uL Baso # (Auto) 0.03 (0-0.2) K/uL PT (9.0-12.0) Seconds INR (0.9-1.1) APTT (21.0-31.0) Seconds PTT Ratio VBG pH (7.36-7.41) VBG pCO2 (38-50) mmHg VBG pO2 mmHg VBG HCO3 mmol/L VBG O2 Saturation % VBG Base Excess mEq/L Barometric Pressure mm/Hg Sodium (136-145) mmol/L Potassium (3.5-5.1) mmol/L Chloride (98-107) mmol/L Carbon Dioxide (21-32) mmol/L Anion Gap (3-11) BUN (7-18) mg/dl Creatinine (0.6-1.2) mg/dl Est Cr Clr Drug Dosing ml/min Est GFR ( Amer) Est GFR (Non-Af Amer) BUN/Creatinine Ratio (10-20) Glucose (70-99) mg/dl Lactate (0.4-2.0) mmol/L Calcium (8.5-10.1) mg/dl Phosphorus (2.5-4.9) mg/dl Magnesium (1.8-2.4) mg/dl Total Bilirubin (0.2-1) mg/dl AST (15-37) U/L ALT (12-78) U/L Alkaline Phosphatase (45-117) U/L Ammonia (11-32) umol/L Troponin I (0-0.045) ng/ml NT-Pro-B Natriuret Pep (0-900) pg/ml Total Protein (6.4-8.2) gm/dl Albumin (3.4-5.0) gm/dl Globulin (2.5-4.0) gm/dl Albumin/Globulin Ratio (0.9-2) Urine Color Urine Appearance (Clear) Urine pH (4.5-7.5) Ur Specific [place] (1.000-1.030) Urine Protein (Negative) Urine Glucose (UA) (Negative) Urine Ketones (Negative) Urine Blood (Negative) Urine Nitrite (Negative) Urine Bilirubin (Negative) Urine Urobilinogen (Negative) Ur Leukocyte Esterase (Negative) Urine WBC (Auto) (0-5) /hpf Urine RBC (Auto) (0-4) /hpf U Hyaline Cast (Auto) (0-5) /lpf U Epithel Cells (Auto) (0-5) /lpf Urine Bacteria (Auto) (Negative) Ur Renal Epithelial Cell (0-5) /lpf Granular Casts (0) /lpf Nasal Screen MRSA (PCR) (Negative) Medications Administered Current Inpatient Medications Hydrocodone Bitart/Acetaminophen (Talpa 7.5/325mg) 1 tab PO TID [facility] Stop: 07/06/19 14:59 Last Admin: 06/22/19 20:51 Dose: 1 tab Documented by: Furosemide (Lasix) 20 mg PO QAM [facility] Stop: 07/22/19 14:59 Last Admin: 06/22/19 15:52 Dose: 20 mg Documented by: Gabapentin (Neurontin) 100 mg PO DAILY@1230 [facility] Stop: 07/23/19 12:29 Gabapentin (Neurontin) 300 mg PO BID [facility] Stop: 07/22/19 20:59 Last Admin: 06/22/19 20:52 Dose: 300 mg Documented by: Heparin Sodium (Porcine) (Heparin Sodium (Porcine)) 5,000 units SQ Q8H [facility] Stop: 07/22/19 15:59 Last Admin: 06/23/19 00:35 Dose: 5,000 units Documented by: Ceftriaxone Sodium 2,000 mg/ (Dextrose) 70 mls @ 140 mls/hr IV DAILY@1530 [facility] Stop: 08/03/19 15:29 Last Infusion: 06/22/19 16:25 Dose: Infused Documented by: Lactulose (Chronulac) 20 gm PO TID [facility] Stop: 07/22/19 14:59 Last Admin: 06/22/19 20:51 Dose: 20 gm Documented by: Levothyroxine Sodium (Synthroid) 50 mcg PO DAILYBB [facility] Stop: 07/23/19 06:29 Last Admin: 06/23/19 05:46 Dose: 50 mcg Documented by: Levothyroxine Sodium (Synthroid) 200 mcg PO DAILYBB [facility] Stop: 07/23/19 06:29 Last Admin: 06/23/19 05:46 Dose: 200 mcg Documented by: Metoprolol Tartrate (Lopressor) 25 mg PO BID [facility] Stop: 07/22/19 20:59 Last Admin: 06/22/19 20:52 Dose: 25 mg Documented by: Morphine Sulfate (Morphine Sulfate) 2 mg IV Q30M PRN PRN Reason: Chest Pain Stop: 07/06/19 14:06 Multivitamins/Minerals (Multivitamin W/ Minerals Tab) 1 tab PO QAM [facility] Stop: 07/23/19 08:59 Nitroglycerin (Nitrostat) 0.4 mg SL Q5M PRN PRN Reason: chest pain Stop: 07/22/19 14:06 Nystatin (Mycostatin) 1 appln EXT BID [facility] Stop: 07/22/19 14:59 Last Admin: 06/22/19 20:51 Dose: 1 appln Documented by: Ondansetron HCl (Zofran) 4 mg IV Q6H PRN PRN Reason: Nausea Stop: 07/22/19 14:06 Pantoprazole Sodium (Protonix) 40 mg PO QAM [facility] Stop: 07/23/19 08:59 Rifaximin (Xifaxan) 550 mg PO BID [facility] Stop: 07/22/19 20:59 Last Admin: 06/22/19 20:51 Dose: 550 mg Documented by: Fluticasone/Salmeterol (Advair Diskus 250/50) 1 puffs INH BID [facility] Stop: 07/22/19 20:59 Last Admin: 06/22/19 20:50 Dose: 1 puffs Documented by: Spironolactone (Aldactone) 25 mg PO BIDM [facility] Stop: 07/22/19 16:59 Last Admin: 06/22/19 15:52 Dose: 25 mg Documented by: Tiotropium [place] (Spiriva) 1 puffs INH QAM [facility] Stop: 07/23/19 08:59 Zinc Sulfate (Zinc Sulfate) 220 mg PO QAM [facility] Stop: 07/23/19 08:59 PG Care Time/CCT Total # of Minutes Spent Total Time Spent with Patient: Total time spent is greater than 50% in coordination of care (as documented) at patient's floor/unit and/or counseling patient: Resident Activity Tracking Resident Involvement: Resident Care Provided Care Provided: Adult Hospital Medicine
[2019-06-23] MEDS: LACTULOSE SYRUP 20 GM/30 ML UDC PO SCH ×3 (08:51→20:17)
[2019-06-23] MEDS: FLUTICASONE/SALMETEROL 250/50 (ADVAIR) 14 PUFF/1 INHALER INH SCH ×2 (08:51→20:18)
[2019-06-23] MEDS: METOPROLOL TARTRATE 25 MG TAB PO SCH ×2 (08:52→20:19)
[2019-06-23] MEDS: CEROVITE ADV FORMULA TAB PO SCH (08:53)
[2019-06-23] MEDS: PANTOprazole 40 MG TAB PO SCH (08:53)
[2019-06-23] MEDS: FUROSEMIDE 20 MG TAB PO SCH (08:54)
[2019-06-23] MEDS: NYSTATIN POWDER 15GM BTL EXT SCH ×2 (08:54→20:17)
[2019-06-23] MEDS: TIOTROPIUM BROMIDE 5 PUFF/90 MCG INH INH SCH (08:55)
[2019-06-23] MEDS: ZINC SULFATE 220 MG CAPSULE PO SCH (08:56)
[2019-06-23] MEDS: RIFAXIMIN 550 MG TABLET PO SCH ×2 (08:56→20:17)
[2019-06-23] MEDS: HYDROCODONE/ACETAMINOPHEN 7.5/325MG TAB PO SCH ×3 (08:58→20:24)
--- NOTE | 2019-06-23 09:37 | Gastroenterology Progress Note ---
Date of Service June 23, 2019 Assessment & Plan (1) Encephalopathy, hepatic: (2) Cirrhosis: 1. Continue Lactulose 20g TID to maintain ~3 bms daily. 2. Continue Xifaxan 550 mg BID. 3. Continue supportive care. Supervising Physician Co-Signing Physician Notes Agree with ADELE Ochoa Abd: Soft, NT, ND Sitting up in bed eating, no complaints, A+Ox3 Continue current therapy Subjective Patient reports some fatigue. Patient is alert to person and place. Unable to recall day of the week or the president. Ammonia level has come down to 48 from 104 yesterday. Continues lactulose and Xifaxan. Blood cultures neg. Acute hep panel negative. Has been seen by pulmonology for chronic right pleural effusion. No plan for urgent thoracentesis. Review of Systems Constitutional: as per Subjective / HPI Respiratory: + dyspnea Cardiovascular: no chest pain and no palpitations Gastrointestinal: no abdominal pain, no nausea, no vomiting and no blood in stools Musculoskeletal: + swelling Integumentary: + non-healing lesions Physical Exam Constitutional: WD/WN, vitals as above Respiratory: Auscultation: + diminished lung sounds Cardiovascular: Rate/Rhythm: regular rate and regular rhythm Gastrointestinal (Abdomen): Inspection/Auscultation: normal bowel sounds Percussion/Palpation: abdomen soft; abdomen nontender periumbilical hernia Musculoskeletal: left BKA. RLE with erythema and edema and open lesions. Results & Data Vital Signs (Past 12 Hours) Vital Signs Temp Pulse Pulse Resp BP BP Pulse Ox 06/23/19 07:37 36.7 C 90 22 117/63 100 06/23/19 03:51 37.0 C 79 19 138/77 98 06/23/19 01:21 72 06/23/19 00:11 37.0 C 75 19 104/80 99 PG Care Time/CCT Total # of Minutes Spent Total Time Spent with Patient: Total time spent is greater than 50% in coor dination of care (as documented) at patient's floor/unit and/or counseling patient:
--- NOTE | 2019-06-23 10:28 | Pulmonology Progress Note ---
Date of Service June 23, 2019 Assessment & Plan (1) Pleural effusion on right: Impression: 74-year-old female with history of cirrhosis admitted with hepatic encephalopathy/markedly elevated ammonia. She has a pleural effusion on the right which has been present dating back to 2017. She did have some hypoxemia. Recommendations: 1. Pleural effusion on right: This could represent a hepatic hydrothorax. Has not been sampled previously. Other etiologies would include congestive heart failure or fluid accumulation due to chronic kidney disease. As the fluid is been present dating back for over 2 years and is not significantly changed in size, I do not think it needs to be sampled urgently. The patient declines invasive procedures including thoracentesis currently. If this indeed is found to be a hepatic hydrothorax, there is no indication for serial drainage or invasive procedures, management consist primarily of salt restriction and aggressive diuretics in the form of Lasix and Aldactone. As this has been present for such a long period of time and the patient declines procedures, pulmonary will sign off at this point in time. Feel free to contact us if the patient develops additional pulmonary issues or if she changes her mind and wishes to undergo therapeutic/diagnostic thoracentesis 2. Sleep disordered breathing: Would continue nightly CPAP at the patient's home settings. 3. Hypoxemic respiratory failure: Secondary to fluid overload, compressive atelectasis, and restrictive lung disease related to body habitus. Wean oxygen as tolerated. The patient does not have hepatopulmonary syndrome as this is an entity related to formation of small pulmonary AVMs resulting in hypoxemia with a relatively normal chest x-ray. I believe the patient has alternative etiologies to explain her hypoxemia. Management of the patient's other medical conditions is deferred to the patient's primary service and other consultants. (2) Obstructive sleep apnea: (3) Hypoxemic respiratory failure, chronic: Subjective Patient seen and examined. Electronic medical record reviewed. Discussed with resident at the bedside. The patient is much more awake alert and interactive this morning. She denies any shortness of breath or chest tightness or chest discomfort. She states she is not interested in pursuing thoracentesis or invasive procedures at this point in time. No cough or sputum production. She denies abdominal pain. Review of Systems Review of Systems: Unchanged from prior Physical Exam Constitutional: + morbidly obese and + lethargic Respiratory: Breath sounds decreased at the right lung base. Few basilar crackles. No wheezing Cardiovascular: Heart Sounds: normal S1 Extremities: + edema Musculoskeletal: Post amputation Results & Data Vital Signs (Past 12 Hours) Vital Signs Temp Pulse Pulse Resp BP BP Pulse Ox 06/23/19 07:37 36.7 C 90 22 117/63 100 06/23/19 03:51 37.0 C 79 19 138/77 98 06/23/19 01:21 72 06/23/19 00:11 37.0 C 75 19 104/80 99 Laboratory Results 06/22/19 11:10 06/23/19 06:14 Diagnostic Findings No new films PG Care Time/CCT Total # of Minutes Spent Total Time Spent with Patient: Total time spent is greater than 50% in coordination of care (as documented) at patient's floor/unit and/or counseling patient:
--- NOTE | 2019-06-23 10:33 | Nephrology Progress Note ---
Date of Service June 23, 2019 Assessment & Plan (1) AINSLEY (acute kidney injury): Valery Gloria is a 74-year-old female with past medical history significant for stage 4 chronic kidney disease baseline creatinine around 1.6- 1.7 and eGFR around 35. Chronic kidney disease most likely secondary to microvascular disease with history of hypertension, diabetes and obesity versus hepatorenal syndrome type 2 versus chronic intravascular volume depletion with high dose diuretics. Prior urinalysis showed only trace proteinuria. Admitted with progressive shortness of breath, change in mental status. On admission she was found to have right-sided large pleural effusion, acute kidney injury and hyperkalemia. Ammonia level was elevated at 104 Acute kidney injury most hemodynamically mediated vs hepatorenal syndrome. Clinically seems volume depleted. Renal function remained stable, hyperkalemia resolved. She continues to have significant lower extremity edema however seems intravascularly volume depleted. --considering hyperkalemia, acute kidney injury, discontinue spironolactone, h old Lasix for now. Encourage po intake, may need IV fluid if po intake is not adequate --monitor renal function electrolyte closely --hold gabapentin 300 b.i.d. and just continue 100 mg hs --dose medications for GFR less than 30 Will follow (2) Encephalopathy, hepatic: (3) Anemia: (4) CKD (chronic kidney disease), stage IV: (5) Acute UTI: Review of Systems Review of Systems: All systems reviewed & are unremarkable except as noted in HPI & below Physical Exam Constitutional: + ill appearing; no acute distress Respiratory: normal respiratory effort; no respiratory distress Auscultation: + diminished lung sounds Cardiovascular: Rate/Rhythm: regular rate and regular rhythm Heart Sounds: normal S1 and normal S2 Extremities: + edema Gastrointestinal (Abdomen): Inspection/Auscultation: normal bowel sounds Percussion/Palpation: abdomen soft; abdomen nontender, no guarding and abdomen not rigid Neurologic: moves all extremities and awake; not confused Psychiatric: A+Ox3, euthymic affect Results & Data Vital Signs (Past 12 Hours) Vital Signs Temp Pulse Pulse Resp BP BP Pulse Ox 06/23/19 07:37 36.7 C 90 22 117/63 100 06/23/19 03:51 37.0 C 79 19 138/77 98 06/23/19 01:21 72 06/23/19 00:11 37.0 C 75 19 104/80 99 PG Care Time/CCT Total # of Minutes Spent Total Time Spent with Patient: Total time spent is greater than 50% in coordination of care (as documented) at patient's floor/unit and/or counseling patient:
--- NOTE | 2019-06-23 12:59 | Cardiology Consultation ---
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 (2) Chronic atrial fibrillation: The patient's ventricular response is now adequately controlled. She does not follow long-term anticoagulation due to her elevated risk. (3) Chronic diastolic heart failure: Although the patient's BNP at presentation was elevated, she appears to be well compensated at this time. Would simply continue her usual diuretics. (4) Abnormal ECG: The patient demonstrates atrial fibrillation an incomplete right bundle- branch block. History of Present Illness Attending Physician: Case Chahal DO History of Present Illness Mrs. Gloria is a 74-year-old female admitted yesterday with mental status changes and acute respiratory failure. This causes order to assist in cardiac management. Of note, she was seen during a previous hospitalization by Dr. Jones. According to the record, the patient had the acute onset of shortness of breath prompting transfer to the emergency room for further care. She was found have an elevated ammonia level and it appeared that hepatic encephalopathy was responsible for her mental status changes. The patient was hospitalized in mid May with a coag-negative Staph bacteremia and endocarditis with vegetation seen on the anterior mitral leaflet. She is currently completing 6 weeks of intravenous antibiotics. The source of her infection was felt to be related to his cellulitis of her lower extremities. The patient also carries a history of permanent atrial fibrillation. She does not take long-term anticoagulation due to her elevated risk. The patient is awake and conversant, however, somewhat confused. Past medical and surgical history 1. Hypertension 2. Diastolic CHF 3. Permanent atrial fibrillation 4. SBE-May 23, 2019-see above 5. Moderate MS 6. RBBB 7. COPD 8. Chronic renal failure 9. Diabetes mellitus 10. Hypothyroidism 11. Cirrhosis 12. Hepatic encephalopathy 13. Obstructive sleep apnea 14. Left BKA 15. DNR Social history Patient is a resident [facility] No tobacco or alcohol. Family history Noncontributory Review of systems Unobtainable Allergies Allergy/AdvReac Type Severity Reaction Status Date / Time duloxetine AdvReac Mild DIZZINESS Verified 06/22/19 11:11 indigotindisulfonic acid AdvReac Unknown "spaced Verified 06/22/19 11:11 out" Home Medications Home Medications Medication Instructions Recorded Confirmed Type Oxygen Home #1 ea 05/29/19 06/21/19 History blood sugar diagnostic strips #10 ea 05/29/19 06/21/19 History fluticasone 250 mcg-salmeterol 50 1 puffs INHALATION BID #60 ea 05/29/19 06/22/19 History mcg/dose blistr powdr for inhalation furosemide 40 mg tablet 40 mg PO QAM #60 tab 05/29/19 06/22/19 History gabapentin 300 mg capsule 300 mg PO BID cap 05/29/19 06/22/19 History insulin human U-100 NPH-regulr 30 unit SUBCUT HS ml 05/29/19 06/22/19 History 70-30 mix 100 unit/mL subcutaneous susp insulin syringe U-100 with needle #10 ea 05/29/19 06/21/19 History 0.3 mL 30 gauge x 1/2" lactulose 20 gram/30 mL oral 20 gm PO DAILY PRN ml 05/29/19 06/22/19 History solution levothyroxine 200 mcg tablet 200 mcg PO QAM tab 05/29/19 06/22/19 History levothyroxine 50 mcg tablet 50 mcg PO QAM tab 05/29/19 06/22/19 History nitroglycerin 0.4 mg sublingual 0.4 mg SL Q5M PRN tab 05/29/19 06/22/19 History tablet pantoprazole 20 mg tablet,delayed 20 mg PO QAM #30 tab 05/29/19 06/22/19 History release ranitidine 150 mg capsule 150 mg PO QAM cap 05/29/19 06/22/19 History rifaximin 550 mg tablet 550 mg PO BID tab 05/29/19 06/22/19 History spironolactone 25 mg tablet 25 mg PO BIDM #180 tab 05/29/19 06/22/19 History tiotropium bromide 18 mcg capsule 1 cap INHALATION QAM #30 puffs 05/29/19 06/22/19 History with inhalation device ascorbic acid (vitamin C) [Vitamin 500 mg PO BID 06/22/19 06/22/19 History C] ceftriaxone 2 g IV DAILY@1300 06/22/19 06/22/19 History ferrous sulfate 325 mg PO BID 06/22/19 06/22/19 History furosemide 20 mg PO UD 06/22/19 06/22/19 History gabapentin 100 mg PO DAILY@1230 06/22/19 06/22/19 History heparin (porcine) 5,000 unit SUBCUT Q8H 06/22/19 06/22/19 History hydrocodone-acetaminophen 1 tab PO TID 06/22/19 06/22/19 History insulin NPH and regular human 35 unit SUBCUT QAM 06/22/19 06/22/19 History [Novolin 70/30 U-100 Insulin] methyl salicylate-menthol [Bengay 1 applic TOPICAL DAILY PRN 06/22/19 06/22/19 History Greaseless] metoprolol tartrate 25 mg PO BID 06/22/19 06/22/19 History multivitamin,ty-sfvx-thankhgi 1 tab PO QAM 06/22/19 06/22/19 History [Therems-M] Patient History Medical History Hypothyroidism (Chronic) Ambulatory dysfunction (Chronic) History of anxiety (Chronic) History of hypokalemia (Chronic) Obstructive sleep apnea (Chronic) CHF (congestive heart failure) (Chronic) CKD (chronic kidney disease) stage 3, GFR 30-59 ml/min Complete below knee amputation of left lower extremity Abdominal hernia Family history non-contributory Hip fracture Family History Other Family history non-contributory Social History Preferred Language: Gibralt[place] Communication Ability: confused 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 Electrolytes note a sodium of 141, potassium 5.5, chloride 107, bicarb 27, BUN 62, creatinine 2.45, and glucose of 91. Magnesium level is 2.9. AST is 176 with an ALT of 147. Troponin I levels [place] 0[place] [address]. INR is 1.4. Diagnostic Findings EKG notes atrial fibrillation with a rapid ventricular response. There is a complete right bundle-branch block and a possible old lateral IL. Chest x-ray notes a right-sided pleural effusion and cardiomegaly. PG Care Time/CCT Total # of Minutes Spent Total Time Spent with Patient: Total time spent is greater than 50% in coordination of care (as documented) at patient's floor/unit and/or counseling patient:
[2019-06-23] MEDS: GABAPENTIN 100 MG CAP PO SCH (13:00)
[2019-06-23] MEDS: DICLOFENAC SOD 1% GEL 100 GM TUBE EXT SCH (14:39)
[2019-06-23] MEDS: cefTRIAXone SODIUM 2,000 MG in DEXTROSE 5% 50 ML IV SCH (15:46)
[2019-06-24] MEDS: HEPARIN SOD 5,000 UNIT/0.5 ML VIAL SQ SCH ×3 (00:03→16:51)
[2019-06-24] MEDS: LEVOTHYROXINE SODIUM 50 MCG TABLET PO SCH (05:37)
[2019-06-24] MEDS: LEVOTHYROXINE SODIUM 200 MCG TABLET PO SCH (05:37)
[2019-06-24 05:52] LABS: INR 1.5 (0.9-1.1)
[2019-06-24 06:15] LABS: Albumin Level 2.9 gm/dl (3.4-5.0); BUN Creatinine Ratio 29.6 (10-20); Bilirubin Direct 0.3 mg/dl (0-0.2); Calcium 8.2 mg/dl (8.5-10.1); Creatinine Clr Calc Pharmacy 26.1 ml/min; Est GFR (African American) 23.6; Est GFR (Non-African American) 20.3; Potassium 4.9 mmol/L (3.5-5.1)
[2019-06-24 06:21] LABS: Bilirubin,Total 0.5 mg/dl (0.2-1); Phosphorus 4.8 mg/dl (2.5-4.9); Total Protein 6.4 gm/dl (6.4-8.2)
[2019-06-24] MEDS: FLUTICASONE/SALMETEROL 250/50 (ADVAIR) 14 PUFF/1 INHALER INH SCH ×2 (07:55→20:58)
[2019-06-24] MEDS: METOPROLOL TARTRATE 25 MG TAB PO SCH ×2 (07:56→21:01)
[2019-06-24] MEDS: LACTULOSE SYRUP 20 GM/30 ML UDC PO SCH ×3 (07:56→20:59)
[2019-06-24] MEDS: CEROVITE ADV FORMULA TAB PO SCH (07:57)
[2019-06-24] MEDS: PANTOprazole 40 MG TAB PO SCH (07:58)
[2019-06-24] MEDS: TIOTROPIUM BROMIDE 5 PUFF/90 MCG INH INH SCH (07:58)
[2019-06-24] MEDS: DICLOFENAC SOD 1% GEL 100 GM TUBE EXT SCH (07:58)
[2019-06-24] MEDS: ZINC SULFATE 220 MG CAPSULE PO SCH (07:59)
[2019-06-24] MEDS: NYSTATIN POWDER 15GM BTL EXT SCH ×2 (07:59→21:02)
[2019-06-24] MEDS: RIFAXIMIN 550 MG TABLET PO SCH ×2 (07:59→21:06)
[2019-06-24] MEDS: HYDROCODONE/ACETAMINOPHEN 7.5/325MG TAB PO SCH ×3 (08:03→21:10)
--- NOTE | 2019-06-24 08:07 | Family Medicine Progress Note ---
Date of Service June 24, 2019 Assessment & Plan (1) Encephalopathy, hepatic: #Encephalopathy, hepatic: Per patient's family there is concern she has not been receiving her outpatient lactulose at [facility] they are concerned this led to her current presentation. Her shortness of breath is likely secondary to hyper ammonia, admission ammonia levels were 104. -Gastroenterology was consulted -Continue lactulose 20 g 3 times daily titrate to achieve to 3 soft BMs daily -Continue with rifaximin 550 mg twice daily -Start zinc sulfate 220 mg daily -Abdominal ultrasound on June 21 without ascites -Follow-up blood cultures -Hepatitis A positive serologies otherwise negative -No evidence of GI bleed -GI signed off #Cirrhosis: Of unknown etiology differentials include secondary to CHF versus nonalcoholic steatohepatitis versus viral versus other etiologies -Management as above #Acute on chronic kidney disease Patient has a long history of chronic kidney disease stage IV, baseline creatinine 1.6-1.7. Likely secondary to microvascular disease from hypertension, diabetes and obesity versus hepatorenal syndrome type II versus chronic intravascular volume depletion with high-dose diuretics. -Consulted nephrology following recommendations -Hold diuretics for now, DC spironolactone -Monitor daily electrolyte panel, if renal function worsens consider midodrine and octreotide -Hold gabapentin 300 mg twice daily, only 100 mg at bedtime -Encourage p.o. intake, if inadequate will need IV fluids -Dose medication for GFR less than 30 #CKD (chronic kidney disease), stage IV: Management as described above. #Pleural effusion on right: Patient has history of pleural effusion previously identified in 2017, this is been stable since then. Admitting physician was concern for hepatopulmonary syndrome, however given no AVMs this is not likely. There was some con sideration as to whether or not to perform thoracocentesis, however given the patient's current presentation, lack of symptomology, and persistence of pleural effusion it was elected to forego invasive evaluation at present. -Pulmonology consulted -Likely hepatic hydrothorax, no clear indication for serial drainage -Patient declines invasive procedures. -Should patient become symptomatically consider thoracocentesis -Continue CPAP -Hypoxemic respiratory failure secondary to fluid overload, compressive atelectasis, and restrictive lung disease related to body habitus. Wean O2 as tolerated -There is no hepatopulmonary syndrome #Infective endocarditis: Patient recently hospitalized in May and diagnosed with infective endocarditis, has been maintained on outpatient IV antibiotics. We will continue these while she is hospitalized. -Continue ceftriaxone 2 g daily #Non-ST elevation GA (NSTEMI): Patient presented with troponin elevation without significant ET EKG changes to indicate a active myocardial infarction. 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 -Consulted cardiology appreciate recommendations #Chronic diastolic heart failure: Long history of -Consulted cardiology -Despite elevated BNP appears to be well compensated at present. -When able resume diuretics FENa: Heart healthy diet Code Status: DNR/DNI DVT PPX: Heparin 5000 units every 8 PT/OT: Ordered Dispo: Downgrade to [facility] / [facility] Miguel Rajan MD PGY 2, [facility] This chart was completed utilizing [employer] voice recognition software. Grammatical errors, random word insertions, pronoun errors, and in complete sentences are an occasional consequence of the system. Any questions or concerns about the content, text, or information contained within the body of this dictation should be addressed directly to the physician for clarification. Results & Data Vital Signs (Past 12 Hours) Vital Signs Temp Pulse Pulse Resp BP BP Pulse Ox 06/24/19 07:12 36.2 C L 74 20 124/57 L 99 06/24/19 04:59 36.5 C 83 22 121/61 99 06/23/19 23:42 36.8 C 80 22 109/63 100 06/23/19 22:57 87 PG Care Time/CCT Total # of Minutes Spent Total Time Spent with Patient: Total time spent is greater than 50% in coordination of care (as documented) at patient's floor/unit and/or counseling patient: Resident Activity Tracking Resident Involvement: Resident Care Provided Care Provided: Adult Hospital Medicine
[2019-06-24] MEDS ORDERED: PHARMACY GLYCEMIC MGMT CONSULT PRN (08:12)
[2019-06-24] MEDS ORDERED: GLUCAGON FOR INJ 1 MG VIAL IM PRN (08:15)
[2019-06-24] MEDS ORDERED: DEXTROSE 50% 50 ML SYRINGE IV PRN (08:15)
[2019-06-24] MEDS ORDERED: CARBOHYDRATES FOR HYPOGLYCEMIA PO PRN (08:15)
[2019-06-24] MEDS ORDERED: GLUCOSE 10 TABS/TUBE PO PRN (08:15)
[2019-06-24] MEDS ORDERED: GLUCOSE 40% GEL 15 GM TUBE PO PRN (08:15)
--- NOTE | 2019-06-24 08:18 | Pharmacy Report ---
Glycemic Control Consultation - Date of Service June 24, 2019 - Scope Scope: Glycemic Pharmacist consulted for glycemic control and to write orders per [facility] inpatient glycemic control protocol - Objective Weight: 107.4 kg Accuchecks BSG (last 24hrs): 06/24/19 05:30 Glucose 189 H Laboratory Data (last 24hrs): 06/24/19 05:30 Potassium 4.9 Carbon Dioxide 28 Anion Gap 5.0 Creatinine 2.28 H Est Cr Clr Drug Dosing 26.1 HbA1c: 4% ON 05/22/19 * However, this result is likely somewhat unreliable in ESRD patients d/t interactions between the A1c analyzing technique and high levels of urea in ESRD, reduced RBC life span, iron deficiency anemia, and EPO administration. - Recent Pertinent Medications Outpatient Anti-diabetic Regimen: * NPH 30 units SQ BID * Lispro 8-18 units SQ based on BSG range SSI - Assessment & Plan Assessment & Plan: ASSESSMENT: * 74yo T2DM female known to pharmacy from previous admissions/glycemic consults. * Degree of outpatient control is unknown as A1c is unreliable in anemia * Per previous admissions, patient has required ~ 30-40 units of insulin per day with near-adequate control. Pt typically does not require outpatient dosing of insulin while admitted. Pt received no insulin yesterday. * Will start regimen c/w inpatient regimen from May admission and titrate based on BSG trends. PLAN FOR INPATIENT GLYCEMIC CONTROL: * Start Basal insulin * NPH 12 units SQ BID * Loosen Bolus insulin * NovoLog per scale ACHS or Q6hrs while NPO * Goal Range: Low 110 mg/dL - High 150 mg/dL * Correction Factor: 25 mg/dL/unit * Nutritional / Prandial insulin per carb ratio of 1 unit per 8 grams CHO consumed * Please note that the plan above was derived based on current level of insulin resistance and hospital stress. These recommendations are appropriate for inpatient admission only. Plan of care upon discharge will need to be reassessed to avoid potential outpatient hypo/hyperglycemia. Thank you.
[2019-06-24] MEDS ORDERED: INSULIN ASPART 100 UNITS/ML 3 ML PEN SC SCH ×2 (08:30→12:45)
[2019-06-24] MEDS ORDERED: INSULIN HUMAN NPH SC SCH (09:00)
--- NOTE | 2019-06-24 09:30 | Gastroenterology Progress Note ---
Date of Service June 24, 2019 Assessment & Plan (1) Encephalopathy, hepatic: (2) Cirrhosis: 1. Continue Lactulose 20g TID to maintain ~3 bms daily. 2. Continue Xifaxan 550 mg BID. 3. Continue supportive care. 4. Will sign off from GI perspective. Please do not hesitate to contact us if we can be of assistance in the care of this patient again during hospitalization. Supervising Physician Co-Signing Physician Notes I personally evaluated the patient and agree with the findings as documented by ADELE Ochoa Exam: abd: soft, nt, nd Subjective Patient alert and oriented to person and place. Patient had 3 documented BMs over the past 24 hours. Denies any CP, palpitations, significant SOB, abdominal pain or vomiting. Continues Xifaxan and Lactulose. Review of Systems Constitutional: + fatigue Respiratory: as per Subjective / HPI Cardiovascular: as per Subjective / HPI Gastrointestinal: as per Subjective / HPI Psychiatric: as per Subjective / HPI Physical Exam Constitutional: WD/WN, vitals as above no acute distress Respiratory: Auscultation: + diminished lung sounds (bases) Cardiovascular: Rate/Rhythm: + irregularly irregular Gastrointestinal (Abdomen): Inspection/Auscultation: normal bowel sounds Percussion/Palpation: abdomen soft; abdomen nontender Psychiatric: Orientation: alert, oriented to person and oriented to place Affect: + tearful affect Results & Data Vital Signs (Past 12 Hours) Vital Signs Temp Pulse Pulse Resp BP BP Pulse Ox 06/24/19 07:12 36.2 C L 74 20 124/57 L 99 06/24/19 04:59 36.5 C 83 22 121/61 99 06/23/19 23:42 36.8 C 80 22 109/63 100 06/23/19 22:57 87 Laboratory Results Abnormal lab results 06/23/19 06/24/19 06/24/19 Range/Units 15:35 05:30 05:30 PT 15.0 H (9.0-12.0) Seconds INR 1.5 H (0.9-1.1) BUN (7-18) mg/dl Creatinine (0.6-1.2) mg/dl BUN/Creatinine Ratio (10-20) Glucose (70-99) mg/dl POC Glucose (70-99) Calcium (8.5-10.1) mg/dl Direct Bilirubin (0-0.2) mg/dl AST (15-37) U/L ALT (12-78) U/L Ammonia 58.4 H (11-32) umol/L Troponin I 1.310 H* (0-0.045) ng/ml Albumin (3.4-5.0) gm/dl 06/24/19 06/24/19 Range/Units 05:30 08:35 PT (9.0-12.0) Seconds INR (0.9-1.1) BUN 68 H (7-18) mg/dl Creatinine 2.28 H (0.6-1.2) mg/dl BUN/Creatinine Ratio 29.6 H (10-20) Glucose 189 H (70-99) mg/dl POC Glucose 195 H (70-99) Calcium 8.2 L (8.5-10.1) mg/dl Direct Bilirubin 0.3 H (0-0.2) mg/dl AST 68 H (15-37) U/L ALT 151 H (12-78) U/L Ammonia (11-32) umol/L Troponin I (0-0.045) ng/ml Albumin 2.9 L (3.4-5.0) gm/dl PG Care Time/CCT Total # of Minutes Spent Total Time Spent with Patient: Total time spent is greater than 50% in coordination of care (as documented) at patient's floor/unit and/or counseling patient:
--- NOTE | 2019-06-24 11:03 | Nephrology Progress Note ---
Date of Service June 24, 2019 Assessment & Plan (1) AINSLEY (acute kidney injury): Valery Gloria is a 74-year-old female with past medical history significant for stage 4 chronic kidney disease baseline creatinine around 1.6- 1.7 and eGFR around 35. Chronic kidney disease most likely secondary to microvascular disease with history of hypertension, diabetes and obesity versus hepatorenal syndrome type 2 versus chronic intravascular volume depletion with high dose diuretics. Prior urinalysis showed only trace proteinuria. Admitted with progressive shortness of breath, change in mental status. On admission she was found to have right-sided large pleural effusion, acute kidney injury and hyperkalemia. Ammonia level was elevated at 104 Acute kidney injury most hemodynamically mediated vs hepatorenal syndrome. Clinically seems volume depleted. Renal function slightly improved, hype rkalemia resolved. She continues to have significant lower extremity edema however seems intravascularly volume depleted. --continue to hold Lasix for now. Encourage po intake --monitor renal function electrolyte closely --dose medications for GFR less than 30 Will follow (2) Encephalopathy, hepatic: (3) Anemia: (4) CKD (chronic kidney disease), stage IV: (5) Acute UTI: Subjective Valery Was seen and examined in her room this morning. She denies any shortness of breath, chest pain, no fever or chills. Has been having 3-4 bowel movement, ammonia level improved. Renal function slightly improved to creatinine 2.4, electrolyte remain acceptable. Has been having decent urine output. Review of Systems Review of Systems: All systems reviewed & are unremarkable except as noted in HPI & below Physical Exam Constitutional: + ill appearing; no acute distress Neck: trachea midline Respiratory: normal respiratory effort Auscultation: + diminished lung sounds; no crackles and no wheezes Cardiovascular: Rate/Rhythm: regular rate and regular rhythm Heart Sounds: normal S1 and normal S2 Extremities: + edema Neurologic: moves all extremities and awake; not confused Psychiatric: A+Ox3, euthymic affect Results & Data Vital Signs (Past 12 Hours) Vital Signs Temp Pulse Resp BP BP Pulse Ox 06/24/19 07:12 36.2 C L 74 20 124/57 L 99 06/24/19 04:59 36.5 C 83 22 121/61 99 06/23/19 23:42 36.8 C 80 22 109/63 100 PG Care Time/CCT Total # of Minutes Spent Total Time Spent with Patient: Total time spent is greater than 50% in coordination of care (as documented) at patient's floor/unit and/or counseling patient:
[2019-06-24] MEDS: SPIRONOLACTONE 25 MG TAB PO SCH (11:49)
[2019-06-24] MEDS: GABAPENTIN 100 MG CAP PO SCH (13:08)
[2019-06-24] MEDS: cefTRIAXone SODIUM 2,000 MG in DEXTROSE 5% 50 ML IV SCH (15:52)
[2019-06-24] MEDS: INSULIN ASPART 100 UNITS/ML 3 ML PEN SC SCH ×2 (16:49→21:04)
[2019-06-24] MEDS: INSULIN HUMAN NPH SC SCH (21:03)
[2019-06-25] MEDS: HEPARIN SOD 5,000 UNIT/0.5 ML VIAL SQ SCH ×4 (01:06→23:30)
[2019-06-25] MEDS: LEVOTHYROXINE SODIUM 200 MCG TABLET PO SCH (06:31)
[2019-06-25] MEDS: LEVOTHYROXINE SODIUM 50 MCG TABLET PO SCH (06:32)
[2019-06-25 06:53] LABS: Albumin Level 2.8 gm/dl (3.4-5.0); BUN Creatinine Ratio 29.8 (10-20); Calcium 8.1 mg/dl (8.5-10.1); Creatinine Clr Calc Pharmacy 26.9 ml/min; Est GFR (African American) 25.2; Est GFR (Non-African American) 21.7; Potassium 4.9 mmol/L (3.5-5.1)
[2019-06-25] MEDS: RIFAXIMIN 550 MG TABLET PO SCH ×2 (07:50→20:49)
[2019-06-25] MEDS: METOPROLOL TARTRATE 25 MG TAB PO SCH ×2 (07:50→20:50)
[2019-06-25] MEDS: FLUTICASONE/SALMETEROL 250/50 (ADVAIR) 14 PUFF/1 INHALER INH SCH ×2 (07:50→20:46)
[2019-06-25] MEDS: LACTULOSE SYRUP 20 GM/30 ML UDC PO SCH ×3 (07:50→20:48)
[2019-06-25] MEDS: ZINC SULFATE 220 MG CAPSULE PO SCH (07:51)
[2019-06-25] MEDS: DICLOFENAC SOD 1% GEL 100 GM TUBE EXT SCH (07:51)
[2019-06-25] MEDS: PANTOprazole 40 MG TAB PO SCH (07:52)
[2019-06-25] MEDS: TIOTROPIUM BROMIDE 5 PUFF/90 MCG INH INH SCH (07:52)
[2019-06-25] MEDS: CEROVITE ADV FORMULA TAB PO SCH (07:52)
[2019-06-25] MEDS: NYSTATIN POWDER 15GM BTL EXT SCH ×2 (07:53→20:50)
[2019-06-25] MEDS: HYDROCODONE/ACETAMINOPHEN 7.5/325MG TAB PO SCH ×3 (08:48→20:58)
[2019-06-25] MEDS: INSULIN ASPART 100 UNITS/ML 3 ML PEN SC SCH ×4 (09:19→20:31)
[2019-06-25] MEDS: INSULIN HUMAN NPH SC SCH ×2 (09:52→18:05)
--- NOTE | 2019-06-25 10:10 | Nephrology Progress Note ---
Date of Service June 25, 2019 Assessment & Plan (1) AINSLEY (acute kidney injury): Valery Gloria is a 74-year-old female with past medical history significant for stage 4 chronic kidney disease baseline creatinine around 1.6- 1.7 and eGFR around 35. Chronic kidney disease most likely secondary to microvascular disease with history of hypertension, diabetes and obesity versus hepatorenal syndrome type 2 versus chronic intravascular volume depletion with high dose diuretics. Prior urinalysis showed only trace proteinuria. Admitted with progressive shortness of breath, change in mental status. On admission she was found to have right-sided large pleural effusion, acute kidney injury and hyperkalemia. Ammonia level was elevated at 104 Acute kidney injury most hemodynamically mediated. Clinically seems volume depleted. Renal function slowly improving. She continues to have significant lower extremity edema however seems intravascularly volume depleted. Lasix has been on hold. --Encourage po intake --monitor renal function electrolyte with renal panel daily --dose medications for GFR less than 30 Will follow (2) Encephalopathy, hepatic: (3) Anemia: (4) CKD (chronic kidney disease), stage IV: (5) Acute UTI: Subjective Valery Was seen and examined in her room this morning. She denies any shortness of breath, chest pain, no fever or chills. Renal function slowly improving , creatinine 2.3, electrolyte remain acceptable. Has been having decent urine output. Review of Systems Review of Systems: All systems reviewed & are unremarkable except as noted in HPI & below Physical Exam Constitutional: + ill appearing; no acute distress Respiratory: normal respiratory effort, lungs clear to auscultation Cardiovascular: Rate/Rhythm: regular rate and regular rhythm Heart Sounds: normal S1 and normal S2 Extremities: + edema (rt LE, left LE BKA stump) Neurologic: moves all extremities and awake; not confused Psychiatric: A+Ox3, euthymic affect Results & Data Vital Signs (Past 12 Hours) Vital Signs Temp Pulse Resp BP Pulse Ox 06/25/19 07:17 36.7 C 77 20 137/66 99 06/24/19 22:48 36.7 C 81 20 125/69 98 PG Care Time/CCT Total # of Minutes Spent Total Time Spent with Patient: Total time spent is greater than 50% in coordination of care (as documented) at patient's floor/unit and/or counseling patient:
--- NOTE | 2019-06-25 10:28 | Pharmacy Report ---
Pharmacy Glycemic Short Note 2 - Date of Service June 25, 2019 - Glycemic Short BSG Results (Last 24 hours): 06/24/19 06/24/19 06/24/19 11:42 16:10 16:14 Glucose POC Glucose 275 H 309 H* 258 H 06/24/19 06/25/19 06/25/19 20:46 05:40 08:14 Glucose 104 H POC Glucose 199 H 118 H OUTPATIENT ANTIDIABETIC REGIMEN: * NPH 30 units SQ BID * Lispro 8-18 units SQ based on BSG range SSI - Assessment & Plan ASSESSMENT: 06/25 * Valery's BSGs continued to increase yesterday so hospitalist increased NPH to 30 units BID and tightened CF/CR. I suspect BSGs were high since she did not receive any insulin the previous day. * Her fasting is significantly improved today from the additional insulin yesterday. She received a total of 66 units of insulin, compared to NONE the day prior. * Anticipate BSGs to continue to fall if current regimen continues. D/w Dr. Rajan today, who would like pharmacy to continue to manage. Will plan to decrease back to regimen that was initiated yesterday, which is based upon previous admissions. * AM Novolog and NPH given late, as directed by pharmacy until dose changes were clarified this AM; therefore, lunch BSG not reflective of AM insulin doses 06/24 * 74yo T2DM female known to pharmacy from previous admissions/glycemic consults. * Degree of outpatient control is unknown as A1c is unreliable in anemia * Per previous admissions, patient has required ~ 30-40 units of insulin per day with near-adequate control. Pt typically does not require outpatient dosing of insulin while admitted. Pt received no insulin yesterday. * Will start regimen c/w inpatient regimen from May admission and titrate based on BSG trends. PLAN FOR INPATIENT GLYCEMIC CONTROL: * Basal insulin - decrease to similar regimen during previous admissions * NPH 12 units SQ BID * Bolus insulin - loosen * NovoLog per scale ACHS or Q6hrs while NPO * Goal Range: Low 110 mg/dL - High 150 mg/dL * Correction Factor: 25 mg/dL/unit * Nutritional / Prandial insulin per carb ratio of 1 unit per 8 grams CHO consumed PLAN FOR DISCHARGE: * Patient's A1c = 4% on 05/22/19 * However, this result is likely somewhat unreliable in ESRD patients d/t interactions between the A1c analyzing technique and high levels of urea in ESRD, reduced RBC life span, iron deficiency anemia, and EPO administration. HbA1c > 7.5% in ESRD patient may overestimate the extent of hyperglycemia in ESRD patients. * Recommend to continue outpatient regimen on discharge, as long as patient not experiencing hypoglycemia at home
--- NOTE | 2019-06-25 10:57 | Family Medicine Progress Note ---
Date of Service June 25, 2019 Assessment & Plan (1) Encephalopathy, hepatic: #Encephalopathy, hepatic: Per patient's family there is concern she has not been receiving her outpatient lactulose at [facility] they are concerned this led to her current presentation. Her shortness of breath is likely secondary to hyper ammonia, admission ammonia levels were 104. -Gastroenterology was consulted -Continue lactulose 20 g 3 times daily titrate to achieve to 3 soft BMs daily -Continue with rifaximin 550 mg twice daily -Start zinc sulfate 220 mg daily -Abdominal ultrasound on June 21 without ascites -Follow-up blood cultures -Hepatitis A positive serologies otherwise negative -No evidence of GI bleed -GI signed off #Cirrhosis: Of unknown etiology differentials include secondary to CHF versus nonalcoholic steatohepatitis versus viral versus other etiologies -Management as above #Acute on chronic kidney disease Patient has a long history of chronic kidney disease stage IV, baseline creatinine 1.6-1.7. Likely secondary to microvascular disease from hypertension, diabetes and obesity versus hepatorenal syndrome type II versus chronic intravascular volume depletion with high-dose diuretics. -Consulted nephrology following recommendations -Hold diuretics for now, DC spironolactone -Despite holding diuretics patient still appears intravascular volume depleted -Monitor daily electrolyte panel -Hold gabapentin 300 mg twice daily, only 100 mg at bedtime -Encourage p.o. intake, if inadequate will need IV fluids -Dose medication for GFR less than 30 #CKD (chronic kidney disease), stage IV: Management as described above. #Pleural effusion on right: Patient has history of pleural effusion previously identified in 2017, this is been stable since then. Admitting physician was concern for hepatopulmonary syndrome, however given no AVMs this is not likely. There was some consideration as to whether or not to perform thoracocentesis, however given the patient's current presentation, lack of symptomology, and persistence of pleural effusion it was elected to forego invasive evaluation at present. -Pulmonology consulted -Likely hepatic hydrothorax, no clear indication for serial drainage -Patient declines invasive procedures. -Should patient become symptomatically consider thoracocentesis -Continue CPAP -Hypoxemic respiratory failure secondary to fluid overload, compressive atelectasis, and restrictive lung disease related to body habitus. Wean O2 as tolerated -There is no hepatopulmonary syndrome #Infective endocarditis: Patient recently hospitalized in May and diagnosed with infective endocarditis, has been maintained on outpatient IV antibiotics. We will continue these while she is hospitalized. Needs a total of 6 weeks, this is the end of week 4 -Continue ceftriaxone 2 g daily #Afib: Patient presented with troponin elevation without significant ET EKG changes to indicate a active myocardial infarction. 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 #Chronic diastolic heart failure: Long history of -Consulted cardiology -Despite elevated BNP appears to be well compensated at present. -When able resume diuretics FENa: Heart healthy diet Code Status: DNR/DNI DVT PPX: Heparin 5000 units every 8 PT/OT: Ordered Dispo: medsurg dc pending snf approval Miguel Rajan MD PGY 2, [facility] This chart was completed utilizing [employer] voice recognition software. Grammatical errors, random word insertions, pronoun errors, and in complete sentences are an occasional consequence of the system. Any questions or concerns about the content, text, or information contained within the body of this dictation should be addressed directly to the physician for clarification. Supervising Physician Co-Signing Physician Notes Patient seen and examined with Dr. Rajan. I agree with their exam findings, review of systems, assessment and plan. I have personally reviewed the lab work and imaging from today. patient continues to do well, reviewed labs, Cr improving no fever or chills, no dyspnea Exam: obese female, NAD, AAOx3, lungs CTA bilaterally, decreased BS in right base, heart regular, no murmurs abdomen soft, NT, +BS, extremities warm, edema in right leg, left side with AKA - Hepatic encephalopathy: likely due to poor compliance with Lactulose no fault of the patient as she gets her medications from nursing staff she NEEDS to take her medication so that she has 3 loose stools a day, low protein diet ammonia level coming down appropriately and patient is alert and oriented will make it clear on instructions that patient requires the Lactulose - AINSLEY on chronic kidney disease:Cr continues to come down slowly well hydrated at this point, appreciate nephrology input - Infective endocarditis: continue on Ceftriaxone, no signs of sepsis, infection well controlled for rest of details see resident note anticipate patient returning to [facility] once medically stable Subjective Patient sitting upright in bed this morning in no acute distress, eating breakfast. Patient reports no acute events overnight, still endorsing difficulties with nursing. Otherwise patient is tolerating her diet, grossly incontinent voiding and stooling, and sleeping well. Patient reports her shortness of breath is improving, no chest pain, no fever, no chills. No acute concerns otherwise all questions answered. Physical Exam Physical Exam: General: Morbidly obese female lying in bed in no acute distress HEENT: Normocephalic atraumatic Neck: Unable to assess secondary to adiposity Cardiac: Irregularly irregular rhythm, I did not appreciate any significant murmurs, rubs, gallops, 4+ pedal edema bilaterally, unable to appreciate JVD, negative calf tenderness Respiratory: Bibasilar crackles, greatest at right lung base, no wheezing. Symmetrical chest expansion. GI: Distended, nontender to palpation, bowel sounds present Neuro: AAO x2, oftentimes inappropriate responses to questions, overall improved mentation Results & Data Vital Signs (Past 12 Hours) Vital Signs Temp Pulse Resp BP Pulse Ox 06/25/19 07:17 36.7 C 77 20 137/66 99 Laboratory Results 06/25/19 06/25/19 06/24/19 Range/Units 08:14 05:40 20:46 Sodium 138 (136-145) mmol/L Potassium 4.9 (3.5-5.1) mmol/L Chloride 105 (98-107) mmol/L Carbon Dioxide 29 (21-32) mmol/L Anion Gap 4.0 (3-11) BUN 64 H (7-18) mg/dl Creatinine 2.16 H (0.6-1.2) mg/dl Est Cr Clr Drug Dosing 26.9 ml/min Est GFR ( Amer) 25.2 Est GFR (Non-Af Amer) 21.7 BUN/Creatinine Ratio 29.8 H (10-20) Glucose 104 H (70-99) mg/dl POC Glucose 118 H 199 H (70-99) Calcium 8.1 L (8.5-10.1) mg/dl Phosphorus 4.0 (2.5-4.9) mg/dl Albumin 2.8 L (3.4-5.0) gm/dl 06/24/19 06/24/19 06/24/19 Range/Units 16:14 16:10 11:42 Sodium (136-145) mmol/L Potassium (3.5-5.1) mmol/L Chloride (98-107) mmol/L Carbon Dioxide (21-32) mmol/L Anion Gap (3-11) BUN (7-18) mg/dl Creatinine (0.6-1.2) mg/dl Est Cr Clr Drug Dosing ml/min Est GFR ( Amer) Est GFR (Non-Af Amer) BUN/Creatinine Ratio (10-20) Glucose (70-99) mg/dl POC Glucose 258 H 309 H* 275 H (70-99) Calcium (8.5-10.1) mg/dl Phosphorus (2.5-4.9) mg/dl Albumin (3.4-5.0) gm/dl Medications Administered Current Inpatient Medications Hydrocodone Bitart/Acetaminophen (Ajo 7.5/325mg) 1 tab PO TID BRANDON Stop: 07/06/19 14:59 Last Admin: 06/25/19 08:48 Dose: 1 tab Documented by: Dextrose (Dextrose 50%) 25 - 50 ml IV UD PRN; Protocol PRN Reason: Hypoglycemia Protocol Stop: 07/24/19 08:14 Diclofenac Sodium (Voltaren 1% Top) 2 gm EXT DAILY BRANDON Stop: 07/23/19 13:44 Last Admin: 06/25/19 07:51 Dose: 2 gm Documented by: Gabapentin (Neurontin) 100 mg PO DAILY@1230 BRANDON Stop: 07/23/19 12:29 Last Admin: 06/24/19 13:08 Dose: 100 mg Documented by: Glucagon (Glucagen) 1 mg IM UD PRN; Protocol PRN Reason: Hypoglycemia Protocol Stop: 07/24/19 08:14 Glucose (Glucose 40%) 15 - 30 gm PO UD PRN; Protocol PRN Reason: Hypoglycemia Protocol Stop: 07/24/19 08:14 Glucose (Dex4 Glucose) 4 - 8 tabs PO UD PRN; Protocol PRN Reason: Hypoglycemia Protocol Stop: 07/24/19 08:14 Heparin Sodium (Beef Lung) (Heparin Sod 10 Unit/Ml Flush) 5 ml FLUSH PRN PRN PRN Reason: Flush Stop: 07/23/19 09:07 Last Admin: 06/25/19 10:17 Dose: 5 ml Documented by: Heparin Sodium (Porcine) (Heparin Sodium (Porcine)) 5,000 units SQ Q8H REPLACED BY [facility] Stop: 07/22/19 15:59 Last Admin: 06/25/19 09:17 Dose: 5,000 units Documented by: Ceftriaxone Sodium 2,000 mg/ (Dextrose) 70 mls @ 140 mls/hr IV DAILY@1530 REPLACED BY [facility] Stop: 08/03/19 15:29 Last Infusion: 06/24/19 16:43 Dose: Infused Documented by: Insulin Aspart (Novolog Flexpen) 0 units SC ACHS REPLACED BY [facility] Stop: 07/24/19 16:29 Last Admin: 06/25/19 09:19 Dose: 10 units Documented by: Insulin Human NPH (Novolin N Nph) 12 units SC BIDM REPLACED BY [facility]; Protocol Stop: 07/25/19 09:59 Last Admin: 06/25/19 09:52 Dose: 12 units Documented by: Lactulose (Chronulac) 20 gm PO TID REPLACED BY [facility] Stop: 07/22/19 14:59 Last Admin: 06/25/19 07:50 Dose: 20 gm Documented by: Levothyroxine Sodium (Synthroid) 50 mcg PO DAILYBB REPLACED BY [facility] Stop: 07/23/19 06:29 Last Admin: 06/25/19 06:32 Dose: 50 mcg Documented by: Levothyroxine Sodium (Synthroid) 200 mcg PO DAILYBB REPLACED BY [facility] Stop: 07/23/19 06:29 Last Admin: 06/25/19 06:31 Dose: 200 mcg Documented by: Metoprolol Tartrate (Lopressor) 25 mg PO BID REPLACED BY [facility] Stop: 07/22/19 20:59 Last Admin: 06/25/19 07:50 Dose: 25 mg Documented by: Miscellaneous (Carbohydrates For Hypoglycemia) 15 - 30 gm PO UD PRN PRN Reason: Hypoglycemia Treatment Stop: 07/24/19 08:14 Miscellaneous Information (Consult Glycemic Management Pharmacy) 1 ea N/A UD PRN PRN Reason: Consult Stop: 07/24/19 08:11 Morphine Sulfate (Morphine Sulfate) 2 mg IV Q30M PRN PRN Reason: Chest Pain Stop: 07/06/19 14:06 Multivitamins/Minerals (Multivitamin W/ Minerals Tab) 1 tab PO QAM REPLACED BY [facility] Stop: 07/23/19 08:59 Last Admin: 06/25/19 07:52 Dose: 1 tab Documented by: Nitroglycerin (Nitrostat) 0.4 mg SL Q5M PRN PRN Reason: chest pain Stop: 07/22/19 14:06 Nystatin (Mycostatin) 1 appln EXT BID BRANDON Stop: 07/22/19 14:59 Last Admin: 06/25/19 07:53 Dose: 1 appln Documented by: Ondansetron HCl (Zofran) 4 mg IV Q6H PRN PRN Reason: Nausea Stop: 07/22/19 14:06 Pantoprazole Sodium (Protonix) 40 mg PO QAM REPLACED BY [facility] Stop: 07/23/19 08:59 Last Admin: 06/25/19 07:52 Dose: 40 mg Documented by: Rifaximin (Xifaxan) 550 mg PO BID REPLACED BY [facility] Stop: 07/22/19 20:59 Last Admin: 06/25/19 07:50 Dose: 550 mg Documented by: Fluticasone/Salmeterol (Advair Diskus 250/50) 1 puffs INH BID REPLACED BY [facility] Stop: 07/22/19 20:59 Last Admin: 06/25/19 07:50 Dose: 1 puffs Documented by: Tiotropium [place] (Spiriva) 1 puffs INH QAM REPLACED BY [facility] Stop: 07/23/19 08:59 Last Admin: 06/25/19 07:52 Dose: 1 puffs Documented by: Zinc Sulfate (Zinc Sulfate) 220 mg PO QAM REPLACED BY [facility] Stop: 07/23/19 08:59 Last Admin: 06/25/19 07:51 Dose: 220 mg Documented by: PG Care Time/CCT Total # of Minutes Spent Total Time Spent with Patient: Total time spent is greater than 50% in coordination of care (as documented) at patient's floor/unit and/or counseling patient: Resident Activity Tracking Resident Involvement: Resident Care Provided Care Provided: Adult Hospital Medicine
[2019-06-25] MEDS: GABAPENTIN 100 MG CAP PO SCH (11:48)
--- NOTE | 2019-06-25 14:55 | Discharge Summary ---
Date of Service June 25, 2019 Admission HPI Per Admitting Provider The patient is 74 years old female who is a sn[facility] resident. She was sent to the emergency room with a complaints of increasing shortness of breath today. She was found to be tachypneic and tachycardic and had decreased mental status. She has liver cirrhosis and recent history of endocarditis and is currently on IV antibiotics. The further work-up done in the ER showed that patient has acute on chronic renal failure, and her labs show that she has elevated ammonia levels, and troponin and BNP is also high. She will be admitted to the PCU for further evaluation & management. She denies any chest pain. She is complaining of shortness of breath. No fever. No nausea vomiting. She was given lactulose in the ER. CODE STATUS was discussed and she is DNR/DNI Admission Exam Per Admitting Provider Constitutional: cooperative Eyes: PERRL, conjunctivae normal, anicteric sclerae ENMT: external ear and nose normal, oropharynx normal Neck: trachea midline, no thyromegaly Respiratory: + dullness to percussion Auscultation: + diminished lung sounds (Decreased breath sounds right base.) Cardiovascular: Rate/Rhythm: regular rate and regular rhythm Chest (Breasts): normal inspection/palpation of breasts Musculoskeletal: Amputation of the left leg noted. Partial amputation of the right foot noted Skin: no rashes, warm and dry Neurologic: patellar DTR's 2+ bilat, sensation intact normal touch/pain/proprioception and CN's II-XI intact bilaterally Cranial Nerves: EOM intact bilaterally Psychiatric: A+Ox3, euthymic affect Orientation: oriented to place, oriented to time and cooperative Eye Contact: + fair eye contact Motor Behavior: no abnormal motor movements Lymphatic: no cervical or axillary lymphadenopathy Principal Diagnosis Hepatic encephalopathy Discharge Exam General: Morbidly obese female lying in bed in no acute distress HEENT: Normocephalic atraumatic Neck: Unable to assess secondary to adiposity Cardiac: Irregularly irregular rhythm, I did not appreciate any significant murmurs, rubs, gallops, 4+ pedal edema bilaterally, unable to appreciate JVD, negative calf tenderness Respiratory: Bibasilar crackles, greatest at right lung base, no wheezing. Symmetrical chest expansion. GI: Distended, nontender to palpation, bowel sounds present Neuro: AAO x2, oftentimes inappropriate responses to questions, overall improved mentation Discharge Data Allergies Allergy/AdvReac Type Severity Reaction Status Date / Time duloxetine AdvReac Mild DIZZINESS Verified 06/22/19 11:11 indigotindisulfonic acid AdvReac Unknown "spaced Verified 06/22/19 11:11 out" Consultations 06/22/19 12:28 ED Decision to Admit Stat 06/22/19 14:07 Consult Cardiology Routine Consult Case Management - Discharge Planning Routine Consult Gastroenterology Routine Consult Nephrology Routine Consult Pulmonology Routine 06/24/19 14:50 Consult Case Management - Discharge Planning Routine Hospital Course (1) Encephalopathy, hepatic: It is of the utmost important that the patient receive her prescribed lactulose dosage and that it is titrated for her to achieve 3 bowel movements a day. Her most recent presentation to the hospital was most likely secondary to not receiving lactulose as scheduled. We will be discharging her with a Johnston in place as she has signs of skin breakdown and severe excoriation in her perineum. #Encephalopathy, hepatic: Patient has a history of end-stage cirrhosis of unknown etiology. There is a chronic problem for which she has been suffering from for an extended period of time. Per patient's family there is concern she has not been receiving her outpatient lactulose at [facility] they are concerned this led to her current presentation. Her shortness of breath is likely secondary to hyper ammonia, admission ammonia levels were 104. Upon admission to the hospital gastroenterology was consulted, they recommended titrating lactulose 20 g 3 times daily to achieve 3 soft bowel movements, starting the patient on rifaximin 550 mg twice daily, zinc sulfate 220 mg daily. An abdominal ultrasound from June 21 was reviewed and demonstrate no ascites, hepatitis serologies were obtained and positive for hepatitis A otherwise negative. There was no evidence of a GI bleed. After initiation of lactulose, the patient's ammonia levels subsequently decline, her mentation improved, she was monitored and subsequently discharged. She is to follow-up with GI as an outpatient #Cirrhosis: Of unknown etiology differentials include secondary to CHF versus nonalcoholic steatohepatitis versus viral versus other etiologies #Acute on chronic kidney disease Patient has a long history of chronic kidney disease stage IV, baseline creatinine 1.6-1.7. Likely secondary to microvascular disease from hypertension, diabetes and obesity versus hepatorenal syndrome type II versus chronic intravascular volume depletion with high-dose diuretics. Nephrology was consulted they recommended holding her diuretics while hospitalized discontinuing spironolactone. Despite holding her diuretics throughout the hospitalization she still appears to be intravascular volume depleted. Her gabapentin twice daily has been held and she is only receiving nighttime doses of 100 mg. Her electrolyte panel was monitored throughout the admission and she was repleted as indicated. Her medication should be dosed for GFR less than 30. #CKD (chronic kidney disease), stage IV: Management as described above. #Pleural effusion on right: Patient has history of pleural effusion previously identified in 2017, this is been stable since then. Admitting physician was concern for hepatopulmonary syndrome, however given no AVMs this is not likely. 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 They feel that the patient's hypoxemic respiratory failure secondary to fluid overload, compressive atelectasis, restrictive lung disease, and body habitus. There was some consideration as to whether or not to perform thoracocentesis, however given the patient's current presentation, lack of symptomology, and persistence of pleural effusion it was elected to forego invasive evaluation at present. #Infective endocarditis: Patient recently hospitalized in May and diagnosed with infective endocarditis, has been maintained on outpatient IV antibiotics. Ceftriaxone was continued these while she is hospitalized. Needs a total of 6 weeks, this is the end of week 4 -Continue ceftriaxone 2 g daily for at least 2 weeks, follow-up with ID as outpatient for further recommendations #Afib: Patient presented with troponin elevation without significant ET EKG changes to indicate a active myocardial infarction. 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 Her BNP was elevated on presentation however she appeared to be well compensated at present, despite being intravascularly depleted would resume diuretics when able. Admission ECG demonstrated atrial fibrillation with incomplete right bundle andressa block given patient's liver disease, there is no indication for long-term anticoagulation. 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 #Chronic diastolic heart failure: Long history of see atrial fibrillation for further details. FENa: Heart healthy diet Code Status: DNR/DNI DVT PPX: Heparin 5000 units every 8 PT/OT: Ordered Dispo: [facility] Miguel Rajan MD PGY 2, FCM This chart was completed utilizing [employer] voice recognition software. Grammatical errors, random word insertions, pronoun errors, and in complete sentences are an occasional consequence of the system. Any questions or concerns about the content, text, or information contained within the body of this dictation should be addressed directly to the physician for clarification. Total Time Total Time Spent Total Time Spent (In Minutes): >30 Discharge Plan Discharge Items Patient Disposition: Transfer [facility] Reason For Visit: SOB Discharge Diagnosis: Hepatic encephalopathy and acute hypoxemic respiratory failure Activity: Resume your previous activity Non-emergency contact: Primary Care Provider Call non-emergency contact if: you have any medication questions, your pain is not controlled and your temperature is above 101 Follow-up/Referrals: Madhav Bennett [Primary Care Provider] - Diet: Heart Healthy Addtl Attending Provider Instructions: It is of the utmost important that the patient receive her prescribed lactulose dosage and that it is titrated for her to achieve 3 bowel movements a day. Her most recent presentation to the hospital was most likely secondary to not receiving lactulose as scheduled. We will be discharging her with a Johnston in place as she has signs of skin breakdown and severe excoriation in her perineum. #Encephalopathy, hepatic: Patient has a history of end-stage cirrhosis of unknown etiology. There is a chronic problem for which she has been suffering from for an extended period of time. Per patient's family there is concern she has not been receiving her outpatient lactulose at [facility] they are concerned this led to her current presentation. Her shortness of breath is likely secondary to hyper ammonia, admission ammonia levels were 104. Upon admission to the hospital gastroenterology was consulted, they recommended titrating lactulose 20 g 3 times daily to achieve 3 soft bowel movements, starting the patient on rifaximin 550 mg twice daily, zinc sulfate 220 mg daily. An abdominal ultrasound from June 21 was reviewed and demonstrate no ascites, hepatitis serologies were obtained and positive for hepatitis A otherwise negative. There was no evidence of a GI bleed. After initiation of lactulose, the patient's ammonia levels cervantes bsequently decline, her mentation improved, she was monitored and subsequently discharged. She is to follow-up with GI as an outpatient #Cirrhosis: Of unknown etiology differentials include secondary to CHF versus nonalcoholic steatohepatitis versus viral versus other etiologies #Acute on chronic kidney disease Patient has a long history of chronic kidney disease stage IV, baseline creatinine 1.6-1.7. Likely secondary to microvascular disease from hypertension, diabetes and obesity versus hepatorenal syndrome type II versus chronic intravascular volume depletion with high-dose diuretics. Nephrology was consulted they recommended holding her diuretics while hospitalized discontinuing spironolactone. Despite holding her diuretics throughout the hospitalization she still appears to be intravascular volume depleted. Her gabapentin twice daily has been held and she is only receiving nighttime doses of 100 mg. Her electrolyte panel was monitored throughout the admission and she was repleted as indicated. Her medication should be dosed for GFR less than 30. #CKD (chronic kidney disease), stage IV: Management as described above. #Pleural effusion on right: Patient has history of pleural effusion previously identified in 2017, this is been stable since then. Admitting physician was concern for hepatopulmonary syndrome, however given no AVMs this is not likely. 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 They feel that the patient's hypoxemic respiratory failure secondary to fluid overload, compressive atelectasis, restrictive lung disease, and body habitus. There was some consideration as to whether or not to perform thoracocentesis, however given the patient's current presentation, lack of symptomology, and persistence of pleural effusion it was elected to forego invasive evaluation at present. #Infective endocarditis: Patient recently hospitalized in May and diagnosed with infective endocarditis, has been maintained on outpatient IV antibiotics. Ceftriaxone was continued these while she is hospitalized. Needs a total of 6 weeks, this is the end of week 4 -Continue ceftriaxone 2 g daily for at least 2 weeks, follow-up with ID as outpatient for further recommendations #Afib: Patient presented with troponin elevation without significant ET EKG changes to indicate a active myocardial infarction. 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 Her BNP was elevated on presentation however she appeared to be well compensated at present, despite being intravascularly depleted would resume diuretics when able. Admission ECG demonstrated atrial fibrillation with incomplete right bundle andressa block given patient's liver disease, there is no indication for long-term anticoagulation. 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 #Chronic diastolic heart failure: Long history of see atrial fibrillation for further details. FENa: Heart healthy diet Code Status: DNR/DNI DVT PPX: Heparin 5000 units every 8 PT/OT: Ordered Dispo: [facility] Miguel Rajan MD PGY 2, FCM This chart was completed utilizing [employer] voice recognition software. Grammatical errors, random word insertions, pronoun errors, and in complete sentences are an occasional consequence of the system. Any questions or concerns about the content, text, or information contained within the body of this dictation should be addressed directly to the physician for clarification. Pending Studies at Discharge: No Stand-Alone Forms: My [facility] Skilled Items Patient informed of condition?: Yes DNR: Yes Discharge Level of Care: Other Communicable Disease: No Discharge Prognosis: Stable Lines: US Guided Peripheral IV Urinary Catheter: Yes Medications and DC Order Prescriptions: New nystatin [Nystop] 100,000 unit/gram Powder 1 applic EXT BID Qty: 60 RF: 0 zinc sulfate 220 (50) mg Capsule 220 mg PO QAM 30 Days Qty: 30 RF: 3 Continued pantoprazole 20 mg tablet,delayed release (DR/EC) 20 mg PO QAM Qty: 30 RF: 0 gabapentin 300 mg capsule 300 mg PO BID RF: 0 fluticasone propion-salmeterol 250-50 mcg/dose blister with device 1 puffs inhalation BID Qty: 60 RF: 0 tiotropium bromide 18 mcg capsule, w/inhalation device 1 cap inhalation QAM Qty: 30 RF: 0 Oxygen Home Liters Per Minute .ROUTE .MEDSUPPLY Qty: 1 RF: 0 nitroglycerin 0.4 mg tablet, sublingual 0.4 mg SL Q5M PRN (Reason: chest pain) RF: 0 furosemide 40 mg tablet 40 mg PO QAM Qty: 60 RF: 0 insulin NPH and regular human 100 unit/mL (70-30) suspension 30 unit subcut HS RF: 0 OneTouch Ultra Blue Test Strip strip .ROUTE .MEDSUPPLY Qty: 10 RF: 0 insulin syringe-needle U-100 [BD Insulin Syringe Ultra-Fine] 0.3 mL 30 gauge x 1/2" syringe .ROUTE .MEDSUPPLY Qty: 10 RF: 0 lactulose 20 gram/30 mL solution 20 gm PO DAILY PRN (Reason: constipation) RF: 0 levothyroxine 200 mcg tablet 200 mcg PO QAM RF: 0 levothyroxine 50 mcg tablet 50 mcg PO QAM RF: 0 ranitidine HCl 150 mg capsule 150 mg PO QAM RF: 0 rifaximin 550 mg tablet 550 mg PO BID RF: 0 ceftriaxone 2 gram recon soln 2 g IV DAILY@1300 RF: 0 Novolin 70/30 U-100 Insulin 100 unit/mL (70-30) suspension 35 unit subcut QAM RF: 0 ascorbic acid (vitamin C) [Vitamin C] 500 mg Tablet 500 mg PO BID RF: 0 hydrocodone-acetaminophen 7.5-325 mg tablet 1 tab PO TID RF: 0 ferrous sulfate 325 mg (65 mg iron) Tablet 325 mg PO BID RF: 0 furosemide 20 mg tablet 20 mg PO UD RF: 0 gabapentin 100 mg capsule 100 mg PO DAILY@1230 RF: 0 Therems-M 27-0.4 mg Tablet 1 tab PO QAM RF: 0 heparin (porcine) 5,000 unit/mL Syringe 5,000 unit SUBCUT Q8H RF: 0 metoprolol tartrate 25 mg tablet 25 mg PO BID RF: 0 Bengay Greaseless 15-10 % Cream 1 applic TOPICAL DAILY PRN (Reason: Pain) RF: 0 Discontinued spironolactone 25 mg tablet 25 mg PO BIDM Qty: 180 RF: 0 Discharge Orders: Discharge Order (Routine); Ordered 06/26/19 Ordered By: Miguel Rajan Admission Data Admit Date/Time: 06/22/19 12:58 Attending Provider: Case Chahal Admit Provider: Duke Graham Primary Care Provider: Madhav Bennett Other Providers: Pamela Patterson ; Nicola Ramsay ; Audie Goldsmith ; Eagle Rios Other Interventions: Discharge Summary Assessment (RN) Last Done: 06/26/19 11:12 DC Date/Time DO NOT enter until pt leaves facility: 06/26/19 14:17 Supervising Physician Co-Signing Physician Notes Patient seen and examined with Dr. Rajan. I agree with their exam findings, review of systems, assessment and plan. I have personally reviewed the lab work and imaging from today. patient feels ready for discharge, no issues overnight reviewed labs, Cr back to baseline, electrolytes stable breathing well, eating well will make clear on discharge instructions that she needs to be on Lactulose Exam: obese female, NAD, AAOx3, lungs CTA bilaterally, decreased BS in right base, heart regular, no murmurs abdomen soft, NT, +BS, extremities warm, edema in right leg, left side with AKA - Hepatic encephalopathy:due to poor compliance with Lactulose no fault of the patient as she gets her medications from nursing staff she NEEDS to take her medication so that she has 3 loose stools a day, low protein diet ammonia level came down once lactulose was added back will make it clear on instructions that patient requires the Lactulose - AINSLEY on chronic kidney disease: resolved, Cr back to baseline - Infective endocarditis: continue on Ceftriaxone, no signs of sepsis, infection well controlled Resident Activity Tracking Resident Involvement: Resident Care Provided Care Provided: Adult Hospital Medicine
[2019-06-25] MEDS: cefTRIAXone SODIUM 2,000 MG in DEXTROSE 5% 50 ML IV SCH (15:35)
[2019-06-26] MEDS: INSULIN HUMAN NPH SC SCH ×2 (00:37→09:02)
[2019-06-26] MEDS: LEVOTHYROXINE SODIUM 200 MCG TABLET PO SCH (05:46)
[2019-06-26] MEDS: LEVOTHYROXINE SODIUM 50 MCG TABLET PO SCH (05:46)
[2019-06-26 06:44] LABS: Albumin Level 2.9 gm/dl (3.4-5.0); BUN Creatinine Ratio 32.7 (10-20); Bilirubin Direct 0.2 mg/dl (0-0.2); Calcium 8.2 mg/dl (8.5-10.1); Est GFR (African American) 26.5; Est GFR (Non-African American) 22.8; Potassium 5.1 mmol/L (3.5-5.1)
[2019-06-26 06:47] LABS: Bilirubin,Total 0.4 mg/dl (0.2-1); Total Protein 6.1 gm/dl (6.4-8.2)
[2019-06-26] MEDS: FLUTICASONE/SALMETEROL 250/50 (ADVAIR) 14 PUFF/1 INHALER INH SCH (08:47)
[2019-06-26] MEDS: HYDROCODONE/ACETAMINOPHEN 7.5/325MG TAB PO SCH ×2 (08:47→12:25)
[2019-06-26] MEDS: RIFAXIMIN 550 MG TABLET PO SCH (08:48)
[2019-06-26] MEDS: HEPARIN SOD 5,000 UNIT/0.5 ML VIAL SQ SCH (08:48)
[2019-06-26] MEDS: DICLOFENAC SOD 1% GEL 100 GM TUBE EXT SCH (08:48)
[2019-06-26] MEDS: METOPROLOL TARTRATE 25 MG TAB PO SCH (08:49)
[2019-06-26] MEDS: PANTOprazole 40 MG TAB PO SCH (08:49)
[2019-06-26] MEDS: ZINC SULFATE 220 MG CAPSULE PO SCH (08:49)
[2019-06-26] MEDS: CEROVITE ADV FORMULA TAB PO SCH (08:49)
[2019-06-26] MEDS: NYSTATIN POWDER 15GM BTL EXT SCH (08:50)
[2019-06-26] MEDS: TIOTROPIUM BROMIDE 5 PUFF/90 MCG INH INH SCH (08:50)
[2019-06-26] MEDS: LACTULOSE SYRUP 20 GM/30 ML UDC PO SCH ×2 (08:50→12:23)
[2019-06-26] MEDS: INSULIN ASPART 100 UNITS/ML 3 ML PEN SC SCH ×2 (09:02→12:22)
--- NOTE | 2019-06-26 11:13 | Nephrology Progress Note ---
Date of Service June 26, 2019 Assessment & Plan (1) AINSLEY (acute kidney injury): Valery Gloria is a 74-year-old female with past medical history significant for stage 4 chronic kidney disease baseline creatinine around 1.6- 1.7 and eGFR around 35. Chronic kidney disease most likely secondary to microvascular disease with history of hypertension, diabetes and obesity versus hepatorenal syndrome type 2 versus chronic intravascular volume depletion with high dose diuretics. Prior urinalysis showed only trace proteinuria. Admitted with progressive shortness of breath, change in mental status. On admission she was found to have right-sided large pleural effusion, acute kidney injury and hyperkalemia. Ammonia level was elevated at 104 Acute kidney injury most hemodynamically mediated. Acute kidney injury resolved and renal function staying relatively stable, although not quite at her baseline yet however creatinine has been staying around 2.1-2.2 over last few days and electrolyte acceptable. She continues to have significant lower extremity edema however seems intravascularly volume depleted. Lasix has been on hold. --Encourage po intake --monitor renal function electrolyte with renal panel daily --dose medications for GFR less than 30 --keep leg elevated and consider stockings for right lower extremity to help with the edema Will sign off (2) Encephalopathy, hepatic: (3) Anemia: (4) CKD (chronic kidney disease), stage IV: (5) Acute UTI: Subjective Valery Was seen and examined in her room this morning. She is overall feeling better and denies any shortness of breath, chest pain, no fever or chills. Estiven al function relatively stable, creatinine 2.1, electrolyte remain acceptable. Has been having decent urine output. Review of Systems Review of Systems: All systems reviewed & are unremarkable except as noted in HPI & below Physical Exam Constitutional: WD/WN, vitals as above + ill appearing; no acute distress Eyes: PERRL, conjunctivae normal, anicteric sclerae ENMT: Ears: no hearing impairment Mouth: + dry oral mucous membranes Neck: trachea midline Respiratory: normal respiratory effort, lungs clear to auscultation normal respiratory effort; no respiratory distress and no cough Auscultation: + diminished lung sounds; no crackles, no rales and no wheezes Cardiovascular: Rate/Rhythm: regular rate and regular rhythm Heart Sounds: normal S1 and normal S2 Extremities: + edema (rt LE, left LE BKA stump) Skin: no rashes, warm and dry Neurologic: moves all extremities and awake; not confused Psychiatric: A+Ox3, euthymic affect Results & Data Vital Signs (Past 12 Hours) Vital Signs Temp Pulse Resp BP Pulse Ox 06/26/19 07:10 36.7 C 73 20 125/72 100 PG Care Time/CCT Total # of Minutes Spent Total Time Spent with Patient: Total time spent is greater than 50% in coordination of care (as documented) at patient's floor/unit and/or counseling patient:
[2019-06-26] MEDS: cefTRIAXone SODIUM 2,000 MG in DEXTROSE 5% 50 ML IV SCH (12:20)
[2019-06-26] MEDS: GABAPENTIN 100 MG CAP PO SCH (12:22)
== END 2019-06-26 14:17 | DRG 441 ==
LOC: ED 10:32 → SUATTDRO 12:58 → 2E 12:58 → 4W 06-24 15:10